=== PATIENT | female | born 1960 | race Two or more races ===

== ENCOUNTER → 2020-09-09 13:20 | Outpatient (BNVA) | payer SELFPAY | PROVIDERS: PCP Internal Medicine; Visit Provider Internal Medicine | DX: E66.9 Obesity, unspecified (principal); Z68.37 Body mass index [BMI] 37.0-37.9, adult; I82.503 Chronic embolism and thrombosis of unspecified deep veins of lower extremity, bilateral; Z51.81 Encounter for therapeutic drug level monitoring; Z79.01 Long term (current) use of anticoagulants | CPT/HCPCS: 85610; 99214 ==

== ENCOUNTER → 2020-09-19 14:27 | Outpatient (BNVA) | payer OTHER, SELFPAY | PROVIDERS: Visit Provider Internal Medicine | DX: I82.503 Chronic embolism and thrombosis of unspecified deep veins of lower extremity, bilateral (principal); Z51.81 Encounter for therapeutic drug level monitoring; Z79.01 Long term (current) use of anticoagulants | CPT/HCPCS: 85610; 99211 ==

== ENCOUNTER → 2020-09-23 08:53 | Outpatient (BNVA) | payer MEDICAID, SELFPAY | PROVIDERS: Visit Provider Psychiatry & Neurology Neurology | DX: G47.33 Obstructive sleep apnea (adult) (pediatric) (principal); F41.8 Other specified anxiety disorders; I10 Essential (primary) hypertension; E05.90 Thyrotoxicosis, unspecified without thyrotoxic crisis or storm; G62.9 Polyneuropathy, unspecified; E53.8 Deficiency of other specified B group vitamins; E55.9 Vitamin D deficiency, unspecified; E66.9 Obesity, unspecified | CPT/HCPCS: 99202 ==

== ENCOUNTER 2020-10-14 17:21 | Outpatient (REF) | payer OTHER, SELFPAY | END 2020-10-14 17:22 | disposition home or self-care (01) | LOC: HO.LAB 17:21 | PROVIDERS: PCP Internal Medicine; Visit Provider Internal Medicine | DX: Z20.828 Contact with and (suspected) exposure to other viral communicable diseases (principal) | CPT/HCPCS: C9803; U0003 ==

== ENCOUNTER → 2020-10-23 15:28 | Outpatient (BNVA) | payer OTHER, SELFPAY | PROVIDERS: PCP Internal Medicine; Visit Provider Internal Medicine | DX: I82.503 Chronic embolism and thrombosis of unspecified deep veins of lower extremity, bilateral (principal); Z51.81 Encounter for therapeutic drug level monitoring; Z79.01 Long term (current) use of anticoagulants | CPT/HCPCS: 85610; 99211 ==

== ENCOUNTER → 2020-10-29 16:10 | Outpatient (BNVA) | payer OTHER, SELFPAY | PROVIDERS: PCP Internal Medicine; Visit Provider Internal Medicine | DX: I82.503 Chronic embolism and thrombosis of unspecified deep veins of lower extremity, bilateral (principal); Z51.81 Encounter for therapeutic drug level monitoring; Z79.01 Long term (current) use of anticoagulants | CPT/HCPCS: Q3014 ==

== ENCOUNTER → 2020-10-31 15:27 | Outpatient (BNVA) | payer OTHER, SELFPAY | PROVIDERS: PCP Internal Medicine; Visit Provider Internal Medicine | DX: I82.503 Chronic embolism and thrombosis of unspecified deep veins of lower extremity, bilateral (principal); Z51.81 Encounter for therapeutic drug level monitoring; Z79.01 Long term (current) use of anticoagulants | CPT/HCPCS: Q3014 ==

== ENCOUNTER → 2020-11-04 08:11 | Outpatient (BNVA) | payer OTHER, SELFPAY | PROVIDERS: PCP Internal Medicine; Referring Provider Internal Medicine; Visit Provider Surgery | DX: Z76.89 Persons encountering health services in other specified circumstances (principal) ==

== ENCOUNTER → 2020-11-05 12:29 | Outpatient (BNVA) | payer OTHER, SELFPAY | PROVIDERS: PCP Internal Medicine; Visit Provider Internal Medicine | DX: I82.503 Chronic embolism and thrombosis of unspecified deep veins of lower extremity, bilateral (principal); Z51.81 Encounter for therapeutic drug level monitoring; Z79.01 Long term (current) use of anticoagulants | CPT/HCPCS: Q3014 ==

== ENCOUNTER → 2020-11-11 14:21 | Outpatient (BNVA) | payer OTHER, SELFPAY | PROVIDERS: PCP Internal Medicine; Visit Provider Internal Medicine | DX: Z76.89 Persons encountering health services in other specified circumstances (principal) ==

== ENCOUNTER → 2020-11-17 17:08 | Outpatient (BNVA) | payer OTHER, SELFPAY | PROVIDERS: PCP Internal Medicine; Visit Provider Internal Medicine | DX: I82.503 Chronic embolism and thrombosis of unspecified deep veins of lower extremity, bilateral (principal); Z51.81 Encounter for therapeutic drug level monitoring; Z79.01 Long term (current) use of anticoagulants | CPT/HCPCS: Q3014 ==

== ENCOUNTER → 2020-11-20 14:51 | Outpatient (BNVA) | payer OTHER, SELFPAY | PROVIDERS: PCP Internal Medicine; Visit Provider Internal Medicine | DX: I82.503 Chronic embolism and thrombosis of unspecified deep veins of lower extremity, bilateral (principal); Z51.81 Encounter for therapeutic drug level monitoring; Z79.01 Long term (current) use of anticoagulants | CPT/HCPCS: Q3014 ==

== ENCOUNTER → 2020-11-24 09:38 | Outpatient (BNVA) | payer OTHER, MEDICAID, SELFPAY | PROVIDERS: PCP Internal Medicine; Visit Provider Surgery | DX: Z76.89 Persons encountering health services in other specified circumstances (principal) ==

== ENCOUNTER → 2020-11-25 10:00 | Outpatient (BNVA) | payer OTHER, SELFPAY | PROVIDERS: Visit Provider Psychiatry & Neurology Neurology | DX: Z76.89 Persons encountering health services in other specified circumstances (principal) ==

== ENCOUNTER → 2020-11-26 08:11 | Outpatient (BNVA) | payer OTHER, SELFPAY | PROVIDERS: PCP Internal Medicine; Visit Provider Dietitian, Registered | DX: E66.9 Obesity, unspecified (principal); Z68.38 Body mass index [BMI] 38.0-38.9, adult | CPT/HCPCS: Q3014 ==

== ENCOUNTER → 2020-12-03 11:40 | Outpatient (BNVA) | payer OTHER, SELFPAY | PROVIDERS: PCP Internal Medicine; Visit Provider Internal Medicine | DX: I82.503 Chronic embolism and thrombosis of unspecified deep veins of lower extremity, bilateral (principal); Z51.81 Encounter for therapeutic drug level monitoring; Z79.01 Long term (current) use of anticoagulants | CPT/HCPCS: Q3014 ==

== ENCOUNTER → 2020-12-10 14:45 | Outpatient (BNVA) | payer OTHER, SELFPAY | PROVIDERS: PCP Internal Medicine; Visit Provider Internal Medicine | DX: I82.503 Chronic embolism and thrombosis of unspecified deep veins of lower extremity, bilateral (principal); Z51.81 Encounter for therapeutic drug level monitoring; Z79.01 Long term (current) use of anticoagulants | CPT/HCPCS: Q3014 ==

== ENCOUNTER → 2020-12-17 11:00 | Outpatient (BNVA) | payer OTHER, SELFPAY | PROVIDERS: PCP Internal Medicine; Visit Provider Internal Medicine | DX: I82.503 Chronic embolism and thrombosis of unspecified deep veins of lower extremity, bilateral (principal); Z51.81 Encounter for therapeutic drug level monitoring; Z79.01 Long term (current) use of anticoagulants | CPT/HCPCS: Q3014 ==

== ENCOUNTER → 2020-12-22 13:14 | Outpatient (BNVA) | payer OTHER, SELFPAY | PROVIDERS: PCP Internal Medicine; Visit Provider Internal Medicine | DX: I82.503 Chronic embolism and thrombosis of unspecified deep veins of lower extremity, bilateral (principal); Z51.81 Encounter for therapeutic drug level monitoring; Z79.01 Long term (current) use of anticoagulants | CPT/HCPCS: Q3014 ==

== ENCOUNTER → 2020-12-25 08:10 | Outpatient (BNVA) | payer OTHER, SELFPAY | PROVIDERS: PCP Internal Medicine; Visit Provider Dietitian, Registered ==

== ENCOUNTER 2020-12-26 13:38 | Outpatient (REF) | payer OTHER, SELFPAY ==
--- NOTE | ~2020-12-26 | MM_ITS ---
EXAMINATION: MM SCREENING DIGITAL BREAST TOMOSYNTHESIS, BILATERAL CLINICAL INFORMATION: Screening. Asymptomatic. The lifetime risk of breast cancer based on the Tyrer-Cuzick Model is 5%. COMPARISON: Mammography: 10/31/2018, 12/13/2016 TECHNIQUE: Digital breast tomosynthesis is performed in both the craniocaudal and mediolateral oblique views along with computer-aided detection (CAD). Synthesized 2D images are generated from the tomosynthesis. Additional left MLO view is provided. FINDINGS: There are scattered areas of fibroglandular density (ACR BI-RADS breast composition Category b). There are no significant masses, abnormal calcifications, or other abnormalities. The axilla and skin contours are unremarkable. No significant changes. MM/MM tomosynthesis screening BI IMPRESSION: No mammographic evidence of malignancy. ASSESSMENT: BI-RADS 1: Negative RECOMMENDATION: Routine annual mammography screening. This patient's information was entered into a reminder system with a target due date for their next mammogram.
== END 2020-12-26 13:39 | disposition home or self-care (01) ==
LOC: HO.MAMMO 13:38
PROVIDERS: PCP Internal Medicine; Visit Provider Internal Medicine
DX: Z12.31 Encounter for screening mammogram for malignant neoplasm of breast (principal)
CPT/HCPCS: 77063; 77067

== ENCOUNTER → 2020-12-30 10:14 | Outpatient (BNVA) | payer OTHER, SELFPAY | PROVIDERS: PCP Internal Medicine; Visit Provider Internal Medicine | DX: I82.503 Chronic embolism and thrombosis of unspecified deep veins of lower extremity, bilateral (principal); Z51.81 Encounter for therapeutic drug level monitoring; Z79.01 Long term (current) use of anticoagulants | CPT/HCPCS: 99211 ==

== ENCOUNTER → 2021-01-02 08:36 | Outpatient (BNVA) | payer OTHER, SELFPAY | PROVIDERS: PCP Internal Medicine; Visit Provider Surgery ==

== ENCOUNTER → 2021-01-06 11:44 | Outpatient (BNVA) | payer OTHER, SELFPAY | PROVIDERS: PCP Internal Medicine; Visit Provider Internal Medicine | DX: I82.503 Chronic embolism and thrombosis of unspecified deep veins of lower extremity, bilateral (principal); Z51.81 Encounter for therapeutic drug level monitoring; Z79.01 Long term (current) use of anticoagulants | CPT/HCPCS: Q3014 ==

== ENCOUNTER → 2021-01-12 14:07 | Outpatient (BNVA) | payer OTHER, SELFPAY | PROVIDERS: PCP Internal Medicine; Visit Provider Internal Medicine | DX: I82.503 Chronic embolism and thrombosis of unspecified deep veins of lower extremity, bilateral (principal); Z51.81 Encounter for therapeutic drug level monitoring; Z79.01 Long term (current) use of anticoagulants | CPT/HCPCS: 99211 ==

== ENCOUNTER → 2021-01-19 15:09 | Outpatient (BNVA) | payer OTHER, SELFPAY | PROVIDERS: PCP Internal Medicine; Visit Provider Internal Medicine | DX: I82.503 Chronic embolism and thrombosis of unspecified deep veins of lower extremity, bilateral (principal); Z51.81 Encounter for therapeutic drug level monitoring; Z79.01 Long term (current) use of anticoagulants | CPT/HCPCS: Q3014 ==

== ENCOUNTER → 2021-01-23 15:57 | Outpatient (BNVA) | payer OTHER, SELFPAY | PROVIDERS: PCP Internal Medicine; Visit Provider Internal Medicine | DX: I82.503 Chronic embolism and thrombosis of unspecified deep veins of lower extremity, bilateral (principal); Z51.81 Encounter for therapeutic drug level monitoring; Z79.01 Long term (current) use of anticoagulants | CPT/HCPCS: Q3014 ==

== ENCOUNTER 2021-01-23 16:54 | Emergency (ER) | payer OTHER, SELFPAY ==
--- NOTE | ~2021-01-23 | XR_ITS ---
EXAMINATION: XR CHEST CLINICAL INFORMATION: Left lower extremity Swelling COMPARISON: Chest x-ray 06/12/2020 TECHNIQUE: 2 views of the chest were obtained. 1740 hours FINDINGS: No significant abnormality is noted involving the heart, lungs, mediastinum, bony thorax or soft tissues. IVC filter in abdomen. XR/XR chest 2V IMPRESSION: Unremarkable examination.
--- NOTE | ~2021-01-23 | US_ITS ---
EXAMINATION: US VENOUS ULTRASOUND WITH DOPPLER LOWER EXTREMITY, LEFT CLINICAL INFORMATION: Edema. History of DVT. COMPARISON: Prior venous Doppler ultrasound exam left lower extremity 12/03/2016 TECHNIQUE: Ultrasound of the deep veins is performed from the hip to the calf with compression sonography and color and pulse Doppler assessment. Spectral analysis with color-flow imaging is performed. FINDINGS: There is normal venous compression and respiratory variation and augmented flow. The visualized common femoral vein, superficial femoral vein, profunda femoral vein, popliteal vein, and the trifurcation region shows no evidence of deep venous thrombosis. There is no significant popliteal fossa cyst. If the patient's symptoms persist, followup ultrasound in 5 days 7 days might be of value to exclude proximal propagation from a non-visualized calf vein. US/US venous duplex LE IMPRESSION: No DVT demonstrated in the left lower extremity.
[2021-01-23 17:04] VITALS: BP 155/78; PULSE 63; RESP 20; TEMP 36.4; O2SAT 100; BMI 38.6
--- NOTE | 2021-01-23 17:31 | ECG_ITS ---
Test Reason : DVT Blood Pressure : / mmHG Vent. Rate : 060 BPM Atrial Rate : 060 BPM P-R Int : 154 ms QRS Dur : 084 ms QT Int : 448 ms P-R-T Axes : 030 011 011 degrees QTc Int : 448 ms Normal sinus rhythm Normal ECG When compared with ECG of 12-JUN-2020 15:55, No significant change was found Referred By: Shea Bello Electronically Signed By:KITA RIVERS
--- NOTE | 2021-01-23 18:00 | PC.NURSE ---
pt return from radiology
--- NOTE | 2021-01-23 18:32 | ED.EXTPRO ---
HPI - Extremity Problem General Chief complaint: Extremity Problem Stated complaint: R/O DVT Time Seen by Provider: 01/23/21 17:29 Source: patient Mode of arrival: ambulatory Limitations: no limitations History of Present Illness HPI Narrative: 60-year-old female with past medical history of DVT with IVC filter on Coumadin, asthma, anxiety, hyperlipidemia, depression, chronic back pain with degenerative disc disease, obstructive sleep apnea, insomnia presents with left lower extremity swelling with concern of recurrent DVT. She does not report chest pain or pressure, palpitations, shortness of breath, shortness of breath on exertions, weakness, abdominal pain, abdominal distention, dysuria, hematuria, loss of balance or weakness. Related Data Home Medications Medication Instructions Recorded Confirmed albuterol sulfate 90 mcg/actuation 2 puff INHALATION Q6H PRN 09/09/20 01/23/21 aerosol inhaler fluticasone propionate 220 2 puff INHALATION BID 09/09/20 01/23/21 mcg/actuation HFA aerosol inhaler gabapentin 600 mg tablet 600 mg PO TID 09/09/20 01/23/21 mecobalamin (vitamin B12) 1,000 1,000 mcg PO DAILY 09/09/20 01/23/21 mcg chewable tablet zolpidem 10 mg tablet 10 mg PO BEDTIME PRN 09/09/20 01/23/21 escitalopram oxalate 10 mg tablet 10 mg PO DAILY 10/01/20 01/23/21 venlafaxine 150 mg 150 mg PO DAILY 10/01/20 01/23/21 capsule,extended release 24 hr cholecalciferol (vitamin D3) 1,250 1,250 mcg PO QWEEK 11/07/20 01/23/21 mcg (50,000 unit) capsule escitalopram oxalate 20 mg tablet 20 mg PO QAM 01/19/21 01/23/21 lorazepam 0.5 mg tablet 0.5 mg PO QAM 01/19/21 01/23/21 Previous Rx's Medication Instructions Recorded atorvastatin 40 mg tablet 40 mg PO DAILY #60 tab 09/09/20 ondansetron 4 mg disintegrating 4 mg PO Q8H PRN 10 Days #30 tab 10/31/20 tablet benzonatate 100 mg capsule 100 mg PO BID PRN 10 Days #30 cap 11/07/20 warfarin 5 mg tablet 10 mg PO DAILY #180 tab 12/02/20 albuterol sulfate 2.5 mg CONTINUOUS NEBULIZATION QID 12/03/20 PRN 30 Days #360 ml tramadol 50 mg tablet 50 mg PO BID PRN 30 Days #60 tab 01/08/21 Allergies Allergy/AdvReac Type Severity Reaction Status Date / Time No Known Allergies Allergy Verified 01/06/21 10:44 Review of Systems Review of Systems: Constitutional: No Fever, No Chills ENT/Mouth: No Ear Pain, No Hoarseness, No sore throat Eyes: No Eye Pain, No Swelling, No Redness, No Foreign Body Cardiovascular: No Chest Pain, No SOB Respiratory: No Cough, No Dyspnea Gastrointestinal: No Nausea, No Vomiting, No Diarrhea, No abdominal Pain Genitourinary: No Dysuria, No Hematuria Musculoskeletal: Positive left lower extremity swelling, No joint pain, No Myalgias, No Joint Swelling Skin: No Skin lacerations, No rash Neuro: No Weakness, No Numbness, No Paresthesias, No Loss of Consciousness, No Dizziness, No Headache Psych: No Anxiety/Panic, No Depression Heme/Lymph: no easy bruising, no Lymphadenopathy Endocrine: No Polyuria, No Polydipsia Yes all other systems are reviewed and are negative PMFSH Past Medical History Attestation statement: The following information was validated with the patient. Source: old records reviewed Medical History Anxiety Asthma Chronic low back pain Condyloma acuminata COVID-19 DDD (degenerative disc disease) Depression DVT (deep venous thrombosis) Fibromyalgia Hyperthyroidism Insomnia Lung granuloma Neuropathy Obesity (BMI 30-39.9) Obstructive sleep apnea Obstructive sleep apnea Phlegmasia cerulea dolens Phlegmasia cerulea dolens Vitamin B12 deficiency Vitamin D deficiency Surgical History Benign neoplasm of neck History of bilateral oophorectomy History of bilateral tubal ligation History of carpal tunnel release History of colonoscopy History of embolectomy S/P IVC filter Family History Family History Father Liver cirrhosis Cancer Mother Heart attack Coronary artery disease Asthma Diabetes mellitus Brother No problems noted. Sister No problems noted. Sister No problems noted. Sister No problems noted. Sister No problems noted. Sister No problems noted. Sister No problems noted. Sister No problems noted. Sister No problems noted. Sister No problems noted. Sister No problems noted. Sister No problems noted. Sister No problems noted. Sister No problems noted. Paternal Aunt Colon cancer Son Histiocytosis Son No problems noted. Son No problems noted. Social History Social History Alcohol intake: never Smoking Status: Never smoker Smoked in Last 30 Days: No Use of substances other than those prescribed or required for medical reasons: No Advance Directives: No Advance Directives Information Provided: Yes Physical Exam Vital Signs: Vital Signs: Last Vital Signs Temp 98.0 F 01/23/21 20:10 Pulse 66 01/23/21 20:10 Resp 19 01/23/21 20:10 BP 151/76 H 01/23/21 20:10 Pulse Ox 99 01/23/21 20:10 Body Mass Index 38.6 Appearance: Alert. Oriented X3. No acute distress. Eyes: Pupils equal, round and reactive to light. EOMI, sclera nonicteric ENT: Pharynx normal. Moist mucous membranes Neck: Normal inspection. Neck supple. CVS: Normal heart rate and rhythm. Pulses normal. Respiratory: No respiratory distress. Lung sounds clear to auscultation all lobes Abdomen: Soft and nontender. Skin: Skin warm and dry. Normal skin color. Normal skin turgor. Extremities: Left lower extremity edema and swelling, no erythema noted. Full range of motion Neuro: No motor deficit. No sensory deficit. Cranial nerves 2-12 intact Course Course Course Narrative: 60-year-old female with past medical history of DVT with IVC filter on Coumadin, anxiety, depression, asthma, chronic lower back pain with degenerative disc disease, fibromyalgia, insomnia, and obstructive sleep apnea presents with swelling to the left lower extremity. Plan of care is for duplex study to left lower extremity, CBC, Chem 7, PT INR. Will order BNP and chest x-ray to rule out CHF. Review of records indicates that she had normal stress test on July 04, 2020. Last visit with Dr. Garland was 01/02/2021 with a normal visit, meets with Dr. Garland on a regular basis for weight loss management. At 7:18 p.m. venous duplex is negative. Labs are pending. At 7:55 p.m. lab values are normal, INR is 1.8, she was advised to follow-up with [facility] or whomever prescribed her Coumadin for titration. Patient verbalized understanding of and agrees to plan of care to discharge home. MDM - Extremity (Nontraumatic) Differential Diagnosis Differential diagnosis: Likely cellulitis, lower extremity edema and deep vein thrombosis of lower extremity Medical Records Attestation: I reviewed the patient's medical records. Lab Data Attestation: I reviewed the patient's lab results. Result diagrams: 01/23/21 19:10 01/23/21 19:10 Labs: Lab Results 01/23/21 01/23/21 01/23/21 Range/Units 19:10 19:10 19:10 WBC 8.2 (4.8-10.8) X10*3/uL RBC 4.49 (4.20-5.50) X10*6/uL Hgb 12.4 (12.0-16.0) g/dl Hct 38.9 (37-47) % MCV 86.6 (80-98) fL MCH 27.6 (27.0-33.0) pg MCHC 31.9 (31.0-35.0) g/dl RDW 14.6 (11.0-16.0) % Plt Count 224 (160-400) X10*3/uL MPV 10.5 (9.4-12.3) fL Immature Gran % (Auto) 0.2 (0.0-0.4) % Neut % (Auto) 51.2 (45-73) % Lymph % (Auto) 39.9 (20-40) % Davison % (Auto) 7.3 (2-11) % Eos % (Auto) 0.9 (0-4) % Baso % (Auto) 0.5 (0-2) % Lymph # (Auto) 3.3 (1.2-4.9) X10*3/uL Davison # (Auto) 0.6 (0.1-1.2) X10*3/uL Eos # (Auto) 0.1 (0.0-0.4) X10*3/uL Baso # (Auto) 0.0 (0.0-0.2) X10*3/uL Abs Immat Gran (auto) 0.02 (0.00-0.03) X10*3/uL Absolute Neuts (auto) 4.2 (2.0-8.3) X10*3/uL Absolute Nucleated RBC 0.000 (0.0-0.012) X10*3/uL Nucleated RBC % (auto) 0.0 (0.0-0.2) /100WBC PT 21.8 H (10.8-13.0) SEC INR 1.8 H (0.9-1.1) APTT 39.9 H (24.1-38.0) SEC Sodium 139 (135-145) mmol/L Potassium 4.2 (3.3-5.1) mmol/L Chloride 105 (96-108) mmol/L Carbon Dioxide 24 (22-29) mmol/L Anion Gap 14 (12-20) BUN 19 H (9-16) mg/dL Creatinine 0.79 (0.5-1.4) mg/dL Estim Creat Clear Calc 82.7 Estimated GFR > 60 Random Glucose 88 (60-115) mg/dL Calcium 9.1 (8.4-10.2) mg/dL B-Natriuretic Peptide (<100) pg/mL 01/23/21 Range/Units 19:10 WBC (4.8-10.8) X10*3/uL RBC (4.20-5.50) X10*6/uL Hgb (12.0-16.0) g/dl Hct (37-47) % MCV (80-98) fL MCH (27.0-33.0) pg MCHC (31.0-35.0) g/dl RDW (11.0-16.0) % Plt Count (160-400) X10*3/uL MPV (9.4-12.3) fL Immature Gran % (Auto) (0.0-0.4) % Neut % (Auto) (45-73) % Lymph % (Auto) (20-40) % Davison % (Auto) (2-11) % Eos % (Auto) (0-4) % Baso % (Auto) (0-2) % Lymph # (Auto) (1.2-4.9) X10*3/uL Davison # (Auto) (0.1-1.2) X10*3/uL Eos # (Auto) (0.0-0.4) X10*3/uL Baso # (Auto) (0.0-0.2) X10*3/uL Abs Immat Gran (auto) (0.00-0.03) X10*3/uL Absolute Neuts (auto) (2.0-8.3) X10*3/uL Absolute Nucleated RBC (0.0-0.012) X10*3/uL Nucleated RBC % (auto) (0.0-0.2) /100WBC PT (10.8-13.0) SEC INR (0.9-1.1) APTT (24.1-38.0) SEC Sodium (135-145) mmol/L Potassium (3.3-5.1) mmol/L Chloride (96-108) mmol/L Carbon Dioxide (22-29) mmol/L Anion Gap (12-20) BUN (9-16) mg/dL Creatinine (0.5-1.4) mg/dL Estim Creat Clear Calc Estimated GFR Random Glucose (60-115) mg/dL Calcium (8.4-10.2) mg/dL B-Natriuretic Peptide 16 (<100) pg/mL Imaging Data Venous US: Attestation: I personally reviewed and interpreted this imaging study as follows: Radiologist's impression: EXAMINATION: US VENOUS ULTRASOUND WITH DOPPLER LOWER EXTREMITY, LEFT CLINICAL INFORMATION: Edema. History of DVT. COMPARISON: Prior venous Doppler ultrasound exam left lower extremity 12/03/2016 TECHNIQUE: Ultrasound of the deep veins is performed from the hip to the calf with compression sonography and color and pulse Doppler assessment. Spectral analysis with color-flow imaging is performed. FINDINGS: There is normal venous compression and respiratory variation and augmented flow. The visualized common femoral vein, superficial femoral vein, profunda femoral vein, popliteal vein, and the trifurcation region shows no evidence of deep venous thrombosis. There is no significant popliteal fossa cyst. If the patient's symptoms persist, followup ultrasound in 5 days 7 days might be of value to exclude proximal propagation from a non-visualized calf vein. US/US venous duplex LE LT IMPRESSION: No DVT demonstrated in the left lower extremity. Chest x-ray: Attestation: I personally reviewed and interpreted this imaging study as follows: Radiologist's impression: EXAMINATION: XR CHEST CLINICAL INFORMATION: Left lower extremity Swelling COMPARISON: Chest x-ray 06/12/2020 TECHNIQUE: 2 views of the chest were obtained. 1740 hours FINDINGS: No significant abnormality is noted involving the heart, lungs, mediastinum, bony thorax or soft tissues. IVC filter in abdomen. XR/XR chest 2V IMPRESSION: Unremarkable examination. ECG Data Attestation EKG: I personally reviewed and interpreted this ECG as follows: ECG interpretation date: 01/23/21 ECG interpretation time: 18:23 Prior ECG tracings: available for review Interpretation: Vent. rate 60 BPM UT interval 154 ms QRS duration 84 ms QT/QTc 448/448 ms P-R-T axes 30 11 11 Normal sinus rhythm Normal ECG When compared with ECG of 12-JUN-2020 15:55, No significant change was found Discharge Plan Discharge Clinical Impression: Lower extremity edema Patient Disposition: Home, Self-Care Instructions: Leg Edema (ED) Additional Instructions: You were evaluated for left lower extremity edema. Venous duplex ultrasound is negative for blood clot, your INR is 1.8. Please speak to him ever prescribed your Coumadin for proper titration. Thank you for choosing this emergency department for evaluation. Please follow-up with primary care physician as needed. Return to the emergency department for any new, concerning, or worsening symptoms. Prescriptions: No Action ondansetron 4 mg tablet,disintegrating 4 mg PO Q8H PRN (Reason: nausea and vomiting) 10 Days Qty: 30 RF: 1 warfarin 5 mg tablet 10 mg PO DAILY Qty: 180 RF: 0 albuterol sulfate 2.5 mg /3 mL (0.083 %) solution for nebulization 2.5 mg continuous nebulization QID PRN (Reason: shortness of breath or wheezing) 30 Days Qty: 360 RF: 12 tramadol 50 mg tablet 50 mg PO BID PRN (Reason: pain) 30 Days Qty: 60 RF: 0 escitalopram oxalate [Lexapro] 10 mg tablet 10 mg PO DAILY RF: 0 cholecalciferol (vitamin D3) 1,250 mcg (50,000 unit) capsule 1,250 mcg PO QWEEK RF: 0 benzonatate [Tessalon Perles] 100 mg capsule 100 mg PO BID PRN (Reason: cough) 10 Days Qty: 30 RF: 0 escitalopram oxalate 20 mg tablet 20 mg PO QAM RF: 0 lorazepam 0.5 mg tablet 0.5 mg PO QAM RF: 0 gabapentin 600 mg tablet 600 mg PO TID RF: 0 Flovent HFA 220 mcg/actuation HFA aerosol inhaler 2 puff inhalation BID RF: 0 albuterol sulfate [Ventolin HFA] 90 mcg/actuation HFA aerosol inhaler 2 puff inhalation Q6H PRNRF: 0 mecobalamin (vitamin B12) 1,000 mcg tablet,chewable 1,000 mcg PO DAILY RF: 0 zolpidem [Ambien] 10 mg tablet 10 mg PO BEDTIME PRNRF: 0 venlafaxine 150 mg capsule,extended release 24hr 150 mg PO DAILY RF: 0 atorvastatin 40 mg tablet 40 mg PO DAILY Qty: 60 RF: 0 Interventions: ED Discharge Assessment Last Done: 01/23/21 20:18 Discharge Date/Time: 01/23/21 20:19
--- NOTE | 2021-01-23 19:00 | PC.NURSE ---
iv inserted/labs drawn
[2021-01-23 19:16] LABS: MANUAL DIFF FLAG NO
[2021-01-23 19:18] LABS: Basophils Percent Auto 0.5 % (0-2); Eosinophils Absolute Auto 0.1 X10*3/uL (0.0-0.4); Eosinophils Percent Auto 0.9 % (0-4); Hematocrit 38.9 % (37-47); Hemoglobin 12.4 g/dl (12.0-16.0); Imm Gran Abs Auto 0.02 X10*3/uL (0.00-0.03); Imm Gran Pct Auto 0.2 % (0.0-0.4); Lymphocytes Absolute Auto 3.3 X10*3/uL (1.2-4.9); Lymphocytes Percent Auto 39.9 % (20-40); Mean Corpuscular HGB Conc 31.9 g/dl (31.0-35.0); Mean Corpuscular Hemoglobin 27.6 pg (27.0-33.0); Mean Corpuscular Volume 86.6 fL (80-98); Mean Platelet Volume 10.5 fL (9.4-12.3); Monocytes Absolute Auto 0.6 X10*3/uL (0.1-1.2); Monocytes Percent Auto 7.3 % (2-11); Neutrophils Absolute Auto 4.2 X10*3/uL (2.0-8.3); Neutrophils Percent Auto 51.2 % (45-73); Platelet Count 224 X10*3/uL (160-400); Red Blood Count 4.49 X10*6/uL (4.20-5.50); Red Cell Distribution Width 14.6 % (11.0-16.0); White Blood Count 8.2 X10*3/uL (4.8-10.8)
[2021-01-23 19:28] LABS: INTERNATIONAL NORM RATIO 1.8 (0.9-1.1); Prothrombin Time 21.8 SEC (10.8-13.0)
[2021-01-23 19:30] LABS: Partial Thromboplastin Time 39.9 SEC (24.1-38.0)
[2021-01-23 19:41] LABS: Anion Gap 14 (12-20); Blood Urea Nitrogen 19 mg/dL (9-16); Calcium 9.1 mg/dL (8.4-10.2); Carbon Dioxide 24 mmol/L (22-29); Chloride 105 mmol/L (96-108); Creatinine Clr Calc Pharmacy 82.7; Estimated Glomerular Filt Rate > 60; Glucose Random 88 mg/dL (60-115); Potassium 4.2 mmol/L (3.3-5.1); Sodium 139 mmol/L (135-145)
[2021-01-23 19:49] LABS: B Type Natriuretic Peptide 16 pg/mL (<100)
[2021-01-23 20:10] VITALS: BP 151/76; PULSE 66; RESP 19; TEMP 36.7; O2SAT 99
== END 2021-01-23 20:19 | disposition home or self-care (01) ==
PROVIDERS: Nurse Practitioner Family; Emergency Provider Internal Medicine; PCP Internal Medicine
DX: R60.0 Localized edema (principal); E78.5 Hyperlipidemia, unspecified; J45.909 Unspecified asthma, uncomplicated; Z86.718 Personal history of other venous thrombosis and embolism; Z79.01 Long term (current) use of anticoagulants; Z79.899 Other long term (current) drug therapy; Z86.16 Personal history of COVID-19
CPT/HCPCS: 36415; 71046; 80048; 83880; 85025; 85610; 85730; 93005; 93971; 99284

== ENCOUNTER → 2021-01-27 16:09 | Outpatient (BNVA) | payer OTHER, SELFPAY | PROVIDERS: PCP Internal Medicine; Visit Provider Internal Medicine | DX: I82.503 Chronic embolism and thrombosis of unspecified deep veins of lower extremity, bilateral (principal); Z51.81 Encounter for therapeutic drug level monitoring; Z79.01 Long term (current) use of anticoagulants | CPT/HCPCS: Q3014 ==

== ENCOUNTER → 2021-02-02 08:45 | Outpatient (BNVA) | payer OTHER, SELFPAY | PROVIDERS: PCP Internal Medicine; Visit Provider Dietitian, Registered ==

== ENCOUNTER → 2021-02-03 10:04 | Outpatient (BNVA) | payer OTHER, SELFPAY | PROVIDERS: PCP Internal Medicine; Visit Provider Psychiatry & Neurology Neurology | DX: G47.33 Obstructive sleep apnea (adult) (pediatric) (principal) ==

== ENCOUNTER → 2021-02-04 11:08 | Outpatient (BNVA) | payer OTHER, SELFPAY | PROVIDERS: PCP Internal Medicine; Visit Provider Internal Medicine | DX: I82.503 Chronic embolism and thrombosis of unspecified deep veins of lower extremity, bilateral (principal); Z51.81 Encounter for therapeutic drug level monitoring; Z79.01 Long term (current) use of anticoagulants | CPT/HCPCS: Q3014 ==

== ENCOUNTER → 2021-02-11 11:42 | Outpatient (BNVA) | payer OTHER, SELFPAY | PROVIDERS: PCP Internal Medicine; Visit Provider Internal Medicine | DX: I82.503 Chronic embolism and thrombosis of unspecified deep veins of lower extremity, bilateral (principal); Z51.81 Encounter for therapeutic drug level monitoring; Z79.01 Long term (current) use of anticoagulants | CPT/HCPCS: Q3014 ==

== ENCOUNTER → 2021-02-18 10:56 | Outpatient (BNVA) | payer OTHER, SELFPAY | PROVIDERS: PCP Internal Medicine; Visit Provider Internal Medicine | DX: I82.503 Chronic embolism and thrombosis of unspecified deep veins of lower extremity, bilateral (principal); Z51.81 Encounter for therapeutic drug level monitoring; Z79.01 Long term (current) use of anticoagulants | CPT/HCPCS: Q3014 ==

== ENCOUNTER → 2021-02-25 16:18 | Outpatient (BNVA) | payer OTHER, SELFPAY | PROVIDERS: PCP Internal Medicine; Visit Provider Internal Medicine | DX: I82.503 Chronic embolism and thrombosis of unspecified deep veins of lower extremity, bilateral (principal); Z51.81 Encounter for therapeutic drug level monitoring; Z79.01 Long term (current) use of anticoagulants | CPT/HCPCS: Q3014 ==

== ENCOUNTER → 2021-03-04 10:02 | Outpatient (BNVA) | payer OTHER, SELFPAY | PROVIDERS: PCP Internal Medicine; Visit Provider Internal Medicine | DX: I82.503 Chronic embolism and thrombosis of unspecified deep veins of lower extremity, bilateral (principal); Z79.01 Long term (current) use of anticoagulants; Z51.81 Encounter for therapeutic drug level monitoring | CPT/HCPCS: Q3014 ==

== ENCOUNTER 2021-03-10 14:30 | Outpatient (REF) | payer OTHER, SELFPAY ==
--- NOTE | ~2021-03-10 | XR_ITS ---
EXAMINATION: XR CHEST CLINICAL INFORMATION: Cough. COMPARISON: Most recent chest radiograph dated 01/23/2021 TECHNIQUE: 2 views of the chest were obtained. FINDINGS: Probable calcified granuloma within the left lower lobe, unchanged. No new airspace consolidation. No pleural effusion or pneumothorax. Stable cardiomediastinal silhouette. Partially visualized IVC filter. XR/XR chest 2V IMPRESSION: No acute cardiopulmonary findings.
== END 2021-03-10 14:31 | disposition home or self-care (01) ==
LOC: HO.XRAY 14:30
PROVIDERS: PCP Internal Medicine; Visit Provider Internal Medicine
DX: J45.41 Moderate persistent asthma with (acute) exacerbation (principal); J40 Bronchitis, not specified as acute or chronic; R05 Cough; U07.1 COVID-19; G47.33 Obstructive sleep apnea (adult) (pediatric); Z79.899 Other long term (current) drug therapy; Z79.51 Long term (current) use of inhaled steroids
CPT/HCPCS: 71046; 99202

== ENCOUNTER → 2021-03-11 11:46 | Outpatient (BNVA) | payer OTHER, SELFPAY | PROVIDERS: PCP Internal Medicine; Visit Provider Internal Medicine | DX: I82.503 Chronic embolism and thrombosis of unspecified deep veins of lower extremity, bilateral (principal); Z79.01 Long term (current) use of anticoagulants; Z51.81 Encounter for therapeutic drug level monitoring | CPT/HCPCS: Q3014 ==

== ENCOUNTER → 2021-03-18 10:37 | Outpatient (BNVA) | payer OTHER, SELFPAY | PROVIDERS: PCP Internal Medicine; Visit Provider Internal Medicine | DX: I82.503 Chronic embolism and thrombosis of unspecified deep veins of lower extremity, bilateral (principal); Z51.81 Encounter for therapeutic drug level monitoring; Z79.01 Long term (current) use of anticoagulants | CPT/HCPCS: 85610; 99211 ==

== ENCOUNTER → 2021-04-01 10:30 | Outpatient (BNVA) | payer OTHER, SELFPAY | PROVIDERS: PCP Internal Medicine; Visit Provider Internal Medicine | DX: I82.503 Chronic embolism and thrombosis of unspecified deep veins of lower extremity, bilateral (principal); Z51.81 Encounter for therapeutic drug level monitoring; Z79.01 Long term (current) use of anticoagulants | CPT/HCPCS: 85610; 99211 ==

== ENCOUNTER → 2021-04-06 10:49 | Outpatient (BNVA) | payer OTHER, SELFPAY | PROVIDERS: PCP Internal Medicine; Visit Provider Internal Medicine | DX: I82.503 Chronic embolism and thrombosis of unspecified deep veins of lower extremity, bilateral (principal); Z51.81 Encounter for therapeutic drug level monitoring; Z79.01 Long term (current) use of anticoagulants | CPT/HCPCS: 85610; 99211 ==

== ENCOUNTER → 2021-04-08 11:17 | Outpatient (BNVA) | payer OTHER, SELFPAY | PROVIDERS: PCP Internal Medicine; Visit Provider Internal Medicine | DX: J45.41 Moderate persistent asthma with (acute) exacerbation (principal); J40 Bronchitis, not specified as acute or chronic; G47.33 Obstructive sleep apnea (adult) (pediatric) | CPT/HCPCS: 99212 ==

== ENCOUNTER → 2021-04-21 10:03 | Outpatient (BNVA) | payer OTHER, SELFPAY | PROVIDERS: PCP Internal Medicine; Visit Provider Internal Medicine | DX: I82.503 Chronic embolism and thrombosis of unspecified deep veins of lower extremity, bilateral (principal); Z51.81 Encounter for therapeutic drug level monitoring; Z79.01 Long term (current) use of anticoagulants | CPT/HCPCS: 85610; 99211 ==

== ENCOUNTER 2021-04-24 10:31 | Outpatient (REF) | payer OTHER, SELFPAY ==
--- NOTE | 2021-04-24 15:57 | PFT_ITS ---
FLOWS: FEV1 101% of predicted at 2.63 L. FVC 88% of predicted at 2.91 L. FEV1 to FVC ratio of 0.90. No bronchodilator response. LUNG VOLUMES: Total lung capacity 85% of predicted at 4.44 L. Residual volume 72% of predicted at 1.51 L. Slow vital capacity 94% of predicted at 2.93 L. Expiratory reserve volume 49% of predicted at 0.43 L. Diffusion capacity is mildly decreased, diffusion capacity adjust to normal after correction for alveolar ventilation. IMPRESSION: No obstructive or restrictive ventilatory defect. No bronchodilator response. Decreased expiratory reserve volume suggests extrathoracic restriction likely secondary to abdominal obesity. Navdeep Young MD AP/MODL / [id number]
== END 2021-04-24 10:32 | disposition home or self-care (01) ==
LOC: HO.RESP 10:31
PROVIDERS: PCP Internal Medicine; Visit Provider Internal Medicine
DX: J45.41 Moderate persistent asthma with (acute) exacerbation (principal); J40 Bronchitis, not specified as acute or chronic; R05 Cough
CPT/HCPCS: 94060; 94727; 94729

== ENCOUNTER → 2021-04-28 10:26 | Outpatient (BNVA) | payer OTHER, SELFPAY | PROVIDERS: PCP Internal Medicine; Visit Provider Internal Medicine | DX: I82.503 Chronic embolism and thrombosis of unspecified deep veins of lower extremity, bilateral (principal); Z51.81 Encounter for therapeutic drug level monitoring; Z79.01 Long term (current) use of anticoagulants | CPT/HCPCS: 85610; 99211 ==

== ENCOUNTER 2021-05-11 10:04 | Outpatient (REF) | payer OTHER, SELFPAY ==
[2021-05-11 10:49] LABS: MANUAL DIFF FLAG NO
[2021-05-11 10:57] LABS: Basophils Absolute Auto 0.1 X10*3/uL (0.0-0.2); Basophils Percent Auto 1.2 % (0-2); Eosinophils Absolute Auto 0.1 X10*3/uL (0.0-0.4); Eosinophils Percent Auto 1.5 % (0-4); Hematocrit 34.7 % (37-47); Hemoglobin 11.3 g/dl (12.0-16.0); Imm Gran Abs Auto 0.01 X10*3/uL (0.00-0.03); Imm Gran Pct Auto 0.2 % (0.0-0.4); Lymphocytes Absolute Auto 2.4 X10*3/uL (1.2-4.9); Lymphocytes Percent Auto 39.4 % (20-40); Mean Corpuscular HGB Conc 32.6 g/dl (31.0-35.0); Mean Corpuscular Hemoglobin 27.8 pg (27.0-33.0); Mean Corpuscular Volume 85.3 fL (80-98); Monocytes Absolute Auto 0.5 X10*3/uL (0.1-1.2); Monocytes Percent Auto 7.9 % (2-11); Neutrophils Percent Auto 49.8 % (45-73); Platelet Count 249 X10*3/uL (160-400); Red Blood Count 4.07 X10*6/uL (4.20-5.50); Red Cell Distribution Width 14.9 % (11.0-16.0); White Blood Count 6.1 X10*3/uL (4.8-10.8)
[2021-05-11 11:09] LABS: INTERNATIONAL NORM RATIO 1.8 (0.9-1.1); Prothrombin Time 21.5 SEC (10.8-13.0)
[2021-05-11 11:24] LABS: B Type Natriuretic Peptide 42 pg/mL (<100)
[2021-05-11 11:31] LABS: Alanine Aminotransferase 10 U/L (0-31); Albumin Level 4.2 g/dL (3.5-5.0); Alkaline Phosphatase 58 U/L (39-117); Anion Gap 12 (12-20); Aspartate Amino Transferase 19 U/L (5-31); Bilirubin Total 0.5 mg/dL (0.0-1.0); Blood Urea Nitrogen 27 mg/dL (9-16); Calcium 9.2 mg/dL (8.4-10.2); Carbon Dioxide 22 mmol/L (22-29); Chloride 110 mmol/L (96-108); Cholesterol 186 mg/dL; Estimated Glomerular Filt Rate > 60; Glucose Fasting 92 mg/dL (60-99); HDL Cholesterol 55 mg/dL; LDL Cholesterol Calculated 114 mg/dl; Potassium 4.2 mmol/L (3.3-5.1); Sodium 140 mmol/L (135-145); Total Protein 7.1 g/dL (6.5-8.0); Triglycerides 85 mg/dL
[2021-05-11 11:41] LABS: Glucose Urine UA NEG (NEG); Leukocyte Esterase Urine NEG (NEG); Nitrite Urine NEG (NEG); Specific Gravity - Urine 1.025 (1.005-1.025); Urine Blood TRACE (NEG); Urine Ketones NEG (NEG); Urine Protein NEG (NEG-TRACE)
[2021-05-11 11:46] LABS: Appearance Urine CLEAR; Color Urine YELLOW
[2021-05-11 11:56] LABS: TSH reflex Free T4 1.91 uIU/mL (0.32-4.0); Vitamin D 25-OH Total 26.9 ng/mL (>30)
[2021-05-11 11:56] LABS: Mucus Urine TRACE /LPF; RBC Urine 0-2 /HPF (0); Squamous Epithelial Cell Urine 1+ /LPF; WBC Urine 0 /HPF (0-4)
[2021-05-11 11:58] LABS: Folate 15.7 ng/mL (> or = 4.0); Vitamin B12 246 pg/mL (200-900)
[2021-05-11 12:01] LABS: Erythrocyte Sedimentation Rate 16 MM/HR (0-20)
== END 2021-05-11 10:05 | disposition home or self-care (01) ==
LOC: HO.LAB 10:04
PROVIDERS: PCP Internal Medicine; Visit Provider Internal Medicine
DX: I82.503 Chronic embolism and thrombosis of unspecified deep veins of lower extremity, bilateral (principal); Z51.81 Encounter for therapeutic drug level monitoring; Z79.01 Long term (current) use of anticoagulants; R53.83 Other fatigue; R06.00 Dyspnea, unspecified; E53.8 Deficiency of other specified B group vitamins; G62.9 Polyneuropathy, unspecified; E55.9 Vitamin D deficiency, unspecified; E66.9 Obesity, unspecified; E78.00 Pure hypercholesterolemia, unspecified; M79.7 Fibromyalgia
CPT/HCPCS: 36415; 80053; 80061; 81001; 82306; 82607; 82746; 83880; 84443; 85025; 85610; 85652; 99211

== ENCOUNTER → 2021-05-28 11:05 | Outpatient (BNVA) | payer OTHER, SELFPAY | PROVIDERS: PCP Internal Medicine; Visit Provider Internal Medicine | DX: I82.503 Chronic embolism and thrombosis of unspecified deep veins of lower extremity, bilateral (principal); Z51.81 Encounter for therapeutic drug level monitoring; Z79.01 Long term (current) use of anticoagulants | CPT/HCPCS: 85610; 99211 ==

== ENCOUNTER → 2021-06-11 10:29 | Outpatient (BNVA) | payer OTHER, SELFPAY | PROVIDERS: PCP Internal Medicine; Visit Provider Internal Medicine | DX: I82.503 Chronic embolism and thrombosis of unspecified deep veins of lower extremity, bilateral (principal); Z51.81 Encounter for therapeutic drug level monitoring; Z79.01 Long term (current) use of anticoagulants | CPT/HCPCS: 85610; 99211 ==

== ENCOUNTER → 2021-06-25 09:59 | Outpatient (BNVA) | payer OTHER, SELFPAY | PROVIDERS: PCP Internal Medicine; Visit Provider Internal Medicine | DX: I82.503 Chronic embolism and thrombosis of unspecified deep veins of lower extremity, bilateral (principal); Z51.81 Encounter for therapeutic drug level monitoring; Z79.01 Long term (current) use of anticoagulants | CPT/HCPCS: 85610; 99211 ==

== ENCOUNTER → 2021-07-16 10:24 | Outpatient (BNVA) | payer OTHER, SELFPAY | PROVIDERS: PCP Internal Medicine; Visit Provider Internal Medicine | DX: I82.503 Chronic embolism and thrombosis of unspecified deep veins of lower extremity, bilateral (principal); Z51.81 Encounter for therapeutic drug level monitoring; Z79.01 Long term (current) use of anticoagulants | CPT/HCPCS: 85610; 99211 ==

== ENCOUNTER 2021-07-21 09:00 | Emergency (ER) | payer OTHER, SELFPAY ==
--- NOTE | ~2021-07-21 | XR_ITS ---
EXAMINATION: XR KNEE, LEFT CLINICAL INFORMATION: Fall, trauma, pain COMPARISON: Radiographs left knee 06/21/2018 TECHNIQUE: Four views of the left knee. FINDINGS: There is no fracture, dislocation, or suprapatellar effusion. Lateral view is slightly rotated. Hoffa's fat pad appears normal. There is no joint narrowing or erosive changes or chondrocalcinosis. Vascular calcifications present likely M?nckeberg medial calcific sclerosis.? XR/XR knee LT 3V IMPRESSION: No fracture, dislocation, or suprapatellar effusion.
[2021-07-21 09:13] VITALS: BP 142/75; PULSE 58; RESP 18; TEMP 36.5; O2SAT 99; BMI 38.6
--- NOTE | 2021-07-21 09:28 | ED.LOWEXIN ---
HPI - Extremity Injury (Lower) General Chief Complaint: Extremity Injury, Lower Stated Complaint: lt knee pain - fall Time Seen by Provider: 07/21/21 09:27 History of Present Illness HPI Narrative: Patient complains of left knee pain after a fall 2 days ago, she tripped and fell and twisted and banged her left knee, no other injury no headache, no neck pain no back pain Related Data Home Medications Medication Instructions Recorded Confirmed albuterol sulfate 90 mcg/actuation 2 puff INHALATION Q6H PRN 09/09/20 07/16/21 aerosol inhaler (Ventolin HFA) fluticasone propionate 220 2 puff INHALATION BID 09/09/20 07/16/21 mcg/actuation HFA aerosol inhaler (Flovent HFA) mecobalamin (vitamin B12) 1,000 1,000 mcg PO DAILY 09/09/20 07/16/21 mcg chewable tablet zolpidem 10 mg tablet (Ambien) 10 mg PO BEDTIME PRN 09/09/20 07/16/21 venlafaxine 150 mg 150 mg PO DAILY 10/01/20 07/16/21 capsule,extended release 24 hr cholecalciferol (vitamin D3) 1,250 1,250 mcg PO QWEEK 11/07/20 07/16/21 mcg (50,000 unit) capsule escitalopram oxalate 20 mg tablet 20 mg PO QAM 01/19/21 07/16/21 lorazepam 0.5 mg tablet 0.5 mg PO QAM 01/19/21 07/16/21 bupropion HCl 150 mg 24 hr tablet, 150 mg PO QAM 05/04/21 07/16/21 extended release latanoprost 0.005 % eye drops 1 drp OPHTHALMIC (EYE) BEDTIME 06/25/21 07/16/21 Previous Rx's Medication Instructions Recorded atorvastatin 40 mg tablet 40 mg PO DAILY #60 tab 09/09/20 albuterol sulfate 2.5 mg CONTINUOUS NEBULIZATION QID 12/03/20 PRN 30 Days #360 ml warfarin 5 mg tablet 10 mg PO DAILY #180 tab 04/28/21 gabapentin 600 mg tablet 600 mg PO TID #90 tab 06/03/21 Allergies Allergy/AdvReac Type Severity Reaction Status Date / Time No Known Allergies Allergy Verified 06/11/21 10:34 Review of Systems Review of Systems: Positive for left knee pain Negatives are no dizziness no weakness no fainting no feeling faint no headache no neck pain no numbness weakness or tingling no chest pain no back pain no skin rash no fever Yes all other systems are reviewed and are negative [facility] Past Medical History Source: nursing notes reviewed Medical History (Updated 07/22/21 @ 00:02 by Marissa Juarez) Anxiety Asthma Chronic low back pain Condyloma acuminata Cough COVID-19 DDD (degenerative disc disease) Depression DVT (deep venous thrombosis) Exertional dyspnea Fatigue Fibromyalgia Hyperthyroidism Insomnia Lumbar degenerative disc disease Lung granuloma Neuropathy Obesity (BMI 30-39.9) Obstructive sleep apnea Obstructive sleep apnea Phlegmasia cerulea dolens Phlegmasia cerulea dolens Pure hypercholesterolemia Vitamin B12 deficiency Vitamin D deficiency Surgical History Benign neoplasm of neck History of bilateral oophorectomy History of bilateral tubal ligation History of carpal tunnel release History of colonoscopy History of embolectomy S/P IVC filter Family History Family History Father Liver cirrhosis Cancer Mother Heart attack Coronary artery disease Asthma Diabetes mellitus Brother No problems noted. Sister No problems noted. Sister No problems noted. Sister No problems noted. Sister No problems noted. Sister No problems noted. Sister No problems noted. Sister No problems noted. Sister No problems noted. Sister No problems noted. Sister No problems noted. Sister No problems noted. Sister No problems noted. Sister No problems noted. Paternal Aunt Colon cancer Son Histiocytosis Son No problems noted. Son No problems noted. Social History Social History Housing: Apartment Alcohol intake: never Patient Tobacco Use Status: Never used Tobacco Advance Directives: Yes Advance Directives Information Provided: Yes Advance Directives on File: No Patient : No service: No Current occupational status: disabled Physical Exam Vital Signs: Vital Signs: Last Vital Signs Temp 97.7 F 07/21/21 09:13 Pulse 58 07/21/21 09:13 Resp 18 07/21/21 09:13 BP 142/75 H 07/21/21 09:13 Pulse Ox 99 07/21/21 09:13 Body Mass Index 38.6 General appearance no acute distress Head is normocephalic atraumatic Neck is supple and nontender Respiratory no distress The back full range of motion The left knee exam is there is mild swelling, there is anterior tenderness, no obvious effusion extends to 180 and flexes around 90, patient can ambulate with a limp, there is no ligamentous laxity, no evidence of tendon injury and patient can hold a full leg raise, neurovascular intact distal Course Course Course Narrative: Left knee x-ray was negative, patient had no effusion, there was no posterior tenderness, patient with anterior knee pain after a fall is diagnosed with knee sprain and advised to follow with orthopedist as needed, she ambulates easily with her cane Discharge Plan Discharge Clinical Impression: Left knee sprain Patient Disposition: Home, Self-Care Additional Instructions: Use Tylenol as needed X-ray did not show any fracture or bone injury But many injuries will not be seen on x-ray so if pain continues you will need to be evaluated by an orthopedist for soft tissue injuries, or any other injuries not seen on the x-ray Return any time any worse condition or any concerns Prescriptions: No Action albuterol sulfate 2.5 mg /3 mL (0.083 %) solution for nebulization 2.5 mg continuous nebulization QID PRN (Reason: shortness of breath or wheezing) 30 Days Qty: 360 RF: 12 gabapentin 600 mg tablet 600 mg PO TID Qty: 90 RF: 5 bupropion HCl 150 mg tablet extended release 24 hr 150 mg PO QAM RF: 0 cholecalciferol (vitamin D3) 1,250 mcg (50,000 unit) capsule 1,250 mcg PO QWEEK RF: 0 escitalopram oxalate 20 mg tablet 20 mg PO QAM RF: 0 lorazepam 0.5 mg tablet 0.5 mg PO QAM RF: 0 latanoprost 0.005 % drops 1 drp ophthalmic (eye) BEDTIME RF: 0 Flovent HFA 220 mcg/actuation HFA aerosol inhaler 2 puff inhalation BID RF: 0 albuterol sulfate [Ventolin HFA] 90 mcg/actuation HFA aerosol inhaler 2 puff inhalation Q6H PRNRF: 0 mecobalamin (vitamin B12) 1,000 mcg tablet,chewable 1,000 mcg PO DAILY RF: 0 zolpidem [Ambien] 10 mg tablet 10 mg PO BEDTIME PRNRF: 0 venlafaxine 150 mg capsule,extended release 24hr 150 mg PO DAILY RF: 0 atorvastatin 40 mg tablet 40 mg PO DAILY Qty: 60 RF: 0 warfarin 5 mg tablet 10 mg PO DAILY Qty: 180 RF: 2 Referrals: Jamie Maxwell MD [Physician] - 2 days (Left knee injury) Interventions: ED Discharge Assessment Last Done: 07/21/21 10:57 Discharge Date/Time: 07/21/21 11:01
== END 2021-07-21 11:01 | disposition home or self-care (01) ==
PROVIDERS: Emergency Provider Emergency Medicine; PCP Internal Medicine
DX: S83.92XA Sprain of unspecified site of left knee, initial encounter (principal); X50.1XXA Overexertion from prolonged static or awkward postures, initial encounter; Y93.9 Activity, unspecified; Y92.9 Unspecified place or not applicable; Y99.9 Unspecified external cause status; Z86.718 Personal history of other venous thrombosis and embolism; Z79.01 Long term (current) use of anticoagulants
CPT/HCPCS: 73562; 99283

== ENCOUNTER → 2021-08-06 10:12 | Outpatient (BNVA) | payer OTHER, SELFPAY | PROVIDERS: PCP Internal Medicine; Visit Provider Internal Medicine | DX: I82.503 Chronic embolism and thrombosis of unspecified deep veins of lower extremity, bilateral (principal); Z51.81 Encounter for therapeutic drug level monitoring; Z79.01 Long term (current) use of anticoagulants | CPT/HCPCS: 85610; 99211 ==

== ENCOUNTER 2021-08-16 11:44 | Emergency (ER) | payer OTHER, SELFPAY ==
[2021-08-16 11:51] VITALS: BP 112/68; PULSE 60; RESP 60; TEMP 36.9; O2SAT 99; BMI 40.1
--- NOTE | 2021-08-16 13:41 | ED_ITS ---
HPI - Wound/Laceration General Chief Complaint: Wound/Laceration Stated Complaint: lac rt thumb Time Seen by Provider: 08/16/21 12:58 Source: patient Mode of arrival: ambulatory Limitations: language barrier History of Present Illness HPI narrative: 60-year-old female here laceration to right thumb while washing glasses today. A glass broke and cut her. No numbness or tingling, bleeding is controlled. Patient is not up-to-date on her tests. Onset (ago): hour(s) (2) Extremity Location: right: hand Place: home Patient tetanus UTD: No Context: accidental Associated symptoms: pain Treatments prior to arrival: bandage Related Data Home Medications Medication Instructions Recorded Confirmed albuterol sulfate 90 mcg/actuation 2 puff INHALATION Q6H PRN 09/09/20 07/16/21 aerosol inhaler (Ventolin HFA) fluticasone propionate 220 2 puff INHALATION BID 09/09/20 07/16/21 mcg/actuation HFA aerosol inhaler (Flovent HFA) mecobalamin (vitamin B12) 1,000 1,000 mcg PO DAILY 09/09/20 07/16/21 mcg chewable tablet zolpidem 10 mg tablet (Ambien) 10 mg PO BEDTIME PRN 09/09/20 07/16/21 venlafaxine 150 mg 150 mg PO DAILY 10/01/20 07/16/21 capsule,extended release 24 hr cholecalciferol (vitamin D3) 1,250 1,250 mcg PO QWEEK 11/07/20 07/16/21 mcg (50,000 unit) capsule escitalopram oxalate 20 mg tablet 20 mg PO QAM 01/19/21 07/16/21 lorazepam 0.5 mg tablet 0.5 mg PO QAM 01/19/21 07/16/21 bupropion HCl 150 mg 24 hr tablet, 150 mg PO QAM 05/04/21 07/16/21 extended release latanoprost 0.005 % eye drops 1 drp OPHTHALMIC (EYE) BEDTIME 06/25/21 07/16/21 Previous Rx's Medication Instructions Recorded atorvastatin 40 mg tablet 40 mg PO DAILY #60 tab 09/09/20 albuterol sulfate 2.5 mg CONTINUOUS NEBULIZATION QID 12/03/20 PRN 30 Days #360 ml warfarin 5 mg tablet 10 mg PO DAILY #180 tab 04/28/21 gabapentin 600 mg tablet 600 mg PO TID #90 tab 06/03/21 Allergies Allergy/AdvReac Type Severity Reaction Status Date / Time No Known Allergies Allergy Verified 08/16/21 11:51 Review of Systems Constitutional: Constitutional: Denies body ache(s), Denies chills, Denies fatigue, Denies fever(s), Denies headache(s), Denies malaise and Denies weakness Eyes: Eyes: Denies diplopia ENT: Denies vertigo, Denies dizziness, Denies headache(s) and Denies throat swelling Cardiovascular: Cardiovascular: Denies chest pain, Denies syncope, Denies leg edema, Denies lightheadedness, Denies Loss of Consciousness, Denies palpitations and Denies dyspnea Respiratory: Respiratory: Denies chest congestion, Denies cough and Denies dyspnea Musculoskeletal: Musculoskeletal: Reports no additional musculoskeletal complaints Integumentary/Breasts: Comments: Laceration to right thumb Neurologic: Denies confusion, Denies vertigo, Denies dizziness, Denies syncope, Denies headache(s) and Denies weakness Psychiatric: Psychiatric: Denies anxiety, Denies confusion and Denies depression Endocrine: Endocrine: Denies fatigue and Denies palpitations Allergic/Immunologic: Allergic/Immunologic: Denies throat swelling [facility] Past Medical History Medical History Anxiety Asthma Chronic low back pain Condyloma acuminata Cough COVID-19 DDD (degenerative disc disease) Depression DVT (deep venous thrombosis) Exertional dyspnea Fatigue Fibromyalgia Hyperthyroidism Insomnia Lumbar degenerative disc disease Lung granuloma Neuropathy Obesity (BMI 30-39.9) Obstructive sleep apnea Obstructive sleep apnea Phlegmasia cerulea dolens Phlegmasia cerulea dolens Pure hypercholesterolemia Vitamin B12 deficiency Vitamin D deficiency Surgical History Benign neoplasm of neck History of bilateral oophorectomy History of bilateral tubal ligation History of carpal tunnel release History of colonoscopy History of embolectomy S/P IVC filter Family History Family History Father Liver cirrhosis Cancer Mother Heart attack Coronary artery disease Asthma Diabetes mellitus Brother No problems noted. Sister No problems noted. Sister No problems noted. Sister No problems noted. Sister No problems noted. Sister No problems noted. Sister No problems noted. Sister No problems noted. Sister No problems noted. Sister No problems noted. Sister No problems noted. Sister No problems noted. Sister No problems noted. Sister No problems noted. Paternal Aunt Colon cancer Son Histiocytosis Son No problems noted. Son No problems noted. Social History Social History Housing: Apartment Alcohol intake: never Patient Tobacco Use Status: Never used Tobacco Advance Directives: No Advance Directives Information Provided: Yes Patient : No service: No Current occupational status: disabled Physical Exam Vital Signs: Vital Signs: Last Vital Signs Temp 98.4 F 08/16/21 11:51 Pulse 60 08/16/21 11:51 Resp 60 H 08/16/21 11:51 BP 112/68 08/16/21 11:51 Pulse Ox 99 08/16/21 11:51 Body Mass Index 40.1 Const: General: No confusion Nutritional Appearance: well nourished Orientation/consciousness: No confusion Limitations: no limitations Eyes: Conjunctivae: conjunctivae normal Pupils: Equal, round and reactive pupils present EOM: EOMs intact bilaterally Neck: Neck: Yes full ROM, Yes no lymphadenopathy and Yes supple Resp: Effort & Inspection: normal respiratory effort and able to speak in complete sentences Auscultation: clear to auscultation bilaterally, no crackles, no rales, no rhonchi and no wheezes Cardio: Rate: regular rate Rhythm: regular rhythm Heart sounds: S1 normal heart sound present and S2 normal heart sound present Neuro: General: No confusion Cranial nerves: Yes Equal, round and reactive pupils present Extrem: General: Yes normal to inspection and Yes full ROM Psych: Appearance: grossly normal Affect: normal affect Attitude: cooperative Thought process: Normal thought process present Procedures Laceration Laceration 1: Site: hand Side (If applicable): right Size (cm): 3 Description: linear Depth: simple, single layer Local Anesthetic: lidocaine 1% Amount of anesthesia used (mL): 2 Pre-repair: wound explored, irrigated extensively and deep structures intact Skin layer closed with: vicryl Size (cm): 4-0 Number of sutures: 5 Discharge Plan Discharge Clinical Impression: Laceration Patient Disposition: Home, Self-Care Instructions: Laceration (ED) Additional Instructions: Please get the stitches removed in 1 week. That would be August 23. You have FIVE stitches. You can come here to the emergency room, you can see her primary care or go to an urgent care to get them removed. Please leave the bandage if placed on until tomorrow. At that time you can take it off, washed with soap and water, apply antibiotic ointment thinly, apply nonstick dressing, and wrap it back up. Please do this for the next 3-4 days. After that you can just wash with soap and water and put a Band-Aid. Use thumb splint for comfort, it will help so that the stitches do not get pulled out. If you have redness, swelling, warmth, or pus around the site, these are signs of infection, please return to be seen. Quite los puntos en 1 semana. Eso ser?a el 3 de . Tienes REX puntos. Puede venir aqu? a la sherri de emergencias, puede hazel issa atenci?n primaria o ir a erika atenci?n de urgencia para que se los retiren. Deje el vendaje si se lo coloc? hasta ma?lucina. En susanna momento se puede quitar, kelly con agua y jab?n, aplicar erika pomada antibi?dinora finamente, aplicar un ap?sito antiadherente y volver a colocar r?pidamente. Rinku esto sil los pr?ximos 3-4 d?as. Despu?s de eso, puede lavarse con agua y jab?n y ponerse erika tirita. Use erika f?aldo para el pulgar para mayor comodidad, ayudar? a que los puntos no se salgan. Si tiene enrojecimiento, hinchaz?n, calor o pus alrededor del sitio, estos son signos de infecci?n, regrese para que lo examinen. Prescriptions: No Action albuterol sulfate 2.5 mg /3 mL (0.083 %) solution for nebulization 2.5 mg continuous nebulization QID PRN (Reason: shortness of breath or wheezing) 30 Days Qty: 360 RF: 12 gabapentin 600 mg tablet 600 mg PO TID Qty: 90 RF: 5 bupropion HCl 150 mg tablet extended release 24 hr 150 mg PO QAM RF: 0 cholecalciferol (vitamin D3) 1,250 mcg (50,000 unit) capsule 1,250 mcg PO QWEEK RF: 0 escitalopram oxalate 20 mg tablet 20 mg PO QAM RF: 0 lorazepam 0.5 mg tablet 0.5 mg PO QAM RF: 0 latanoprost 0.005 % drops 1 drp ophthalmic (eye) BEDTIME RF: 0 Flovent HFA 220 mcg/actuation HFA aerosol inhaler 2 puff inhalation BID RF: 0 albuterol sulfate [Ventolin HFA] 90 mcg/actuation HFA aerosol inhaler 2 puff inhalation Q6H PRNRF: 0 mecobalamin (vitamin B12) 1,000 mcg tablet,chewable 1,000 mcg PO DAILY RF: 0 zolpidem [Ambien] 10 mg tablet 10 mg PO BEDTIME PRNRF: 0 venlafaxine 150 mg capsule,extended release 24hr 150 mg PO DAILY RF: 0 atorvastatin 40 mg tablet 40 mg PO DAILY Qty: 60 RF: 0 warfarin 5 mg tablet 10 mg PO DAILY Qty: 180 RF: 2 Print Language: Bengali
[2021-08-16] MEDS: Diphth,Pertus(ACell),Tet Adult 0.5 ML SYRINGE IM (14:16)
[2021-08-16] MEDS: Lidocaine HCl 1 % 20 ML VIAL 10 ML INFILTRATI (14:17)
== END 2021-08-16 14:37 | disposition home or self-care (01) ==
PROVIDERS: Emergency Provider Emergency Medicine Emergency Medical Services; PCP Internal Medicine
DX: S61.011A Laceration without foreign body of right thumb without damage to nail, initial encounter (principal); M79.644 Pain in right finger(s); W25.XXXA Contact with sharp glass, initial encounter; Y93.9 Activity, unspecified; Y92.9 Unspecified place or not applicable; Y99.9 Unspecified external cause status; Z79.899 Other long term (current) drug therapy
CPT/HCPCS: 12002; 90471; 90715; 99284

== ENCOUNTER → 2021-08-20 09:35 | Outpatient (BNVA) | payer OTHER, SELFPAY | PROVIDERS: PCP Internal Medicine; Visit Provider Internal Medicine | DX: I82.503 Chronic embolism and thrombosis of unspecified deep veins of lower extremity, bilateral (principal); Z51.81 Encounter for therapeutic drug level monitoring; Z79.01 Long term (current) use of anticoagulants | CPT/HCPCS: 85610; 99211 ==

== ENCOUNTER 2021-08-27 09:37 | Outpatient (RCR) | payer OTHER, SELFPAY ==
--- NOTE | 2021-08-27 11:34 | MHC.PT.EP ---
[facility] [place] Office [place] Office [place] Office [address] Yajaira Espinoza [address] [phone] F: [phone] F: [phone] F: [phone] F: [phone] Physical Therapy Plan of Care Date of Evaluation: Date of Surgery: n/a Diagnosis: pain in L leg, hx of falling Assessment: Patient is a 60 year old female presenting to PT with complaints of pain in L knee and leg. Pt reports onset of pain began most recently about a month ago due to a fall however she has had residual pain and weakness in that leg since a blood clot surgery 17 years ago. She presents today with impairments in hip strength, knee strength, knee ROM, balance, and diffuse ttp. Pt's current occupation is none, with baseline physical activities including ADLs and ambulation. 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 Clinical presentation today is most consistent with signs and sx associated with L knee strain as a result from a fall and pt will benefit from skilled PT to address the following problems and impairments noted upon evaluation: hip strength, knee strength, knee ROM, balance, and diffuse ttp. These problems limit the patient with the following functional activities: ambulation, ADLs, and squatting. The prescribed treatment plan of care is medically necessary. Co-morbidities of hx DVT and fibromyalgia were identified and taken into considerations of plan of care. Pt was educated on HEP, role of PT, prognosis, POC. Frequency and Duration: The patient will be seen 2x week x 4 weeks Short Term Goals: Pt will demonstrate improved L knee AROM by 30 degrees for improved ability to transfer in 2 weeks. Pt will demonstrate improved knee strength by 1/3 MMT for improved ability to transfer in 2 weeks. Pt will demonstrate improved hip strength by 1/3 MMT for improved lumbopelvic stability with gait in 2 weeks. Pt will demonstrate ability to maintain tandem stance x 30 sec B in 2 weeks for decrease risk of future falls. Prepper Goals: Pt will demonstrate ability to ambulate community distances with min to no pain or feelings of limitations in 4 weeks. Pt will demonstrate ability to squat to a chair and stand without use of UE in 4 weeks for improved efficiency with transfers. Treatment Plan: Modalities to reduce pain, spasms and effusion. Manual therapy to restore motion and function. Therapeutic exercise to improve strength and flexibility. Neuromuscular re-education for posture and balance. Therapeutic activities to return to functional activities of daily living. Electronically signed by: Aliza Dale, PT, DPT, ATC Please sign and return to therapist. Thank you for your referral.
--- NOTE | 2021-09-09 15:22 | MHC.PT.DC ---
[facility] [place] Office [place] Office [place] Office [address] Espinoza [address] [phone] F: [phone] F: [phone] F: [phone] F: [phone] Physical Therapy Discharge Report Diagnosis: pain in L leg, hx of falling Date of Surgery: n/a Date of Evaluation: 08/27/21 Date of Discharge: 09/09/21 Treatments to Date: 1 Cancellations to Date: 0 No Shows to Date: 2 Discharge Status: Visit Non-compliance Discharge Summary: Pt has failed to comply with [facility] attendance policy and no showed all appointments since eval. Current pt status unknown. Electronically signed by: Aliza Dale, PT, DPT, ATC Please sign and return to therapist. Thank you for your referral.
== END 2021-09-09 15:22 | disposition home or self-care (01) ==
LOC: HO.PT 09:37
PROVIDERS: PCP Internal Medicine; Visit Provider Internal Medicine
DX: M79.605 Pain in left leg (principal); Z91.81 History of falling
CPT/HCPCS: 97110; 97161

== ENCOUNTER → 2021-09-11 11:28 | Outpatient (BNVA) | payer OTHER, SELFPAY | PROVIDERS: PCP Internal Medicine; Visit Provider Internal Medicine | DX: I82.503 Chronic embolism and thrombosis of unspecified deep veins of lower extremity, bilateral (principal); Z51.81 Encounter for therapeutic drug level monitoring; Z79.01 Long term (current) use of anticoagulants | CPT/HCPCS: 85610; 99211 ==

== ENCOUNTER → 2021-09-14 14:19 | Outpatient (BNVA) | payer OTHER, SELFPAY | PROVIDERS: PCP Internal Medicine; Visit Provider Internal Medicine | DX: I82.503 Chronic embolism and thrombosis of unspecified deep veins of lower extremity, bilateral (principal); Z51.81 Encounter for therapeutic drug level monitoring; Z79.01 Long term (current) use of anticoagulants | CPT/HCPCS: 85610; 99211 ==

== ENCOUNTER → 2021-09-16 08:52 | Outpatient (BNVA) | payer OTHER, SELFPAY | PROVIDERS: PCP Internal Medicine; Visit Provider Internal Medicine | DX: I82.503 Chronic embolism and thrombosis of unspecified deep veins of lower extremity, bilateral (principal); Z51.81 Encounter for therapeutic drug level monitoring; Z79.01 Long term (current) use of anticoagulants | CPT/HCPCS: 85610; 99211 ==

== ENCOUNTER → 2021-09-18 08:48 | Outpatient (BNVA) | payer OTHER, SELFPAY | PROVIDERS: PCP Internal Medicine; Visit Provider Internal Medicine | DX: I82.503 Chronic embolism and thrombosis of unspecified deep veins of lower extremity, bilateral (principal); Z51.81 Encounter for therapeutic drug level monitoring; Z79.01 Long term (current) use of anticoagulants | CPT/HCPCS: 85610; 99211 ==

== ENCOUNTER → 2021-10-01 09:33 | Outpatient (BNVA) | payer OTHER, SELFPAY | PROVIDERS: PCP Internal Medicine; Visit Provider Internal Medicine | DX: I82.503 Chronic embolism and thrombosis of unspecified deep veins of lower extremity, bilateral (principal); Z79.01 Long term (current) use of anticoagulants; Z51.81 Encounter for therapeutic drug level monitoring | CPT/HCPCS: 85610; 99211 ==

== ENCOUNTER → 2021-10-14 09:20 | Outpatient (BNVA) | payer OTHER, SELFPAY | PROVIDERS: PCP Internal Medicine; Visit Provider Internal Medicine | DX: I82.503 Chronic embolism and thrombosis of unspecified deep veins of lower extremity, bilateral (principal); Z51.81 Encounter for therapeutic drug level monitoring; Z79.01 Long term (current) use of anticoagulants | CPT/HCPCS: 85610; 99211 ==

== ENCOUNTER → 2021-11-05 09:28 | Outpatient (BNVA) | payer OTHER, SELFPAY | PROVIDERS: PCP Internal Medicine; Visit Provider Internal Medicine | DX: I82.503 Chronic embolism and thrombosis of unspecified deep veins of lower extremity, bilateral (principal); Z51.81 Encounter for therapeutic drug level monitoring; Z79.01 Long term (current) use of anticoagulants | CPT/HCPCS: 85610; 99211 ==

== ENCOUNTER 2021-11-17 13:24 | Outpatient (REF) | payer OTHER, SELFPAY ==
--- NOTE | ~2021-11-17 | XR_ITS ---
EXAMINATION: XR hip RT min 2V, XR lumbar spine 2-3V, XR sacroiliac joint 1-2V CLINICAL INFORMATION: Reason for Exam M54.41 - Lumbago with sciatica, right side COMPARISON: Left hip radiographs 08/17/2013 TECHNIQUE: 3 views of the lumbar spine, 3 views of the sacroiliac joints and 2 views of the right hip XR/XR hip RT min 2V FINDINGS/IMPRESSION: 5 nonrib-bearing lumbar-type vertebral bodies. Vertebral body heights are maintained. Alignment is maintained. Mild degenerative disc disease at L1-L2 and T11-T12 with degenerative endplate spurring and mild loss of disc space height. Sacroiliac joint spaces are maintained without significant degenerative change. Right hip joint space is maintained without significant degenerative change. No acute fracture or dislocation. IVC filter tip terminates at the level of L2. Multiple calcified phleboliths in the pelvis. Few nonspecific calcifications in the soft tissues lateral to the hip, possibly reflective of areas of fat necrosis given some demonstrate central lucency
--- NOTE | ~2021-11-17 | XR_ITS ---
EXAMINATION: XR hip RT min 2V, XR lumbar spine 2-3V, XR sacroiliac joint 1-2V CLINICAL INFORMATION: Reason for Exam M54.41 - Lumbago with sciatica, right side COMPARISON: Left hip radiographs 08/17/2013 TECHNIQUE: 3 views of the lumbar spine, 3 views of the sacroiliac joints and 2 views of the right hip XR/XR sacroiliac joint 1-2V FINDINGS/IMPRESSION: 5 nonrib-bearing lumbar-type vertebral bodies. Vertebral body heights are maintained. Alignment is maintained. Mild degenerative disc disease at L1-L2 and T11-T12 with degenerative endplate spurring and mild loss of disc space height. Sacroiliac joint spaces are maintained without significant degenerative change. Right hip joint space is maintained without significant degenerative change. No acute fracture or dislocation. IVC filter tip terminates at the level of L2. Multiple calcified phleboliths in the pelvis. Few nonspecific calcifications in the soft tissues lateral to the hip, possibly reflective of areas of fat necrosis given some demonstrate central lucency
--- NOTE | ~2021-11-17 | XR_ITS ---
EXAMINATION: XR hip RT min 2V, XR lumbar spine 2-3V, XR sacroiliac joint 1-2V CLINICAL INFORMATION: Reason for Exam M54.41 - Lumbago with sciatica, right side COMPARISON: Left hip radiographs 08/17/2013 TECHNIQUE: 3 views of the lumbar spine, 3 views of the sacroiliac joints and 2 views of the right hip XR/XR lumbar spine 2-3V FINDINGS/IMPRESSION: 5 nonrib-bearing lumbar-type vertebral bodies. Vertebral body heights are maintained. Alignment is maintained. Mild degenerative disc disease at L1-L2 and T11-T12 with degenerative endplate spurring and mild loss of disc space height. Sacroiliac joint spaces are maintained without significant degenerative change. Right hip joint space is maintained without significant degenerative change. No acute fracture or dislocation. IVC filter tip terminates at the level of L2. Multiple calcified phleboliths in the pelvis. Few nonspecific calcifications in the soft tissues lateral to the hip, possibly reflective of areas of fat necrosis given some demonstrate central lucency
== END 2021-11-17 13:25 | disposition home or self-care (01) ==
LOC: HO.XRAY 13:24
PROVIDERS: PCP Internal Medicine; Visit Provider Internal Medicine
DX: M54.41 Lumbago with sciatica, right side (principal)
CPT/HCPCS: 72100; 72200; 73502

== ENCOUNTER → 2021-11-19 09:47 | Outpatient (BNVA) | payer OTHER, SELFPAY | PROVIDERS: PCP Internal Medicine; Visit Provider Internal Medicine | DX: I82.503 Chronic embolism and thrombosis of unspecified deep veins of lower extremity, bilateral (principal); Z51.81 Encounter for therapeutic drug level monitoring; Z79.01 Long term (current) use of anticoagulants | CPT/HCPCS: 85610; 99211 ==

== ENCOUNTER → 2021-12-10 10:38 | Outpatient (BNVA) | payer OTHER, SELFPAY | PROVIDERS: PCP Internal Medicine; Visit Provider Internal Medicine | DX: I82.503 Chronic embolism and thrombosis of unspecified deep veins of lower extremity, bilateral (principal); Z51.81 Encounter for therapeutic drug level monitoring; Z79.01 Long term (current) use of anticoagulants | CPT/HCPCS: 85610; 99211 ==

== ENCOUNTER 2021-12-24 09:38 | Outpatient (REF) | payer OTHER, SELFPAY ==
[2021-12-24 09:57] LABS: MANUAL DIFF FLAG NO
[2021-12-24 10:03] LABS: Basophils Percent Auto 0.6 % (0-2); Eosinophils Absolute Auto 0.1 X10*3/uL (0.0-0.4); Eosinophils Percent Auto 1.2 % (0-4); Hematocrit 36.3 % (37.0-47.0); Hemoglobin 11.7 g/dl (12.0-16.0); Imm Gran Abs Auto 0.01 X10*3/uL (0.00-0.03); Imm Gran Pct Auto 0.2 % (0.0-0.4); Lymphocytes Absolute Auto 2.4 X10*3/uL (1.2-4.9); Lymphocytes Percent Auto 36.8 % (20-40); Mean Corpuscular HGB Conc 32.2 g/dl (31.0-35.0); Mean Corpuscular Hemoglobin 27.4 pg (27.0-33.0); Mean Platelet Volume 10.3 fL (9.4-12.3); Monocytes Absolute Auto 0.5 X10*3/uL (0.1-1.2); Monocytes Percent Auto 8.2 % (2-11); Neutrophils Absolute Auto 3.4 x10*3/uL (2.0-8.3); Platelet Count 271 X10*3/uL (160-400); Red Blood Count 4.27 X10*6/uL (4.20-5.50); Red Cell Distribution Width 14.3 % (11.0-16.0); White Blood Count 6.5 X10*3/uL (4.8-10.8)
[2021-12-24 10:33] LABS: Alanine Aminotransferase 13 U/L (0-31); Albumin Level 4.1 g/dL (3.5-5.0); Alkaline Phosphatase 66 U/L (39-117); Anion Gap 12 (12-20); Aspartate Amino Transferase 23 U/L (5-31); Bilirubin Total 0.6 mg/dL (0.0-1.0); Blood Urea Nitrogen 16 mg/dL (9-16); Calcium 9.3 mg/dL (8.4-10.2); Carbon Dioxide 24 mmol/L (22-29); Chloride 109 mmol/L (96-108); Cholesterol 209 mg/dL; Estimated Glomerular Filt Rate > 60; Glucose Fasting 104 mg/dL (60-99); HDL Cholesterol 52 mg/dL; LDL Cholesterol Calculated 135 mg/dl; Potassium 4.1 mmol/L (3.3-5.1); Sodium 141 mmol/L (135-145); Total Protein 7.4 g/dL (6.5-8.0); Triglycerides 111 mg/dL
[2021-12-24 10:34] LABS: Appearance Urine HAZY; Color Urine YELLOW; Glucose Urine UA NEG (NEG); Leukocyte Esterase Urine NEG (NEG); Nitrite Urine NEG (NEG); PH 5.5 (5.0-8.0); Specific Gravity - Urine >= 1.030 (1.005-1.025); UACC Culture Trigger NO; Urine Blood 1+ (NEG); Urine Ketones NEG (NEG); Urine Protein NEG (NEG-TRACE)
[2021-12-24 10:44] LABS: Erythrocyte Sedimentation Rate 18 MM/HR (0-20)
[2021-12-24 10:56] LABS: TSH reflex Free T4 2.51 uIU/mL (0.32-4.0); Vitamin D 25-OH Total 27.9 ng/mL (>30)
[2021-12-24 11:15] LABS: Folate 17.1 ng/mL (> or = 4.0); Vitamin B12 336 pg/mL (200-900)
[2021-12-24 11:43] LABS: Mucus Urine 1+ /LPF; Other Crystals Urine 1+ /LPF; RBC Urine 0 /HPF (0); Squamous Epithelial Cell Urine 1+ /LPF; WBC Urine 0-2 /HPF (0-4)
== END 2021-12-24 09:39 | disposition home or self-care (01) ==
LOC: HO.LAB 09:38
PROVIDERS: PCP Internal Medicine; Visit Provider Internal Medicine
DX: Z00.00 Encounter for general adult medical examination without abnormal findings (principal); I82.503 Chronic embolism and thrombosis of unspecified deep veins of lower extremity, bilateral; Z51.81 Encounter for therapeutic drug level monitoring; Z79.01 Long term (current) use of anticoagulants; M79.7 Fibromyalgia; E78.00 Pure hypercholesterolemia, unspecified; E55.9 Vitamin D deficiency, unspecified; E53.8 Deficiency of other specified B group vitamins
CPT/HCPCS: 36415; 80053; 80061; 81001; 82306; 82607; 82746; 84443; 85025; 85610; 85652; 99211

== ENCOUNTER → 2022-01-15 09:03 | Outpatient (BNVA) | payer OTHER, SELFPAY | PROVIDERS: PCP Internal Medicine; Visit Provider Internal Medicine | DX: I82.503 Chronic embolism and thrombosis of unspecified deep veins of lower extremity, bilateral (principal); Z51.81 Encounter for therapeutic drug level monitoring; Z79.01 Long term (current) use of anticoagulants | CPT/HCPCS: 85610; 99211 ==

== ENCOUNTER → 2022-01-18 14:36 | Outpatient (BNVA) | payer OTHER, SELFPAY | PROVIDERS: PCP Internal Medicine; Visit Provider Internal Medicine | DX: I82.503 Chronic embolism and thrombosis of unspecified deep veins of lower extremity, bilateral (principal); Z51.81 Encounter for therapeutic drug level monitoring; Z79.01 Long term (current) use of anticoagulants | CPT/HCPCS: 85610; 99211 ==

== ENCOUNTER → 2022-01-21 09:21 | Outpatient (BNVA) | payer OTHER, SELFPAY | PROVIDERS: PCP Internal Medicine; Visit Provider Internal Medicine | DX: I82.503 Chronic embolism and thrombosis of unspecified deep veins of lower extremity, bilateral (principal); Z51.81 Encounter for therapeutic drug level monitoring; Z79.01 Long term (current) use of anticoagulants | CPT/HCPCS: 85610; 99211 ==

== ENCOUNTER → 2022-02-04 09:56 | Outpatient (BNVA) | payer OTHER, SELFPAY | PROVIDERS: PCP Internal Medicine; Visit Provider Internal Medicine | DX: I82.503 Chronic embolism and thrombosis of unspecified deep veins of lower extremity, bilateral (principal); Z51.81 Encounter for therapeutic drug level monitoring; Z79.01 Long term (current) use of anticoagulants | CPT/HCPCS: 85610; 99211 ==

== ENCOUNTER → 2022-02-18 09:29 | Outpatient (BNVA) | payer OTHER, SELFPAY | PROVIDERS: PCP Internal Medicine; Visit Provider Internal Medicine | DX: I82.503 Chronic embolism and thrombosis of unspecified deep veins of lower extremity, bilateral (principal); Z51.81 Encounter for therapeutic drug level monitoring; Z79.01 Long term (current) use of anticoagulants | CPT/HCPCS: 85610; 99211 ==

== ENCOUNTER → 2022-03-03 09:39 | Outpatient (BNVA) | payer OTHER, SELFPAY | PROVIDERS: PCP Internal Medicine; Visit Provider Internal Medicine | DX: I82.503 Chronic embolism and thrombosis of unspecified deep veins of lower extremity, bilateral (principal); Z79.01 Long term (current) use of anticoagulants; Z51.81 Encounter for therapeutic drug level monitoring | CPT/HCPCS: 85610; 99211 ==

== ENCOUNTER → 2022-03-17 | Outpatient (BNVA) | payer OTHER, SELFPAY | PROVIDERS: PCP Internal Medicine; Visit Provider Internal Medicine | DX: I82.503 Chronic embolism and thrombosis of unspecified deep veins of lower extremity, bilateral (principal); Z79.01 Long term (current) use of anticoagulants; Z51.81 Encounter for therapeutic drug level monitoring | CPT/HCPCS: 85610; 99211 ==

== ENCOUNTER → 2022-04-07 09:29 | Outpatient (BNVA) | payer OTHER, SELFPAY | PROVIDERS: PCP Internal Medicine; Visit Provider Internal Medicine | DX: I82.403 Acute embolism and thrombosis of unspecified deep veins of lower extremity, bilateral (principal); Z79.01 Long term (current) use of anticoagulants; Z51.81 Encounter for therapeutic drug level monitoring | CPT/HCPCS: 85610; 99211 ==

== ENCOUNTER 2022-04-26 11:17 | Outpatient (REF) | payer OTHER, SELFPAY ==
--- NOTE | ~2022-04-26 | XR_ITS ---
EXAMINATION: XR KNEE, RIGHT CLINICAL INFORMATION: Pain. COMPARISON: None TECHNIQUE: Four views of the right knee. FINDINGS: There is mild loss of tricompartment joint space with periarticular spurring. No abnormal joint effusion seen. There are no loose bodies. No bony erosive changes. The soft tissues are normal. XR/XR knee RT 3V IMPRESSION: Mild degenerative changes in the tricompartment. No visible acute fracture, loose bodies or joint effusion.
== END 2022-04-26 11:18 | disposition home or self-care (01) ==
LOC: HO.XRAY 11:17
PROVIDERS: PCP Internal Medicine; Visit Provider Internal Medicine
DX: M25.561 Pain in right knee (principal); M25.461 Effusion, right knee
CPT/HCPCS: 73562

== ENCOUNTER 2022-04-27 13:32 | Outpatient (REF) | payer OTHER, SELFPAY ==
--- NOTE | ~2022-04-27 | US_ITS ---
EXAMINATION: US VENOUS ULTRASOUND WITH DOPPLER LOWER EXTREMITY, RIGHT CLINICAL INFORMATION: History of DVT. Right leg pain. COMPARISON: None TECHNIQUE: Ultrasound of the deep veins is performed from the hip to the calf with compression sonography and color and pulse Doppler assessment. Spectral analysis with color-flow imaging is performed. FINDINGS: There is normal venous compression and respiratory variation and augmented flow. The visualized common femoral vein, superficial femoral vein, profunda femoral vein, popliteal vein, and the trifurcation region shows no evidence of deep venous thrombosis. There is no significant popliteal fossa cyst. If the patient's symptoms persist, followup ultrasound in 5 days 7 days might be of value to exclude proximal propagation from a non-visualized calf vein. US/US venous duplex LE RT IMPRESSION: No DVT demonstrated in the right lower extremity.
== END 2022-04-27 13:33 | disposition home or self-care (01) ==
LOC: HO.US 13:32
PROVIDERS: PCP Internal Medicine; Visit Provider Internal Medicine
DX: I82.503 Chronic embolism and thrombosis of unspecified deep veins of lower extremity, bilateral (principal); M79.661 Pain in right lower leg; M79.89 Other specified soft tissue disorders; Z51.81 Encounter for therapeutic drug level monitoring; Z79.01 Long term (current) use of anticoagulants
CPT/HCPCS: 85610; 93971; 99211

== ENCOUNTER → 2022-05-05 09:32 | Outpatient (BNVA) | payer OTHER, SELFPAY | PROVIDERS: PCP Internal Medicine; Visit Provider Internal Medicine | DX: J45.41 Moderate persistent asthma with (acute) exacerbation (principal); E66.01 Morbid (severe) obesity due to excess calories; Z68.41 Body mass index [BMI] 40.0-44.9, adult; G47.33 Obstructive sleep apnea (adult) (pediatric); Z79.899 Other long term (current) drug therapy; I82.503 Chronic embolism and thrombosis of unspecified deep veins of lower extremity, bilateral; Z51.81 Encounter for therapeutic drug level monitoring; Z79.01 Long term (current) use of anticoagulants | CPT/HCPCS: 85610; 99211; 99212 ==

== ENCOUNTER → 2022-05-19 10:44 | Outpatient (BNVA) | payer OTHER, SELFPAY | PROVIDERS: PCP Internal Medicine; Visit Provider Internal Medicine | DX: I82.503 Chronic embolism and thrombosis of unspecified deep veins of lower extremity, bilateral (principal); Z79.01 Long term (current) use of anticoagulants; Z51.81 Encounter for therapeutic drug level monitoring | CPT/HCPCS: 85610 ==

== ENCOUNTER → 2022-06-09 09:31 | Outpatient (BNVA) | payer OTHER, SELFPAY | PROVIDERS: PCP Internal Medicine; Visit Provider Internal Medicine | DX: J45.41 Moderate persistent asthma with (acute) exacerbation (principal); E66.01 Morbid (severe) obesity due to excess calories; G47.33 Obstructive sleep apnea (adult) (pediatric); I82.503 Chronic embolism and thrombosis of unspecified deep veins of lower extremity, bilateral; Z51.81 Encounter for therapeutic drug level monitoring; Z79.01 Long term (current) use of anticoagulants; Z68.41 Body mass index [BMI] 40.0-44.9, adult | CPT/HCPCS: 85610; 99211; 99212 ==

== ENCOUNTER → 2022-06-23 10:38 | Outpatient (BNVA) | payer OTHER, SELFPAY | PROVIDERS: PCP Internal Medicine; Visit Provider Internal Medicine | DX: I82.503 Chronic embolism and thrombosis of unspecified deep veins of lower extremity, bilateral (principal); Z79.01 Long term (current) use of anticoagulants; Z51.81 Encounter for therapeutic drug level monitoring | CPT/HCPCS: 85610; 99211 ==

== ENCOUNTER → 2022-07-02 10:32 | Outpatient (BNVA) | payer OTHER, SELFPAY | PROVIDERS: PCP Internal Medicine; Visit Provider Internal Medicine | DX: I82.403 Acute embolism and thrombosis of unspecified deep veins of lower extremity, bilateral (principal); Z79.01 Long term (current) use of anticoagulants; Z51.81 Encounter for therapeutic drug level monitoring | CPT/HCPCS: 85610; 99211 ==

== ENCOUNTER 2022-07-16 10:56 | Outpatient (REF) | payer OTHER, SELFPAY ==
[2022-07-16 12:00] LABS: Prothrombin Time 65.2 SEC (10.0-13.1)
[2022-07-16 12:01] LABS: INTERNATIONAL NORM RATIO 5.3 (0.9-1.1)
== END 2022-07-16 10:57 | disposition home or self-care (01) ==
LOC: HO.LAB 10:56
PROVIDERS: Visit Provider Internal Medicine
DX: I82.503 Chronic embolism and thrombosis of unspecified deep veins of lower extremity, bilateral (principal); Z51.81 Encounter for therapeutic drug level monitoring; Z79.01 Long term (current) use of anticoagulants
CPT/HCPCS: 36415; 85610; 99212

== ENCOUNTER → 2022-07-20 10:15 | Outpatient (BNVA) | payer OTHER, SELFPAY | PROVIDERS: PCP Internal Medicine; Visit Provider Internal Medicine | DX: I82.503 Chronic embolism and thrombosis of unspecified deep veins of lower extremity, bilateral (principal); Z51.81 Encounter for therapeutic drug level monitoring; Z79.01 Long term (current) use of anticoagulants | CPT/HCPCS: 85610; 99211 ==

== ENCOUNTER 2022-08-03 09:47 | Outpatient (REF) | payer OTHER, SELFPAY ==
[2022-08-03 10:01] LABS: MANUAL DIFF FLAG NO
[2022-08-03 10:33] LABS: Appearance Urine Clear; Color Urine Yellow; Glucose Urine UA Negative (Negative); Leukocyte Esterase Urine Negative (Negative); Nitrite Urine Negative (Negative); PH 5.5 (5.0-9.0); Specific Gravity - Urine >= 1.030 (1.005-1.025); Urine Blood Small (1+) (Negative); Urine Ketones Negative (Negative); Urine Protein Trace mg/dL (Neg-Trace)
[2022-08-03 10:35] LABS: UMIC TRIGGER UACC YES
[2022-08-03 10:45] LABS: Basophils Percent Auto 0.6 % (0-2); Eosinophils Absolute Auto 0.1 X10*3/uL (0.0-0.4); Hematocrit 37.8 % (37.0-47.0); Hemoglobin 12.2 g/dl (12.0-16.0); Imm Gran Abs Auto 0.02 X10*3/uL (0.00-0.03); Imm Gran Pct Auto 0.3 % (0.0-0.4); Lymphocytes Absolute Auto 2.4 X10*3/uL (1.2-4.9); Lymphocytes Percent Auto 33.7 % (20-40); Mean Corpuscular HGB Conc 32.3 g/dl (31.0-35.0); Mean Corpuscular Hemoglobin 27.2 pg (27.0-33.0); Mean Corpuscular Volume 84.4 fL (80.0-98.0); Monocytes Absolute Auto 0.6 X10*3/uL (0.1-1.2); Monocytes Percent Auto 8.8 % (2-11); Neutrophils Absolute Auto 3.9 x10*3/uL (2.0-8.3); Neutrophils Percent Auto 55.6 % (45-73); Platelet Count 281 X10*3/uL (160-400); Red Blood Count 4.48 X10*6/uL (4.20-5.50); Red Cell Distribution Width 14.6 % (11.0-16.0); White Blood Count 7.1 X10*3/uL (4.8-10.8)
[2022-08-03 10:52] LABS: Bacteria Urine Trace (None Seen); WBC Urine 0-5 /HPF (0-5)
[2022-08-03 10:53] LABS: Hyaline Casts Urine 0-2 /LPF (0-2)
[2022-08-03 11:21] LABS: Alanine Aminotransferase 15 U/L (0-31); Albumin Level 4.2 g/dL (3.5-5.0); Alkaline Phosphatase 66 U/L (39-117); Anion Gap 17 (12-20); Aspartate Amino Transferase 23 U/L (5-31); Bilirubin Total 0.7 mg/dL (0.0-1.0); Blood Urea Nitrogen 23 mg/dL (9-16); Calcium 9.2 mg/dL (8.4-10.2); Carbon Dioxide 20 mmol/L (22-29); Chloride 107 mmol/L (96-108); Cholesterol 212 mg/dL; Estimated Glomerular Filt Rate 52; Glucose Fasting 107 mg/dL (60-99); HDL Cholesterol 50 mg/dL; LDL Cholesterol Calculated 138 mg/dl; Potassium 4.7 mmol/L (3.3-5.1); Sodium 139 mmol/L (135-145); Total Protein 7.8 g/dL (6.5-8.0); Triglycerides 122 mg/dL
[2022-08-03 11:30] LABS: TSH reflex Free T4 3.18 uIU/mL (0.32-4.0); Vitamin D 25-OH Total 25.9 ng/mL (>30)
[2022-08-03 11:51] LABS: Vitamin B12 257 pg/mL (200-900)
== END 2022-08-03 09:48 | disposition home or self-care (01) ==
LOC: HO.LAB 09:47
PROVIDERS: PCP Internal Medicine; Visit Provider Internal Medicine
DX: I82.503 Chronic embolism and thrombosis of unspecified deep veins of lower extremity, bilateral (principal); E78.00 Pure hypercholesterolemia, unspecified; I10 Essential (primary) hypertension; E53.8 Deficiency of other specified B group vitamins; E55.9 Vitamin D deficiency, unspecified; Z51.81 Encounter for therapeutic drug level monitoring; Z79.01 Long term (current) use of anticoagulants
CPT/HCPCS: 36415; 80053; 80061; 81001; 82306; 82607; 82746; 84443; 85025; 85610; 99211

== ENCOUNTER → 2022-08-24 10:30 | Outpatient (BNVA) | payer OTHER, SELFPAY | PROVIDERS: PCP Internal Medicine; Visit Provider Internal Medicine | DX: J45.41 Moderate persistent asthma with (acute) exacerbation (principal); G47.33 Obstructive sleep apnea (adult) (pediatric); E66.9 Obesity, unspecified; Z68.41 Body mass index [BMI] 40.0-44.9, adult; I82.503 Chronic embolism and thrombosis of unspecified deep veins of lower extremity, bilateral; Z79.01 Long term (current) use of anticoagulants; Z51.81 Encounter for therapeutic drug level monitoring | CPT/HCPCS: 85610; 99211; 99212 ==

== ENCOUNTER → 2022-09-08 10:41 | Outpatient (BNVA) | payer OTHER, SELFPAY | PROVIDERS: PCP Internal Medicine; Visit Provider Internal Medicine | DX: I82.503 Chronic embolism and thrombosis of unspecified deep veins of lower extremity, bilateral (principal); Z79.01 Long term (current) use of anticoagulants; Z51.81 Encounter for therapeutic drug level monitoring | CPT/HCPCS: 85610; 99211 ==

== ENCOUNTER → 2022-09-14 10:38 | Outpatient (BNVA) | payer OTHER, SELFPAY | PROVIDERS: PCP Internal Medicine; Visit Provider Internal Medicine | DX: I82.503 Chronic embolism and thrombosis of unspecified deep veins of lower extremity, bilateral (principal); Z79.01 Long term (current) use of anticoagulants; Z51.81 Encounter for therapeutic drug level monitoring | CPT/HCPCS: 85610; 99211 ==

== ENCOUNTER → 2022-09-22 09:57 | Outpatient (BNVA) | payer OTHER, SELFPAY | PROVIDERS: PCP Internal Medicine; Visit Provider Internal Medicine | DX: I82.503 Chronic embolism and thrombosis of unspecified deep veins of lower extremity, bilateral (principal); Z79.01 Long term (current) use of anticoagulants; Z51.81 Encounter for therapeutic drug level monitoring | CPT/HCPCS: 85610; 99211 ==

== ENCOUNTER → 2022-10-11 09:39 | Outpatient (BNVA) | payer OTHER, SELFPAY | PROVIDERS: PCP Internal Medicine; Visit Provider Internal Medicine | DX: I82.503 Chronic embolism and thrombosis of unspecified deep veins of lower extremity, bilateral (principal); Z79.01 Long term (current) use of anticoagulants; Z51.81 Encounter for therapeutic drug level monitoring | CPT/HCPCS: 85610; 99211 ==

== ENCOUNTER → 2022-10-25 10:31 | Outpatient (BNVA) | payer OTHER, SELFPAY | PROVIDERS: PCP Internal Medicine; Visit Provider Internal Medicine | DX: I82.503 Chronic embolism and thrombosis of unspecified deep veins of lower extremity, bilateral (principal); Z79.01 Long term (current) use of anticoagulants; Z51.81 Encounter for therapeutic drug level monitoring | CPT/HCPCS: 85610; 99211 ==

== ENCOUNTER → 2022-10-27 09:36 | Outpatient (BNVA) | payer OTHER, SELFPAY | PROVIDERS: PCP Internal Medicine; Visit Provider Internal Medicine | DX: I82.503 Chronic embolism and thrombosis of unspecified deep veins of lower extremity, bilateral (principal); Z79.01 Long term (current) use of anticoagulants; Z51.81 Encounter for therapeutic drug level monitoring | CPT/HCPCS: 85610; 99211 ==

== ENCOUNTER → 2022-11-03 09:33 | Outpatient (BNVA) | payer OTHER, SELFPAY | PROVIDERS: PCP Internal Medicine; Visit Provider Internal Medicine | DX: I82.503 Chronic embolism and thrombosis of unspecified deep veins of lower extremity, bilateral (principal); Z79.01 Long term (current) use of anticoagulants; Z51.81 Encounter for therapeutic drug level monitoring | CPT/HCPCS: 85610; 99211 ==

== ENCOUNTER → 2022-11-10 09:36 | Outpatient (BNV) | payer OTHER, SELFPAY | PROVIDERS: PCP Internal Medicine; Referring Provider Internal Medicine; Visit Provider Internal Medicine | DX: Z86.718 Personal history of other venous thrombosis and embolism (principal); Z79.01 Long term (current) use of anticoagulants | CPT/HCPCS: 99204; 99213; 99214 ==

== ENCOUNTER → 2022-11-17 10:15 | Outpatient (BNVA) | payer OTHER, SELFPAY | PROVIDERS: PCP Internal Medicine; Visit Provider Internal Medicine | DX: I82.503 Chronic embolism and thrombosis of unspecified deep veins of lower extremity, bilateral (principal); Z79.01 Long term (current) use of anticoagulants; Z51.81 Encounter for therapeutic drug level monitoring | CPT/HCPCS: 85610; 99212 ==

== ENCOUNTER 2022-12-23 08:47 | Outpatient (REF) | payer OTHER, SELFPAY ==
[2022-12-23 09:01] LABS: MANUAL DIFF FLAG NO
[2022-12-23 09:28] LABS: Appearance Urine Cloudy; Color Urine Yellow; Glucose Urine UA Negative (Negative); Leukocyte Esterase Urine Negative (Negative); Nitrite Urine Negative (Negative); Specific Gravity - Urine 1.025 (1.005-1.025); Urine Blood Negative (Negative); Urine Ketones Negative (Negative); Urine Protein Negative (Neg-Trace)
[2022-12-23 09:41] LABS: Basophils Absolute Auto 0.1 X10*3/uL (0.0-0.2); Basophils Percent Auto 0.8 % (0-2); Eosinophils Absolute Auto 0.1 X10*3/uL (0.0-0.4); Eosinophils Percent Auto 0.9 % (0-4); Hematocrit 36.3 % (37.0-47.0); Hemoglobin 11.5 g/dl (12.0-16.0); Imm Gran Abs Auto 0.01 X10*3/uL (0.00-0.03); Imm Gran Pct Auto 0.2 % (0.0-0.4); Lymphocytes Absolute Auto 2.5 X10*3/uL (1.2-4.9); Mean Corpuscular HGB Conc 31.7 g/dl (31.0-35.0); Mean Corpuscular Hemoglobin 26.9 pg (27.0-33.0); Mean Platelet Volume 10.8 fL (9.4-12.3); Monocytes Absolute Auto 0.6 X10*3/uL (0.1-1.2); Monocytes Percent Auto 8.9 % (2-11); Neutrophils Absolute Auto 3.3 x10*3/uL (2.0-8.3); Neutrophils Percent Auto 50.2 % (45-73); Platelet Count 285 X10*3/uL (160-400); Red Blood Count 4.27 X10*6/uL (4.20-5.50); Red Cell Distribution Width 14.8 % (11.0-16.0); White Blood Count 6.5 X10*3/uL (4.8-10.8)
[2022-12-23 09:58] LABS: Alanine Aminotransferase 16 U/L (0-31); Albumin Level 4.1 g/dL (3.5-5.0); Alkaline Phosphatase 74 U/L (39-117); Anion Gap 9 (12-20); Aspartate Amino Transferase 19 U/L (5-31); Bilirubin Total 0.6 mg/dL (0.0-1.0); Blood Urea Nitrogen 13 mg/dL (9-16); Calcium 9.2 mg/dL (8.4-10.2); Carbon Dioxide 25 mmol/L (22-29); Chloride 109 mmol/L (96-108); Cholesterol 191 mg/dL; Estimated Glomerular Filt Rate > 60; Glucose Fasting 96 mg/dL (60-99); HDL Cholesterol 46 mg/dL; LDL Cholesterol Calculated 122 mg/dl; Potassium 4.1 mmol/L (3.3-5.1); Sodium 139 mmol/L (135-145); Triglycerides 116 mg/dL
[2022-12-23 10:16] LABS: TSH reflex Free T4 4.26 uIU/mL (0.32-4.0); Vitamin D 25-OH Total 18.4 ng/mL (>30)
[2022-12-23 11:11] LABS: Free T4 (Free Thyroxine) 0.88 ng/dL (0.71-1.85)
== END 2022-12-23 08:48 | disposition home or self-care (01) ==
LOC: HO.LAB 08:47
PROVIDERS: PCP Internal Medicine; Visit Provider Internal Medicine
DX: E78.00 Pure hypercholesterolemia, unspecified (principal); R30.0 Dysuria; E55.9 Vitamin D deficiency, unspecified; I10 Essential (primary) hypertension
CPT/HCPCS: 36415; 80053; 80061; 81003; 82306; 84439; 84443; 85025

== ENCOUNTER 2023-01-13 15:12 | Outpatient (REF) | payer OTHER, SELFPAY ==
--- NOTE | ~2023-01-13 | MM_ITS ---
EXAMINATION: MM SCREENING DIGITAL BREAST TOMOSYNTHESIS, BILATERAL CLINICAL INFORMATION: Screening. Asymptomatic. The lifetime risk of breast cancer based on the Tyrer-Cuzick Model is 4%. COMPARISON: Mammography: 12/26/2020, 10/31/2018, 12/13/2016 TECHNIQUE: Digital breast tomosynthesis is performed in both the craniocaudal and mediolateral oblique views along with computer-aided detection (CAD). Synthesized 2D images are generated from the tomosynthesis. FINDINGS: There are scattered areas of fibroglandular density (ACR BI-RADS breast composition Category b). There are no significant masses, abnormal calcifications, or other abnormalities. Parenchymal pattern is similar to prior studies. There is no developing density or architectural abnormality. The axilla and skin contours are unremarkable. No significant changes. MM/MM tomosynthesis screening BI IMPRESSION: No mammographic evidence of malignancy. ASSESSMENT: BI-RADS 1: Negative RECOMMENDATION: Routine annual mammography screening. This patient's information was entered into a reminder system with a target due date for their next mammogram.
== END 2023-01-13 15:13 | disposition home or self-care (01) ==
LOC: HO.MAMMO 15:12
PROVIDERS: Visit Provider Internal Medicine
DX: Z12.31 Encounter for screening mammogram for malignant neoplasm of breast (principal)
CPT/HCPCS: 77063; 77067

== ENCOUNTER → 2023-01-20 12:42 | Outpatient (BNVA) | payer OTHER, SELFPAY | PROVIDERS: PCP Internal Medicine; Visit Provider Nurse Practitioner Family | DX: G47.33 Obstructive sleep apnea (adult) (pediatric) (principal); R06.83 Snoring; R40.0 Somnolence; R53.83 Other fatigue; E66.01 Morbid (severe) obesity due to excess calories; E53.8 Deficiency of other specified B group vitamins; E55.9 Vitamin D deficiency, unspecified; Z68.41 Body mass index [BMI] 40.0-44.9, adult; Z99.89 Dependence on other enabling machines and devices; Z91.14 Patient's other noncompliance with medication regimen | CPT/HCPCS: 99212 ==

== ENCOUNTER 2023-05-05 08:52 | Outpatient (REF) | payer OTHER, SELFPAY ==
[2023-05-05 09:04] LABS: MANUAL DIFF FLAG NO
[2023-05-05 09:30] LABS: Basophils Percent Auto 0.6 % (0-2); Eosinophils Absolute Auto 0.1 X10*3/uL (0.0-0.4); Eosinophils Percent Auto 0.8 % (0-4); Hemoglobin 12.1 g/dl (12.0-16.0); Imm Gran Abs Auto 0.01 X10*3/uL (0.00-0.03); Imm Gran Pct Auto 0.2 % (0.0-0.4); Lymphocytes Absolute Auto 2.6 X10*3/uL (1.2-4.9); Lymphocytes Percent Auto 40.2 % (20-40); Mean Corpuscular HGB Conc 32.7 g/dl (31.0-35.0); Mean Corpuscular Hemoglobin 27.2 pg (27.0-33.0); Mean Corpuscular Volume 83.1 fL (80.0-98.0); Mean Platelet Volume 10.8 fL (9.4-12.3); Monocytes Absolute Auto 0.6 X10*3/uL (0.1-1.2); Monocytes Percent Auto 9.2 % (2-11); Neutrophils Absolute Auto 3.2 x10*3/uL (2.0-8.3); Platelet Count 255 X10*3/uL (160-400); Red Blood Count 4.45 X10*6/uL (4.20-5.50); Red Cell Distribution Width 14.7 % (11.0-16.0); White Blood Count 6.4 X10*3/uL (4.8-10.8)
[2023-05-05 10:53] LABS: Appearance Urine Cloudy; Color Urine Yellow; Glucose Urine UA Negative (Negative); Leukocyte Esterase Urine Moderate (2+) (Negative); Nitrite Urine Negative (Negative); PH 5.5 (5.0-9.0); Specific Gravity - Urine >= 1.030 (1.005-1.025); UMIC TRIGGER UACC YES; Urine Blood Trace (Negative); Urine Ketones Trace mg/dL (Negative); Urine Protein Trace mg/dL (Neg-Trace)
[2023-05-05 10:56] LABS: Bacteria Urine 2+ (None Seen); Squamous Epithelial Cell Urine >20 /HPF (0-2); UACC Culture Trigger YES; WBC Urine >50 /HPF (0-5)
[2023-05-05 11:09] LABS: Alanine Aminotransferase 11 U/L (0-31); Albumin Level 4.1 g/dL (3.5-5.0); Alkaline Phosphatase 71 U/L (39-117); Anion Gap 15 (12-20); Aspartate Amino Transferase 19 U/L (5-31); Bilirubin Total 0.8 mg/dL (0.0-1.0); Blood Urea Nitrogen 21 mg/dL (9-16); Calcium 9.2 mg/dL (8.4-10.2); Carbon Dioxide 21 mmol/L (22-29); Chloride 109 mmol/L (96-108); Cholesterol 179 mg/dL; Estimated Glomerular Filt Rate > 60; Glucose Fasting 104 mg/dL (60-99); HDL Cholesterol 48 mg/dL; LDL Cholesterol Calculated 113 mg/dl; Potassium 3.9 mmol/L (3.3-5.1); Sodium 141 mmol/L (135-145); TSH reflex Free T4 3.62 uIU/mL (0.32-4.0); Total Protein 7.5 g/dL (6.5-8.0); Triglycerides 93 mg/dL; Vitamin D 25-OH Total 22.4 ng/mL (>30)
== END 2023-05-05 08:53 | disposition home or self-care (01) ==
LOC: HO.LAB 08:52
PROVIDERS: PCP Internal Medicine; Visit Provider Internal Medicine
DX: E78.00 Pure hypercholesterolemia, unspecified (principal); E55.9 Vitamin D deficiency, unspecified; I10 Essential (primary) hypertension
CPT/HCPCS: 36415; 80053; 80061; 81001; 82306; 84443; 85025; 87086

== ENCOUNTER 2023-06-08 08:45 | Outpatient (AMB) | payer OTHER, SELFPAY ==
[2023-06-08 08:50] VITALS: BMI 39.1
--- NOTE | 2023-06-08 08:50 | MHC.OFFVIS ---
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 Fregoso a few years ago. States that her right wrist symptoms have gradually recurred over the years and is now getting worse and she can hardly use her right hand to do anything nowadays. Denies any recent injury or trauma to her wrist / hand Has also been experiencing some stiffness and pain on her left ring finger for about 1 year. Reports that she has a hard time getting the finger fully extended at times and she has to physically help her finger along with her other hand to get it to straighten out. No recent EMG. 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 She states she has worsening right wrist pain which radiates down to her palm. Her pain is aggravated with mixing the rice and in the mornings. The pain makes her unable to use her right hand. She denies sustaining any recent injury or trauma on her wrist. She does not wear a wrist brace for her pain. She has not had any recent EMG done. She has a history of right CTR and median nerve release done by Dr. Fregoso a few years ago. [facility] Medical History Anxiety Asthma Chronic low back pain Condyloma acuminata Cough COVID-19 DDD (degenerative disc disease) Depression DVT (deep venous thrombosis) Exertional dyspnea Fatigue Fibromyalgia Hyperthyroidism Insomnia Lumbar degenerative disc disease Lung granuloma Morbid obesity with BMI of 40.0-44.9, adult Neuropathy Obesity (BMI 30-39.9) Obstructive sleep apnea Obstructive sleep apnea Phlegmasia cerulea dolens Phlegmasia cerulea dolens Pure hypercholesterolemia Vitamin B12 deficiency Vitamin D deficiency Surgical History Benign neoplasm of neck History of bilateral oophorectomy History of bilateral tubal ligation History of carpal tunnel release History of colonoscopy History of embolectomy S/P IVC filter Family History Father Liver cirrhosis Cancer Mother Heart attack Coronary artery disease Asthma Diabetes mellitus Brother No problems noted. Sister No problems noted. Sister No problems noted. Sister No problems noted. Sister No problems noted. Sister No problems noted. Sister No problems noted. Sister No problems noted. Sister No problems noted. Sister No problems noted. Sister No problems noted. Sister No problems noted. Sister No problems noted. Sister No problems noted. Paternal Aunt Colon cancer Son Histiocytosis Son No problems noted. Son No problems noted. Social History (Updated 06/08/23 @ 09:02 by AMBREEN Lu) Household Members: Family Housing: Apartment Alcohol intake: never Patient Tobacco Use Status: Never used Tobacco e-Cigarette/Vaping Use: Never Used Second Hand Smoke Exposure: No service: No Current occupational status: disabled Current occupation: right hand Cognitive needs: Yes (cane) Hearing needs: No Vision needs: Yes Review of Systems Const All systems reviewed & are unremarkable except as noted in HPI and below Physical Exam Vital Signs: BMI result Body Mass Index 39.1 Const General: cooperative, healthy appearing, comfortable, no acute distress, well developed and alert Orientation/consciousness: patient oriented x3 HEENT Head: Yes normal to inspection, Yes normocephalic and Yes atraumatic Eyes General: appearance normal, both eyes and all related structures Resp Effort & Inspection: normal respiratory effort and able to speak in complete sentences Cardio Rate: regular rate Peripheral pulses: Peripheral pulses 2+ throughout GI Palpation (GI): Soft to palpation Skin Lesions: no lesions Rashes: no rashes Neuro General: patient oriented x3 Extrem Other: Right wrist: Normal to inspection. Tenderness over the carpal canal. Numbness and tingling over the median nerve distribution of the right hand. Able to make a full fist and fully extend all fingers. Positive Tinel's. Assessment & Plan Assessment & Plan (1) Carpal tunnel syndrome of right wrist: Code(s): G56.01 - Carpal tunnel syndrome, right upper limb Plan An EMG study has been ordered of the RUE in the office today. She was also given an off the shelf comfort wrist splint to wear at night and activities like lifting. Once the study is complete, she will see us back for further recommendations. Orders: Orders NE electromyogram (EMG) Today R20.0 - Anesthesia of skin, R20.2 - Paresthesia of skin NE nerve conduction velocity Today R20.0 - Anesthesia of skin, R20.2 - Paresthesia of skin Patient Instructions: Scribed for Renea Jalloh PA-C, by Jesus Garcia medical claims specialist, on 06/08/2023 at 9:00 AM EST. I, Renea Jalloh PA-C, have personally reviewed and agree with the information entered by the scribe. Coding Level of Care Code New Pt Level 3 (38038) Diagnoses Carpal tunnel syndrome of right wrist G56.01
== END 2023-06-08 09:26 | disposition home or self-care (01) ==
PROVIDERS: PCP Internal Medicine; Visit Provider Physician Assistant
DX: G56.01 Carpal tunnel syndrome, right upper limb (principal)
CPT/HCPCS: 99203

== ENCOUNTER → 2023-06-08 08:45 | Outpatient (BNVA) | payer OTHER, SELFPAY | PROVIDERS: PCP Internal Medicine; Visit Provider Physician Assistant | DX: G56.01 Carpal tunnel syndrome, right upper limb (principal) | CPT/HCPCS: 99202 ==

== ENCOUNTER 2023-06-15 09:11 | Outpatient (REF) | payer OTHER, SELFPAY ==
[2023-06-21 21:14] LABS: HPV mRNA E6/E7 rflx Not Detected (Not Detected)
== END 2023-06-15 09:12 | disposition home or self-care (01) ==
LOC: HO.LNP 09:11
PROVIDERS: PCP Internal Medicine; Visit Provider Advanced Practice Midwife
DX: Z01.419 Encounter for gynecological examination (general) (routine) without abnormal findings (principal); A63.0 Anogenital (venereal) warts
CPT/HCPCS: 87624; 88142

== ENCOUNTER 2023-06-15 09:11 | Outpatient (AMB) | payer OTHER, SELFPAY ==
--- NOTE | 2023-06-15 09:13 | A.OFFVIS_ITS ---
Intake Vital Signs 06/15/23 09:16 Height 5 ft 5 in Weight 234 lb BMI 38.9 BP 120/82 Intake Visit Reasons: Annual/lao 30 mins Intake Note: The patient agreed to use of a medical assistant supervisor during this encounter. Scribed for SID Erwin by Luci Foy medical assistant supervisor, on 06/15/2023 at 9:45 am EST. Applique Sewer Required: Yes Applique Sewer Language: Police Justice Name: Bhumi GRANT Information Interpreted: non-clinical & clinical Closet Builder: Closet Builder Present (Bhumi) Allergies No Known Allergies Allergy (Verified 06/15/23 09:14) HPI HPI Comments History of Present Illness Details She is a new patient, postmenopausal woman presenting for annual exam. Patient admits she tries to eat a healthy diet including Vitamin D. She tries to stay active. Currently not sexually active. Denies vaginal itching and irritation. Complains of skin tags treated in the past. EcW review: Dr. Elizondo Rx the Condyloma acuminata 05/03/2019, by [facility] due to the large size, and his note remarks that she had prior treatment with a [employer]. STD screening offered; she declines. Denies family hx of breast and ovarian cancer. Last pap smear 09/15/16. Last mammogram 01/13/23. UTD on colonoscopy. [facility] Medical History Anxiety Asthma Chronic low back pain Condyloma acuminata Cough COVID-19 DDD (degenerative disc disease) Depression DVT (deep venous thrombosis) Exertional dyspnea Fatigue Fibromyalgia Hyperthyroidism Insomnia Lumbar degenerative disc disease Lung granuloma Morbid obesity with BMI of 40.0-44.9, adult Neuropathy Obesity (BMI 30-39.9) Obstructive sleep apnea Obstructive sleep apnea Phlegmasia cerulea dolens Phlegmasia cerulea dolens Pure hypercholesterolemia Vitamin B12 deficiency Vitamin D deficiency Surgical History Benign neoplasm of neck History of bilateral oophorectomy History of bilateral tubal ligation History of carpal tunnel release History of colonoscopy History of embolectomy S/P IVC filter Family History Father Liver cirrhosis Cancer Mother Heart attack Coronary artery disease Asthma Diabetes mellitus Brother No problems noted. Sister No problems noted. Sister No problems noted. Sister No problems noted. Sister No problems noted. Sister No problems noted. Sister No problems noted. Sister No problems noted. Sister No problems noted. Sister No problems noted. Sister No problems noted. Sister No problems noted. Sister No problems noted. Sister No problems noted. Paternal Aunt Colon cancer Son Histiocytosis Son No problems noted. Son No problems noted. Social History Household Members: Family Housing: Apartment Alcohol intake: never Patient Tobacco Use Status: Never used Tobacco e-Cigarette/Vaping Use: Never Used Second Hand Smoke Exposure: No service: No Current occupational status: disabled Current occupation: right hand Cognitive needs: Yes (cane) Hearing needs: No Vision needs: Yes Female Reproductive History Menstrual control method: permanent sterilization Permanent Sterilization: BTL Total pregnancies: 3 Full term: 3 Number of Living Children: 3 Date of last pap smear: 09/15/16 (neg pap and hpv) Date of Mammogram: 01/13/23 Physical Exam Vital Signs: Last Vital Signs BP 120/82 06/15/23 09:16 BMI result Body Mass Index 38.9 Const General: cooperative, healthy appearing, no acute distress, well developed and alert Orientation/consciousness: patient oriented x3 HEENT Head: Yes normal to inspection Eyes General: appearance normal, both eyes and all related structures Neck Neck: Yes normal visual inspection Thyroid: Thyroid normal Chest Chest palpation & inspection: normal inspection of the chest Breast/axilla inspection: normal inspection of the breasts (no puckering, dimpling, peau de orange, retraction, discharge, masses) Breast/axilla palpation: normal palpation of the breasts Resp Effort & Inspection: normal respiratory effort GI Inspection: Yes normal to inspection Palpation (GI): Soft to palpation (to palpation) Rectal Exam - Female: deferred Other: two lesions of condyloma on the mons; one at 1:00 at 11:00 ranging 2-2 1/2 cm General: Yes bladder normal to inspection External Female Exam: normal appearance of the urethra Speculum Exam - Vagina: normal appearance of the vagina, normal palpation and vagina atrophic Speculum Exam - Cervix: normal appearance of the cervix and normal palpation Bimanual exam- vagina & uterus: normal palpation and normal palpation Bimanual Exam- Adnexa, other: normal adnexae and no masses Skin General skin exam: no rashes or lesions noted Neuro General: patient oriented x3 Cognition (Neuro): normal cognition Extrem General: Yes normal to inspection Psych Attitude: cooperative Thought process: Normal thought process present Assessment & Plan Assessment & Plan (1) Encounter for well woman exam: Code(s): Z01.419 - Encounter for gynecological examination (general) (routine) without abnormal findings Plan: Discussed: Current recommendations for pap smears per ASCCP guidelines. Breast awareness and periodic self breast exams. Encouraged yearly mammograms. Maintaining a healthy lifestyle including a well balanced diet including Calcium and Vitamin D and routine exercise. Contact office with any PMB. Offered option for further evaluation of vulvar lesions with MD, she opts to leave the lesions alone, due to pain of the procedure in the past. All of her questions and concerns were addressed to the best of my ability RTO in 1 year for AG. (2) Condyloma acuminata: Comment: Last treated 04/2019. Declines Rx 2022 Code(s): A63.0 - Anogenital (venereal) warts Orders: Orders Pap Smear Today Z01.419 - Encounter for gynecological examination (general) (routine) without abnormal findings Coding Level of Care Code New Pt Prev Care 40-64y(30502) Diagnoses Encounter for well woman exam Z01.419 Condyloma acuminata A63.0
[2023-06-15 09:16] VITALS: BP 120/82; BMI 38.9
== END 2023-06-15 09:59 | disposition home or self-care (01) ==
LOC: HO.HWS 09:11
PROVIDERS: PCP Internal Medicine; Visit Provider Advanced Practice Midwife
DX: Z01.419 Encounter for gynecological examination (general) (routine) without abnormal findings (principal); A63.0 Anogenital (venereal) warts
CPT/HCPCS: 99386

== ENCOUNTER 2023-07-21 09:29 | Emergency (ER) | payer OTHER, SELFPAY ==
--- NOTE | ~2023-07-21 | CT_ITS ---
EXAMINATION: CT ANGIOGRAM OF THE CHEST WITHOUT AND WITH CONTRAST CLINICAL INFORMATION: Chest pain COMPARISON: None. TECHNIQUE: Multidetector volumetric CT imaging of the chest was performed before and after the administration of 85 mL of Omnipaque 350 intravenous contrast without immediate adverse reactions. 3D POSTPROCESSING: Multiple 3-D angiographic images were processed from the initial data set by the principal technologist at the modality workstation under concurrent physician supervision. DOSE LOWERING TECHNIQUES: This CT examination was performed using dose optimization techniques as appropriate, variously including the following: - Automated exposure control - Adjustment of mA and/or kV according to patient size (this includes techniques or standardized protocols for targeted exams where dose is matched to indication/reason for exam; i.e. extremities or head) - Use of iterative reconstruction technique DLP: 375 mGy-cm. FINDINGS: VASCULAR: THORACIC AORTA: Normal caliber and widely patent. No evidence of aneurysm or dissection. No significant atherosclerotic plaque seen. Branch vessels off the aortic arch are widely patent. ABDOMINAL AORTA: Visualized proximal abdominal aorta is normal in caliber. OTHER: Although not tailored Specifically to Evaluate the Pulmonary Arteries, There Is Good Contrast Opacification within the Pulmonary Arteries without Evidence of Acute Pulmonary Embolus. NONVASCULAR: LUNGS: The lungs are clear with no evidence of inflammation or nodules. MEDIASTINUM: The mediastinum is normal. Heart is normal in size. Pericardium is normal. CORONARY ARTERY CALCIFICATION: None visualized on this study. PLEURA: There is no pleural effusion. No pleural mass or thickening. ABDOMINAL VISCERA: Unremarkable OSSEOUS STRUCTURES: Unremarkable. CT/CT angio chest aorta IMPRESSION: Normal CTA of the chest. No evidence of aneurysm or dissection. No acute pulmonary embolus.
--- NOTE | ~2023-07-21 | XR_ITS ---
EXAMINATION: XR CHEST CLINICAL INFORMATION: Chest pain. COMPARISON: 03/10/2021 TECHNIQUE: Frontal view of the chest was obtained. FINDINGS: The lungs are hypoexpanded. No confluent opacity to suggest developing pneumonia. No pleural effusion. Cardiac silhouette is within normal limits for patient's age. XR/XR chest 1V IMPRESSION: No acute abnormality.
--- NOTE | 2023-07-21 09:43 | ED_ITS ---
[facility] - General Adult General Chief complaint: Chest Pain Stated complaint: pain lower back Time Seen by Provider: 07/21/23 09:39 Source: patient Limitations: no limitations History of Present Illness HPI narrative: 62-year-old female with extensive past medical history presents with intermittent sharp chest pain that at times radiates to her back. Patient denies any radiation to her left time. Patient states the symptoms have been ongoing for the past 3 days. At times she has exertional dyspnea with symptoms. Patient denies nausea vomiting fever chills at this time. Negative tobacco history. Patient has a history of de a DVT on the left is currently on Eliquis 10 DVT occurred many years prior at [facility] after trauma. Patient also has history of chronic lower back pain, fibromyalgia, morbid obesity, obstructive sleep apnea, asthma exertional dyspnea. Patient describes pain lasting 8 minutes at a time. No recent trauma or falls. Patient also has a history of hypercholesterolemia. Related Data Home Medications Medication Instructions Recorded Confirmed zolpidem 10 mg tablet (Ambien) 10 mg PO BEDTIME PRN Sleep 09/09/20 06/10/23 bimatoprost 0.01 % eye drops 0 drp ophthalmic (eye) DAILY 09/18/21 06/10/23 (Lumigan) duloxetine 60 mg capsule,delayed 60 mg PO DAILY 11/17/21 06/10/23 release acetaminophen 325 mg tablet 325 mg PO DAILY PRN Pain (Scale 01/21/22 06/10/23 Score 4-6) lithium carbonate 450 mg 450 mg PO BEDTIME 01/21/22 06/10/23 tablet,extended release omeprazole 20 mg capsule,delayed 20 mg PO DAILY 09/14/22 06/10/23 release lurasidone 40 mg tablet (Latuda) 40 mg PO BEDTIME 10/11/22 06/10/23 venlafaxine 150 mg 150 mg PO QPM 10/11/22 06/10/23 capsule,extended release 24 hr chlorhexidine gluconate 0.12 % 0.12 ea PO BID 12/15/22 06/10/23 mouthwash dorzolamide 22.3 mg-timolol 6.8 1 drp ophthalmic (eye) DAILY 01/20/23 06/10/23 mg/mL eye drops Previous Rx's Medication Instructions Recorded albuterol sulfate 2.5 mg/3 mL 2.5 mg (3 mL) continuous 09/06/22 (0.083 %) solution for nebulization nebulization QID PRN shortness of breath or wheezing 30 days #360 mL albuterol sulfate 90 mcg/actuation 2 puff inhalation Q6H PRN 09/06/22 aerosol inhaler (Ventolin HFA) shortness of breath or wheezing 30 days #8.5 grams ergocalciferol (vitamin D2) 1,250 1,250 mcg PO QWEEK 90 days #13 caps 09/06/22 mcg (50,000 unit) capsule COMPRESSION STOCKINGS (pantyhose) #2 ea 09/21/22 Flovent HFA 220 mcg/actuation 2 puff inhalation BID 30 days #12 09/25/22 aerosol inhaler (fluticasone grams propionate) phenol 1.4 % mucosal aerosol spray 4 spray mucous membrane Q5H PRN 10/06/22 (Chloraseptic Throat [place]) sore throat #20 mL gabapentin 600 mg tablet 600 mg PO TID #90 tabs 12/15/22 atorvastatin 80 mg tablet 80 mg PO DAILY 90 days #90 tabs 03/22/23 cyanocobalamin (vitamin B-12) 1,000 mcg PO DAILY 90 days #90 tabs 04/29/23 1,000 mcg tablet tramadol 50 mg tablet 50 mg PO BID PRN pain 30 days #60 06/14/23 tabs apixaban 5 mg tablet (Eliquis) 5 mg PO BID #60 tabs 07/21/23 methocarbamol 750 mg tablet 750 mg PO Q8H PRN muscle pain #14 07/21/23 tabs Allergies Allergy/AdvReac Type Severity Reaction Status Date / Time No Known Allergies Allergy Verified 06/15/23 09:14 Review of Systems Review of Systems: General: No fever, no chills Ophthalmology: No vision changes, no discharge ENT: No sore throat, no ear pain Cardiovascular: Positive sharp chest pain radiating to the back Respiratory: Exertional dyspnea at times no cough Muscle skeletal: Mid upper back pain GI: No abdominal pain, no nausea vomiting, no diarrhea : No dysuria, no urgency, no frequency Psychiatric: No depression, no suicidal ideation, no homicidal ideation Skin: No rash Immunology: No immunocompromised Hematology: No bleeding, no bruising PMFSH Past Medical History Attestation statement: The following information was validated with the patient. Medical History Anxiety Asthma Chronic low back pain Condyloma acuminata Cough COVID-19 DDD (degenerative disc disease) Depression DVT (deep venous thrombosis) Exertional dyspnea Fatigue Fibromyalgia Hyperthyroidism Insomnia Lumbar degenerative disc disease Lung granuloma Morbid obesity with BMI of 40.0-44.9, adult Neuropathy Obesity (BMI 30-39.9) Obstructive sleep apnea Obstructive sleep apnea Phlegmasia cerulea dolens Phlegmasia cerulea dolens Pure hypercholesterolemia Vitamin B12 deficiency Vitamin D deficiency Surgical History Benign neoplasm of neck History of bilateral oophorectomy History of bilateral tubal ligation History of carpal tunnel release History of colonoscopy History of embolectomy S/P IVC filter Family History Family History Father Liver cirrhosis Cancer Mother Heart attack Coronary artery disease Asthma Diabetes mellitus Brother No problems noted. Sister No problems noted. Sister No problems noted. Sister No problems noted. Sister No problems noted. Sister No problems noted. Sister No problems noted. Sister No problems noted. Sister No problems noted. Sister No problems noted. Sister No problems noted. Sister No problems noted. Sister No problems noted. Sister No problems noted. Paternal Aunt Colon cancer Son Histiocytosis Son No problems noted. Son No problems noted. Social History Social History Household Members: Family Housing: Apartment Alcohol intake: former Patient Tobacco Use Status: Never used Tobacco Smoked in Last 30 Days: No e-Cigarette/Vaping Use: Never Used Second Hand Smoke Exposure: No Use of substances other than those prescribed or required for medical reasons: No Advance Directives: No service: No Current occupational status: disabled Current occupation: right hand Cognitive needs: Yes (cane) Hearing needs: No Vision needs: Yes Physical Exam ED Vital Signs: Vital Signs - 24 hr 07/21/23 11:31 07/21/23 13:34 Temperature 97.5 F Pulse Rate 59 63 Respiratory Rate 20 18 Blood Pressure 135/60 155/79 H Pulse Oximetry 97 Oxygen Delivery Method Room Air BMI result Body Mass Index 38.7 General appearance: Awake, alert, cooperative, in no acute distress Skin: Warm, dry, no rash Eyes: PERRL, EOMI, no icterus ENT: Oropharynx normal, uvula midline Neck: Soft supple full range of motion Pulmonary: Breath sounds clear to auscultation bilaterally, no accessory muscle use Cardiovascular: Regular rate and rhythm, no murmurs and rubs minimal chest wall tenderness on palpation left sternal border Abdomen: Soft nontender, no rebound or guarding, positive bowel sounds Extremities: Slight left calf tenderness she states she has chronic swelling there and pain. No new trauma or injuries to that area Neuro: Alert oriented x3, no focal deficit, strand and binder controller is equal bilaterally Psych: Normal affect Course Course Course Narrative: Differential diagnosis: ACS Unstable angina Pulmonary embolism Thoracic dissection Chest wall pain Pneumonia 62-year-old female with morbid obesity extensive medical history of hyperch olesterolemia, DVT left leg obstructive sleep apnea, asthma, hypothyroidism fibromyalgia. Presents with chest pain as sharp in nature radiating to her back. Patient states at times exertional shortness of breath. Patient is without nausea vomiting fever chills no recent falls or trauma. Patient is currently on Eliquis for a left leg DVT in the past. That was diagnosed many years prior [facility]. Plan at this time is 12 lead ECG, CBC, CMP, INR, chest x-ray, place patient on monitor. High sensitive troponin pending 10:17 CT angio rule out dissection with IV contrast and hopefully evaluate for pulmonary embolism will be ordered. Case discussed with Dr. Flores who agrees with current treatment and plan. 500 mL normal saline IV bolus 11:44 chest x-ray is negative CT a is pending at this time plan for repeat troponin at 12:15 13:44 case discussed at length with patient and negative CT scan for pulmonary embolism or thoracic dissection. Patient had 2 troponins that were -2 hours apart case discussed with Dr. Flores who agrees with current treatment plan her symptoms seem more related to muscle skeletal will plan to discharge home at this time with close follow-up with PCP and strict precautions to return if symptoms worsen. Medications Administered Discontinued Medications Generic Name Dose Route Start Last Admin Trade Name Freq PRN Reason Stop Dose Admin Acetaminophen 650 mg 07/21/23 11:21 07/21/23 11:27 Acetaminophen 325 Mg Tablet PO 07/21/23 11:22 650 mg ONCE ONE Administration Sodium Chloride 500 mls @ 500 mls/hr 07/21/23 10:30 07/21/23 11:51 Ns IV 07/21/23 11:29 Infused .Q1H EVELYN Infusion Iohexol 100 ml 07/21/23 11:15 07/21/23 11:15 Iohexol 350 Mg/Ml 100 Ml Infus..Btl IV 07/21/23 11:16 85 ml ONCE ONE Administration Tramadol HCl 50 mg 07/21/23 12:37 07/21/23 12:40 Tramadol Hcl 50 Mg Tablet PO 07/21/23 12:38 50 mg ONCE ONE Administration Medical Decision Making Lab Data 07/21/23 10:14 07/21/23 10:14 Labs: Lab Results 07/21/23 07/21/23 07/21/23 Range/Units 10:14 10:14 10:14 WBC 8.2 (4.8-10.8) X10*3/uL RBC 4.40 (4.20-5.50) X10*6/uL Hgb 12.0 (12.0-16.0) g/dl Hct 37.0 (37.0-47.0) % MCV 84.1 (80.0-98.0) fL MCH 27.3 (27.0-33.0) pg MCHC 32.4 (31.0-35.0) g/dl RDW 14.6 (11.0-16.0) % Plt Count 269 (160-400) X10*3/uL MPV 10.0 (9.4-12.3) fL Immature Gran % (Auto) 0.4 (0.0-0.4) % Neut % (Auto) 51.8 (45-73) % Lymph % (Auto) 38.2 (20-40) % [place] % (Auto) 8.2 (2-11) % Eos % (Auto) 1.0 (0-4) % Baso % (Auto) 0.4 (0-2) % Lymph # (Auto) 3.1 (1.2-4.9) X10*3/uL [place] # (Auto) 0.7 (0.1-1.2) X10*3/uL Eos # (Auto) 0.1 (0.0-0.4) X10*3/uL Baso # (Auto) 0.0 (0.0-0.2) X10*3/uL Abs Immat Gran (auto) 0.03 (0.00-0.03) X10*3/uL Absolute Neuts (auto) 4.3 (2.0-8.3) x10*3/uL Absolute Nucleated RBC 0.000 (0.0-0.012) X10*3/uL Nucleated RBC % (auto) 0.0 (0.0-0.2) /100WBC PT 14.5 H (11.1-13.3) SEC INR 1.2 H D (0.9-1.1) Sodium 138 (135-145) mmol/L Potassium 4.2 (3.3-5.1) mmol/L Chloride 109 H (96-108) mmol/L Carbon Dioxide 22 (22-29) mmol/L Anion Gap 11 L (12-20) BUN 15 (9-16) mg/dL Creatinine 0.87 (0.5-1.4) mg/dL Estim Creat Clear Calc 73.2 Estimated GFR > 60 Random Glucose 100 (60-115) mg/dL Calcium 9.4 (8.4-10.2) mg/dL Total Bilirubin 0.5 (0.0-1.0) mg/dL AST 20 (5-31) U/L ALT 17 (0-31) U/L Alkaline Phosphatase 82 (39-117) U/L Troponin I High Sens (<3.5-17.0) ng/L Total Protein 7.4 (6.5-8.0) g/dL Albumin 3.9 (3.5-5.0) g/dL 07/21/23 07/21/23 Range/Units 10:14 12:19 WBC (4.8-10.8) X10*3/uL RBC (4.20-5.50) X10*6/uL Hgb (12.0-16.0) g/dl Hct (37.0-47.0) % MCV (80.0-98.0) fL MCH (27.0-33.0) pg MCHC (31.0-35.0) g/dl RDW (11.0-16.0) % Plt Count (160-400) X10*3/uL MPV (9.4-12.3) fL Immature Gran % (Auto) (0.0-0.4) % Neut % (Auto) (45-73) % Lymph % (Auto) (20-40) % [place] % (Auto) (2-11) % Eos % (Auto) (0-4) % Baso % (Auto) (0-2) % Lymph # (Auto) (1.2-4.9) X10*3/uL [place] # (Auto) (0.1-1.2) X10*3/uL Eos # (Auto) (0.0-0.4) X10*3/uL Baso # (Auto) (0.0-0.2) X10*3/uL Abs Immat Gran (auto) (0.00-0.03) X10*3/uL Absolute Neuts (auto) (2.0-8.3) x10*3/uL Absolute Nucleated RBC (0.0-0.012) X10*3/uL Nucleated RBC % (auto) (0.0-0.2) /100WBC PT (11.1-13.3) SEC INR (0.9-1.1) Sodium (135-145) mmol/L Potassium (3.3-5.1) mmol/L Chloride (96-108) mmol/L Carbon Dioxide (22-29) mmol/L Anion Gap (12-20) BUN (9-16) mg/dL Creatinine (0.5-1.4) mg/dL Estim Creat Clear Calc Estimated GFR Random Glucose (60-115) mg/dL Calcium (8.4-10.2) mg/dL Total Bilirubin (0.0-1.0) mg/dL AST (5-31) U/L ALT (0-31) U/L Alkaline Phosphatase (39-117) U/L Troponin I High Sens < 2.7 < 2.7 (<3.5-17.0) ng/L Total Protein (6.5-8.0) g/dL Albumin (3.5-5.0) g/dL Independent Interpretation I performed an independent interpretation of an: EKG Interpretation: EKG sinus rhythm at a rate of [address] elevation no previous to compare at this time. Radiology Impression Discussion of test interpretation with radiology: I have reviewed the radiologist's reading. Radiologist Impression: [address] [id number] Scan ReportSigned Patient: Josette Goodman#: [id number]: [id number]:[id number]/Sex: 62 / FADM Date: 07/21/23Loc: EDAttending Dr: Ordering Physician: Umberto Nicholson Date of Service: 07/21/23 Procedure(s): CT angio chest aorta Accession Number(s): [id number] cc: Umberto Nicholson ~ EXAMINATION: CT ANGIOGRAM OF THE CHEST WITHOUT AND WITH CONTRAST CLINICAL INFORMATION: Chest pain COMPARISON: None. TECHNIQUE: Multidetector volumetric CT imaging of the chest was performed before and after the administration of 85 mL of Omnipaque 350 intravenous contrast without immediate adverse reactions. 3D POSTPROCESSING: Multiple 3-D angiographic images were processed from the initial data set by the process safety engineering technologist at the modality workstation under concurrent physician supervision. DOSE LOWERING TECHNIQUES: This CT examination was performed using dose optimization techniques as appropriate, variously including the following: - Automated exposure control - Adjustment of mA and/or kV according to patient size (this includes techniques or standardized protocols for targeted exams where dose is matched to indication/reason for exam; i.e. extremities or head) - Use of iterative reconstruction technique DLP: 375 mGy-cm. FINDINGS: VASCULAR: THORACIC AORTA: Normal caliber and widely patent. No evidence of aneurysm or dissection. No significant atherosclerotic plaque seen. Branch vessels off the aortic arch are widely patent. ABDOMINAL AORTA: Visualized proximal abdominal aorta is normal in caliber. OTHER: Although not tailored Specifically to Evaluate the Pulmonary Arteries, There Is Good Contrast Opacification within the Pulmonary Arteries without Evidence of Acute Pulmonary Embolus. NONVASCULAR: LUNGS: The lungs are clear with no evidence of inflammation or nodules. MEDIASTINUM: The mediastinum is normal. Heart is normal in size. Pericardium is normal. CORONARY ARTERY CALCIFICATION: None visualized on this study. PLEURA: There is no pleural effusion. No pleural mass or thickening. ABDOMINAL VISCERA: Unremarkable OSSEOUS STRUCTURES: Unremarkable. CT/CT angio chest aorta IMPRESSION: Normal CTA of the chest. No evidence of aneurysm or dissection. No acute pulmonary embolus. Dictated By:Negro Scott MDSigned By:<Electronically signed by Negro Scott MD in OV>07/21/23 1332 DD/ 1116TD/TT: Inspector Multifocal Lens: [address] [id number] ReportSigned Patient: Josette Goodman#: [id number]: 8Acct:[id number]/Sex: 62 / FADM Date: 07/21/23Loc: EDAttending Dr: Ordering Physician: Umberto Nicholson Date of Service: 07/21/23 Procedure(s): XR chest 1V Accession Number(s): [id number] cc: Umberto Nicholson ~ EXAMINATION: XR CHEST CLINICAL INFORMATION: Chest pain. COMPARISON: 03/10/2021 TECHNIQUE: Frontal view of the chest was obtained. FINDINGS: The lungs are hypoexpanded. No confluent opacity to suggest developing pneumonia. No pleural effusion. Cardiac silhouette is within normal limits for patient's age. XR/XR chest 1V IMPRESSION: No acute abnormality. Dictated By:Jeronimo Green MDSigned By:<Electronically signed by Jeronimo Green MD in OV>07/21/23 1103 DD/ 1055TD/TT: Inspector Multifocal Lens: Discharge Plan Discharge Clinical Impression: Acute chest wall pain Patient Disposition: Home, Self-Care Instructions: Chest Pain (ED) Additional Instructions: You had multiple tests done today the chest CT scan showed no sign of a pulmonary embolism or clot your lungs or dissection of UA order. Return if symptoms worsen Lab work looks at your heart was within normal limits Close follow-up with her PCP is recommended Her chest x-ray was also negative Your symptoms seem to muscle skeletal related Prescriptions: New methocarbamol 750 mg tablet 750 mg PO Q8H PRN (Reason: muscle pain) Qty: 14 0RF No Action (DME) COMPRESSION STOCKINGS (pantyhose) MID-compression See Rx Instructions .Route .MEDSUPPLY Qty: 2 1RF Rx Instructions: As directed Flovent HFA 220 mcg/actuation HFA aerosol inhaler 2 puff inhalation BID 30 Days Qty: 12 5RF Chloraseptic Throat [place] 1.4 % aerosol,spray 4 spray mucous membrane Q5H PRN (Reason: sore throat) Qty: 20 0RF gabapentin 600 mg tablet 600 mg PO TID Qty: 90 5RF atorvastatin 80 mg tablet 80 mg PO DAILY 90 Days Qty: 90 1RF cyanocobalamin (vitamin B-12) 1,000 mcg tablet 1,000 mcg PO DAILY 90 Days Qty: 90 1RF tramadol 50 mg tablet 50 mg PO BID PRN (Reason: pain) 30 Days Qty: 60 0RF Rx Instructions: Take 1 tablet orally 2 times a day ONLY as needed chlorhexidine gluconate 0.12 % mouthwash 0.12 ea PO BID Eliquis 5 mg Tablet 5 mg PO BID Qty: 60 3RF duloxetine 60 mg capsule,delayed release(DR/EC) 60 mg PO DAILY albuterol sulfate 2.5 mg /3 mL (0.083 %) solution for nebulization 2.5 mg continuous nebulization QID PRN (Reason: shortness of breath or wheezing) 30 Days Qty: 360 12RF albuterol sulfate [Ventolin HFA] 90 mcg/actuation HFA aerosol inhaler 2 puff inhalation Q6H PRN (Reason: shortness of breath or wheezing) 30 Days Qty: 8.5 12RF Rx Instructions: 2 puffs Inhalation every 6 hrs as needed ergocalciferol (vitamin D2) 1,250 mcg (50,000 unit) capsule 1,250 mcg PO QWEEK 90 Days Qty: 13 3RF zolpidem [Ambien] 10 mg tablet 10 mg PO BEDTIME PRN (Reason: Sleep) venlafaxine 150 mg capsule,extended release 24hr 150 mg PO QPM Latuda 40 mg tablet 40 mg PO BEDTIME Lumigan 0.01 % drops 0 drp ophthalmic (eye) DAILY acetaminophen 325 mg tablet 325 mg PO DAILY PRN (Reason: Pain (Scale Score 4-6)) lithium carbonate 450 mg tablet extended release 450 mg PO BEDTIME omeprazole 20 mg capsule,delayed release(DR/EC) 20 mg PO DAILY dorzolamide-timolol 22.3-6.8 mg/mL drops 1 drp ophthalmic (eye) DAILY Interventions: ED Discharge Assessment Last Done: 07/21/23 13:52 Discharge Date/Time: 07/21/23 13:56
[2023-07-21 09:47] VITALS: BMI 38.7
--- NOTE | 2023-07-21 09:55 | PC.NURSE ---
Patient reports sharp left sided chest pain that come and goes. Reports that pain goes into her back also. Reports hx of blood clot in leg that required surgery and mesh placement in [place]. Provider aware, ekg obtained.
--- NOTE | 2023-07-21 09:56 | ECG_ITS ---
Test Reason : cp Blood Pressure : / mmHG Vent. Rate : 061 BPM Atrial Rate : 061 BPM P-R Int : 152 ms QRS Dur : 094 ms QT Int : 428 ms P-R-T Axes : 000 -22 -30 degrees QTc Int : 430 ms Normal sinus rhythm Low voltage QRS Borderline ECG When compared with ECG of 23-JAN-2021 18:23, T wave inversion more evident in Inferior leads Referred By: Umberto Nicholson Electronically Signed By:MIKE HUANG
[2023-07-21 10:18] LABS: MANUAL DIFF FLAG NO
[2023-07-21 10:20] LABS: Basophils Percent Auto 0.4 % (0-2); Eosinophils Absolute Auto 0.1 X10*3/uL (0.0-0.4); Imm Gran Abs Auto 0.03 X10*3/uL (0.00-0.03); Imm Gran Pct Auto 0.4 % (0.0-0.4); Lymphocytes Absolute Auto 3.1 X10*3/uL (1.2-4.9); Lymphocytes Percent Auto 38.2 % (20-40); Mean Corpuscular HGB Conc 32.4 g/dl (31.0-35.0); Mean Corpuscular Hemoglobin 27.3 pg (27.0-33.0); Mean Corpuscular Volume 84.1 fL (80.0-98.0); Monocytes Absolute Auto 0.7 X10*3/uL (0.1-1.2); Monocytes Percent Auto 8.2 % (2-11); Neutrophils Absolute Auto 4.3 x10*3/uL (2.0-8.3); Neutrophils Percent Auto 51.8 % (45-73); Platelet Count 269 X10*3/uL (160-400); Red Cell Distribution Width 14.6 % (11.0-16.0); White Blood Count 8.2 X10*3/uL (4.8-10.8)
[2023-07-21 10:36] LABS: Alanine Aminotransferase 17 U/L (0-31); Albumin Level 3.9 g/dL (3.5-5.0); Alkaline Phosphatase 82 U/L (39-117); Anion Gap 11 (12-20); Aspartate Amino Transferase 20 U/L (5-31); Bilirubin Total 0.5 mg/dL (0.0-1.0); Blood Urea Nitrogen 15 mg/dL (9-16); Calcium 9.4 mg/dL (8.4-10.2); Carbon Dioxide 22 mmol/L (22-29); Chloride 109 mmol/L (96-108); Creatinine Clr Calc Pharmacy 73.2; Estimated Glomerular Filt Rate > 60; Glucose Random 100 mg/dL (60-115); Potassium 4.2 mmol/L (3.3-5.1); Sodium 138 mmol/L (135-145); Total Protein 7.4 g/dL (6.5-8.0)
[2023-07-21 10:45] LABS: Troponin-I High Sensitivity < 2.7 ng/L (<3.5-17.0)
[2023-07-21 10:46] LABS: INTERNATIONAL NORM RATIO 1.2 (0.9-1.1); Prothrombin Time 14.5 SEC (11.1-13.3)
[2023-07-21] MEDS: 0.9 % Sodium Chloride 500 ML IV (10:56)
[2023-07-21] MEDS: iohexoL 350 MG/ML 100 ML INFUS..BTL IV (11:15)
[2023-07-21] MEDS: Acetaminophen 325 MG TABLET 650 MG PO (11:27)
[2023-07-21 11:31] VITALS: BP 135/60; PULSE 59; RESP 20
--- NOTE | 2023-07-21 11:33 | PC.NURSE ---
pt medicated per JAN for 06/30 chest pain- NSR on monitor 500ml NS infusing per order- pt awaiting imaging results
--- NOTE | 2023-07-21 12:37 | PC.NURSE ---
pt reports no improvement after APAP- provider aware
[2023-07-21] MEDS: traMADoL HCL 50 MG TABLET PO (12:40)
[2023-07-21 12:45] LABS: Troponin-I High Sensitivity < 2.7 ng/L (<3.5-17.0)
--- NOTE | 2023-07-21 12:45 | PC.NURSE ---
pt medicated per JAN for 05/30 chest pain- awaiting CTA results call cohen within reach
[2023-07-21 13:34] VITALS: BP 155/79; PULSE 63; RESP 18; TEMP 36.4; O2SAT 97
== END 2023-07-21 13:56 | disposition home or self-care (01) ==
PROVIDERS: Physician Assistant; Emergency Provider Emergency Medicine; PCP Internal Medicine
DX: R07.89 Other chest pain (principal); E78.00 Pure hypercholesterolemia, unspecified; E66.9 Obesity, unspecified; Z68.38 Body mass index [BMI] 38.0-38.9, adult; Z86.718 Personal history of other venous thrombosis and embolism; Z79.01 Long term (current) use of anticoagulants; Z79.899 Other long term (current) drug therapy
CPT/HCPCS: 36415; 71045; 71275; 80053; 84484; 85025; 85610; 93005; 96360; 99284; 99285; Q9967

== ENCOUNTER 2023-08-09 09:15 | Inpatient (IN) | payer OTHER, SELFPAY ==
[2023-08-09] VITALS (7 sets, daily range): BP systolic 113–149; BP diastolic 66–82; PULSE 60–96; RESP 16–20; TEMP 36–37; O2SAT 97–100; BMI 40.5
--- NOTE | ~2023-08-09 | US_ITS ---
EXAMINATION: US ABDOMEN LIMITED CLINICAL INFORMATION: Right upper quadrant and right flank pain. COMPARISON: None available. TECHNIQUE: Real-time imaging of the right upper quadrant abdominal viscera. FINDINGS: GALLBLADDER: Gallbladder is distended measuring 15.2 cm. Gallstones are seen including shadowing, nonmobile stone identified within the gallbladder neck. Gallbladder thickening to 5 mm. Tenderness elicited during study. COMMON BILE DUCT: Normal in caliber measuring 0.5 cm in diameter. RIGHT KIDNEY: Normal. No hydronephrosis. No renal calculi or focal parenchymal lesions. The kidney measures 10.4 cm in maximum dimension. FREE FLUID: None. US/US abdomen limited IMPRESSION: Impacted gallbladder neck stone with gallbladder distention, wall thickening and right upper quadrant tenderness suspicious for acute cholecystitis.
--- NOTE | ~2023-08-09 | CT_ITS ---
EXAMINATION: CT ABDOMEN AND PELVIS WITH CONTRAST CLINICAL INFORMATION: Right upper quadrant pain COMPARISON: CT of 12/03/2016 and right upper quadrant ultrasound of 08/09/2023 TECHNIQUE: Multidetector volumetric images were obtained from the superior aspect of the liver through the pubic symphysis following administration 85 mL of Omnipaque 350 intravenous contrast. Sagittal and coronal reformatted images were obtained on the technologist's workstation. Oral contrast: No This CT examination was performed using dose optimization techniques as appropriate, variously including the following: *Automated exposure control *Adjustment of mA and/or kV according to patient size (this includes techniques or standardized protocols for targeted exams where dose is matched to indication/reason for exam; i.e. extremities or head) *Use of iterative reconstruction technique DLP: 956 mGy-cm FINDINGS: LUNG BASES: Calcified granuloma is evident at the left lung base. There are coronary artery calcifications. LIVER, GALLBLADDER, AND BILIARY TREE: The liver is normal in size, shape, and attenuation. No focal hepatic lesion or biliary ductal dilatation is present. The gallbladder wall is thickened and pericholecystic edema is evident, with the gallbladder wall measuring up to 5 mm. The calculi visualized on ultrasound are not visualized. PANCREAS: Unremarkable. SPLEEN: Unremarkable. ADRENAL GLANDS: Unremarkable. KIDNEYS AND URETERS: The kidneys are normal in size, shape, and attenuation. No hydronephrosis, hydroureter, or calculi seen. No perinephric stranding. BLADDER: Unremarkable. GASTROINTESTINAL TRACT: The small and large bowel are unremarkable. The appendix is unremarkable. ABDOMINAL WALL: No significant hernia is appreciated. LYMPH NODES: Normal. VASCULAR: There is an IVC filter. No thrombus is detected. PELVIC VISCERA: There are no adnexal masses. There is a small amount of free fluid in the cul-de-sac, greater than expected for age consistent with an intraperitoneal inflammatory process. OSSEOUS STRUCTURES: Unremarkable. CT/CT abdomen pelvis w IV con IMPRESSION: 1. Distended gallbladder with associated wall thickening and edema. In conjunction with the sonographically detected calculi, the findings are compatible with acute cholecystitis. 2. Fluid in the cul-de-sac, presumably the sequela of the upper abdominal inflammatory process. 3. Left lung base calcified granuloma. 4. The above urgent findings were reported at the time of interpretation on 08/09/2023 at 2:[address] Penaloza. Fleischner guidelines were followed.
--- NOTE | 2023-08-09 09:51 | ECG_ITS ---
Test Reason : epigastric Blood Pressure : / mmHG Vent. Rate : 083 BPM Atrial Rate : 083 BPM P-R Int : 160 ms QRS Dur : 084 ms QT Int : 390 ms P-R-T Axes : 055 017 006 degrees QTc Int : 458 ms Normal sinus rhythm Normal ECG When compared with ECG of 21-JUL-2023 10:01, No significant change was found Referred By: Sheri Penaloza Electronically Signed By:MIKE HUANG
--- NOTE | 2023-08-09 10:13 | ED_ITS ---
HPI - Abdominal Pain General Chief Complaint: Abdominal Pain Stated Complaint: R Upper Quadrant Pain To Back Time Seen by Provider: 08/09/23 09:33 Source: patient, family and automotive parts interpreter Mode of arrival: ambulatory Limitations: no limitations History of Present Illness HPI narrative: 62-year-old female Armenian-speaking came in for evaluation of right upper quadrant abdominal pain started for 3 days. Pain has been constant but waxes and wanes, get worse with food, pain is associated with nausea but no vomiting, no fever or chills. Last bowel movement was loose stool and was yesterday, passing flatus, surgical history significant for . Related Data Home Medications Medication Instructions Recorded Confirmed zolpidem 10 mg tablet (Ambien) 10 mg PO BEDTIME PRN Sleep 09/09/20 06/10/23 bimatoprost 0.01 % eye drops 0 drp ophthalmic (eye) DAILY 09/18/21 06/10/23 ([place]) duloxetine 60 mg capsule,delayed 60 mg PO DAILY 11/17/21 06/10/23 release acetaminophen 325 mg tablet 325 mg PO DAILY PRN Pain (Scale 01/21/22 06/10/23 Score 4-6) lithium carbonate 450 mg 450 mg PO BEDTIME 01/21/22 06/10/23 tablet,extended release omeprazole 20 mg capsule,delayed 20 mg PO DAILY 09/14/22 06/10/23 release lurasidone 40 mg tablet (Latuda) 40 mg PO BEDTIME 10/11/22 06/10/23 venlafaxine 150 mg 150 mg PO QPM 10/11/22 06/10/23 capsule,extended release 24 hr chlorhexidine gluconate 0.12 % 0.12 ea PO BID 12/15/22 06/10/23 mouthwash dorzolamide 22.3 mg-timolol 6.8 1 drp ophthalmic (eye) DAILY 01/20/23 06/10/23 mg/mL eye drops Previous Rx's Medication Instructions Recorded albuterol sulfate 2.5 mg/3 mL 2.5 mg (3 mL) continuous 09/06/22 (0.083 %) solution for nebulization nebulization QID PRN shortness of breath or wheezing 30 days #360 mL albuterol sulfate 90 mcg/actuation 2 puff inhalation Q6H PRN 09/06/22 aerosol inhaler (Ventolin HFA) shortness of breath or wheezing 30 days #8.5 grams ergocalciferol (vitamin D2) 1,250 1,250 mcg PO QWEEK 90 days #13 caps 09/06/22 mcg (50,000 unit) capsule COMPRESSION STOCKINGS (pantyhose) #2 ea 09/21/22 Flovent HFA 220 mcg/actuation 2 puff inhalation BID 30 days #12 09/25/22 aerosol inhaler (fluticasone grams propionate) phenol 1.4 % mucosal aerosol spray 4 spray mucous membrane Q5H PRN 10/06/22 (Chloraseptic Throat [place]) sore throat #20 mL gabapentin 600 mg tablet 600 mg PO TID #90 tabs 12/15/22 atorvastatin 80 mg tablet 80 mg PO DAILY 90 days #90 tabs 03/22/23 cyanocobalamin (vitamin B-12) 1,000 mcg PO DAILY 90 days #90 tabs 04/29/23 1,000 mcg tablet apixaban 5 mg tablet (Eliquis) 5 mg PO BID #60 tabs 07/21/23 methocarbamol 750 mg tablet 750 mg PO Q8H PRN muscle pain #14 07/21/23 tabs tramadol 50 mg tablet 50 mg PO BID PRN pain 30 days #60 07/29/23 tabs Allergies Allergy/AdvReac Type Severity Reaction Status Date / Time No Known Allergies Allergy Verified 06/15/23 09:14 Review of Systems Review of Systems All other systems are reviewed and are negative Constitutional: Reports as per HPI and Reports no additional constitutional complaints Eyes: Reports as per HPI and Reports no additional eye complaints Reports system reviewed and no additional complaints, except as documented Cardiovascular: Reports as per HPI and Reports no additional cardiovascular complaints Respiratory: Reports as per HPI and Reports no additional respiratory complaints Gastrointestinal: Reports as per HPI and Reports no additional gastrointestinal complaints Genitourinary: Reports no additional female genitourinary complaints Musculoskeletal: Reports no additional musculoskeletal complaints Skin/Breast: Reports system reviewed and no additional complaints, except as docu Psychiatric: Reports no additional psychiatric complaints Endocrine: Reports no additional endocrine complaints Hematologic/Lymphatic: Reports no additional hematologic/lymphatic complaints Allergic/Immunologic: Reports no additional allergic/immunologic complaints Reports system reviewed and no additional complaints, except as documented and Reports Abnormal speech present [facility] Past Medical History Medical History Anxiety Asthma Chronic low back pain Condyloma acuminata Cough COVID-19 DDD (degenerative disc disease) Depression DVT (deep venous thrombosis) Exertional dyspnea Fatigue Fibromyalgia Hyperthyroidism Insomnia Lumbar degenerative disc disease Lung granuloma Morbid obesity with BMI of 40.0-44.9, adult Neuropathy Obesity (BMI 30-39.9) Obstructive sleep apnea Obstructive sleep apnea Phlegmasia cerulea dolens Phlegmasia cerulea dolens Pure hypercholesterolemia Vitamin B12 deficiency Vitamin D deficiency Surgical History History of embolectomy Benign neoplasm of neck History of colonoscopy History of bilateral tubal ligation History of carpal tunnel release History of bilateral oophorectomy S/P IVC filter Family History Family History Father Liver cirrhosis Cancer Mother Heart attack Coronary artery disease Asthma Diabetes mellitus Brother No problems noted. Sister No problems noted. Sister No problems noted. Sister No problems noted. Sister No problems noted. Sister No problems noted. Sister No problems noted. Sister No problems noted. Sister No problems noted. Sister No problems noted. Sister No problems noted. Sister No problems noted. Sister No problems noted. Sister No problems noted. Paternal Aunt Colon cancer Son Histiocytosis Son No problems noted. Son No problems noted. Social History Social History Household Members: Family Housing: Apartment Alcohol intake: former Patient Tobacco Use Status: Never used Tobacco Smoked in Last 30 Days: No e-Cigarette/Vaping Use: Never Used Second Hand Smoke Exposure: No Use of substances other than those prescribed or required for medical reasons: No Advance Directives: No Advance Directives Information Provided: Yes service: No Current occupational status: disabled Current occupation: right hand Cognitive needs: Yes (cane) Hearing needs: No Vision needs: Yes Physical Exam ED Vital Signs: Vital Signs - 24 hr 08/09/23 09:25 08/09/23 09:50 08/09/23 10:54 Temperature 97.6 F Pulse Rate 95 96 Respiratory Rate 18 16 Blood Pressure 113/70 116/82 124/77 Pulse Oximetry 98 97 Oxygen Delivery Method Room Air Room Air BMI result Body Mass Index 40.5 Vital signs have been reviewed and appear to be correct. Blood pressure elevated. Heart rate normal. Respiratory rate normal. Temperature normal. Oxygen saturation normal. Appearance: Alert. Oriented X3. No acute distress. Head: Normal external exam. Normocephalic. Atraumatic. No Soto signs noted. No raccoon eyes noted Eyes: PERRLA. EOMI. Conjunctiva and sclera normal. Eyelids normal. ENT: TM's Normal. Pharynx normal. Uvula midline. Moist mucous membranes. No trismus noted. No drooling noted. No muffled voice noted. Neck: Normal inspection. Neck supple. FROM. No adenopathy. Thyroid Normal. No meningeal signs. No neck mass noted. CVS: Normal heart rate and rhythm. Heart sound normal. No murmurs noted. Pulses normal throughout. Respiratory: No respiratory distress. Painless inspiration. Breath sounds normal. No wheezes/rales/rhonchi noted. Chest nontender. No accessory muscle usage noted or decreased air movement noted. Abdomen: Soft, obese, right upper quadrant tenderness, no rebound tenderness, no guarding. Bowel sounds normal in all 4 quadrants. No distention noted. No organomegaly noted. No visible injury noted. Back: No CVA tenderness. Full range of motion noted. Skin: Skin warm and dry. Normal skin color. Normal skin turgor. No rashes/lesions/lacerations noted. Extremities: No lower extremity edema. Extremities exhibit normal range of motion. Extremities nontender. Neuro: Oriented X 3. Cranial nerve exam: II-XII are grossly intact No motor deficit. No sensory deficit. Reflexes normal. Course Course Course Narrative: Biliary colic with acute cholecystitis and intractable vomiting. No severe sepsis or septic shock. Keep the patient NPO, Zosyn, surgical consultation Dr. Jacobson. Medical Decision Making Differential Diagnosis Differential Diagnoses: The differential diagnosis associated with the presentation includes (Cholelithiasis, cholecystitis, biliary colic, pancreatitis, gastritis, pyelonephritis, kidney stone, electrolyte abnormality, severe anemia.) Admission/Observation Consideration of admission/observation: Escalation of care including admission/observation considered Consult Healthcare Provider Management of the patient was discussed with: [place] Strip Inspector (Dr. Jacobson) Lab Data MDM Lab Attestation statement: I reviewed the patient's lab results. 08/09/23 10:11 08/09/23 10:11 Labs: Lab Results 08/09/23 Range/Units 10:11 WBC 9.2 (4.8-10.8) X10*3/uL RBC 4.77 (4.20-5.50) X10*6/uL Hgb 13.1 (12.0-16.0) g/dl Hct 39.7 (37.0-47.0) % MCV 83.2 (80.0-98.0) fL MCH 27.5 (27.0-33.0) pg MCHC 33.0 (31.0-35.0) g/dl RDW 14.4 (11.0-16.0) % Plt Count 278 (160-400) X10*3/uL MPV 10.4 (9.4-12.3) fL Immature Gran % (Auto) 0.3 (0.0-0.4) % Neut % (Auto) 65.3 (45-73) % Lymph % (Auto) 24.1 (20-40) % Kidder % (Auto) 8.7 (2-11) % Eos % (Auto) 1.1 (0-4) % Baso % (Auto) 0.5 (0-2) % Lymph # (Auto) 2.2 (1.2-4.9) X10*3/uL [place] # (Auto) 0.8 (0.1-1.2) X10*3/uL Eos # (Auto) 0.1 (0.0-0.4) X10*3/uL Baso # (Auto) 0.1 (0.0-0.2) X10*3/uL Abs Immat Gran (auto) 0.03 (0.00-0.03) X10*3/uL Absolute Neuts (auto) 6.0 (2.0-8.3) x10*3/uL Absolute Nucleated RBC 0.000 (0.0-0.012) X10*3/uL Nucleated RBC % (auto) 0.0 (0.0-0.2) /100WBC Sodium 137 (135-145) mmol/L Potassium 3.7 (3.3-5.1) mmol/L Chloride 105 (96-108) mmol/L Carbon Dioxide 22 (22-29) mmol/L Anion Gap 14 (12-20) BUN 19 H (9-16) mg/dL Creatinine 1.15 (0.5-1.4) mg/dL Estim Creat Clear Calc 56.9 Estimated GFR 48 Random Glucose 114 (60-115) mg/dL Calcium 9.8 (8.4-10.2) mg/dL Total Bilirubin 0.8 (0.0-1.0) mg/dL Direct Bilirubin 0.3 (0.0-0.5) mg/dL AST 23 (5-31) U/L ALT 19 (0-31) U/L Alkaline Phosphatase 91 (39-117) U/L Troponin I High Sens < 2.7 (<3.5-17.0) ng/L Total Protein 8.4 H (6.5-8.0) g/dL Albumin 4.3 (3.5-5.0) g/dL Lipase 15 (8-78) U/L Independent Interpretation I performed an independent interpretation of an: Ultrasound (Impacted gallbladder neck stone with gallbladder distention, wall thickening and right upper quadrant tenderness suspicious for acute cholecystitis.) Radiology Impression Discussion of test interpretation with radiology: I have reviewed the radiologist's reading. Medications Administered Discontinued Medications Generic Name Dose Route Start Last Admin Trade Name Freq PRN Reason Stop Dose Admin Sodium Chloride 1,000 mls @ 999 mls/hr 08/09/23 09:51 08/09/23 11:34 Ns IV 08/09/23 10:51 Infused .Q1H1M ONE Infusion Morphine Sulfate 1 mg 08/09/23 09:51 08/09/23 10:41 Morphine Sulfate 2 Mg/Ml Cartridge IVPUSH 08/09/23 09:52 1 mg ONCE ONE Administration Protocol Morphine Sulfate 1 mg 08/09/23 09:53 08/09/23 10:41 Morphine Sulfate 2 Mg/Ml Cartridge IVPUSH 08/09/23 09:54 1 mg ONCE ONE Administration Protocol Nitroglycerin 1 inch 08/09/23 09:55 08/09/23 10:41 Nitroglycerin 2 % Oint 1 Gm Packet TRANSDERMA 08/09/23 09:56 1 inch ONCE ONE Administration Discharge Plan Discharge Clinical Impression: Acute cholecystitis, Biliary colic Patient Disposition: Admitted As Inpatient
[2023-08-09 10:15] LABS: MANUAL DIFF FLAG NO
--- NOTE | 2023-08-09 10:15 | PC.NURSE ---
iv established labs drawn ivf infusing. tech obtaining ekg at this time.
[2023-08-09 10:17] LABS: Basophils Absolute Auto 0.1 X10*3/uL (0.0-0.2); Basophils Percent Auto 0.5 % (0-2); Eosinophils Absolute Auto 0.1 X10*3/uL (0.0-0.4); Eosinophils Percent Auto 1.1 % (0-4); Hematocrit 39.7 % (37.0-47.0); Hemoglobin 13.1 g/dl (12.0-16.0); Imm Gran Abs Auto 0.03 X10*3/uL (0.00-0.03); Imm Gran Pct Auto 0.3 % (0.0-0.4); Lymphocytes Absolute Auto 2.2 X10*3/uL (1.2-4.9); Lymphocytes Percent Auto 24.1 % (20-40); Mean Corpuscular Hemoglobin 27.5 pg (27.0-33.0); Mean Corpuscular Volume 83.2 fL (80.0-98.0); Mean Platelet Volume 10.4 fL (9.4-12.3); Monocytes Absolute Auto 0.8 X10*3/uL (0.1-1.2); Monocytes Percent Auto 8.7 % (2-11); Neutrophils Percent Auto 65.3 % (45-73); Platelet Count 278 X10*3/uL (160-400); Red Blood Count 4.77 X10*6/uL (4.20-5.50); Red Cell Distribution Width 14.4 % (11.0-16.0); White Blood Count 9.2 X10*3/uL (4.8-10.8)
[2023-08-09 10:36] LABS: Alanine Aminotransferase 19 U/L (0-31); Albumin Level 4.3 g/dL (3.5-5.0); Alkaline Phosphatase 91 U/L (39-117); Anion Gap 14 (12-20); Aspartate Amino Transferase 23 U/L (5-31); Bilirubin Direct 0.3 mg/dL (0.0-0.5); Bilirubin Total 0.8 mg/dL (0.0-1.0); Blood Urea Nitrogen 19 mg/dL (9-16); Calcium 9.8 mg/dL (8.4-10.2); Carbon Dioxide 22 mmol/L (22-29); Chloride 105 mmol/L (96-108); Creatinine Clr Calc Pharmacy 56.9; Estimated Glomerular Filt Rate 48; Glucose Random 114 mg/dL (60-115); Lipase 15 U/L (8-78); Potassium 3.7 mmol/L (3.3-5.1); Sodium 137 mmol/L (135-145); Total Protein 8.4 g/dL (6.5-8.0)
[2023-08-09] MEDS: Nitroglycerin 2 % Oint 1 GM Packet 1 INCH TRANSDERMA (10:41)
[2023-08-09] MEDS: Morphine Sulfate 2 MG/ML CARTRIDGE 1 MG IVPUSH ×2 (10:41)
[2023-08-09] MEDS: 0.9 % Sodium Chloride 1,000 ML 999 ML IV (10:42)
[2023-08-09 10:46] LABS: Troponin-I High Sensitivity < 2.7 ng/L (<3.5-17.0)
--- NOTE | 2023-08-09 10:50 | PC.NURSE ---
Addendum entered by Mathew Leigh 08/09/23 10:54: nsr on monitor 72 bpm. Original Note: pt medicated per jan. q5 min bp. pt denies cp/sob. u/s at bedside for imaging.
[2023-08-09] MEDS: Piperacillin Sodium/Tazobactam 3.375 GM in 0.9 % Sodium Chloride 50 ML IV (11:42)
[2023-08-09 12:13] LABS: Appearance Urine Clear; Color Urine Yellow; Glucose Urine UA Negative (Negative); Leukocyte Esterase Urine Negative (Negative); Nitrite Urine Negative (Negative); PH 5.5 (5.0-9.0); Specific Gravity - Urine <= 1.005 (1.005-1.025); Urine Blood Negative (Negative); Urine Ketones Negative (Negative); Urine Protein Negative (Neg-Trace)
--- NOTE | 2023-08-09 12:32 | PM.HPGS ---
History of Present Illness History of Present Illness Date of Service: 08/09/23 Chief complaint: R Upper Quadrant Pain To Back Narrative: Nato Goodman is a 62 year old female who is seen with the help of interpretive services since she is [place]ic-speaking only. She reports a history of asthma, obstructive sleep apnea who is noncompliant with her CPAP, obesity, fibromyalgia, history of a left lower extremity DVT who is maintained on Eliquis. Patient relates that 18 years ago, she sustained a left lower leg fracture and required operative intervention. She subsequently developed a DVT and was anticoagulated and required IVC filter placement. The patient's significant other is at the bedside and she gave permission to speak in front of him. She notes that she started to developed RUQ abdominal pain on Tuesday night and I continued to progress in her right upper quadrant and resulted in her presenting to the emergency room. She notes that she forgot to take her Eliquis last night and did not take it this morning. She endorses continued right upper quadrant pain with no difficulty breathing or shortness of breath. Past surgical history includes a tubal ligation and left lower extremity orthopedic procedure complicated by subsequent DVT, IVC filter placement 18 years ago She notes a family history of type 2 diabetes in her immediate family including both parents and siblings Review of Systems Review of Systems: Yes all other systems are reviewed and are negative Constitutional: Constitutional: Reports as per [facility] Past Medical History Medical History Morbid obesity with BMI of 40.0-44.9, adult Pure hypercholesterolemia Exertional dyspnea Fatigue Cough Lumbar degenerative disc disease Phlegmasia cerulea dolens Obstructive sleep apnea COVID-19 Hyperthyroidism Anxiety Insomnia Obstructive sleep apnea Condyloma acuminata Vitamin B12 deficiency 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 Sister No problems noted. Sister No problems noted. Sister No problems noted. Sister No problems noted. Sister No problems noted. Sister No problems noted. Sister No problems noted. Sister No problems noted. Sister No problems noted. Sister No problems noted. Sister No problems noted. Sister No problems noted. Sister No problems noted. Paternal Aunt Colon cancer Son Histiocytosis Son No problems noted. Son No problems noted. Surgical History Surgical History History of embolectomy Benign neoplasm of neck History of colonoscopy History of bilateral tubal ligation History of carpal tunnel release History of bilateral oophorectomy S/P IVC filter Social History Social History Household Members: Family Housing: Apartment Alcohol intake: former Patient Tobacco Use Status: Never used Tobacco Smoked in Last 30 Days: No e-Cigarette/Vaping Use: Never Used Second Hand Smoke Exposure: No Use of substances other than those prescribed or required for medical reasons: No Advance Directives: No Advance Directives Information Provided: Yes service: No Current occupational status: disabled Current occupation: right hand Cognitive needs: Yes (cane) Hearing needs: No Vision needs: Yes Meds Allergies Allergy/AdvReac Type Severity Reaction Status Date / Time No Known Allergies Allergy Verified 06/15/23 09:14 Home Medications Medication Instructions Recorded Confirmed Last Taken Type zolpidem 10 mg tablet (Ambien) 10 mg PO BEDTIME PRN Sleep 09/09/20 06/10/23 Unknown History bimatoprost 0.01 % eye drops 0 drp ophthalmic (eye) DAILY 09/18/21 06/10/23 Unknown History (oRbby) duloxetine 60 mg capsule,delayed 60 mg PO DAILY 11/17/21 06/10/23 Unknown History release acetaminophen 325 mg tablet 325 mg PO DAILY PRN Pain (Scale 01/21/22 06/10/23 Unknown History Score 4-6) lithium carbonate 450 mg 450 mg PO BEDTIME 01/21/22 06/10/23 Unknown History tablet,extended release omeprazole 20 mg capsule,delayed 20 mg PO DAILY 09/14/22 06/10/23 Unknown History release lurasidone 40 mg tablet (Latuda) 40 mg PO BEDTIME 10/11/22 06/10/23 Unknown History venlafaxine 150 mg 150 mg PO QPM 10/11/22 06/10/23 Unknown History capsule,extended release 24 hr chlorhexidine gluconate 0.12 % 0.12 ea PO BID 12/15/22 06/10/23 Unknown History mouthwash dorzolamide 22.3 mg-timolol 6.8 1 drp ophthalmic (eye) DAILY 01/20/23 06/10/23 Unknown History mg/mL eye drops Physical Exam Vital Signs: Vital Signs: Last Vital Signs Temp 97.6 F 08/09/23 09:25 Pulse 96 08/09/23 09:50 Resp 16 08/09/23 09:50 BP 124/77 08/09/23 10:54 Pulse Ox 97 08/09/23 09:50 O2 Del Method Room Air 08/09/23 09:50 BMI result Body Mass Index 40.5 The patient is non-toxic & in good spirits NC/AT, PERRLA, EOMI Mood, affect & judgment all appear appropriate Sclera anicteric conjunctiva pink and moist Oropharynx is clear with no aphthous ulcers, Mallampati class 4, mucous membranes moist Neck is supple with no masses, adenopathy or bruits Thyroid is nontender and free of dominant masses Heart is regular, normal S1-S2 no rubs or murmurs Lungs are clear and equal anteriorly with no audible wheezing, rubs or dullness to percussion No CVA tenderness present Abdomen is obese no demonstrable hernias. RUQ tenderness is present, without R/R/G. Rectal exam is deferred Skin has good turgor and is free of rashes Extremities free of cyanosis clubbing edema Results Results Labs: Short CBC 08/09/23 Range/Units 10:11 WBC 9.2 (4.8-10.8) X10*3/uL Hgb 13.1 (12.0-16.0) g/dl Hct 39.7 (37.0-47.0) % Plt Count 278 (160-400) X10*3/uL BMP 08/09/23 10:11 Sodium 137 Potassium 3.7 Chloride 105 Carbon Dioxide 22 BUN 19 H Creatinine 1.15 Calcium 9.8 Liver Function 08/09/23 Range/Units 10:11 Total Bilirubin 0.8 (0.0-1.0) mg/dL Direct Bilirubin 0.3 (0.0-0.5) mg/dL AST 23 (5-31) U/L ALT 19 (0-31) U/L Alkaline Phosphatase 91 (39-117) U/L Albumin 4.3 (3.5-5.0) g/dL Urine 08/09/23 Range/Units 11:48 Urine Color Yellow Urine Appearance Clear Urine pH 5.5 (5.0-9.0) Ur Specific [place] <= 1.005 (1.005-1.025) Urine Protein Negative (Neg-Trace) mg/dL Urine Glucose (UA) Negative (Negative) mg/dL Abdomen CT scan report/results: pending CT scan - pelvis: pending Abdominal ultrasound report/results: report reviewed and image reviewed Additional studies: CBD 0.5cm on U/S. GB wall thickening & cholelithiasis Assessment and Plan (1) Acute cholecystitis: Status: Acute (2) Biliary colic: Status: Acute (3) Morbid obesity with BMI of 40.0-44.9, adult: Status: Acute (4) Pure hypercholesterolemia: Status: Acute (5) Depression: Qualifiers: Depression Type: major depressive disorder Major depression recurrence: recurrent Active/Remission status: currently active Major depression episode severity: unspecified Qualified Code(s): F33.9 - Major depressive disorder, recurrent, unspecified Status: Acute (6) Obstructive sleep apnea: Status: Acute (7) Current use of anticoagulant therapy: Status: Chronic (8) Phlegmasia cerulea dolens: Qualifiers: Laterality: unspecified laterality Qualified Code(s): I80.209 - Phlebitis and thrombophlebitis of unspecified deep vessels of unspecified lower extremity Status: Acute Plan Via 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 I suspect she either has biliary colic or early acute calculous cholecystitis and explained the safest course of action would be to admit her to the hospital, place her on bowel rest and IV fluid and obtain a CT to assess the degree of inflammation. Since she is on Eliquis, typically 48 hours without anticoagulation is recommended for urgent/elective procedures. If this is biliary colic, it may be possible for her to be discharged assuming her pain resolves, but the risk of recurrence was discussed as well as the fact that we would have an ongoing discussion regarding operative intervention. I briefly reviewed the inherent risks of laparoscopic, possible open cholecystectomy including bleeding, infection need for open surgery. The patient stated that she would like to hold on making any decisions until at least tomorrow. Will ask Medicine to follow along given her comorbidities. Hold Eliquis for now, check CT, check hemoglobin A1c given her obesity in family history. See orders re: antiemteics & pain meds. Hold anticoags; SCDs ordered Time Spent With Patient Time: Total time managing care of this patient today ____ minutes. Quality Stroke Does the patient have a stroke diagnosis?: No VTE Prior VTE?: Yes VTE Risk Level:: Surgical - high VTE Device Contraindication: N/A - Device Ordered VTE Drug Contraindication: N/A - Med Ordered Procedures Date of Service Date of Service: 08/09/23
[2023-08-09] MEDS: iohexoL 350 MG/ML 100 ML INFUS..BTL IV (13:30)
--- NOTE | 2023-08-09 13:45 | P.CONHOSP_ITS ---
History of Present Illness Data of Consult Service Date: 08/09/23 Requesting physician: Sy Jacobson Primary Care Provider: MD ANGY Sotomayor Reason for consult: medical management 62-year-old female with history of mild intermittent asthma, obstructive sleep apnea noncompliant with CPAP, morbid obesity with BMI greater than 40, fibromyalgia, mood disorder, and history of DVT on Eliquis admitted to General surgery for management of acute cholecystitis with biliary colic with consult placed to hospitalist service for medical management. The patient reports last dose of Eliquis was taken last night at 18:00. 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 She is currently reporting tingling in the toes/peripheral neuropathy bilaterally which is chronic, no known history of diabetes but does have history of fibromyalgia. She is reporting right upper quadrant pain as well as nausea. She is afebrile, vital stable. No leukocytosis. She denies any alcohol use, illicit drug use, or cigarette use. Review of Systems 2 Review of Systems: General: No fevers, malaise, unintentional weight loss Cardiovascular: No chest pain, palpitations, or leg edema Respiratory: No shortness of breath, wheezing, cough GI: +abdominal pain, nausea. No vomiting, diarrhea, constipation, melena, hematochezia : No dysuria, hematuria, increased urinary frequency, decreased urinary output MSK: No myalgia, back pain Neuro: No headaches, weakness, paresthesias. +BLE neuropathy Skin: No rashes or lesions [facility] Medical History Morbid obesity with BMI of 40.0-44.9, adult Pure hypercholesterolemia Exertional dyspnea Fatigue Cough Lumbar degenerative disc disease Phlegmasia cerulea dolens Obstructive sleep apnea COVID-19 Hyperthyroidism Anxiety Insomnia Obstructive sleep apnea Condyloma acuminata Vitamin B12 deficiency Lung granuloma Phlegmasia cerulea dolens Chronic low back pain Vitamin D deficiency Obesity (BMI 30-39.9) Fibromyalgia Depression Neuropathy DVT (deep venous thrombosis) Asthma DDD (degenerative disc disease) Family History Father Liver cirrhosis Cancer Mother Heart attack Coronary artery disease Asthma Diabetes mellitus Brother No problems noted. Sister No problems noted. Sister No problems noted. Sister No problems noted. Sister No problems noted. Sister No problems noted. Sister No problems noted. Sister No problems noted. Sister No problems noted. Sister No problems noted. Sister No problems noted. Sister No problems noted. Sister No problems noted. Sister No problems noted. Paternal Aunt Colon cancer Son Histiocytosis Son No problems noted. Son No problems noted. Surgical History History of embolectomy Benign neoplasm of neck History of colonoscopy History of bilateral tubal ligation History of carpal tunnel release History of bilateral oophorectomy S/P IVC filter Social History Household Members: Family Housing: Apartment Alcohol intake: former Patient Tobacco Use Status: Never used Tobacco Smoked in Last 30 Days: No e-Cigarette/Vaping Use: Never Used Second Hand Smoke Exposure: No Use of substances other than those prescribed or required for medical reasons: No Advance Directives: No Advance Directives Information Provided: Yes service: No Current occupational status: disabled Current occupation: right hand Cognitive needs: Yes (cane) Hearing needs: No Vision needs: Yes Meds Allergies Allergy/AdvReac Type Severity Reaction Status Date / Time No Known Allergies Allergy Verified 06/15/23 09:14 Active Medications: Current Medications Acetaminophen (Acetaminophen 325 Mg Tablet) 975 mg PO Q6H PRN PRN Reason: Pain, Mild (Pain Scale 1-3) Hydromorphone HCl (Hydromorphone Hcl 0.5 Mg/0.5 Ml Syringe) 0.25 mg IVPUSH Q2H PRN; Protocol PRN Reason: Pain, Moderate(Pain Scale 4-6) Lactated Ringer's (Lr) 1,000 mls @ 100 mls/hr IVCONT .Q10H EVELYN Ondansetron HCl (Ondansetron Hcl 4 Mg/2 Ml Vial) 4 mg IVPUSH Q6H PRN PRN Reason: Nausea and Vomiting Home Medications Medication Instructions Recorded Confirmed Last Taken Type zolpidem 10 mg tablet (Ambien) 10 mg PO BEDTIME PRN Sleep 09/09/20 06/10/23 Unknown History bimatoprost 0.01 % eye drops 0 drp ophthalmic (eye) DAILY 09/18/21 06/10/23 Unknown History ([place]) duloxetine 60 mg capsule,delayed 60 mg PO DAILY 11/17/21 06/10/23 Unknown History release acetaminophen 325 mg tablet 325 mg PO DAILY PRN Pain (Scale 01/21/22 06/10/23 Unknown History Score 4-6) lithium carbonate 450 mg 450 mg PO BEDTIME 01/21/22 06/10/23 Unknown History tablet,extended release omeprazole 20 mg capsule,delayed 20 mg PO DAILY 09/14/22 06/10/23 Unknown History release lurasidone 40 mg tablet (Latuda) 40 mg PO BEDTIME 10/11/22 06/10/23 Unknown History venlafaxine 150 mg 150 mg PO QPM 10/11/22 06/10/23 Unknown History capsule,extended release 24 hr chlorhexidine gluconate 0.12 % 0.12 ea PO BID 12/15/22 06/10/23 Unknown History mouthwash dorzolamide 22.3 mg-timolol 6.8 1 drp ophthalmic (eye) DAILY 01/20/23 06/10/23 Unknown History mg/mL eye drops Physical Exam 2 Vital Signs and Narrative: Vital Signs: Last Vital Signs Temp 97.6 F 08/09/23 09:25 Pulse 96 08/09/23 09:50 Resp 16 08/09/23 09:50 BP 124/77 08/09/23 10:54 Pulse Ox 97 08/09/23 09:50 O2 Del Method Room Air 08/09/23 09:50 BMI result Body Mass Index 40.5 Constitutional - Awake and Alert, No apparent distress Eyes - PERRLA, EOMI Cardiovascular - S1S2, RRR, No edema Respiratory - Normal lung expansion, Normal respiratory effort, No respiratory distress, CTA bilaterally Extremities - no calf tenderness bilaterally, no swelling Skin - Warm/Dry Neurological - Alert & oriented x3 Psychological - Appropriate affect Results Labs 08/09/23 10:11 08/09/23 10:11 Labs: Laboratory Results - last 24 hr 08/09/23 08/09/23 10:11 11:48 MCV 83.2 MCH 27.5 MCHC 33.0 RDW 14.4 Plt Count 278 MPV 10.4 Immature Gran % (Auto) 0.3 Neut % (Auto) 65.3 Lymph % (Auto) 24.1 [place] % (Auto) 8.7 Eos % (Auto) 1.1 Baso % (Auto) 0.5 Lymph # (Auto) 2.2 [place] # (Auto) 0.8 Eos # (Auto) 0.1 Baso # (Auto) 0.1 Abs Immat Gran (auto) 0.03 Absolute Neuts (auto) 6.0 Absolute Nucleated RBC 0.000 Nucleated RBC % (auto) 0.0 Anion Gap 14 Estim Creat Clear Calc 56.9 Estimated GFR 48 Random Glucose 114 Calcium 9.8 Total Bilirubin 0.8 Direct Bilirubin 0.3 AST 23 ALT 19 Alkaline Phosphatase 91 Total Protein 8.4 H Albumin 4.3 Lipase 15 Urine Color Yellow Urine Appearance Clear Urine pH 5.5 Ur Specific [employer] <= 1.005 Urine Protein Negative Urine Glucose (UA) Negative Urine Ketones Negative Urine Blood Negative Urine Nitrite Negative Ur Leukocyte Esterase Negative Imaging Radiologist's Impressions: Impressions Abdomen Ultrasound 08/09/23 10:52 IMPRESSION: Impacted gallbladder neck stone with gallbladder distention, wall thickening and right upper quadrant tenderness suspicious for acute cholecystitis. Assessment and Plan (1) Biliary colic: Status: Acute (2) Acute cholecystitis: Status: Acute Plan 62-year-old female with history of mild intermittent asthma, obstructive sleep apnea noncompliant with CPAP, morbid obesity with BMI greater than 40, fibromyalgia, mood disorder, and history of DVT on Eliquis admitted to General surgery for management of acute cholecystitis with biliary colic with consult placed to hospitalist service for medical management. #Acute cholecystitis -plan for general surgery -hold Eliquis # chronic DVT left lower extremity -s/p IVC filter -hold Eliquis. Hold on anticoagulation at this time per General surgery as patient may undergo surgical procedure. Re-evaluate resuming anticoagulation tomorrow morning # obstructive sleep apnea -noncompliant with CPAP -education on the importance of CPAP use provided -weight loss encouraged # mood disorder/fibromyalgia -continue home meds # HLD -continue statin # mild intermittent asthma -no acute exacerbation -continue maintenance inhalers, albuterol p.r.n. Thank you for this consult, will continue following. Time Spent With Patient Time: Total time managing care of this patient today ____ minutes.
[2023-08-09] MEDS: Lactated Ringers 1,000 ML 100 ML IVCONT ×2 (14:18→23:29)
[2023-08-09] MEDS: ondansetron HCL 4 MG/2 ML VIAL IVPUSH ×2 (14:18→20:50)
--- NOTE | 2023-08-09 15:47 | PHA.MEDREC ---
Pharmacy Consult ? Medication Reconciliation Pharmacy has completed the medication reconciliation. Patient confirmed medications. Kristyn Pearl, JungD
[2023-08-09 16:07] LABS: Estimated Average Glucose 103 mg/dL; Hemoglobin A1c % 5.2 % (<6.0)
--- NOTE | 2023-08-09 16:07 | PC.NURSE ---
Attempted call report at 1530 nurse unavailable, report given to RN at 1607, transport messaged.
[2023-08-09] MEDS: Zolpidem Tartrate 5 MG TABLET PO (20:27)
[2023-08-09] MEDS: Gabapentin 600 MG TABLET PO (20:27)
[2023-08-09] MEDS: HYDROmorphone HCl 0.5 MG/0.5 ML SYRINGE 0.25 MG IVPUSH (20:28)
[2023-08-09] MEDS: Latanoprost 0.005 % Ophth Sol 2.5 ML DROPS 1 DROP EYE-BOTH (20:29)
[2023-08-09] MEDS: Albuterol Sulfate 90 MCG 8 GM INHALER 2 PUFF INHALE (20:32)
[2023-08-10] VITALS (18 sets, daily range): BP systolic 110–170; BP diastolic 59–91; PULSE 60–87; RESP 16–20; TEMP 36–37; O2SAT 95–100
[2023-08-10 06:30] LABS: Basophils Percent Auto 0.5 % (0-2); Eosinophils Absolute Auto 0.1 X10*3/uL (0.0-0.4); Eosinophils Percent Auto 1.1 % (0-4); Hematocrit 34.6 % (37.0-47.0); Hemoglobin 11.1 g/dl (12.0-16.0); Imm Gran Abs Auto 0.02 X10*3/uL (0.00-0.03); Imm Gran Pct Auto 0.2 % (0.0-0.4); Lymphocytes Absolute Auto 2.4 X10*3/uL (1.2-4.9); Lymphocytes Percent Auto 29.6 % (20-40); MANUAL DIFF FLAG NO; Mean Corpuscular HGB Conc 32.1 g/dl (31.0-35.0); Mean Corpuscular Hemoglobin 27.2 pg (27.0-33.0); Mean Corpuscular Volume 84.8 fL (80.0-98.0); Mean Platelet Volume 11.3 fL (9.4-12.3); Monocytes Absolute Auto 0.8 X10*3/uL (0.1-1.2); Monocytes Percent Auto 9.5 % (2-11); Neutrophils Absolute Auto 4.8 x10*3/uL (2.0-8.3); Neutrophils Percent Auto 59.1 % (45-73); Platelet Count 239 X10*3/uL (160-400); Red Blood Count 4.08 X10*6/uL (4.20-5.50); Red Cell Distribution Width 14.4 % (11.0-16.0); White Blood Count 8.1 X10*3/uL (4.8-10.8)
--- NOTE | 2023-08-10 06:37 | MHC.SHP ---
Pre-Procedural Eval Section A Date of Service: 08/10/23 The patient is an INPATIENT: Yes The History & Physical has been completed within 30 days and I have reviewed it.: Yes Section B Chief Complaint: Biliary colic Allergies: Allergies Allergy/AdvReac Type Severity Reaction Status Date / Time No Known Allergies Allergy Verified 06/15/23 09:14 Plan I have reviewed the history and physical and performed a pertinent physical examination on my patient. No changes have occurred unless specified. Time Spent With Patient Time: Total time managing care of this patient today ____ minutes.
--- NOTE | 2023-08-10 06:38 | W.PM.OPN ---
Operative Note Operative Note Date of Service: 08/10/23 Narrative: Preop diagnosis: [Acute calculus cholecystitis, h/o LLE DVT on Eliquis] Postop diagnosis: [Same, left upper quadrant adhesions, hepatomegaly and fatty liver] Procedure: [Laparoscopic cholecystectomy with lysis of adhesions] Surgeon: Sy Jacobson MD Assist: [Marylin Farris PA-C] Anesthesia: [GET, bupivicaine, 0.5%] Estimated blood loss: [100cc] Specimen: [1) GB fluid; 2) GB & contents] Drain: SARABJIT in Morison's pouch Intraoperative findings: [ NAFLD, enlarged liver & intrahepatic GB & RUQ adhesions; Cystic duct 4mm, cystic artery 3mm] Indications: [The patient is a 62-year-old woman Romansh-speaking woman seen with the help of interpretive services with a history of an extensive left lower extremity DVT 18 years ago that occurred after an orthopedic injury and operations. The patient presented 18 years ago with extensive DVT requiring transfer and operative embolectomy for phlegmasia cerulea dolens and has been maintained on anticoagulation since that time. The patient has been maintained on anticoagulant, rigidly warfarin which was switched to Eliquis due to therapeutic difficulties with warfarin. She has had recurring episodes of lower chest pain and the most recent episode started several days ago in the right upper quadrant. While the patient's labs including liver function tests remain normal, ultrasound and CT are consistent with early calculous cholecystitis. During admission, the patient had progression of her pain and operative intervention was necessary today due to concerns of ongoing inflammation increasing her risk for open surgery. Via pewter finisher, options were reviewed with the patient and I recommended proceeding with laparoscopic cholecystectomy, possible open cholecystectomy and possible intraoperative cholangiogram. I also reviewed the inherent risks to surgery which include, but are not limited to: Bleeding that could require another operation or blood transfusion, her increased risk due to Eliquis which was stopped Tuesday night (last dose 08/08, Tuesday morning) the need for open surgery, the unlikely but possible issue of bile leak or choledocholithiasis that could require an ERCP, the unlikely but possible risk of common bile duct injury which would require transfer to a larger institution for another operation. Patient seemed to understand her options, declined a 2nd opinion and wants to proceed.] Procedure: [The patient was identified in preoperative holding and again in the operating room 3 and placed supine on the table. An appropriate time-out was performed and preemptive local used at all trocar insertion sites. The patient's body habitus precluded entry supraumbilical midline due to a very deep skin fold we immediately above the umbilicus so the Veress needle through a LUQ stab incision. An appropriate drop test was performed. The needle was connected to high flow and opening pressures were 7 mmHg. A pneumoperitoneum of 15 mmHg was then obtained using carbon dioxide. Preemptive local infiltrated into the skin and subcutaneous tissues the supraumbilical midline and a transverse incision made. Dissection with a hemostat was carried through the subcutaneous tissues to the anterior fascia and the abdomen accessed with the 30 degree 5mm scope with Optiview trocar technique. The Veress needle insertion site was carefully examined for injury from the needle and none was found,so the needle was then removed. Next a a 5 mm epigastric and two 5 mm right subcostal ports were placed with preemptive analgesia under direct laparoscopic vision without incident and the supraumbilical trocar upsized to a 12 mm trocar under direct laparoscopic vision. The gallbladder was clearly identified and tense requiring needle decompression to facilitate the procedure. The hydrops fluid was sent for Gram stain and culture. Next, the gallbladder was grasped by its fundus. It was retracted cranially and anteriorly and dissection began in the lateral cystic triangle. Adhesions to the right upper quadrant from the omentum in liver were present which required a lysis of adhesions for 30 minutes. The patient's enlarged fatty liver, intrahepatic gallbladder and body habitus made the dissection challenging. The cystic duct was identified at its junction on the gallbladder and dissection carried medially, then circumferentially using the [place] dissector and hook. The cystic artery was then carefully identified and circumferentially dissected. Once dissection of both structures was complete and the critical view of safety demonstrated, the duct and artery were double clipped proximally and once distally and sharply divided. Electrocautery was used to remove the gallbladder from its fossa on the liver. Liver bed was inspected for hemostasis and the clips were noted to be on the respective structures. The gallbladder was placed in an Endo-Catch bag and delivered through the umbilicus under direct laparoscopic vision. The gallbladder was clearly identified and grasped by its fundus. It was retracted cranially and anteriorly and dissection began in the lateral cystic triangle. The cystic duct was identified at its junction on the gallbladder and dissection carried medially, then circumferentially using the [place] dissector and hook. The cystic artery was then carefully identified and circumferentially dissected. Once dissection of both structures was complete and the critical view of safety demonstrated, the duct and artery were double clipped proximally and once distally and sharply divided. Electrocautery and LigaSure or was used to remove the gallbladder from its fossa on the liver; there was a diffuse ooze from the liver and significant smoke that made progress slow. Liver bed was inspected for hemostasis and the clips were noted to be on the respective structures. The gallbladder was placed in an Endo-Catch bag and delivered through the umbilicus under direct laparoscopic vision. The abdomen was again inspected with the laparoscoped and a abdomen deflated to assess for hemostasis. While the field was hemostatic, given the significant inflammation and ongoing need for anticoagulation, a round SARABJIT drain was placed in Morison's pouch. The patient was returned to neutral position, the abdomen deflated and the fascia of the supraumbilical incision closed with interrupted Vicryl sutures and a Tyler-Aicha suture Passer.. Skin was closed with 4-0 Monocryl subcuticular sutures. Mastisol and Steri-Strips were applied followed by Band-Aids. The patient tolerated the procedure well and was extubated recovered in stable condition. All sponge instrument counts were correct.
[2023-08-10 06:50] LABS: Alanine Aminotransferase 17 U/L (0-31); Albumin Level 3.7 g/dL (3.5-5.0); Alkaline Phosphatase 79 U/L (39-117); Anion Gap 15 (12-20); Aspartate Amino Transferase 25 U/L (5-31); Bilirubin Total 0.8 mg/dL (0.0-1.0); Blood Urea Nitrogen 16 mg/dL (9-16); Calcium 9.2 mg/dL (8.4-10.2); Carbon Dioxide 20 mmol/L (22-29); Chloride 109 mmol/L (96-108); Creatinine Clr Calc Pharmacy 80.8; Estimated Glomerular Filt Rate > 60; Glucose Random 80 mg/dL (60-115); Potassium 3.8 mmol/L (3.3-5.1); Sodium 140 mmol/L (135-145)
--- NOTE | 2023-08-10 07:38 | P.PNGS_ITS ---
Subjective Subjective Date of Service: 08/10/23 Patient reports: still having pain, nausea and vomiting Interval history: The patient is seen with the help of interpretive services. She reports nausea and some vomiting from IV Dilaudid. She is taking Zofran but endorses ongoing pain. She denies any other new symptoms. We discussed her emergency room evaluation on July 21 for chest pain, which she states was a different presentation. Physical Exam 2 Vital Signs: Vital Signs: Last Vital Signs Temp 97.3 F 08/10/23 00:15 Pulse 65 08/10/23 00:15 Resp 16 08/10/23 00:15 BP 128/63 08/10/23 00:15 Pulse Ox 98 08/10/23 00:15 O2 Del Method Room Air 08/10/23 00:15 BMI result Body Mass Index 40.5 On exam she is comfortable but nontoxic She is anicteric She is in no acute respiratory distress Abdomen has the same amount of pain is when evaluated last night, no diffuse peritoneal sign is noted Objective Data Active Medications Acetaminophen (Acetaminophen 325 Mg Tablet) 975 mg PO Q6H PRN PRN Reason: Pain, Mild (Pain Scale 1-3) Albuterol Sulfate (Albuterol Sulfate (0.083%) 2.5 Mg/3 Ml Vial.Neb) 2.5 mg INHALE QID PRN PRN Reason: shortness of breath or wheezing Albuterol Sulfate (Albuterol Sulfate 90 Mcg 8 Gm Inhaler) 2 puff INHALE Q6H PRN PRN Reason: shortness of breath or wheezing Last Admin: 08/09/23 20:32 Dose: 2 puff Documented By: GUSTABO Atorvastatin Calcium (Atorvastatin Calcium 80 Mg Tablet) 80 mg PO DAILY [facility] Cyanocobalamin (Cyanocobalamin (Vitamin B-12) 1,000 Mcg Tablet) 1,000 mcg PO DAILY [facility] Dorzolamide/Timolol (Dorzolamide/Timolo 2.23%/0.68% 10 Ml Drbtl) 1 drop EYE- BOTH DAILY [facility] Ergocalciferol (Ergocalciferol (Vitamin D2) 1,250 Mcg Capsule) 1,250 mcg PO Mo@0900 [facility] Fluticasone Propionate (Fluticasone Propionate 250 Mcg Blst.W.Dev) 2 puff INHALE RBID [facility] Last Admin: 08/09/23 20:01 Dose: Not Given Documented By: MISSAEL Non-Admin Reason: Patient Refused Gabapentin (Gabapentin 600 Mg Tablet) 600 mg PO TID [facility] Last Admin: 08/09/23 20:27 Dose: 600 mg Documented By: GUSTABO Hydromorphone HCl (Hydromorphone Hcl 0.5 Mg/0.5 Ml Syringe) 0.25 mg IVPUSH Q2H PRN; Protocol PRN Reason: Pain, Moderate(Pain Scale 4-6) Last Admin: 08/09/23 20:28 Dose: 0.25 mg Documented By: GUSTABO Lactated Ringer's (Lr) 1,000 mls @ 100 mls/hr IVCONT .Q10H [facility] Last Admin: 08/09/23 23:29 Dose: 100 mls/hr Documented By: GUSTABO Cefazolin Sodium/Dextrose (Ancef) 2 gm in 50 mls @ 100 mls/hr IV ONCE ONE Stop: 08/10/23 11:29 Latanoprost (Latanoprost 0.005 % Ophth Tram 2.5 Ml Drops) 1 drop EYE-BOTH BEDTIME [facility] Last Admin: 08/09/23 20:29 Dose: 1 drop Documented By: GUSTABO Callery Carbonate ([place]ery Carbonate Er 450 Mg Tablet.Er) 450 mg PO BID [facility] Last Admin: 08/09/23 20:35 Dose: Not Given Documented By: GUSTABO Non-Admin Reason: Patient Refused Lorazepam (Lorazepam 0.5 Mg Tablet) 0.5 mg PO DAILY PRN PRN Reason: Anxiety Lurasidone HCl (Lurasidone Hcl 40 Mg Tablet) 40 mg PO BEDTIME [facility] Last Admin: 08/09/23 20:33 Dose: Not Given Documented By: GUSTABO Non-Admin Reason: Patient Refused Omeprazole (Omeprazole 20 Mg Capsule.Dr) 20 mg PO DAILY PRN PRN Reason: Acid Reflux Ondansetron HCl (Ondansetron Hcl 4 Mg/2 Ml Vial) 4 mg IVPUSH Q6H PRN PRN Reason: Nausea and Vomiting Last Admin: 08/09/23 20:50 Dose: 4 mg Documented By: GUSTABO Venlafaxine HCl (Venlafaxine Hcl Er 150 Mg Cap.Er.24h) 150 mg PO DAILY@1800 [facility] Last Admin: 08/09/23 17:15 Dose: Not Given Documented By: AASHISH Non-Admin Reason: Patient Refused Zolpidem Tartrate (Zolpidem Tartrate 5 Mg Tablet) 5 mg PO BEDTIME [facility] Last Admin: 08/09/23 20:27 Dose: 5 mg Documented By: GUSTABO Labs 08/10/23 05:40 08/10/23 05:40 Labs: Laboratory Results - last 24 hr 08/09/23 08/09/23 08/10/23 10:11 11:48 05:40 MCV 83.2 84.8 MCH 27.5 27.2 MCHC 33.0 32.1 RDW 14.4 14.4 Plt Count 278 239 MPV 10.4 11.3 Immature Gran % (Auto) 0.3 0.2 Neut % (Auto) 65.3 59.1 Lymph % (Auto) 24.1 29.6 [place] % (Auto) 8.7 9.5 Eos % (Auto) 1.1 1.1 Baso % (Auto) 0.5 0.5 Lymph # (Auto) 2.2 2.4 [place] # (Auto) 0.8 0.8 Eos # (Auto) 0.1 0.1 Baso # (Auto) 0.1 0.0 Abs Immat Gran (auto) 0.03 0.02 Absolute Neuts (auto) 6.0 4.8 Absolute Nucleated RBC 0.000 0.000 Nucleated RBC % (auto) 0.0 0.0 Anion Gap 14 15 Estim Creat Clear Calc 56.9 80.8 Estimated GFR 48 > 60 Random Glucose 114 80 Estimat Average Glucose 103 Hemoglobin A1c % 5.2 Calcium 9.8 9.2 D Total Bilirubin 0.8 0.8 Direct Bilirubin 0.3 AST 23 25 ALT 19 17 Alkaline Phosphatase 91 79 Total Protein 8.4 H 7.0 Albumin 4.3 3.7 Lipase 15 Urine Color Yellow Urine Appearance Clear Urine pH 5.5 Ur Specific [place] <= 1.005 Urine Protein Negative Urine Glucose (UA) Negative Urine Ketones Negative Urine Blood Negative Urine Nitrite Negative Ur Leukocyte Esterase Negative Blood Type O Positive Antibody Screen NEGATIVE Imaging CT scan - abdomen: My impression: Both the patient's abdominal ultrasound and CT showed thickening of the gallbladder wall consistent with early calculous cholecystitis. While the patient's wbc & LFTs remain normal, her ongoing pain and diagnostic imaging is likely consistent with early acute cholecystitis and delaying surgery may distorted anatomy increasing the risk for open cholecystectomy. Radiologist's impression: Impressions Abdomen Ultrasound 08/09/23 10:52 IMPRESSION: Impacted gallbladder neck stone with gallbladder distention, wall thickening and right upper quadrant tenderness suspicious for acute cholecystitis. Abdomen/Pelvis CT 08/09/23 13:30 IMPRESSION: 1. Distended gallbladder with associated wall thickening and edema. In conjunction with the sonographically detected calculi, the findings are compatible with acute cholecystitis. 2. Fluid in the cul-de-sac, presumably the sequela of the upper abdominal inflammatory process. 3. Left lung base calcified granuloma. 4. The above urgent findings were reported at the time of interpretation on 08/09/2023 at 2:[address] Penaloza. Fleischner guidelines were followed. Procedures Date of Service Date of Service: 08/10/23 Progress Note: A&P Assessment and plan (1) Acute cholecystitis: Status: Acute (2) Current use of anticoagulant therapy: Status: Acute (3) Obstructive sleep apnea: Status: Acute (4) Pure hypercholesterolemia: Status: Acute (5) Morbid obesity with BMI of 40.0-44.9, adult: Status: Acute Plan Via community relations representative, I reviewed the plan for a laparoscopic, possible open cholecystectomy and reviewed the risks of possible need for open surgery, possible need for a temporary drain. Patient noted that she had no questions after reviewing and signing the operative consent yesterday in which I reviewed the risks of possible need for blood transfusion if her Eliquis and fatty liver contributes to bleeding, choledocholithiasis at bile duct injury and bile leak were also reviewed. The patient stated her questions seemed to be satisfactorily answered and would like to proceed with laparoscopic cholecystectomy today. Continue NPO except for meds. Preoperative Ancef is ordered, 2 g to be given telecommunication lines repairer to surgery, have patient void her bladder telecommunication lines repairer to surgery. Minimized narcotics given nausea/vomiting and you Zofran is ordered regarding nausea. Time Spent With Patient Time: Total time managing care of this patient today ____ minutes. Quality Stroke Does the patient have a stroke diagnosis?: No VTE Prior VTE?: Yes VTE Risk Level:: Surgical - high VTE Device Contraindication: N/A - Device Ordered VTE Drug Contraindication: N/A - Med Ordered
[2023-08-10] MEDS: Fluticasone Propionate 250 MCG BLST.W.DEV 2 PUFF INHALE ×2 (07:44→19:42)
--- NOTE | 2023-08-10 08:54 | P.PNIM_ITS ---
Subjective Subjective Date of Service: 08/10/23 Interval History: abd pain Physical Exam 2 Vital Signs: Vital Signs: Last Vital Signs Temp 98.4 F 08/10/23 07:36 Pulse 60 08/10/23 07:36 Resp 18 08/10/23 07:46 BP 121/59 L 08/10/23 07:36 Pulse Ox 98 08/10/23 07:36 O2 Del Method Room Air 08/10/23 07:36 BMI result Body Mass Index 40.5 On exam she is comfortable but nontoxic She is anicteric She is in no acute respiratory distress Abdomen has the same amount of pain is when evaluated last night, no diffuse peritoneal sign is noted Objective Data Active Medications Acetaminophen (Acetaminophen 325 Mg Tablet) 975 mg PO Q6H PRN PRN Reason: Pain, Mild (Pain Scale 1-3) Albuterol Sulfate (Albuterol Sulfate (0.083%) 2.5 Mg/3 Ml Vial.Neb) 2.5 mg INHALE QID PRN PRN Reason: shortness of breath or wheezing Albuterol Sulfate (Albuterol Sulfate 90 Mcg 8 Gm Inhaler) 2 puff INHALE Q6H PRN PRN Reason: shortness of breath or wheezing Last Admin: 08/09/23 20:32 Dose: 2 puff Documented By: GUSTABO Atorvastatin Calcium (Atorvastatin Calcium 80 Mg Tablet) 80 mg PO DAILY [facility] Cyanocobalamin (Cyanocobalamin (Vitamin B-12) 1,000 Mcg Tablet) 1,000 mcg PO DAILY [facility] Dorzolamide/Timolol (Dorzolamide/Timolo 2.23%/0.68% 10 Ml Drbtl) 1 drop EYE- BOTH DAILY [facility] Ergocalciferol (Ergocalciferol (Vitamin D2) 1,250 Mcg Capsule) 1,250 mcg PO Mo@0900 [facility] Fluticasone Propionate (Fluticasone Propionate 250 Mcg Blst.W.Dev) 2 puff INHALE RBID [facility] Last Admin: 08/10/23 07:44 Dose: 2 puff Documented By: [place]ON Gabapentin (Gabapentin 600 Mg Tablet) 600 mg PO TID [facility] Last Admin: 08/09/23 20:27 Dose: 600 mg Documented By: GUSTABO Hydromorphone HCl (Hydromorphone Hcl 0.5 Mg/0.5 Ml Syringe) 0.25 mg IVPUSH Q2H PRN; Protocol PRN Reason: Pain, Moderate(Pain Scale 4-6) Last Admin: 08/09/23 20:28 Dose: 0.25 mg Documented By: GUSTABO Lactated Ringer's (Lr) 1,000 mls @ 100 mls/hr IVCONT .Q10H [facility] Last Admin: 08/09/23 23:29 Dose: 100 mls/hr Documented By: GUSTABO Cefazolin Sodium/Dextrose (Ancef) 2 gm in 50 mls @ 100 mls/hr IV ONCE ONE Stop: 08/10/23 11:29 Latanoprost (Latanoprost 0.005 % Ophth Tram 2.5 Ml Drops) 1 drop EYE-BOTH BEDTIME [facility] Last Admin: 08/09/23 20:29 Dose: 1 drop Documented By: GUSTABO [place] Carbonate ([place] Carbonate Er 450 Mg Tablet.Er) 450 mg PO BID [facility] Last Admin: 08/09/23 20:35 Dose: Not Given Documented By: GUSTABO Non-Admin Reason: Patient Refused Lorazepam (Lorazepam 0.5 Mg Tablet) 0.5 mg PO DAILY PRN PRN Reason: Anxiety Lurasidone HCl (Lurasidone Hcl 40 Mg Tablet) 40 mg PO BEDTIME [facility] Last Admin: 08/09/23 20:33 Dose: Not Given Documented By: GUSTABO Non-Admin Reason: Patient Refused Omeprazole (Omeprazole 20 Mg Capsule.Dr) 20 mg PO DAILY PRN PRN Reason: Acid Reflux Ondansetron HCl (Ondansetron Hcl 4 Mg/2 Ml Vial) 4 mg IVPUSH Q6H PRN PRN Reason: Nausea and Vomiting Last Admin: 08/09/23 20:50 Dose: 4 mg Documented By: GUSTABO Venlafaxine HCl (Venlafaxine Hcl Er 150 Mg Cap.Er.24h) 150 mg PO DAILY@1800 [facility] Last Admin: 08/09/23 17:15 Dose: Not Given Documented By: AASHISH Non-Admin Reason: Patient Refused Zolpidem Tartrate (Zolpidem Tartrate 5 Mg Tablet) 5 mg PO BEDTIME [facility] Last Admin: 08/09/23 20:27 Dose: 5 mg Documented By: HO.OZORALB Labs 08/10/23 05:40 08/10/23 05:40 Labs: Laboratory Results - last 24 hr 08/09/23 08/09/23 08/10/23 10:11 11:48 05:40 MCV 83.2 84.8 MCH 27.5 27.2 MCHC 33.0 32.1 RDW 14.4 14.4 Plt Count 278 239 MPV 10.4 11.3 Immature Gran % (Auto) 0.3 0.2 Neut % (Auto) 65.3 59.1 Lymph % (Auto) 24.1 29.6 [place] % (Auto) 8.7 9.5 Eos % (Auto) 1.1 1.1 Baso % (Auto) 0.5 0.5 Lymph # (Auto) 2.2 2.4 [place] # (Auto) 0.8 0.8 Eos # (Auto) 0.1 0.1 Baso # (Auto) 0.1 0.0 Abs Immat Gran (auto) 0.03 0.02 Absolute Neuts (auto) 6.0 4.8 Absolute Nucleated RBC 0.000 0.000 Nucleated RBC % (auto) 0.0 0.0 Anion Gap 14 15 Estim Creat Clear Calc 56.9 80.8 Estimated GFR 48 > 60 Random Glucose 114 80 Estimat Average Glucose 103 Hemoglobin A1c % 5.2 Calcium 9.8 9.2 D Total Bilirubin 0.8 0.8 Direct Bilirubin 0.3 AST 23 25 ALT 19 17 Alkaline Phosphatase 91 79 Total Protein 8.4 H 7.0 Albumin 4.3 3.7 Lipase 15 Urine Color Yellow Urine Appearance Clear Urine pH 5.5 Ur Specific [place] <= 1.005 Urine Protein Negative Urine Glucose (UA) Negative Urine Ketones Negative Urine Blood Negative Urine Nitrite Negative Ur Leukocyte Esterase Negative Blood Type O Positive Antibody Screen NEGATIVE Assessment and Plan (1) Biliary colic: Status: Acute Plan 62F PMH mild intermitted asthma, josette, morbid obesity, mood disorder, history of DVT, admitted for acute cholecystitis acute cholecystitis management per surgery chronic dvt LLE s/p ivc filter restart eliquis when okay from surgical perspective josette cpap morbid obesity weight loss hld statin mood disorder lithium, effexor mild intermittent asthma albuterol prn please recall if needed Time Spent With Patient Time: Total time managing care of this patient today ____ minutes. Quality Stroke Does the patient have a stroke diagnosis?: No VTE Prior VTE?: Yes VTE Risk Level:: Surgical - high VTE Device Contraindication: N/A - Device Ordered VTE Drug Contraindication: N/A - Med Ordered
[2023-08-10] MEDS: ondansetron HCL 4 MG/2 ML VIAL IVPUSH (09:43)
[2023-08-10] MEDS: Dorzolamide/Timolo 2.23%/0.68% 10 ML DRBTL 1 DROP EYE-BOTH (09:45)
[2023-08-10 10:22] LABS: Lithium < 0.10 mmol/L (0.60-1.20)
--- NOTE | 2023-08-10 10:42 | HO.ANESPROP2 ---
[facility] Active Problems Active Problems: All Active Problems (Updated 08/09/23 @ 11:41 by Sheri Penaloza MD) Biliary colic (Acute) Acute cholecystitis (Acute) Condyloma acuminata (Acute) Trigger finger, left ring finger (Acute) Carpal tunnel syndrome of right wrist (Acute) Cervical cancer screening (Acute) Breast cancer screening by mammogram (Acute) Hoarseness (Acute) Pain in both feet (Acute) Voice hoarseness (Acute) Throat pain (Acute) Stasis edema of both lower extremities (Acute) Pain and swelling of right knee (Acute) Elevated blood pressure reading (Acute) Annual physical exam (Acute) Morbid obesity with BMI of 40.0-44.9, adult (Acute) Impacted cerumen of both ears (Acute) Right-sided low back pain with sciatica (Acute) Paresthesia of right thumb (Acute) Visit for suture removal (Acute) Laceration of right thumb (Acute) Left leg pain (Acute) Vitamin D deficiency (Acute) Vitamin B12 deficiency (Acute) Pure hypercholesterolemia (Acute) Depression (Acute) Anxiety (Acute) Neuropathy (Acute) Fibromyalgia (Acute) Exertional dyspnea (Acute) Fatigue (Acute) Cough (Acute) Asthma (Acute) Lumbar degenerative disc disease (Acute) BMI 38.0-38.9,adult (Acute) Phlegmasia cerulea dolens (Acute) Obstructive sleep apnea (Acute) COVID-19 (Acute) Bronchitis (Acute) Obesity (BMI 30-39.9) (Acute) Current use of anticoagulant therapy (Acute) Current use of anticoagulant therapy (Chronic) Past Medical History Medical History Morbid obesity with BMI of 40.0-44.9, adult Pure hypercholesterolemia Exertional dyspnea Fatigue Cough Lumbar degenerative disc disease Phlegmasia cerulea dolens Obstructive sleep apnea COVID-19 Hyperthyroidism Anxiety Insomnia Obstructive sleep apnea Condyloma acuminata Vitamin B12 deficiency 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 Sister No problems noted. Sister No problems noted. Sister No problems noted. Sister No problems noted. Sister No problems noted. Sister No problems noted. Sister No problems noted. Sister No problems noted. Sister No problems noted. Sister No problems noted. Sister No problems noted. Sister No problems noted. Sister No problems noted. Paternal Aunt Colon cancer Son Histiocytosis Son No problems noted. Son No problems noted. 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) Alcohol intake: former Patient Tobacco Use Status: Never used Tobacco e-Cigarette/Vaping Use: Never Used Second Hand Smoke Exposure: No service: No Current occupational status: disabled Current occupation: right hand Cognitive needs: Yes (cane) Hearing needs: No Vision needs: Yes Meds Allergies Allergy/AdvReac Type Severity Reaction Status Date / Time No Known Allergies Allergy Verified 06/15/23 09:14 Active Medications: Current Medications Acetaminophen (Acetaminophen 325 Mg Tablet) 975 mg PO Q6H PRN PRN Reason: Pain, Mild (Pain Scale 1-3) Albuterol Sulfate (Albuterol Sulfate (0.083%) 2.5 Mg/3 Ml Vial.Neb) 2.5 mg INHALE QID PRN PRN Reason: shortness of breath or wheezing Albuterol Sulfate (Albuterol Sulfate 90 Mcg 8 Gm Inhaler) 2 puff INHALE Q6H PRN PRN Reason: shortness of breath or wheezing Last Admin: 08/09/23 20:32 Dose: 2 puff Atorvastatin Calcium (Atorvastatin Calcium 80 Mg Tablet) 80 mg PO DAILY [facility] Last Admin: 08/10/23 09:49 Dose: Not Given Cyanocobalamin (Cyanocobalamin (Vitamin B-12) 1,000 Mcg Tablet) 1,000 mcg PO DAILY [facility] Last Admin: 08/10/23 09:49 Dose: Not Given Dorzolamide/Timolol (Dorzolamide/Timolo 2.23%/0.68% 10 Ml Drbtl) 1 drop EYE-BOTH DAILY [facility] Last Admin: 08/10/23 09:45 Dose: 1 drop Ergocalciferol (Ergocalciferol (Vitamin D2) 1,250 Mcg Capsule) 1,250 mcg PO Mo@0900 [facility] Fluticasone Propionate (Fluticasone Propionate 250 Mcg Blst.W.Dev) 2 puff INHALE RBID [facility] Last Admin: 08/10/23 07:44 Dose: 2 puff Gabapentin (Gabapentin 600 Mg Tablet) 600 mg PO TID [facility] Last Admin: 08/10/23 09:49 Dose: Not Given Hydromorphone HCl (Hydromorphone Hcl 0.5 Mg/0.5 Ml Syringe) 0.25 mg IVPUSH Q2H PRN; Protocol PRN Reason: Pain, Moderate(Pain Scale 4-6) Last Admin: 08/09/23 20:28 Dose: 0.25 mg Lactated Ringer's (Lr) 1,000 mls @ 100 mls/hr IVCONT .Q10H [facility] Last Infusion: 08/10/23 09:50 Dose: Infused Cefazolin Sodium/Dextrose (Ancef) 2 gm in 50 mls @ 100 mls/hr IV ONCE ONE Stop: 08/10/23 11:29 Last Admin: 08/10/23 10:37 Dose: Not Given Latanoprost (Latanoprost 0.005 % Ophth Tram 2.5 Ml Drops) 1 drop EYE-BOTH BEDTIME [facility] Last Admin: 08/09/23 20:29 Dose: 1 drop [place] Carbonate ([place] Carbonate Er 450 Mg Tablet.Er) 450 mg PO BID [facility] Last Admin: 08/10/23 09:50 Dose: Not Given Lorazepam (Lorazepam 0.5 Mg Tablet) 0.5 mg PO DAILY PRN PRN Reason: Anxiety Lurasidone HCl (Lurasidone Hcl 40 Mg Tablet) 40 mg PO BEDTIME [facility] Last Admin: 08/09/23 20:33 Dose: Not Given Omeprazole (Omeprazole 20 Mg Capsule.Dr) 20 mg PO DAILY PRN PRN Reason: Acid Reflux Ondansetron HCl (Ondansetron Hcl 4 Mg/2 Ml Vial) 4 mg IVPUSH Q6H PRN PRN Reason: Nausea and Vomiting Last Admin: 08/10/23 09:43 Dose: 4 mg Venlafaxine HCl (Venlafaxine Hcl Er 150 Mg Cap.Er.24h) 150 mg PO DAILY@1800 [facility] Last Admin: 08/09/23 17:15 Dose: Not Given Zolpidem Tartrate (Zolpidem Tartrate 5 Mg Tablet) 5 mg PO BEDTIME [facility] Last Admin: 08/09/23 20:27 Dose: 5 mg Home Medications Medication Instructions Recorded Confirmed Last Taken Type zolpidem 10 mg tablet (Ambien) 10 mg PO BEDTIME Sleep 09/09/20 08/09/23 08/08/23 History acetaminophen 325 mg tablet 325 mg PO DAILY PRN Pain (Scale 01/21/22 08/09/23 08/08/23 History Score 4-6) lithium carbonate 450 mg 450 mg PO BID 01/21/22 08/09/23 08/08/23 History tablet,extended release omeprazole 20 mg capsule,delayed 20 mg PO DAILY PRN Acid Reflux 09/14/22 08/09/23 08/08/23 History release lurasidone 40 mg tablet (Latuda) 40 mg PO BEDTIME 10/11/22 08/09/23 08/08/23 History venlafaxine 150 mg 150 mg PO QPM 10/11/22 08/09/23 08/08/23 History capsule,extended release 24 hr dorzolamide 22.3 mg-timolol 6.8 1 drp ophthalmic (eye) DAILY 01/20/23 08/09/23 08/08/23 History mg/mL eye drops albuterol sulfate 2.5 mg/3 mL 2.5 mg inhalation QID PRN 08/09/23 08/09/23 08/08/23 History (0.083 %) solution for nebulization shortness of breath or wheezing ergocalciferol (vitamin D2) 1,250 1,250 mcg PO TU 08/09/23 08/09/23 08/08/23 History mcg (50,000 unit) capsule latanoprost 0.005 % eye drops 1 drp ophthalmic (eye) BEDTIME 08/09/23 08/09/23 08/08/23 History lorazepam 0.5 mg tablet 0.5 mg PO QAM PRN Anxiety 08/09/23 08/09/23 08/08/23 History Exam Exam Date and Time: August 10, 2023 1042 Height,Weight and Vital Signs: Height 5 ft 3 in Weight 103.8 kg Last Vital Signs Temp 98.4 F 08/10/23 07:36 Pulse 60 08/10/23 07:36 Resp 18 08/10/23 07:46 BP 121/59 L 08/10/23 07:36 Pulse Ox 98 08/10/23 07:36 O2 Del Method Room Air 08/10/23 07:36 Pertinent Lab Results Pertinent Lab Results: Laboratory Tests 08/09/23 08/09/23 08/10/23 10:11 11:48 05:40 WBC 9.2 8.1 RBC 4.77 4.08 L Hgb 13.1 11.1 L Hct 39.7 34.6 L MCV 83.2 84.8 MCH 27.5 27.2 MCHC 33.0 32.1 RDW 14.4 14.4 Plt Count 278 239 MPV 10.4 11.3 Immature Gran % (Auto) 0.3 0.2 Neut % (Auto) 65.3 59.1 Lymph % (Auto) 24.1 29.6 [place] % (Auto) 8.7 9.5 Eos % (Auto) 1.1 1.1 Baso % (Auto) 0.5 0.5 Lymph # (Auto) 2.2 2.4 [place] # (Auto) 0.8 0.8 Eos # (Auto) 0.1 0.1 Baso # (Auto) 0.1 0.0 Abs Immat Gran (auto) 0.03 0.02 Absolute Neuts (auto) 6.0 4.8 Absolute Nucleated RBC 0.000 0.000 Nucleated RBC % (auto) 0.0 0.0 Sodium 137 140 Potassium 3.7 3.8 Chloride 105 109 H Carbon Dioxide 22 20 L Anion Gap 14 15 BUN 19 H 16 Creatinine 1.15 0.81 Estim Creat Clear Calc 56.9 80.8 Estimated GFR 48 > 60 Random Glucose 114 80 Estimat Average Glucose 103 Hemoglobin A1c % 5.2 Calcium 9.8 9.2 D Total Bilirubin 0.8 0.8 Direct Bilirubin 0.3 AST 23 25 ALT 19 17 Alkaline Phosphatase 91 79 Troponin I High Sens < 2.7 Total Protein 8.4 H 7.0 Albumin 4.3 3.7 Lipase 15 Urine Color Yellow Urine Appearance Clear Urine pH 5.5 Ur Specific [place] <= 1.005 Urine Protein Negative Urine Glucose (UA) Negative Urine Ketones Negative Urine Blood Negative Urine Nitrite Negative Ur Leukocyte Esterase Negative [place] Blood Type O Positive Antibody Screen NEGATIVE 08/10/23 08:57 WBC RBC Hgb Hct MCV MCH MCHC RDW Plt Count MPV Immature Gran % (Auto) Neut % (Auto) Lymph % (Auto) [place] % (Auto) Eos % (Auto) Baso % (Auto) Lymph # (Auto) [place] # (Auto) Eos # (Auto) Baso # (Auto) Abs Immat Gran (auto) Absolute Neuts (auto) Absolute Nucleated RBC Nucleated RBC % (auto) Sodium Potassium Chloride Carbon Dioxide Anion Gap BUN Creatinine Estim Creat Clear Calc Estimated GFR Random Glucose Estimat Average Glucose Hemoglobin A1c % Calcium Total Bilirubin Direct Bilirubin AST ALT Alkaline Phosphatase Troponin I High Sens Total Protein Albumin Lipase Urine Color Urine Appearance Urine pH Ur Specific [place] Urine Protein Urine Glucose (UA) Urine Ketones Urine Blood Urine Nitrite Ur Leukocyte Esterase [place] < 0.10 L Blood Type Antibody Screen Airway Mallampati Class: III TM Dist: >3cm Neck ROM: Full Assessment and Plan Assessment Anesthesia Assessment: Anesthesia Plan Discussed and Chart Reviewed Final Anesthetic Review Family History of Problems with Anesthesia: No History of Problems with Anesthesia: No NPO: Yes ASA Class: III and Emergency Final Preanesthetic Review: No Changes in Pt Med Stat, Meds/Allgs Chart Reviewed, Consent Obtained/Reviewed and Anes Risks/Benef Reviewed Patient Risk: Intermediate Procedure Risk: Intermediate Anesthetic Plan Anesthetic Plan: GA Disposition: Standard PACU
--- NOTE | 2023-08-10 11:37 | MHC.CM.PN ---
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
--- NOTE | 2023-08-10 14:13 | PC.NURSE ---
unsure of when iv was placed. Functioning in pacu computer required date. today charted.
[2023-08-10] MEDS: fentaNYL citrate/PF 100 MCG/2 ML VIAL 50 MCG IVPUSH ×4 (14:20→14:45)
[2023-08-10] MEDS: Acetaminophen 325 MG TABLET 975 MG PO (15:24)
[2023-08-10] MEDS: Gabapentin 600 MG TABLET PO (15:24)
[2023-08-10] MEDS: oxyCODONE HCl Immed Release 5 MG TABLET PO ×2 (15:24→16:14)
[2023-08-10] MEDS: Lactated Ringers 1,000 ML 100 ML IVCONT (15:24)
--- NOTE | 2023-08-10 16:15 | PM.PNGS ---
Subjective Subjective Date of Service: 08/10/23 Patient reports: still having pain Interval history: The patient is seen with the help of interpretive services and reports expected right upper quadrant and abdominal pain. She denies any difficulty breathing but notes inadequate pain medicine coverage at this point. Explained that her operation was done laparoscopically and I had to leave a temporary drain is expected. Her gallbladder was very inflamed and there was a fair amount of scar tissue. She requested I contact her partner, Andre, by telephone at [phone] to give him an update. Physical Exam Vital Signs: Vital Signs: Last Vital Signs Temp 96.8 F 08/10/23 15:34 Pulse 74 08/10/23 15:34 Resp 20 08/10/23 15:34 BP 137/75 08/10/23 15:34 Pulse Ox 100 08/10/23 15:34 O2 Del Method Room Air 08/10/23 15:34 O2 Flow Rate 2 08/10/23 14:55 BMI result Body Mass Index 40.5 On exam, she is nontoxic but has expected postoperative discomfort She is having no respiratory difficulty SARABJIT has serosanguineous, predominantly bloody drainage but no bile Objective Data Active Medications Acetaminophen (Acetaminophen 325 Mg Tablet) 975 mg PO Q6H PRN PRN Reason: Pain, Mild (Pain Scale 1-3) Last Admin: 08/10/23 15:24 Dose: 975 mg Documented By: DALE Albuterol Sulfate (Albuterol Sulfate (0.083%) 2.5 Mg/3 Ml Vial.Neb) 2.5 mg INHALE QID PRN PRN Reason: shortness of breath or wheezing Albuterol Sulfate (Albuterol Sulfate 90 Mcg 8 Gm Inhaler) 2 puff INHALE Q6H PRN PRN Reason: shortness of breath or wheezing Last Admin: 08/09/23 20:32 Dose: 2 puff Documented By: MILANAORALB Atorvastatin Calcium (Atorvastatin Calcium 80 Mg Tablet) 80 mg PO DAILY [facility] Last Admin: 08/10/23 09:49 Dose: Not Given Documented By: DALE Non-Admin Reason: Patient Refused Cyanocobalamin (Cyanocobalamin (Vitamin B-12) 1,000 Mcg Tablet) 1,000 mcg PO DAILY [facility] Last Admin: 08/10/23 09:49 Dose: Not Given Documented By: DALE Non-Admin Reason: Patient Refused Docusate Sodium (Docusate Sodium 100 Mg Capsule) 200 mg PO BID [facility] Dorzolamide/Timolol (Dorzolamide/Timolo 2.23%/0.68% 10 Ml Drbtl) 1 drop EYE-BOTH DAILY [facility] Last Admin: 08/10/23 09:45 Dose: 1 drop Documented By: DALE Ergocalciferol (Ergocalciferol (Vitamin D2) 1,250 Mcg Capsule) 1,250 mcg PO Mo@0900 [facility] Fluticasone Propionate (Fluticasone Propionate 250 Mcg Blst.W.Dev) 2 puff INHALE RBID [facility] Last Admin: 08/10/23 07:44 Dose: 2 puff Documented By: [place] Gabapentin (Gabapentin 600 Mg Tablet) 600 mg PO TID [facility] Last Admin: 08/10/23 15:24 Dose: 600 mg Documented By: DALE Hydromorphone HCl (Hydromorphone Hcl 0.5 Mg/0.5 Ml Syringe) 0.25 mg IVPUSH Q2H PRN; Protocol PRN Reason: Pain, Moderate(Pain Scale 4-6) Last Admin: 08/09/23 20:28 Dose: 0.25 mg Documented By: GUSTABO Lactated Ringer's (Lr) 1,000 mls @ 100 mls/hr IVCONT .Q10H [facility] Last Admin: 08/10/23 15:24 Dose: 100 mls/hr Documented By: DALE Lactated Ringer's (Lr) 1,000 mls @ 100 mls/hr IVCONT .Q10H [facility] Last Admin: 08/10/23 15:30 Dose: Not Given Documented By: DALE Non-Admin Reason: IV Running Piperacillin Sod/Tazobactam (Sod 3.375 gm/ Sodium Chloride) 50 mls @ 100 mls/hr IV Q6H [facility] Latanoprost (Latanoprost 0.005 % Ophth Tram 2.5 Ml Drops) 1 drop EYE-BOTH BEDTIME [facility] Last Admin: 08/09/23 20:29 Dose: 1 drop Documented By: GUSTABO [place] Carbonate ([place] Carbonate Er 450 Mg Tablet.Er) 450 mg PO BID [facility] Last Admin: 08/10/23 09:50 Dose: Not Given Documented By: DALE Non-Admin Reason: Patient Refused Lorazepam (Lorazepam 0.5 Mg Tablet) 0.5 mg PO DAILY PRN PRN Reason: Anxiety Lurasidone HCl (Lurasidone Hcl 40 Mg Tablet) 40 mg PO BEDTIME [facility] Last Admin: 08/09/23 20:33 Dose: Not Given Documented By: GUSTABO Non-Admin Reason: Patient Refused Omeprazole (Omeprazole 20 Mg Capsule.Dr) 20 mg PO DAILY PRN PRN Reason: Acid Reflux Ondansetron HCl (Ondansetron Hcl 4 Mg/2 Ml Vial) 4 mg IVPUSH Q6H PRN PRN Reason: Nausea and Vomiting Last Admin: 08/10/23 09:43 Dose: 4 mg Documented By: DALE Ondansetron HCl (Ondansetron Hcl 4 Mg/2 Ml Vial) 4 mg IVPUSH ONCE PRN PRN Reason: Nausea and Vomiting Oxycodone HCl (Oxycodone Hcl Immed Release 5 Mg Tablet) 5 mg PO Q4H PRN PRN Reason: Pain, Moderate(Pain Scale 4-6) Last Admin: 08/10/23 15:24 Dose: 5 mg Documented By: DALE Oxycodone HCl (Oxycodone Hcl Immed Release 5 Mg Tablet) 10 mg PO Q4H PRN PRN Reason: Pain, Severe (Pain Scale 7-10) Venlafaxine HCl (Venlafaxine Hcl Er 150 Mg Cap.Er.24h) 150 mg PO DAILY@1800 [facility] Last Admin: 08/09/23 17:15 Dose: Not Given Documented By: AASHISH Non-Admin Reason: Patient Refused Zolpidem Tartrate (Zolpidem Tartrate 5 Mg Tablet) 5 mg PO BEDTIME [facility] Last Admin: 08/09/23 20:27 Dose: 5 mg Documented By: GUSTABO Labs 08/10/23 05:40 08/10/23 05:40 Labs: Laboratory Results - last 24 hr 08/10/23 08/10/23 05:40 08:57 MCV 84.8 MCH 27.2 MCHC 32.1 RDW 14.4 Plt Count 239 MPV 11.3 Immature Gran % (Auto) 0.2 Neut % (Auto) 59.1 Lymph % (Auto) 29.6 [place] % (Auto) 9.5 Eos % (Auto) 1.1 Baso % (Auto) 0.5 Lymph # (Auto) 2.4 [place] # (Auto) 0.8 Eos # (Auto) 0.1 Baso # (Auto) 0.0 Abs Immat Gran (auto) 0.02 Absolute Neuts (auto) 4.8 Absolute Nucleated RBC 0.000 Nucleated RBC % (auto) 0.0 Anion Gap 15 Estim Creat Clear Calc 80.8 Estimated GFR > 60 Random Glucose 80 Calcium 9.2 D Total Bilirubin 0.8 AST 25 ALT 17 Alkaline Phosphatase 79 Total Protein 7.0 Albumin 3.7 [place] < 0.10 L Blood Type O Positive Antibody Screen NEGATIVE Procedures Date of Service Date of Service: 08/10/23 Progress Note: A&P Assessment and plan (1) Acute cholecystitis: Status: Acute (2) Morbid obesity with BMI of 40.0-44.9, adult: Status: Acute (3) Asthma: Status: Acute (4) Obstructive sleep apnea: Status: Acute (5) Phlegmasia cerulea dolens: Status: Acute (6) Current use of anticoagulant therapy: Status: Acute Plan See orders re: additional oxycodone, another 5mg now. Pt had N/V from Dilaudid, please premedicate with Zofran if Dilaudid is needed At pt's request, her partner Andre was called at [phone] with the help of Soila. In the operation being completed laparoscopically, temporary drain, need to control her pain and labs was reviewed. His questions seemed to be satisfactorily answered. Will assess Hb & pt in am, hold on anticoagulation d/t significant liver bed oozing in the setting of an enlarged, fatty liver & intrahepatic GB. Time Spent With Patient Time: Total time managing care of this patient today ____ minutes. Quality Stroke Does the patient have a stroke diagnosis?: No VTE Prior VTE?: Yes VTE Risk Level:: Surgical - high VTE Device Contraindication: N/A - Device Ordered VTE Drug Contraindication: N/A - Med Ordered
[2023-08-10] MEDS: Venlafaxine HCl ER 150 MG CAP.ER.24H PO (17:23)
[2023-08-10] MEDS: oxyCODONE HCl Immed Release 5 MG TABLET 10 MG PO (19:41)
[2023-08-10] MEDS: Zolpidem Tartrate 5 MG TABLET PO (20:37)
[2023-08-10] MEDS: Latanoprost 0.005 % Ophth Sol 2.5 ML DROPS 1 DROP EYE-BOTH (20:37)
[2023-08-10] MEDS: Docusate Sodium 100 MG CAPSULE 200 MG PO (20:37)
[2023-08-10] MEDS: Omeprazole 20 MG CAPSULE.DR PO (21:28)
[2023-08-11] VITALS (10 sets, daily range): BP systolic 122–154; BP diastolic 65–81; PULSE 63–70; RESP 16–20; TEMP 36–36.3; O2SAT 93–96
[2023-08-11] MEDS: Lactated Ringers 1,000 ML 100 ML IVCONT ×4 (01:31→22:38)
[2023-08-11] MEDS: Fluticasone Propionate 250 MCG BLST.W.DEV 2 PUFF INHALE ×2 (07:32→19:37)
--- NOTE | 2023-08-11 07:58 | PM.PNGS ---
Subjective Subjective Date of Service: 08/11/23 Patient reports: feels better Interval history: The patient is seen with the help of interpretive services. She reports she has less pain than yesterday and is tolerating liquids. She denies any lower extremity pain or swelling, difficulty breathing or shortness of breath. Overall, she is improved from last evaluation. Physical Exam Vital Signs: Vital Signs: Last Vital Signs Temp 96.8 F 08/11/23 03:11 Pulse 64 08/11/23 03:11 Resp 16 08/11/23 07:33 BP 139/67 08/11/23 03:11 Pulse Ox 95 08/11/23 03:11 O2 Del Method CPAP 08/11/23 03:11 O2 Flow Rate 2 08/10/23 14:55 BMI result Body Mass Index 40.5 On exam, she is anicteric and nontoxic She is in no acute respiratory distress Abdomen has expected incisional tenderness in the SARABJIT output remains serosanguineous with no clot 80cc total output is documented Objective Data Active Medications Acetaminophen (Acetaminophen 325 Mg Tablet) 975 mg PO Q6H PRN PRN Reason: Pain, Mild (Pain Scale 1-3) Last Admin: 08/10/23 15:24 Dose: 975 mg Documented By: DALE Albuterol Sulfate (Albuterol Sulfate (0.083%) 2.5 Mg/3 Ml Vial.Neb) 2.5 mg INHALE QID PRN PRN Reason: shortness of breath or wheezing Albuterol Sulfate (Albuterol Sulfate 90 Mcg 8 Gm Inhaler) 2 puff INHALE Q6H PRN PRN Reason: shortness of breath or wheezing Last Admin: 08/09/23 20:32 Dose: 2 puff Documented By: GUSTABO Atorvastatin Calcium (Atorvastatin Calcium 80 Mg Tablet) 80 mg PO DAILY [facility] Last Admin: 08/10/23 09:49 Dose: Not Given Documented By: DALE Non-Admin Reason: Patient Refused Cyanocobalamin (Cyanocobalamin (Vitamin B-12) 1,000 Mcg Tablet) 1,000 mcg PO DAILY [facility] Last Admin: 08/10/23 09:49 Dose: Not Given Documented By: DALE Non-Admin Reason: Patient Refused Docusate Sodium (Docusate Sodium 100 Mg Capsule) 200 mg PO BID [facility] Last Admin: 08/10/23 20:37 Dose: 200 mg Documented By: DEBORA Dorzolamide/Timolol (Dorzolamide/Timolo 2.23%/0.68% 10 Ml Drbtl) 1 drop EYE-BOTH DAILY [facility] Last Admin: 08/10/23 09:45 Dose: 1 drop Documented By: DALE Ergocalciferol (Ergocalciferol (Vitamin D2) 1,250 Mcg Capsule) 1,250 mcg PO Mo@0900 [facility] Fluticasone Propionate (Fluticasone Propionate 250 Mcg Blst.W.Dev) 2 puff INHALE RBID [facility] Last Admin: 08/11/23 07:32 Dose: 2 puff Documented By: STAN Gabapentin (Gabapentin 600 Mg Tablet) 600 mg PO TID [facility] Last Admin: 08/10/23 20:42 Dose: Not Given Documented By: DEBORA Non-Admin Reason: Patient Refused Hydromorphone HCl (Hydromorphone Hcl 0.5 Mg/0.5 Ml Syringe) 0.25 mg IVPUSH Q2H PRN; Protocol PRN Reason: Pain, Moderate(Pain Scale 4-6) Last Admin: 08/09/23 20:28 Dose: 0.25 mg Documented By: MILANAORALB Lactated Ringer's (Lr) 1,000 mls @ 100 mls/hr IVCONT .Q10H [facility] Last Admin: 08/11/23 01:31 Dose: 100 mls/hr Documented By: DEBORA Lactated Ringer's (Lr) 1,000 mls @ 100 mls/hr IVCONT .Q10H [facility] Last Admin: 08/11/23 01:32 Dose: Not Given Documented By: DEBORA Non-Admin Reason: IV Running Piperacillin Sod/Tazobactam (Sod 3.375 gm/ Sodium Chloride) 50 mls @ 100 mls/hr IV Q6H [facility] Latanoprost (Latanoprost 0.005 % Ophth Tram 2.5 Ml Drops) 1 drop EYE-BOTH BEDTIME [facility] Last Admin: 08/10/23 20:37 Dose: 1 drop Documented By: DEBORA [place] Carbonate ([place] Carbonate Er 450 Mg Tablet.Er) 450 mg PO BID [facility] Last Admin: 08/10/23 20:42 Dose: Not Given Documented By: DEBORA Non-Admin Reason: Patient Refused Lorazepam (Lorazepam 0.5 Mg Tablet) 0.5 mg PO DAILY PRN PRN Reason: Anxiety Lurasidone HCl (Lurasidone Hcl 40 Mg Tablet) 40 mg PO BEDTIME [facility] Last Admin: 08/10/23 20:42 Dose: Not Given Documented By: DEBORA Non-Admin Reason: Patient Refused Omeprazole (Omeprazole 20 Mg Capsule.Dr) 20 mg PO DAILY PRN PRN Reason: Acid Reflux Last Admin: 08/10/23 21:28 Dose: 20 mg Documented By: DEBORA Ondansetron HCl (Ondansetron Hcl 4 Mg/2 Ml Vial) 4 mg IVPUSH Q6H PRN PRN Reason: Nausea and Vomiting Last Admin: 08/10/23 09:43 Dose: 4 mg Documented By: DALE Ondansetron HCl (Ondansetron Hcl 4 Mg/2 Ml Vial) 4 mg IVPUSH ONCE PRN PRN Reason: Nausea and Vomiting Oxycodone HCl (Oxycodone Hcl Immed Release 5 Mg Tablet) 5 mg PO Q4H PRN PRN Reason: Pain, Moderate(Pain Scale 4-6) Last Admin: 08/10/23 15:24 Dose: 5 mg Documented By: REXFAHardeep Oxycodone HCl (Oxycodone Hcl Immed Release 5 Mg Tablet) 10 mg PO Q4H PRN PRN Reason: Pain, Severe (Pain Scale 7-10) Last Admin: 08/10/23 19:41 Dose: 10 mg Documented By: DEBORA Venlafaxine HCl (Venlafaxine Hcl Er 150 Mg Cap.Er.24h) 150 mg PO DAILY@1800 [facility] Last Admin: 08/10/23 17:23 Dose: 150 mg Documented By: DALE Zolpidem Tartrate (Zolpidem Tartrate 5 Mg Tablet) 5 mg PO BEDTIME [facility] Last Admin: 08/10/23 20:37 Dose: 5 mg Documented By: DEBORA Labs 08/10/23 05:40 08/10/23 05:40 Labs: Laboratory Results - last 24 hr 08/10/23 08:57 [place] < 0.10 L Microbiology Microbiology Results: Intraoperative gallbladder aspirate sent for Gram stain and culture is lost with no result. Procedures Date of Service Date of Service: 08/11/23 Progress Note: A&P Assessment and plan (1) Acute cholecystitis: Status: Acute (2) Morbid obesity with BMI of 40.0-44.9, adult: Status: Acute (3) Depression: Status: Acute (4) Anxiety: Status: Acute (5) Obstructive sleep apnea: Status: Acute (6) Current use of anticoagulant therapy: Status: Acute (7) Phlegmasia cerulea dolens: Status: Acute (8) Pure hypercholesterolemia: Status: Acute Plan Advanced diet to low-fat, see orders Be interpretive services, the patient requested that I contact her partner, Andre, and I will do so to a brief him on today's plan Will start Eliquis tonight and monitor the patient and recheck labs in the morning. If she remains stable, I will remove her drain and discharge tomorrow. Andre called at [phone] with the help of Soila; message left with bariatric office phone number [phone]. Will review the plan as equested b pt. Will continue antibiotics. With her age & comorbidities, the incidence of bactobilia is 50%; the lost intraoperative Gram stain and culture will mandate treating her with oral antibiotics. Time Spent With Patient Time: Total time managing care of this patient today ____ minutes. Quality Stroke Does the patient have a stroke diagnosis?: No VTE Prior VTE?: Yes VTE Risk Level:: Surgical - high VTE Device Contraindication: N/A - Device Ordered VTE Drug Contraindication: N/A - Med Ordered
[2023-08-11] MEDS: Dorzolamide/Timolo 2.23%/0.68% 10 ML DRBTL 1 DROP EYE-BOTH (08:54)
[2023-08-11] MEDS: Atorvastatin Calcium 80 MG TABLET PO (08:57)
[2023-08-11] MEDS: Docusate Sodium 100 MG CAPSULE 200 MG PO (08:57)
[2023-08-11] MEDS: Cyanocobalamin (Vitamin B-12) 1,000 MCG TABLET 1000 MCG PO (08:57)
--- NOTE | 2023-08-11 09:53 | PC.NURSE ---
SARABJIT drain 10cc of bloody drainage, no odor.
[2023-08-11] MEDS: oxyCODONE HCl Immed Release 5 MG TABLET PO (10:59)
[2023-08-11] MEDS: oxyCODONE HCl Immed Release 5 MG TABLET 10 MG PO (14:25)
--- NOTE | 2023-08-11 14:45 | HO.POSTANES ---
Post Anesthesia Evaluation Post Anesthesia Evaluation Date of Service: 08/11/23 Vital Signs: Vital Signs Temp Pulse Resp BP Pulse Ox O2 Del Method 08/11/23 13:00 96.8 F 63 18 122/81 96 Room Air 08/11/23 07:57 96.8 F 69 18 149/65 H 94 Room Air 08/11/23 07:33 16 08/11/23 03:44 18 08/11/23 03:11 96.8 F 64 18 139/67 95 CPAP Anesthesia: General Endotracheal-GETA Mental Status: Awake Pain Control: Satisfactory Nausea/Vomiting: None Hydration: Adequate Anesthesia-Related Issues: No Anes. Related Issues
--- NOTE | 2023-08-11 17:39 | PC.NURSE ---
Pt refusing psych meds, education provided and continues to refuse PO psych meds.
[2023-08-11] MEDS: Piperacillin Sodium/Tazobactam 3.375 GM in 0.9 % Sodium Chloride 50 ML IV (17:43)
[2023-08-11] MEDS: Apixaban 5 MG TABLET PO (17:43)
[2023-08-11] MEDS: Gabapentin 600 MG TABLET PO (20:14)
[2023-08-11] MEDS: Zolpidem Tartrate 5 MG TABLET PO (20:14)
[2023-08-11] MEDS: Latanoprost 0.005 % Ophth Sol 2.5 ML DROPS 1 DROP EYE-BOTH (20:14)
--- NOTE | 2023-08-11 20:18 | PC.NURSE ---
Pt refused [place] and Latuda PO medications. Dr. Piña aware
[2023-08-12] MEDS: Piperacillin Sodium/Tazobactam 3.375 GM in 0.9 % Sodium Chloride 50 ML IV ×2 (00:16→05:50)
[2023-08-12 01:00] VITALS: BP 172/82; PULSE 65; RESP 18; TEMP 36.3; O2SAT 97
[2023-08-12] MEDS: ondansetron HCL 4 MG/2 ML VIAL IVPUSH (03:47)
[2023-08-12] MEDS: HYDROmorphone HCl 0.5 MG/0.5 ML SYRINGE 0.25 MG IVPUSH (03:47)
[2023-08-12 04:11] VITALS: RESP 18
[2023-08-12 05:00] VITALS: BP 125/61; PULSE 73; RESP 16; TEMP 36.2; O2SAT 92
[2023-08-12 05:25] LABS: MANUAL DIFF FLAG NO
[2023-08-12 05:29] LABS: Basophils Percent Auto 0.4 % (0-2); Eosinophils Absolute Auto 0.1 X10*3/uL (0.0-0.4); Eosinophils Percent Auto 0.7 % (0-4); Hematocrit 32.6 % (37.0-47.0); Hemoglobin 10.4 g/dl (12.0-16.0); Imm Gran Abs Auto 0.03 X10*3/uL (0.00-0.03); Imm Gran Pct Auto 0.4 % (0.0-0.4); Lymphocytes Absolute Auto 2.1 X10*3/uL (1.2-4.9); Lymphocytes Percent Auto 25.2 % (20-40); Mean Corpuscular HGB Conc 31.9 g/dl (31.0-35.0); Mean Corpuscular Hemoglobin 27.2 pg (27.0-33.0); Mean Corpuscular Volume 85.1 fL (80.0-98.0); Mean Platelet Volume 10.7 fL (9.4-12.3); Monocytes Absolute Auto 0.8 X10*3/uL (0.1-1.2); Monocytes Percent Auto 9.1 % (2-11); Neutrophils Absolute Auto 5.4 x10*3/uL (2.0-8.3); Neutrophils Percent Auto 64.2 % (45-73); Platelet Count 251 X10*3/uL (160-400); Red Blood Count 3.83 X10*6/uL (4.20-5.50); Red Cell Distribution Width 14.2 % (11.0-16.0); White Blood Count 8.4 X10*3/uL (4.8-10.8)
[2023-08-12 05:46] LABS: Alanine Aminotransferase 33 U/L (0-31); Albumin Level 3.6 g/dL (3.5-5.0); Alkaline Phosphatase 90 U/L (39-117); Anion Gap 11 (12-20); Aspartate Amino Transferase 46 U/L (5-31); Bilirubin Total 0.7 mg/dL (0.0-1.0); Blood Urea Nitrogen 12 mg/dL (9-16); Carbon Dioxide 24 mmol/L (22-29); Chloride 108 mmol/L (96-108); Creatinine Clr Calc Pharmacy 73.5; Estimated Glomerular Filt Rate > 60; Glucose Random 105 mg/dL (60-115); Potassium 3.5 mmol/L (3.3-5.1); Sodium 139 mmol/L (135-145); Total Protein 6.6 g/dL (6.5-8.0)
--- NOTE | 2023-08-12 06:56 | P.PNGS_ITS ---
Subjective Subjective Date of Service: 08/12/23 Patient reports: feels better, tolerating a regular diet and flatus Interval history: Interpretive services. She reports she is doing well and denies any nausea or vomiting. She has no new complaints. She received Eliquis last night, labs show that her hemoglobin is stable and she has no tachycardia, so she is advised that the right upper quadrant drain will be removed. She received notice that her oxycodone prescription has been completed as well as her antibiotics and is looking forward to discharge later today. The unlikely but possible issue of bleeding after the drain is removed that would demonstrate by causing right- sided and pelvic abdominal pain was discussed and apparently understood. Physical Exam 2 Vital Signs: Vital Signs: Last Vital Signs Temp 97.2 F 08/12/23 05:00 Pulse 73 08/12/23 05:00 Resp 16 08/12/23 05:00 BP 125/61 08/12/23 05:00 Pulse Ox 92 08/12/23 05:00 O2 Del Method Room Air 08/12/23 05:00 O2 Flow Rate 2 08/10/23 14:55 BMI result Body Mass Index 40.5 On exam, the patient is anicteric and nontoxic She is in no acute respiratory distress The right upper quadrant SARABJIT is predominantly serosanguineous; there was no gross blood in no bilious drainage. Objective Data Active Medications Acetaminophen (Acetaminophen 325 Mg Tablet) 975 mg PO Q6H PRN PRN Reason: Pain, Mild (Pain Scale 1-3) Last Admin: 08/10/23 15:24 Dose: 975 mg Documented By: DALE Albuterol Sulfate (Albuterol Sulfate (0.083%) 2.5 Mg/3 Ml Vial.Neb) 2.5 mg INHALE QID PRN PRN Reason: shortness of breath or wheezing Albuterol Sulfate (Albuterol Sulfate 90 Mcg 8 Gm Inhaler) 2 puff INHALE Q6H PRN PRN Reason: shortness of breath or wheezing Last Admin: 08/09/23 20:32 Dose: 2 puff Documented By: MILANAORALB Apixaban (Apixaban 5 Mg Tablet) 5 mg PO BID@0700,1900 [facility] Atorvastatin Calcium (Atorvastatin Calcium 80 Mg Tablet) 80 mg PO DAILY [facility] Last Admin: 08/11/23 08:57 Dose: 80 mg Documented By: PINA Calcium Carbonate (Calcium Carbonate 750 Mg Tab.Chew) 750 mg PO Q4H PRN PRN Reason: GI Upset Cyanocobalamin (Cyanocobalamin (Vitamin B-12) 1,000 Mcg Tablet) 1,000 mcg PO DAILY [facility] Last Admin: 08/11/23 08:57 Dose: 1,000 mcg Documented By: PINA Dorzolamide/Timolol (Dorzolamide/Timolo 2.23%/0.68% 10 Ml Drbtl) 1 drop EYE- BOTH DAILY [facility] Last Admin: 08/11/23 08:54 Dose: 1 drop Documented By: PINA Ergocalciferol (Ergocalciferol (Vitamin D2) 1,250 Mcg Capsule) 1,250 mcg PO Mo@0900 [facility] Fluticasone Propionate (Fluticasone Propionate 250 Mcg Blst.W.Dev) 2 puff INHALE RBID [facility] Last Admin: 08/11/23 19:37 Dose: 2 puff Documented By: ANU Gabapentin (Gabapentin 600 Mg Tablet) 600 mg PO TID [facility] Last Admin: 08/11/23 20:14 Dose: 600 mg Documented By: DEBORA Hydromorphone HCl (Hydromorphone Hcl 0.5 Mg/0.5 Ml Syringe) 0.25 mg IVPUSH Q2H PRN; Protocol PRN Reason: Pain, Moderate(Pain Scale 4-6) Last Admin: 08/12/23 03:47 Dose: 0.25 mg Documented By: DEBORA Lactated Ringer's (Lr) 1,000 mls @ 100 mls/hr IVCONT .Q10H [facility] Last Admin: 08/11/23 22:38 Dose: 100 mls/hr Documented By: DEBORA Piperacillin Sod/Tazobactam (Sod 3.375 gm/ Sodium Chloride) 50 mls @ 100 mls/hr IV Q6H [facility] Last Infusion: 08/12/23 06:26 Dose: Infused Documented By: DEBORA Latanoprost (Latanoprost 0.005 % Ophth Tram 2.5 Ml Drops) 1 drop EYE-BOTH BEDTIME [facility] Last Admin: 08/11/23 20:14 Dose: 1 drop Documented By: DEBORA [place] Carbonate ([place] Carbonate Er 450 Mg Tablet.Er) 450 mg PO BID [facility] Last Admin: 08/11/23 20:18 Dose: Not Given Documented By: DEBORA Non-Admin Reason: Patient Refused Lorazepam (Lorazepam 0.5 Mg Tablet) 0.5 mg PO DAILY PRN PRN Reason: Anxiety Lurasidone HCl (Lurasidone Hcl 40 Mg Tablet) 40 mg PO BEDTIME [facility] Last Admin: 08/11/23 20:18 Dose: Not Given Documented By: DEBORA Non-Admin Reason: Patient Refused Omeprazole (Omeprazole 20 Mg Capsule.Dr) 20 mg PO DAILY PRN PRN Reason: Acid Reflux Last Admin: 08/10/23 21:28 Dose: 20 mg Documented By: DEBORA Ondansetron HCl (Ondansetron Hcl 4 Mg/2 Ml Vial) 4 mg IVPUSH Q6H PRN PRN Reason: Nausea and Vomiting Last Admin: 08/12/23 03:47 Dose: 4 mg Documented By: DEBORA Ondansetron HCl (Ondansetron Hcl 4 Mg/2 Ml Vial) 4 mg IVPUSH ONCE PRN PRN Reason: Nausea and Vomiting Oxycodone HCl (Oxycodone Hcl Immed Release 5 Mg Tablet) 5 mg PO Q4H PRN PRN Reason: Pain, Moderate(Pain Scale 4-6) Last Admin: 08/11/23 10:59 Dose: 5 mg Documented By: PINA Oxycodone HCl (Oxycodone Hcl Immed Release 5 Mg Tablet) 10 mg PO Q4H PRN PRN Reason: Pain, Severe (Pain Scale 7-10) Last Admin: 08/11/23 14:25 Dose: 10 mg Documented By: PINA Venlafaxine HCl (Venlafaxine Hcl Er 150 Mg Cap.Er.24h) 150 mg PO DAILY@1800 [facility] Last Admin: 08/11/23 17:43 Dose: Not Given Documented By: PINA Non-Admin Reason: Patient Refused Zolpidem Tartrate (Zolpidem Tartrate 5 Mg Tablet) 5 mg PO BEDTIME [facility] Last Admin: 08/11/23 20:14 Dose: 5 mg Documented By: DEBORA Labs 08/12/23 05:08 08/12/23 05:08 Labs: Laboratory Results - last 24 hr 08/12/23 05:08 MCV 85.1 MCH 27.2 MCHC 31.9 RDW 14.2 Plt Count 251 MPV 10.7 Immature Gran % (Auto) 0.4 Neut % (Auto) 64.2 Lymph % (Auto) 25.2 [place] % (Auto) 9.1 Eos % (Auto) 0.7 Baso % (Auto) 0.4 Lymph # (Auto) 2.1 [place] # (Auto) 0.8 Eos # (Auto) 0.1 Baso # (Auto) 0.0 Abs Immat Gran (auto) 0.03 Absolute Neuts (auto) 5.4 Absolute Nucleated RBC 0.000 Nucleated RBC % (auto) 0.0 Anion Gap 11 L Estim Creat Clear Calc 73.5 Estimated GFR > 60 Random Glucose 105 Calcium 9.0 Total Bilirubin 0.7 AST 46 H ALT 33 H Alkaline Phosphatase 90 Total Protein 6.6 Albumin 3.6 Hb appears stable & decrease is likely dilutional. Procedures Date of Service Date of Service: 08/12/23 Progress Note: A&P Assessment and plan (1) Acute cholecystitis: Status: Acute (2) S/P laparoscopic cholecystectomy: Status: Acute (3) Current use of anticoagulant therapy: Status: Acute (4) Morbid obesity with BMI of 40.0-44.9, adult: Status: Acute (5) Anxiety: Status: Acute Plan Explained the plan to remove the drain this morning, have her receive the morning dose of Eliquis and continue to monitor her until roughly noon. She will notify the nurses if she has dizziness, worsening abdominal pain, especially that radiates down towards her pelvis. This plan was reviewed with the staff nurse who seemed understand. Patient is to be seen by dietary regarding a low-fat diet. If the patient remains stable, please text me later this morning regarding discharge; if the patient is having tachycardia, worsening pain or clinical change, please notify me immediately, however expect the patient will be able to go home a by noon and will resume her b.i.d. Eliquis. Time Spent With Patient Time: Total time managing care of this patient today ____ minutes. Quality Stroke Does the patient have a stroke diagnosis?: No VTE Prior VTE?: Yes VTE Risk Level:: Surgical - high VTE Device Contraindication: N/A - Device Ordered VTE Drug Contraindication: N/A - Med Ordered
[2023-08-12 08:06] VITALS: BP 153/74; PULSE 63; RESP 18; TEMP 36.7; O2SAT 98
[2023-08-12] MEDS: Apixaban 5 MG TABLET PO (08:29)
[2023-08-12] MEDS: Atorvastatin Calcium 80 MG TABLET PO (08:30)
[2023-08-12] MEDS: Cyanocobalamin (Vitamin B-12) 1,000 MCG TABLET 1000 MCG PO (08:31)
[2023-08-12] MEDS: Lactated Ringers 1,000 ML 100 ML IVCONT (08:33)
[2023-08-12] MEDS: Dorzolamide/Timolo 2.23%/0.68% 10 ML DRBTL 1 DROP EYE-BOTH (08:40)
--- NOTE | 2023-08-12 11:12 | PM.DS ---
DS: Providers Provider Date of Service: 08/12/23 Date of admission: 08/09/23 12:47 Primary care physician: Glynn Greco MD Consults: 08/09/23 12:48 Consult to Hospitalist Routine Comment: Consulting Provider: Hospitalist Reason For Exam: asthma, ROBERTO CARLOS, h/o DVT (on Eliquis) DS: Diagnosis Discharge Diagnosis (1) Acute cholecystitis: Status: Acute (2) S/P laparoscopic cholecystectomy: Status: Acute (3) Current use of anticoagulant therapy: Status: Acute (4) Morbid obesity with BMI of 40.0-44.9, adult: Status: Acute (5) Anxiety: Status: Acute DS: Summary Hospital Course Hospital Course: See admitting H and P for full details. Briefly, this 62-year-old woman with a history of extensive left lower extremity DVT following an orthopedic injury 18 years ago is maintained on Eliquis twice a day. She presented with several days of epigastric and right upper quadrant pain and had acute calculous cholecystitis. After attempting to follow the patient's request to avoid surgery, she had ongoing pain and required laparoscopic cholecystectomy. She was continued in the hospital from 08/16/2023 until the day of discharge on 08/19/2023 due to being anticoagulated, having surgery and the need to restart her Eliquis and assure that she was not having ongoing bleeding. At the time of discharge, she was tolerating her diet, had minimal pain, received extensive instructions regarding antibiotics, pain med and follow-up. Overall condition time of discharge is improved Time Spent with Patient Time attestation: Total time managing care of this patient today ____ minutes. Discharge coordination time: Greater than 30 minutes Quality: Safe Use of Opioids Does Pt have an Active Cancer Diagnosis on the Problem List?: No Quality: Stroke Does the patient have a stroke diagnosis?: No Physical Exam Vital Signs: Vital Signs: Last Vital Signs Temp 98.0 F 08/12/23 08:06 Pulse 63 08/12/23 08:06 Resp 18 08/12/23 08:06 BP 153/74 H 08/12/23 08:06 Pulse Ox 98 08/12/23 08:06 O2 Del Method Room Air 08/12/23 08:06 O2 Flow Rate 2 08/10/23 14:55 BMI result Body Mass Index 40.5 DS: Data Data Completed and Pending Completed studies during hospitalization [Text1]: Pending at discharge 08/10/23 13:39 Surgical [PTH] Routine Labs on day of discharge: Laboratory Results - last 24 hr 08/12/23 05:08 WBC 8.4 RBC 3.83 L Hgb 10.4 L Hct 32.6 L MCV 85.1 MCH 27.2 MCHC 31.9 RDW 14.2 Plt Count 251 MPV 10.7 Immature Gran % (Auto) 0.4 Neut % (Auto) 64.2 Lymph % (Auto) 25.2 [place] % (Auto) 9.1 Eos % (Auto) 0.7 Baso % (Auto) 0.4 Lymph # (Auto) 2.1 [place] # (Auto) 0.8 Eos # (Auto) 0.1 Baso # (Auto) 0.0 Abs Immat Gran (auto) 0.03 Absolute Neuts (auto) 5.4 Absolute Nucleated RBC 0.000 Nucleated RBC % (auto) 0.0 Sodium 139 Potassium 3.5 Chloride 108 Carbon Dioxide 24 Anion Gap 11 L BUN 12 Creatinine 0.89 Estim Creat Clear Calc 73.5 Estimated GFR > 60 Random Glucose 105 Calcium 9.0 Total Bilirubin 0.7 AST 46 H ALT 33 H Alkaline Phosphatase 90 Total Protein 6.6 Albumin 3.6 Discharge Plan Discharge Anticipated Discharge Date/Time: 08/12/23 11:15 Patient Disposition: Home, Self-Care Discharge Diagnosis: Acute cholecystitis, s/p lap flaco Referrals: Glynn Greco MD [Primary Care Provider] - 1 Week Sy Jacobson MD [Physician] - 1 Week Discharge Medications: New amoxicillin-pot clavulanate 875-125 mg Tablet 875 mg PO Q12H 7 Days Qty: 13 0RF oxycodone 5 mg tablet 5 mg PO Q4H PRN (Reason: pain) Qty: 20 0RF Rx Instructions: Partial Fill upon patient request. Continued (DME) COMPRESSION STOCKINGS (pantyhose) MID-compression See Rx Instructions .Route .MEDSUPPLY Qty: 2 1RF Rx Instructions: As directed Flovent HFA 220 mcg/actuation HFA aerosol inhaler 2 puff inhalation BID 30 Days Qty: 12 5RF gabapentin 600 mg tablet 600 mg PO TID Qty: 90 5RF atorvastatin 80 mg tablet 80 mg PO DAILY 90 Days Qty: 90 1RF cyanocobalamin (vitamin B-12) 1,000 mcg tablet 1,000 mcg PO DAILY 90 Days Qty: 90 1RF tramadol 50 mg tablet 50 mg PO BID PRN (Reason: pain) 30 Days Qty: 60 0RF Rx Instructions: Take 1 tablet orally 2 times a day ONLY as needed Eliquis 5 mg Tablet 5 mg PO BID Qty: 60 3RF latanoprost 0.005 % drops 1 drp ophthalmic (eye) BEDTIME lorazepam 0.5 mg tablet 0.5 mg PO QAM PRN (Reason: Anxiety) albuterol sulfate 2.5 mg /3 mL (0.083 %) solution for nebulization 2.5 mg inhalation QID PRN (Reason: shortness of breath or wheezing) ergocalciferol (vitamin D2) 1,250 mcg (50,000 unit) capsule 1,250 mcg PO TU albuterol sulfate [Ventolin HFA] 90 mcg/actuation HFA aerosol inhaler 2 puff inhalation Q6H PRN (Reason: shortness of breath or wheezing) 30 Days Qty: 8.5 12RF Rx Instructions: 2 puffs Inhalation every 6 hrs as needed zolpidem [Ambien] 10 mg tablet 10 mg PO BEDTIME venlafaxine 150 mg capsule,extended release 24hr 150 mg PO QPM Latuda 40 mg tablet 40 mg PO BEDTIME acetaminophen 325 mg tablet 325 mg PO DAILY PRN (Reason: Pain (Scale Score 4-6)) lithium carbonate 450 mg tablet extended release 450 mg PO BID omeprazole 20 mg capsule,delayed release(DR/EC) 20 mg PO DAILY PRN (Reason: Acid Reflux) dorzolamide-timolol 22.3-6.8 mg/mL drops 1 drp ophthalmic (eye) DAILY Discharge Orders: Discharge Order (Routine); Ordered 08/12/23 Ordered By: Sy Jacobson Diet: Low Fat Diet Activity on Discharge: No heavy lifting Stand Alone Forms: Patient Portal Discharge page Activity Restrictions/Additional Instructions: You had a laparoscopic cholecystectomy performed by Dr. Jacobson. It is normal to experience some neck or shoulder pain from the gas used to inflate your abdomen. It is also normal to have pain or discomfort in your abdomen/belly as well as at the trocar sites (small incisions). This discomfort will resolve over the next 1-3 days, however, if it gets progressively worse, if you should develop worsening pain, nausea, vomiting and cannot keep liquids down, chest pain, difficulty breathing or shortness of breath, fevers over 100F please report to the nearest emergency department. Unless otherwise directed by Dr. Jacobson, you should resume taking your regular medications including Eliquis. You have obstructive sleep apnea and should use your CPAP to minimize breathing complications. If you take the narcotic, you must do CPAP since narcotics make your sleep apnea worse. If you will not use CPAP, you must not take narcotics. You have been prescribed amoxicillin/clavulanic acid, 875mg to be taken twice a day for 1 week. It is important to complete these antibiotics as written. If you have watery diarrhea, please contact Dr. Jacobson at [phone]. Because of your Eliquis, you must not take aspirin, Excedrin, Advil, Aleve, Motrin, Naproxen, Naprosyn or ibuprofen siince they can cause bleeding. Tylenol/acetaminophen is ok. You must not lift more than 20 lb for the next 4 weeks. Strenuous activities can tear out your sutures and cause an incisional hernia that would require another operation. Activities to be avoided include: sports, running, bicycling, yoga, lifting more than 20 lb, digging, gardening, splitting/carrying wood, swimming, hiking uphill, and other activities. If you have questions regarding this specific activity, please check with Dr. Jacobson. If your incisions become red, swollen, tender or draining pus, please contact Dr. Jacobson or go to the nearest emergency department. You can shower when you get home, but do not soak in a tub/no baths. If the right upper abdomen incision where the drain was placed oozes fluid, use a Bandaid & change daily or ass needed. Remove your bandages before showering. Do not soak in a tub or swimming pool until your incisions have completely sealed, usually 2 or more weeks. These tapes will fall off on their own in 1-2 weeks. You do not need to apply another bandage unless your clothing irritates your incisions. If you need to place another Band-Aid on your incisions, be sure to wait until the Steri strip is dry. You have been prescribed narcotic pain medicine that will cause constipation. Please purchase [id number] stool softener known as Colace/docusate, 100 mg. Take 2 tablets with breakfast and the morning and 2 tablets in the evening after dinner until your bowels are moving and urine or longer taking narcotics. Please note that if you are not taking narcotics, the general anesthesia for the procedure can still cause constipation. If you experience diarrhea, stop taking the stool softener medicine. You can take [id number] Tylenol/acetaminophen for pain unless you have an allergy or medical reason you are not not allowed to take these medications. You should also use ice packs to the operative site to help minimize pain and swelling for the first 3 days, or as needed afterwards. Remember that the gallbladder helps to to digest fatty foods. If you eat fried foods; rich, creamy sauces; cheese; gravies or other such heavy, greasy foods, you will likely develop gas and bloating and diarrhea. To minimize this risk, eat a high protein, high-fiber, low-fat diet for the next few weeks. Care Plan Goals: Completing antibiotics, allow postoperative healing, resume Eliquis Health Concerns: Your history of deep vein thrombosis puts you at greater risk for recurrent DVT, monitor your legs, be active walking and continue your Eliquis. Plan of Treatment: Completing antibiotics, allow postoperative healing, resume Eliquis Assessment: Acute calculous cholecystitis, status post lap flaco; history of DVT on Eliquis, obesity, obstructive sleep apnea(use your CPAP), follow-up with your primary care provider
--- NOTE | 2023-08-12 11:18 | MHC.CLN ---
CONSULT: SEE TEACHING RECORD CONSULT FOR LOW FAT DIET PER MD
--- NOTE | 2023-08-12 11:27 | MHC.CM.PN ---
DP: PT HAS BEEN MEDICALLY CLEARED FOR DC HOME, NO SERVICES. PT HAS OWN RIDE HOME.
== END 2023-08-12 13:09 | disposition home or self-care (01) | DRG 263 ==
LOC: HO.ED 11:41 → HO.EDOVER 13:03 → HO.S3 14:48
PROVIDERS: Student in an Organized Health Care Education/Training Program; Admitting Provider Surgery; Emergency Provider Emergency Medicine; PCP Internal Medicine; Visit Provider Surgery
PROC: 0FT44ZZ Resection of Gallbladder, Percutaneous Endoscopic Approach (ICD-10-PCS; CPT 47562; principal; 2023-08-10 11:30)
DX: K80.00 Calculus of gallbladder with acute cholecystitis without obstruction (principal); F33.9 Major depressive disorder, recurrent, unspecified; K76.0 Fatty (change of) liver, not elsewhere classified; E66.01 Morbid (severe) obesity due to excess calories; F41.9 Anxiety disorder, unspecified; G47.33 Obstructive sleep apnea (adult) (pediatric); K82.8 Other specified diseases of gallbladder; E78.00 Pure hypercholesterolemia, unspecified; J45.20 Mild intermittent asthma, uncomplicated; Z86.718 Personal history of other venous thrombosis and embolism; Z68.41 Body mass index [BMI] 40.0-44.9, adult; Z79.899 Other long term (current) drug therapy
CPT/HCPCS: 36415; 74177; 76705; 80048; 80053; 80076; 80178; 81003; 83036; 83690; 84484; 85025; 86850; 86900; 86901; 88300; 88304; 93005; 94660; 99285; C1713; J0690; J1100; J1170; J2250; J2270; J2405; J2543; J3010; Q9965; Q9967

== ENCOUNTER → 2023-08-09 09:45 | Outpatient (BNV) | payer OTHER, SELFPAY | PROVIDERS: Emergency Provider Emergency Medicine; PCP Internal Medicine; Visit Provider Surgery | DX: K81.0 Acute cholecystitis (principal); Z90.49 Acquired absence of other specified parts of digestive tract; Z79.01 Long term (current) use of anticoagulants; E66.01 Morbid (severe) obesity due to excess calories; Z68.41 Body mass index [BMI] 40.0-44.9, adult; F41.9 Anxiety disorder, unspecified | CPT/HCPCS: 47562; 99024; 99222 ==

== ENCOUNTER → 2023-08-09 12:47 | Outpatient (BNV) | payer OTHER, SELFPAY | PROVIDERS: Admitting Provider Surgery; Emergency Provider Emergency Medicine; PCP Internal Medicine; Visit Provider Physician Assistant | DX: K80.50 Calculus of bile duct without cholangitis or cholecystitis without obstruction (principal) | CPT/HCPCS: 99222; 99232 ==

== ENCOUNTER 2023-08-19 08:56 | Outpatient (AMB) | payer OTHER, SELFPAY ==
--- NOTE | 2023-08-19 08:59 | A.OFFVIS_ITS ---
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 She is seen with the help of interpretive services and reports she is doing very well. She denies any diarrhea and is tolerating her diet. She has no significant pain and is pleased with the results. Patient is also interested in restarting the bariatric surgery program. The unfortunate timing of completion of her workup coincided with COVID and a personal COVID infection, and her surgeons departure to a different hospital. She questioned about reentering our program. [facility] Medical History Morbid obesity with BMI of 40.0-44.9, adult Pure hypercholesterolemia Exertional dyspnea Fatigue Cough Lumbar degenerative disc disease Phlegmasia cerulea dolens Obstructive sleep apnea COVID-19 Hyperthyroidism Anxiety Insomnia Obstructive sleep apnea Condyloma acuminata Vitamin B12 deficiency Lung granuloma Phlegmasia cerulea dolens Chronic low back pain Vitamin D deficiency Obesity (BMI 30-39.9) Fibromyalgia Depression Neuropathy DVT (deep venous thrombosis) Asthma DDD (degenerative disc disease) Surgical History S/P laparoscopic appendectomy History of embolectomy Benign neoplasm of neck History of colonoscopy History of bilateral tubal ligation History of carpal tunnel release History of bilateral oophorectomy S/P IVC filter Family History Father Liver cirrhosis Cancer Mother Heart attack Coronary artery disease Asthma Diabetes mellitus Brother No problems noted. Sister No problems noted. Sister No problems noted. Sister No problems noted. Sister No problems noted. Sister No problems noted. Sister No problems noted. Sister No problems noted. Sister No problems noted. Sister No problems noted. Sister No problems noted. Sister No problems noted. Sister No problems noted. Sister No problems noted. Paternal Aunt Colon cancer Son Histiocytosis Son No problems noted. Son No problems noted. 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 No hernias are appreciated. Her umbilical dressing was room, there was some malodorous debris and the patient's skin fold but no evidence of infection. Results Reviewed Results Reviewed: Pathology demonstrated acute, hemorrhagic and gangrenous calculous cholecystitis with no evidence of malignancy, which was discussed with the patient. Assessment & Plan Assessment & Plan (1) S/P laparoscopic cholecystectomy: Code(s): Z90.49 - Acquired absence of other specified parts of digestive tract (2) Morbid obesity with BMI of 40.0-44.9, adult: Code(s): E66.01 - Morbid (severe) obesity due to excess calories; Z68.41 - Body mass index [BMI] 40.0-44.9, adult (3) Current use of anticoagulant therapy: Code(s): Z79.01 - joint terminal attack controller (current) use of anticoagulants (4) H/O deep venous thrombosis: Code(s): Z86.718 - Personal history of other venous thrombosis and embolism Plan Instructions regarding diet and activity reviewed and apparently understood. The importance of allowing another month before left more than 20 lb to minimize risk of incisional hernia was discussed. Patient's questions seemed to be satisfactorily answered. Handouts on a low-fat diet were provided to the patient and the patient will be seen for a 1 hour follow-up to re-enter the surgical weight loss program. She was also given [place] language handouts regarding protein supplements and encouraged to purchase celebrate rebuild in our gift shop since she will be transitioning to this. At her follow-up visit, we will going to greater detail regarding surgical options. The importance of a high-protein/high-fiber diet and avoiding carbohydrates and fats was discussed. Patient is interested in sleeve gastrectomy. Coding Level of Care Code Global (78990) Diagnoses S/P laparoscopic cholecystectomy Z90.49 Morbid obesity with BMI of 40.0-44.9, adult E66.01; Z68.41 Current use of anticoagulant therapy Z79.01 H/O deep venous thrombosis Z86.718
[2023-08-19 09:12] VITALS: BP 146/73; PULSE 76; TEMP 36.3; O2SAT 99; BMI 40.2
== END 2023-08-19 09:37 | disposition home or self-care (01) ==
PROVIDERS: PCP Internal Medicine; Visit Provider Surgery
DX: Z90.49 Acquired absence of other specified parts of digestive tract (principal); E66.01 Morbid (severe) obesity due to excess calories; Z68.41 Body mass index [BMI] 40.0-44.9, adult; Z79.01 Long term (current) use of anticoagulants; Z86.718 Personal history of other venous thrombosis and embolism
CPT/HCPCS: 99024

== ENCOUNTER → 2023-08-19 08:56 | Outpatient (BNVA) | payer OTHER, SELFPAY | PROVIDERS: PCP Internal Medicine; Visit Provider Surgery ==

== ENCOUNTER 2023-08-26 10:38 | Outpatient (AMB) | payer OTHER, SELFPAY ==
--- NOTE | 2023-08-26 10:50 | MHC.PC.OV ---
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: No Accompanied by: Self / Same As Patient Allergies No Known Allergies Allergy (Verified 08/26/23 11:31) Medication List - Last Reconciled 08/26/23 by Glynn Greco MD acetaminophen 325 mg PO DAILY PRN albuterol sulfate 2.5 mg inhalation QID PRN albuterol sulfate 90 mcg/actuation (Ventolin HFA) 2 puffs inhalation Q6H PRN 30 days apixaban (Eliquis) 5 mg PO BID atorvastatin 80 mg PO DAILY 90 days [COMPRESSION STOCKINGS (pantyhose) As directed] cyanocobalamin (vitamin B-12) 1,000 mcg PO DAILY 90 days dorzolamide-timolol 22.3-6.8 mg/mL 1 drp ophthalmic (eye) DAILY ergocalciferol (vitamin D2) 1,250 mcg PO TU Flovent HFA 220 mcg/actuation (fluticasone propionate) 2 puffs inhalation BID 30 days NS gabapentin 600 mg PO TID latanoprost 0.005% 1 drp ophthalmic (eye) BEDTIME lithium carbonate ER 450 mg PO BID lorazepam 0.5 mg PO QAM PRN lurasidone (Latuda) 40 mg PO BEDTIME omeprazole 20 mg PO DAILY PRN tramadol 50 mg PO BID PRN 30 days venlafaxine ER 150 mg PO QPM zolpidem (Ambien) 10 mg PO BEDTIME Tobacco use date assessed: 08/26/23 Fall risk assessment: No Falls in past year Last assessed Fall Risk: 08/26/23 Dental Screening Dental Screen Date: 08/26/23 Did you have a dental visit in the last 12 months?: Yes Did you have a dental problem in the last 6 months where you did not have access to dental care?: No Was dental information given to patient?: Patient has dentist HPI f/u gallbladder removal HPI Details Patient comes in today for her F follow up visit She underwent laparoscopic cholecystectomy with Dr. Jacobson at [facility] a couple of weeks ago on 08/10/[address] Jacobson for surgery follow up last week and advised that things are proceeding as expected She is going back to the weight loss program again in a few weeks States that she is currently still not back to eating normally as her stomach still feels sore, especially around her umbilical area Has noticed still some drainage from the umbilical area and is questioning if this is normal as it has been 2 weeks now since her surgery States that she has been cleaning her umbilical area and abdominal incisions with plain soap and water and is not applying anything else on them - notes that all of her other incisions have healed up except for the one over her umbilical area She has also been back on her Eliquis for almost 2 weeks now without any problems She denies any headaches or dizziness; denies any fever Denies any chest pains, no SOB No nausea/vomiting and no change in bowel habits but has noticed that her stools are mostly soft nowadays States that she also needs Rx refills for adult pull ups and bed liners for her OAB and urinary incontinence [facility] Medical History Morbid obesity with BMI of 40.0-44.9, adult Pure hypercholesterolemia Exertional dyspnea Fatigue Cough Lumbar degenerative disc disease Phlegmasia cerulea dolens Obstructive sleep apnea COVID-19 Hyperthyroidism Anxiety Insomnia Obstructive sleep apnea Condyloma acuminata Vitamin B12 deficiency Lung granuloma Phlegmasia cerulea dolens Chronic low back pain Vitamin D deficiency Obesity (BMI 30-39.9) Fibromyalgia Depression Neuropathy DVT (deep venous thrombosis) Asthma DDD (degenerative disc disease) Surgical History S/P laparoscopic appendectomy History of embolectomy Benign neoplasm of neck History of colonoscopy History of bilateral tubal ligation History of carpal tunnel release History of bilateral oophorectomy S/P IVC filter Family History Father Liver cirrhosis Cancer Mother Heart attack Coronary artery disease Asthma Diabetes mellitus Brother No problems noted. Sister No problems noted. Sister No problems noted. Sister No problems noted. Sister No problems noted. Sister No problems noted. Sister No problems noted. Sister No problems noted. Sister No problems noted. Sister No problems noted. Sister No problems noted. Sister No problems noted. Sister No problems noted. Sister No problems noted. Paternal Aunt Colon cancer Son Histiocytosis Son No problems noted. Son No problems noted. 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 1. Little interest or pleasure in doing things: nearly every day 2. Feeling down, depressed, or hopeless: nearly every day 3. Trouble falling or staying asleep, or sleeping too much: several days 4. Feeling tired or having little energy: nearly every day 5. Poor appetite or overeating: not at all 6. Feeling bad about yourself - or that you are a failure or have let yourself or your family down: not at all 7. Trouble concentrating on things, such as reading the newspaper or watching television: nearly every day 8. Moving or speaking so slowly that other people could have noticed. Or the opposite - being so fidgety or restless that you have been moving around a lot more than usual: not at all 9. Thoughts that you would be better off or of hurting yourself in some way: not at all Total score: 13 Depression Screening Interpretation: Positive Depression Screening Follow-up: Existing condition and In treatment Depression Screening Done: Yes 17903 - PHQ-9 Billing: Yes Source: Developed by Drs. Jamel Hong, Carmen Villanueva, Gilbert Jara and colleagues, with an educational son from [employer]. Thrive Questionnaire Date Thrive assessed: 08/26/23 I am a: Patient What is your living situation today?: I have a steady place to live Within the past 12 months, did the food you bought not last and you didn't have the money to get more?: Never true Within the past 12 months, did you worry whether your food would run out before you got money to buy more?: Never true Do you have trouble paying for medicines?: No Do you have trouble getting transportation to medical appointments?: No Do you have trouble paying your heating and electricity bill?: No Do you have trouble taking care of your child, family member or friend?: No Do you have trouble with day-to-day activities such as bathing, preparing meals, shopping, managing finances, etc.?: No Are you currently unemployed and looking for a job?: No Are you interested in more education?: No Please select the resources that you would like help with: None Currently or been in a relationship where the following occur: no concerns reported AUDIT C Alcohol Use Questionnaire (AUDIT-C) 1. How often do you have a drink containing alcohol?: Never 2. How many drinks containing alcohol do you have on a typical day when you are drinking?: 1 or 2 3. How often do you have six or more drinks on one occasion?: Never Total Score: 0 Score Reviewed/Action Taken: Yes FIDELIA-7 AMB Questionnaire FIDELIA-7 Date FIDELIA - 7 assessed: 08/26/23 Feeling nervous, anxious, or on edge: 0 = Not at all Not being able to stop or control worryin = Not at all Worrying too much about different things: 0 = Not at all Trouble relaxin = Not at all Being so restless that it is hard to sit still: 0 = Not at all Becoming easily annoyed or irritable: 0 = Not at all Feeling afraid as if something awful might happen: 0 = Not at all Total FIDELIA-7 score (0-4 normal; 5-9 mild; 10-14 moderate; 15-21 severe): 0 Source: Developed by Drs. Jamel Hong, Carmen Villanueva, Gilbert Jara and colleagues, with an educational son from [employer]. Review of Systems Const Denies chills, Reports fatigue (chronic), Denies fever(s) and Denies headache(s) ENT Denies dysphagia, Denies dizziness, Denies otalgia, Denies headache(s), Reports neck pain, Denies odynophagia and Denies sore throat Card Denies chest pain, Denies palpitations and Reports dyspnea on exertion (mild; chronic) Resp Denies cough, Reports dyspnea on exertion (mild; chronic) and Denies wheezing GI Reports abdominal pain (mostly (+) soreness around the periumbilical area), Denies constipation, Denies dysphagia, Denies heartburn, Reports loose stools (lately - s/p cholecytectomy), Denies nausea, Denies odynophagia and Denies vomiting Denies difficulty voiding, Denies nocturia, Denies dysuria and Reports urinary incontinence Musc Reports back pain, Reports arthralgias (involving multiple joints - chronic), Reports neck pain and Reports stiffness Skin/Breast Details: (+) minimal drainage from the umbilical incision she had a couple of weeks ago Neuro Denies dizziness, Denies headache(s) and Reports paresthesias (over the lateral aspect of the right thigh - on and off) Psych Denies anxiety Endo Reports fatigue (chronic) and Denies palpitations Aller/Immun Denies wheezing Physical exam (Primary Care) Vital Signs: Last Vital Signs Pulse 72 08/26/23 10:51 BP 128/82 08/26/23 10:51 Pulse Ox 98 08/26/23 10:51 Oxygen Delivery Method Room Air 08/26/23 10:51 BMI result Body Mass Index 40.2 Tobacco/Smoking Status: Tobacco use Status Tobacco use date assessed 08/26/23 08/26/23 10:59 Patient Tobacco Use Status Never used Tobacco 08/26/23 10:59 e-Cigarette/Vaping Use Never Used 08/26/23 10:59 PHQ-9: PHQ-9 Score PHQ-9: Total score 13 08/26/23 10:59 Depression Screening Interpretation: Positive Depression Screening Follow-up: Existing condition and In treatment Thrive Assessment: Date of Thrive Assessment Date Thrive assessed 08/26/23 08/26/23 10:59 Currently or been in a relationship where the following occur: no concerns reported Const General: no acute distress and alert HENMT Ears: TM's normal bilaterally and EAC's normal Throat: Yes posterior oropharynx normal and Yes tonsils normal (no TP congestion) Neck Neck: Yes no lymphadenopathy Resp Auscultation: clear to auscultation bilaterally, no rales and no wheezes Cardio Rate: regular rate Rhythm: regular rhythm Heart sounds: no murmurs GI Other: (+) healed incisions over the abdominal wall; (+) minimal clear drainage from the umbilicus Palpation (GI): Soft to palpation, Tenderness to palpation present (GI) (mild) periumbilically, no guarding and not rigid Auscultation: normal bowel sounds Back/Spine/Pelvis Cervical Spine: cervical muscular tenderness (bilateral) Thoracic/Lumbar Spine: paraspinal muscle tenderness bilaterally and lumbar spinal tenderness (mild) Extrem Other: (+) few tender small nodules on the dorsum of both feet General: No clubbing, No cyanosis and Yes edema (1+ bipedal edema) Right upper extremity: wrist Details: tenderness Location: of the volar wrist; Phalen's positive Left upper extremity: hand Details: abnormal ROM of finger Details: unable to extend Location: of the 4th digit Right lower extremity: knee Details: tenderness and swelling (mild) Assessment and Plan Assessment & Plan (1) S/P laparoscopic cholecystectomy: Comment: 08/10/[address] Jacobson at [facility] Code(s): Z90.49 - Acquired absence of other specified parts of digestive tract Plan: Patient is currently still complaining of soreness/tenderness around the periumbilical and over the umbilical area, which appears to have some minimal drainage Will start her empirically on Cephalexin 500 mg Q 8 hours x 7 days and patient is instructed to continue with daily wound care Have advised to check back with surgery ALFRED if her periumbilical pain and discomfort and umbilical drainage gets worse (and do not improve despite empiric Abx Tx) over the next week or two (2) Pure hypercholesterolemia: Code(s): E78.00 - Pure hypercholesterolemia, unspecified Plan: She has not had any follow up labs done recently Reinforced low cholesterol diet Continue Atorvastatin 80 mg QD Will recheck her labs and fasting lipids in 4 months for follow-up (3) Elevated blood pressure reading: Code(s): R03.0 - Elevated blood-pressure reading, without diagnosis of hypertension Plan: Her BP today is still well-controlled Reinforced low sodium diet Patient reminded to continue monitoring her BP regularly (4) Asthma: Comment: As per spirometry. There is no significant obstructive disorder, So it seems that she has only mild intermittent bronchial asthma. Explained to her through the automotive parts interpreter and she understands well. TX : No need to use Flovent. Use ProAir 2 puffs Q 4-6 hours p.r.n., but avoid to use every day. Code(s): J45.909 - Unspecified asthma, uncomplicated Qualifiers: Asthma severity: moderate Asthma persistence: persistent Asthma complication type: with acute exacerbation Qualified Code(s): J45.41 - Moderate persistent asthma with (acute) exacerbation Plan: Stable - continue Flovent HFA Aerosol 220 MCG/ACT 2 Inhalations Twice a day and Ventolin HFA 108 (90 Base) MCG/ACT, 2 puffs every 6 hrs as needed Follow up with pulmonary as scheduled (5) Obstructive sleep apnea: Code(s): G47.33 - Obstructive sleep apnea (adult) (pediatric) Plan: Has not been able to use her CPAP device for a while now due to poor mask fit Follow up with Sleep Medicine as scheduled (6) 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 - goes to the Coumadin clinic for PT/INR monitoring Code(s): I80.209 - Phlebitis and thrombophlebitis of unspecified deep vessels of unspecified lower extremity Qualifiers: Laterality: unspecified laterality Qualified Code(s): I80.209 - Phlebitis and thrombophlebitis of unspecified deep vessels of unspecified lower extremity Plan: Was on Warfarin Sodium Tablet, 5 MG, 2 tablets QD in the past but was switched over to Eliquis 5 mg BID by hematology a few months ago and she has been much happier since as she no longer has to continue adjusting and checking her dose - continue Eliquis 5 mg BID Follow up with hematology as scheduled (7) Stasis edema of both lower extremities: Code(s): I87.303 - Chronic venous hypertension (idiopathic) without complications of bilateral lower extremity Plan: She is encouraged to continue to keep her legs elevated as often as she can throughout the day to help minimize her edema Was provided with Rx for compression stockings (pantyhose style) previously and is encouraged to continue using these as often as she can to also help control her symptoms of edema (8) Fibromyalgia: Code(s): M79.7 - Fibromyalgia Plan: Continue Tizanidine HCl Tablet, 4 MG, 1 tablet, Orally, Three times a day as needed for muscle pains and Tylenol Tablet, 325 MG, 2 tablets Orally every 12 hrs as needed as well as Gabapentin 600 mg TID for pain control/management - Rx refilled She is again encouraged to try to stay active and exercise regularly to help manage her fibromyalgia symptoms. (9) Neuropathy: Code(s): G62.9 - Polyneuropathy, unspecified Plan: Continue Gabapentin 600 MG 1 tablet 3 times a day Will consider repeating NCV if symptoms persist/worsen (10) Carpal tunnel syndrome of right wrist: Code(s): G56.01 - Carpal tunnel syndrome, right upper limb Plan: (+) Hx of median nerve release a few years ago but symptoms appear to have recurred since and has gotten worse lately Offered to send her for repeat MCV & EMG but patient declined - states that she still remembers how painful the procedure was a few years ago and prefers not to get it done again if she can avoid it She was referred back to Dr. Fregoso for further management and consideration for repeat CTS surgery (11) Vitamin B12 deficiency: Code(s): E53.8 - Deficiency of other specified B group vitamins Plan: Continue Vitamin B12 1000 mcg QD (12) Vitamin D deficiency: Code(s): E55.9 - Vitamin D deficiency, unspecified Plan: Continue Vitamin D2 57485 units once a week (13) Insomnia: Code(s): G47.00 - Insomnia, unspecified Qualifiers: Insomnia type: unspecified Qualified Code(s): G47.00 - Insomnia, unspecified Plan: Sleep hygiene reinforced Continue Zolpidem 10 mg Q HS PRN (14) Anxiety: Code(s): F41.9 - Anxiety disorder, unspecified Plan: Continue Lorazepam 0.5 mg QD PRN (15) Depression: Comment: Recurrent MDD Code(s): F32.9 - Major depressive disorder, single episode, unspecified Qualifiers: Depression Type: major depressive disorder Major depression recurrence: recurrent Active/Remission status: currently active Major depression episode severity: unspecified Qualified Code(s): F33.9 - Major depressive disorder, recurrent, unspecified Plan: Continue Venlafaxine ER 150 mg QD, Latuda 40 mg Q HS and [place] ER 450 mg BID Follow up with psychiatry as scheduled (16) Obesity (BMI 30-39.9): Comment: She is actually morbidly obese with BMI of 41. Again stressed about losing weight, she is not able to do any active exercise. Trying to decrease her calories intake as much as she can, Code(s): E66.9 - Obesity, unspecified Plan: Reinforced diet/exercise as tolerated/lose weight Plan Follow up in 4 months Orders: Orders Comprehensive [place]. Panel Fast 4 Months E78.00 - Pure hypercholesterolemia, unspecified Lipid Panel 4 Months E78.00 - Pure hypercholesterolemia, unspecified TSH reflex Free T4 4 Months E78.00 - Pure hypercholesterolemia, unspecified Vitamin B12 and Folate 4 Months E53.8 - Deficiency of other specified B group vitamins Vitamin D 25-OH Total 4 Months E55.9 - Vitamin D deficiency, unspecified Complete Blood Count Auto Diff 4 Months I10 - Essential (primary) hypertension UA CC w/rflx Micro + Cult 4 Months R30.0 - Dysuria Medications: New cephalexin 500 mg PO Q8H 7 days 21 caps 0RF Coding Level of Care Code Est Pt Level 4 (05556) Diagnoses S/P laparoscopic cholecystectomy Z90.49 Pure hypercholesterolemia E78.00 Elevated blood pressure reading R03.0 Moderate persistent asthma with acute exacerbation J45.41 Asthma severity: moderate Asthma persistence: persistent Asthma complication type: with acute exacerbation Obstructive sleep apnea G47.33 Phlegmasia cerulea dolens, unspecified laterality I80.209 Laterality: unspecified laterality Stasis edema of both lower extremities I87.303 Fibromyalgia M79.7 Neuropathy G62.9 Carpal tunnel syndrome of right wrist G56.01 Vitamin B12 deficiency E53.8 Vitamin D deficiency E55.9 Insomnia, unspecified type G47.00 Insomnia type: unspecified Anxiety F41.9 Episode of recurrent major depressive disorder, unspecified depression episode severity F33.9 Depression Type: major depressive disorder Major depression recurrence: recurrent Active/Remission status: currently active Major depression episode severity: unspecified Obesity (BMI 30-39.9) E66.9
[2023-08-26 10:51] VITALS: BP 128/82; PULSE 72; O2SAT 98; BMI 40.2
== END 2023-08-26 11:41 | disposition home or self-care (01) ==
PROVIDERS: PCP Internal Medicine; Visit Provider Internal Medicine
DX: E78.00 Pure hypercholesterolemia, unspecified (principal); F33.9 Major depressive disorder, recurrent, unspecified; E66.01 Morbid (severe) obesity due to excess calories; Z68.41 Body mass index [BMI] 40.0-44.9, adult; Z90.49 Acquired absence of other specified parts of digestive tract; I80.209 Phlebitis and thrombophlebitis of unspecified deep vessels of unspecified lower extremity; R03.0 Elevated blood-pressure reading, without diagnosis of hypertension; J45.41 Moderate persistent asthma with (acute) exacerbation; G47.33 Obstructive sleep apnea (adult) (pediatric); I87.303 Chronic venous hypertension (idiopathic) without complications of bilateral lower extremity; M79.7 Fibromyalgia; G62.9 Polyneuropathy, unspecified
CPT/HCPCS: 99214

== ENCOUNTER 2023-09-05 10:44 | Outpatient (REF) | payer OTHER, SELFPAY ==
[2023-09-05 15:24] LABS: CT PCR NOT DETECTED (Not Detect.); NG PCR NOT DETECTED (Not Detect.)
[2023-09-06 12:40] LABS: BV Int Neg Control Negative (Negative); BV Int Pos Control Positive (Positive)
== END 2023-09-05 10:45 | disposition home or self-care (01) ==
LOC: HO.LNP 10:44
PROVIDERS: PCP Internal Medicine; Visit Provider Obstetrics & Gynecology
DX: N76.0 Acute vaginitis (principal); N90.9 Noninflammatory disorder of vulva and perineum, unspecified
CPT/HCPCS: 0353U; 87480; 87510; 87660

== ENCOUNTER 2023-09-05 10:44 | Outpatient (AMB) | payer OTHER, SELFPAY ==
--- NOTE | 2023-09-05 11:05 | A.OFFVIS_ITS ---
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 [facility] Medical History Morbid obesity with BMI of 40.0-44.9, adult Pure hypercholesterolemia Exertional dyspnea Fatigue Cough Lumbar degenerative disc disease Phlegmasia cerulea dolens Obstructive sleep apnea COVID-19 Hyperthyroidism Anxiety Insomnia Obstructive sleep apnea Condyloma acuminata Vitamin B12 deficiency Lung granuloma Phlegmasia cerulea dolens Chronic low back pain Vitamin D deficiency Obesity (BMI 30-39.9) Fibromyalgia Depression Neuropathy DVT (deep venous thrombosis) Asthma DDD (degenerative disc disease) Surgical History S/P laparoscopic appendectomy History of embolectomy Benign neoplasm of neck History of colonoscopy History of bilateral tubal ligation History of carpal tunnel release History of bilateral oophorectomy S/P IVC filter Family History Father Liver cirrhosis Cancer Mother Heart attack Coronary artery disease Asthma Diabetes mellitus Brother No problems noted. Sister No problems noted. Sister No problems noted. Sister No problems noted. Sister No problems noted. Sister No problems noted. Sister No problems noted. Sister No problems noted. Sister No problems noted. Sister No problems noted. Sister No problems noted. Sister No problems noted. Sister No problems noted. Sister No problems noted. Paternal Aunt Colon cancer Son Histiocytosis Son No problems noted. Son No problems noted. 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) Alcohol intake: former Patient Tobacco Use Status: Never used Tobacco e-Cigarette/Vaping Use: Never Used Second Hand Smoke Exposure: No Patient : No service: No Current occupational status: disabled Current occupation: right hand Cognitive needs: Yes (cane) Hearing needs: No Vision needs: Yes Female Reproductive History Menstrual control method: permanent sterilization Review of Systems Const All systems reviewed & are unremarkable except as noted in HPI and below Physical Exam Vital Signs: Last Vital Signs BP 122/84 09/05/23 11:09 BMI result Body Mass Index 40.0 General: Yes no CVA tenderness External Female Exam: normal external appearance, normal appearance of the urethra and other (Two raised lesions on months pubis 2 cm each) Speculum Exam - Vagina: normal appearance of the vagina, normal palpation, no lesions and no masses Speculum Exam - Cervix: normal appearance of the cervix, normal palpation, no lesions, no masses and nontender Bimanual exam- vagina & uterus: normal bimanual exam, normal palpation, uterine size normal, normal palpation, uterine shape normal, No Cervical tenderness present and non-tender Bimanual Exam- Adnexa, other: normal adnexae Back/Spine/Pelvis Back: no CVA tenderness Assessment & Plan Assessment & Plan (1) Vulvovaginitis: Code(s): N76.0 - Acute vaginitis Plan: GC/CT, Bacterial Vaginosis panel taken, Terazol 0.8% q.h.s. for 3 days was sent to the patient's pharmacy. The patient was instructed to call if symptoms don't improve in 48 hours. (2) Lesion of female perineum: Comment: 2 lesions on mons pubis Code(s): N90.9 - Noninflammatory disorder of vulva and perineum, unspecified Plan: Discussed with the patient the finding on mons pubis, recommended biopsy. Instructions given the patient to schedule a 2 week biopsy appointment Medications: New terconazole 0.8% 1 appful vaginal BEDTIME 20 grams 0RF 3 days Coding Level of Care Code New Pt Level 3 (21237) Diagnoses Vulvovaginitis N76.0 Lesion of female perineum N90.9
[2023-09-05 11:09] VITALS: BP 122/84; BMI 40.0
== END 2023-09-05 11:57 | disposition home or self-care (01) ==
LOC: HO.HWS 10:44
PROVIDERS: PCP Internal Medicine; Visit Provider Obstetrics & Gynecology
DX: N76.0 Acute vaginitis (principal)
CPT/HCPCS: 99203

== ENCOUNTER 2023-10-19 08:37 | Outpatient (REF) | payer MEDICARE, MEDICAID, SELFPAY | END 2023-10-19 08:38 | disposition home or self-care (01) | LOC: HO.LNP 08:37 | PROVIDERS: PCP Internal Medicine; Visit Provider Obstetrics & Gynecology | DX: N90.9 Noninflammatory disorder of vulva and perineum, unspecified (principal) | CPT/HCPCS: 11104; 56605; 56606; 88305; 88312 ==

== ENCOUNTER 2023-10-19 08:37 | Outpatient (AMB) | payer MEDICARE, MEDICAID, SELFPAY ==
[2023-10-19 08:57] VITALS: BP 130/82; BMI 40.0
--- NOTE | 2023-10-19 08:57 | A.OFFVIS_ITS ---
Intake Vital Signs 10/19/23 08:57 Height 5 ft 3 in Weight 226 lb BMI 40.0 BP 130/82 Intake Visit Reasons: Vulva BX Assembly Hand Required: Yes Assembly Hand Language: Mechanic Foreman Name: Bhumi Delvalle Information Interpreted: non-clinical & clinical Power Shovel Operator: Power Shovel Operator Present (Bhumi) Allergies No Known Allergies Allergy (Verified 10/19/23 09:01) Is last menstrual period known: No Post menopausal: Yes Patient : No PFSH Medical History Morbid obesity with BMI of 40.0-44.9, adult Pure hypercholesterolemia Exertional dyspnea Fatigue Cough Lumbar degenerative disc disease Phlegmasia cerulea dolens Obstructive sleep apnea COVID-19 Hyperthyroidism Anxiety Insomnia Obstructive sleep apnea Condyloma acuminata Vitamin B12 deficiency Lung granuloma Phlegmasia cerulea dolens Chronic low back pain Vitamin D deficiency Obesity (BMI 30-39.9) Fibromyalgia Depression Neuropathy DVT (deep venous thrombosis) Asthma DDD (degenerative disc disease) Surgical History S/P laparoscopic appendectomy History of embolectomy Benign neoplasm of neck History of colonoscopy History of bilateral tubal ligation History of carpal tunnel release History of bilateral oophorectomy S/P IVC filter Family History Father Liver cirrhosis Cancer Mother Heart attack Coronary artery disease Asthma Diabetes mellitus Brother No problems noted. Sister No problems noted. Sister No problems noted. Sister No problems noted. Sister No problems noted. Sister No problems noted. Sister No problems noted. Sister No problems noted. Sister No problems noted. Sister No problems noted. Sister No problems noted. Sister No problems noted. Sister No problems noted. Sister No problems noted. Paternal Aunt Colon cancer Son Histiocytosis Son No problems noted. Son No problems noted. 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) Alcohol intake: former Patient Tobacco Use Status: Never used Tobacco e-Cigarette/Vaping Use: Never Used Second Hand Smoke Exposure: No service: No Current occupational status: disabled Current occupation: right hand Cognitive needs: Yes (cane) Hearing needs: No Vision needs: Yes Female Reproductive History Menstrual control method: permanent sterilization Physical Exam Vital Signs: Last Vital Signs BP 130/82 10/19/23 08:57 BMI result Body Mass Index 40.0 Office Procedures PERIOPERATIVE NURSE Biopsy Before the procedure was started d/w patient the procedure, alternatives ( do nothing, medical rx), & all the risks associated with the procedure ( bleeding , infection, vulvar scarring, painful intercourse, injury to vessels, possible need for transfusion with all its risks) then patient signed the consent. Preop dx: Right and left months pubis lesions, right and left abdominal wall lesions Op: Left vulvar lesion excision Post op: Same Anesthesia: Lidocaine 1% 5 cc used Procedure: Using betadine the area was scrubbed and draped in the usual manner. 5 cc of lidocaine was used for anesthesia at the Right and left months pubis lesions, right and left abdominal wall lesions area ; using punch biopsy forceps and pickup the Right and left months pubis lesions, right and left abdominal wall lesions were biopsied. Pressure was used for hemostasis. The patient tolerated the procedure well. Discharge Instructions: The patient was instructed to schedule an appointment in 2 weeks for follow-up and to call if temp>100.4, area of the biopsy redness or pain, nausea/vomiting. This note was generated with a voice recognition program. Some errors may have been overlooked during the review of this note. Sometimes these errors may affect the content or meaning of a given sentence. 42489-Pthsll of Vulva/Perineum 48533-Fcctlt of Vulva/Perineum, additional site (3) Procedure code (CPT) selection complete Assessment & Plan Assessment & Plan (1) Lesion of female perineum: Comment: 2 lesions on mons pubis: Right and left 2 Abdominal wall lesions : right and left Code(s): N90.9 - Noninflammatory disorder of vulva and perineum, unspecified Orders: Orders AMB PERIOPERATIVE NURSE Biopsy Today N90.9 - Noninflammatory disorder of vulva and perineum, unspecified Coding Level of Care Code Procedure Only Diagnoses Lesion of female perineum N90.9 CPT Codes PERIOPERATIVE NURSE Biopsy - CPT: 51319-Gcfzdl of Vulva/Perineum ([id number]) PERIOPERATIVE NURSE Biopsy - CPT: 97793-Vuunum of Vulva/Perineum, additional site ([id number])
== END 2023-10-19 09:31 | disposition home or self-care (01) ==
LOC: HO.HWS 08:37
PROVIDERS: PCP Internal Medicine; Visit Provider Obstetrics & Gynecology
DX: N90.9 Noninflammatory disorder of vulva and perineum, unspecified (principal); L82.1 Other seborrheic keratosis
CPT/HCPCS: 11104; 11105; 56605; 56606

== ENCOUNTER 2023-12-05 08:35 | Outpatient (AMB) | payer OTHER, SELFPAY ==
--- NOTE | 2023-12-05 08:40 | A.OFFVIS_ITS ---
Intake Vital Signs 12/05/23 08:44 Height 5 ft 3 in BP 122/80 Intake Visit Reasons: Biopsy BX results Special Weapons And Tactics Officer Required: Yes Special Weapons And Tactics Officer Language: Cutter Operator Tile Name: Dereck [id number] Information Interpreted: non-clinical & clinical Allergies No Known Allergies Allergy (Verified 12/05/23 08:45) HPI HPI Comments History of Present Illness Details Presenting for follow-up after vulvar biopsies, doing well with no complaints. The pathology showed the following: A. Vulva, right mons pubic lesion, biopsy: Benign skin with mild acanthosis; negative for dysplasia. B. Vulva, left mons pubic lesion, biopsy: Seborrheic keratosis. C. Skin, right abdominal wall lesion, biopsy: Benign keratosis. D. Skin, left abdominal wall lesion, biopsy: Seborrheic keratosis PFS Medical History Morbid obesity with BMI of 40.0-44.9, adult Pure hypercholesterolemia Exertional dyspnea Fatigue Cough Lumbar degenerative disc disease Phlegmasia cerulea dolens Obstructive sleep apnea COVID-19 Hyperthyroidism Anxiety Insomnia Obstructive sleep apnea Condyloma acuminata Vitamin B12 deficiency Lung granuloma Phlegmasia cerulea dolens Chronic low back pain Vitamin D deficiency Obesity (BMI 30-39.9) Fibromyalgia Depression Neuropathy DVT (deep venous thrombosis) Asthma DDD (degenerative disc disease) Surgical History S/P laparoscopic appendectomy History of embolectomy Benign neoplasm of neck History of colonoscopy History of bilateral tubal ligation History of carpal tunnel release History of bilateral oophorectomy S/P IVC filter Family History Father Liver cirrhosis Cancer Mother Heart attack Coronary artery disease Asthma Diabetes mellitus Brother No problems noted. Sister No problems noted. Sister No problems noted. Sister No problems noted. Sister No problems noted. Sister No problems noted. Sister No problems noted. Sister No problems noted. Sister No problems noted. Sister No problems noted. Sister No problems noted. Sister No problems noted. Sister No problems noted. Sister No problems noted. Paternal Aunt Colon cancer Son Histiocytosis Son No problems noted. Son No problems noted. 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) Alcohol intake: former Patient Tobacco Use Status: Never used Tobacco e-Cigarette/Vaping Use: Never Used Second Hand Smoke Exposure: No service: No Current occupational status: disabled Current occupation: right hand Cognitive needs: Yes (cane) Hearing needs: No Vision needs: Yes Review of Systems Const All systems reviewed & are unremarkable except as noted in HPI and below Reports as per HPI and Reports no additional complaints GI Reports no additional complaints Reports no additional complaints Physical Exam Vital Signs: Last Vital Signs BP 122/80 12/05/23 08:44 Assessment & Plan Assessment & Plan (1) Lesion of female perineum: Comment: 2 lesions on mons pubis: Right and left 2 Abdominal wall lesions : right and left Code(s): N90.9 - Noninflammatory disorder of vulva and perineum, unspecified Plan: Discussed with the patient the results of the pathology of the perineal lesions, will refer to dermatology for further management, all questions answered, the patient verbalized understanding. Instructed the patient to call our office back in case a referral appointment is not scheduled, missed or canceled so that we will assist on rescheduling another appointment, the patient verbalized understanding agreed with the plan. Orders: Referrals Dermatology Referral N90.9 - Noninflammatory disorder of vulva and perineum, unspecified Coding Level of Care Code Est Pt Level 3 (28206) Diagnoses Lesion of female perineum N90.9
[2023-12-05 08:44] VITALS: BP 122/80
== END 2023-12-05 08:56 | disposition home or self-care (01) ==
PROVIDERS: PCP Internal Medicine; Visit Provider Obstetrics & Gynecology
DX: N90.9 Noninflammatory disorder of vulva and perineum, unspecified (principal)
CPT/HCPCS: 99213

== ENCOUNTER → 2023-12-05 08:35 | Outpatient (BNVA) | payer OTHER, SELFPAY | PROVIDERS: PCP Internal Medicine; Visit Provider Obstetrics & Gynecology | DX: L90.9 Atrophic disorder of skin, unspecified (principal) | CPT/HCPCS: 99212 ==

== ENCOUNTER 2023-12-23 07:07 | Outpatient (REF) | payer OTHER, SELFPAY ==
[2023-12-23 07:30] LABS: MANUAL DIFF FLAG NO
[2023-12-23 08:25] LABS: Basophils Percent Auto 0.7 % (0-2); Eosinophils Absolute Auto 0.1 X10*3/uL (0.0-0.4); Hematocrit 37.8 % (37.0-47.0); Hemoglobin 12.4 g/dl (12.0-16.0); Imm Gran Abs Auto 0.01 X10*3/uL (0.00-0.03); Imm Gran Pct Auto 0.2 % (0.0-0.4); Lymphocytes Absolute Auto 2.5 X10*3/uL (1.2-4.9); Lymphocytes Percent Auto 41.6 % (20-40); Mean Corpuscular HGB Conc 32.8 g/dl (31.0-35.0); Mean Corpuscular Volume 82.4 fL (80.0-98.0); Mean Platelet Volume 10.6 fL (9.4-12.3); Monocytes Absolute Auto 0.5 X10*3/uL (0.1-1.2); Monocytes Percent Auto 7.5 % (2-11); Platelet Count 279 X10*3/uL (160-400); Red Blood Count 4.59 X10*6/uL (4.20-5.50); Red Cell Distribution Width 14.5 % (11.0-16.0); White Blood Count 6.1 X10*3/uL (4.8-10.8)
[2023-12-23 08:26] LABS: Appearance Urine Hazy; Color Urine Yellow; Glucose Urine UA Negative (Negative); Leukocyte Esterase Urine Small (1+) (Negative); Nitrite Urine Negative (Negative); Specific Gravity - Urine 1.025 (1.005-1.025); UMIC TRIGGER UACC YES; Urine Blood Trace (Negative); Urine Ketones Negative (Negative); Urine Protein Negative (Neg-Trace)
[2023-12-23 08:47] LABS: Bacteria Urine 1+ (None Seen); Hyaline Casts Urine 0-2 /LPF (0-2); RBC Urine 0-2 /HPF (0-2); UACC Culture Trigger YES
[2023-12-23 09:05] LABS: Erythrocyte Sedimentation Rate 16 MM/HR (0-20)
[2023-12-23 09:08] LABS: Alanine Aminotransferase 12 U/L (0-31); Albumin Level 4.1 g/dL (3.5-5.0); Alkaline Phosphatase 90 U/L (39-117); Anion Gap 13 (12-20); Aspartate Amino Transferase 20 U/L (5-31); Bilirubin Total 0.7 mg/dL (0.0-1.0); Blood Urea Nitrogen 12 mg/dL (9-16); Calcium 9.3 mg/dL (8.4-10.2); Carbon Dioxide 24 mmol/L (22-29); Chloride 106 mmol/L (96-108); Cholesterol 183 mg/dL (<200); Estimated Glomerular Filt Rate > 60; Glucose Fasting 98 mg/dL (60-99); HDL Cholesterol 49 mg/dL (>40); LDL Cholesterol Calculated 106 mg/dL (<100); Potassium 3.8 mmol/L (3.3-5.1); Sodium 139 mmol/L (135-145); Total Protein 7.6 g/dL (6.5-8.0); Triglycerides 144 mg/dL (<150)
[2023-12-23 09:28] LABS: Folate 10.1 ng/mL (> or = 4.0)
[2023-12-23 09:33] LABS: Vitamin B12 238 pg/mL (200-900)
[2023-12-23 09:36] LABS: TSH reflex Free T4 6.23 uIU/mL (0.32-4.0); Vitamin D 25-OH Total 19.4 ng/mL (>30)
[2023-12-23 10:18] LABS: Free T4 (Free Thyroxine) 0.84 ng/dL (0.71-1.85)
== END 2023-12-23 07:08 | disposition home or self-care (01) ==
LOC: HO.LAB 07:07
PROVIDERS: PCP Internal Medicine; Visit Provider Internal Medicine
DX: I10 Essential (primary) hypertension (principal); E78.00 Pure hypercholesterolemia, unspecified; E55.9 Vitamin D deficiency, unspecified; E53.8 Deficiency of other specified B group vitamins; M79.7 Fibromyalgia
CPT/HCPCS: 36415; 80053; 80061; 81001; 82306; 82607; 82746; 84439; 84443; 85025; 85652; 87086

== ENCOUNTER 2023-12-27 10:33 | Outpatient (AMB) | payer OTHER, SELFPAY ==
[2023-12-27 10:35] VITALS: BP 126/80; PULSE 78; O2SAT 98; BMI 39.9
--- NOTE | 2023-12-27 10:35 | A.OFFPC_ITS ---
Vital Signs 12/27/23 10:35 Height 5 ft 3 in Weight 225 lb 8 oz BMI 39.9 BP 126/80 Blood Pressure Location Lt brachial Position Sitting Pulse 78 Pulse Source Pulse Oximeter Pulse Oximetry (%) 98 Oxygen Delivery Method Room Air Intake Visit Reasons: hyperlipidemia, phlegmasia cerulea dolens, ROBERTO CARLOS Assistant Center Director Required: No Accompanied by: Self / Same As Patient Allergies No Known Allergies Allergy (Verified 12/27/23 11:13) Medication List - Last Reconciled 12/27/23 by Glynn Greco MD acetaminophen 325 mg PO DAILY PRN albuterol sulfate 2.5 mg inhalation QID PRN albuterol sulfate 90 mcg/actuation (Ventolin HFA) 2 puffs inhalation Q6H PRN 30 days apixaban (Eliquis) 5 mg PO BID atorvastatin 80 mg PO DAILY 90 days [COMPRESSION STOCKINGS (pantyhose) As directed] cyanocobalamin (vitamin B-12) 1,000 mcg PO DAILY 90 days dorzolamide-timolol 22.3-6.8 mg/mL 1 drp ophthalmic (eye) DAILY ergocalciferol (vitamin D2) 1,250 mcg PO TU Flovent HFA 220 mcg/actuation (fluticasone propionate) 2 puffs inhalation BID 30 days NS gabapentin 600 mg PO TID latanoprost 0.005% 1 drp ophthalmic (eye) BEDTIME lithium carbonate ER 450 mg PO BID lorazepam 0.5 mg PO QAM PRN lurasidone (Latuda) 40 mg PO BEDTIME omeprazole 20 mg PO DAILY PRN terconazole 0.8% 1 appful vaginal BEDTIME 3 days tramadol 50 mg PO BID PRN 30 days venlafaxine ER 150 mg PO QPM zolpidem (Ambien) 10 mg PO BEDTIME Tobacco use date assessed: 12/27/23 Fall risk assessment: No Falls in past year Last assessed Fall Risk: 12/27/23 Dental Screening Dental Screen Date: 12/27/23 Did you have a dental visit in the last 12 months?: Yes Did you have a dental problem in the last 6 months where you did not have access to dental care?: No Was dental information given to patient?: Patient has dentist HPI hyperlipidemia, phlegmasia cerulea dolens, ROBERTO CARLOS HPI Details Patient comes in today for her follow up visit States that she has not been feeling well for at least the past couple of weeks now Relates that she feels dizzy often lately; denies any increased headaches Denies any fever or sore throat States that her asthma has been acting up often lately and she sometimes feel like she had a hard time breathing due to her asthma She was following up with Dr. Grey (pulmonary) at [facility] for her asthma but she has not been seen since late 2021 She denies any chest pains Relates (+) on and off nausea but denies any vomiting; states that she has been experiencing recurrent upper abdominal (including the epigastric area) pain for a few weeks now Notes that her symptoms seem to be triggered when she eats Has also noticed some mucus in her stools at times recently and her stool sometime is soft or loose She did have a laparoscopic cholecystectomy done at [facility] last July 2023 and is not sure how much of her symptoms are related to her not having a functioning gall bladder anymore Denies seeing any blood in her stool She also reports experiencing increasing pressure-like sensation and discomfort often over her suprapubic area lately but denies any urinary frequency or pain on urination Would like to know how she did on her labs done a few days ago [facility] Medical History Morbid obesity with BMI of 40.0-44.9, adult Pure hypercholesterolemia Exertional dyspnea Fatigue Cough Lumbar degenerative disc disease Phlegmasia cerulea dolens Obstructive sleep apnea COVID-19 Hyperthyroidism Anxiety Insomnia Obstructive sleep apnea Condyloma acuminata Vitamin B12 deficiency Lung granuloma Phlegmasia cerulea dolens Chronic low back pain Vitamin D deficiency Obesity (BMI 30-39.9) Fibromyalgia Depression Neuropathy DVT (deep venous thrombosis) Asthma DDD (degenerative disc disease) Surgical History S/P laparoscopic appendectomy History of embolectomy Benign neoplasm of neck History of colonoscopy History of bilateral tubal ligation History of carpal tunnel release History of bilateral oophorectomy S/P IVC filter Family History Father Liver cirrhosis Cancer Mother Heart attack Coronary artery disease Asthma Diabetes mellitus Brother No problems noted. Sister No problems noted. Sister No problems noted. Sister No problems noted. Sister No problems noted. Sister No problems noted. Sister No problems noted. Sister No problems noted. Sister No problems noted. Sister No problems noted. Sister No problems noted. Sister No problems noted. Sister No problems noted. Sister No problems noted. Paternal Aunt Colon cancer Son Histiocytosis Son No problems noted. Son No problems noted. Social History Household Members: Children Housing: Apartment Do you presently have visiting nurse or other home services: Yes ([employer]) Alcohol intake: former Patient Tobacco Use Status: Never used Tobacco e-Cigarette/Vaping Use: Never Used Second Hand Smoke Exposure: No service: No Current occupational status: disabled Current occupation: right hand Cognitive needs: Yes (cane) Hearing needs: No Vision needs: Yes Questionnaire PHQ-9 Over the last 2 weeks, how often have you been bothered by any of the following problems? 1. Little interest or pleasure in doing things: nearly every day 2. Feeling down, depressed, or hopeless: nearly every day 3. Trouble falling or staying asleep, or sleeping too much: several days 4. Feeling tired or having little energy: nearly every day 5. Poor appetite or overeating: not at all 6. Feeling bad about yourself - or that you are a failure or have let yourself or your family down: not at all 7. Trouble concentrating on things, such as reading the newspaper or watching television: nearly every day 8. Moving or speaking so slowly that other people could have noticed. Or the opposite - being so fidgety or restless that you have been moving around a lot more than usual: not at all 9. Thoughts that you would be better off or of hurting yourself in some way: not at all Total score: 13 Depression Screening Interpretation: Positive Depression Screening Follow-up: Existing condition and In treatment Depression Screening Done: Yes 24960 - PHQ-9 Billing: Yes Source: Developed by Drs. Jamel Hong, Carmen Villanueva, Gilbert Jara and colleagues, with an educational son from [employer]. Thrive Questionnaire Date Thrive assessed: 12/27/23 I am a: Patient What is your living situation today?: I have a steady place to live Within the past 12 months, did the food you bought not last and you didn't have the money to get more?: Never true Within the past 12 months, did you worry whether your food would run out before you got money to buy more?: Never true Do you have trouble paying for medicines?: No Do you have trouble getting transportation to medical appointments?: No Do you have trouble paying your heating and electricity bill?: No Do you have trouble taking care of your child, family member or friend?: No Do you have trouble with day-to-day activities such as bathing, preparing meals, shopping, managing finances, etc.?: No Are you currently unemployed and looking for a job?: No Are you interested in more education?: No Please select the resources that you would like help with: None Currently or been in a relationship where the following occur: no concerns reported THRIVE Score: 0 AUDIT C Alcohol Use Questionnaire (AUDIT-C) 1. How often do you have a drink containing alcohol?: Never 2. How many drinks containing alcohol do you have on a typical day when you are drinking?: 1 or 2 3. How often do you have six or more drinks on one occasion?: Never Total Score: 0 Score Reviewed/Action Taken: Yes FIDELIA-7 AMB Questionnaire FIDELIA-7 Date FIDELIA - 7 assessed: 12/27/23 Feeling nervous, anxious, or on edge: 0 = Not at all Not being able to stop or control worryin = Not at all Worrying too much about different things: 0 = Not at all Trouble relaxin = Not at all Being so restless that it is hard to sit still: 0 = Not at all Becoming easily annoyed or irritable: 0 = Not at all Feeling afraid as if something awful might happen: 0 = Not at all Total FIDELIA-7 score (0-4 normal; 5-9 mild; 10-14 moderate; 15-21 severe): 0 Source: Developed by Drs. Jamel Hong, Carmen Villanueva, Gilbert Jara and colleagues, with an educational son from [employer]. Review of Systems Const Denies chills, Reports fatigue (chronic), Denies fever(s) and Denies headache(s) ENT Denies dysphagia, Reports dizziness (on and off recently), Denies otalgia, Denies headache(s), Reports neck pain, Denies odynophagia, Denies sinus pain and Denies sore throat Card Denies chest pain, Denies palpitations and Reports dyspnea on exertion (mild; chronic) Resp Denies chest congestion, Reports cough (occasional, non-productive), Reports dyspnea on exertion (mild; chronic) and Reports wheezing (at times, when her asthma flares up) GI Reports abdominal pain (over the upper abdomen, including the epigastric area), Reports bloating, Denies hematochezia, Denies constipation, Denies dysphagia, Denies heartburn, Reports loose stools (lately - s/p cholecytectomy; stool sometimes with mucus), Reports nausea (on and off), Denies odynophagia and Denies vomiting Denies difficulty voiding, Denies nocturia, Denies dysuria (but sometimes c/o bladder pressure ), Reports urinary incontinence and Denies vaginal discharge Musc Reports back pain, Reports arthralgias (involving multiple joints - chronic), Reports neck pain and Reports stiffness Skin/Breast Denies rash Neuro Reports dizziness (on and off recently), Denies headache(s) and Reports paresthesias (over the lateral aspect of the right thigh - on and off) Psych Denies anxiety Endo Reports fatigue (chronic) and Denies palpitations Aller/Immun Reports wheezing (at times, when her asthma flares up) Physical exam (Primary Care) Vital Signs: Last Vital Signs Pulse 78 12/27/23 10:35 BP 126/80 12/27/23 10:35 Pulse Ox 98 12/27/23 10:35 Oxygen Delivery Method Room Air 12/27/23 10:35 BMI result Body Mass Index 39.9 Tobacco/Smoking Status: Tobacco use Status Tobacco use date assessed 12/27/23 12/27/23 10:37 Patient Tobacco Use Status Never used Tobacco 12/27/23 10:37 e-Cigarette/Vaping Use Never Used 12/27/23 10:37 PHQ-9: PHQ-9 Score PHQ-9: Total score 13 12/27/23 10:55 Depression Screening Interpretation: Positive Depression Screening Follow-up: Existing condition and In treatment Thrive Assessment: Date of Thrive Assessment Date Thrive assessed 12/27/23 12/27/23 10:37 Currently or been in a relationship where the following occur: no concerns reported Const General: no acute distress and alert HENMT Ears: TM's normal bilaterally and EAC's normal Throat: Yes posterior oropharynx normal and Yes tonsils normal (no TP congestion ) Neck Neck: Yes no lymphadenopathy Thyroid: Thyroid normal Resp Auscultation: no rales, rhonchi (scattered) throughout, no wheezes and diminished lung sounds (slightly) bilateral Cardio Rate: regular rate Rhythm: regular rhythm Heart sounds: no murmurs GI Palpation (GI): Soft to palpation, Tenderness to palpation present (GI) in the epigastrum, in the LUQ and in the RUQ, no guarding, not rigid and no masses Auscultation: normal bowel sounds General: Yes no CVA tenderness Back/Spine/Pelvis Back: no CVA tenderness Cervical Spine: cervical muscular tenderness (bilateral) Thoracic/Lumbar Spine: paraspinal muscle tenderness bilaterally and lumbar spinal tenderness (mild) Skin Rashes: no rashes Extrem General: No clubbing, No cyanosis and Yes edema (1+ bipedal edema) Right upper extremity: wrist Details: tenderness Location: of the volar wrist; Phalen's positive Results AMB Urinalysis, Automated UA Leukoctes 0 Porfirio/uL Last Edit by Yan Johnson on 12/27/23 10:58 UA Nitrite Negative Last Edit by Yan Johnson on 12/27/23 10:58 UA Urobilinogen 0 mg/dL Last Edit by Yan Johnson on 12/27/23 10:58 UA Protein 1 mg/dL Last Edit by Yan Johnson on 12/27/23 10:58 UA pH 6.0 Last Edit by Yan Johnson on 12/27/23 10:58 UA Blood 1 Hector/uL Last Edit by Yan Johnson on 12/27/23 10:58 UA Specific [place] 1.030 Last Edit by Yan Johnson on 12/27/23 10:58 UA Ketone Negative Last Edit by Yan Johnson on 12/27/23 10:58 UA Bilirubin 0 mg/dL Last Edit by Yan Johnson on 12/27/23 10:58 UA Glucose 0 mg/dL Last Edit by Yan Johnson on 02/06/24 10:58 Results Reviewed Results Reviewed: Laboratory Last Values Urine pH (Auto) 6.0 12/27/23 10:55 Specific [place] (Auto) 1.030 12/27/23 10:55 Urine Protein (Auto) 1 mg/dL 12/27/23 10:55 Glucose (UA)(Auto) 0 mg/dL 12/27/23 10:55 Urine Ketones (Auto) Negative 12/27/23 10:55 Urine Blood (Auto) 1 Hector/uL 12/27/23 10:55 Urine Nitrite (Auto) Negative 12/27/23 10:55 Urine Bilirubin (Auto) 0 mg/dL 12/27/23 10:55 Urine Urobilinogen (Auto) 0 mg/dL 12/27/23 10:55 Leukocyte Esterase (Auto) 0 Porfirio/uL 12/27/23 10:55 Laboratory Tests 12/23/23 12/23/23 12/23/23 07:17 07:25 07:25 WBC 6.1 Hgb 12.4 Hct 37.8 Plt Count 279 ESR 16 Sodium 139 Potassium 3.8 Creatinine 0.92 Estimated GFR > 60 Fasting Glucose 98 Calcium 9.3 AST 20 ALT 12 Triglycerides 144 Cholesterol 183 LDL Cholesterol, Calc 106 H HDL Cholesterol 49 Vitamin B12 238 25-OH Vitamin D Total 19.4 L TSH 6.23 H Free T4 0.84 Ur Specific [place] 1.025 Urine Protein Negative Urine Glucose (UA) Negative Urine Blood Trace Assessment and Plan Assessment & Plan (1) Pure hypercholesterolemia: Code(s): E78.00 - Pure hypercholesterolemia, unspecified Plan: Results of her labs done a few days ago reviewed and discussed with patient Reinforced low cholesterol diet Continue Atorvastatin 80 mg QD Will recheck her labs and fasting lipids in 4 months for follow-up (2) Elevated blood pressure reading: Code(s): R03.0 - Elevated blood-pressure reading, without diagnosis of hypertension Plan: Her BP today remains well-controlled Reinforced low sodium diet Patient is reminded to continue monitoring her BP regularly (3) Asthma: Comment: As per spirometry. There is no significant obstructive disorder, So it seems that she has only mild intermittent bronchial asthma. Explained to her through the disability hearing officer and she understands well. [place] : No need to use Flovent. Use ProAir 2 puffs Q 4-6 hours p.r.n., but avoid to use every day. Code(s): J45.909 - Unspecified asthma, uncomplicated Qualifiers: Asthma severity: moderate Asthma persistence: persistent Asthma complication type: with acute exacerbation Qualified Code(s): J45.41 - Moderate persistent asthma with (acute) exacerbation Plan: Continue Flovent HFA Aerosol 220 MCG/ACT 2 Inhalations BID and Ventolin HFA 108 (90 Base) MCG/ACT, 2 puffs every 6 hrs as needed She has been follow up with pulmonary (Dr. Grey) regularly for her asthma but has not been seen since late 2021 Have advised her that with her recent frequent asthma flare ups, she could try to contact Dr. Grey's office and set up an appointment to see him ALFRED for follow up (4) Abdominal pain: Code(s): R10.9 - Unspecified abdominal pain Qualifiers: Abdominal location: upper abdomen, unspecified Qualified Code(s): R10.10 - Upper abdominal pain, unspecified Plan: Patient is advised that her labs done a few days ago came out with normal WBC count and differential on her CBC so this is at least reassuring that she most likely does not have anything acute of significance going on recently Will send her for abdominal x-rays ALFRED for further evaluation Advised that depending on how her x-rays come out, we will order some additional imaging studies if indicated (5) Obstructive sleep apnea: Code(s): G47.33 - Obstructive sleep apnea (adult) (pediatric) Plan: Has not been able to use her CPAP device for a while now due to poor mask fit Follow up with Sleep Medicine as scheduled (6) 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 - goes to the Coumadin clinic for PT/INR monitoring Code(s): I80.209 - Phlebitis and thrombophlebitis of unspecified deep vessels of unspecified lower extremity Qualifiers: Laterality: unspecified laterality Qualified Code(s): I80.209 - Phlebitis and thrombophlebitis of unspecified deep vessels of unspecified lower extremity Plan: Continue Eliquis 5 mg BID Was on Warfarin Sodium Tablet, 5 MG, 2 tablets QD in the past but was switched over to Eliquis 5 mg BID by hematology last year Follow up with hematology as scheduled (7) Stasis edema of both lower extremities: Code(s): I87.303 - Chronic venous hypertension (idiopathic) without complications of bilateral lower extremity Plan: She is encouraged to continue to keep her legs elevated as often as she can throughout the day to help minimize her edema Was provided with Rx for compression stockings (pantyhose style) previously and is encouraged to continue using these as often as she can to also help control her symptoms of edema (8) Fibromyalgia: Code(s): M79.7 - Fibromyalgia Plan: Continue Tizanidine HCl Tablet, 4 MG, 1 tablet, Orally, Three times a day as needed for muscle pains and Tylenol Tablet, 325 MG, 2 tablets Orally every 12 hrs as needed as well as Gabapentin 600 mg TID for pain control/management - Rx refilled She is again encouraged to try to stay active and exercise regularly to help manage her fibromyalgia symptoms. (9) Neuropathy: Code(s): G62.9 - Polyneuropathy, unspecified Plan: Continue Gabapentin 600 MG 1 tablet 3 times a day Will consider repeating NCV if symptoms persist/worsen (10) Carpal tunnel syndrome of right wrist: Code(s): G56.01 - Carpal tunnel syndrome, right upper limb Plan: (+) Hx of median nerve release a few years ago but symptoms appear to have recurred since and has gotten worse lately Offered to send her for repeat MCV & EMG but patient declined - states that she still remembers how painful the procedure was a few years ago and prefers not to get it done again if she can avoid it She was referred back to Dr. Fregoso for further management and consideration for repeat CTS surgery (11) Vitamin B12 deficiency: Code(s): E53.8 - Deficiency of other specified B group vitamins Plan: Continue Vitamin B12 1000 mcg QD (12) Vitamin D deficiency: Code(s): E55.9 - Vitamin D deficiency, unspecified Plan: She is advised that her Vitamin D level dropped from previous and is still low on her recent labs Continue Vitamin D2 01930 units once a week - Rx refilled (13) Sensation of pressure in bladder area: Code(s): R39.89 - Other symptoms and signs involving the genitourinary system Plan: Patient is reassured that her urinalysis done a few days ago and repeat in-house urinalysis done today both came back okay with no findings to suggest a UTI States that she will try to contact her buyer grain to schedule an appointment for evaluation ALFRED Due to her symptoms, will start her empirically on Macrobid 100 mg BID x 7 days in the meantime (14) Insomnia: Code(s): G47.00 - Insomnia, unspecified Qualifiers: Insomnia type: unspecified Qualified Code(s): G47.00 - Insomnia, unspecified Plan: Sleep hygiene reinforced Continue Zolpidem 10 mg Q HS PRN (15) Anxiety: Code(s): F41.9 - Anxiety disorder, unspecified Plan: Continue Lorazepam 0.5 mg QD PRN (16) Depression: Comment: Recurrent MDD Code(s): F32.9 - Major depressive disorder, single episode, unspecified Qualifiers: Depression Type: major depressive disorder Major depression recurrence: recurrent Active/Remission status: currently active Major depression episode severity: unspecified Qualified Code(s): F33.9 - Major depressive disorder, recurrent, unspecified Plan: Continue Venlafaxine ER 150 mg QD, Latuda 40 mg Q HS and [place] ER 450 mg BID Follow up with psychiatry as scheduled (17) Obesity (BMI 30-39.9): Comment: She is actually morbidly obese with BMI of 41. Again stressed about losing weight, she is not able to do any active exercise. Trying to decrease her calories intake as much as she can, Code(s): E66.9 - Obesity, unspecified Plan: Reinforced diet/exercise as tolerated/lose weight Plan Follow up in 4 months Orders: Orders AMB Urinalysis Automated Today Z13.9 - Encounter for screening, unspecified Complete Blood Count Auto Diff 4 Months D64.9 - Anemia, unspecified Comprehensive [place]. Panel Fast 4 Months E78.00 - Pure hypercholesterolemia, unspecified Lipid Panel 4 Months E78.00 - Pure hypercholesterolemia, unspecified UA CC w/rflx Micro + Cult 4 Months R30.0 - Dysuria XR abdomen w decubitus Today R10.9 - Unspecified abdominal pain Vitamin B12 and Folate 4 Months E53.8 - Deficiency of other specified B group vitamins Vitamin D 25-OH Total 4 Months E55.9 - Vitamin D deficiency, unspecified Medications: New nitrofurantoin monohyd/m-cryst 100 mg (Macrobid) must administer with a meal/food 100 mg PO BID 7 days 14 caps 0RF Changed From ergocalciferol (vitamin D2) 1,250 mcg PO TU 13 caps 3RF To ergocalciferol (vitamin D2) 1,250 mcg PO QWEEK 3 months 13 caps 3RF Coding Level of Care Code Est Pt Level 4 (10101) Diagnoses Pure hypercholesterolemia E78.00 Elevated blood pressure reading R03.0 Moderate persistent asthma with acute exacerbation J45.41 Asthma severity: moderate Asthma persistence: persistent Asthma complication type: with acute exacerbation Pain of upper abdomen R10.10 Abdominal location: upper abdomen, unspecified Obstructive sleep apnea G47.33 Phlegmasia cerulea dolens, unspecified laterality I80.209 Laterality: unspecified laterality Stasis edema of both lower extremities I87.303 Fibromyalgia M79.7 Neuropathy G62.9 Carpal tunnel syndrome of right wrist G56.01 Vitamin B12 deficiency E53.8 Vitamin D deficiency E55.9 Sensation of pressure in bladder area R39.89 Insomnia, unspecified type G47.00 Insomnia type: unspecified Anxiety F41.9 Episode of recurrent major depressive disorder, unspecified depression episode severity F33.9 Depression Type: major depressive disorder Major depression recurrence: recurrent Active/Remission status: currently active Major depression episode severity: unspecified Obesity (BMI 30-39.9) E66.9
== END 2023-12-27 11:36 | disposition home or self-care (01) ==
PROVIDERS: PCP Internal Medicine; Visit Provider Internal Medicine
DX: R30.0 Dysuria (principal)
CPT/HCPCS: 81003; 99214

== ENCOUNTER 2023-12-27 11:43 | Outpatient (REF) | payer OTHER, SELFPAY ==
--- NOTE | ~2023-12-27 | XR_ITS ---
EXAMINATION: XR ABDOMEN WITH DECUBITUS VIEWS CLINICAL INDICATION: Abdominal pain. COMPARISON: Most recent CT abdomen/pelvis dated 08/09/2023. TECHNIQUE: AP upright and supine views of the abdomen. FINDINGS: Nonobstructive bowel gas pattern. Minimal air and stool throughout the bowel. No intra-abdominal free air beneath the hemidiaphragm. Right upper quadrant surgical clips. IVC filter at the level of L2-L3 to the right of midline. Multiple phleboliths within the pelvis. No acute osseous abnormality. XR/XR abdomen w decubitus IMPRESSION: Nonobstructive bowel gas pattern. Minimal air and stool throughout the bowel. No intra-abdominal free air.
== END 2023-12-27 11:44 | disposition home or self-care (01) ==
LOC: HO.XRAY 11:43
PROVIDERS: PCP Internal Medicine; Visit Provider Internal Medicine
DX: R10.9 Unspecified abdominal pain (principal)
CPT/HCPCS: 74021

== ENCOUNTER 2024-03-09 10:12 | Outpatient (REF) | payer OTHER, SELFPAY | END 2024-03-09 10:13 | disposition home or self-care (01) | LOC: HO.MAMMO 10:12 | PROVIDERS: PCP Internal Medicine; Visit Provider Internal Medicine | DX: Z12.31 Encounter for screening mammogram for malignant neoplasm of breast (principal) | CPT/HCPCS: 77063; 77067 ==

== ENCOUNTER → 2024-03-09 10:45 | Outpatient (BNV) | payer OTHER, SELFPAY | PROVIDERS: PCP Internal Medicine; Visit Provider Radiology Diagnostic Radiology | DX: Z12.31 Encounter for screening mammogram for malignant neoplasm of breast (principal) | CPT/HCPCS: 77063; 77067 ==

== ENCOUNTER 2024-04-20 08:43 | Outpatient (REF) | payer OTHER, SELFPAY ==
[2024-04-20 08:53] LABS: MANUAL DIFF FLAG NO
[2024-04-20 09:24] LABS: Basophils Absolute Auto 0.1 X10*3/uL (0.0-0.2); Basophils Percent Auto 0.7 % (0-2); Eosinophils Absolute Auto 0.1 X10*3/uL (0.0-0.4); Eosinophils Percent Auto 0.9 % (0-4); Hematocrit 35.1 % (37.0-47.0); Hemoglobin 11.7 g/dl (12.0-16.0); Imm Gran Abs Auto 0.02 X10*3/uL (0.00-0.03); Imm Gran Pct Auto 0.3 % (0.0-0.4); Lymphocytes Absolute Auto 2.3 X10*3/uL (1.2-4.9); Lymphocytes Percent Auto 33.4 % (20-40); Mean Corpuscular HGB Conc 33.3 g/dl (31.0-35.0); Mean Corpuscular Hemoglobin 27.6 pg (27.0-33.0); Mean Corpuscular Volume 82.8 fL (80.0-98.0); Mean Platelet Volume 10.4 fL (9.4-12.3); Monocytes Absolute Auto 0.6 X10*3/uL (0.1-1.2); Neutrophils Absolute Auto 3.8 x10*3/uL (2.0-8.3); Neutrophils Percent Auto 55.7 % (45-73); Platelet Count 269 X10*3/uL (160-400); Red Blood Count 4.24 X10*6/uL (4.20-5.50); Red Cell Distribution Width 14.3 % (11.0-16.0); White Blood Count 6.8 X10*3/uL (4.8-10.8)
[2024-04-20 09:37] LABS: Appearance Urine Cloudy; Color Urine Yellow; Glucose Urine UA Negative (Negative); Leukocyte Esterase Urine Small (1+) (Negative); Nitrite Urine Negative (Negative); Specific Gravity - Urine 1.025 (1.005-1.025); UMIC TRIGGER UACC YES; Urine Blood Negative (Negative); Urine Ketones Trace mg/dL (Negative); Urine Protein Trace mg/dL (Neg-Trace)
[2024-04-20 09:42] LABS: Bacteria Urine 1+ (None Seen); Hyaline Casts Urine 0-2 /LPF (0-2); RBC Urine 0-2 /HPF (0-2); UACC Culture Trigger YES
[2024-04-20 10:02] LABS: Alanine Aminotransferase 13 U/L (0-31); Albumin Level 3.9 g/dL (3.5-5.0); Alkaline Phosphatase 92 U/L (39-117); Anion Gap 14 (12-20); Aspartate Amino Transferase 17 U/L (5-31); Bilirubin Total 0.4 mg/dL (0.0-1.0); Blood Urea Nitrogen 22 mg/dL (9-16); Calcium 9.2 mg/dL (8.4-10.2); Carbon Dioxide 18 mmol/L (22-29); Chloride 112 mmol/L (96-108); Cholesterol 183 mg/dL (<200); Estimated Glomerular Filt Rate > 60; Glucose Fasting 104 mg/dL (60-99); HDL Cholesterol 50 mg/dL (>40); LDL Cholesterol Calculated 117 mg/dL (<100); Potassium 4.1 mmol/L (3.3-5.1); Sodium 140 mmol/L (135-145); Total Protein 7.2 g/dL (6.5-8.0); Triglycerides 84 mg/dL (<150)
[2024-04-20 10:20] LABS: Vitamin D 25-OH Total 19.8 ng/mL (>30)
[2024-04-20 10:45] LABS: Vitamin B12 213 pg/mL (200-900)
== END 2024-04-20 08:44 | disposition home or self-care (01) ==
LOC: HO.LAB 08:43
PROVIDERS: PCP Internal Medicine; Visit Provider Internal Medicine
DX: R30.0 Dysuria (principal); E53.8 Deficiency of other specified B group vitamins; D64.9 Anemia, unspecified; E78.00 Pure hypercholesterolemia, unspecified
CPT/HCPCS: 36415; 80053; 80061; 81001; 82306; 82607; 82746; 85025; 87086

== ENCOUNTER 2024-04-26 09:38 | Outpatient (AMB) | payer OTHER, SELFPAY ==
[2024-04-26 09:40] VITALS: BP 132/68; PULSE 65; O2SAT 97; BMI 38.8
--- NOTE | 2024-04-26 09:40 | A.OFFPC_ITS ---
Vital Signs 04/26/24 09:40 Height 5 ft 5 in Weight 233 lb 0.4 oz BMI 38.8 BP 132/68 Blood Pressure Location Lt brachial Position Sitting Pulse 65 Pulse Source Pulse Oximeter Pulse Oximetry (%) 97 Oxygen Delivery Method Room Air Intake Visit Reasons: 4mth f/u [employer] Required: No Allergies No Known Allergies Allergy (Verified 04/26/24 10:28) Medication List - Last Reconciled 04/26/24 by Glynn Greco MD acetaminophen 325 mg PO DAILY PRN albuterol sulfate 2.5 mg inhalation QID PRN albuterol sulfate 90 mcg/actuation (Ventolin HFA) 2 puffs inhalation Q6H PRN 30 days apixaban (Eliquis) 5 mg PO BID atorvastatin 80 mg PO DAILY 90 days [COMPRESSION STOCKINGS (pantyhose) As directed] cyanocobalamin (vitamin B-12) 1,000 mcg PO DAILY 90 days dorzolamide-timolol 22.3-6.8 mg/mL 1 drp ophthalmic (eye) DAILY ergocalciferol (vitamin D2) 1,250 mcg PO QWEEK 3 months Flovent HFA 220 mcg/actuation (fluticasone propionate) 2 puffs inhalation BID 30 days NS gabapentin 600 mg PO TID latanoprost 0.005% 1 drp ophthalmic (eye) BEDTIME lithium carbonate ER 450 mg PO BID lorazepam 0.5 mg PO QAM PRN lurasidone (Latuda) 40 mg PO BEDTIME nitrofurantoin monohyd/m-cryst 100 mg (Macrobid) 100 mg PO BID 7 days omeprazole 20 mg PO DAILY PRN terconazole 0.8% 1 appful vaginal BEDTIME 3 days tramadol 50 mg PO BID PRN 30 days venlafaxine ER 150 mg PO QPM zolpidem (Ambien) 10 mg PO BEDTIME Tobacco use date assessed: 04/26/24 Fall risk assessment: No Falls in past year Last assessed Fall Risk: 04/26/24 Dental Screening Dental Screen Date: 12/27/23 [facility] HPI Details Patient comes in today for her follow up visit States that she has been experiencing pain in both of her feet (primarily over the top of her feet) for while now and feels that her pain have gotten worse lately and would like to get a referral to see a specialist for her increasing feet pain She denies any recent injury or trauma to her feet Adds that she cancelled her bilateral upper extremity EMG & NCV recently and has not yet rescheduled them - states that she got scared about going for the test She denies any headaches or dizziness Denies any chest pains, no increased SOB No nausea/vomiting, no abdominal pain No change in bowel habits noted Had her follow up labs done last week - to discuss her results [facility] Medical History Morbid obesity with BMI of 40.0-44.9, adult Pure hypercholesterolemia Exertional dyspnea Fatigue Cough Lumbar degenerative disc disease Phlegmasia cerulea dolens Obstructive sleep apnea COVID-19 Hyperthyroidism Anxiety Insomnia Obstructive sleep apnea Condyloma acuminata Vitamin B12 deficiency Lung granuloma Phlegmasia cerulea dolens Chronic low back pain Vitamin D deficiency Obesity (BMI 30-39.9) Fibromyalgia Depression Neuropathy DVT (deep venous thrombosis) Asthma DDD (degenerative disc disease) Surgical History S/P laparoscopic appendectomy History of embolectomy Benign neoplasm of neck History of colonoscopy History of bilateral tubal ligation History of carpal tunnel release History of bilateral oophorectomy S/P IVC filter Family History Father Liver cirrhosis Cancer Mother Heart attack Coronary artery disease Asthma Diabetes mellitus Brother No problems noted. Sister No problems noted. Sister No problems noted. Sister No problems noted. Sister No problems noted. Sister No problems noted. Sister No problems noted. Sister No problems noted. Sister No problems noted. Sister No problems noted. Sister No problems noted. Sister No problems noted. Sister No problems noted. Sister No problems noted. Paternal Aunt Colon cancer Son Histiocytosis Son No problems noted. Son No problems noted. Social History Household Members: Children Housing: Apartment Do you presently have visiting nurse or other home services: Yes ([employer]) Alcohol intake: former Patient Tobacco Use Status: Never used Tobacco e-Cigarette/Vaping Use: Never Used Second Hand Smoke Exposure: No service: No Current occupational status: disabled Current occupation: right hand Cognitive needs: Yes (cane) Hearing needs: No Vision needs: Yes Questionnaire Thrive Questionnaire Date Thrive assessed: 12/27/23 I am a: Patient What is your living situation today?: I have a steady place to live Within the past 12 months, did the food you bought not last and you didn't have the money to get more?: Never true Within the past 12 months, did you worry whether your food would run out before you got money to buy more?: Never true Do you have trouble paying for medicines?: No Do you have trouble getting transportation to medical appointments?: No Do you have trouble paying your heating and electricity bill?: No Do you have trouble taking care of your child, family member or friend?: No Do you have trouble with day-to-day activities such as bathing, preparing meals, shopping, managing finances, etc.?: No Are you currently unemployed and looking for a job?: No Are you interested in more education?: No Please select the resources that you would like help with: None Currently or been in a relationship where the following occur: no concerns r eported THRIVE Score: 0 AUDIT C Alcohol Use Questionnaire (AUDIT-C) 1. How often do you have a drink containing alcohol?: Never 2. How many drinks containing alcohol do you have on a typical day when you are drinking?: 1 or 2 3. How often do you have six or more drinks on one occasion?: Never Total Score: 0 Score Reviewed/Action Taken: Yes FIDELIA-7 AMB Questionnaire FIDELIA-7 Date FIDELIA - 7 assessed: 12/27/23 Source: Developed by Drs. Jamel Hong, Carmen Villanueva, Gilbert Jara and colleagues, with an educational son from [employer]. Review of Systems Const Denies chills, Reports fatigue (chronic), Denies fever(s) and Denies headache(s) ENT Denies dysphagia, Denies dizziness, Denies otalgia, Denies headache(s), Reports neck pain, Denies odynophagia, Denies sinus pain and Denies sore throat Card Denies chest pain, Denies palpitations and Reports dyspnea on exertion (mild; chronic) Resp Denies chest congestion, Reports cough (occasional, non-productive), Reports dy spnea on exertion (mild; chronic) and Denies wheezing GI Denies abdominal pain, Denies constipation, Denies dysphagia, Denies heartburn, Reports loose stools (lately - s/p cholecytectomy; stool sometimes (+)mucus), Denies nausea, Denies odynophagia and Denies vomiting Denies difficulty voiding, Denies nocturia, Denies dysuria (but sometimes c/o bladder pressure ), Reports urinary incontinence, Denies urinary urgency and Denies vaginal discharge Musc Details: increasing pain over the top of both feet lately Reports back pain, Reports arthralgias (involving multiple joints - chronic), Reports neck pain and Reports stiffness Skin/Breast Denies rash Neuro Denies dizziness, Denies headache(s) and Reports paresthesias (over the lateral aspect of the right thigh - on and off) Psych Denies anxiety Endo Reports fatigue (chronic) and Denies palpitations Aller/Immun Denies wheezing Physical exam (Primary Care) Vital Signs: Last Vital Signs Pulse 65 04/26/24 09:40 BP 132/68 04/26/24 09:40 Pulse Ox 97 04/26/24 09:40 Oxygen Delivery Method Room Air 04/26/24 09:40 BMI result Body Mass Index 38.8 Tobacco/Smoking Status: Tobacco use Status Tobacco use date assessed 04/26/24 04/26/24 09:46 Patient Tobacco Use Status Never used Tobacco 04/26/24 09:46 e-Cigarette/Vaping Use Never Used 04/26/24 09:46 Thrive Assessment: Date of Thrive Assessment Date Thrive assessed 12/27/23 04/26/24 09:46 Currently or been in a relationship where the following occur: no concerns reported Const General: no acute distress and alert HENMT Ears: TM's normal bilaterally and EAC's normal Throat: Yes posterior oropharynx normal and Yes tonsils normal (no TP congestion) Neck Neck: Yes no lymphadenopathy Thyroid: Thyroid normal Resp Auscultation: no rales, rhonchi (occasional) throughout, no wheezes and diminis hed lung sounds (slightly) bilateral Cardio Rate: regular rate Rhythm: regular rhythm Heart sounds: no murmurs GI Palpation (GI): Soft to palpation and nontender Auscultation: normal bowel sounds General: Yes no CVA tenderness Back/Spine/Pelvis Back: no CVA tenderness Cervical Spine: cervical muscular tenderness (bilateral) Thoracic/Lumbar Spine: paraspinal muscle tenderness bilaterally and lumbar spinal tenderness (mild) Skin Rashes: no rashes Extrem General: No clubbing, No cyanosis and Yes edema (1+ bipedal edema) Right upper extremity: wrist Details: tenderness Location: of the volar wrist; Phalen's positive Right lower extremity: foot Details: tenderness Location: of the dorsal foot Left lower extremity: foot Details: tenderness Location: of the dorsal foot Results Reviewed Results Reviewed: Laboratory Tests 04/20/24 04/20/24 08:45 08:51 WBC 6.8 Hgb 11.7 L Hct 35.1 L Plt Count 269 Sodium 140 Potassium 4.1 Creatinine 0.86 Estimated GFR > 60 Fasting Glucose 104 H Calcium 9.2 AST 17 ALT 13 Triglycerides 84 Cholesterol 183 LDL Cholesterol, Calc 117 H HDL Cholesterol 50 Vitamin B12 213 25-OH Vitamin D Total 19.8 L Ur Specific Blair 1.025 Urine Protein Trace Urine Glucose (UA) Negative Urine Blood Negative Urine Nitrite Negative Ur Leukocyte Esterase Small (1+) H Assessment and Plan Assessment & Plan (1) Pain in both feet: Code(s): M79.671 - Pain in right foot; M79.672 - Pain in left foot Plan: Will send her for x-rays of both feet for further evaluation Will consider referring her to podiatry for further evaluation and management but will wait and see how her x-rays come out first (2) Pure hypercholesterolemia: Code(s): E78.00 - Pure hypercholesterolemia, unspecified Plan: Results of her labs done last week reviewed and discussed with patient Reinforced low cholesterol diet Continue Atorvastatin 80 mg QD Will recheck her labs and fasting lipids in 4 months for follow-up (3) Elevated blood pressure reading: Code(s): R03.0 - Elevated blood-pressure reading, without diagnosis of hypertension Plan: Her BP today remains well-controlled Reinforced low sodium diet Patient is reminded to continue monitoring her BP regularly (4) Asthma: Comment: As per spirometry. There is no significant obstructive disorder, So it seems that she has only mild intermittent bronchial asthma. Explained to her through the detective captain and she understands well. TX : No need to use Flovent. Use ProAir 2 puffs Q 4-6 hours p.r.n., but avoid to use every day. Code(s): J45.909 - Unspecified asthma, uncomplicated Qualifiers: Asthma severity: moderate Asthma persistence: persistent Asthma complication type: with acute exacerbation Qualified Code(s): J45.41 - Moderate persistent asthma with (acute) exacerbation Plan: Continue Flovent HFA Aerosol 220 MCG/ACT 2 Inhalations BID and Ventolin HFA 108 (90 Base) MCG/ACT, 2 puffs every 6 hrs as needed She has been follow up with pulmonary (Dr. Grey) regularly for her asthma but has not been seen since late 2021 She is again advised to try contacting Dr. Grey's office to schedule a follow up appt with him ALFRED (5) Obstructive sleep apnea: Code(s): G47.33 - Obstructive sleep apnea (adult) (pediatric) Plan: Has not been able to use her CPAP device for a while now due to poor mask fit Follow up with Sleep Medicine as scheduled (6) 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 - goes to the Coumadin clinic for PT/I NR monitoring Code(s): I80.209 - Phlebitis and thrombophlebitis of unspecified deep vessels of unspecified lower extremity Qualifiers: Laterality: unspecified laterality Qualified Code(s): I80.209 - Phlebitis and thrombophlebitis of unspecified deep vessels of unspecified lower extremity Plan: Continue Eliquis 5 mg BID Was on Warfarin Sodium Tablet, 5 MG, 2 tablets QD in the past but was switched over to Eliquis 5 mg BID by hematology last year Follow up with hematology as scheduled (7) Stasis edema of both lower extremities: Code(s): I87.303 - Chronic venous hypertension (idiopathic) without complications of bilateral lower extremity Plan: She is encouraged to continue to keep her legs elevated as often as she can throughout the day to help minimize her edema She was provided with Rx for compression stockings (pantyhose style) previously and has been encouraged to continue using these as often as she can to also help control her symptoms of edema (8) Fibromyalgia: Code(s): M79.7 - Fibromyalgia Plan: Continue Tizanidine HCl Tablet, 4 MG, 1 tablet, Orally, Three times a day as needed for muscle pains and Tylenol Tablet, 325 MG, 2 tablets Orally every 12 hrs as needed as well as Gabapentin 600 mg TID for pain control/management - Rx refilled She is again encouraged to try to stay active and exercise regularly to help manage her fibromyalgia symptoms. (9) Neuropathy: Code(s): G62.9 - Polyneuropathy, unspecified Plan: Continue Gabapentin 600 MG 1 tablet 3 times a day Will consider repeating NCV if symptoms persist/worsen (10) Carpal tunnel syndrome of right wrist: Code(s): G56.01 - Carpal tunnel syndrome, right upper limb Plan: (+) Hx of median nerve release a few years ago but symptoms appear to have recurred since and has gotten worse lately Offered to send her for repeat MCV & EMG but patient declined - states that she still remembers how painful the procedure was a few years ago and prefers not to get it done again if she can avoid it She was referred back to Dr. Fregoso for further management and consideration for repeat CTS surgery (11) Vitamin B12 deficiency: Code(s): E53.8 - Deficiency of other specified B group vitamins Plan: She is advised that her Vitamin B12 level is still low on her recent labs and it appears to be slowly declining further Patient admits that she often forgets to take her Vitamin supplements Continue Vitamin B12 1000 mcg QD Will recheck her Vitamin B12 level in 4 months for follow up (12) Vitamin D deficiency: Code(s): E55.9 - Vitamin D deficiency, unspecified Plan: She is advised that her Vitamin D level is still low on her recent labs Continue Vitamin D2 19699 units once a week (13) Insomnia: Code(s): G47.00 - Insomnia, unspecified Qualifiers: Insomnia type: unspecified Qualified Code(s): G47.00 - Insomnia, unspecified Plan: Sleep hygiene reinforced Continue Zolpidem 10 mg Q HS PRN (14) Anxiety: Code(s): F41.9 - Anxiety disorder, unspecified Plan: Continue Lorazepam 0.5 mg QD PRN (15) Depression: Comment: Recurrent MDD Code(s): F32.9 - Major depressive disorder, single episode, unspecified Qualifiers: Depression Type: major depressive disorder Major depression recurrence: recurrent Active/Remission status: currently active Major depression episode severity: unspecified Qualified Code(s): F33.9 - Major depressive disorder, recurrent, unspecified Plan: Continue Venlafaxine ER 150 mg QD, Latuda 40 mg Q HS and [place] ER 450 mg BID Follow up with psychiatry as scheduled (16) Obesity (BMI 30-39.9): Comment: She is actually morbidly obese with BMI of 41. Again stressed about losing weight, she is not able to do any active exercise. Trying to decrease her calories intake as much as she can, Code(s): E66.9 - Obesity, unspecified Plan: Reinforced diet/exercise as tolerated/lose weight Plan Follow up in 4 months Orders: Orders Vitamin D 25-OH Total 4 Months E55.9 - Vitamin D deficiency, unspecified Vitamin B12 and Folate 4 Months E53.8 - Deficiency of other specified B group vitamins Comprehensive Spring. Panel Fast 4 Months E78.00 - Pure hypercholesterolemia, unspecified Complete Blood Count Auto Diff 4 Months D64.9 - Anemia, unspecified [place] 4 Months Z51.81 - Encounter for therapeutic drug level monitoring XR foot RT min 3V Today M79.671 - Pain in right foot, M79.672 - Pain in left foot XR foot LT min 3V Today M79.671 - Pain in right foot, M79.672 - Pain in left foot Lipid Panel 4 Months E78.00 - Pure hypercholesterolemia, unspecified UA CC w/rflx Micro + Cult 4 Months R30.0 - Dysuria TSH reflex Free T4 4 Months E78.00 - Pure hypercholesterolemia, unspecified Coding Level of Care Code Est Pt Level 4 (58571) Complex EM visit Add On G2211 Diagnoses Pain in both feet M79.671; M79.672 Pure hypercholesterolemia E78.00 Elevated blood pressure reading R03.0 Moderate persistent asthma with acute exacerbation J45.41 Asthma severity: moderate Asthma persistence: persistent Asthma complication type: with acute exacerbation Obstructive sleep apnea G47.33 Phlegmasia cerulea dolens, unspecified laterality I80.209 Laterality: unspecified laterality Stasis edema of both lower extremities I87.303 Fibromyalgia M79.7 Neuropathy G62.9 Carpal tunnel syndrome of right wrist G56.01 Vitamin B12 deficiency E53.8 Vitamin D deficiency E55.9 Insomnia, unspecified type G47.00 Insomnia type: unspecified Anxiety F41.9 Episode of recurrent major depressive disorder, unspecified depression episode severity F33.9 Depression Type: major depressive disorder Major depression recurrence: recurrent Active/Remission status: currently active Major depression episode severity: unspecified Obesity (BMI 30-39.9) E66.9
== END 2024-04-26 10:31 | disposition home or self-care (01) ==
PROVIDERS: PCP Internal Medicine; Visit Provider Internal Medicine
DX: M79.671 Pain in right foot (principal); M79.672 Pain in left foot; I80.209 Phlebitis and thrombophlebitis of unspecified deep vessels of unspecified lower extremity; F33.9 Major depressive disorder, recurrent, unspecified; E78.00 Pure hypercholesterolemia, unspecified; R03.0 Elevated blood-pressure reading, without diagnosis of hypertension; J45.41 Moderate persistent asthma with (acute) exacerbation; G47.33 Obstructive sleep apnea (adult) (pediatric); I87.303 Chronic venous hypertension (idiopathic) without complications of bilateral lower extremity; M79.7 Fibromyalgia; G62.9 Polyneuropathy, unspecified; E53.8 Deficiency of other specified B group vitamins
CPT/HCPCS: 99214; G2211

== ENCOUNTER 2024-04-26 10:41 | Outpatient (REF) | payer OTHER, SELFPAY ==
--- NOTE | ~2024-04-26 | XR_ITS ---
EXAMINATION: XR FOOT, LEFT CLINICAL INFORMATION: Pain in right foot No trauma Bunion COMPARISON: None available. TECHNIQUE: AP, lateral, and oblique views of the left foot. FINDINGS: The bones are intact. There is soft tissue swelling of the forefoot. No fracture. There is mild varus angulation of the third through fifth toes. There is mild degenerative change of the PIP and DIP joints of the second through fifth toes. The DIP joint of the little toe is fused. There is mild narrowing of the first metatarsophalangeal joint consistent with mild degenerative change. Moderate sized posterior plantar calcaneal spur is seen. Tiny Achilles enthesophyte is noted Arterial vascular calcifications are seen in the ankle and foot. XR/XR foot LT min 3V IMPRESSION: 1. No acute bony abnormality. 2. Mild degenerative changes. 3. Moderate sized posterior plantar calcaneal spur.
--- NOTE | ~2024-04-26 | XR_ITS ---
EXAMINATION: XR FOOT, RIGHT CLINICAL INFORMATION: Pain in right foot No trauma Bunion COMPARISON: None available. TECHNIQUE: AP, lateral, and oblique views of the right foot. FINDINGS: The bones are intact. There is soft tissue fullness medial to the first metatarsophalangeal joint. No fracture. There is mild varus angulation of the second through fifth toes. There is mild degenerative change of the PIP and DIP joints of the second through fifth toes. There is mild narrowing of the first metatarsophalangeal joint consistent with mild degenerative change Moderate sized posterior plantar calcaneal spur is seen. Arterial vascular calcification is also noted in the region of the ankle and foot. Tiny Achilles enthesophyte. XR/XR foot RT min 3V IMPRESSION: 1. No acute bony abnormality. 2. Mild degenerative changes. 3. Moderate sized posterior plantar calcaneal spur. 4. Soft tissue fullness medial to the first metatarsophalangeal joint.
== END 2024-04-26 10:42 | disposition home or self-care (01) ==
LOC: HO.XRAY 10:41
PROVIDERS: PCP Internal Medicine; Visit Provider Internal Medicine
DX: M79.671 Pain in right foot (principal); M79.672 Pain in left foot
CPT/HCPCS: 73630

== ENCOUNTER 2024-05-13 12:49 | Emergency (ER) | payer OTHER, SELFPAY ==
--- NOTE | ~2024-05-13 | XR_ITS ---
EXAMINATION: XR CHEST CLINICAL INFORMATION: Cough COMPARISON: Previous chest x-ray June 2023 TECHNIQUE: Frontal view of the chest was obtained. FINDINGS: No significant abnormality is noted involving the heart, lungs, mediastinum, bony thorax or soft tissues. XR/XR chest 1V IMPRESSION: Unremarkable examination.
--- NOTE | 2024-05-13 12:54 | ECG_ITS ---
Test Reason : CHEST PAIN Blood Pressure : / mmHG Vent. Rate : 065 BPM Atrial Rate : 065 BPM P-R Int : 148 ms QRS Dur : 080 ms QT Int : 414 ms P-R-T Axes : 060 001 009 degrees QTc Int : 430 ms Normal sinus rhythm Normal ECG When compared with ECG of 09-AUG-2023 10:15, No significant change was found Referred By: Cesar José Electronically Signed By:BESS JOHNSON MD
[2024-05-13 13:15] VITALS: BP 139/80; PULSE 71; RESP 16; TEMP 37.1; O2SAT 98; BMI 42.5
--- NOTE | 2024-05-13 13:29 | ED.GENADULT ---
HPI - General Adult General Chief complaint: Upper Respiratory Symptoms Stated complaint: chest pain, cough Time Seen by Provider: 05/13/24 13:29 Source: patient and top stitcher Mode of arrival: ambulatory Limitations: language barrier History of Present Illness ED Provider: Brooke BERTRAND HPI narrative: 63-year-old female with a history of DVT on Eliquis, asthma, glaucoma presents the ER with complaints of 1 week of cough, congestion, sore throat, chest wall pain with coughing. No shortness of breath, leg swelling, leg pain, abdominal pain, diarrhea, vomiting, skin rash, neck pain, neck stiffness, fevers, chills. No recent travel or sick contacts Related Data Home Medications ?Medication ?Instructions ?Recorded ?Confirmed zolpidem 10 mg tablet (Ambien) 10 mg PO BEDTIME Sleep 09/09/20 04/26/24 acetaminophen 325 mg tablet 325 mg PO DAILY PRN Pain (Scale 01/21/22 04/26/24 Score 4-6) lithium carbonate 450 mg 450 mg PO BID 01/21/22 04/26/24 tablet,extended release omeprazole 20 mg capsule,delayed 20 mg PO DAILY PRN Acid Reflux 09/14/22 04/26/24 release lurasidone 40 mg tablet (Latuda) 40 mg PO BEDTIME 10/11/22 04/26/24 venlafaxine 150 mg 150 mg PO QPM 10/11/22 04/26/24 capsule,extended release 24 hr dorzolamide 22.3 mg-timolol 6.8 1 drp ophthalmic (eye) DAILY 01/20/23 04/26/24 mg/mL eye drops albuterol sulfate 2.5 mg/3 mL 2.5 mg inhalation QID PRN 08/09/23 04/26/24 (0.083 %) solution for nebulization shortness of breath or wheezing latanoprost 0.005 % eye drops 1 drp ophthalmic (eye) BEDTIME 08/09/23 04/26/24 lorazepam 0.5 mg tablet 0.5 mg PO QAM PRN Anxiety 08/09/23 04/26/24 Previous Rx's ?Medication ?Instructions ?Recorded albuterol sulfate 90 mcg/actuation 2 puff inhalation Q6H PRN 09/06/22 aerosol inhaler (Ventolin HFA) shortness of breath or wheezing 30 days #8.5 grams COMPRESSION STOCKINGS (pantyhose) #2 ea 09/21/22 Flovent HFA 220 mcg/actuation 2 puff inhalation BID 30 days #12 09/25/22 aerosol inhaler (fluticasone grams propionate) terconazole 0.8 % vaginal cream 1 appful vaginal BEDTIME 3 days 09/05/23 #20 grams gabapentin 600 mg tablet 600 mg PO TID #90 tabs 09/28/23 cyanocobalamin (vitamin B-12) 1,000 mcg PO DAILY 90 days #90 tabs 10/20/23 1,000 mcg tablet ergocalciferol (vitamin D2) 1,250 1,250 mcg PO QWEEK 3 months #13 12/27/23 mcg (50,000 unit) capsule caps nitrofurantoin 100 mg PO BID 7 days #14 caps 12/27/23 monohydrate/macrocrystals 100 mg capsule (Macrobid) atorvastatin 80 mg tablet 80 mg PO DAILY 90 days #90 tabs 01/24/24 apixaban 5 mg tablet (Eliquis) 5 mg PO BID #60 tabs 03/25/24 tramadol 50 mg tablet 50 mg PO BID PRN pain 30 days #60 04/25/24 tabs rollator walker with seat #1 ea 05/07/24 benzonatate 200 mg capsule 200 mg PO TID PRN cough #20 caps 05/13/24 prednisone 20 mg tablet 40 mg (2 x 20 mg) PO DAILY #10 tabs 05/13/24 Allergies Allergy/AdvReac Type Severity Reaction Status Date / Time No Known Allergies Allergy Verified 05/13/24 13:22 Review of Systems Review of Systems: Yes all other systems are reviewed and are negative Constitutional: Constitutional: Reports no additional constitutional complaints, Denies body ache(s), Denies chills, Denies fever(s), Denies headache(s) and Denies weakness Eyes: Eyes: Reports no additional eye complaints and Denies change in vision ENT: Reports system reviewed and no additional complaints, except as documented, Denies dizziness, Denies headache(s), Reports nasal congestion, Denies nasal discharge, Denies neck pain and Reports sore throat Cardiovascular: Cardiovascular: Reports no additional cardiovascular complaints, Reports chest pain, Denies leg edema and Denies dyspnea Respiratory: Respiratory: Reports no additional respiratory complaints, Reports cough and Denies dyspnea Gastrointestinal: Gastrointestinal: Reports no additional gastrointestinal complaints, Denies abdominal pain, Denies diarrhea, Denies nausea and Denies vomiting Genitourinary: Genitourinary: Reports no additional female genitourinary complaints and Denies urinary incontinence Musculoskeletal: Musculoskeletal: Reports no additional musculoskeletal complaints, Denies back pain, Denies arthralgias, Denies joint swelling, Denies neck pain, Denies numbness and Denies tingling Integumentary/Breasts: Skin/Breast: Reports system reviewed and no additional complaints, except as docu and Denies rash Neurologic: Reports system reviewed and no additional complaints, except as documented, Denies Abnormal speech present, Denies dizziness, Denies headache(s), Denies numbness, Denies tingling and Denies weakness PMFSH Past Medical History Attestation statement: The following information was validated with the patient. Source: old records reviewed and nursing notes reviewed Medical History Morbid obesity with BMI of 40.0-44.9, adult Pure hypercholesterolemia Exertional dyspnea Fatigue Cough Lumbar degenerative disc disease Phlegmasia cerulea dolens Obstructive sleep apnea COVID-19 Hyperthyroidism Anxiety Insomnia Obstructive sleep apnea Condyloma acuminata Vitamin B12 deficiency Lung granuloma Phlegmasia cerulea dolens Chronic low back pain Vitamin D deficiency Obesity (BMI 30-39.9) Fibromyalgia Depression Neuropathy DVT (deep venous thrombosis) Asthma DDD (degenerative disc disease) Surgical History S/P laparoscopic appendectomy History of embolectomy Benign neoplasm of neck History of colonoscopy History of bilateral tubal ligation History of carpal tunnel release History of bilateral oophorectomy S/P IVC filter Family History Family History Father Liver cirrhosis Cancer Mother Heart attack Coronary artery disease Asthma Diabetes mellitus Brother No problems noted. Sister No problems noted. Sister No problems noted. Sister No problems noted. Sister No problems noted. Sister No problems noted. Sister No problems noted. Sister No problems noted. Sister No problems noted. Sister No problems noted. Sister No problems noted. Sister No problems noted. Sister No problems noted. Sister No problems noted. Paternal Aunt Colon cancer Son Histiocytosis Son No problems noted. Son No problems noted. Social History Social History Household Members: Children Housing: Apartment Do you presently have visiting nurse or other home services: Yes ([employer]) Alcohol intake: former Patient Tobacco Use Status: Never used Tobacco e-Cigarette/Vaping Use: Never Used Second Hand Smoke Exposure: No Advance Directives: Yes Advance Directives on File: Yes Advance Directives Date on File: 08/15/23 Do you have a plan to hurt others: No Plan service: No Current occupational status: disabled Current occupation: right hand Cognitive needs: Yes (cane) Hearing needs: No Vision needs: Yes Physical Exam ED Vital Signs: Vital Signs - 24 hr 05/13/24 13:15 05/13/24 15:45 Temperature 98.7 F 98.7 F Pulse Rate 71 78 Respiratory Rate 16 18 Blood Pressure 139/80 180/80 H Pulse Oximetry 98 98 Oxygen Delivery Method Room Air Room Air BMI result Body Mass Index 42.5 Const General: cooperative, healthy appearing, comfortable and no acute distress Orientation/consciousness: patient oriented x3 Limitations: no limitations HENMT Head: Yes normal to inspection Ears: hearing grossly normal bilaterally, TM normal on the right, mastoids normal, no periauricular adenopathy and TM abnormal erythematous on the left General nose exam: Normal external nose present Face and sinus: Yes normal facial exam Mouth: Normal oral and palatal mucosa present Throat: Yes posterior oropharynx normal, Yes tonsils normal and Yes uvula midline Eyes General: appearance normal, both eyes and all related structures Pupils: Equal, round and reactive pupils present Neck Neck: Yes normal visual inspection, Yes full ROM, Yes no lymphadenopathy and Yes no meningeal signs Chest Chest palpation & inspection: normal inspection of the chest Resp Effort & Inspection: normal respiratory effort Auscultation: clear to auscultation bilaterally Cardio Rate: regular rate Rhythm: regular rhythm Peripheral pulses: Peripheral pulses 2+ throughout GI Inspection: Yes normal to inspection Palpation (GI): Soft to palpation and nontender Auscultation: normal bowel sounds Back/Spine/Pelvis Thoracic/Lumbar Spine: thoracic and lumbar spine normal to inspection Skin General skin exam: no rashes or lesions noted Neuro General: patient oriented x3, no meningeal signs, no focal motor deficits and normal sensation to monofilament Cranial nerves: Yes Equal, round and reactive pupils present Cognition (Neuro): normal cognition Speech: No Abnormal speech present Gait exam (Neuro): Normal gait present Motor exam (neuro): 5/5 motor strength present throughout Extrem General: Yes normal to inspection, Yes no pedal edema and Yes no calf tenderness Course Course Course Narrative: RME: Done by KAVYA Tavares. 63-year-old female presents to ED for 1 week of coughing, sore throat, nasal congestion, body aches, chills, chest pain only when she coughs. Patient denies any lower extremity swelling, recent long travel, pleurisy, or shortness of breath. X-ray swabs EKG ordered Reevaluation(s) Reevaluation #1: EKG is nonischemic. Chest x-ray shows no acute finding. Viral testing is negative. Patient has left otitis media on exam. She does have some URI symptoms with a frequent dry cough with a slight wheeze. I will also prescribe prednisone and Tessalon. Amoxicillin for her otitis media. Reviewed worrisome signs and symptoms of when to return to the emergency room. Comfortable plan for discharge home. Reevaluation #2: on discharge patient reports she has been on amoxicillin for an infected tooth since 05/07. She has a 10 day course which I recommended she continue. Medical Decision Making Medical Decision Making [facility] Narrative: 63-year-old female with a history of DVT on Eliquis, asthma, glaucoma presents the ER with complaints of 1 week of cough, congestion, sore throat, chest wall pain with coughing. No shortness of breath, leg swelling, leg pain, abdominal pain, diarrhea, vomiting, skin rash, neck pain, neck stiffness, fevers, chills. No recent travel or sick contacts left AOM, exam otherwise benign. Vitals stable. Will send viral testing, obtain chest x-ray and EKG Differential Diagnosis Differential Diagnoses: The differential diagnosis associated with the presentation includes viral syndrome, influenza, otitis media, strep pharyngitis, pneumonia Low suspicion for PE at patient is med compliant with anticoagulation Admission/Observation Consideration of admission/observation: Escalation of care including admission/observation considered Lab Data [facility] Lab Attestation statement: I reviewed the patient's lab results. Labs: Lab Results 05/13/24 Range/Units 13:36 Influenza Type A (PCR) NEGATIVE (Negative) Influenza Type B (PCR) NEGATIVE (Negative) RSV RNA Qual (PCR) NEGATIVE (Negative) SARS-CoV-2 RNA (RT-PCR) NEGATIVE (Negative) S. pyogenes GrpA LAILA Negative (Negative) Independent Interpretation I performed an independent interpretation of an: EKG and Plain X-Ray Interpretation: I independently reviewed the chest x-ray and agree with the radiology report I independently reviewed the EKG which shows normal sinus rhythm with a rate of 65, normal AK, normal QRS, normal QT Radiology Impression Discussion of test interpretation with radiology: I have reviewed the radiologist's reading. Radiologist Impression: [address] [address] XRay Report Signed Patient: Nato Goodman MR#: [id number] : 1960 Acct:[id number] Age/Sex: 63 / F ADM Date: 05/13/24 Loc: .ED Attending Dr: Ordering Physician: Cesar José Date of Service: 05/13/24 Procedure(s): XR chest 1V Accession Number(s): [id number] cc: Glynn Greco MD; Cesar Joés~ EXAMINATION: XR CHEST CLINICAL INFORMATION: Cough COMPARISON: Previous chest x-ray June 2023 TECHNIQUE: Frontal view of the chest was obtained. FINDINGS: No significant abnormality is noted involving the heart, lungs, mediastinum, bony thorax or soft tissues. XR/XR chest 1V IMPRESSION: Unremarkable examination. Discharge Plan Discharge Clinical Impression: Otitis media, Upper respiratory infection Patient Disposition: Home, Self-Care Instructions: Ear Infection (ED), Upper Respiratory Infection (ED) Additional Instructions: Testing for flu, covid are negative EKG is normal Chest x-ray shows no signs of infection Prescriptions: New prednisone 20 mg tablet 40 mg PO DAILY Qty: 10 0RF benzonatate 200 mg capsule 200 mg PO TID PRN (Reason: cough) Qty: 20 0RF No Action (DME) COMPRESSION STOCKINGS (pantyhose) MID-compression See Rx Instructions .Route .MEDSUPPLY Qty: 2 1RF Rx Instructions: As directed Flovent HFA 220 mcg/actuation HFA aerosol inhaler 2 puff inhalation BID 30 Days Qty: 12 5RF gabapentin 600 mg tablet 600 mg PO TID Qty: 90 5RF cyanocobalamin (vitamin B-12) 1,000 mcg tablet 1,000 mcg PO DAILY 90 Days Qty: 90 1RF atorvastatin 80 mg tablet 80 mg PO DAILY 90 Days Qty: 90 1RF tramadol 50 mg tablet 50 mg PO BID PRN (Reason: pain) 30 Days Qty: 60 0RF Rx Instructions: Take 1 tablet orally 2 times a day ONLY as needed (DME) rollator walker with seat See Rx Instructions .Route .MEDSUPPLY Qty: 1 0RF Rx Instructions: As directed Eliquis 5 mg Tablet 5 mg PO BID Qty: 60 3RF latanoprost 0.005 % drops 1 drp ophthalmic (eye) BEDTIME lorazepam 0.5 mg tablet 0.5 mg PO QAM PRN (Reason: Anxiety) albuterol sulfate 2.5 mg /3 mL (0.083 %) solution for nebulization 2.5 mg inhalation QID PRN (Reason: shortness of breath or wheezing) albuterol sulfate [Ventolin HFA] 90 mcg/actuation HFA aerosol inhaler 2 puff inhalation Q6H PRN (Reason: shortness of breath or wheezing) 30 Days Qty: 8.5 12RF Rx Instructions: 2 puffs Inhalation every 6 hrs as needed nitrofurantoin monohyd/m-cryst [Macrobid] 100 mg capsule 100 mg PO BID 7 Days Qty: 14 0RF Rx Instructions: must administer with a meal/food ergocalciferol (vitamin D2) 1,250 mcg (50,000 unit) capsule 1,250 mcg PO QWEEK 90 Days Qty: 13 3RF zolpidem [Ambien] 10 mg tablet 10 mg PO BEDTIME venlafaxine 150 mg capsule,extended release 24hr 150 mg PO QPM Latuda 40 mg tablet 40 mg PO BEDTIME acetaminophen 325 mg tablet 325 mg PO DAILY PRN (Reason: Pain (Scale Score 4-6)) lithium carbonate 450 mg tablet extended release 450 mg PO BID omeprazole 20 mg capsule,delayed release(DR/EC) 20 mg PO DAILY PRN (Reason: Acid Reflux) dorzolamide-timolol 22.3-6.8 mg/mL drops 1 drp ophthalmic (eye) DAILY terconazole 0.8 % cream 1 appful vaginal BEDTIME 3 Days Qty: 20 0RF Referrals: Glynn Greco MD [Primary Care Provider] - 1 week Interventions: ED Discharge Assessment Last Done: 05/13/24 15:45 Discharge Date/Time: 05/13/24 15:46 Print Language: Armenian
[2024-05-13 14:09] LABS: IDNOW Serial# 08D9AD1C; Strep A Nucleic Acid Negative (Negative)
[2024-05-13 14:21] LABS: Influenza A PCR NEGATIVE (Negative); Influenza B PCR NEGATIVE (Negative); Resp Syncy Virus RNA Qual PCR NEGATIVE (Negative); SARS COV2 PCR INHOUSE NEGATIVE (Negative)
[2024-05-13 15:45] VITALS: BP 180/80; PULSE 78; RESP 18; TEMP 37.1; O2SAT 98
== END 2024-05-13 15:46 | disposition home or self-care (01) ==
PROVIDERS: Physician Assistant; Emergency Provider Emergency Medicine; PCP Internal Medicine
DX: H66.90 Otitis media, unspecified, unspecified ear (principal); J06.9 Acute upper respiratory infection, unspecified; R07.9 Chest pain, unspecified; R05.9 Cough, unspecified; J02.9 Acute pharyngitis, unspecified; R09.81 Nasal congestion; I82.409 Acute embolism and thrombosis of unspecified deep veins of unspecified lower extremity; R07.89 Other chest pain; Z79.899 Other long term (current) drug therapy
CPT/HCPCS: 0241U; 71045; 87651; 93005; 99283

== ENCOUNTER → 2024-05-13 12:54 | Outpatient (BNV) | payer OTHER, SELFPAY | PROVIDERS: Emergency Provider Emergency Medicine; PCP Internal Medicine; Visit Provider Internal Medicine Cardiovascular Disease | DX: R07.9 Chest pain, unspecified (principal) | CPT/HCPCS: 93010 ==

== ENCOUNTER 2024-06-19 09:14 | Outpatient (REF) | payer OTHER, SELFPAY | END 2024-06-19 09:15 | disposition home or self-care (01) | LOC: HO.LAB 09:14 | PROVIDERS: PCP Internal Medicine; Visit Provider Advanced Practice Midwife | DX: Z01.419 Encounter for gynecological examination (general) (routine) without abnormal findings (principal); R30.0 Dysuria; R39.89 Other symptoms and signs involving the genitourinary system | CPT/HCPCS: 81003; 87086 ==

== ENCOUNTER 2024-06-19 09:14 | Outpatient (AMB) | payer OTHER, SELFPAY ==
--- NOTE | 2024-06-19 09:30 | MHC.OFFVIS ---
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 She is doing well with concerns: pain to urinate x 5 months, finished amoxicillin 3 days ago for a tooth infection. Had Dermatology consult and treatment this year for vulvar lesions she reports were benign, no records found today of consult and findings. Attempting to eat a healthy diet with calcium and vitamin D, she uses a treadmill at home. Currently not sexually active x4yrs. Denies any vaginal dryness or irritation. STI testing offered; she declined. Last pap smear; 2019. Last mammogram; 2023. Colonoscopy is UTD. Denies any family history of breast, ovarian cancer. FH colon cancer. [facility] Medical History Morbid obesity with BMI of 40.0-44.9, adult Pure hypercholesterolemia Exertional dyspnea Fatigue Cough Lumbar degenerative disc disease Phlegmasia cerulea dolens Obstructive sleep apnea COVID-19 Hyperthyroidism Anxiety Insomnia Obstructive sleep apnea Condyloma acuminata Vitamin B12 deficiency Lung granuloma Phlegmasia cerulea dolens Chronic low back pain Vitamin D deficiency Obesity (BMI 30-39.9) Fibromyalgia Depression Neuropathy DVT (deep venous thrombosis) Asthma DDD (degenerative disc disease) Surgical History S/P laparoscopic appendectomy History of embolectomy Benign neoplasm of neck History of colonoscopy History of bilateral tubal ligation History of carpal tunnel release History of bilateral oophorectomy S/P IVC filter Family History Father Liver cirrhosis Cancer Mother Heart attack Coronary artery disease Asthma Diabetes mellitus Brother No problems noted. Sister No problems noted. Sister No problems noted. Sister No problems noted. Sister No problems noted. Sister No problems noted. Sister No problems noted. Sister No problems noted. Sister No problems noted. Sister No problems noted. Sister No problems noted. Sister No problems noted. Sister No problems noted. Sister No problems noted. Paternal Aunt Colon cancer Son Histiocytosis Son No problems noted. Son No problems noted. Social History Household Members: Children Housing: Apartment Do you presently have visiting nurse or other home services: Yes ([employer]) Alcohol intake: former Patient Tobacco Use Status: Never used Tobacco e-Cigarette/Vaping Use: Never Used Second Hand Smoke Exposure: No Advance Directives Date on File: 08/15/23 service: No Current occupational status: disabled Current occupation: right hand Cognitive needs: Yes (cane) Hearing needs: No Vision needs: Yes Female Reproductive History Menstrual Total pregnancies: 3 Full term: 3 Number of Living Children: 3 Date of last pap smear: 06/15/23 (neg pap and hpv) Date of Mammogram: 03/09/24 (Birad 1) Review of Systems Const All systems reviewed & are unremarkable except as noted in HPI and below Reports as per HPI Eyes Reports no additional complaints ENT Reports no additional complaints Card Reports no additional complaints Resp Reports no additional complaints GI Reports as per HPI and Reports no additional complaints Reports as per HPI Musc Reports no additional complaints Skin/Breast Reports as per HPI Neuro Reports no additional complaints Psych Reports no additional complaints Endo Reports no additional complaints Thony/Lymph Reports no additional complaints Aller/Immun Reports no additional complaints Physical Exam Vital Signs: Last Vital Signs BP 100/62 06/19/24 09:33 BMI result Body Mass Index 39.1 Const General: cooperative, healthy appearing, no acute distress, well developed and alert Orientation/consciousness: patient oriented x3 HEENT Head: Yes normal to inspection Eyes General: appearance normal, both eyes and all related structures Neck Neck: Yes normal visual inspection Thyroid: Thyroid normal Chest Chest palpation & inspection: normal inspection of the chest and other (no puckering, dimpling, peau de orange, retraction, discharge, masses) Breast/axilla inspection: normal inspection of the breasts Breast/axilla palpation: normal palpation of the breasts Resp Effort & Inspection: normal respiratory effort GI Inspection: Yes normal to inspection Palpation (GI): Soft to palpation Rectal Exam - Female: deferred Other: Dark brown lesions with scarring centrally on the mons area General: Yes bladder normal to palpation External Female Exam: normal external appearance and normal appearance of the urethra Speculum Exam - Vagina: normal appearance of the vagina, normal palpation, normal vaginal discharge and vagina atrophic Speculum Exam - Cervix: normal appearance of the cervix and normal palpation Bimanual exam- vagina & uterus: normal bimanual exam, normal palpation, uterine size normal, bladder normal to palpation, normal palpation and non-tender Bimanual Exam- Adnexa, other: no masses Skin General skin exam: no rashes or lesions noted Rashes: no rashes Neuro General: patient oriented x3 Cognition (Neuro): normal cognition Extrem General: Yes normal to inspection Psych Attitude: cooperative Thought process: Normal thought process present Results AMB Urinalysis, Automated UA Leukoctes 2 Porfirio/uL Last Edit by JUANITA Cortes on 06/19/24 09:44 UA Nitrite Negative Last Edit by JUANITA Cortes on 06/19/24 09:44 UA Urobilinogen 0 mg/dL Last Edit by JUANITA Cortes on 06/19/24 09:44 UA Protein 0.5 mg/dL Last Edit by JUANITA Cortes on 06/19/24 09:44 UA pH 5.5 Last Edit by JUANITA Cortes on 06/19/24 09:44 UA Blood 0.5 Hector/uL Last Edit by JUANITA Cortes on 06/19/24 09:44 UA Specific [place] 1.020 Last Edit by JUANITA Cortes on 06/19/24 09:44 UA Ketone Negative Last Edit by JUANITA Cortes on 06/19/24 09:44 UA Bilirubin 0 mg/dL Last Edit by JUANITA Cortes on 06/19/24 09:44 UA Glucose 0 mg/dL Last Edit by JUANITA Cortes on 06/19/24 09:44 Assessment & Plan Assessment & Plan (1) Encounter for well woman exam with routine gynecological exam: Code(s): Z01.419 - Encounter for gynecological examination (general) (routine) without abnormal findings Category: Medical (2) Dysuria: Code(s): R30.0 - Dysuria (3) Bladder pain: Code(s): R39.89 - Other symptoms and signs involving the genitourinary system Plan Discussed: Current recommendations for pap smears per ASCCP guidelines. Breast awareness, periodic self breast exams and yearly mammogram. Maintain a healthy lifestyle, well balanced diet including Calcium 1,200 mg and Vitamin D 600 IU daily, and regular exercise. Sign a release for dermatology records. Referral for Urology sent due to chronic bladder pain. Rx for Macrobid today until culture is back. Contact the office with any postmenopausal bleeding. Patient verbalizes understanding and agrees to the plan of care. She was given opportunity to ask questions and all questions were answered to the best of my ability. RTO in 1 year for annual zipper setter exam. This note is constructed using voice recognition software. While every effort has been made to ensure accuracy, quarryman errors may have been included. Orders: Orders Urine Culture Today R30.0 - Dysuria AMB Urinalysis Automated Today R30.0 - Dysuria Referrals Urology Referral R30.0 - Dysuria, R39.89 - Other symptoms and signs involving the genitourinary system Medications: New nitrofurantoin monohyd/m-cryst 100 mg (Macrobid) must administer with a meal/food 100 mg PO BID 5 days 10 caps 0RF UTI Discontinued nitrofurantoin monohyd/m-cryst 100 mg (Macrobid) must administer with a meal/food Discontinued Reason: No Longer Medically Relevant 100 mg PO BID 7 days 14 caps 0RF Coding Level of Care Code Est Pt Prev Care >65y(45914) Diagnoses Encounter for well woman exam with routine gynecological exam Z01.419 Dysuria R30.0 Bladder pain R39.89
[2024-06-19 09:33] VITALS: BP 100/62; BMI 39.1
== END 2024-06-19 10:19 | disposition home or self-care (01) ==
LOC: HO.HWS 09:14
PROVIDERS: PCP Internal Medicine; Visit Provider Advanced Practice Midwife
DX: Z01.419 Encounter for gynecological examination (general) (routine) without abnormal findings (principal); R30.0 Dysuria; R39.89 Other symptoms and signs involving the genitourinary system
CPT/HCPCS: 99397

== ENCOUNTER 2024-08-13 08:55 | Outpatient (REF) | payer OTHER, SELFPAY ==
[2024-08-13 17:06] LABS: Urine Cytology See Pathology rpt
== END 2024-08-13 08:56 | disposition home or self-care (01) ==
LOC: HO.LNP 08:55
PROVIDERS: PCP Internal Medicine; Visit Provider Nurse Practitioner Family
DX: R31.0 Gross hematuria (principal); R39.89 Other symptoms and signs involving the genitourinary system; R10.9 Unspecified abdominal pain; Z87.898 Personal history of other specified conditions
CPT/HCPCS: 51798; 81003; 88112; 99202

== ENCOUNTER 2024-08-13 08:55 | Outpatient (AMB) | payer OTHER, SELFPAY ==
--- NOTE | 2024-08-13 09:03 | A.OFFVIS_ITS ---
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 Accompanied by: Unknown Allergies No Known Allergies Allergy (Verified 08/13/24 09:25) Medication List - Last Reconciled 08/13/24 by LOLITA Shah acetaminophen 325 mg PO DAILY PRN albuterol sulfate 2.5 mg inhalation QID PRN albuterol sulfate 90 mcg/actuation (Ventolin HFA) 2 puffs inhalation Q6H PRN 30 days apixaban (Eliquis) 5 mg PO BID atorvastatin 80 mg PO DAILY 90 days budesonide 180 mcg/actuation (Pulmicort Flexhaler) 1 inh inhalation BID [COMPRESSION STOCKINGS (pantyhose) As directed] cyanocobalamin (vitamin B-12) 1,000 mcg PO DAILY 90 days dorzolamide-timolol 22.3-6.8 mg/mL 1 drp ophthalmic (eye) DAILY ergocalciferol (vitamin D2) 1,250 mcg PO QWEEK 3 months Flovent HFA 220 mcg/actuation (fluticasone propionate) 2 puffs inhalation BID 30 days NS fluticasone furoate 100 mcg/actuation (Arnuity Ellipta) 1 inh inhalation DAILY gabapentin 600 mg PO TID latanoprost 0.005% 1 drp ophthalmic (eye) BEDTIME lithium carbonate ER 450 mg PO BID lorazepam 0.5 mg PO QAM PRN lurasidone (Latuda) 40 mg PO BEDTIME omeprazole 20 mg PO DAILY PRN [rollator walker with seat As directed] terconazole 0.8% 1 appful vaginal BEDTIME 3 days tramadol 50 mg PO BID PRN 30 days venlafaxine ER 150 mg PO QPM zolpidem (Ambien) 10 mg PO BEDTIME HPI Comments Details: Nato is a pleasant 63-year-old Slovenian-speaking female patient of Dr. Greco who was accompanied by her family member at today's office visit. She has a past medical history of obesity, hypercholesteremia, obstructive sleep apnea, anxiety, insomnia, vitamin B12 deficiency, fibromyalgia, depression, neuropathy, DVT, asthma, and degenerative disc disease. She presents to the office today as a new patient for gross hematuria. In discussion with the patient today she reports noting episodes of gross hematuria over the last year. She reports having followed up with her PCP for ongoing hematuria and dysuria she has been experiencing at which time referral was made to Urology for further assessment evaluation. In office urinalysis results reviewed with the patient today no hematuria noted. PVR 0 mL. In review of patient's chart it appears urine cultures 05/13, 01/14, 04/13, and 06/13 noted no bacterial growth. When asked she denies any previous history of nicotine dependence and or workplace chemical exposure. She reports noting over the last 2 weeks to be having ongoing left- sided flank pain that radiates to her lower abdominal area. We discussed at length potential causes of gross hematuria as well as further workup to include CT urogram and in office cystoscopy. She currently denies any bothersome urinary issues however does report episodes of dysuria in the past. When asked she denies urinary urgency, urinary frequency, incontinence, nocturia, foul s melling urine, changes to urinary stream, flank pain, fever, and or chills. She is happy with her current voiding parameters. She otherwise offers no other issues or concerns at this time [facility] Medical History Morbid obesity with BMI of 40.0-44.9, adult Pure hypercholesterolemia Exertional dyspnea Fatigue Cough Lumbar degenerative disc disease Phlegmasia cerulea dolens Obstructive sleep apnea COVID-19 Hyperthyroidism Anxiety Insomnia Obstructive sleep apnea Condyloma acuminata Vitamin B12 deficiency Lung granuloma Phlegmasia cerulea dolens Chronic low back pain Vitamin D deficiency Obesity (BMI 30-39.9) Fibromyalgia Depression Neuropathy DVT (deep venous thrombosis) Asthma DDD (degenerative disc disease) Surgical History S/P laparoscopic appendectomy History of embolectomy Benign neoplasm of neck History of colonoscopy History of bilateral tubal ligation History of carpal tunnel release History of bilateral oophorectomy S/P IVC filter Family History Father Liver cirrhosis Cancer Mother Heart attack Coronary artery disease Asthma Diabetes mellitus Brother No problems noted. Sister No problems noted. Sister No problems noted. Sister No problems noted. Sister No problems noted. Sister No problems noted. Sister No problems noted. Sister No problems noted. Sister No problems noted. Sister No problems noted. Sister No problems noted. Sister No problems noted. Sister No problems noted. Sister No problems noted. Paternal Aunt Colon cancer Son Histiocytosis Son No problems noted. Son No problems noted. 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) Alcohol intake: former Patient Tobacco Use Status: Never used Tobacco e-Cigarette/Vaping Use: Never Used Second Hand Smoke Exposure: No Advance Directives Date on File: 08/15/23 service: No Current occupational status: disabled Current occupation: right hand Cognitive needs: Yes (cane) Hearing needs: No Vision needs: Yes Review of Systems Eyes Reports no additional complaints ENT Reports no additional complaints Card Reports as per HPI Resp Reports as per HPI GI Reports no additional complaints Reports as per HPI Musc Reports as per HPI Neuro Reports as per HPI Psych Reports as per HPI Endo Reports no additional complaints Thony/Lymph Reports no additional complaints Aller/Immun Reports no additional complaints Physical Exam Const General: cooperative, healthy appearing, comfortable, no acute distress, well developed, alert and awake Nutritional Appearance: overweight Orientation/consciousness: patient oriented x3 Limitations: no limitations HEENT Head: Yes normal to inspection, Yes normocephalic and Yes atraumatic Ears: hearing grossly normal bilaterally Eyes General: appearance normal, both eyes and all related structures Neck Neck: Yes normal visual inspection and Yes trachea midline Chest Chest palpation & inspection: normal inspection of the chest Resp Effort & Inspection: normal respiratory effort and able to speak in complete sen tences Cardio Rate: regular rate GI Inspection: Yes normal to inspection General: Yes no CVA tenderness Back/Spine/Pelvis Back: no CVA tenderness Skin General skin exam: no rashes or lesions noted Neuro General: patient oriented x3 Extrem General: Yes normal to inspection Psych Appearance: grossly normal and well kempt Mental Status: mental status grossly normal Speech and movement: Normal speech and movement present and Clear speech present Affect: normal affect Attitude: cooperative Thought process: Normal thought process present Thought content: Normal thought content present Insight: Fair insight present (Psych) Judgement: Fair judgement present (Psych) Office Procedures Post Void Residual Post Residual Void Post Void Residual (PVR): 0 11304-Qhjt Void Residual by ultrasound Results AMB Urinalysis, Automated UA Leukoctes 0 Porfirio/uL Last Edit by Rolando Bland on 08/13/24 09:21 UA Nitrite Last Edit by Rolando Bland on 08/13/24 09:21 UA Urobilinogen 0.2 mg/dL Last Edit by Rolando Bland on 08/13/24 09:21 UA Protein 0 mg/dL Last Edit by Rolando Bland on 08/13/24 09:21 UA pH 6.0 Last Edit by Rolando Bland on 08/13/24 09:21 UA Blood 0 Hector/uL Last Edit by Rolando Bland on 08/13/24 09:21 UA Specific Donna 1.010 Last Edit by Rolando Bland on 08/13/24 09:21 UA Ketone Negative Last Edit by Rolando Bland on 08/13/24 09:21 UA Bilirubin 0 mg/dL Last Edit by Rolando Bland on 08/13/24 09:21 UA Glucose 0 mg/dL Last Edit by Rolando Bland on 08/13/24 09:21 Results Reviewed Results Reviewed: Laboratory Last Values Urine pH (Auto) 6.0 08/13/24 09:09 Specific Donna (Auto) 1.010 08/13/24 09:09 Urine Protein (Auto) 0 mg/dL 08/13/24 09:09 Glucose (UA)(Auto) 0 mg/dL 08/13/24 09:09 Urine Ketones (Auto) Negative 08/13/24 09:09 Urine Blood (Auto) 0 Hector/uL 08/13/24 09:09 Urine Bilirubin (Auto) 0 mg/dL 08/13/24 09:09 Urine Urobilinogen (Auto) 0.2 mg/dL 08/13/24 09:09 Leukocyte Esterase (Auto) 0 Porfirio/uL 08/13/24 09:09 Assessment & Plan Assessment & Plan (1) Gross hematuria: Code(s): R31.0 - Gross hematuria Category: Medical (2) History of dysuria: Code(s): Z87.898 - Personal history of other specified conditions Category: Medical (3) Flank pain: Code(s): R10.9 - Unspecified abdominal pain Category: Medical Plan In office urinalysis results reviewed with the patient today; as noted above; will send for urine cytology. Will obtain CT urogram for further assessment evaluation. BUN and creatinine ordered for imaging. Patient currently denies any bothersome urinary issues. She reports be happy with current voiding parameters. Discussed at length potential causes of gross hematuria as well as further workup in risks and benefits of these interventions. Follow-up in office cystoscopy with imaging and labs to be completed prior; or sooner with any issues, concerns, and or questions. Orders: Orders AMB Post Void Residual by ultrasound Today R39.89 - Other symptoms and signs involving the genitourinary system Urine Cytology Today R31.0 - Gross hematuria AMB Urinalysis Automated Today Z13.9 - Encounter for screening, unspecified CT urogram Today R31.0 - Gross hematuria Blood Urea Nitrogen Today R31.0 - Gross hematuria Creatinine Today R31.0 - Gross hematuria Patient Instructions: The patient had an opportunity to ask questions regarding the treatment plan. All questions were answered. Physical exam, labs, and imaging were discussed and reviewed in detail. As well as risks, benefits, and discussion of treatment choices. No major barriers to understanding were identified. The patient expressed understanding and agreement with the above treatment plan. The patient was made aware they should contact our office by phone for worsening of their current condition, the appearance of new symptoms, or with any questions or concerns. Compliance is encouraged with any medications and follow up testing that is ordered. It is a privilege to be allowed the opportunity to participate in? your urological care.? Again, if you have any questions or concerns If you have any questions or concerns please do not hesitate to contact me. The office is [phone]. This note is constructed using voice recognition software. While every effort has been made to ensure accuracy auto air conditioning mechanic errors may have been included. Yours sincerely, LOLITA Shah Coding Level of Care Code New Pt Level 3 (29947) Diagnoses Gross hematuria R31.0 History of dysuria Z87.898 Flank pain R10.9 CPT Codes Post Residual Void - PVR CPT Code: 96286-Bnfp Void Residual by ultrasound ([id number])
== END 2024-08-13 09:29 | disposition home or self-care (01) ==
PROVIDERS: PCP Internal Medicine; Visit Provider Nurse Practitioner Family
DX: R31.0 Gross hematuria (principal); Z87.898 Personal history of other specified conditions; R10.9 Unspecified abdominal pain; Z13.9 Encounter for screening, unspecified
CPT/HCPCS: 99203

== ENCOUNTER 2024-08-23 09:18 | Outpatient (AMB) | payer OTHER, SELFPAY ==
--- NOTE | 2024-08-23 09:30 | MHC.OFFWIV ---
Intake Vital Signs 08/23/24 09:32 Height 5 ft 5 in Weight 227 lb BMI 37.8 BP 110/70 Blood Pressure Location Lt brachial Position Sitting Pulse 53 Pulse Source Pulse Oximeter Pulse Oximetry (%) 100 Oxygen Delivery Method Room Air Intake Visit Reasons: EP-rt knee pain Intake Note: Patient here for right knee pain that has been present for about 3-4 days. she has a hx of blood clot in left leg Patient Tobacco Use Status: Never used Tobacco Allergies No Known Allergies Allergy (Verified 08/23/24 09:34) Do you need a note to return to daycare/school/sports/work: No HPI HPI Comments History of Present Illness Details Patient is a 63-year-old Mongolian-speaking female complaining of right knee pain. She states she does have a history of blood clots in her left leg and she was placed on Eliquis which she takes twice a day and has been taking as prescribed. She denies any trauma to the right knee and she does use a cane at baseline but that is for her left leg chronic pain. She has not taken any medications or ice to try to make her knee feel better. Walking makes it worse. Interpretation by JACI Palm in office [facility] Medical History Morbid obesity with BMI of 40.0-44.9, adult Pure hypercholesterolemia Exertional dyspnea Fatigue Cough Lumbar degenerative disc disease Phlegmasia cerulea dolens Obstructive sleep apnea COVID-19 Hyperthyroidism Anxiety Insomnia Obstructive sleep apnea Condyloma acuminata Vitamin B12 deficiency Lung granuloma Phlegmasia cerulea dolens Chronic low back pain Vitamin D deficiency Obesity (BMI 30-39.9) Fibromyalgia Depression Neuropathy DVT (deep venous thrombosis) Asthma DDD (degenerative disc disease) Surgical History S/P laparoscopic appendectomy History of embolectomy Benign neoplasm of neck History of colonoscopy History of bilateral tubal ligation History of carpal tunnel release History of bilateral oophorectomy S/P IVC filter Family History Father Liver cirrhosis Cancer Mother Heart attack Coronary artery disease Asthma Diabetes mellitus Brother No problems noted. Sister No problems noted. Sister No problems noted. Sister No problems noted. Sister No problems noted. Sister No problems noted. Sister No problems noted. Sister No problems noted. Sister No problems noted. Sister No problems noted. Sister No problems noted. Sister No problems noted. Sister No problems noted. Sister No problems noted. Paternal Aunt Colon cancer Son Histiocytosis Son No problems noted. Son No problems noted. 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: former Patient Tobacco Use Status: Never used Tobacco e-Cigarette/Vaping Use: Never Used Second Hand Smoke Exposure: No Advance Directives Date on File: 08/15/23 service: No Current occupational status: disabled Current occupation: right hand Cognitive needs: Yes (cane) Hearing needs: No Vision needs: Yes Review of Systems Const All systems reviewed & are unremarkable except as noted in HPI and below Physical Exam Vital Signs: Last Vital Signs Pulse 53 08/23/24 09:32 BP 110/70 08/23/24 09:32 Pulse Ox 100 08/23/24 09:32 Oxygen Delivery Method Room Air 08/23/24 09:32 BMI result Body Mass Index 37.8 Const General: cooperative, healthy appearing, comfortable and no acute distress Orientation/consciousness: patient oriented x3 Limitations: no limitations HEENT Head: Yes normal to inspection Resp Effort & Inspection: normal respiratory effort and able to speak in complete sentences Neuro General: patient oriented x3 Extrem Right lower extremity: knee Details: normal to inspection, tenderness Location: of the infrapatellar area (medial), normal ROM and knee ligament exam normal; no swelling, no abrasions, no lacerations, no ecchymosis and no unusual warmth Assessment & Plan Assessment & Plan (1) Infrapatellar bursitis of right knee: Code(s): M70.51 - Other bursitis of knee, right knee Plan: Wrapped knee with Shun wrap, recommended using ice and Tylenol as well as resting the knee. If no improvement in her symptoms, she should follow up with her primary care doctor Plan See above Coding Level of Care Code Est Pt Level 3 (01601) Diagnoses Infrapatellar bursitis of right knee M70.51
[2024-08-23 09:32] VITALS: BP 110/70; PULSE 53; O2SAT 100; BMI 37.8
== END 2024-08-23 10:15 | disposition home or self-care (01) ==
PROVIDERS: PCP Internal Medicine; Visit Provider Physician Assistant
DX: M70.51 Other bursitis of knee, right knee (principal)

== ENCOUNTER → 2024-08-23 09:18 | Outpatient (BNVA) | payer OTHER, SELFPAY | PROVIDERS: PCP Internal Medicine | DX: M70.51 Other bursitis of knee, right knee (principal) | CPT/HCPCS: 99212 ==

== ENCOUNTER 2024-08-29 08:06 | Outpatient (REF) | payer OTHER, SELFPAY ==
[2024-08-29 08:28] LABS: MANUAL DIFF FLAG NO
[2024-08-29 08:54] LABS: Basophils Absolute Auto 0.1 X10*3/uL (0.0-0.2); Basophils Percent Auto 0.9 % (0-2); Eosinophils Absolute Auto 0.1 X10*3/uL (0.0-0.4); Eosinophils Percent Auto 1.2 % (0-4); Hematocrit 35.5 % (37.0-47.0); Hemoglobin 11.5 g/dl (12.0-16.0); Imm Gran Abs Auto 0.01 X10*3/uL (0.00-0.03); Imm Gran Pct Auto 0.2 % (0.0-0.4); Lymphocytes Absolute Auto 2.4 X10*3/uL (1.2-4.9); Lymphocytes Percent Auto 40.6 % (20-40); Mean Corpuscular HGB Conc 32.4 g/dl (31.0-35.0); Mean Corpuscular Hemoglobin 27.2 pg (27.0-33.0); Mean Corpuscular Volume 83.9 fL (80.0-98.0); Monocytes Absolute Auto 0.6 X10*3/uL (0.1-1.2); Monocytes Percent Auto 10.1 % (2-11); Neutrophils Absolute Auto 2.8 x10*3/uL (2.0-8.3); Platelet Count 252 X10*3/uL (160-400); Red Blood Count 4.23 X10*6/uL (4.20-5.50); Red Cell Distribution Width 14.6 % (11.0-16.0); White Blood Count 5.9 X10*3/uL (4.8-10.8)
[2024-08-29 09:03] LABS: Appearance Urine Clear; Color Urine Yellow; Glucose Urine UA Negative (Negative); Leukocyte Esterase Urine Small (1+) (Negative); Nitrite Urine Negative (Negative); PH 5.5 (5.0-9.0); UMIC TRIGGER UACC YES; Urine Blood Negative (Negative); Urine Ketones Negative (Negative); Urine Protein Negative (Neg-Trace)
[2024-08-29 09:20] LABS: Bacteria Urine None Seen (None Seen); Hyaline Casts Urine 0-2 /LPF (0-2); RBC Urine 0-2 /HPF (0-2); UACC Culture Trigger YES; WBC Urine 0-5 /HPF (0-5)
[2024-08-29 09:26] LABS: Lithium < 0.10 mmol/L (0.60-1.20)
[2024-08-29 09:44] LABS: Alanine Aminotransferase 15 U/L (0-31); Alkaline Phosphatase 78 U/L (39-117); Anion Gap 12 (12-20); Aspartate Amino Transferase 22 U/L (5-31); Bilirubin Total 0.5 mg/dL (0.0-1.0); Blood Urea Nitrogen 12 mg/dL (9-16); Calcium 9.2 mg/dL (8.4-10.2); Carbon Dioxide 21 mmol/L (22-29); Chloride 112 mmol/L (96-108); Cholesterol 160 mg/dL (<200); Estimated Glomerular Filt Rate > 60; Glucose Fasting 98 mg/dL (60-99); HDL Cholesterol 51 mg/dL (>40); LDL Cholesterol Calculated 93 mg/dL (<100); Potassium 4.1 mmol/L (3.3-5.1); Sodium 141 mmol/L (135-145); Total Protein 7.1 g/dL (6.5-8.0); Triglycerides 81 mg/dL (<150)
[2024-08-29 09:54] LABS: Vitamin D 25-OH Total 20.5 ng/mL (>30)
[2024-08-29 10:04] LABS: Vitamin B12 300 pg/mL (200-900)
[2024-08-29 11:49] LABS: Free T4 (Free Thyroxine) 0.89 ng/dL (0.71-1.85)
== END 2024-08-29 08:07 | disposition home or self-care (01) ==
LOC: HO.LAB 08:06
PROVIDERS: PCP Internal Medicine; Visit Provider Internal Medicine
DX: E53.8 Deficiency of other specified B group vitamins (principal); E78.00 Pure hypercholesterolemia, unspecified; E55.9 Vitamin D deficiency, unspecified; D64.9 Anemia, unspecified; Z51.81 Encounter for therapeutic drug level monitoring; R30.0 Dysuria
CPT/HCPCS: 36415; 80053; 80061; 80178; 81001; 81003; 82306; 82607; 82746; 84439; 84443; 85025; 87086

== ENCOUNTER 2024-08-31 07:31 | Outpatient (REF) | payer OTHER, SELFPAY ==
--- NOTE | ~2024-08-31 | XR_ITS ---
EXAMINATION: XR KNEE, RIGHT CLINICAL INFORMATION: Pain COMPARISON: None available. TECHNIQUE: Four views of the right knee. FINDINGS: Mild narrowing of the medial tibiofemoral compartment with tiny osteophytes, new from prior study. No large effusion. No acute fracture or dislocation. XR/XR knee RT 4V IMPRESSION: Mild degenerative changes of the right knee. No acute fracture or dislocation. Electronically signed by: Shruthi Stevens MD 09/11/2024 08:15 PM EDT
== END 2024-08-31 07:32 | disposition home or self-care (01) ==
LOC: HO.XRAY 07:31
PROVIDERS: PCP Internal Medicine; Visit Provider Internal Medicine
DX: M25.561 Pain in right knee (principal)
CPT/HCPCS: 73564

== ENCOUNTER 2024-09-03 10:49 | Outpatient (AMB) | payer OTHER, MEDICAID, SELFPAY ==
--- NOTE | 2024-09-03 11:08 | MHC.PC.OV ---
Vital Signs 09/03/24 11:09 Height 5 ft 5 in Weight 225 lb 2 oz BMI 37.5 BP 118/76 Blood Pressure Location Lt brachial Position Sitting Pulse 68 Pulse Source Pulse Oximeter Pulse Oximetry (%) 98 Oxygen Delivery Method Room Air Intake Visit Reasons: hyperlipidemia Biomedical Scientist Required: No Accompanied by: Self / Same As Patient Allergies No Known Allergies Allergy (Verified 09/03/24 11:31) Medication List - Last Reconciled 09/03/24 by Glynn Greco MD acetaminophen 325 mg PO DAILY PRN albuterol sulfate 2.5 mg inhalation QID PRN albuterol sulfate 90 mcg/actuation (Ventolin HFA) 2 puffs inhalation Q6H PRN 30 days apixaban (Eliquis) 5 mg PO BID atorvastatin 80 mg PO DAILY 90 days budesonide 180 mcg/actuation (Pulmicort Flexhaler) 1 inh inhalation BID [COMPRESSION STOCKINGS (pantyhose) As directed] cyanocobalamin (vitamin B-12) 1,000 mcg PO DAILY 90 days dorzolamide-timolol 22.3-6.8 mg/mL 1 drp ophthalmic (eye) DAILY ergocalciferol (vitamin D2) 1,250 mcg PO QWEEK 3 months Flovent HFA 220 mcg/actuation (fluticasone propionate) 2 puffs inhalation BID 30 days NS fluticasone furoate 100 mcg/actuation (Arnuity Ellipta) 1 inh inhalation DAILY gabapentin 600 mg PO TID latanoprost 0.005% 1 drp ophthalmic (eye) BEDTIME lithium carbonate ER 450 mg PO BID lorazepam 0.5 mg PO QAM PRN lurasidone (Latuda) 40 mg PO BEDTIME omeprazole 20 mg PO DAILY PRN [rollator walker with seat As directed] terconazole 0.8% 1 appful vaginal BEDTIME 3 days tramadol 50 mg PO BID PRN 30 days venlafaxine ER 150 mg PO QPM zolpidem (Ambien) 10 mg PO BEDTIME Tobacco use date assessed: 09/03/24 Fall risk assessment: 1 Fall in past year Last assessed Fall Risk: 09/03/24 Dental Screening Dental Screen Date: 09/03/24 Did you have a dental visit in the last 12 months?: Yes Did you have a dental problem in the last 6 months where you did not have access to dental care?: No Was dental information given to patient?: Patient has dentist HPI hyperlipidemia HPI Details Patient comes in today for her follow up visit States that she continues to experiencing frequent pain in both of her feet (primarily over the top of her feet) - was seen by podiatry a couple of months ago and was reportedly advised that she has arthritis in both feet and that they can perform surgery to help relieve her pain but the relief would be short-lived as her pain will recur at some point so surgery is not the best recommended solution in her case She has also been experiencing increased pain and swelling in her right knee for a while now and would like to know how her x-rays done a few days ago came out States that she has also been breaking out in painful cold sores on her lips lately and that she has not been sick over the past few weeks She denies any headaches or dizziness lately; denies any fever, sore throat or recent cough/cold symptoms Denies any chest pains, no increased SOB No nausea/vomiting, no abdominal pain No change in bowel habits noted Needs a couple of her Rx refilled She had her follow up labs done a few days ago - to discuss her results Would also like to get her flu shot today [facility] Medical History (Updated 09/03/24 @ 12:28 by Glynn Greco MD) Insomnia Morbid obesity with BMI of 40.0-44.9, adult Pure hypercholesterolemia Exertional dyspnea Fatigue Cough Lumbar degenerative disc disease Phlegmasia cerulea dolens Obstructive sleep apnea COVID-19 Hyperthyroidism Anxiety Obstructive sleep apnea Condyloma acuminata Vitamin B12 deficiency Lung granuloma Phlegmasia cerulea dolens Chronic low back pain Vitamin D deficiency Obesity (BMI 30-39.9) Fibromyalgia Depression Neuropathy DVT (deep venous thrombosis) Asthma DDD (degenerative disc disease) Surgical History S/P laparoscopic appendectomy History of embolectomy Benign neoplasm of neck History of colonoscopy History of bilateral tubal ligation History of carpal tunnel release History of bilateral oophorectomy S/P IVC filter Family History Father Liver cirrhosis Cancer Mother Heart attack Coronary artery disease Asthma Diabetes mellitus Brother No problems noted. Sister No problems noted. Sister No problems noted. Sister No problems noted. Sister No problems noted. Sister No problems noted. Sister No problems noted. Sister No problems noted. Sister No problems noted. Sister No problems noted. Sister No problems noted. Sister No problems noted. Sister No problems noted. Sister No problems noted. Paternal Aunt Colon cancer Son Histiocytosis Son No problems noted. Son No problems noted. Social History Household Members: Children Housing: Apartment Do you presently have visiting nurse or other home services: Yes (LPC) Alcohol intake: former Patient Tobacco Use Status: Never used Tobacco e-Cigarette/Vaping Use: Never Used Second Hand Smoke Exposure: No Advance Directives Date on File: 08/15/23 service: No Current occupational status: disabled Current occupation: right hand Cognitive needs: Yes (cane) Hearing needs: No Vision needs: Yes Questionnaire PHQ-9 Over the last 2 weeks, how often have you been bothered by any of the following problems? 1. Little interest or pleasure in doing things: nearly every day 2. Feeling down, depressed, or hopeless: nearly every day 3. Trouble falling or staying asleep, or sleeping too much: several days 4. Feeling tired or having little energy: nearly every day 5. Poor appetite or overeating: not at all 6. Feeling bad about yourself - or that you are a failure or have let yourself or your family down: not at all 7. Trouble concentrating on things, such as reading the newspaper or watching television: nearly every day 8. Moving or speaking so slowly that other people could have noticed. Or the opposite - being so fidgety or restless that you have been moving around a lot more than usual: not at all 9. Thoughts that you would be better off or of hurting yourself in some way: not at all Total score: 13 Depression Screening Interpretation: Positive Depression Screening Follow-up: Existing condition and In treatment Depression Screening Done: Yes 98556 - PHQ-9 Billing: Yes Source: Developed by Drs. Jamel Hong, Carmen Villanueva, Gilbert Jara and colleagues, with an educational son from [employer]. Thrive Questionnaire Date Thrive assessed: 09/03/24 I am a: Patient What is your living situation today?: I have a steady place to live Within the past 12 months, did the food you bought not last and you didn't have the money to get more?: Never true Within the past 12 months, did you worry whether your food would run out before you got money to buy more?: Never true Do you have trouble paying for medicines?: No Do you have trouble getting transportation to medical appointments?: No Do you have trouble paying your heating and electricity bill?: No Do you have trouble taking care of your child, family member or friend?: No Do you have trouble with day-to-day activities such as bathing, preparing meals, shopping, managing finances, etc.?: No Are you currently unemployed and looking for a job?: No Are you interested in more education?: No Please select the resources that you would like help with: None Currently or been in a relationship where the following occur: No concerns reported THRIVE Score: 0 AUDIT C Alcohol Use Questionnaire (AUDIT-C) 1. How often do you have a drink containing alcohol?: Never 2. How many drinks containing alcohol do you have on a typical day when you are drinking?: 1 or 2 3. How often do you have six or more drinks on one occasion?: Never Total Score: 0 Score Reviewed/Action Taken: Yes FIDELIA-7 AMB Questionnaire FIDELIA-7 Date FIDELIA - 7 assessed: 09/03/24 Feeling nervous, anxious, or on edge: 0 = Not at all Not being able to stop or control worryin = Not at all Worrying too much about different things: 0 = Not at all Trouble relaxin = Not at all Being so restless that it is hard to sit still: 0 = Not at all Becoming easily annoyed or irritable: 0 = Not at all Feeling afraid as if something awful might happen: 0 = Not at all Total FIDELIA-7 score (0-4 normal; 5-9 mild; 10-14 moderate; 15-21 severe): 0 Source: Developed by Drs. Jamel Hong, Carmen Villanueva, Gilbert Jara and colleagues, with an educational son from [employer]. Review of Systems Const Denies chills, Reports fatigue (chronic), Denies fever(s) and Denies headache(s) ENT Details: (+) recurrent painful cold sores on her lips lately Denies dysphagia, Denies dizziness, Denies otalgia, Denies headache(s), Reports neck pain, Denies odynophagia, Denies sinus pain and Denies sore throat Card Denies chest pain, Denies palpitations and Reports dyspnea on exertion (mild; chronic) Resp Denies chest congestion, Reports cough (occasional, non-productive), Reports dyspnea on exertion (mild; chronic) and Denies wheezing GI Denies abdominal pain, Denies constipation, Denies dysphagia, Denies heartburn, Reports loose stools (lately - s/p cholecytectomy; stool sometimes (+)mucus), Denies nausea, Denies odynophagia and Denies vomiting Denies difficulty voiding, Denies nocturia, Denies dysuria (but sometimes c/o bladder pressure ), Reports urinary incontinence, Denies urinary urgency and Denies vaginal discharge Musc Details: increasing pain over the top of both feet lately Reports back pain, Reports arthralgias (involving multiple joints - chronic; in the right knee lately), Reports joint swelling (in the right knee), Reports neck pain and Reports stiffness Skin/Breast Denies rash Neuro Denies dizziness, Denies headache(s) and Reports paresthesias (over the lateral aspect of the right thigh - on and off) Psych Denies anxiety Endo Reports fatigue (chronic) and Denies palpitations Aller/Immun Denies wheezing Physical exam (Primary Care) Vital Signs: Last Vital Signs Pulse 68 09/03/24 11:09 BP 118/76 09/03/24 11:09 Pulse Ox 98 09/03/24 11:09 Oxygen Delivery Method Room Air 09/03/24 11:09 BMI result Body Mass Index 37.5 Tobacco/Smoking Status: Tobacco use Status Tobacco use date assessed 09/03/24 09/03/24 11:10 Patient Tobacco Use Status Never used Tobacco 09/03/24 11:10 e-Cigarette/Vaping Use Never Used 09/03/24 11:10 PHQ-9: PHQ-9 Score PHQ-9: Total score 13 09/03/24 11:26 Depression Screening Interpretation: Positive Depression Screening Follow-up: Existing condition and In treatment Thrive Assessment: Date of Thrive Assessment Date Thrive assessed 09/03/24 09/03/24 11:10 Currently or been in a relationship where the following occur: No concerns reported Const General: no acute distress and alert HENMT Ears: TM's normal bilaterally and EAC's normal Mouth: lip normal (no lesions noted) Throat: Yes posterior oropharynx normal and Yes tonsils normal (no TP congestion) Neck Neck: Yes no lymphadenopathy Thyroid: Thyroid normal Resp Auscultation: clear to auscultation bilaterally, no rales, no wheezes and diminished lung sounds (slightly) bilateral Cardio Rate: regular rate Rhythm: regular rhythm Heart sounds: no murmurs GI Palpation (GI): Soft to palpation and nontender Auscultation: normal bowel sounds General: Yes no CVA tenderness Back/Spine/Pelvis Back: no CVA tenderness Cervical Spine: cervical muscular tenderness (bilateral) Thoracic/Lumbar Spine: paraspinal muscle tenderness bilaterally and lumbar spinal tenderness (mild) Skin Rashes: no rashes Extrem General: No clubbing, No cyanosis and Yes edema (1+ bipedal edema) Right upper extremity: wrist Details: tenderness Location: of the volar wrist; Phalen's positive Right lower extremity: knee Details: tenderness and swelling (mild) Location: of the patella and of the pre-patellar area and foot Details: tenderness Location: of the dorsal foot Left lower extremity: foot Details: tenderness Location: of the dorsal foot Office Procedures Flu Questionnaire Does the patient have a severe egg allergy?: No Does the patient have severe life threatening allergies?: No Does the patient have a fever or illness today?: No Has the patient ever had Guillain-Sanford Syndrome?: No Has the patient ever had any past reaction to a flu shot?: No Immunizations Fluarix Triv [id number] (PF) 45 mcg (15 mcg x 3)/0.5 mL IM syringe Performing Provider: Glynn Greco MD [facility] [place] [facility] Administered by: JUANITA Boyer on 09/03/24 11:25 Dose Route Admin Location Dispensed Lot Number Expiration Date [facility] Rn Ortho 0.5 mL IM Left Deltoid 0.5 mL [id number] 05/20/25 [id number] LogMeIn VIS Given Date VIS Provided VIS Publication Date 09/03/24 Single Vaccine 21 Eligibility Eligibility Date Funding Source Not [facility] Eligible 09/03/24 Private Results Reviewed Results Reviewed: Laboratory Tests 08/29/24 08:26 WBC 5.9 Hgb 11.5 L Hct 35.5 L Plt Count 252 Sodium 141 Potassium 4.1 Creatinine 0.90 Estimated GFR > 60 Fasting Glucose 98 Calcium 9.2 AST 22 ALT 15 Triglycerides 81 Cholesterol 160 LDL Cholesterol, Calc 93 HDL Cholesterol 51 Vitamin B12 300 25-OH Vitamin D Total 20.5 L TSH 5.80 H Free T4 0.89 Ur Specific [place] 1.020 Urine Protein Negative Urine Glucose (UA) Negative Urine Blood Negative Urine Nitrite Negative Ur Leukocyte Esterase Small (1+) H [place] < 0.10 L Coding Level of Care Code Est Pt Level 4 (52448) Diagnoses Pain and swelling of right knee M25.561; M25.461 Pure hypercholesterolemia E78.00 Elevated blood pressure reading R03.0 Moderate persistent asthma with acute exacerbation J45.41 Asthma severity: moderate Asthma persistence: persistent Asthma complication type: with acute exacerbation Obstructive sleep apnea G47.33 Phlegmasia cerulea dolens, unspecified laterality I80.209 Laterality: unspecified laterality Fibromyalgia M79.7 Neuropathy G62.9 Carpal tunnel syndrome of right wrist G56.01 Vitamin B12 deficiency E53.8 Vitamin D deficiency E55.9 Insomnia, unspecified type G47.00 Insomnia type: unspecified Anxiety F41.9 Episode of recurrent major depressive disorder, unspecified depression episode severity F33.9 Depression Type: major depressive disorder Major depression recurrence: recurrent Active/Remission status: currently active Major depression episode severity: unspecified Obesity (BMI 30-39.9) E66.9 Assessment & Plan Assessment & Plan (1) Pain and swelling of right knee: Code(s): M25.561 - Pain in right knee; M25.461 - Effusion, right knee Category: Medical Plan: Have advised patient that the report of her right knee x-rays done a few days ago is not yet available for review at this time Will go ahead and refer her to orthopedics for further evaluation and management (2) Pure hypercholesterolemia: Code(s): E78.00 - Pure hypercholesterolemia, unspecified Category: Medical Plan: Results of her labs done a few days ago reviewed and discussed with patient Reinforced low cholesterol diet Continue Atorvastatin 80 mg QD Will recheck her labs and fasting lipids in 4 months for follow-up (3) Elevated blood pressure reading: Code(s): R03.0 - Elevated blood-pressure reading, without diagnosis of hypertension Category: Medical Plan: Her BP today remains well-controlled Reinforced low sodium diet Patient is reminded to continue monitoring her BP regularly (4) Asthma: Comment: As per spirometry. There is no significant obstructive disorder, So it seems that she has only mild intermittent bronchial asthma. Explained to her through the vocational rehabilitation specialist and she understands well. [place] : No need to use Flovent. Use ProAir 2 puffs Q 4-6 hours p.r.n., but avoid to use every day. Code(s): J45.909 - Unspecified asthma, uncomplicated Category: Medical Qualifiers: Asthma severity: moderate Asthma persistence: persistent Asthma complication type: with acute exacerbation Qualified Code(s): J45.41 - Moderate persistent asthma with (acute) exacerbation Plan: Appears controlled at present Continue Flovent HFA Aerosol 220 MCG/ACT 2 Inhalations BID and Ventolin HFA 108 (90 Base) MCG/ACT, 2 puffs every 6 hrs as needed She has been follow up with pulmonary (Dr. Grey) regularly for her asthma but has not been seen since late 2021 and has been advised to reach out to pulmonary to schedule a follow up appt with them ALFRED (5) Obstructive sleep apnea: Code(s): G47.33 - Obstructive sleep apnea (adult) (pediatric) Category: Medical Plan: She has not been able to use her CPAP device for a while now due to poor mask fit Follow up with Sleep Medicine as scheduled (6) 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 - goes to the Coumadin clinic for PT/INR monitoring Code(s): I80.209 - Phlebitis and thrombophlebitis of unspecified deep vessels of unspecified lower extremity Category: Medical Qualifiers: Laterality: unspecified laterality Qualified Code(s): I80.209 - Phlebitis and thrombophlebitis of unspecified deep vessels of unspecified lower extremity Plan: Continue Eliquis 5 mg BID She was on Warfarin Sodium Tablet, 5 MG, 2 tablets QD in the past but was switched over to Eliquis 5 mg BID by hematology a couple of years ago Follow up with hematology as scheduled (7) Fibromyalgia: Code(s): M79.7 - Fibromyalgia Category: Medical Plan: Continue Tizanidine HCl 4 mg TID PRN for muscle pains and Tylenol Tablet, 325 MG, 2 tablets Orally every 12 hrs as needed as well as Gabapentin 600 mg TID for pain control/management She is again encouraged to try to stay active and exercise regularly to help manage her fibromyalgia symptoms. (8) Neuropathy: Code(s): G62.9 - Polyneuropathy, unspecified Category: Medical Plan: Continue Gabapentin 600 MG 1 tablet 3 times a day Will consider repeating NCV if symptoms persist/worsen (9) Carpal tunnel syndrome of right wrist: Code(s): G56.01 - Carpal tunnel syndrome, right upper limb Category: Medical Plan: (+) Hx of median nerve release a few years ago but symptoms appear to have recurred since and has gotten worse lately Offered to send her for repeat MCV & EMG but patient declined - states that she still remembers how painful the procedure was a few years ago and prefers not to get it done again if she can avoid it She was referred back to Dr. Fregoso for further management and consideration for repeat CTS surgery We have not received any correspondence from Dr. Fregoso so far so am unclear as to whether she was seen or not at this time (10) Vitamin B12 deficiency: Code(s): E53.8 - Deficiency of other specified B group vitamins Category: Medical Plan: Continue Vitamin B12 1000 mcg QD (11) Vitamin D deficiency: Code(s): E55.9 - Vitamin D deficiency, unspecified Category: Medical Plan: Continue Vitamin D2 83292 units once a week (12) Insomnia: Code(s): G47.00 - Insomnia, unspecified Category: Medical Qualifiers: Insomnia type: unspecified Qualified Code(s): G47.00 - Insomnia, unspecified Plan: Sleep hygiene reinforced Continue Zolpidem 10 mg Q HS PRN (13) Anxiety: Code(s): F41.9 - Anxiety disorder, unspecified Category: Medical Plan: Continue Lorazepam 0.5 mg QD PRN (14) Depression: Comment: Recurrent MDD Code(s): F32.9 - Major depressive disorder, single episode, unspecified Category: Medical Qualifiers: Depression Type: major depressive disorder Major depression recurrence: recurrent Active/Remission status: currently active Major depression episode severity: unspecified Qualified Code(s): F33.9 - Major depressive disorder, recurrent, unspecified Plan: Continue Venlafaxine ER 150 mg QD, Latuda 40 mg Q HS and [place] ER 450 mg BID Follow up with psychiatry as scheduled (15) Obesity (BMI 30-39.9): Comment: She is actually morbidly obese with BMI of 41. Again stressed about losing weight, she is not able to do any active exercise. Trying to decrease her calories intake as much as she can, Code(s): E66.9 - Obesity, unspecified Category: Medical Plan: Reinforced diet/exercise as tolerated/lose weight Plan As requested, flu vaccine given to patient today Follow up in 4 months Orders: Orders Vitamin B12 and Folate 4 Months E53.8 - Deficiency of other specified B group vitamins, I80.209 - Phlebitis and thrombophlebitis of unspecified deep vessels of unspecified lower extremity Vitamin D 25-OH Total 4 Months E55.9 - Vitamin D deficiency, unspecified, I80.209 - Phlebitis and thrombophlebitis of unspecified deep vessels of unspecified lower extremity UA CC w/rflx Micro + Cult 4 Months I80.209 - Phlebitis and thrombophlebitis of unspecified deep vessels of unspecified lower extremity, R30.0 - Dysuria Influenza [id number] Immunization Today Z23 - Encounter for immunization Comprehensive [place]. Panel Fast 4 Months E78.00 - Pure hypercholesterolemia, unspecified, I80.209 - Phlebitis and thrombophlebitis of unspecified deep vessels of unspecified lower extremity Complete Blood Count Auto Diff 4 Months D64.9 - Anemia, unspecified, I80.209 - Phlebitis and thrombophlebitis of unspecified deep vessels of unspecified lower extremity Lipid Panel 4 Months E78.00 - Pure hypercholesterolemia, unspecified, I80.209 - Phlebitis and thrombophlebitis of unspecified deep vessels of unspecified lower extremity Thyroid Stimulating Hormone 4 Months E03.9 - Hypothyroidism, unspecified, I80.209 - Phlebitis and thrombophlebitis of unspecified deep vessels of unspecified lower extremity Free T4 (Free Thyroxine) 4 Months E03.9 - Hypothyroidism, unspecified, I80.209 - Phlebitis and thrombophlebitis of unspecified deep vessels of unspecified lower extremity Referrals Orthopedics Referral M25.461 - Effusion, right knee, M25.561 - Pain in right knee Medications: Refilled cyanocobalamin (vitamin B-12) 1,000 mcg PO DAILY 90 days 90 tabs 1RF ergocalciferol (vitamin D2) 1,250 mcg PO QWEEK 3 months 13 caps 3RF
[2024-09-03 11:09] VITALS: BP 118/76; PULSE 68; O2SAT 98; BMI 37.5
== END 2024-09-03 11:59 | disposition home or self-care (01) ==
PROVIDERS: PCP Internal Medicine; Visit Provider Internal Medicine
DX: M25.561 Pain in right knee (principal); I80.209 Phlebitis and thrombophlebitis of unspecified deep vessels of unspecified lower extremity; F33.9 Major depressive disorder, recurrent, unspecified; M25.461 Effusion, right knee; E78.00 Pure hypercholesterolemia, unspecified; R03.0 Elevated blood-pressure reading, without diagnosis of hypertension; J45.41 Moderate persistent asthma with (acute) exacerbation; G47.33 Obstructive sleep apnea (adult) (pediatric); M79.7 Fibromyalgia; G62.9 Polyneuropathy, unspecified; G56.01 Carpal tunnel syndrome, right upper limb; E53.8 Deficiency of other specified B group vitamins

== ENCOUNTER → 2024-09-03 10:49 | Outpatient (BNVA) | payer OTHER, SELFPAY | PROVIDERS: PCP Internal Medicine; Visit Provider Internal Medicine | DX: Z23 Encounter for immunization (principal); M25.561 Pain in right knee; M25.461 Effusion, right knee; E78.00 Pure hypercholesterolemia, unspecified; R03.0 Elevated blood-pressure reading, without diagnosis of hypertension; G47.33 Obstructive sleep apnea (adult) (pediatric); J45.41 Moderate persistent asthma with (acute) exacerbation; E53.8 Deficiency of other specified B group vitamins; E55.9 Vitamin D deficiency, unspecified; G47.00 Insomnia, unspecified; F41.9 Anxiety disorder, unspecified; F33.9 Major depressive disorder, recurrent, unspecified; E66.9 Obesity, unspecified | CPT/HCPCS: 90471; 90656; 96127; 99212 ==

== ENCOUNTER 2024-09-25 07:16 | Outpatient (REF) | payer OTHER, SELFPAY ==
[2024-09-25 08:23] LABS: Appearance Urine Clear; Color Urine Yellow; Glucose Urine UA Negative (Negative); Leukocyte Esterase Urine Trace (Negative); Nitrite Urine Negative (Negative); PH 5.5 (5.0-9.0); Specific Gravity - Urine 1.015 (1.005-1.025); UMIC TRIGGER UACC YES; Urine Blood Negative (Negative); Urine Ketones Negative (Negative); Urine Protein Negative (Neg-Trace)
[2024-09-25 08:26] LABS: Bacteria Urine None Seen (None Seen); Hyaline Casts Urine 0-2 /LPF (0-2); RBC Urine 0-2 /HPF (0-2); Squamous Epithelial Cell Urine 0-2 /HPF (0-2); WBC Urine 0-5 /HPF (0-5)
[2024-09-25 08:57] LABS: Blood Urea Nitrogen 11 mg/dL (9-16); Estimated Glomerular Filt Rate 55
== END 2024-09-25 07:17 | disposition home or self-care (01) ==
LOC: HO.LAB 07:16
PROVIDERS: PCP Internal Medicine; Visit Provider Nurse Practitioner Family
DX: R31.0 Gross hematuria (principal)
CPT/HCPCS: 36415; 81001; 82565; 84520

== ENCOUNTER 2024-09-27 10:20 | Outpatient (AMB) | payer OTHER, SELFPAY ==
--- NOTE | 2024-09-26 18:58 | MHC.OFFVIS ---
Intake Visit Reasons: cysto Intake Note: Patient is present for Cystoscopy Urology Medication: Antibiotic Allergy:NONE Blood Thinner:NATALY Lot:[id number] Exp:09/24/27 Blown Film Extrusion Operator Required: Yes Blown Film Extrusion Operator Services: Blown Film Extrusion Operator Present Blown Film Extrusion Operator Name: Dereck Victoria Information Interpreted: non-clinical & clinical Allergies No Known Allergies Allergy (Verified 09/27/24 11:05) HPI Comments Details: 09/27/24-- here for cystoscopy. Cystoscopy findings: Mild to moderate trabeculations, no suspicious bladder lesions visualized Review of chart CT imaging 08/09/2023 reviewed. Urinary tract within normal limits. Nato has CT urogram pending for next week. Telehealth follow-up with nurse practitioner to review results. Review of chart: 08/13/24--Nato is a pleasant 63-year-old Hungarian-speaking female patient of Dr. Greco who was accompanied by her family member at today's office visit. She has a past medical history of obesity, hypercholesteremia, obstructive sleep apnea, anxiety, insomnia, vitamin B12 deficiency, fibromyalgia, depression, neuropathy, DVT, asthma, and degenerative disc disease. She presents to the office today as a new patient for gross hematuria. In discussion with the patient today she reports noting episodes of gross hematuria over the last year. She reports having followed up with her PCP for ongoing hematuria and dysuria she has been experiencing at which time referral was made to Urology for further assessment evaluation. In office urinalysis results reviewed with the patient today no hematuria noted. PVR 0 mL. In review of patient's chart it appears urine cultures 05/13, 01/14, 04/13, and 06/13 noted no bacterial growth. When asked she denies any previous history of nicotine dependence and or workplace chemical exposure. She reports noting over the last 2 weeks to be having ongoing left-sided flank pain that radiates to her lower abdominal area. We discussed at length potential causes of gross hematuria as well as further workup to include CT urogram and in office cystoscopy. She currently denies any bothersome urinary issues however does report episodes of dysuria in the past. When asked she denies urinary urgency, urinary frequency, incontinence, nocturia, foul smelling urine, changes to urinary stream, flank pain, fever, and or chills. She is happy with her current voiding parameters. She otherwise offers no other issues or concerns at this time PFSH Medical History Insomnia Morbid obesity with BMI of 40.0-44.9, adult Pure hypercholesterolemia Exertional dyspnea Fatigue Cough Lumbar degenerative disc disease Phlegmasia cerulea dolens Obstructive sleep apnea COVID-19 Hyperthyroidism Anxiety Obstructive sleep apnea Condyloma acuminata Vitamin B12 deficiency Lung granuloma Phlegmasia cerulea dolens Chronic low back pain Vitamin D deficiency Obesity (BMI 30-39.9) Fibromyalgia Depression Neuropathy DVT (deep venous thrombosis) Asthma DDD (degenerative disc disease) Surgical History S/P laparoscopic appendectomy History of embolectomy Benign neoplasm of neck History of colonoscopy History of bilateral tubal ligation History of carpal tunnel release History of bilateral oophorectomy S/P IVC filter Family History Father Liver cirrhosis Cancer Mother Heart attack Coronary artery disease Asthma Diabetes mellitus Brother No problems noted. Sister No problems noted. Sister No problems noted. Sister No problems noted. Sister No problems noted. Sister No problems noted. Sister No problems noted. Sister No problems noted. Sister No problems noted. Sister No problems noted. Sister No problems noted. Sister No problems noted. Sister No problems noted. Sister No problems noted. Paternal Aunt Colon cancer Son Histiocytosis Son No problems noted. Son No problems noted. Social History Household Members: Children Housing: Apartment Do you presently have visiting nurse or other home services: Yes (GUEST RELATIONS RECEPTIONIST) Alcohol intake: former Patient Tobacco Use Status: Never used Tobacco e-Cigarette/Vaping Use: Never Used Second Hand Smoke Exposure: No Advance Directives Date on File: 08/15/23 service: No Current occupational status: disabled Current occupation: right hand Cognitive needs: Yes (cane) Hearing needs: No Vision needs: Yes Review of Systems Const All systems reviewed & are unremarkable except as noted in HPI and below Reports no additional complaints Eyes Reports no additional complaints ENT Reports no additional complaints Card Reports no additional complaints Resp Reports no additional complaints GI Reports no additional complaints Reports as per HPI Musc Reports no additional complaints Skin/Breast Reports system reviewed and no additional complaints, except as documented Neuro Reports no additional complaints Psych Reports no additional complaints Endo Reports no additional complaints Thony/Lymph Reports no additional complaints Aller/Immun Reports no additional complaints Office Procedures Cystoscopy Consent Discussed risk and benefit or proposed procedure with the patient. Information consent for procedure given to the patient. Discussed technical aspects, risks, benefits and alternatives in full. Addressed all of the patient's questions and concerns regarding the procedure. The patient demonstrated knowledge and understanding. They wish to proceed with this procedure. Preparation The patient was prepped in the usual manner. A research fellow was present and in the room. Genitalia was prepped with betadine solution in a sterile manner. Lidocaine Jelly 2% was placed into the urethra and 16Fr flexible Olympus cystoscope was inserted into the meatus after adequate lubrication. Procedure Time out per protocol performed. Bladder Inspection Bladder Inspection: The bladder was inspected in its entirety with utilization retroflexion displaying: Tumor(s): no suspicious bladder lesions visualized Trabeculation: Mild to Moderate Mucosal Erthema: NA Orifices: normal shape and position Urethra: normal Cystoscopy findings: Mild to moderate trabeculations, no suspicious bladder lesions visualized [id number] DISPOSABLE SCOPE URO-G FLEXIBLE SCOPE Procedure code (CPT) selection complete Office Meds lidocaine HCl 2 % mucosal jelly in applicator Performing Provider: Bryce Suresh MD [facility] Administered by: Meek Hackett LPN on 09/27/24 11:56 Dose Route Admin Location Dispensed Lot Number Expiration Date [facility] Contract Accountant 10 mL intra-urethral 10 mL naproxen 500 mg tablet Performing Provider: Bryce Suresh MD Performing [facility] Administered by: Meek Hackett LPN on 09/27/24 11:56 Dose Route Admin Location Dispensed Lot Number Expiration Date [place] Contract Accountant 500 mg PO 1 tab ciprofloxacin HCl 500 mg tablet Performing Provider: Bryce Suresh MD Performing [facility] Administered by: Meek Hackett LPN on 09/27/24 11:56 Dose Route Admin Location Dispensed Lot Number Expiration Date [place] Contract Accountant 500 mg PO 1 tab Results AMB Urinalysis, Automated UA Leukoctes 0 Porfirio/uL Last Edit by AMBREEN Summers on 09/27/24 11:23 UA Nitrite Negative Last Edit by Darlin Lugo [facility] on 09/27/24 11:23 UA Urobilinogen 0.2 mg/dL Last Edit [facility] on 09/27/24 11:23 UA Protein 15 mg/dL Last Edit by Darlin Lugo [facility] on 09/27/24 11:23 UA pH 6.0 Last Edit by Darlin Lugo [facility] on 09/27/24 11:23 UA Blood 10 Hector/uL Last Edit by Darlin Lugo [facility] on 09/27/24 11:23 UA Specific [place] 1.025 Last Edit by Darlin Lugo [facility] on 09/27/24 11:23 UA Ketone Negative Last Edit by Darlin Lugo [facility] on 09/27/24 11:23 UA Bilirubin 0 mg/dL Last Edit by Darlin Lugo [facility] on 09/27/24 11:23 UA Glucose 0 mg/dL Last Edit by Darlin Lugo [facility] on 09/27/24 11:23 Results Reviewed Results Reviewed: Laboratory Last Values Urine pH (Auto) 6.0 09/27/24 11:21 Specific [place] (Auto) 1.025 09/27/24 11:21 Urine Protein (Auto) 15 mg/dL 09/27/24 11:21 Glucose (UA)(Auto) 0 mg/dL 09/27/24 11:21 Urine Ketones (Auto) Negative 09/27/24 11:21 Urine Blood (Auto) 10 Hector/uL 09/27/24 11:21 Urine Nitrite (Auto) Negative 09/27/24 11:21 Urine Bilirubin (Auto) 0 mg/dL 09/27/24 11:21 Urine Urobilinogen (Auto) 0.2 mg/dL 09/27/24 11:21 Leukocyte Esterase (Auto) 0 Porfirio/uL 09/27/24 11:21 Date of Service: 08/09/23 CT ABDOMEN AND PELVIS WITH CONTRAST CLINICAL INFORMATION: Right upper quadrant pain COMPARISON: CT of 12/03/2016 and right upper quadrant ultrasound of 08/09/2023 TECHNIQUE: Multidetector volumetric images were obtained from the superior aspect of the liver through the pubic symphysis following administration 85 mL of Omnipaque 350 intravenous contrast. Sagittal and coronal reformatted images were obtained on the technologist's workstation. Oral contrast: No This CT examination was performed using dose optimization techniques as appropriate, variously including the following: *Automated exposure control *Adjustment of mA and/or kV according to patient size (this includes techniques or standardized protocols for targeted exams where dose is matched to indication/reason for exam; i.e. extremities or head) *Use of iterative reconstruction technique DLP: 956 mGy-cm FINDINGS: LUNG BASES: Calcified granuloma is evident at the left lung base. There are coronary artery calcifications. LIVER, GALLBLADDER, AND BILIARY TREE: The liver is normal in size, shape, and attenuation. No focal hepatic lesion or biliary ductal dilatation is present. The gallbladder wall is thickened and pericholecystic edema is evident, with the gallbladder wall measuring up to 5 mm. The calculi visualized on ultrasound are not visualized. PANCREAS: Unremarkable. SPLEEN: Unremarkable. ADRENAL GLANDS: Unremarkable. KIDNEYS AND URETERS: The kidneys are normal in size, shape, and attenuation. No hydronephrosis, hydroureter, or calculi seen. No perinephric stranding. BLADDER: Unremarkable. GASTROINTESTINAL TRACT: The small and large bowel are unremarkable. The appendix is unremarkable. ABDOMINAL WALL: No significant hernia is appreciated. LYMPH NODES: Normal. VASCULAR: There is an IVC filter. No thrombus is detected. PELVIC VISCERA: There are no adnexal masses. There is a small amount of free fluid in the cul-de-sac, greater than expected for age consistent with an intraperitoneal inflammatory process. OSSEOUS STRUCTURES: Unremarkable. IMPRESSION: 1. Distended gallbladder with associated wall thickening and edema. In conjunction with the sonographically detected calculi, the findings are compatible with acute cholecystitis. 2. Fluid in the cul-de-sac, presumably the sequela of the upper abdominal inflammatory process. 3. Left lung base calcified granuloma. 4. The above urgent findings were reported at the time of interpretation on 08/09/2023 at 2:[address] Penaloza. Assessment & Plan Assessment & Plan (1) Gross hematuria: Code(s): R31.0 - Gross hematuria Category: Medical (2) History of dysuria: Code(s): Z87.898 - Personal history of other specified conditions Category: Medical (3) Flank pain: Code(s): R10.9 - Unspecified abdominal pain Category: Medical Plan Cystoscopy findings: Mild to moderate trabeculations, no suspicious bladder lesions visualized Nato has CT urogram pending for next week. Telehealth follow-up with nurse practitioner to review results. Orders: Orders AMB Urinalysis Automated Today Z13.9 - Encounter for screening, unspecified AMB Cystoscopy Today R10.9 - Unspecified abdominal pain, R31.0 - Gross hematuria, Z87.898 - Personal history of other specified conditions Coding Level of Care Code Procedure Only Diagnoses Gross hematuria R31.0 History of dysuria Z87.898 Flank pain R10.9 CPT Codes Cystoscopy - CPT: 82414-[id number] ([id number])
== END 2024-09-27 12:12 | disposition home or self-care (01) ==
LOC: HO.HUSH 10:20
PROVIDERS: PCP Internal Medicine; Visit Provider Urology
DX: R10.9 Unspecified abdominal pain (principal); R31.0 Gross hematuria; Z87.898 Personal history of other specified conditions; Z13.9 Encounter for screening, unspecified
CPT/HCPCS: 52000

== ENCOUNTER → 2024-09-27 10:20 | Outpatient (BNVA) | payer OTHER, SELFPAY | PROVIDERS: PCP Internal Medicine; Visit Provider Urology | DX: R10.11 Right upper quadrant pain (principal); R31.0 Gross hematuria; Z87.898 Personal history of other specified conditions | CPT/HCPCS: 52000; 81003 ==

== ENCOUNTER 2024-10-03 08:23 | Outpatient (AMB) | payer OTHER, SELFPAY ==
--- NOTE | 2024-10-03 08:28 | MHC.OFFVIS ---
Vital Signs 10/03/24 08:48 Height 5 ft 5 in Weight 225 lb BMI 37.4 Intake Visit Reasons: New prob- Right knee pain/effusion Intake Note: Nato a 64 year old female who presents today for an evaluation of right knee. Patient reports intermittent knee pain located at the medial aspect of knee for about 2 months. She was seen at [facility] walk-in and was told having fluid in her knee. She followed up with her PCP and was told having arthritis. No previous tx. She is unsure if she finds relief with Tylenol and is unable to take Motrin due to other medical conditions. Automatic Washer Mechanic Required: Yes Automatic Washer Mechanic Services: Automatic Washer Mechanic Present Automatic Washer Mechanic Name: Nahun ID# [id number] Allergies No Known Allergies Allergy (Verified 10/03/24 08:39) Medication List - Last Reconciled 10/03/24 by Renea Jalloh PA-C acetaminophen 325 mg PO DAILY PRN albuterol sulfate 2.5 mg inhalation QID PRN albuterol sulfate 90 mcg/actuation (Ventolin HFA) 2 puffs inhalation Q6H PRN 30 days apixaban (Eliquis) 5 mg PO BID atorvastatin 80 mg PO DAILY 90 days [COMPRESSION STOCKINGS (pantyhose) As directed] cyanocobalamin (vitamin B-12) 1,000 mcg PO DAILY 90 days dorzolamide-timolol 22.3-6.8 mg/mL 1 drp ophthalmic (eye) DAILY ergocalciferol (vitamin D2) 1,250 mcg PO QWEEK 3 months Flovent HFA 220 mcg/actuation (fluticasone propionate) 2 puffs inhalation BID 30 days NS gabapentin 600 mg PO TID latanoprost 0.005% 1 drp ophthalmic (eye) BEDTIME lithium carbonate ER 450 mg PO BID lorazepam 0.5 mg PO QAM PRN lurasidone (Latuda) 40 mg PO BEDTIME omeprazole 20 mg PO DAILY PRN [rollator walker with seat As directed] terconazole 0.8% 1 appful vaginal BEDTIME 3 days tramadol 50 mg PO BID PRN 30 days venlafaxine ER 150 mg PO QPM zolpidem (Ambien) 10 mg PO BEDTIME HPI HPI New prob- Right knee pain/effusion: Details: 64-year-old female who presents to the office today with an calender operator helper for an evaluation of right knee pain for about 2 months. She has not had any knee injury in the past. She was seen at our walk-in clinic as well as her PCP for her knee. She currently states she has intermittent pain at the medial aspect of her right knee that is aggravated with sitting down and getting up from sitting. She has not had any treatment in the past. She is unsure if she finds relief with Tylenol and she is unable to take Motrin due to other medical conditions. She does not have a history of diabetes. [facility] Medical History Insomnia Morbid obesity with BMI of 40.0-44.9, adult Pure hypercholesterolemia Exertional dyspnea Fatigue Cough Lumbar degenerative disc disease Phlegmasia cerulea dolens Obstructive sleep apnea COVID-19 Hyperthyroidism Anxiety Obstructive sleep apnea Condyloma acuminata Vitamin B12 deficiency Lung granuloma Phlegmasia cerulea dolens Chronic low back pain Vitamin D deficiency Obesity (BMI 30-39.9) Fibromyalgia Depression Neuropathy DVT (deep venous thrombosis) Asthma DDD (degenerative disc disease) Surgical History S/P laparoscopic appendectomy History of embolectomy Benign neoplasm of neck History of colonoscopy History of bilateral tubal ligation History of carpal tunnel release History of bilateral oophorectomy S/P IVC filter Family History Father Liver cirrhosis Cancer Mother Heart attack Coronary artery disease Asthma Diabetes mellitus Brother No problems noted. Sister No problems noted. Sister No problems noted. Sister No problems noted. Sister No problems noted. Sister No problems noted. Sister No problems noted. Sister No problems noted. Sister No problems noted. Sister No problems noted. Sister No problems noted. Sister No problems noted. Sister No problems noted. Sister No problems noted. Paternal Aunt Colon cancer Son Histiocytosis Son No problems noted. Son No problems noted. Social History Household Members: Children Housing: Apartment Do you presently have visiting nurse or other home services: Yes (SUPERINTENDENT MENAGERIE) Alcohol intake: former Patient Tobacco Use Status: Never used Tobacco e-Cigarette/Vaping Use: Never Used Second Hand Smoke Exposure: No Advance Directives Date on File: 08/15/23 service: No Current occupational status: disabled Current occupation: right hand Cognitive needs: Yes (cane) Hearing needs: No Vision needs: Yes Review of Systems Const All systems reviewed & are unremarkable except as noted in HPI and below Physical Exam Vital Signs: BMI result Body Mass Index 37.4 Extrem Other: Right knee: Skin intact, no erythema or joint effusion. Tenderness along the medial and lateral joint line. Full ROM with crepitus. Negative Izzy?s. No ligamentous laxity. NVI. Office Procedures AMB Joint Injection/Aspiration Joint Injection/Aspiration Primary Site: right knee Prep: site was prepped using aseptic technique, ethochloride spray was applied and injection warnings given Injected: 80 mg of, DepoMedrol, with 8 mL of, 1% plain lidocaine and in the joint Approach Used: anterolateral Procedure: The patient tolerated the procedure well and there was some relief with the local anesthesia Coding 29203 - Glenohumeral/Tronchanteric Bursa/Intraarticular Procedure code (CPT) selection complete Results Reviewed Results Reviewed: xrays of the right knee obtained 08/31/24 IMPRESSION: Mild degenerative changes of the right knee. No acute fracture or dislocation. Assessment & Plan Assessment & Plan (1) Osteoarthritis of right knee: Code(s): M17.11 - Unilateral primary osteoarthritis, right knee Category: Medical Plan We discussed options today, which include steroid injection. The patient did consent to move forward with the right knee injection, which was tolerated well. I recommended rest, ice, and elevation and OTC anti-inflammatories as needed for discomfort. She was also referred to a course of physical therapy in the office today. If symptoms persist or worsens over the next 6-8 weeks, patient will contact the office, otherwise follow-up as needed. Orders: Orders PT Evaluation and Treatment Today M17.11 - Unilateral primary osteoarthritis, right knee Patient Instructions: Scribed for Renea Jalloh PA-C, by Jesus Garcia medical aides teacher, on 10/03/2024 at 8:45 AM EST.? I, Renea Jalloh PA-C, have personally reviewed and agree with the information entered by the scribe. Coding Level of Care Code Est Pt Level 3 (32385) Complex EM visit Add On G2211 Diagnoses Osteoarthritis of right knee M17.11 CPT Codes Coding - Joint 7: 91162 - Glenohumeral/Tronchanteric Bursa/Intraarticular ([id number])
[2024-10-03 08:48] VITALS: BMI 37.4
== END 2024-10-03 09:19 | disposition home or self-care (01) ==
PROVIDERS: PCP Internal Medicine; Visit Provider Physician Assistant
DX: M17.11 Unilateral primary osteoarthritis, right knee (principal)
CPT/HCPCS: 20610; 99213

== ENCOUNTER 2024-10-03 10:43 | Outpatient (REF) | payer OTHER, SELFPAY ==
[2024-10-03] MEDS: iohexoL 350 MG/ML 100 ML INFUS..BTL IV (11:44)
== END 2024-10-03 10:44 | disposition home or self-care (01) ==
LOC: HO.CT 10:43
PROVIDERS: PCP Internal Medicine; Visit Provider Nurse Practitioner Family
DX: R31.0 Gross hematuria (principal)
CPT/HCPCS: 20610; 74178; 99212; J1010; J2003; Q9967

== ENCOUNTER → 2024-10-03 10:45 | Outpatient (BNV) | payer OTHER, SELFPAY | PROVIDERS: PCP Internal Medicine; Visit Provider Radiology Diagnostic Radiology | DX: R31.0 Gross hematuria (principal) | CPT/HCPCS: 74178 ==

== ENCOUNTER 2024-10-29 10:12 | Outpatient (REF) | payer OTHER, SELFPAY ==
[2024-10-29 11:58] LABS: Appearance Urine Clear; Color Urine Yellow; Glucose Urine UA Negative (Negative); Leukocyte Esterase Urine Large (3+) (Negative); Nitrite Urine Negative (Negative); PH 5.5 (5.0-9.0); Specific Gravity - Urine <= 1.005 (1.005-1.025); UMIC TRIGGER UA YES; Urine Blood Negative (Negative); Urine Ketones Negative (Negative); Urine Protein Negative (Neg-Trace)
[2024-10-29 12:03] LABS: Bacteria Urine None Seen (None Seen); Hyaline Casts Urine 0-2 /LPF (0-2); RBC Urine 0-2 /HPF (0-2); Squamous Epithelial Cell Urine 0-2 /HPF (0-2); WBC Urine >50 /HPF (0-5)
--- OUTSIDE RECORDS SUMMARY | 2024-10-31 14:23 | XMS_ITS ---
Author Organization [facility] Address [address] [place] [address] [place] [address] Care Team Providers Care Scale Operator Name Role Phone Angus GUSTAFSON, Glynn Primary Care Provider Darin Gonzalez Unavailable [phone] REASON FOR VISIT Seen Sooner Encounters [facility] [address] [facility]/15/[facility] Darin Gastelum Plan Of Treatment No Information Progress Notes * BEEBobAngelaB:[birth year] (64 yo F)Acc No.[id number]:10/15/2024 Progress Notes Patient:?Nato GAMBOA Provider:?Darin Gastelum DPM :1960???Age:64 Y???Sex:Female D ate:10/15/2024 Address: [address] [place], [place] Pcp:Glynn Greco MD Subjective: * Chief Complaints: * ???1. Seen Sooner. * Medical History:? Objective: * Vitals:? Assessment: Plan: * Treatment: * Images: * The named appointment provid er may or may not be the originator of this progress note, and it is not deemed complete until electronically signed by the appointment provider. Sign off status: Pending * Provider:?Darin Gastelum DPM Date:?2023 Generated for Elke garrido/Neftali/eTransmitting on:?10/31/2024 02:23 PM EST
--- OUTSIDE RECORDS SUMMARY | 2024-10-31 14:23 | XMS_ITS ---
Author Organization [facility] Garett shira Santee Address [address] [place] [address] Care Team Providers Care Kinder Teacher Name Role Phone Denise Greco MDh Primary Care Provider Darin Gonzalez Unavailable [phone] Allergies No Known Allergies REASON FOR VISIT Foot pain Medications Medication SIG (Take, Route, Frequency, Duration) Notes Start Date End Date Status Arnuity Ellipta 100 MCG/ACT 1 puff Inhalation Once a day Not-Taking Amoxicillin-Pot Clavulanate 875-125 MG 1 tablet Orally every 12 hrs Not-Taking Chlorhexidine Not-Ta river oxyCODONE HCl 5 MG 1 tablet as needed Orally every 6 hrs Not-Taking LORazepam 2 MG 1 tablet at bedtime as needed Orally Once a day Not-Taking LORazepam 0.5 MG 1 tablet at bedtime as needed Orally Once a day Active Cologne Carbonate ER 450 MG 1 tablet at bedtime Orally Once a day Active Acetaminophen 500 MG 1 capsule as needed Orally every 6 hrs Active Gabapentin 600 MG 1 tablet Orally Once a day Active Albuterol Sulfate HFA 108 (90 Base) MCG/ACT 1 puff as needed Inhalation every 4 hrs Active Omeprazole 20 MG 1 capsule 30 minutes before morning meal Orally Once a day Active Lurasidone HCl 80 MG 1 tablet in the evening with food Orally Once a day Active Zolpidem Tartrate 10 MG 1 tablet at bedt ann-marie as needed Orally Once a day Active Vitamin D2 Active Venlafaxine HCl ER 150 MG 1 capsule with food Orally Once a day Active Vitamin B12 1000 MCG 1 tablet Orally Onc e a day Active Atorvastatin Calcium 80 MG 1 tablet Oral ly Once a day Active eliquis 5 mg Active traMADol HCl 50 MG 1 tablet as needed Orally Once a day Active Rocklatan 0.02-0.005 % 1 drop into affec qiana eye Ophthalmic Once a day Active Ketorolac Tromethamine 0.5 % 1 drop into affected eye as needed Ophthalmic Four times a day Active Benzonatate 200 MG 1 capsule as needed Orally Three times a day Active predniSONE 20 MG 1 tablet Orally Once a day Active Nitrofurantoin Monohyd Macro 100 MG 1 capsule with food Orally every 12 hrs Active Latanoprost 0.005 % 1 drop into affected eye in the evening Ophthalmic Once a day Active Terconazole Active Dorzolamide-Timolol Active Amoxicillin 500 MG 1 capsule Orally yusef ry 8 hrs Active Flovent HFA Active Social History Tobacco Use: Social History Observation Description Date Details (start date - stop date) Never Smoker NA - NA Tobacco Use/Smoking Question Answer Notes Are you a: nonsmoker Additional Findings: Tobacco Non-User Current no n-smoker Alcohol Screen Question Answer Notes Did you have a drink containing alcohol in the p ast year? No Points 0 Interpretation Negative Tobacco use other than smoking: Question Answer Notes Are you an other tobacco user? No Problems Problem Type SNOMED Code ICD Code Onset Dates Problem Status W/U Status Risk Notes Problem Osteoarthritis of midtarsal joint of left foot (1897604235608893 ) Osteoarthritis of midtarsal joint of left foot (M19.072) Active confirmed Problem Osteoarthritis of midtarsal joint of right foot (7873776430670400 ) Osteoarthritis of midtarsal joint of right foot (M19.071) Active confirmed Vital Signs Height 5 ft 2 in in 08/09/2024 Weight 227 lbs 08/09/2024 BMI 41.51 kg/m2 08/09/2024 Encounters Encounter Location Date Provider Diagnosis [facility] [place] [address] [address] 08/09/2024 Darin Oriana Pain in left foot M79.672 ; Pain in left ankle and joints of left foot M25.572 ; Bursitis of left foot M77.52 ; Osteoarthritis of midtarsal joint of left foot M19.072 ; Pain in right foot M79.671 ; Pain in right ankle and joints of right foot M25.571 ; Bursitis of right foot M77.51 and Osteoarthritis of midtarsal joint of right foot M19.071 Assessments Encounter Date Diagnosis (ICD Code) Assessment Notes Treatment Notes Treatment Clinical Notes Section Notes 08/09/2024 Pain in left foot (ICD-10 - M79.672) 08/09/2024 Pain in left ankle and joints of left foot (ICD-10 - M25.572) 08/09/2024 Bursitis of left foot (ICD-10 - M77.52) 08/09/2024 Osteoarthritis of midtarsal joint of left foot (ICD-10 - M19.072) 08/09/2024 Pain in right foot (ICD-10 - M79.671) 08/09/2024 Pain in right ankle and joints of right foot (ICD-10 - M25.571) 08/09/2024 Bursitis of right foot (ICD-10 - M77.51) 08/09/2024 Osteoarthritis of midtarsal joint of right foot (ICD-10 - M19.071) Plan Of Treatment Pending Test Test Name Order Date X ray : Foot, left 3V 08/09/2024 X ray : Foot, right 3V 08/09/2024 Next Appt Details Follow Up: prn, Reason: Progress Notes * Jarocho GAMBOAB:[birth year] (63 yo F)Acc No.[id number]:08/09/2024 Progress Notes Patient:?Nato Gamboa Provider:?Darin Gastelum DPM :1960???Age:63 Y???Sex:Female D ate:08/09/2024 [facility] Pcp:Glynn Greco MD Subjective: * Chief Complaints: * ???Foot pain * HPI: ???Foot Pain:?Nature:?aching , stiffness , swelling , throbbing.?Location:?Top , Midfoot, B/L.?Duration:?several months.?Course:?worse.?Treatments:?rest/alter normal daily activity , medication ( Prednisone, Diaz).? * ROS:?General/Constitutional:?Nausea?denies.?Vomiting?denies.?Hunger Thirst?denies.?Loss appetite?denies.?Chills?denies.?Fatigue?denies.?Fever?denies.?Night Sweats?denies.?Unexplained weight loss?denies.?Unexplained weight gain?denies.?HEENTM:?Dentures?denies.?Dizziness?admits.?Glasses/contacts?admits.?Retinopathy?de nies.?Blurred/double vision?admits.?TMJ?denies.?Discharge/drainage?denies.?Implants?denies.?Sore throat?denies.?Dental implants?denies.?Hard of hearing ?denies.?Difficulty chewing/swallowing/speaking?denies.?Nose bleeds?denies.?Sore mouth?denies.?Respiratory:?On Oxygen?denies.?Pneumonia/pleurisy?denies.?Bronchitis?denies.?Emphysema?denies.?C oughing?denies.?Cough blood?denies.?Shortness of breath?denies.?Wheezing?denies.?Cardiovascular:?Pacemaker?denies.?MVP?denies.?WPW?denies.?CHF?denies.?Heart attack?denies.?Septal defect?denies.?Rapid beat?denies.?Chest pain ?denies.?Atrial Fib.?denies.?Murmur/Palpitations?denies.?Gastrointestinal:?Hemorrhoids?denies.?Stomach/Abdominal pain?admits.?Dark blood stool?denies.?Irritable bowel ?denies.?Constipation?denies.?Diarrhea?denies.?Hematology:?Swelling?denies.?Clots?denies.?Varicose Veins?denies.?Bruising?admits, on anticoagulants.?Bleeding problem?admits, on anticoagulants.?Genitourinary:?Blood urine?denies.?Frequent/Painfu/urination/bladder control?denies.?Kidney stones?denies.?Infection (UTI)?denies.?Nephropathy?denies.?sex trans dis (STD)?denies.?Prostate?denies.?Musculoskeletal:?Hammertoes?denies.?Bunions?denies.?Back Pain?admits.?Muscle Cramps/ Resting?admits.?Muscle cramps / walking?admits.?Generalized aches and pains?denies.?Weakness?denies.?Integ.:?Hall?denies.?Scars?denies.?Corns/calluses?denies.?Ingrown nails?denies.?Painful nails?denies.?Open Sores?denies.?Rashes?denies.?Neurologic:?Difficulty sleeping?admits.?Brain disorder?denies.?Numbness?denies.?Balance trouble?denies.?Confusion?denies.?Fainting/blackouts?denies.?Tingling?denies.?Tr emors?denies.? * Medical History:? * Surgical History:?embolectom y S/P Laparoscopic appendectomy colonoscopy bilateral tubal ligation carpal tunnel release bilateral oopherectomy Benign neoplasm of neck S/P IVC Filter gall bladder tooth extraction * Hospitalization/Major Diagno stic Procedure:?No Hospitalization History. * Family History:?Mother: dece ased, asthma, coronary artery disease, diagnosed with Diabetic - NIDDM, Unspecified essential hypertension, Other specified conditions influencing health status, Family history of arthritis.?Father: , liver cirrhosis, diagnosed with Other specified conditions influencing health status.?Son(s): histiocytosis.?Paternal aunt: colon cancer.? * Social History:?Tobacco Use:?Tobacco Use/Smoking?Are you a:?nonsmoker ?Additional Findings: Tobacco Non-User?Current non-smoker ?Tobacco use other than smoking?Are you an other tobacco user??No ???Drugs/Alcohol:?Drugs?Have you used drugs other than those for medical reasons in the past 12 months??No ?Alcohol Screen?Did you have a drink containing alcohol in the past year??No ?Points?0 ?Interpretation?Negative ???Miscellaneous:?no Caffeine. ?Children: yes, 3. ?no Exercise. ?Marital status: . ?Occupation: disabled. * Medications:?TakingDorzolami de-Timolol Terconazole Flovent HFA Amoxicillin 500 MG Capsule 1 capsule Orally every 8 hrsBenzonatate 200 MG Capsule 1 capsule as needed Orally Three times a dayKetorolac Tromethamine 0.5 % Solution 1 drop into affected eye as needed Ophthalmic Four times a dayLatanoprost 0.005 % Solution 1 drop into affected eye in the evening Ophthalmic Once a dayNitrofurantoin Monohyd Macro 100 MG Capsule 1 capsule with food Orally every 12 hrspredniSONE 20 MG Tablet 1 tablet Orally Once a dayRocklatan 0.02-0.005 % Solution 1 drop into affected eye Ophthalmic Once a daytraMADol HCl 50 MG Tablet 1 tablet as needed Orally Once a dayAtorvastatin Calcium 80 MG Tablet 1 tablet Orally Once a dayVitamin B12 1000 MCG Tablet Extended Release 1 tablet Orally Once a dayeliquis 5 mg Tablet Lurasidone HCl 80 MG Tablet 1 tablet in the evening with food Orally Once a dayOmeprazole 20 MG Capsule Delayed Release 1 capsule 30 minutes before morning meal Orally Once a dayVenlafaxine HCl ER 150 MG Capsule Extended Release 24 Hour 1 capsule with food Orally Once a dayVitamin D2 Zolpidem Tartrate 10 MG Tablet 1 tablet at bedtime as needed Orally Once a dayAcetaminophen 500 MG Capsule 1 capsule as needed Orally every 6 hrsAlbuterol Sulfate HFA 108 (90 Base) MCG/ACT Aerosol Solution 1 puff as needed Inhalation every 4 hrsGabapentin 600 MG Tablet 1 tablet Orally Once a dayLithium Carbonate ER 450 MG Tablet Extended Release 1 tablet at bedtime Orally Once a dayLORazepam 0.5 MG Tablet 1 tablet at bedtime as needed Orally Once a dayTaking Dorzolamide-Timolol Taking Terconazole Taking Flovent HFA Taking Amoxicillin 500 MG Capsule 1 capsule Orally every 8 hrsTaking Benzonatate 200 MG Capsule 1 capsule as needed Orally Three times a dayTaking Ketorolac Tromethamine 0.5 % Solution 1 drop into affected eye as needed Ophthalmic Four times a dayTaking Latanoprost 0.005 % Solution 1 drop into affected eye in the evening Ophthalmic Once a dayTaking Nitrofurantoin Monohyd Macro 100 MG Capsule 1 capsule with food Orally every 12 hrsTaking predniSONE 20 MG Tablet 1 tablet Orally Once a dayTaking Rocklatan 0.02-0.005 % Solution 1 drop into affected eye Ophthalmic Once a dayTaking traMADol HCl 50 MG Tablet 1 tablet as needed Orally Once a dayTaking Atorvastatin Calcium 80 MG Tablet 1 tablet Orally Once a dayTaking Vitamin B12 1000 MCG Tablet Extended Release 1 tablet Orally Once a dayTaking eliquis 5 mg Tablet Taking Lurasidone HCl 80 MG Tablet 1 tablet in the evening with food Orally Once a dayTaking Omeprazole 20 MG Capsule Delayed Release 1 capsule 30 minutes before morning meal Orally Once a dayTaking Venlafaxine HCl ER 150 MG Capsule Extended Release 24 Hour 1 capsule with food Orally Once a dayTaking Vitamin D2 Taking Zolpidem Tartrate 10 MG Tablet 1 tablet at bedtime as needed Orally Once a dayTaking Acetaminophen 500 MG Capsule 1 capsule as needed Orally every 6 hrsTaking Albuterol Sulfate HFA 108 (90 Base) MCG/ACT Aerosol Solution 1 puff as needed Inhalation every 4 hrsTaking Gabapentin 600 MG Tablet 1 tablet Orally Once a dayTaking Cologne Carbonate ER 450 MG Tablet Extended Release 1 tablet at bedtime Orally Once a dayTaking LORazepam 0.5 MG Tablet 1 tablet at bedtime as needed Orally Once a dayNot-Taking/PRNAmoxicillin-Pot Clavulanate 875-125 MG Tablet 1 tablet Orally every 12 hrsArnuity Ellipta 100 MCG/ACT Aerosol Powder Breath Activated 1 puff Inhalation Once a dayChlorhexidine LORazepam 2 MG Tablet 1 tablet at bedtime as needed Orally Once a dayoxyCODONE HCl 5 MG Tablet 1 tablet as needed Orally every 6 hrsMedication List reviewed and reconciled with the patientNot-Taking/PRN Amoxicillin-Pot Clavulanate 875-125 MG Tablet 1 tablet Orally every 12 hrsNot-Taking/PRN Arnuity Ellipta 100 MCG/ACT Aerosol Powder Breath Activated 1 puff Inhalation Once a dayNot-Taking/PRN Chlorhexidine Not-Taking/PRN LORazepam 2 MG Tablet 1 tablet at bedtime as needed Orally Once a dayNot-Taking/PRN oxyCODONE HCl 5 MG Tablet 1 tablet as needed Orally every 6 hrsMedication List reviewed and reconciled with the patient * Allergies:?N.K.D.A.yes[Aller gies Verified] Objective: * Vitals:?Ht: 5 ft 2 in, Wt:22 7, BMI:41.51, Shoe size: 9, Ht-cm: 157.48 cm, Wt-k.97 kg. * Examination: ???Orthopedic: ?MUSCLE STRENGTH:?5/5 all groups in a symmetrical fashion , B/L.?FOOT MORPHOLOGY:?Pes Cavus structure, Prominent, painful 1st Met-Cuneiform joint with inflammation, B/L.?X-Rays - IMAGING REPORT: ?Clinical Indication(s):? Evaluate for Fracture, Evaluate Biomechanical Deformity.?Views:? 3 views of Foot, AP, LAT, LO, B/L.?Findings:?normal bone and soft tissue density consistent for patients age and sex, eburnation dorsal 1st MT/Cun. jt, dorsal degenerative changes of the tarsal joints.?Fracture:?Negative fractures identified.?Neurological: ?SENSORY:?Neurological exam reveals intact sensorium, pain sensation normal, vibration sensation intact, pinprick sensation is normal in the lower extremities, Pt denies, anesthesia, burning, paresthesia, tingling, B/L.?TINEL'S COMPRESSION:? Negative, Medial dorsal cutaneous nerve distribution, Intermediate dorsal cutaneous nerve distribution, Deep peroneal nerve distribution, B/L.?DEEP TENDON REFLEXES:?Achilles, 2/4, B/L.?General Examination: ?GENERAL APPEARANCE:?Reveals a pleasant, alert, well-nourished, well- developed, well hydrated individual, who demonstrates proper attention to hygiene/body habitus, and is in no acute distress, Pt serves as own?historian for office visit today.?ORIENTED:?person, place, and time.?Vascular: ?DP PULSES(B):?1/4 , LEFT , 2/4 , RIGHT.?PT PULSES(B):?2/4 , RIGHT , 1/4 , LEFT.?CAPILLARY FILL TIME:?immediate, all digits, B/L.?TROPHIC CONDITION-TEXTURE/ELASTICITY/TURGOR/HAIR GROWTH(B):?normal, B/L.?TEMPERTURE GRADIENT(C):?warm to cool, proximal to distal, B/L.?PIGMENTATION:?normal, B/L.?EDEMA(C):?absent, B/L.?Dermatologic: ?SKIN FINDINGS:?Skin exam reveals normal texture, elasticity, and turgor. There are no masses. The interspaces are clear.? Assessment: * Assessment: 1.?Pain in left ankle and neelima ints of left foot - M25.572?2.?Pain in left foot - M79.672 (Primary)?3.?Bursitis of left foot - M77.52?4.?Osteoarthritis of midtarsal joint of left foot - M19.072, Dx New problem, Prognosis Uncertain (4),Acute problem, Complicated w/ Multiple Tx Options(4)?5.?Pain in right foot - M79.671?6.?Pain in right ankle and joints of right foot - M25.571?7.?Bursitis of right foot - M77.51?8.?Osteoarthritis of midtarsal joint of right foot - M19.071, Dx New problem, Prognosis Uncertain (4),Acute problem, Complicated w/ Multiple Tx Options(4)? Plan: * Treatment: 2.?Pain in right foot?Imaging: X ray : Foot, right 3V * Procedure Codes:?25778 X-RAY EXAM OF LEFT FOOT 3V, Modifiers: 26 , [id number] X-RAY EXAM OF RIGHT FOOT 3V, Modifiers: 26 , RT * Preventive Medicine:? ??Counseling:?Discussion:?-04: Office or other outpatient visit for the evaluation and management of a new patient, which required a medically appropriate history and/or examination and MODERATE level of DECISION MAKING for: 1 OR MORE CHRONIC PROBLEM(S) THATS WORSENING, 2 STABLE CHRONIC PROBLEMS, A NEWLY DIAGNOSED PROBLEM WITH UNCERTAIN PROGNOSIS, AN ACUTE COMPLICATED INJURY WITH MULTIPLE TREATMENT OPTIONS, OR AN ACUTE PROBLEM WITH ACCOMPANYING SYSTEMIC SYMPTOMS, THAT POSE(S) A MODERATE RISK OF MORBIDITY. THIS CONDITION MAY ALSO INCLUDE RX DRUG MANAGEMENT, OR A DECISON FOR MINOR SURGERY. The visit on the day of the encounter encompassed interpreting the data and educating the patient as to the nature of their condition, treatment options available according to their individual PMH, meds, allergies, and overall health/living conditions, as well as any potential risks or complications that may occur from a failure to adhere to, and participate in, the recommended course of therapy. The discussion included a complete verbal, and/or written explanation of the examination results, any x-rays taken, the proposed diagnosis, and outline of the treatment plan. A schedule for future care needs was also explained. The patient verbalized an understanding of the instructions at this time and agreed to be an active participant in their treatment. If the patient should think of any questions or concerns after the visit, I have encouraged the patient to call the office.?Arthritis:?The patient was counseled on the various etiologies for their Arthritis including genetic, history of injury or trauma, abnormal foot biomechanics leading to excessive joint wear, and use/overuse. We discussed the various treatment options from no treatment, to topical analgesics such as Biofreeze gel, Aspercream, Voltaren gel, Lidoderm patches, CBD oils, THC creams, and Custom-compounded topical cream preparations to natural oral products such as Glucosamine Sulfate/Chondroitin/MSM/Collegen to analgesic Tylenol, to anti-inflammatory medications such as Ibuprofen/Naproxen, and the use of oral steroids if needed. Cardiac, Kidney, and GI issues were discussed RE: potential complications of oral anti-inflammatories. We discussed several other treatment options consisting of accom shoes, supportive innersoles, AFO bracing/support, cortisone injection therapy, and surgical resection of the arthritic joint(s) or fusion reconstruction if necessary. We discussed the advantages and disadvantages of conservative (vs) surgical treamtents including pain relief, improved function/activities of daily life, return to exercise to failure, expense, systemic complications, infection, [id number], prolongued postop course. Patient questions re: the various treatment options available, their successes and potential failures, and usp effects were discussed and the answers were verbally confirmed understood.?Orthotics:?I explained to the patient the benefits of OT use. I explained that orthoses are medically necessary to decrease the foot pain through proper mechanical control, support of their foot.?P.R.I.C.E.:?The patient was counseled on the use of P.R.I.C.E. and NSAIDS (if well tolerated) to aid in the recovery from their painful condition.?Podiatric Surgery Counseling:?Surgical procedures to treat the patients foot problem were discussed. We reviewed the risks of the procedure (described below) vs not having the procedure (persistent pain, deformity, risk for skin ulceration/infection, loss of toe). We discussed the potential procedure complications including, but not limited to: pain, swelling, bleeding, scarring, numbness, infection, delayed/non healing, floppy/unstable/shorthened toe, recurrence, failure of the procedure, overcorrection leading to plantarflexed/downward positioned toe, recurrence, need for further surgery, as well as the possibility for loss of the toe itself. We discussed the use of IV/Local anesthesia, and the usual post-op course for healing. No guarentees were given. The patient verbally indicated a full understanding of the above conversation, and any other of their questions were answered to their satisfaction.?Shoe Gear Counseling:?The patient and I reviewed the types of shoes they should be wearing. My recommendation included obtaining a well-fitted shoe with a good supportive, non-foldable nor twistable sole, plenty of toe/room for the forefoot, and proper arch support. Based on todays examination, I recommended the patient look for new shoes, by having their feet professionally measured. We discussed that generally the best time of the day for a shoe fitting is the afternoon. Different shoes types and brands to best match the patients occupation and vocation were discussed. Specific brand selection will be up to the patient, their individual foot condition/deformities, and fit. The patient and I reviewed the standard new shoe break in period by wearing them for a few hours a day while checking for redness or sores as wear time is increased. The patient verbally confirmed to understanding the information discussed.? * Follow Up:?prn * Images: * Sign off status: Completed true * Provider:?Darin Gastelum DPM Date:?2023 Generated for Elke garrido/Neftali/Cierraitting on:?10/31/2024 02:23 PM EST History and Physical Notes * HPI (History of Present Illness) Category Sub-Category Detail Notes Category Not es Foot Pain Nature: aching , stiffness , swellin g , throbbing Location: Top , Midfoot, B/L Duration: several months Course: worse Treatments: rest/alter normal da christian activity , medication ( Prednisone, Diaz) Examination Category Sub-Category Detail Notes Category Not es Neurological SENSORY: Neurological exa m reveals intact sensorium, pain sensation normal, vibration sensation intact, pinprick sensation is normal in the lower extremities, Pt denies, anesthesia, burning, paresthesia, tingling, B/L TINEL'S COMPRESSION: Negative, Medial do rsal cutaneous nerve distribution, Intermediate dorsal cutaneous nerve distribution, Deep peroneal nerve distribution, B/L DEEP TENDON REFLEXES: Achilles, 2/4, B/L Dermatologic SKIN FINDINGS: Skin exam reveal s normal texture, elasticity, and turgor. There are no masses. The interspaces are clear Orthopedic FOOT MORPHOLOGY: Pes Cavus struc ture, Prominent, painful 1st Met-Cuneiform joint with inflammation, B/L MUSCLE STRENGTH: 5/5 all groups in a symmetrical fashion , B/L General Examination GENERAL APPEARANCE: Reveals a pleasant, alert, well- nourished, well-developed, well hydrated individual, who demonstrates proper attention to hygiene/body habitus, and is in no acute distress, Pt serves as own historian for office visit today ORIENTED: person, place, and t ann-marie Vascular DP PULSES(B): 1/4 , LEFT , 2/4 , RIGHT PT PULSES(B): 2/4 , RIGHT , 1/4 , LEFT CAPILLARY FILL TIME: immediate, all digi ts, B/L TEMPERTURE GRADIENT(C): warm to cool, pr oximal to distal, B/L TROPHIC CONDITION-TEXTURE/ELASTICITY/TURGOR/HAIR GROWTH(B): normal, B/L EDEMA(C): absent, B/L PIGMENTATION: normal, B/L X-Rays - IMAGING REPORT Findings: normal b one and soft tissue density consistent for patients age and sex, eburnation dorsal 1st MT/Cun. jt, dorsal degenerative changes of the tarsal joints Fracture: Negative fractures i dentified Views: 3 views of Foot, AP, LAT, LO, B/L Clinical Indication(s): Evaluate for Fra cture, Evaluate Biomechanical Deformity
--- OUTSIDE RECORDS SUMMARY | 2024-10-31 14:23 | XMS_ITS ---
Author Organization [facility] Address [address] [place] [address] Care Team Providers Care Gradall Operator Name Role Phone Angus GUSTAFSON, [place] Primary Care Provider Unava Darin Cruz Unavailable [phone] REASON FOR VISIT PCP Notes & TOWEL SORTER PP[facility] Entered Encounters Encounter Location Date Provider Diagnosis [facility] [address] [place] [address] 08/07/2024 Darin Gastelum Plan Of Treatment No Information Progress Notes * Jarocho GAMBOAB:[birth year] 56 (63 yo F)Acc No.[id number]:08/07/2024 Patient:?Nato Gamboa :1960???Age:63 Y???Sex:Female Address: [place], [address] * true * Date:? Generated for Herminioi hema/Neftali/eTransmitting on:?10/31/2024 02:23 PM EST
--- OUTSIDE RECORDS SUMMARY | 2024-10-31 14:24 | XMS_ITS | Data Portability ---
Author Organization [facility] abe[facility] PAIN OFFICE Address 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 She is here for a follow up after a ??trial of Lumbar epidural steroid injections under fluroscopic guidance . She reports good pain relief for 3 months. Her pain is slowly coming back. She states she has lower abdominal pain now and that is her worse pain today??. I spoke with Dr. Renee, Her PCP and she will follow up with her draw end hand . She states she had a colonoscopy a few years back which was within normal limits. She can return for a repeat injection after?? seeing the draw end hand. [email or web address] Not available 04/05/2013 10:19:04 12/06/2013 12/06/2013 Nato Goodman is a 53 year old woman with right hip pain. On exam ,she has tenderness in the right trochanteric bursal region . Trial of ??right trochanteric bursal steroid injections under fluroscopic guidance was recommended. The risks and benefits of the procedure?? were discussed in detail. She wishes to proceed. An appointment has been booked for the same. She needs a emergency medical technician/driver on the day of the procedure. She is on coumadin. I have discussed the same with Dr. Renee and she can stop coumadin for 5 days prior to the procedure. She will have INR checked at Dr. Renee's and fax us the results. I have prescribed lidoderm patches for her low back pain. [email or web address] Not available 12/07/2013 09:22:05 12/11/2013 12/11/2013 Nato Goodman is a 53 year old woman with right hip pain. On exam ,she has tenderness in the right trochanteric bursal region . She is here for a trial of ??right trochanteric bursal steroid injections under fluroscopic guidance?? The risks and benefits of the procedure?? were discussed in detail. She wishes to proceed. She has stopped her coumadin. Her INR is 1.2 today. She was advised to restart her coumadin today. She will call Dr. Renee's office for dosing of the coumadin tonight. [email or web address] Not available 12/11/2013 10:58:50 12/27/2016 12/27/2016 Nato Goodman is a 56 year old woman with low back pain radiating into the left lower extremity. On exam ,she has a positive left straight leg raising test. MRI Lumbar spine shows at L5-S1 , there is a mild disc bulge assymetric to the left resulting in mild to moderate left neural foraminal stenosis . Repeat Lumbar epidural steroid injections under fluoroscopic guidance was recommended. The risks and benefits of the procedure were discussed in detail. She wishes to proceed. An appointment has been booked for the same. She needs a emergency medical technician/driver on the day of the procedure. She is on coumadin. She can stop coumadin for 5 days prior to the procedure per her PCP. Her INR needs to be 1.1 or less on the day of the procedure to proceed. She will have it checked at [facility] and fax us the results. [email or web address] Not available 12/27/2016 14:28:14 01/04/2017 01/04/2017 Nato Goodman is a 56 year old woman with low back pain radiating into the left lower extremity. On exam ,she has a positive left straight leg raising test. MRI Lumbar spine shows at L5-S1 , there is a mild disc bulge asymmetric to the left resulting in mild to moderate left neural foraminal stenosis . She is here for a repeat Lumbar epidural steroid injections under fluoroscopic guidance . The risks and benefits of the procedure were discussed in detail. She wishes to proceed. She can restart coumadin tonight and follow dosing per PCP [email or web address] Not available 01/05/2017 14:25:45 Plan of Treatment Reminders Order Date Submit Date Provider Last Modified By Organization Details Last Modified Time Details Appointments None recorded. Lab INR, blood - Patient will be coming in for PT/INR stat on 01/04. Please fax results to [phone] . Thanks. 2016 017 [facility] (Lab), [address], [place], [address], 7 17:12:59 Referral None recorded. Procedures None recorded. Surgeries None recorded. Imaging None recorded. Medication Orders lidocaine 5 % topical patch 2013 014 [id number], [address] [facility], [place], [address], 7 08:58:28 Patient TargetsNo targets recorded. Patient Instructions Encounter Date Encounter Id Patient Instructions Last Modified By Organization Details Last Modified Time 04/04/2013 [id number] She was advised against bed rest lasting longer than four days and to continue activities as tolerated. [email or web address] Not available 04/05/2013 10:16:09 12/06/2013 [id number] She was advised against bed rest lasting longer than four days and to continue activities as tolerated. [email or web address] Not available 12/07/2013 09:19:05 12/11/2013 [id number] She was advised against bed rest lasting longer than four days and to continue activities as tolerated. [email or web address] Not available 12/11/2013 10:55:58 12/27/2016 [id number] She was advised to continue with activities as tolerated. [email or web address] Not available 12/27/2016 14:29:02 01/04/2017 [id number] She was advised to continue with activities as tolerated. [email or web address] Not available 01/05/2017 14:22:12 Reason for Referral None Reported. Results Created Date Observation Date Name Description Value Unit Range Abnormal Flag Note LastModifiedBy Organization Detail LastModifiedTime Result Notes None recorded. Problems Name Problem SNOMED Code Status Onset Date Resolution Date Notes Provider Name and Address Organization Details Recorded Time Spinal stenosis of lumbar region [id number] Riana heard MD [address] [place] [address] , [address], [facility] [place], [address] [facility] [place] [facility] 4 10:58:50 Enthesopathy of hip region [id number] Riana heard, MD [address] , [address], [place], [address], [place] [facility] 4 10:58:50 Lumbosacral radiculitis [id number] Active Sepideh heard MD [address] , [address], [place], [address], [place] [facility] 4 10:58:50 Pseudoclaudi cation syndrome Completed 12/06/2013 Sepideh heard MD [address] , [address], [place], [address], [place] [facility] 4 15:39:47 Problem Notes None recorded. Procedures Surgical History Date Name Laterality Status Provider Name and Address Organization Details Recorded Time 01/04/20 17 Lumbar Epidural steroid injection under fluoroscopic guidance completed Sepideh Kuo MD [address] , [address], [facility] [place], [address], [place] [facility] 01/05/2017 14:24:15 12/11/19 14 Greater Trochanteric Bursa Steroid Injection completed Sepideh Kuo MD [address] , [address], [place], [address], [place] [facility] 12/11/2013 10:58:50 12/04/19 13 Lumbar Epidural steroid injection under fluoroscopic guidance completed Sepideh Kuo MD [address] , [address], [place], [address], [place] [facility] 12/05/2012 15:51:55 08/21/20 12 Lumbar Epidural steroid injection under fluoroscopic guidance completed Sepideh Kuo MD [address] , [address], [place], [address], [place] [facility] 08/23/2012 08:38:37 Carpal tunnel release completed Bettina Zapata [place] - [facility] 12/27/2016 09:01:07 Other completed Bettina Zapata [place] - [facility] 12/27/2016 09:20:46 Other completed Sepideh Kuo MD [address] , [address], [place], [address], [facility] - Pain Management 08/10/2012 14:27:17 Other completed Sepideh Kuo MD [address] [facility] , [address], [facility], [address], [facility] - Pain Management 08/10/2012 14:27:17 Arthroscopic Surgery completed Bettina Zapata [place] - [facility] 12/04/2012 09:39:02 Other completed Bettina Zapata [place] - [facility] 08/10/2012 13:44:34 Imaging Results None recorded. Procedure Notes None recorded. Medical Equipment None Reported. Allergies No known drug allergies Medications Name Sig Start Date Stop Date Status Note LastModified by Organization Details LastModified Time b-12 1000mcg pr tb 60 hm TAKE 1 TABLET EVERY DAY active Not Available Not Available No t Available cyclobenz aprine 10 mg tablet 1 tab at bedtime active Not Available Not Available No t Available atorvasta tin 40 mg tablet TAKE 1 TABLET BY MOUTH EVERY DAY active Not Available Not Available No t Available cyanocoba altaf (vit B-12) ER 1,000 mcg tablet,ex tended release TAKE 1 TABLET EVERY DAY active Not Available Not Available No t Available albuterol sulfate 0.63 mg/3 mL solution for nebulizat ion updraft as needed active Not Available Not Available No t Available prednison e 10 mg tablet TAKE 4 TABS X 3 DAYS, THEN 3 TABLETS X 3 DAYS, THEN 2 TABLETS X 3 DAYS, THEN 1 TABLET X 3 DAYS active Not Available Not Available No t Available venlafaxi ne ER 75 mg capsule,e xtended release 24 hr TAKE 1 CAPSULE BY MOUTH EVERY MORNING active Not Available Not Available No t Available gabapenti n 600 mg tablet TAKE 1 TABLET THREE TIMES DAILY active Not Available Not Available No t Available albuterol sulfate 2.5 mg/3 mL (0.083 %) solution for nebulizat ion INHALE 3 ML CONTINUO US NEBULIZA TION 4 TIMES A DAY NEEDED FOR SHORTNES S OF BREATH OR WHEEZING active Not Available Not Available No t Available prednison e 20 mg tablet TAKE 2 TABLETS BY MOUTH DAILY FOR 2 DAYS, THEN 1 TABLET DAILY FOR 3 DAYS, THEN 1/2 TAB FOR 2 DAYS active Not Available Not Available No t Available gabapenti n 400 mg capsule Take 1 capsule twice a day by oral route. active Not Available Not Available No t Available venlafaxi ne ER 150 mg capsule,e xtended release 24 hr TAKE 1 CAPSULE BY MOUTH EVERY MORNING active Not Available Not Available No t Available tramadol 50 mg tablet TOME INGRIS TABLETA POR V A ORAL DOS VECES AL D A CUANDO SEA NECESARI O FOR PAIN active Not Available Not Available No t Available warfarin 3 mg tablet TOME 3 O 4 TABLETAS POR VIA ORAL TODOS LOS CRAFT active Not Available Not Available No t Available levothyro xine 75 mcg tablet TOME INGRIS TABLETA POR VIA ORAL TODOS LOS CRAFT 12/27 completed Not Available Not Available Not Available oxycodone -acetamin ophen 5 mg-325 mg tablet TOME INGRIS O DOS TABLETAS POR VIA ORAL CADA SEIS HORAS CUANDO SEA NECESARI O 12/27 completed Not Available Not Available Not Available amoxicill in 875 mg tablet TAKE 1 TABLET BY MOUTH TWICE DAILY FOR 10 DAYS active Not Available Not Available No t Available amitripty line 25 mg tablet TAKE 1 TABLET AT BEDTIME active Not Available Not Available No t Available lorazepam 0.5 mg tablet TAKE 1 TABLET BY MOUTH EVERY MORNING active Not Available Not Available No t Available benzonata te 100 mg capsule TOME 1 C PSULA POR V A ORAL DOS VECES AL D A CUANDO SEA NECESARI O active Not Available Not Available No t Available doxycycli ne monohydra te 100 mg capsule TOME 1 C PSULA POR V A ORAL DOS VECES AL D A POR 10 D active Not Available Not Available No t Available cyanocoba altaf (vit B-12) 1,000 mcg/mL injection solution INJECT 1 ML INTRAMUS CULARLY EVERY MONTH 12/27 completed Not Available Not Available Not Available lidocaine 5 % topical patch APPLY 1 PATCH BY TRANSDER MAL ROUTE ONCE DAILY (MAY WEAR UP TO 12HOURS. ) 12/27 completed PA approved . Pt and pharmacy notified Not Available Not Available Not Available warfarin 5 mg tablet TAKE 2 TABLETS BY MOUTH DAILY DIRECTED active Not Available Not Available No t Available gabapenti n 300 mg capsule Take 1 capsule twice a day by oral route. 12/27 completed Not Available Not Available Not Available zolpidem 10 mg tablet TAKE 1 TABLET BY MOUTH AT BEDTIME active Not Available Not Available No t Available methylpre dnisolone 4 mg tablets in a dose pack TAKE 6 TABLETS ON DAY 1 DIRECTED ON PACKAGE AND DECREASE BY 1 TAB EACH DAY FOR A TOTAL OF 6 DAYS 12/27 completed Not Available Not Available Not Available albuterol sulfate HFA 90 mcg/actua tion aerosol inhaler Inhale 2 puffs every 4 hours by inhalati on route. active as needed Not Available Not Available Not Available ondansetr on 4 mg disintegr ating tablet DISSOLVE 1 TABLET BY MOUTH EVERY 8 HOURS NEEDED FOR NAUSEA/V OMITING POR 10 D active Not Available Not Available No t Available amoxicill in 875 mg-potass ium clavulana te 125 mg tablet TOME INGRIS TABLETA DOS VECES AL D A POR 10 D active Not Available Not Available No t Available oxycodone 5 mg tablet active Not Available Not Available Not Available escitalop natasha 10 mg tablet TAKE 1 TABLET BY MOUTH EVERY MORNING active Not Available Not Available No t Available escitalop natasha 20 mg tablet TAKE 1 TABLET BY MOUTH EVERY MORNING active Not Available Not Available No t Available duloxetin e 60 mg capsule,d elayed release TAKE 1 CAPSULE EVERY DAY active Not Available Not Available No t Available melatonin 10 mg at bedtime active Not Available Not Available No t Available oxycodone 2 tabs as needed 12/27 completed Not Available Not Available Not Available Effexor XR at bedtime 12/27 completed Not Available Not Available Not Available zolpidem 1 tab at bedtime 12/27 completed Not Available Not Available Not Available cholecalc iferol (vitamin D3) 1,250 mcg (50,000 unit) capsule TAKE 1 CAPSULE BY MOUTH ONCE A WEEK active Not Available Not Available No t Available Suprep Bowel Prep Kit 17.5 gram-3.13 gram-1.6 gram oral solution TAKE DIRECTED active Not Available Not Available No t Available Vitals Date Recorded Heart rate Oxygen saturation Oxygen saturation in Arterial blood by Pulse oximetry Systolic blood pressure Diastolic blood pressure Systolic blood pressure Diastolic blood pressure Provider Name and Address Organization Details Last Updated DateTime 3 73 /min 99 % 99 % 164 mm[Hg] 104 mm[Hg] 150 mm[Hg] 90 mm[Hg] Bettina Zapata [place] [facility] 3 10:11:32 Date Recorded Body height Body weight Body mass index (BMI) Heart rate Oxygen saturation Oxygen saturation in Arterial blood by Pulse oximetry Systolic blood pressure Diastolic blood pressure Provider Name and Address Organization Details Last Updated DateTime 4 162.56 cm 884912. 2451 g 39.5 kg/m2 56 /min 100 % 100 % 158 mm[Hg] 59 mm[Hg] Bettina Avendañoer JAC[facility] - Pain Management 4 15:20:11 Date Recorded Heart rate Oxygen saturation Oxygen saturation in Arterial blood by Pulse oximetry Systolic blood pressure Diastolic blood pressure Provider Name and Address Organization Details Last Updated DateTime 4 55 /min 99 % 99 % 157 mm[Hg] 956 mm[Hg] Bettina Avendañoer [facility] - [facility] 4 09:31:38 Date Recorded Body height Heart rate Oxygen saturation Oxygen saturation in Arterial blood by Pulse oximetry Systolic blood pressure Diastolic blood pressure Provider Name and Address Organization Details Last Updated DateTime 7 160.02 cm 59 /min 98 % 98 % 167 mm[Hg] 64 mm[Hg] Bettina Avendañoer [facility] - [facility] 7 08:56:22 Date Recorded Body height Heart rate Oxygen saturation Oxygen saturation in Arterial blood by Pulse oximetry Systolic blood pressure Diastolic blood pressure Provider Name and Address Organization Details Last Updated DateTime 7 160.02 cm 61 /min 99 % 99 % 155 mm[Hg] 80 mm[Hg] Bettina Zapata [place] - [facility] 7 15:08:38 Social History Question Answer Notes LastModified by Organizat ion Details LastModified Time Tobacco Smoking Status Never Smoker Not Available [facility] 09/05/2020 03:16:10 What Is Your Level Of Alcohol Consumption? None [id number] Information not available 09/05/2020 Are You Currently Employed? No [id number] Information not available 09/05/2020 Which Illicit Or Recreational Drugs Have You Used? 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 With Others And Child Information not available 08/10/2012 GED Yes Information no t available 08/10/2012 Marital Status [email or web address] Informatio n not available 08/10/2012 Sex: Unknown Functional Status None recorded. Mental Status None recorded. Family History Nothing Reported. Medical History Condition Response Anxiety Disorder Y Neuropathy/Neuralgia Y Headache Y Arthritis Y Hyperthyroidism Y Depression Y Asthma Y Gynecological HistoryNo gynecological history recorded. Obstetrics History GPAL:G 0 P 0 0 0 0 Past Encounters Encounter ID Performer Location Encounter Start Date Encounter Closed Date Diagnosis/Indication Diagnosis SNOMED-CT Code Diagnosis ICD10 Code [id number] Sepideh Kuo MD PAIN OFFICE [address] [facility] [place] [address] 08/10/2012 13:05:06 08/10/2012 15:37:45 [id number] Sepideh Kuo MD [facility] [address] [facility] [place] [address] 08/21/2012 14:40:55 08/21/2012 15:48:27 [id number] Sepideh Kuo MD PAIN OFFICE [address] [facility] [place] [address] 09/21/2012 14:38:42 09/21/2012 14:50:30 [id number] Sepideh Kuo MD [facility] [address] [facility] [place] [address] 12/04/2012 14:43:16 12/04/2012 15:30:05 [id number] Sepideh Kuo MD [facility] [address] [facility] [place] [address] 04/04/2013 09:50:29 04/04/2013 15:31:36 [id number] [facility] [address] [facility] [place] [address] 12/06/2013 14:21:13 12/07/2013 09:23:01 Enthesopathy of hip region 46022292 Lumbosacra l radiculitis 53028651 Spinal charanjit nosis of lumbar region 24559679 [id number] [facility] [address] [facility] [place] [address] 12/11/2013 09:14:36 12/11/2013 10:59:34 Spinal stenosis of lumbar region 74059149 Enthesopat hy of hip region 54018947 Lumbosacra l radiculitis 94172982 [id number] [facility] [address] [facility] [place] [address] 12/27/2016 08:36:45 12/27/2016 14:33:08 Lumbosacral radiculitis 30411664 M54.17 Displaceme nt of lumbar intervertebral disc without myelopathy 00441641 M51.26 Lumbosacra 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 44065493 M47.817 Spinal charanjit nosis of lumbar region 62516618 M48.06 Long-term drug therapy 041730963 Z79.02 [id number] Seipdeh Kuo MD PAIN OFFICE [address] [place] [address] 01/04/2017 14:54:03 01/06/2017 08:36:22 Lumbosacral radiculitis 24794321 M54.17 Displaceme nt of lumbar intervertebral disc without myelopathy 73251673 M51.26 Lumbosacra 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 46817459 M47.817 Spinal charanjit nosis of lumbar region 71818474 M48.06 Long-term drug therapy 312006428 Z79.02 Health Concerns Section Related Observation LastModified by Organization Detai ls LastModified Time None Recorded Concern Status LastModified by Organization Details LastModified Time None Recorded Advance Directives Directive None Recorded Payers Encounter Date Sequence Insurance Name Policy Number Policy Smart Covered Member ID Smart Member ID Guarantor Name 04/04/2013 1 [place] [facility] Nato Goodman [id number] Nato Goodman 12/06/2013 1 [place] [facility] Nato Goodman [id number] Nato Goodman 12/11/2013 1 [place] [facility] Nato Goodman [id number] Nato Goodman 12/27/[address] [facility] (MEDICAID HMO) [id number] Nato Goodman [id number] Nato Goodman 01/04/[address] [facility] (MEDICAID HMO) [id number] Nato Goodman [id number] Nato Goodman Notes Date Note Type Note Provider Name and Address Organization Details Recorded Time 04/04/2013 text/html She is here for a follow up after a lumbar epidural steroid injection under fluroscopic guidance. She reports 80% pain relief after the injection. She is complaining of abdominal pain which is new. The pain is a constant aching pain in the lower abdomen . She reports no fevers or night time pain. She states she has good appetite, no bladder or bowel issues. She has seen her gynaecologist and had an ultrasound . She states the ultrasound is within normal limits. She is looking after her grand daughter who is 2 years old. Sepideh Kuo MD [address] [facility] , [address], [place], [address], [facility] - Pain Management 04/05/2013 14:55:52 12/06/2013 text/html She is here for a follow up. She has been doing well since her last epidural steroid injection until a few weeks ago when she started having right hip pain. She describes the pain as a sharp stabbing pain in the lateral aspect of her right hip and she has a difficult time lying down on the right side. She also has low back pain. She has no history of weakness, bladder or bowel incontinence. Sepideh Kuo MD [address] [facility] , [address], [place], [address], [place] - [facility] 12/12/2013 13:30:10 12/11/2013 text/html She is here for a trial of right trochanteric bursal injection under lfuorscopic guidance. She has stopped her coumadin. INR is 1.2 this morning. Sepideh Kuo MD [address] [facility] , [address], [place], [address], [place] - [facility] 12/12/2013 13:32:15 12/27/2016 text/html Nato Goodman is a 56 year old woman with complaints of low back pain radiating into left lower extremity. She has been having low back pain on and off for may years and had an exacerbation of her pain recently. She describes the pain as a sharp stabbing pain in her low back and radiates into her left lower extremity with numbness and tingling in her left foot. She has had lumbar epdiural steroid injection in the past with good pain benefit. MRI Lumbar spine done in 2013 shows at L5-S1 , there is a mild disc bulge assymetric to the left resulting in mild to moderate left neural foraminal stenosis . Recent X-ray shows levoscoliosis with multilevel degenerative disc disease. She states she uses a walker and a motorized scooter for grocery shopping. Sepideh Kuo MD [address] [facility] [facility] , [address], [place], [address], [facility] Pain Management 12/31/2016 12:00:00 01/04/2017 text/html She is here for a lumbar epidural steroid injection under fluoroscopic guidance. She has stopped coumadin for 5 days and her INR is 1.0 this morning. Sepideh Kuo MD [address] [facility] [facility] , [address], [place], [address], [facility] Pain Management 01/13/2017 16:01:57 OBGyn Episode No OBEpisode recorded.
--- OUTSIDE RECORDS SUMMARY | 2024-10-31 14:24 | XMS_ITS | Patient Health Record ---
[facility] Address [address] [facility] [place] [address] Care Team Providers Care Director Of Sales And Marketing Name Role Phone Denise Greco MDh Primary Care Provider Darin Gonzalez Unavailable [phone] Allergies No Known Allergies Reason For Referral No Information Medications Medication SIG (Take, Route, Frequency, Duration) Notes Start Date End Date Status Ketorolac Tromethamine 0.5 % 1 drop into affected eye as needed Ophthalmic Four times a day Active Benzonatate 200 MG 1 capsule as needed Orally Three times a day Active Terconazole Active LORazepam 0.5 MG 1 tablet at bedtime as needed Orally Once a day Active Dorzolamide-Timolol Active What Cheer Carbonate ER 450 MG 1 tablet at bedtime Orally Once a day Active Amoxicillin 500 MG 1 capsule Orally yusef ry 8 hrs Active Arnuity Ellipta 100 MCG/ACT 1 puff Inhalation Once a day Not-Taking Flovent HFA Active Amoxicillin-Pot Clavulanate 875-125 MG 1 tablet Orally every 12 hrs Not-Taking Acetaminophen 500 MG 1 capsule as needed Orally every 6 hrs Active Zolpidem Tartrate 10 MG 1 tablet at bedt ann-marie as needed Orally Once a day Active Gabapentin 600 MG 1 tablet Orally Once a day Active Albuterol Sulfate HFA 108 (90 Base) MCG/ACT 1 puff as needed Inhalation every 4 hrs Active Vitamin D2 Active Venlafaxine HCl ER 150 MG 1 capsule with food Orally Once a day Active Omeprazole 20 MG 1 capsule 30 minutes before morning meal Orally Once a day Active Vitamin B12 1000 MCG 1 tablet Orally Onc e a day Active Atorvastatin Calcium 80 MG 1 tablet Oral ly Once a day Active Lurasidone HCl 80 MG 1 tablet in the evening with food Orally Once a day Active eliquis 5 mg Active predniSONE 20 MG 1 tablet Orally Once a day Active Nitrofurantoin Monohyd Macro 100 MG 1 capsule with food Orally every 12 hrs Active traMADol HCl 50 MG 1 tablet as needed Orally Once a day Active Rocklatan 0.02-0.005 % 1 drop into affec qiana eye Ophthalmic Once a day Active Chlorhexidine Not-Ta river Latanoprost 0.005 % 1 drop into affected eye in the evening Ophthalmic Once a day Active oxyCODONE HCl 5 MG 1 tablet as needed Orally every 6 hrs Not-Taking LORazepam 2 MG 1 tablet at bedtime as needed Orally Once a day Not-Taking Social History Tobacco Use: Social History Observation [...] Osteoarthritis of midtarsal joint of left foot (2488658429663152 ) Osteoarthritis of midtarsal joint of left foot (M19.072) Active confirmed Problem Osteoarthritis of midtarsal joint of right foot (9394884913364428 ) Osteoarthritis of midtarsal joint of right foot (M19.071) Active confirmed Vital Signs Height 5 ft 2 in in 08/09/2024 Weight 227 lbs 08/09/2024 BMI 41.51 kg/m2 08/09/2024 Encounters Encounter Location Date Provider Diagnosis [facility] [address] [address] 08/09/2024 Darin Oriana Pain in left foot [...] of midtarsal joint of right foot M19.071 [facility] [place] [address] [place] [address] 08/07/2024 Darin Gastelum Assessments Encounter Date Diagnosis (ICD Code) Assessment Notes Treatment Notes Treatment Clinical Notes Section Notes 08/09/2024 Pain in left ankle and joints of left foot (ICD-10 - M25.572) 08/09/2024 Pain in left foot (ICD-10 - M79.672) 08/09/2024 Bursitis of left foot (ICD-10 - [...] X ray : Foot, right 3V 08/09/2024 Insurance Providers Payer Name Payer Address Payer Phone Subscriber Number Group Number Insured Name Patient Relationship to Insured Coverage Start Date Coverage End Date [facility] [employer] Claims [address] [facility] [place] [address] [phone] [id number] Nato Goodman Self - patient is the insured Medical (General) History Medical History History ICD Code Anxiety Arthritis asthma Back,Hip,and Knee pain CAD (Cholesterol) covid-19 Depression Fibromyalgia Gall bladder problems Glaucoma nerve disorder Neuropathy Poor circulation Psychiatric disorder Reflux ( GERD) Sciatica Chicken pox Transfusions Obesity, morbid Hypercholesterolemia dyspnea fatigue cough Lumbar disc disease Obstructive Sleep apnea Phlegmasia Cerulea Dolens Vitamin B12 deficiency Condyloma Acuminata Lung Granuloma DVT, thrombophlebitis Degenerative disc disease Surgical History Surgery Date(Month/Year) embolectomy S/P Laparoscopic appendectomy colonoscopy bilateral tubal ligation carpal tunnel release bilateral oopherectomy Benign neoplasm of neck S/P IVC Filter gall bladder tooth extraction
== END 2024-10-29 10:13 | disposition home or self-care (01) ==
LOC: HO.LAB 10:12
PROVIDERS: PCP Internal Medicine; Visit Provider Nurse Practitioner Family
DX: R10.9 Unspecified abdominal pain (principal); R31.0 Gross hematuria; Z87.898 Personal history of other specified conditions
CPT/HCPCS: 81001; 87086

== ENCOUNTER 2024-11-13 07:29 | Outpatient (AMB) | payer OTHER, SELFPAY ==
--- NOTE | 2024-11-13 07:30 | A.OFFVIS_ITS ---
Intake Visit Reasons: 4w/CT(set) Intake Note: Patient presents today for tele visit follow up on: dysuria and bladder pain Urology Medications: none Blood Thinner: Apixaba Private Branch Exchange Operator Required: Yes Private Branch Exchange Operator Services: Private Branch Exchange Operator Present Private Branch Exchange Operator Name: SHELL JACKSONTIFFANIE Allergies No Known Allergies Allergy (Verified 11/13/24 08:38) Medication List - Last Reconciled 11/13/24 by LOLITA Shah acetaminophen 325 mg PO DAILY PRN albuterol sulfate 2.5 mg inhalation QID PRN albuterol sulfate 90 mcg/actuation (Ventolin HFA) 2 puffs inhalation Q6H PRN 30 days apixaban (Eliquis) 5 mg PO BID atorvastatin 80 mg PO DAILY 90 days [COMPRESSION STOCKINGS (pantyhose) As directed] cyanocobalamin (vitamin B-12) 1,000 mcg PO DAILY 90 days dorzolamide-timolol 22.3-6.8 mg/mL 1 drp ophthalmic (eye) DAILY ergocalciferol (vitamin D2) 1,250 mcg PO QWEEK 3 months Flovent HFA 220 mcg/actuation (fluticasone propionate) 2 puffs inhalation BID 30 days NS gabapentin 600 mg PO TID latanoprost 0.005% 1 drp ophthalmic (eye) BEDTIME lithium carbonate ER 450 mg PO BID lorazepam 0.5 mg PO QAM PRN lurasidone (Latuda) 40 mg PO BEDTIME nitrofurantoin macrocrystal 100 mg PO BID 10 days nitrofurantoin monohyd/m-cryst 100 mg (Macrobid) 100 mg PO BID 10 days omeprazole 20 mg PO DAILY PRN [rollator walker with seat As directed] terconazole 0.8% 1 appful vaginal BEDTIME 3 days tramadol 50 mg PO BID PRN 30 days venlafaxine ER 150 mg PO QPM zolpidem (Ambien) 10 mg PO BEDTIME HPI Comments Details: Nato is a pleasant 64-year-old Maltese-speaking female patient of Dr. Smita calloway. She has a past medical history of obesity, hypercholesteremia, obstructive sleep apnea, anxiety, insomnia, vitamin B12 deficiency, fibromyalgia, depression, neuropathy, DVT, asthma, and degenerative disc disease. She is being followed up on today via telehealth any. Of note, patient was seen approximately three months ago as a new patient for gross hematuria at which time a CT urogram was ordered in recommendations were made for in office cystoscopy. During last office visit patient underwent an office cystoscopy with Dr. Jacobo Schmidt 10/14 that noted mild to moderate trabeculations, no suspicious bladder lesions visualized. At time of last office visit CT urogram remain pending therefore these results reviewed with the patient today. No hydronephrosis, lesions or nephrolithiasis noted bilaterally. The bladder is fluid-filled and contrast filled bladder. Diverticular disease, descending colon/proximal sigmoid colon with questionable non complicated acute to subacute diverticulitis. When asked she denies any other bouts of gross hematuria. She does however continue to report dysuria and pain upon urination. Previous urine culture results are as follows: 05/13 10,000-50,000cfu/ml; mixed bacterial vivi, 12/2409,000 to 50,000 cfu/ml; mixed bacterial vivi, 04/13 no growth, 06/13 no growth, 09/13 10,000- 50,000cfu/ml; mixed bacterial vivi, 11/13 <10,000 cfu/ml We discussed potential causes for lower urinary tract symptoms patient was experiencing. We discussed obtaining Microgen for further assessment evaluation. She otherwise denies urinary urgency, urinary frequency, incontinence, nocturia, foul smelling urine, changes to urinary stream, flank pain, fever, and or chills. She denies any previous history of nicotine dependence and or workplace chemical exposure. She otherwise offers no other issues or concerns at this time. [facility] Medical History Insomnia Morbid obesity with BMI of 40.0-44.9, adult Pure hypercholesterolemia Exertional dyspnea Fatigue Cough Lumbar degenerative disc disease Phlegmasia cerulea dolens Obstructive sleep apnea COVID-19 Hyperthyroidism Anxiety Obstructive sleep apnea Condyloma acuminata Vitamin B12 deficiency Lung granuloma Phlegmasia cerulea dolens Chronic low back pain Vitamin D deficiency Obesity (BMI 30-39.9) Fibromyalgia Depression Neuropathy DVT (deep venous thrombosis) Asthma DDD (degenerative disc disease) Surgical History S/P laparoscopic appendectomy History of embolectomy Benign neoplasm of neck History of colonoscopy History of bilateral tubal ligation History of carpal tunnel release History of bilateral oophorectomy S/P IVC filter Family History Father Liver cirrhosis Cancer Mother Heart attack Coronary artery disease Asthma Diabetes mellitus Brother No problems noted. Sister No problems noted. Sister No problems noted. Sister No problems noted. Sister No problems noted. Sister No problems noted. Sister No problems noted. Sister No problems noted. Sister No problems noted. Sister No problems noted. Sister No problems noted. Sister No problems noted. Sister No problems noted. Sister No problems noted. Paternal Aunt Colon cancer Son Histiocytosis Son No problems noted. Son No problems noted. 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) Alcohol intake: former Patient Tobacco Use Status: Never used Tobacco e-Cigarette/Vaping Use: Never Used Second Hand Smoke Exposure: No Advance Directives Date on File: 08/15/23 service: No Current occupational status: disabled Current occupation: right hand Cognitive needs: Yes (cane) Hearing needs: No Vision needs: Yes Review of Systems Eyes Reports no additional complaints ENT Reports no additional complaints Card Reports as per HPI Resp Reports as per HPI GI Reports no additional complaints Reports as per HPI Musc Reports as per HPI Neuro Reports as per HPI Psych Reports as per HPI Endo Reports no additional complaints Thony/Lymph Reports no additional complaints Aller/Immun Reports no additional complaints Physical Exam Const General: cooperative Orientation/consciousness: patient oriented x3 Resp Effort & Inspection: able to speak in complete sentences Neuro General: patient oriented x3 Psych Speech and movement: Clear speech present Attitude: cooperative Thought content: Normal thought content present Insight: Fair insight present (Psych) Judgement: Fair judgement present (Psych) Telehealth Telehealth Telehealth Platform: [facility] Location of provider rendering services: practice address Location of patient: address on file Patient Identification confirmed using: Name, : Yes Telehealth method: video Patient verbally consented to treatment: Yes Patient verbally consented to billing insurance company: Yes Patient informed of any privacy concerns related to visit: Yes Minutes spent on Phone/Video with Pt.: 15 Results Reviewed Results Reviewed: Date of Service: 10/03/24 EXAMINATION: CT ABDOMEN AND PELVIS WITHOUT AND WITH CONTRAST FINDINGS: Submitted for interpretation on November 07, 2024. LUNG BASES: 2.5 mm calcified pulmonary nodule, left lung base. No acute airspace disease in the included lungs. LIVER, GALLBLADDER, AND BILIARY TREE: Liver measures 17 cm. Punctate calcifications. No focal mass. Portal veins, hepatic veins and intrahepatic portions of the IVC are patent. Status post cholecystectomy, likely laparoscopic. Common bile duct measures 4 mm. PANCREAS: No focal mass. No peripancreatic fluid collections. No main pancreatic ductal dilatation. SPLEEN: 9 cm. No focal mass. ADRENAL GLANDS: No nodular lesions. KIDNEYS AND URETERS: No hydronephrosis. No nephrolithiasis. No gross enhancing lesion within the renal parenchyma. Normal urinary excretion into the collecting system. lobulations, bilaterally.. BLADDER: Fluid-filled and contrast-filled bladder. Tiny intraluminal gas bubble in a nondependent portion. GASTROINTESTINAL TRACT: Numerous diverticula in the left hemicolon mostly in the descending colon with mild pericolonic edema pattern at the descending colon/proximal sigmoid colon junction. No peripheral enhancing fluid collection in the peritoneal cavity. Mesenteric edema pattern prominent mesenteric lymph nodes. No pneumoperitoneum. Abundant stool. No intestinal obstruction pattern. Gas and fluid-filled mildly prominent small bowel loops, nonspecific. Appendix is normal. No pneumatosis intestinalis. . ABDOMINAL WALL: No gross hernia. LYMPH NODES: Prominent lymph nodes in the mesentery. VASCULAR: Status post IVC filter placement. No aneurysm or dissection abdominal aorta. PELVIC VISCERA: Numerous punctate calcifications within the periphery of the uterus parenchyma. Prominent vessels in the adnexa. Fluid-filled tubular structures in the right adnexa and in proximity to the small bowel loops. OSSEUS STRUCTURES: Dextroconvex rotoscoliosis of the lumbar spine apex at L2-3. Multilevel thoracolumbar spondylosis. Grade 1 anterolisthesis L4-5 and L5-S1 the coxofemoral joints are intact with normal alignment.. Multiple partially calcified nodular lesions in the fat planes of the right gluteal region. IMPRESSION: No hydronephrosis or nephrolithiasis. Diverticular disease, descending colon/proximal sigmoid colon with questionable noncomplicated acute to subacute diverticulitis. Hepatomegaly, mild. Questionable hydrosalpinx, right side. Assessment & Plan Assessment & Plan (1) Gross hematuria: Code(s): R31.0 - Gross hematuria Category: Medical (2) Dysuria: Code(s): R30.0 - Dysuria Category: Medical (3) Pain with urination: Code(s): R30.9 - Painful micturition, unspecified Category: Medical Plan Recent CT urogram results reviewed with the patient today; as noted above. We discussed potential causes of diverticulitis; will refer to GI for further assessment evaluation. We discussed potential causes of dysuria and painful urination patient is reporting. Discussed obtaining microgen for further assessment evaluation. Previous urine culture results reviewed with the patient today; as noted above. Discussed, educated, and stressed the importance of adequate hydration in relation to lower urinary tract symptoms as well as overall health and well- being. Follow-up next available nurse visit to obtain microgen for further assessment and evaluation; will await results for potential treatment. Follow up with provider in 1-3 months; or sooner with any issues, concerns, and or questions. Orders: Referrals Gastroenterology Referral K57.92 - Diverticulitis of intestine, part unspecified, without perforation or abscess without bleeding Medications: Discontinued nitrofurantoin macrocrystal must administer with a meal/food Discontinued Reason: Patient Completed Course 100 mg PO BID 10 days 20 caps 0RF N39.0 - Urinary tract infection, site not specified nitrofurantoin monohyd/m-cryst 100 mg (Macrobid) must administer with a meal/food Discontinued Reason: Patient Completed Course 100 mg PO BID 10 days 20 caps 0RF Patient Instructions: The patient had an opportunity to ask questions regarding the treatment plan. All questions were answered. Physical exam, labs, and imaging were discussed and reviewed in detail. As well as risks, benefits, and discussion of treatment choices. No major barriers to understanding were identified. The patient expressed understanding and agreement with the above treatment plan. The patient was made aware they should contact our office by phone for worsening of their current condition, the appearance of new symptoms, or with any questions or concerns. Compliance is encouraged with any medications and follow up testing that is ordered. It is a privilege to be allowed the opportunity to participate in? your urological care.? Again, if you have any questions or concerns If you have any questions or concerns please do not hesitate to contact me. The office is [phone]. This note is constructed using voice recognition software. While every effort has been made to ensure accuracy automobile leasing supervisor errors may have been included. Yours sincerely, LOLITA Shah Coding Level of Care Code Tele Est Pt Level 3 (74349) Complex EM visit Add On G2211 Diagnoses Gross hematuria R31.0 Dysuria R30.0 Pain with urination R30.9
--- OUTSIDE RECORDS SUMMARY | 2024-11-13 07:31 | XMS_ITS ---
Author Organization [facility] Address [address] [place] [address] [place] [address] Care Team Providers Care Tire Changer Name Role Phone Angus GUSTAFSON, Glynn Primary Care Provider Darin Gonzalez Unavailable [phone] REASON FOR VISIT Seen Sooner Encounters En[facility] [address] [facility] Darin Gastelum Plan Of Treatment No Information Progress Notes * BEEBobAngelaB:[birth year] (64 yo F)Acc No.[id number]:10/15/2024 Progress Notes Patient:?Nato GAMBOA Provider:?Darin Gastelum DPM :1960???Age:64 Y???Sex:Female D ate:10/15/2024 Address: [address] [place], [place] Pcp:Glynn Greco MD Subjective: * Chief Complaints: [...] Gastelum DPM Date:?2023 Generated for Elke garrido/Neftali/eTransmitting on:?11/13/2024 07:31 AM EST
--- OUTSIDE RECORDS SUMMARY | 2024-11-13 07:32 | XMS_ITS ---
Author Organization [facility] Address [address] [place] [address] Care Team Providers Care Transition Rn Name Role Phone Denise Greco MDh Primary Care Provider Darin Gonzalez Unavailable [phone] Allergies No Known Allergies REASON FOR VISIT [...] as needed Orally Once a day Active Mazon Carbonate ER 450 MG 1 tablet at [...] Osteoarthritis of midtarsal joint of left foot (9326138529339978 ) Osteoarthritis of midtarsal joint of left foot (M19.072) Active confirmed Problem Osteoarthritis of midtarsal joint of right foot (0811062262620898 ) Osteoarthritis of midtarsal joint of right foot (M19.071) Active confirmed Vital Signs Height 5 ft 2 in in 08/09/2024 Weight 227 lbs 08/09/2024 BMI 41.51 kg/m2 08/09/2024 Encounters Encounter Location Date Provider Diagnosis [facility] [place] [address] [address] 08/09/2024 Darin Oriana Pain in left foot [...] * Jarocho GAMBOAB:[birth year] (63 yo F)Acc No.[id number]:08/09/2024 Progress Notes Patient:?Nato Gamboa Provider:?Darin Gastelum DPM :1960???Age:63 Y???Sex:Female D ate:08/09/2024 [facility] Pcp:Glynn Greco MD Subjective: * Chief Complaints: [...] Tablet 1 tablet Orally Once a dayTaking Mazon Carbonate ER 450 MG Tablet Extended Release [...] ray : Foot, right 3V * Procedure Codes:?55022 X-RAY EXAM OF LEFT FOOT 3V, Modifiers: 26 , [id number] X-RAY EXAM OF RIGHT FOOT 3V, Modifiers: [...] exercise to failure, expense, systemic complications, infection, [id number], prolongued postop course. Patient questions re: the various treatment options available, their successes and potential failures, and care home effects were discussed and the answers were [...] Gastelum DPM Date:?2023 Generated for Elke garrido/Neftali/Cierraitting on:?11/13/2024 07:31 AM EST History and Physical Notes * HPI [...] person, place, and t ann-marie [facility] DP PULSES (B): 1/4 , LEFT , 2/4 , RIGHT PT PULSES (B): 2/4 , RIGHT , 1/4 , LEFT CAPILLARY FILL TIME: immediate, all digi ts, B/L TEMPERTURE GRADIENT (C): warm to cool, p roximal to distal, B/L TROPHIC CONDITION-TEXTURE/ELASTICITY/TURGOR/HAIR GROWTH (B): normal, B/L EDEMA (C): absent, B/L PIGMENTATION: normal, B/L X-Rays - [...]
--- OUTSIDE RECORDS SUMMARY | 2024-11-13 07:32 | XMS_ITS | Data Portability ---
Author Organization [facility] Pain Managem LEWIS abebe PAIN OFFICE Address [address] [facility] [place] [address] Care Team Providers Care Auto Transport Driver Name Role Phone LEDY LOMBARDI Primary Care Provider [phone] Assessment Encounter Date Assessment Date Assessment LastModified [...] and she will follow up with her cold storage superintendent . She states she had a colonoscopy a few years back which was within normal limits. She can return for a repeat injection after?? seeing the cold storage superintendent. [email or web address] Not available 04/05/2013 10:19:04 12/06/2013 12/06/2013 [...] booked for the same. She needs a oil transport driver on the day of the procedure. She [...] booked for the same. She needs a oil transport driver on the day of the procedure. She is on coumadin. She can stop coumadin for 5 days prior to the procedure per her PCP. Her INR needs to be 1.1 or less on the day of the procedure to proceed. She will have it checked at [facility] and fax us the results. [email or web address] Not [...] stat on 01/04. Please fax results to [phone] . Thanks. 2016 017 [facility] (Lab), [address] [facility] [address] [facility], [place], [address], 7 17:12:59 Referral None recorded. Procedures None recorded. Surgeries None recorded. Imaging None recorded. Medication Orders lidocaine 5 % topical patch 2013 014 [id number], [address] [facility] [facility], [place], [address], 7 08:58:28 Patient TargetsNo targets recorded. Patient Instructions Encounter Date Encounter Id Patient Instructions Last Modified By Organization Details Last Modified Time 04/04/2013 [id number] She was advised against bed rest lasting longer than four days and to continue activities as tolerated. [email or web address] Not available 04/05/2013 10:16:09 12/06/2013 [id number] She was advised against bed rest lasting longer than four days and to continue activities as tolerated. [email or web address] Not available 12/07/2013 09:19:05 12/11/2013 [id number] She was advised against bed rest lasting longer than four days and to continue activities as tolerated. [email or web address] Not available 12/11/2013 10:55:58 12/27/2016 [id number] She was advised to continue with activities as tolerated. [email or web address] Not available 12/27/2016 14:29:02 01/04/2017 [id number] She was advised to continue with activities [...] Recorded Time Spinal stenosis of lumbar region [id number] Riana heard MD [address] [place] [address] , [address], [facility] [place], [address] [facility] [place] - [facility] 4 10:58:50 Enthesopathy of hip region [id number] Riana heard, MD [address] , [address], [place], [address], [place] [facility] 4 10:58:50 Lumbosacral radiculitis 49945958 Active Sepideh heard MD [address] , [address], [place], [address], [place] [facility] 4 10:58:50 Pseudoclaudi cation syndrome Completed 12/06/2013 Sepideh heard MD [address] , [address], [facility] [place], [address], [place] [facility] 4 15:39:47 Problem Notes None recorded. Procedures Surgical History Date Name Laterality Status Provider Name and Address Organization Details Recorded Time 01/04/20 17 Lumbar Epidural steroid injection under fluoroscopic guidance completed Sepideh Kuo MD [address] , [address], [facility] [place], [address], [place] [facility] 01/05/2017 14:24:15 12/11/19 14 Greater Trochanteric Bursa Steroid Injection completed Sepideh Kuo MD [address] , [address], [place], [address], [place] [facility] 12/11/2013 10:58:50 12/04/19 13 Lumbar Epidural steroid injection under fluoroscopic guidance completed Sepideh Kuo MD [address] , [address], [place], [address], [place] [facility] 12/05/2012 15:51:55 08/21/20 12 Lumbar Epidural steroid injection under fluoroscopic guidance completed Sepideh Kuo MD [address] , [address], [place], [address], [place] [facility] 08/23/2012 08:38:37 Carpal tunnel release completed Bettina Zapata [place] - [facility] 12/27/2016 09:01:07 Other completed Bettina Zapata [place] - [facility] 12/27/2016 09:20:46 Other completed Sepideh Kuo MD [address] , [address], [place], [address], [facility] - Pain Management 08/10/2012 14:27:17 Other completed Sepideh Kuo MD [address] [facility] , [address], [facility], [address], [facility] - Pain Management 08/10/2012 14:27:17 Arthroscopic Surgery completed Bettina Zapata [place] - [facility] 12/04/2012 09:39:02 Other completed Bettina Zapata [place] - [facility] 08/10/2012 13:44:34 Imaging Results [...] Details Last Updated DateTime 4 162.56 cm 109100. 2451 g 39.5 kg/m2 56 /min 100 [...] Tobacco Smoking Status Never Smoker Not Available [facility] 09/05/2020 03:16:10 What Is Your Level Of Alcohol Consumption? None [id number] Information not available 09/05/2020 Are You Currently Employed? No [id number] Information not available 09/05/2020 Which Illicit Or Recreational Drugs Have You Used? 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 [id number] Information not available 09/05/2020 Live Alone Or [...] Diagnosis/Indication Diagnosis SNOMED-CT Code Diagnosis ICD10 Code 60950 Sepideh Kuo MD PAIN OFFICE [address] [facility] [place] [address] 08/10/2012 13:05:06 08/10/2012 15:37:45 25281 Sepideh Kuo MD [facility] PAIN OFFICE [address] [facility] [place] [address] 08/21/2012 14:40:55 08/21/2012 15:48:27 36770 Sepideh Kuo MD PAIN OFFICE [address] [facility] [place] [address] 09/21/2012 14:38:42 09/21/2012 14:50:30 13927 Sepideh Kuo MD [facility] PAIN OFFICE [address] [facility] [place] [address] 12/04/2012 14:43:16 12/04/2012 15:30:05 31870 Sepideh Kuo MD [facility] PAIN OFFICE [address] [facility] [place] [address] 04/04/2013 09:50:29 04/04/2013 15:31:36 03789 SV PAIN OFFICE [address] [place] [address] 12/06/2013 14:21:13 12/07/2013 09:23:01 Enthesopathy of hip region 46714420 Lumbosacra l radiculitis 33959396 Spinal charanjit nosis of lumbar region 49704690 84129 [facility] PAIN OFFICE [address] [facility] [place] [address] 12/11/2013 09:14:36 12/11/2013 10:59:34 Spinal stenosis of lumbar region 89845648 Enthesopat hy of hip region 59605691 Lumbosacra l radiculitis 57049715 35678 [facility] PAIN OFFICE [email or web address] [place] [address] 12/27/2016 08:36:45 12/27/2016 14:33:08 Lumbosacral radiculitis 58744769 M54.17 Displaceme nt of lumbar intervertebral disc without myelopathy 84142337 M51.26 Lumbosacra 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 08793701 M47.817 Spinal charanjit nosis of lumbar region 87174899 M48.06 Long-term drug therapy 661853245 Z79.02 92270 Sepideh Kuo MD PAIN OFFICE [address] [place] [address] 01/04/2017 14:54:03 01/06/2017 08:36:22 Lumbosacral radiculitis 72838209 M54.17 Displaceme nt of lumbar intervertebral disc without myelopathy 94432534 M51.26 Lumbosacra 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 65771038 M47.817 Spinal charanjit nosis of lumbar region 37573112 M48.06 Long-term drug therapy 498864811 Z79.02 Health Concerns Section Related Observation LastModified by Organization Detai ls LastModified Time None Recorded Concern Status LastModified by Organization Details LastModified Time None Recorded Advance Directives Directive None Recorded Payers Encounter Date Sequence Insurance Name Policy Number Policy Smart Covered Member ID Smart Member ID Guarantor Name 04/04/2013 1 [place] [facility] Nato Goodman [id number] Nato Goodman 12/06/2013 1 [place] [facility] Nato Goodman [id number] Nato Goodman 12/11/2013 1 [place] [facility] Nato Goodman [id number] Nato Goodman 12/27/2016 1 [facility] HE[facility] NET PLAN (MEDICAID HMO) [id number] Nato Goodman [id number] Nato Goodman 01/04/2017 1 [facility] HEALTH NET PLAN (MEDICAID HMO) [id number] Nato Goodman [id number] Nato Goodman Notes Date Note Type Note [...] 1 years old. Sepideh Kuo MD [address] [facility] , [address], [place], [address], [facility] - Pain Management 04/05/2013 14:55:52 [...] or bowel incontinence. Sepideh Kuo MD [address] [facility] , [address], [place], [address], [place] - [facility] Management 12/12/2013 13:30:10 12/11/2013 text/html She is here for a trial of right trochanteric bursal injection under lfuorscopic guidance. She has stopped her coumadin. INR is 1.2 this morning. Sepideh Kuo MD [address] [facility] , [address], [place], [address], [place] - [facility] 12/12/2013 13:32:15 12/27/2016 [...] for grocery shopping. Sepideh Kuo MD [address] [facility] , [address], [place], [address], [facility] Pain Management 12/31/2016 12:00:00 01/04/2017 text/html She is here for a lumbar epidural steroid injection under fluoroscopic guidance. She has stopped coumadin for 5 days and her INR is 1.0 this morning. Sepideh Kuo MD [address] [facility] , [address], [place], [address], [facility] Pain Management 01/13/2017 16:01:57 OBGyn Episode No OBEpisode recorded.
--- OUTSIDE RECORDS SUMMARY | 2024-11-13 07:32 | XMS_ITS | Patient Health Record ---
Author Organization [facility] Address [address] [place] [address] Care Team Providers Care Crew Director Name Role Phone Denise Greco MDh Primary Care Provider Darin Gonzalez Unavailable [phone] Allergies No Known Allergies Reason For Referral [...] Orally Once a day Active Dorzolamide-Timolol Active [place] Carbonate ER 450 MG 1 tablet at [...] Osteoarthritis of midtarsal joint of left foot (2139470949827948 ) Osteoarthritis of midtarsal joint of left foot (M19.072) Active confirmed Problem Osteoarthritis of midtarsal joint of right foot (4914177913844862 ) Osteoarthritis of midtarsal joint of right foot (M19.071) Active confirmed Vital Signs Height 5 ft 2 in in 08/09/2024 Weight 227 lbs 08/09/2024 BMI 41.51 kg/m2 08/09/2024 Encounters Encounter Location Date Provider Diagnosis [facility] [address] [address] [address] 08/09/2024 Darin Oriana Pain in left foot [...] of midtarsal joint of right foot M19.071 [facility] [place] [address] [place] [address] 08/07/2024 Darin Gastelum Assessments Encounter Date Diagnosis [...] Insured Coverage Start Date Coverage End Date [facility] SCO Claims [address] [facility] [place] [address] [phone] [id number] Nato Goodman Self - patient is the [...]
--- OUTSIDE RECORDS SUMMARY | 2024-11-13 07:32 | XMS_ITS ---
Author Organization [facility] Address [address] [place] [address] Care Team Providers Care Demolition Engineer Name Role Phone Angus GUSTAFSON, Icard Primary Care Provider Unava Darin Cruz Unavailable [phone] REASON FOR VISIT PCP Notes & VETERANS SERVICE OFFICER PPWK Entered Encounters Encounter Location Date Provider Diagnosis [facility] [address] [place] [address] 08/07/2024 Darin Gastelum Plan Of Treatment No Information Progress Notes * Jarocho GAMBOAB:[birth year] (63 yo F)Acc No.[id number]:08/07/2024 Patient:?Nato Gamboa :1960???Age:63 Y???Sex:Female Address: [place], [address] * true * Date:? Generated for Printi hema/Neftali/eTransmitting on:?11/13/2024 07:31 AM EST
== END 2024-11-13 09:31 | disposition home or self-care (01) ==
LOC: HO.HUSH 07:29
PROVIDERS: PCP Internal Medicine; Visit Provider Nurse Practitioner Family
DX: R31.0 Gross hematuria (principal); R30.0 Dysuria; R30.9 Painful micturition, unspecified
CPT/HCPCS: 99213; G2211

== ENCOUNTER → 2024-11-13 07:29 | Outpatient (BNVA) | payer OTHER, SELFPAY | PROVIDERS: PCP Internal Medicine; Visit Provider Nurse Practitioner Family ==

== ENCOUNTER 2024-12-31 07:15 | Outpatient (REF) | payer OTHER, SELFPAY ==
--- OUTSIDE RECORDS SUMMARY | 2024-12-31 07:17 | XMS_ITS | Encounter Summary ---
Author Organization [employer] Address [address] [place] [address] 7 [place] [address] Care Team Providers Care Boring Inspector Name Role Phone Unavailable Primary Care Provider Unavailabl e Reason for Visit * Reason Comments EMG Encounter Details Date Type Department Care Team ([facility] st Contact Info) Description 12/05/2024 1:00 PM EST Office Visit [facility] ADULT DENTAL [address] [place] [address] Yuliana Jung DDS [address] [place] [address] Retained dental root (Primary Dx) Social History Tobacco Use Types Packs/Day Years Used Date Smoking Tobacco: Never Smokeless Tobacco: Never Alcohol Use Standard Drinks/Week Comments Never 0 (1 standard drink = 0.6 oz pur e alcohol) Comments Unknown Sex and Gender Information Value Date Recorded Sex Assigned at Female 09/20/2022 10:15 AM EDT Legal Sex Female 10:15 AM EDT Gender Identity Female 09/20/2022 10:15 AM EDT Sexual Orientation Choose not to disclose 2021 10:15 AM EDT documented as of this encounter Progress Notes * Yuliana Jung DDS - 12/05/2024 1:00 PM EST Dental procedures in this visit D9110 - ADJUNCTIVE GENERAL SERVICES - UNCLASSIFIED TREATMENT - PALLIATIVE TREATMENT OF DENTAL PAIN - PER VISIT 14 (Completed) Service provider: Yuliana Jung DDS Billing provider: Yuliana Jung DDS D9450 - ADJUNCTIVE GENERAL SERVICES - PROFESSIONAL VISITS - CASE PRESENTATION, SUBSEQUENT TO DETAILED AND EXTENSIVE TREATMENT PLANNING (Completed) Service provider: Yuliana Jung DDS Billing provider: Yuliana Jung DDS Patient ID: Nato Goodman is a 64 y.o. female. Time Out: Timeout Date: 12/05/24, Timeout Time: 1316 (EMG Upper left side) Location: [facility] Tooth: UL, #14, and #15 Procedure: Emergency Verified the above with patient, processing assistant, and provider. Confirmed via patient's chart, intraorally and by radiographs. Gold Frame Assembler: not applicable Chief Complaint Patient presents with EMG Medical Hx: Vitals: There were no vitals taken for this visit. Past Medical History: Diagnosis Date Angina pectoris (CMS/HCC) Asthma Disease of thyroid gland GERD (gastroesophageal reflux disease) Glaucoma History of blood clots Hx of jail use of blood thinners Medications: Outpatient Encounter Medications as of 12/05/2024 Medication Sig Dispense Refill acetaminophen (Tylenol) 500 MG tablet Take 1 tablet (500 mg) by mouth every 6 (six) hours if neededfor mild pain for up to 20 doses. 20 tablet 0 albuterol (2.5 MG/3ML) 0.083% nebulizer solution INHALE 1 AMPULE USING A NEBULIZER FOUR TIMES DAILYAS NEEDED FOR WHEEZING OR SHORTNESS OF BREATH amitriptyline (Elavil) 25 MG tablet Take 1 tablet by mouth at bedtime. amoxicillin (Amoxil) 500 MG capsule Take 1 capsule (500 mg) by mouth every 8 (eight) hours for 7 days. 21 capsule 0 Arnuity Ellipta 100 MCG/ACT inhaler 1 puff in the morning. atorvastatin (Lipitor) 80 MG tablet Take 80 mg by mouth in the morning. cholecalciferol (Vitamin D-3) 1.25 MG (56251 UT) capsule cholecalciferol (vitamin D3) 1,250 mcg (50,000 unit) capsule TAKE 1 CAPSULE BY MOUTH ONCE A WEEK cyanocobalamin (Vitamin B-12) 1000 MCG tablet Take 1 tablet by mouth Once per day. cyclobenzaprine (Flexeril) 10 MG tablet 1 tab at bedtime DULoxetine (Cymbalta) [address] capsule Take 1 capsule by mouth in the morning. Eliquis 5 MG tablet Take 5 mg by mouth 2 times daily. ergocalciferol (Vitamin D2) 1.25 MG (36187 UT) capsule Take 1 capsule by mouth 1 (one) time per week. escitalopram (Lexapro) 20 MG tablet escitalopram 20 mg tablet TAKE 1 TABLET BY MOUTH EVERY MORNING gabapentin (Neurontin) 400 MG capsule 2 times daily. gabapentin (Neurontin) 600 MG tablet Take 1 tablet by mouth 3 times daily. lithium ER (Eskalith) 450 MG 12 hr tablet TAKE 2 TABLETS BY MOUTH EVERY MORNING DIRECTED LORazepam (Ativan) 2 MG tablet TAKE 1 TABLET BY MOUTH EVERY DAY AT 5 IN THE EVENING Lumigan 0.01 % ophthalmic solution PONGA INGRIS GOTA EN LOS DOS OJOS AL ACOSTARSE lurasidone (Latuda) 80 MG tablet Take 80 mg by mouth at bedtime. methocarbamol (Robaxin) 750 MG tablet TAKE 1 TABLET BY MOUTH EVERY 8 HOURS NEEDED MUSCLE PAIN omeprazole (PriLOSEC) [address] capsule TAKE 1 CAPSULE BY MOUTH EVERY DAY NEEDED FOR HEARTBURN ondansetron ODT (Zofran-ODT) 4 MG disintegrating tablet ondansetron 4 mg disintegrating tablet DISSOLVE 1 TABLET BY MOUTH EVERY 8 HOURS NEEDED FOR NAUSEA/VOMITING POR 10 D oxyCODONE (Roxicodone) 5 MG immediate release tablet Proventil HFA 108 (90 Base) MCG/ACT inhaler INHALE 2 PUFFS EVERY 6 HOURS NEEDED FOR WHEEZING OR SHORTNESS OF BREATH. Rocklatan 0.02-0.005 % solution PONGA INGRIS GOTA EN LOS DOS OJOS TODOS LOS D POR LA NOCHE traMADol (Ultram) 50 MG tablet TOME INGRIS TABLETA POR V A ORAL DOS VECES AL D A CUANDO SEA NECESARIO FOR PAIN venlafaxine XR (Effexor XR) 150 MG 24 hr capsule Take 150 mg by mouth in the evening. warfarin (Coumadin) 3 MG tablet TOME 3 O 4 TABLETAS POR VIA ORAL TODOS LOS CRAFT warfarin (Coumadin) 5 MG tablet TAKE 2 TABLETS BY MOUTH DAILY DIRECTED zolpidem (Ambien) 10 MG tablet Take 10 mg by mouth at bedtime. No facility-administered encounter medications on file as of 12/05/2024. Subjective: Pain: intermittent, moderate Duration: >5 months Objective: Pt in office because of pain on UL side. Pt previously visited the office and was referred for Rct #14 but eventually tooth had to extracted. Later she came back because of pain on the area. A large DO amalgam is present on #13, Dr. Springer referred that she has root tips on the area, but if the pain continues #13 will need RCT or ext. Pt expressed she is very apprehensive of RCT procedure because of the last experience. Pt today with pain on the area again. A new xray is taken and possible MB root tips of #14 and #15 are observed. These extractions were performed at [facility]. Pt refers recurrent pain on the area, today is positive to palpation on B vestibule, negative to percussion and palpation on #13. Advised pt to return to [facility] for the extraction of these root tips and a re- evaluation will be conducted if symptoms persist. Pt agreed, referral given to pt. Medication sent to [facility]. Diagnosis: Root tips #14, #15 Assessment/Plan: Referred for ext [facility] Prescriptions: Amoxicillin 500 mg/tid/7 days 21 caps Pt tolerated procedure well, all questions answered. Dismissed in good condition. Syrup Blender: Shanika Haro Dentist: Yuliana Jung DDS documented in this encounter Plan of Treatment Upcoming Encounters Date Type Department Care Team (Late st Contact Info) Description 01/30/2025 8:00 AM EDT Office Visit [facility] ADULT DENTAL [address] [place] [address] Nona Montanez documented as of this encounter Procedures Procedure Name Priority Date/Time Associated Diagnosis Comments 14 ADJUNCTIVE GENERAL SERVICES - UNCLASSIFIED TREATMENT - PALLIATIVE TREATMENT OF DENTAL PAIN - PER VISIT Routine 12/05/2024 1:00 PM EST Retained dental root ADJUNCTIVE GENERAL SERVICES - PROFESSIONAL VISITS - CASE PRESENTATION, SUBSEQUENT TO DETAILED AND EXTENSIVE TREATMENT PLANNING Routine 12/05/2024 1:00 PM EST Retained dental root documented in this encounter Visit Diagnoses Diagnosis Retained dental root- Primary documented in this encounter
--- OUTSIDE RECORDS SUMMARY | 2024-12-31 07:17 | XMS_ITS | Encounter Summary ---
Author Organization [employer] Address [address] [place] [address] 7[address] [place] [address] Care Team Providers Care Orthotic Fitter Name Role Phone Unavailable Primary Care Provider Unavailabl e Reason for Visit * Reason Onset Date Comments referral to [facility] y 12/28/2024 Encounter Details Date Type Department Care Team ([facility] st Contact Info) Description 12/28/2024 Telephone [facility] ADULT DENTAL [address] [place] [address] Yuliana Jung, DDS [address] [place], [place] [id number] referral to [facility] Social History Tobacco Use Types Packs/Day Years [...] AM EDT documented as of this encounter Miscellaneous Notes * Telephone Encounter - Matilde Montez - 12/28/2024 9:13 AM EST Patient called in stating that needs to have referral faxed over to Maxillof[facility] Surgery in [place]. They state they have not received. Faxed over again today from [facility] ariane CROWLEY documented in this encounter Plan of Treatment Upcoming Encounters Date Type Department Care Team (Late st Contact Info) Description 01/30/2025 8:00 AM EDT Office Visit [facility]ULT [facility] [address] [place] [address] Nona Montanez documented as of this encounter Visit Diagnoses Not on filedocumented in this encounter
--- OUTSIDE RECORDS SUMMARY | 2024-12-31 07:17 | XMS_ITS | Encounter Summary ---
Author Organization [facility] Address [address] [place] [address] 7t [place] [address] Care Team Providers Care Certified Professional Ergonomist Name Role Phone Unavailable Primary Care Provider Unavailabl e Encounter Details Date Type Department Care Team (Latest Contact Info) Description 01/15/2022 Abstract [facility] CONVERSIONS Dental, Provider, DDS Social History Tobacco Use Types Packs/Day Years Used Date Smoking Tobacco: Never Assessed Comments Unknown Sex and Gender Information Value Date Recorded Sex Assigned at Female 09/20/2022 10:15 AM EDT Legal Sex Female 10:15 AM EDT Gender Identity Female 09/20/2022 10:15 AM EDT Sexual Orientation Choose not to disclose 2021 10:15 AM EDT documented as of this encounter Plan of Treatment Upcoming Encounters Date Type Department Care Team (Late st Contact Info) Description 01/30/2025 8:00 AM EDT Office Visit [facility] ADULT DENTAL [address] [place] [address] Nona Montanez documented as of this encounter Visit Diagnoses Not on filedocumented in this encounter
--- OUTSIDE RECORDS SUMMARY | 2024-12-31 07:17 | XMS_ITS | Patient Health Record ---
Author Organization [facility] Address [address] [facility] [place] [address] Care Team Providers Care Highway Construction Inspector Name Role Phone Denise Greco MDh Primary Care Provider Darin Gonzalez Unavailable [phone] Allergies No Known Allergies Reason For Referral [...] Orally Once a day Active Dorzolamide-Timolol Active [place] Carbonate ER 450 MG 1 tablet at [...] Osteoarthritis of midtarsal joint of left foot (5580741033716565 ) Osteoarthritis of midtarsal joint of left foot (M19.072) Active confirmed Problem Osteoarthritis of midtarsal joint of right foot (6668965706650726 ) Osteoarthritis of midtarsal joint of right foot (M19.071) Active confirmed Vital Signs Height 5 ft 2 in in 08/09/2024 Weight 227 lbs 08/09/2024 BMI 41.51 kg/m2 08/09/2024 Encounters Encounter Location Date Provider Diagnosis [facility] [place] [address] [address] 08/09/2024 Darin Oriana Pain in left foot [...] of midtarsal joint of right foot M19.071 [facility] [place] [address] [place] [address] 08/07/2024 Darin Gastelum Assessments Encounter Date Diagnosis [...] Insured Coverage Start Date Coverage End Date [facility] SCO Claims [address] [facility] [place] [address] [phone] [id number] Nato Goodman Self - patient is the [...]
--- OUTSIDE RECORDS SUMMARY | 2024-12-31 07:17 | XMS_ITS | Encounter Summary ---
Author Organization [facility] Address [address] [place] [address] [address] [place] [address] Care Team Providers Care Full Roll Inspector Name Role Phone Unavailable Primary Care Provider Unavailabl e Encounter Details Date Type Department Care Team (Latest Contact Info) Description 05/22/2019 Abstract [facility] CONVERSIONS Dental, Provider, DDS Social History Tobacco [...] Description 01/30/2025 8:00 AM EDT Office Visit [facility] ADULT DENTAL [address] [place] [address] Nona Montanez documented as of this encounter Visit Diagnoses Not on filedocumented in this encounter
--- OUTSIDE RECORDS SUMMARY | 2024-12-31 07:17 | XMS_ITS | Data Portability ---
Author Organization [facility] Address [address] [facility] [place] [address] Care Team Providers Care Crystal Syrup Maker Name Role Phone LEDY LOMBARDI Primary Care Provider Assessment Encounter Date Assessment Date Assessment LastModified by Organization Details LastModified Time 04/04/2013 04/04/2013 51 year old bora n with low back pain radiating into the left lower extremity. She is here for a follow up after a ? ? ?trial of Lumbar epidural steroid injections under fluroscopic guidance . She reports good pain relief for 3 months. Her pain is slowly coming back. She states she has lower abdominal pain now and that is her worse pain today? ? ?. I spoke with Dr. Renee, Her PCP and she will follow up with her manager of patient . She states she had a colonoscopy a few years back which was within normal limits. She can return for a repeat injection after? ? ? seeing the manager of patient. salo Not available 04/05/2013 10:19:04 12/06/2013 12/06/2013 Nato Goodman is a 53 year old woman with right hip pain. On exam ,she has tenderness in the right trochanteric bursal region . Trial of ? ? ?right trochanteric bursal steroid injections under fluroscopic guidance was recommended. The risks and benefits of the procedure? ? ? were discussed in detail. She wishes to proceed. An appointment has been booked for the same. 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 She is on coumadin. I have discussed the same with Dr. Renee and she can stop coumadin for 5 days prior to the procedure. She will have INR checked at Dr. Renee's and fax us the results. I have prescribed lidoderm patches for her low back pain. [email or web address] Not available 12/07/2013 09:22:05 12/11/2013 12/11/2013 Nato Goodman is a 53 year old woman with right hip pain. On exam ,she has tenderness in the right trochanteric bursal region . She is here for a trial of ? ? ?right trochanteric bursal steroid injections under fluroscopic guidance? ? ? The risks and benefits of the procedure? ? ? were discussed in detail. She wishes to [...] booked for the same. 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 She is on coumadin. She can stop coumadin for 5 days prior to the procedure per her PCP. Her INR needs to be 1.1 or less on the day of the procedure to proceed. She will have it checked at [facility] and fax us the results. [...] coumadin tonight and follow dosing per PCP [email or web address] Not available 01/05/2017 14:25:45 Plan of Treatment Reminders Order Date Submit Date Provider Last Modified By Organization Details Last Modified Time Details Appointments None recorded. Lab INR, blood - Patient will be coming in for PT/INR stat on 01/04. Please fax results to [phone] . Thanks. 2016 017 [facility] (Lab), [address], [place], [address], 7 17:12:59 Referral None recorded. Procedures None recorded. Surgeries None recorded. Imaging None recorded. Medication Orders lidocaine 5 % topical patch 2013 014 [id number], [address] [facility], [place], [address], 7 08:58:28 Patient TargetsNo targets recorded. Patient Instructions Encounter Date Encounter Id Patient Instructions Last Modified By Organization Details Last Modified Time 04/04/2013 [id number] She was advised against bed rest lasting longer than four days and to continue activities as tolerated. [email or web address] Not available 04/05/2013 10:16:09 12/06/2013 [id number] She was advised against bed rest lasting longer than four days and to continue activities as tolerated. [email or web address] Not available 12/07/2013 09:19:05 12/11/2013 [id number] She was advised against bed rest lasting longer than four days and to continue activities as tolerated. [email or web address] Not available 12/11/2013 10:55:58 12/27/2016 [id number] She was advised to continue with activities as tolerated. [email or web address] Not available 12/27/2016 14:29:02 01/04/2017 [id number] She was advised to continue with activities [...] Recorded Time Spinal stenosis of lumbar region 57397231 Active Sepideh heard MD [address] [place] [address] , [address], [facility] [place], [address] , [facility] 4 10:58:50 Enthesopathy of hip region 40682729 Active Sepideh heard MD [address] , [address], [place], [address], [place] [facility] 4 10:58:50 Lumbosacral radiculitis 80566644 Active Sepideh heard MD [address] , [address], [place], [address], [place] [facility] 4 10:58:50 Pseudoclaudi cation syndrome Completed 12/06/2013 Sepideh heard MD [address] , [address], [place], [address], [place] [facility] 4 15:39:47 Problem Notes None recorded. Procedures Surgical History Date Name Laterality Status Provider Name and Address Organization Details Recorded Time 01/04/20 17 Lumbar Epidural steroid injection under fluoroscopic guidance completed Sepideh Kuo MD [address] , [address], [place], [address], [place] [facility] 01/05/2017 14:24:15 12/11/19 14 Greater Trochanteric Bursa Steroid Injection completed Sepideh Kuo MD [address] , [address], [place], [address], [place] [facility] 12/11/2013 10:58:50 12/04/19 13 Lumbar Epidural steroid injection under fluoroscopic guidance completed Sepideh Kuo MD [address] , [address], [place], [address], [place] [facility] 12/05/2012 15:51:55 08/21/20 12 Lumbar Epidural steroid injection under fluoroscopic guidance completed Sepideh Kuo MD [address] , [address], [place], [address], [place] [facility] 08/23/2012 08:38:37 Carpal tunnel release completed Bettina Zapata [place] [facility] 12/27/2016 09:01:07 Other completed Bettina Zapata [place] [facility] 12/27/2016 09:20:46 Other completed Sepideh Kuo MD [address] [facility] , [address], [place], [address], [facility] - [facility] 08/10/2012 14:27:17 Other completed Sepideh Kuo MD [address] [facility] , [address], [place], [address], [facility] - Pain Management 08/10/2012 14:27:17 Arthroscopic Surgery completed Bettina Avendañoer MD - Pain Management 12/04/2012 09:39:02 Other completed Bettina Steelezier MD - Pain Management 08/10/2012 13:44:34 Imaging Results [...] Details Last Updated DateTime 4 162.56 cm 270119. 2451 g 39.5 kg/m2 56 /min 100 % 100 % 158 mm[Hg] 59 mm[Hg] Bettina Zapata [place] [facility] 4 15:20:11 Date Recorded Heart rate Oxygen saturation Oxygen saturation in Arterial blood by Pulse oximetry Systolic blood pressure Diastolic blood pressure Provider Name and Address Organization Details Last Updated DateTime 4 55 /min 99 % 99 % 157 mm[Hg] 956 mm[Hg] Bettina Zapata [facility] 4 09:31:38 Date Recorded Body height Heart rate Oxygen saturation Oxygen saturation in Arterial blood by Pulse oximetry Systolic blood pressure Diastolic blood pressure Provider Name and Address Organization Details Last Updated DateTime 7 160.02 cm 59 /min 98 % 98 % 167 mm[Hg] 64 mm[Hg] Bettina Zapata [facility] - [facility] 7 08:56:22 Date Recorded Body height Heart rate Oxygen saturation Oxygen saturation in Arterial blood by Pulse oximetry Systolic blood pressure Diastolic blood pressure Provider Name and Address Organization Details Last Updated DateTime 7 160.02 cm 61 /min 99 % 99 % 155 mm[Hg] 80 mm[Hg] Bettina Zapata [facility] 7 15:08:38 Social History Question Answer Notes LastModified by Organizat ion Details LastModified Time Tobacco Smoking Status Never [facility]oker Not [facility] 09/05/2020 03:16:10 What Is Your Level Of Alcohol Consumption? None [id number] Information not available 09/05/2020 Are You Currently Employed? No [id number] Information not available 09/05/2020 Which Illicit Or Recreational Drugs Have You Used? 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 With Others And Child Information not available 08/10/2012 GED Yes [email or web address] Information no t available 08/10/2012 Marital Status Informatio n not available 08/10/2012 Sex: Unknown Functional Status None recorded. Mental Status None recorded. Family History Nothing Reported. Medical History Condition Response Neuropathy/Neuralgia Y Hyperthyroidism Y Depression Y Anxiety Disorder Y Arthritis Y Asthma Y Headache Y Gynecological HistoryNo gynecological history recorded. Obstetrics History GPAL:G 0 P 0 0 0 0 Past Encounters Encounter ID Performer Location Encounter Start Date Encounter Closed Date Diagnosis/Indication Diagnosis SNOMED-CT Code Diagnosis ICD10 Code Diagnosis Note [id number] Sepideh Kuo MD [facility] [address] [place] [id number] 08/10/2012 13:05:06 08/10/2012 15:37:45 [id number] Sepideh Kuo MD [facility] [address] [place] [id number] 08/21/2012 14:40:55 08/21/2012 15:48:27 [id number] Sepideh Kuo MD [facility] [address] [place] [address] 09/21/2012 14:38:42 09/21/2012 14:50:30 [id number] Sepideh Kuo MD [facility] [address] [place] [id number] 12/04/2012 14:43:16 12/04/2012 15:30:05 [id number] Sepideh Kuo MD [facility] [address] [facility] [place] [address] 04/04/2013 09:50:29 04/04/2013 15:31:36 [id number] [facility] [address] [place] [address] 12/06/2013 14:21:13 12/07/2013 09:23:01 Enthesopathy of hip region 21704603 Lumbosacra l radiculitis 99345578 Spinal charanjit nosis of lumbar region 39087903 [id number] [facility] [address] [place] [id number] 12/11/2013 09:14:36 12/11/2013 10:59:34 Spinal stenosis of lumbar region 22419230 Enthesopat hy of hip region 25315835 Lumbosacra l radiculitis 56098105 [id number] PAIN OFFICE [address] [facility] [place] [address] 12/27/2016 08:36:45 12/27/2016 14:33:08 Lumbosacral radiculitis 80836098 M54.17 Displaceme nt of lumbar intervertebral disc without myelopathy 43593371 M51.26 Lumbosacra 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 58929739 M47.817 Spinal charanjit nosis of lumbar region 24122738 M48.06 Long-term drug therapy 239745301 Z79.02 [id number] Sepideh Kuo MD PAIN OFFICE [address] [facility] [place] [id number] 01/04/2017 14:54:03 01/06/2017 08:36:22 Lumbosacral radiculitis 07334587 M54.17 Displaceme nt of lumbar intervertebral disc without myelopathy 98999848 M51.26 Lumbosacra 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 73787592 M47.817 Spinal charanjit nosis of lumbar region 49011586 M48.06 Long-term drug therapy 647753176 Z79.02 Health Concerns Section Related Observation LastModified by Organization Detai ls LastModified Time None Recorded Concern Status LastModified by Organization Details LastModified Time None Recorded Advance Directives Directive None Recorded Payers Encounter Date Sequence Insurance Name Policy Number Policy Smart Covered Member ID Smart Member ID Guarantor Name 04/04/2013 1 [place] [facility] Nato Goodman [id number] Nato Goodman 12/06/2013 1 [place] [facility] Nato Goodman [id number] Nato Goodman 12/11/2013 1 [place] [facility] Nato Goodman [id number] Nato Goodman 12/27/2016 1 [facility] (MEDICAID HMO) [id number] Nato Goodman [id number] Nato Goodman 01/04/2017 1 [facility] (MEDICAID HMO) [id number] Nato Godoman [id number] Nato Goodman Notes Date Note Type Note [...] 1 years old. Sepideh Kuo MD [address] [facility] , [address], [place], [address], [facility] 04/05/2013 14:55:52 12/06/2013 text/html [...] or bowel incontinence. Sepideh Kuo MD [address] [facility] , [address], [place], [address], [facility] 12/12/2013 13:30:10 12/11/2013 text/html She is here for a trial of right trochanteric bursal injection under lfuorscopic guidance. She has stopped her coumadin. INR is 1.2 this morning. Sepideh Kuo MD [address] [facility] , [address], [place], [address], [facility] 12/12/2013 13:32:15 12/27/2016 text/html [...] for grocery shopping. Sepideh Kuo MD [address] [facility] , [address], [place], [address], [facility] 12/31/2016 12:00:00 01/04/2017 text/html She is here for a lumbar epidural steroid injection under fluoroscopic guidance. She has stopped coumadin for 5 days and her INR is 1.0 this morning. Sepideh Kuo MD [address] [facility] [address], [place], [address], [facility] Pain [facility] 01/13/2017 16:01:57 OBGyn Episode No OBEpisode recorded.
--- OUTSIDE RECORDS SUMMARY | 2024-12-31 07:18 | XMS_ITS | Clinical Summary ---
Author Organization [facility] Address [address] [place] [address] 7[address] [place] [address] Care Team Providers Care Jet Handler Name Role Phone Unavailable Primary Care Provider Unavailabl e Allergies No known active allergies Medications Eliquis 5 MG tablet Take 5 mg by mouth 2 times daily. 11/12/20 22 Active albuterol (2.5 MG/3ML) 0.083% nebulizer solution INHALE 1 AMPULE USING A NEBULIZER FOUR TIMES DAILY NEEDED FOR WHEEZING OR SHORTNESS OF BREATH 12/31/19 23 Active Proventil HFA 108 (90 Base) MCG/ACT inhaler INHALE 2 PUFFS EVERY 6 HOURS NEEDED FOR WHEEZING OR SHORTNESS OF BREATH. 12/31/19 23 Active atorvastatin (Lipitor) 80 MG tablet Take 80 mg by mouth in the morning. 12/31/19 23 Active Lumigan 0.01 % ophthalmic solution PONGA INGRIS GOTA EN LOS DOS OJOS AL ACOSTARSE 02/05/20 22 Active cholecalciferol (Vitamin D-3) 1.25 MG (70403 UT) capsule cholecalciferol (vitamin D3) 1,250 mcg (50,000 unit) capsule TAKE 1 CAPSULE BY MOUTH ONCE A WEEK Active escitalopram (Lexapro) 20 MG tablet escitalopram 20 mg tablet TAKE 1 TABLET BY MOUTH EVERY MORNING Active gabapentin (Neurontin) 400 MG capsule 2 times daily. Acti ve lithium ER (Eskalith) 450 MG 12 hr tablet TAKE 2 TABLETS BY MOUTH EVERY MORNING DIRECTED 12/31/19 23 Active ondansetron ODT (Zofran-ODT) 4 MG disintegrating tablet ondansetron 4 mg disintegrating tablet DISSOLVE 1 TABLET BY MOUTH EVERY 8 HOURS NEEDED FOR NAUSEA/VOMITING POR 10 D Active venlafaxine XR (Effexor XR) 150 MG 24 hr capsule Take 150 mg by mouth in the evening. 12/31/19 23 Active zolpidem (Ambien) 10 MG tablet Take 10 mg by mouth at bedtime. 12/31/19 23 Active warfarin (Coumadin) 3 MG tablet TOME 3 O 4 TABLETAS POR VIA ORAL TODOS LOS CRAFT 07/09/20 16 Active warfarin (Coumadin) 5 MG tablet TAKE 2 TABLETS BY MOUTH DAILY DIRECTED Active traMADol (Ultram) 50 MG tablet TOME INGRIS TABLETA POR V A ORAL DOS VECES AL D A CUANDO SEA NECESARIO FOR PAIN Active oxyCODONE (Roxicodone) 5 MG immediate release tablet Active methocarbamol (Robaxin) 750 MG tablet TAKE 1 TABLET BY MOUTH EVERY 8 HOURS NEEDED MUSCLE PAIN 07/21/20 23 Active gabapentin (Neurontin) 600 MG tablet Take 1 tablet by mouth 3 times daily. 07/09/20 16 Active ergocalciferol (Vitamin D2) 1.25 MG (59181 UT) capsule Take 1 capsule by mouth 1 (one) time per week. 07/29/20 23 Active DULoxetine (Cymbalta) [address] capsule Take 1 capsule by mouth in the morning. Active cyclobenzaprine (Flexeril) 10 MG tablet 1 tab at bedtime 05/02/20 13 Active amitriptyline (Elavil) 25 MG tablet Take 1 tablet by mouth at bedtime. Active acetaminophen (Tylenol) 500 MG tablet Take 1 tablet (500 mg) by mouth every 6 (six) hours if needed for mild pain for up to 20 doses. 20 tablet 09/13/20 24 Active cyanocobalamin (Vitamin B-12) 1000 MCG tablet Take 1 tablet by mouth Once per day. 09/04/20 24 Active LORazepam (Ativan) 2 MG tablet TAKE 1 TABLET BY MOUTH EVERY DAY AT 5 IN THE EVENING 09/25/20 24 Active lurasidone (Latuda) 80 MG tablet Take 80 mg by mouth at bedtime. 09/25/20 24 Active omeprazole (PriLOSEC) [address] capsule TAKE 1 CAPSULE BY MOUTH EVERY DAY NEEDED FOR HEARTBURN 07/05/20 24 Active Arnuity Ellipta 100 MCG/ACT inhaler 1 puff in the morning. Active Rocklatan 0.02-0.005 % solution PONGA INGRIS GOTA EN LOS DOS OJOS TODOS LOS D POR LA NOCHE Active amoxicillin (Amoxil) 500 MG capsule Take 1 capsule (500 mg) by mouth every 8 (eight) hours for 7 days. 21 capsule 12/05/19 25 2024 Active Problems Problem Noted Date Diagnosed Date Lamellar macular hole of right eye 10/31/2024 Enthesopathy of hip region 09/13/2024 Lumbosacral radiculitis 09/13/2024 Osteoarthritis of midtarsal joint of left foot 1 Osteoarthritis of midtarsal joint of right foot 09/13/2024 Severe obesity 09/13/2024 Spinal stenosis of lumbar region 09/13/2024 Dental caries 09/13/2024 Symptomatic irreversible pulpitis 09/13/2024 Dental abscess 01/10/2024 Missing teeth, acquired 01/10/2024 Localized gingival recession 01/10/2024 Dental calculus 01/12/2023 Encounters Date Type Department Care Team Description 12/28/2024 Telephone [facility]ULT D[facility] [address] [place] [address] Yuliana Jung DDS referral to [facility] 12/05/2024 1:00 PM EST Office Visit [facility] [address] [place] [address] Yuliana Jung, TIA Retained dental root (Primary Dx) 10/10/2024 11:00 AM EST Office Visit [facility] OPTOMET[facility] [address] [place] [address] Hiren, Maria A, OD Lamellar macular hole of right eye (Primary Dx); Vitreomacular traction syndrome of right eye; Hypertensive retinopathy of both eyes; Primary open angle glaucoma of both eyes, unspecified glaucoma stage; Combined forms of age-related cataract of both eyes; Presbyopia 10/10/2024 Travel from Last 3 Months Social History Tobacco Use Types Packs/Day Years Used Date Smoking Tobacco: Never Smokeless Tobacco: Never Tobacco Cessation:Counseling Given: Not Answered Alcohol Use Standard Drinks/Week Comments Never 0 (1 standard drink = 0.6 oz pur e alcohol) Comments Unknown Sex and Gender Information Value Date Recorded Sex Assigned at Female 09/20/2022 10:15 AM EDT Legal Sex Female 10:15 AM EDT Gender Identity Female 09/20/2022 10:15 AM EDT Sexual Orientation Choose not to disclose 2021 10:15 AM EDT Last Filed Vital Signs Vital Sign Reading Time Taken Comments Blood Pressure 160/84 09/13/2024 11:24 AM EDT Pulse 74 01/10/2024 10:14 AM EST Temperature - - Respiratory Rate - - Oxygen Saturation - - Inhaled Oxygen Concentration - - Weight - - Height - - Body Mass Index - - Plan of Treatment Upcoming Encounters Date Type Department Care Team (Late st Contact Info) Description 01/30/2025 8:00 AM EDT Office Visit [facility] [address] [place] [address] Nona Montanez Health Maintenance Due Date Last Done Comments CT Colonography 1960 Colonoscopy 1960 Colorectal Cancer Screening 1958 Depression Screening 1958 FIT DNA/Cologuard 1958 FIT 1960 FOBT 1960 Lipid Panel 1960 SDOH Screening 1960 Sigmoidoscopy 1958 Alcohol/Substance Use Screening 1970 Hepatitis C Screening 1976 Mammogram 1998 Zoster Vaccines (1 of 2) 2008 Pneumococcal Vaccine: 50+ Years (2 of 2 - PCV) 11/09/2020 11/09/2019 Dental X-Ray: Full Mouth 03/14/2024 03/13/2021 Dental Oral Exam 07/11/2024 01/10/2024, 11/09/2022 Dental Prophylaxis 07/11/2024 01/10/2024, 01/12/2023 COVID-19 Vaccine ( - 2023-2 5 season) 2024 04/21/2021, 03/25/2021 Dental X-Ray: Bitewings 01/11/2025 01/10/20, 12/14/2022, 11/09/2022 Tobacco Screening 10/29/2025 10/29/2024 DTaP/Tdap/Td Vaccines (3 - T d or Tdap) 08/16/2031 08/16/2021, 06/09/1999 RSV Patients and Patients Aged 60 years or older (1 - 1-dose 75+ series) 2033 Influenza Vaccine Completed 09/03/2024, 09/06/2022 HIB Vaccines Aged Out No longer eligi ble based on patient's age to complete this topic HPV Vaccines Aged Out No longer eligi ble based on patient's age to complete this topic Hepatitis A Vaccines Aged Out No long er eligible based on patient's age to complete this topic Hepatitis B Vaccines Aged Out No long er eligible based on patient's age to complete this topic IPV Vaccines Aged Out No longer eligi ble based on patient's age to complete this topic Meningococcal Vaccine Aged Out No meghan alonso eligible based on patient's age to complete this topic RSV under 20 months Aged Out No longe r eligible based on patient's age to complete this topic Rotavirus Vaccines Aged Out No longer eligible based on patient's age to complete this topic Procedures Procedure Name Priority Date/Time Associated Diagnosis Comments ADJUNCTIVE GENERAL SERVICES - PROFESSIONAL VISITS - CASE PRESENTATION, SUBSEQUENT TO DETAILED AND EXTENSIVE TREATMENT PLANNING Routine 12/05/2024 1:00 PM EST Retained dental root 14 ADJUNCTIVE GENERAL SERVICES - UNCLASSIFIED TREATMENT - PALLIATIVE TREATMENT OF DENTAL PAIN - PER VISIT Routine 12/05/2024 1:00 PM EST Retained dental root OCT, RETINA - OU - BOTH EYES Routine 10/10/2024 11:00 AM EST Lamellar macular hole of right eye Full PROPHYLAXIS - ADULT Routine 024 10:00 AM EST Dental calculus BITEWINGS - 4 RADIOGRAPHIC IMAGES Routine 01/10/2024 10:00 AM EST Dental abscess Dental calculus Missing teeth, acquired Localized gingival recession PERIODIC ORAL EVALUATION - ESTABLISHED PATIENT Routine 01/10/2024 10:00 AM EST from Last 3 Months or Most Recently Relevant to Health Maintenance Insurance [facility]
--- OUTSIDE RECORDS SUMMARY | 2024-12-31 07:18 | XMS_ITS ---
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 Generated for Herminioi hema/Neftali/eTransmitting on:?12/31/2024 07:17 AM EST
--- OUTSIDE RECORDS SUMMARY | 2024-12-31 07:18 | XMS_ITS ---
Author Organization [facility] Garett shira [place] Address [address] [place] [address] Care Team Providers Care Masseur/Masseuse Name Role Phone Denise Greco MDh Primary Care Provider Darin Gonzalez Unavailable [phone] Allergies No Known Allergies REASON FOR VISIT [...] as needed Orally Once a day Active Buckner Carbonate ER 450 MG 1 tablet at [...] Osteoarthritis of midtarsal joint of left foot (4579984015002175 ) Osteoarthritis of midtarsal joint of left foot (M19.072) Active confirmed Problem Osteoarthritis of midtarsal joint of right foot (1334690238552206 ) Osteoarthritis of midtarsal joint of right foot (M19.071) Active confirmed Vital Signs Height 5 ft 2 in in 08/09/2024 Weight 227 lbs 08/09/2024 BMI 41.51 kg/m2 08/09/2024 Encounters Encounter Location Date Provider Diagnosis [facility] [place] [address] [address] 08/09/2024 Darin Oriana Pain in left foot [...] Reason: Progress Notes * Jarocho GAMBOAB:[birth year] (64 yo F)Acc No.[id number]:08/09/2024 Progress Notes Patient:?Nato GAMBOA Provider:?Darin Gastelum DPM :1960???Age:63 Y???Sex:Female D ate:08/09/2024 [facility] Pcp:Glynn Greco MD Subjective: * Chief Complaints: [...] alcohol in the past year??No ?Points?0 ?Interpretation?Negative ???Miscellaneous:?Caffeine: no. ?Children: yes, 3. ?Exercise: no. ?Marital status: . ?Occupation: disabled. * Medications:?TakingDorzolami de-Timolol Terconazole Flovent HFA Amoxicillin 500 MG Capsule 1 capsule Orally every 8 hrs Benzonatate 200 MG Capsule 1 capsule as needed Orally Three times a day Ketorolac Tromethamine 0.5 % Solution 1 drop into affected eye as needed Ophthalmic Four times a day Latanoprost 0.005 % Solution 1 drop into affected eye in the evening Ophthalmic Once a day Nitrofurantoin Monohyd Macro 100 MG Capsule 1 capsule with food Orally every 12 hrs predniSONE 20 MG Tablet 1 tablet Orally Once a day Rocklatan 0.02-0.005 % Solution 1 drop into affected eye Ophthalmic Once a day traMADol HCl 50 MG Tablet 1 tablet as needed Orally Once a day Atorvastatin Calcium 80 MG Tablet 1 tablet Orally Once a day Vitamin B12 1000 MCG Tablet Extended Release 1 tablet Orally Once a day eliquis 5 mg Tablet Lurasidone HCl 80 MG Tablet 1 tablet in the evening with food Orally Once a day Omeprazole 20 MG Capsule Delayed Release 1 capsule 30 minutes before morning meal Orally Once a day Venlafaxine HCl ER 150 MG Capsule Extended Release 24 Hour 1 capsule with food Orally Once a day Vitamin D2 Zolpidem Tartrate 10 MG Tablet 1 tablet at bedtime as needed Orally Once a day Acetaminophen 500 MG Capsule 1 capsule as needed Orally every 6 hrs Albuterol Sulfate HFA 108 (90 Base) MCG/ACT Aerosol Solution 1 puff as needed Inhalation every 4 hrs Gabapentin 600 MG Tablet 1 tablet Orally Once a day Buckner Carbonate ER 450 MG Tablet Extended Release 1 tablet at bedtime Orally Once a day LORazepam 0.5 MG Tablet 1 tablet at bedtime as needed Orally Once a day Taking Dorzolamide-Timolol Taking Terconazole Taking Flovent HFA Taking Amoxicillin 500 MG Capsule 1 capsule Orally every 8 hrs Taking Benzonatate 200 MG Capsule 1 capsule as needed Orally Three times a day Taking Ketorolac Tromethamine 0.5 % Solution 1 drop into affected eye as needed Ophthalmic Four times a day Taking Latanoprost 0.005 % Solution 1 drop into affected eye in the evening Ophthalmic Once a day Taking Nitrofurantoin Monohyd Macro 100 MG Capsule 1 capsule with food Orally every 12 hrs Taking predniSONE 20 MG Tablet 1 tablet Orally Once a day Taking Rocklatan 0.02- 0.005 % Solution 1 drop into affected eye Ophthalmic Once a day Taking traMADol HCl 50 MG Tablet 1 tablet as needed Orally Once a day Taking Atorvastatin Calcium 80 MG Tablet 1 tablet Orally Once a day Taking Vitamin B12 1000 MCG Tablet Extended Release 1 tablet Orally Once a day Taking eliquis 5 mg Tablet Taking Lurasidone HCl 80 MG Tablet 1 tablet in the evening with food Orally Once a day Taking Omeprazole 20 MG Capsule Delayed Release 1 capsule 30 minutes before morning meal Orally Once a day Taking Venlafaxine HCl ER 150 MG Capsule Extended Release 24 Hour 1 capsule with food Orally Once a day Taking Vitamin D2 Taking Zolpidem Tartrate 10 MG Tablet 1 tablet at bedtime as needed Orally Once a day Taking Acetaminophen 500 MG Capsule 1 capsule as needed Orally every 6 hrs Taking Albuterol Sulfate HFA 108 (90 Base) MCG/ACT Aerosol Solution 1 puff as needed Inhalation every 4 hrs Taking Gabapentin 600 MG Tablet 1 tablet Orally Once a day Taking Buckner Carbonate ER 450 MG Tablet Extended Release 1 tablet at bedtime Orally Once a day Taking LORazepam 0.5 MG Tablet 1 tablet at bedtime as needed Orally Once a day Not-Taking/PRNAmoxicillin-Pot Clavulanate 875-125 MG Tablet 1 tablet Orally every 12 hrs Arnuity Ellipta 100 MCG/ACT Aerosol Powder Breath Activated 1 puff Inhalation Once a day Chlorhexidine LORazepam 2 MG Tablet 1 tablet at bedtime as needed Orally Once a day oxyCODONE HCl 5 MG Tablet 1 tablet as needed Orally every 6 hrs Medication List reviewed and reconciled with the patientNot-Taking/PRN Amoxicillin-Pot Clavulanate 875-125 MG Tablet 1 tablet Orally every 12 hrs Not-Taking/PRN Arnuity Ellipta 100 MCG/ACT Aerosol Powder Breath Activated 1 puff Inhalation Once a day Not-Taking/PRN Chlorhexidine Not- Taking/PRN LORazepam 2 MG Tablet 1 tablet at bedtime as needed Orally Once a day Not- Taking/PRN oxyCODONE HCl 5 MG Tablet 1 tablet as needed Orally every 6 hrs Medication List reviewed and reconciled with the patient [...] office visit today.?ORIENTED:?person, place, and time.?Vascular: ?DP PULSES (B):?1/4 , LEFT , 2/4 , RIGHT.?PT PULSES (B):?2/4 , RIGHT , 1/4 , LEFT.?CAPILLARY FILL TIME:?immediate, all digits, B/L.?TROPHIC CONDITION-TEXTURE/ELASTICITY/TURGOR/HAIR GROWTH (B):?normal, B/L.?TEMPERTURE GRADIENT (C):?warm to cool, proximal to distal, B/L.?PIGMENTATION:?normal, B/L.?EDEMA (C):?absent, B/L.?Dermatologic: ?SKIN FINDINGS:?Skin exam reveals normal texture, elasticity, and turgor. There are no masses. The interspaces are clear.? Assessment: * Assessment: 1.?Pain in left ankle and neelima ints of left foot - M25.572???2.?Pain in left foot - M79.672 (Primary)???3.?Bursitis of left foot - M77.52???4.?Osteoarthritis of midtarsal joint of left foot - M19.072???Specify :Dx New problem, Prognosis Uncertain (4),Acute problem, Complicated w/ Multiple Tx Options(4)???5.?Pain in right foot - M79.671???6.?Pain in right ankle and joints of right foot - M25.571???7.?Bursitis of right foot - M77.51? ?8.?Osteoarthritis of midtarsal joint of right foot - M19.071???Specify :Dx New problem, Prognosis Uncertain (4),Acute problem, Complicated w/ Multiple Tx Options(4)??? Plan: * Treatment: 2.?Pain in right foot?Imaging: X ray : Foot, right 3V * Procedure Codes:?75197 X-RAY EXAM OF LEFT FOOT 3V, Modifiers: 26 , [id number] X-RAY EXAM OF RIGHT FOOT 3V, Modifiers: [...] exercise to failure, expense, systemic complications, infection, [id number], prolongued postop course. Patient questions re: the various treatment options available, their successes and potential failures, and intermediate frame tender effects were discussed and the answers were [...] verbally confirmed to understanding the information discussed.? ??Screening/Special Tests:?Fall Risk?Screening:?No falls in the past year ?FALLS: Screening for Future Fall Risk?Have you had any falls with injury in the past year??No * Follow Up:?prn * Images: * Sign off status: Completed true * Provider:?Darin Gastelum DPM Date:?2023 Generated for Elke garrido/Neftali/Kirill on:?12/31/2024 07:18 AM EST History and Physical Notes * [...]
--- OUTSIDE RECORDS SUMMARY | 2024-12-31 07:18 | XMS_ITS | Encounter Summary ---
Author Organization [email or web address] Address [address] [place] [address] [address] [place] [address] Care Team Providers Care Port Engineer Name Role Phone Unavailable Primary Care Provider Unavailabl e Reason for Visit * Reason Onset Date Comments emmanuel HOFF 03/12/2024 Encounter Details Date Type Department Care Team ([facility] st Contact Info) Description 03/12/2024 Telephone [facility] [address] [place], [place] [phone] Anson Ledezma, AZRA [address] [place], [place] [phone] emmanuel PA Social History Tobacco Use Types Packs/Day Years [...] * Telephone Encounter - Matilde Montez - 03/12/2024 9:23 AM EDT Patient states that she spoke to someone in office about a month ago and was told that PA for crownwas to be submitted to see if it would be approved and has not heard back. No PA scanned in chart. Update?? Pls reach out to patient DR documented in this encounter Plan of Treatment Upcoming Encounters Date Type Department Care Team (Late st Contact Info) Description 01/30/2025 8:00 AM EDT Office Visit [facility] [address] [place] [address] Nona Montanez documented as of this encounter Visit Diagnoses Not on filedocumented in this encounter
[2024-12-31 07:29] LABS: MANUAL DIFF FLAG NO
[2024-12-31 07:45] LABS: Basophils Percent Auto 0.5 % (0-2); Eosinophils Absolute Auto 0.1 X10*3/uL (0.0-0.4); Eosinophils Percent Auto 0.8 % (0-4); Hematocrit 36.2 % (37.0-47.0); Hemoglobin 11.6 g/dl (12.0-16.0); Imm Gran Abs Auto 0.02 X10*3/uL (0.00-0.03); Imm Gran Pct Auto 0.3 % (0.0-0.4); Lymphocytes Absolute Auto 3.5 X10*3/uL (1.2-4.9); Lymphocytes Percent Auto 47.9 % (20-40); Mean Corpuscular Hemoglobin 26.9 pg (27.0-33.0); Mean Corpuscular Volume 83.8 fL (80.0-98.0); Mean Platelet Volume 10.1 fL (9.4-12.3); Monocytes Absolute Auto 0.5 X10*3/uL (0.1-1.2); Monocytes Percent Auto 6.8 % (2-11); Neutrophils Absolute Auto 3.2 x10*3/uL (2.0-8.3); Neutrophils Percent Auto 43.7 % (45-73); Platelet Count 292 X10*3/uL (160-400); Red Blood Count 4.32 X10*6/uL (4.20-5.50); Red Cell Distribution Width 14.2 % (11.0-16.0); White Blood Count 7.3 X10*3/uL (4.8-10.8)
[2024-12-31 08:20] LABS: Appearance Urine Clear; Color Urine Yellow; Glucose Urine UA Negative (Negative); Leukocyte Esterase Urine Negative (Negative); Nitrite Urine Negative (Negative); PH 5.5 (5.0-9.0); Specific Gravity - Urine >= 1.030 (1.005-1.025); UMIC TRIGGER UACC YES; Urine Blood Negative (Negative); Urine Ketones Trace mg/dL (Negative); Urine Protein 30 (1+) mg/dL (Neg-Trace)
[2024-12-31 08:22] LABS: Alanine Aminotransferase 23 U/L (0-31); Albumin Level 4.1 g/dL (3.5-5.0); Alkaline Phosphatase 79 U/L (39-117); Anion Gap 13 (12-20); Aspartate Amino Transferase 39 U/L (5-31); Bilirubin Total 0.5 mg/dL (0.0-1.0); Blood Urea Nitrogen 10 mg/dL (9-16); Calcium 9.2 mg/dL (8.4-10.2); Carbon Dioxide 21 mmol/L (22-29); Chloride 111 mmol/L (96-108); Cholesterol 174 mg/dL (<200); Estimated Glomerular Filt Rate > 60; Glucose Fasting 106 mg/dL (60-99); HDL Cholesterol 44 mg/dL (>40); LDL Cholesterol Calculated 107 mg/dL (<100); Potassium 3.7 mmol/L (3.3-5.1); Sodium 141 mmol/L (135-145); Total Protein 7.8 g/dL (6.5-8.0); Triglycerides 119 mg/dL (<150)
[2024-12-31 08:31] LABS: Free T4 (Free Thyroxine) 1.05 ng/dL (0.71-1.85); Thyroid Stimulating Hormone 4.48 uIU/mL (0.32-4.0); Vitamin D 25-OH Total 21.5 ng/mL (>30)
[2024-12-31 08:35] LABS: WBC Urine 0-5 /HPF (0-5)
[2024-12-31 08:36] LABS: Bacteria Urine Trace (None Seen); RBC Urine 0-2 /HPF (0-2)
[2024-12-31 08:37] LABS: Hyaline Casts Urine 0-2 /LPF (0-2)
[2024-12-31 08:44] LABS: Folate 14.2 ng/mL (> or = 4.0); Vitamin B12 295 pg/mL (200-900)
== END 2024-12-31 07:16 | disposition home or self-care (01) ==
LOC: HO.LAB 07:15
PROVIDERS: PCP Internal Medicine; Visit Provider Internal Medicine
DX: I80.209 Phlebitis and thrombophlebitis of unspecified deep vessels of unspecified lower extremity (principal); D64.9 Anemia, unspecified; E78.00 Pure hypercholesterolemia, unspecified; E03.9 Hypothyroidism, unspecified; E53.8 Deficiency of other specified B group vitamins; E55.9 Vitamin D deficiency, unspecified
CPT/HCPCS: 36415; 80053; 80061; 81001; 82306; 82607; 82746; 84439; 84443; 85025

== ENCOUNTER 2025-01-04 10:14 | Outpatient (AMB) | payer OTHER, SELFPAY ==
[2025-01-04 10:51] VITALS: BP 124/68; PULSE 54; TEMP 36.6; O2SAT 98; BMI 36.1
--- NOTE | 2025-01-04 10:51 | A.OFFPC_ITS ---
Vital Signs 01/04/25 10:51 Height 5 ft 5 in Weight 217 lb 4 oz BMI 36.1 BP 124/68 Blood Pressure Location Lt brachial Position Sitting Pulse 54 Pulse Source Pulse Oximeter Temp 97.8 F Temp Source Temporal Artery Scan Pulse Oximetry (%) 98 Oxygen Delivery Method Room Air Intake Visit Reasons: 4mth f/u Enrollment Services Vice President Required: Yes Enrollment Services Vice President Language: Representative Government Relations Name: Cm ([id number]) Information Interpreted: non-clinical & clinical Accompanied by: Self / Same As Patient Allergies No Known Allergies Allergy (Verified 01/04/25 11:29) Medication List - Last Reconciled 01/04/25 by Glynn Greco MD acetaminophen 325 mg PO DAILY PRN albuterol sulfate 2.5 mg inhalation QID PRN albuterol sulfate 90 mcg/actuation (Ventolin HFA) 2 puffs inhalation Q6H PRN 30 days apixaban (Eliquis) 5 mg PO BID atorvastatin 80 mg PO DAILY 90 days [COMPRESSION STOCKINGS (pantyhose) As directed] cyanocobalamin (vitamin B-12) 1,000 mcg PO DAILY 90 days dorzolamide-timolol 22.3-6.8 mg/mL 1 drp ophthalmic (eye) DAILY ergocalciferol (vitamin D2) 1,250 mcg PO QWEEK 3 months Flovent HFA 220 mcg/actuation (fluticasone propionate) 2 puffs inhalation BID 30 days NS fosfomycin tromethamine 3 grams PO Q3D 6 days gabapentin 600 mg PO TID latanoprost 0.005% 1 drp ophthalmic (eye) BEDTIME lithium carbonate ER 450 mg PO BID lorazepam 0.5 mg PO QAM PRN lurasidone (Latuda) 40 mg PO BEDTIME omeprazole 20 mg PO DAILY PRN [rollator walker with seat As directed] terconazole 0.8% 1 appful vaginal BEDTIME 3 days tramadol 50 mg PO BID PRN 30 days venlafaxine ER 150 mg PO QPM zolpidem (Ambien) 10 mg PO BEDTIME Tobacco use date assessed: 01/04/25 Fall risk assessment: No Falls in past year Last assessed Fall Risk: 01/04/25 Dental Screening Dental Screen Date: 01/04/25 Did you have a dental visit in the last 12 months?: Yes Did you have a dental problem in the last 6 months where you did not have access to dental care?: No Was dental information given to patient?: Patient has dentist HPI 4mth f/u HPI Details Patient comes in today for her follow-up visit States that she continues to have trouble sleeping at night even with the current medications - she is currently taking Ambien and also takes Gabapentin around 9 PM before going to bed States that she would still wake up often around 2 AM in the morning and would have a hard time going back to sleep She denies any headaches or dizziness Denies any chest pains, no increased shortness of breath No nausea/vomiting, no abdominal pain No change in bowel habits noted She is still experiencing increased joint pains and states that she recently received some injection into her joint with only temporary relief She had her follow-up labs done a few days ago - to discuss her results [facility] Medical History Insomnia Morbid obesity with BMI of 40.0-44.9, adult Pure hypercholesterolemia Exertional dyspnea Fatigue Cough Lumbar degenerative disc disease Phlegmasia cerulea dolens Obstructive sleep apnea COVID-19 Hyperthyroidism Anxiety Obstructive sleep apnea Condyloma acuminata Vitamin B12 deficiency Lung granuloma Phlegmasia cerulea dolens Chronic low back pain Vitamin D deficiency Obesity (BMI 30-39.9) Fibromyalgia Depression Neuropathy DVT (deep venous thrombosis) Asthma DDD (degenerative disc disease) Surgical History S/P laparoscopic appendectomy History of embolectomy Benign neoplasm of neck History of colonoscopy History of bilateral tubal ligation History of carpal tunnel release History of bilateral oophorectomy S/P IVC filter Family History Father Liver cirrhosis Cancer Mother Heart attack Coronary artery disease Asthma Diabetes mellitus Brother No problems noted. Sister No problems noted. Sister No problems noted. Sister No problems noted. Sister No problems noted. Sister No problems noted. Sister No problems noted. Sister No problems noted. Sister No problems noted. Sister No problems noted. Sister No problems noted. Sister No problems noted. Sister No problems noted. Sister No problems noted. Paternal Aunt Colon cancer Son Histiocytosis Son No problems noted. Son No problems noted. Social History Household Members: Children Housing: Apartment Do you presently have visiting nurse or other home services: Yes ([employer]) Alcohol intake: former Patient Tobacco Use Status: Never used Tobacco e-Cigarette/Vaping Use: Never Used Second Hand Smoke Exposure: No Advance Directives Date on File: 08/15/23 service: No Current occupational status: disabled Current occupation: right hand Cognitive needs: Yes (cane) Hearing needs: No Vision needs: Yes Questionnaire PHQ-9 Over the last 2 weeks, how often have you been bothered by any of the following problems? 1. Little interest or pleasure in doing things: nearly every day 2. Feeling down, depressed, or hopeless: nearly every day 3. Trouble falling or staying asleep, or sleeping too much: several days 4. Feeling tired or having little energy: nearly every day 5. Poor appetite or overeating: not at all 6. Feeling bad about yourself - or that you are a failure or have let yourself or your family down: not at all 7. Trouble concentrating on things, such as reading the newspaper or watching television: nearly every day 8. Moving or speaking so slowly that other people could have noticed. Or the opposite - being so fidgety or restless that you have been moving around a lot more than usual: not at all 9. Thoughts that you would be better off or of hurting yourself in some way: not at all Total score: 13 Depression Screening Interpretation: Positive Depression Screening Follow-up: Existing condition and In treatment Depression Screening Done: Yes 31271 - PHQ-9 Billing: Yes Source: Developed by Drs. Jamel Hong, Carmen Villanueva, Gilbert Jara and colleagues, with an educational son from [employer]. Thrive Questionnaire Date Thrive assessed: 01/04/25 I am a: Patient What is your living situation today?: I have a steady place to live Within the past 12 months, did the food you bought not last and you didn't have the money to get more?: Never true Within the past 12 months, did you worry whether your food would run out before you got money to buy more?: Never true Do you have trouble paying for medicines?: No Do you have trouble getting transportation to medical appointments?: No Do you have trouble paying your heating and electricity bill?: No Do you have trouble taking care of your child, family member or friend?: No Do you have trouble with day-to-day activities such as bathing, preparing meals, shopping, managing finances, etc.?: No Are you currently unemployed and looking for a job?: No Are you interested in more education?: No Please select the resources that you would like help with: None Currently or been in a relationship where the following occur: No concerns reported THRIVE Score: 0 AUDIT C Alcohol Use Questionnaire (AUDIT-C) 1. How often do you have a drink containing alcohol?: Never 2. How many drinks containing alcohol do you have on a typical day when you are drinking?: 1 or 2 3. How often do you have six or more drinks on one occasion?: Never Total Score: 0 Score Reviewed/Action Taken: Yes FIDELIA-7 AMB Questionnaire FIDELIA-7 Date FIDELIA - 7 assessed: 01/04/25 Feeling nervous, anxious, or on edge: 0 = Not at all Not being able to stop or control worryin = Not at all Worrying too much about different things: 0 = Not at all Trouble relaxin = Not at all Being so restless that it is hard to sit still: 0 = Not at all Becoming easily annoyed or irritable: 0 = Not at all Feeling afraid as if something awful might happen: 0 = Not at all Total FIDELIA-7 score (0-4 normal; 5-9 mild; 10-14 moderate; 15-21 severe): 0 Source: Developed by Drs. Jamel Hong, Carmen Villanueva, Gilbert Jara and colleagues, with an educational son from [employer]. Review of Systems Const Denies chills, Reports difficulty sleeping, Reports fatigue (chronic), Denies fever(s) and Denies headache(s) ENT Denies dysphagia, Denies dizziness, Denies otalgia, Denies headache(s), Reports neck pain, Denies odynophagia and Denies sore throat Card Denies chest pain, Denies palpitations and Reports dyspnea on exertion (mild; chronic) Resp Denies chest congestion, Reports cough (occasional, non-productive), Reports dyspnea on exertion (mild; chronic) and Denies wheezing GI Denies abdominal pain, Denies constipation, Denies dysphagia, Denies heartburn, Reports loose stools (lately - s/p cholecytectomy; stool sometimes (+) mucus), Denies nausea, Denies odynophagia and Denies vomiting Denies difficulty voiding, Denies nocturia, Denies dysuria (but sometimes c/o bladder pressure ), Reports urinary incontinence, Denies urinary urgency and Denies vaginal discharge Musc Details: increasing pain over the top of both feet lately Reports back pain, Reports arthralgias (involving multiple joints - chronic; in the right knee lately), Reports joint swelling (in the right knee), Reports neck pain and Reports stiffness Skin/Breast Denies rash Neuro Denies dizziness, Denies headache(s) and Reports paresthesias (over the lateral aspect of the right thigh - on and off) Psych Denies anxiety Endo Reports fatigue (chronic) and Denies palpitations Aller/Immun Denies wheezing Physical exam (Primary Care) Vital Signs: Last Vital Signs Temp 97.8 F 01/04/25 10:51 Pulse 54 01/04/25 10:51 BP 124/68 01/04/25 10:51 Pulse Ox 98 01/04/25 10:51 Oxygen Delivery Method Room Air 01/04/25 10:51 BMI result Body Mass Index 36.1 Tobacco/Smoking Status: Tobacco use Status Tobacco use date assessed 01/04/25 01/04/25 10:53 Patient Tobacco Use Status Never used Tobacco 01/04/25 10:53 e-Cigarette/Vaping Use Never Used 01/04/25 10:53 PHQ-9: PHQ-9 Score PHQ-9: Total score 13 01/04/25 11:30 Depression Screening Interpretation: Positive Depression Screening Follow-up: Existing condition and In treatment Thrive Assessment: Date of Thrive Assessment Date Thrive assessed 01/04/25 01/04/25 10:53 Currently or been in a relationship where the following occur: No concerns reported Const General: no acute distress and alert HENMT Ears: TM's normal bilaterally and EAC's normal Throat: Yes posterior oropharynx normal and Yes tonsils normal (no TP congestion) Neck Neck: No lymphadenopathy Thyroid: Thyroid normal Resp Auscultation: clear to auscultation bilaterally, no rales, no wheezes and diminished lung sounds (slightly) bilateral Cardio Rate: regular rate Rhythm: regular rhythm Heart sounds: no murmurs GI Palpation (GI): Soft to palpation and nontender Auscultation: normal bowel sounds General: Yes no CVA tenderness Back/Spine/Pelvis Back: no CVA tenderness Cervical Spine: cervical muscular tenderness (bilateral) Thoracic/Lumbar Spine: paraspinal muscle tenderness bilaterally and lumbar spinal tenderness (mild) Skin Rashes: no rashes Extrem General: No clubbing, No cyanosis and Yes edema (1+ bipedal edema) Right upper extremity: wrist Details: tenderness Location: of the volar wrist; Phalen's positive Right lower extremity: knee Details: tenderness and swelling (mild) Location: of the patella and of the pre-patellar area Results Reviewed Results Reviewed: Laboratory Tests 12/31/24 12/31/24 07:24 07:27 WBC 7.3 Hgb 11.6 L Hct 36.2 L Plt Count 292 Sodium 141 Potassium 3.7 Creatinine 0.86 Estimated GFR > 60 Fasting Glucose 106 H Calcium 9.2 AST 39 H ALT 23 Triglycerides 119 Cholesterol 174 LDL Cholesterol, Calc 107 H HDL Cholesterol 44 Vitamin B12 295 25-OH Vitamin D Total 21.5 L TSH 4.48 H Free T4 1.05 Ur Specific [place] >= 1.030 H Urine Protein 30 (1+) H Urine Glucose (UA) Negative Urine Blood Negative Urine Nitrite Negative Ur Leukocyte Esterase Negative Coding Level of Care Code Est Pt Level 4 (40687) Diagnoses Pure hypercholesterolemia E78.00 Elevated blood pressure reading R03.0 Moderate persistent asthma with acute exacerbation J45.41 Asthma complication type: with acute exacerbation Asthma persistence: persistent Asthma severity: moderate Obstructive sleep apnea G47.33 Phlegmasia cerulea dolens, unspecified laterality I80.209 Laterality: unspecified laterality Primary osteoarthritis of right knee M17.11 Osteoarthritis type: primary Fibromyalgia M79.7 Neuropathy G62.9 Carpal tunnel syndrome of right wrist G56.01 Vitamin B12 deficiency E53.8 Vitamin D deficiency E55.9 Insomnia, unspecified type G47.00 Insomnia type: unspecified Anxiety F41.9 Episode of recurrent major depressive disorder, unspecified depression episode severity F33.9 Active/Remission status: currently active Depression Type: major depressive disorder Major depression episode severity: unspecified Major depression recurrence: recurrent Obesity (BMI 30-39.9) E66.9 Additional Codes PHQ-9 - 02376 - PHQ-9 Billing: Yes ([id number]) Assessment & Plan Assessment & Plan (1) Pure hypercholesterolemia: Code(s): E78.00 - Pure hypercholesterolemia, unspecified Category: Medical Plan: Results of her labs done a few days ago reviewed and discussed with patient - patient is advised that her cholesterol levels have increased slightly from previous Patient admits to skipping her cholesterol meds at times Reinforced low cholesterol diet Continue Atorvastatin 80 mg QD Will recheck her labs and fasting lipids in 4 months for follow-up (2) Elevated blood pressure reading: Code(s): R03.0 - Elevated blood-pressure reading, without diagnosis of hypertension Category: Medical Plan: Her BP today remains well-controlled Reinforced low sodium diet Patient is reminded to continue monitoring her BP regularly (3) Asthma: Comment: As per spirometry. There is no significant obstructive disorder, So it seems that she has only mild intermittent bronchial asthma. Explained to her through the applied anthropologist and she understands well. TX : No need to use Flovent. Use ProAir 2 puffs Q 4-6 hours p.r.n., but avoid to use every day. Code(s): J45.909 - Unspecified asthma, uncomplicated Category: Medical Qualifiers: Asthma complication type: with acute exacerbation Asthma persistence: persistent Asthma severity: moderate Qualified Code(s): J45.41 - Moderate persistent asthma with (acute) exacerbation Plan: Appears controlled at present Continue Flovent HFA Aerosol 220 MCG/ACT 2 Inhalations BID and Ventolin HFA 108 (90 Base) MCG/ACT, 2 puffs every 6 hrs as needed She has been following up with pulmonary (Dr. Grey) regularly for her asthma but has not been seen since late 2021 and has been advised to reach out to pulmonary to schedule a follow up appt with them ALFRED (4) Obstructive sleep apnea: Code(s): G47.33 - Obstructive sleep apnea (adult) (pediatric) Category: Medical Plan: She has not been able to use her CPAP device for a while now due to poor mask fit Follow up with Sleep Medicine as scheduled (5) 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 - goes to the Coumadin clinic for PT/INR monitoring Code(s): I80.209 - Phlebitis and thrombophlebitis of unspecified deep vessels of unspecified lower extremity Category: Medical Qualifiers: Laterality: unspecified laterality Qualified Code(s): I80.209 - Phlebit is and thrombophlebitis of unspecified deep vessels of unspecified lower extremity Plan: Continue Eliquis 5 mg BID She was on Warfarin Sodium Tablet, 5 MG, 2 tablets QD in the past but was switched over to Eliquis 5 mg BID by hematology a couple of years ago Follow up with hematology as scheduled (6) Osteoarthritis of right knee: Code(s): M17.11 - Unilateral primary osteoarthritis, right knee Category: Medical Qualifiers: Osteoarthritis type: primary Qualified Code(s): M17.11 - Unilateral primary osteoarthritis, right knee Plan: Right knee x-rays done a few months ago in August 2024 revealed (+) mild degenerative changes of the right knee, with no acute fracture or dislocation noted Patient states that she has received some cortisone injection into her knee a few weeks ago with temporary relief of her symptoms Follow-up with orthopedics as scheduled (7) Fibromyalgia: Code(s): M79.7 - Fibromyalgia Category: Medical Plan: Continue Tizanidine HCl 4 mg TID PRN for muscle pains, Tylenol 325 MG, 2 tablets Orally every 12 hrs as needed and Gabapentin 600 mg TID for pain control/management She is again encouraged to try to stay active and exercise regularly to help manage her fibromyalgia symptoms. (8) Neuropathy: Code(s): G62.9 - Polyneuropathy, unspecified Category: Medical Plan: Continue Gabapentin 600 MG 1 tablet 3 times a day Will consider repeating NCV if symptoms persist/worsen (9) Carpal tunnel syndrome of right wrist: Code(s): G56.01 - Carpal tunnel syndrome, right upper limb Category: Medical Plan: (+) Hx of median nerve release a few years ago but symptoms appear to have recurred since and has gotten worse lately Offered to send her for repeat MCV & EMG but patient declined - states that she still remembers how painful the procedure was a few years ago and prefers not to get it done again if she can avoid it She was referred back to Dr. Fregoso for further management and consideration for repeat CTS surgery We have not received any correspondence from Dr. Fregoso so far so am unclear as to whether she was seen or not at this time (10) Vitamin B12 deficiency: Code(s): E53.8 - Deficiency of other specified B group vitamins Category: Medical Plan: Continue Vitamin B12 1000 mcg QD (11) Vitamin D deficiency: Code(s): E55.9 - Vitamin D deficiency, unspecified Category: Medical Plan: Continue Vitamin D2 74766 units once a week (12) Insomnia: Code(s): G47.00 - Insomnia, unspecified Category: Medical Qualifiers: Insomnia type: unspecified Qualified Code(s): G47.00 - Insomnia, unspecified Plan: Sleep hygiene reinforced Continue Zolpidem 10 mg Q HS PRN Have advised patient that she can try taking OTC Melatonin up to 10 mg Q HS in addition to her Zolpidem to see if this will help her get to sleep better She declined offer to start her additionally on Trazodone - states that she has tried this in the past without any success If this continues to persist, may need to have her go to get her sleep apnea reassessed as well (13) Anxiety: Code(s): F41.9 - Anxiety disorder, unspecified Category: Medical Plan: Continue Lorazepam 0.5 mg QD PRN (14) Depression: Comment: Recurrent MDD Code(s): F32.9 - Major depressive disorder, single episode, unspecified Category: Medical Qualifiers: Active/Remission status: currently active Depression Type: major depressive disorder Major depression episode severity: unspecified Major depression recurrence: recurrent Qualified Code(s): F33.9 - Major depressive disorder, recurrent, unspecified Plan: Continue Venlafaxine ER 150 mg QD, Latuda 40 mg Q HS and [place] ER 450 mg BID Follow up with psychiatry as scheduled (15) Obesity (BMI 30-39.9): Comment: She is actually morbidly obese with BMI of 41. Again stressed about losing weight, she is not able to do any active exercise. Trying to decrease her calories intake as much as she can, Code(s): E66.9 - Obesity, unspecified Category: Medical Plan: Reinforced diet/exercise as tolerated/lose weight Plan Follow up in 4 months Orders: Orders Lipid Panel 4 Months E78.00 - Pure hypercholesterolemia, unspecified TSH reflex Free T4 4 Months E78.00 - Pure hypercholesterolemia, unspecified UA CC w/rflx Micro + Cult 4 Months R30.0 - Dysuria Vitamin B12 and Folate 4 Months E53.8 - Deficiency of other specified B group vitamins Complete Blood Count Auto Diff 4 Months D64.9 - Anemia, unspecified Comprehensive [place]. Panel Fast 4 Months E78.00 - Pure hypercholesterolemia, un specified Vitamin D 25-OH Total 4 Months E55.9 - Vitamin D deficiency, unspecified Referrals Pulmonology Referral J45.41 - Moderate persistent asthma with (acute) exacerbation
--- OUTSIDE RECORDS SUMMARY | 2025-01-04 11:05 | XMS_ITS | Patient Health Record ---
[facility] Address [address] [facility] [place] [address] Care Team Providers Care Office Machine Service Supervisor Name Role Phone Denise Greco MDh Primary Care Provider Darin Gonzalez Unavailable [phone] Allergies No Known Allergies Reason For Referral [...] Orally Once a day Active Dorzolamide-Timolol Active [place] Carbonate ER 450 MG 1 tablet at [...] Osteoarthritis of midtarsal joint of left foot ([id number] ) Osteoarthritis of midtarsal joint of left foot (M19.072) Active confirmed Problem Osteoarthritis of midtarsal joint of right foot ([id number] ) Osteoarthritis of midtarsal joint of right foot (M19.071) Active confirmed Vital Signs Height 5 ft 2 in in 08/09/2024 Weight 227 lbs 08/09/2024 BMI 41.51 kg/m2 08/09/2024 Encounters Encounter Location Date Provider Diagnosis [facility] [place] [address] [address] 08/09/2024 Darin Oriana Pain in left foot [...] of midtarsal joint of right foot M19.071 [facility] [place] [address] [place] [address] 08/07/2024 Darin Gastelum Assessments Encounter Date Diagnosis [...] Insured Coverage Start Date Coverage End Date [facility] [employer] Claims [address] [facility] [place] [address] [phone] [id number] Nato Goodman Self - patient is the [...]
--- OUTSIDE RECORDS SUMMARY | 2025-01-04 11:05 | XMS_ITS | Encounter Summary ---
Author Organization [employer] Address [address] [place] [address] [address] [place] [address] Care Team Providers Care Horticultural Worker Name Role Phone Unavailable Primary Care Provider Unavailabl e Reason for Visit * Reason Onset Date Comments referral to [place] [facility] y 12/28/2024 Encounter Details Date Type Department Care Team ([facility] st Contact Info) Description 12/28/2024 Telephone [facility] [address] [place] [address] Yuliana Jung, DDS [address], [place] [id number] referral to [place] [facility] Social History Tobacco Use Types [...] referral faxed over to [facility] in [place]. They state they have not received. Faxed over again today from [facility] ariane CROWLEY documented in this encounter Plan of Treatment Upcoming Encounters Date Type Department Care Team (Late st Contact Info) Description 01/30/2025 8:00 AM EDT Office Visit [facility] [address] [place] [address] Nona Montanez documented as of this encounter Visit Diagnoses Not on filedocumented in this encounter
--- OUTSIDE RECORDS SUMMARY | 2025-01-04 11:05 | XMS_ITS ---
Author Organization [facility] Address [address] [place] [address] Care Team Providers Care Truck Driver Instructor Name Role Phone Angus GUSTAFSON, [place] Primary Care Provider Unava Darin Cruz Unavailable [phone] REASON FOR VISIT PCP Notes & MENU PLANNER PPWK Entered Encounters Encounter Location Date Provider Diagnosis [facility] [address] [place] [address] 08/07/2024 Darin Gastelum Plan Of Treatment No Information Progress Notes * Jarocho GAMBOAB:[birth year] (63 yo F)Acc No.[id number]:08/07/2024 Patient:?Nato Gamboa :1960???Age:63 Y???Sex:Female [address]: [place], [address] * true * Date:? Generated for Herminioi hema/Neftali/eTransmitting on:?01/04/2025 11:05 AM EST
--- OUTSIDE RECORDS SUMMARY | 2025-01-04 11:05 | XMS_ITS | Encounter Summary ---
Author Organization [employer] [facility] Address [address] [place] [address] [address] [place] [address] Care Team Providers Care Greenskeeper Supervisor Name Role Phone Unavailable Primary Care Provider Unavailabl e Encounter Details Date Type Department Care Team (Latest Contact Info) Description 01/15/[address] [facility] CONVERSIONS Dental, Provider, DDS Social History [...] Description 01/30/2025 8:00 AM EDT Office [address] [facility] [address] [place] [address] Nona Montanez documented as of this encounter Visit Diagnoses Not on filedocumented in this encounter
--- OUTSIDE RECORDS SUMMARY | 2025-01-04 11:05 | XMS_ITS ---
Author Organization [facility] [place] Address [address] [place] [address] Care Team Providers Care Automotive Service Cashier Name Role Phone Denise Greco MDh Primary Care Provider Darin Gonzalez Unavailable [phone] Allergies No Known Allergies REASON FOR VISIT [...] as needed Orally Once a day Active [place] Carbonate ER 450 MG 1 tablet at [...] Osteoarthritis of midtarsal joint of left foot (4087350371453984 ) Osteoarthritis of midtarsal joint of left foot (M19.072) Active confirmed Problem Osteoarthritis of midtarsal joint of right foot (0739159823163911 ) Osteoarthritis of midtarsal joint of right foot (M19.071) Active confirmed Vital Signs Height 5 ft 2 in in 08/09/2024 Weight 227 lbs 08/09/2024 BMI 41.51 kg/m2 08/09/2024 Encounters Encounter Location Date Provider Diagnosis [facility] [address] [address] 08/09/2024 Darin Oriana Pain in left foot [...] * Jarocho GAMBOAB:[birth year] (64 yo F)Acc No.[id number]:08/09/2024 Progress Notes Patient:?Nato GAMBOA Provider:?Darin Gastelum DPM :1960???Age:63 Y???Sex:Female D ate:08/09/2024 [facility] Pcp:Glynn Greco MD Subjective: * Chief Complaints: [...] Tablet 1 tablet Orally Once a day [place] Carbonate ER 450 MG Tablet Extended Release [...] 1 tablet Orally Once a day Taking [place] Carbonate ER 450 MG Tablet Extended Release [...] ray : Foot, right 3V * Procedure Codes:?92049 X-RAY EXAM OF LEFT FOOT 3V, Modifiers: 26 , KL41269 X-RAY EXAM OF RIGHT FOOT 3V, Modifiers: [...] exercise to failure, expense, systemic complications, infection, [id number], prolongued postop course. Patient questions re: the various treatment options available, their successes and potential failures, and intermediate accountant effects were discussed and the answers were [...] Gastelum DPM Date:?2023 Generated for Elke garrido/Neftali/Kirill on:?01/04/2025 11:05 AM EST History and Physical Notes * [...]
--- OUTSIDE RECORDS SUMMARY | 2025-01-04 11:05 | XMS_ITS | Data Portability ---
Author Organization [facility] PAIN OFFICE Address [address] [facility] [place] [address] Care Team Providers Care Service Attendant Name Role Phone LEDY LOMBARDI Primary Care [...] and she will follow up with her product safety administrator . She states she had a colonoscopy a few years back which was within normal limits. She can return for a repeat injection after? ? ? seeing the product safety administrator. salo Not available 04/05/2013 10:19:04 12/06/2013 12/06/2013 [...] booked for the same. She needs a motor coach driver on the day of the procedure. [...] booked for the same. She needs a motor coach driver on the day of the procedure. She is on coumadin. She can stop coumadin for 5 days prior to the procedure per her PCP. Her INR needs to be 1.1 or less on the day of the procedure to proceed. She will have it checked at [facility] and fax us the results. [...] stat on 01/04. Please fax results to [phone] . Thanks. 2016 017 [facility] (Lab), [address], [place], [address], 7 17:12:59 Referral None recorded. Procedures None recorded. Surgeries None recorded. Imaging None recorded. Medication Orders lidocaine 5 % topical patch 2013 014 [id number], [address] [facility], [place], [address], 7 08:58:28 Patient TargetsNo targets recorded. Patient Instructions Encounter Date Encounter Id Patient Instructions Last Modified By Organization Details Last Modified Time 04/04/2013 [id number] She was advised against bed rest lasting longer than four days and to continue activities as tolerated. [email or web address] Not available 04/05/2013 10:16:09 12/06/2013 [id number] She was advised against bed rest lasting longer than four days and to continue activities as tolerated. [email or web address] Not available 12/07/2013 09:19:05 12/11/2013 [id number] She was advised against bed rest lasting longer than four days and to continue activities as tolerated. [email or web address] Not available 12/11/2013 10:55:58 12/27/2016 [id number] She was advised to continue with activities as tolerated. [email or web address] Not available 12/27/2016 14:29:02 01/04/2017 [id number] She was advised to continue with activities [...] Recorded Time Spinal stenosis of lumbar region 90436223 Active Sepideh heard MD [address] [place] [address] , [address], [facility] [place], [address] , [facility] 4 10:58:50 Enthesopathy of hip region 56257599 Active Sepideh heard MD [address] , [address], [place], [address], [place] [facility] 4 10:58:50 Lumbosacral radiculitis 78859952 Active Sepideh heard MD [address] , [address], [place], [address], [place] [facility] 4 10:58:50 Pseudoclaudi cation syndrome Completed 12/06/2013 Sepideh heard MD [address] , [address], [place], [address], [place] [facility] 4 15:39:47 Problem Notes None recorded. Procedures Surgical History Date Name Laterality Status Provider Name and Address Organization Details Recorded Time 01/04/20 17 Lumbar Epidural steroid injection under fluoroscopic guidance completed Sepideh Kuo MD [address] , [address], [place], [address], [place] [facility] 01/05/2017 14:24:15 12/11/19 14 Greater Trochanteric Bursa Steroid Injection completed Sepideh Kuo MD [address] , [address], [place], [address], [place] [facility] 12/11/2013 10:58:50 12/04/19 13 Lumbar Epidural steroid injection under fluoroscopic guidance completed Sepideh Kuo MD [address] , [address], [place], [address], [place] [facility] 12/05/2012 15:51:55 08/21/20 12 Lumbar Epidural steroid injection under fluoroscopic guidance completed Sepideh Kuo MD [address] , [address], [place], [address], [place] [facility] 08/23/2012 08:38:37 Carpal tunnel release completed Bettina Zapata [place] [facility] 12/27/2016 09:01:07 Other completed Bettina Zapata [place] [facility] 12/27/2016 09:20:46 Other completed Sepideh Kuo MD [address] [facility] , [address], [place], [address], [facility] - [facility] 08/10/2012 14:27:17 Other completed Sepideh Kuo MD [address] [facility] , [address], [place], [address], [facility] - [facility] 08/10/2012 14:27:17 Arthroscopic Surgery completed Bettina Avendañoer [place] - [facility] 12/04/2012 09:39:02 Other completed Bettina Steelezier [place] - [facility] 08/10/2012 13:44:34 Imaging Results [...] Details Last Updated DateTime 4 162.56 cm 063009. 2451 g 39.5 kg/m2 56 /min 100 [...] Tobacco Smoking Status Never Smoker Not Available [facility] 09/05/2020 03:16:10 What Is Your Level Of Alcohol Consumption? None [id number] Information not available 09/05/2020 Are You Currently Employed? No [id number] Information not available 09/05/2020 Which Illicit Or Recreational Drugs Have You Used? 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 [id number] Information not available 09/05/2020 Live Alone Or [...] SNOMED-CT Code Diagnosis ICD10 Code Diagnosis Note [id number] Sepideh Kuo MD [facility] [address] [place] [address] 08/10/2012 13:05:06 08/10/2012 15:37:45 94258 Sepideh Kuo MD [facility] [address] [place] [address] 08/21/2012 14:40:55 08/21/2012 15:48:27 53985 Sepideh Kuo MD [facility] [address] [place] [address] 09/21/2012 14:38:42 09/21/2012 14:50:30 24534 Sepideh Kuo MD [facility] [address] [place] [address] 12/04/2012 14:43:16 12/04/2012 15:30:05 66447 Sepideh Kuo MD [facility] [address] [place] [address] 04/04/2013 09:50:29 04/04/2013 15:31:36 87659 [facility] [address] [place] [address] 12/06/2013 14:21:13 12/07/2013 09:23:01 Enthesopathy of hip region 82644320 Lumbosacra l radiculitis 07360364 Spinal charanjit nosis of lumbar region 38549884 85045 [facility] [address] [place] [address] 12/11/2013 09:14:36 12/11/2013 10:59:34 Spinal stenosis of lumbar region 85510425 Enthesopat hy of hip region 81258859 Lumbosacra l radiculitis 45484917 20191 PAIN OFFICE [address] [place] [address] 12/27/2016 08:36:45 12/27/2016 14:33:08 Lumbosacral radiculitis 60723298 M54.17 Displaceme nt of lumbar intervertebral disc without myelopathy 70450200 M51.26 Lumbosacra 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 05813090 M47.817 Spinal charanjit nosis of lumbar region 96845290 M48.06 Long-term drug therapy 685848643 Z79.02 31996 Sepideh Kuo MD PAIN OFFICE [address] [place] [address] 01/04/2017 14:54:03 01/06/2017 08:36:22 Lumbosacral radiculitis 21609192 M54.17 Displaceme nt of lumbar intervertebral disc without myelopathy 98044632 M51.26 Lumbosacra 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 38342614 M47.817 Spinal charanjit nosis of lumbar region 53881539 M48.06 Long-term drug therapy 173512582 Z79.02 Health Concerns Section Related Observation LastModified by Organization Detai ls LastModified Time None Recorded Concern Status LastModified by Organization Details LastModified Time None Recorded Advance Directives Directive None Recorded Payers Encounter Date Sequence Insurance Name Policy Number Policy Smart Covered Member ID Smart Member ID Guarantor Name 04/04/2013 1 [place] [facility] Nato Goodman [id number] Nato Goodman 12/06/2013 1 [place] [facility] Nato Goodman [id number] Nato Goodman 12/11/2013 1 [place] [facility] Nato Goodman [id number] Nato Goodman 12/27/2016 1 [facility] HEALTH NET PLAN (MEDICAID HMO) [id number] Nato Goodman [id number] Nato Goodman 01/04/2017 1 [facility] HEALTH NET PLAN (MEDICAID HMO) [id number] Nato Goodman [id number] Nato Goodman Notes Date Note Type Note [...] 1 years old. Sepideh Kuo MD [address] [facility] , [address], [place], [address], [address] - [facility] 04/05/2013 14:55:52 12/06/2013 text/html [...] bowel incontinence. Sepideh Kuo MD [address] [facility] , [address], [place], [address], [address] - [facility] 12/12/2013 13:30:10 12/11/2013 text/html She is here for a trial of right trochanteric bursal injection under lfuorscopic guidance. She has stopped her coumadin. INR is 1.2 this morning. Sepideh Kuo MD [address] [facility] , [address], [place], [address], [address] - [facility] 12/12/2013 13:32:15 12/27/2016 text/html [...] for grocery shopping. Sepideh Kuo MD [address] [facility] , [address], [place], [address], [facility] Pain Management 12/31/2016 12:00:00 01/04/2017 text/html She is here for a lumbar epidural steroid injection under fluoroscopic guidance. She has stopped coumadin for 5 days and her INR is 1.0 this morning. Sepideh Ku[facility] MD [address] [facility] , [address], [place], [address], [facility] Pain Management 01/13/2017 16:01:57 OBGyn Episode No OBEpisode recorded.
--- OUTSIDE RECORDS SUMMARY | 2025-01-04 11:05 | XMS_ITS ---
Author Organization [facility] Address [address] [place] [address] [place] [address] Care Team Providers Care Drone Pilot Name Role Phone Angus GUSTAFSON, Glynn Primary Care Provider Darin Gonzalez Unavailable [phone] REASON FOR VISIT Seen Sooner Encounters En[facility] [address] 10/15/2024 Darin Gastelum Plan Of Treatment No Information Progress Notes * BEEBobAngelaB:[birth year] (64 yo F)Acc No.[id number]:10/15/2024 Progress Notes Patient:?Nato GAMBOA Provider:?Darin Gastelum DPM :1960???Age:64 Y???Sex:Female D ate:10/15/2024 Address: [address] [place], [place] Pcp:Glynn Greco MD Subjective: * Chief Complaints: [...] Provider:?Darin Gastelum DPM Date:?2023 Generated for Elke garrido/Neftali/eTshanekasmitting on:?01/04/2025 11:04 AM EST
--- OUTSIDE RECORDS SUMMARY | 2025-01-04 11:05 | XMS_ITS | Clinical Summary ---
Author Organization [employer] Address [address] [place] [address] [address] [place] [address] Care Team Providers Care Garden Tractor Mechanic Name Role Phone Unavailable Primary Care Provider [...] 22 Active cholecalciferol (Vitamin D-3) 1.25 MG (31265 UT) capsule cholecalciferol (vitamin D3) 1,250 mcg [...] 16 Active ergocalciferol (Vitamin D2) 1.25 MG (10189 UT) capsule Take 1 capsule by mouth [...] Type Department Care Team Description 12/28/2024 Telephone [facility] ADULT DENTAL [address] [place] [address] Yuliana Jung DDS referral to [facility] 12/05/2024 1:00 PM EST Office Visit [facility] ADULT D[facility] [address] [place] [address] Yuliana Jung, TIA Retained dental root (Primary Dx) 10/10/2024 11:00 AM EST Office Visit [facility] OPTOMETRY [address] [place] [address] Hiren, Maria A, OD Lamellar macular hole [...] Description 01/30/2025 8:00 AM EDT Office Visit [facility] ADULT D[facility] [address] [place] [address] Nona Montanez Health Maintenance Due Date Last [...] Procedure Name Priority Date/Time Associated Diagnosis Comments CASE PRESENTATION, DETAILED AND EXTENSIVE TREATMENT PLANNING Routine 12/05/2024 1:00 PM EST Retained dental root 14 PALLIATIVE (EMERGENCY) TREATMENT OF DENTAL PAIN - MINOR PROCEDURE Routine 12/05/2024 1:00 PM EST Retained dental [...] Most Recently Relevant to Health Maintenance Insurance [facility]
--- OUTSIDE RECORDS SUMMARY | 2025-01-04 11:05 | XMS_ITS | Encounter Summary ---
Author Organization [employer] Address [address] [place] [address] 7 [place] [address] Care Team Providers Care Ship Rigger Name Role Phone Unavailable Primary Care Provider Unavailabl e Reason for Visit * Reason Comments EMG Encounter Details Date Type Department Care Team ([facility] st Contact Info) Description 12/05/2024 1:00 PM EST Office Visit [facility] ADULT DENTAL [address] [place] [address] Yuliana Jung DDS [address] [place] [address] Retained dental root (Primary Dx) Social History [...] provider: Yuliana Jung DDS Billing provider: Yuliana Jugn DDS [id number] - [employer] - PROFESSIONAL VISITS - CASE PRESENTATION, SUBSEQUENT TO DETAILED AND EXTENSIVE TREATMENT PLANNING (Completed) Service provider: Yuliana Jung DDS Billing provider: Yuliana Jung DDS Patient ID: Nato Goodman is a 64 y.o. female. Time Out: Timeout Date: 12/05/24, Timeout Time: 1316 (EMG Upper left side) Location: [facility] Tooth: UL, #14, and #15 Procedure: Emergency Verified the above with patient, carpenter assistant installer, and provider. Confirmed via patient's chart, intraorally and by radiographs. Railroad Car Checker: not applicable Chief Complaint Patient presents with EMG Medical Hx: Vitals: There were no vitals taken for this visit. Past Medical History: Diagnosis Date Angina pectoris (CMS/HCC) Asthma Disease of thyroid gland GERD (gastroesophageal reflux disease) Glaucoma History of blood clots Hx of care home use of blood thinners Medications: Outpatient Encounter [...] the morning. cholecalciferol (Vitamin D-3) 1.25 MG (06738 UT) capsule cholecalciferol (vitamin D3) 1,250 mcg [...] times daily. ergocalciferol (Vitamin D2) 1.25 MG (11384 UT) capsule Take 1 capsule by mouth [...] are observed. These extractions were performed at [facility]. Pt refers recurrent pain on the area, today is positive to palpation on B vestibule, negative to percussion and palpation on #13. Advised pt to return to [facility] for the extraction of these root tips and a re- evaluation will be conducted if symptoms persist. Pt agreed, referral given to pt. Medication sent to [facility]. Diagnosis: Root tips #14, #15 Assessment/Plan: Referred for ext [facility] Prescriptions: Amoxicillin 500 mg/tid/7 days 21 caps Pt tolerated procedure well, all questions answered. Dismissed in good condition. Pnp: Shanika Hrao Dentist: Yuliana Jung DDS documented in this encounter Plan of Treatment Upcoming Encounters Date Type Department Care Team (Late st Contact Info) Description 01/30/2025 8:00 AM EDT Office Visit [facility] ADULT DENTAL [address] [place] [address] Nona Montanez documented as of this encounter Procedures Procedure Name Priority Date/Time Associated Diagnosis Comments 14 PALLIATIVE (EMERGENCY) TREATMENT OF DENTAL PAIN - MINOR PROCEDURE Routine 12/05/2024 1:00 PM EST Retained dental root CASE PRESENTATION, DETAILED AND EXTENSIVE TREATMENT PLANNING Routine 12/05/2024 1:00 PM EST Retained dental root documented in this encounter Visit Diagnoses Diagnosis Retained dental root- Primary documented in this encounter
--- OUTSIDE RECORDS SUMMARY | 2025-01-04 11:05 | XMS_ITS | Encounter Summary ---
Author Organization [employer] [facility] Address [address] [place] [address] 7t [place] [address] Care Team Providers Care Front End Engineer Name Role Phone Unavailable Primary Care Provider Unavailabl e Encounter Details Date Type Department Care Team (Latest Contact Info) Description 05/22/2019 Abstract [facility] CONVERSIONS Dental, Provider, DDS Social History Tobacco [...] Description 01/30/2025 8:00 AM EDT Office Visit [facility] ADULT DENTAL [address] [place] [address] Nona Montanez documented as of this encounter Visit Diagnoses Not on filedocumented in this encounter
--- OUTSIDE RECORDS SUMMARY | 2025-01-04 11:05 | XMS_ITS | Encounter Summary ---
Author Organization [employer] Address [address] [place] [address] 7[address] [place] [address] Care Team Providers Care Hazardous Waste Technician Name Role Phone Unavailable Primary Care Provider Unavailabl e Reason for Visit * Reason Onset Date Comments emmanuel HOFF 03/12/2024 Encounter Details Date Type Department Care Team ([facility] st Contact Info) Description 03/12/2024 Telephone [facility] ADULT DENTAL [address] [place], [place] [address] Anson Ledezma, AZRA [address] [place], [place] [phone] emmanuel PA Social History Tobacco Use Types [...] Description 01/30/2025 8:00 AM EDT Office Visit [facility] ADULT DENTAL [address] [place] [address] Nona Montanez documented as of this encounter Visit Diagnoses Not on filedocumented in this encounter
== END 2025-01-04 11:40 | disposition home or self-care (01) ==
PROVIDERS: PCP Internal Medicine; Visit Provider Internal Medicine
DX: E78.00 Pure hypercholesterolemia, unspecified (principal); R03.0 Elevated blood-pressure reading, without diagnosis of hypertension; J45.41 Moderate persistent asthma with (acute) exacerbation; G47.33 Obstructive sleep apnea (adult) (pediatric); I80.209 Phlebitis and thrombophlebitis of unspecified deep vessels of unspecified lower extremity; M17.11 Unilateral primary osteoarthritis, right knee; M79.7 Fibromyalgia; G62.9 Polyneuropathy, unspecified; G56.01 Carpal tunnel syndrome, right upper limb; E53.8 Deficiency of other specified B group vitamins; E55.9 Vitamin D deficiency, unspecified; F33.9 Major depressive disorder, recurrent, unspecified; G47.00 Insomnia, unspecified; F41.9 Anxiety disorder, unspecified; E66.9 Obesity, unspecified

== ENCOUNTER → 2025-01-04 10:14 | Outpatient (BNVA) | payer OTHER, SELFPAY | PROVIDERS: PCP Internal Medicine; Visit Provider Internal Medicine | DX: E78.00 Pure hypercholesterolemia, unspecified (principal); R03.0 Elevated blood-pressure reading, without diagnosis of hypertension; J45.41 Moderate persistent asthma with (acute) exacerbation; G47.33 Obstructive sleep apnea (adult) (pediatric); M17.11 Unilateral primary osteoarthritis, right knee; M79.7 Fibromyalgia; G62.9 Polyneuropathy, unspecified; G56.01 Carpal tunnel syndrome, right upper limb; E53.8 Deficiency of other specified B group vitamins; E55.9 Vitamin D deficiency, unspecified; F41.9 Anxiety disorder, unspecified; F33.9 Major depressive disorder, recurrent, unspecified; E66.9 Obesity, unspecified | CPT/HCPCS: 96127; 99212 ==

== ENCOUNTER 2025-03-15 10:09 | Outpatient (REF) | payer OTHER, SELFPAY ==
--- OUTSIDE RECORDS SUMMARY | 2025-03-15 10:34 | XMS_ITS ---
Author Organization [facility] Address [address] [place] [address] Care Team Providers Care Aluminizer Name Role Phone Angus GUSTAFSON, [place] Primary Care Provider Unava Darin Cruz Unavailable [phone] REASON FOR VISIT PCP Notes & EVALUATOR PPWK Entered Encounters Encounter Location Date Provider Diagnosis [facility] [address] [place] [address] 08/07/2024 Darin Gastelum Plan Of Treatment No Information Progress Notes * Jarocho GAMBOAB:[birth year] 56 (63 yo F)Acc No.[id number]:08/07/2024 Patient:?Nato Gamboa :1960???Age:63 Y???Sex:Female Address: [place], [address] * true * Date:? Generated for Printi ng/Mollyg/eTransmitting on:?03/15/2025 10:34 AM EDT
--- OUTSIDE RECORDS SUMMARY | 2025-03-15 10:34 | XMS_ITS ---
Author Organization [facility] Address [address] [place] [address] Care Team Providers Care Copy Lathe Tender Name Role Phone Glynn Greco MD Primary Care Provider Darin Gonzalez Unavailable [phone] REASON FOR VISIT Seen Sooner Encounters Encounter Location Date Provider Diagnosis [address] [address] 10/15/2024 Darin Gastelum Plan Of Treatment No Information Progress Notes * BEEBobAngelaB:[birth year] (64 yo F)Acc No.[id number]:10/15/2024 Progress Notes Patient:?Nato GAMBOA Provider:?Darin Gastelum DPM :1960???Age:64 Y???Sex:Female D ate:10/15/2024 Address: [address] [place], [place] Pcp:Glynn Greco MD Subjective: * Chief Complaints: [...] Gastelum DPM Date:?2023 Generated for Elke garrido/Neftali/eTransmitting on:?03/15/2025 10:34 AM EDT
--- OUTSIDE RECORDS SUMMARY | 2025-03-15 10:34 | XMS_ITS | Data Portability ---
Author Organization [facility] Pain Managem LEWIS abebe PAIN OFFICE Address [address] [facility],[address] [place] [address] Care Team Providers Care Cable Repairer Name Role Phone LEDY LOMBARDI Primary Care [...] and she will follow up with her director of neighborhood service center . She states she had a colonoscopy a few years back which was within normal limits. She can return for a repeat injection after?? seeing the director of neighborhood service center. [email or web address] Not available 04/05/2013 10:19:04 12/06/2013 12/06/2013 [...] booked for the same. She needs a guard driver on the day of the procedure. [...] booked for the same. She needs a guard driver on the day of the procedure. She is on coumadin. She can stop coumadin for 5 days prior to the procedure per her PCP. Her INR needs to be 1.1 or less on the day of the procedure to proceed. She will have it checked at [facility] and fax us the results. [email or web address] [...] stat on 01/04. Please fax results to [phone] . Thanks. 2016 017 [facility] (Lab), [address], [place], [address], 7 17:12:59 Referral None recorded. Procedures None recorded. Surgeries None recorded. Imaging None recorded. Medication Orders lidocaine 5 % topical patch 2013 014 [id number], [address], [place], [address], 7 08:58:28 Patient TargetsNo targets recorded. Patient Instructions Encounter Date Encounter Id Patient Instructions Last Modified By Organization Details Last Modified Time 04/04/2013 [id number] She was advised against bed rest lasting longer than four days and to continue activities as tolerated. [email or web address] Not available 04/05/2013 10:16:09 12/06/2013 [id number] She was advised against bed rest lasting longer than four days and to continue activities as tolerated. [email or web address] Not available 12/07/2013 09:19:05 12/11/2013 [id number] She was advised against bed rest lasting longer than four days and to continue activities as tolerated. [email or web address] Not available 12/11/2013 10:55:58 12/27/2016 [id number] She was advised to continue with activities as tolerated. [email or web address] Not available 12/27/2016 14:29:02 01/04/2017 [id number] She was advised to continue with activities [...] Recorded Time Spinal stenosis of lumbar region [id number] Riana heard MD [address] [place] [address] , [address], [facility] [place], [address] [facility] [place] [facility] 4 10:58:50 Enthesopathy of hip region 93464790 Riana heard, MD [address] , [address], [place], [address], [place] [facility] 4 10:58:50 Lumbosacral radiculitis 84156100 Active Sepideh heard MD [address] , [address], [place], [address], [place] [facility] 4 10:58:50 Pseudoclaudi cation syndrome Completed 12/06/2013 Sepideh heard MD [address] , [address], [facility] [place] [place], [address], [place] [facility] 4 15:39:47 Problem Notes None recorded. Procedures Surgical History Date Name Laterality Status Provider Name and Address Organization Details Recorded Time 01/04/20 17 Lumbar Epidural steroid injection under fluoroscopic guidance completed Sepideh Kuo MD [address] , [address], [facility] [place], [address], [place] [facility] 01/05/2017 14:24:15 12/11/19 14 Greater Trochanteric Bursa Steroid Injection completed Sepideh Kuo MD [address] , [address], [place], [address], [place] [facility] 12/11/2013 10:58:50 12/04/19 13 Lumbar Epidural steroid injection under fluoroscopic guidance completed Sepideh Kuo MD [address] , [address], [place], [address], [place] [facility] 12/05/2012 15:51:55 08/21/20 12 Lumbar Epidural steroid injection under fluoroscopic guidance completed Sepideh Kuo MD [address] , [address], [place], [address], [place] [facility] 08/23/2012 08:38:37 Carpal tunnel release completed Bettina Zapata [place] - [facility] 12/27/2016 09:01:07 Other completed Bettina Zapata [place] - [facility] 12/27/2016 09:20:46 Other completed Sepideh Kuo MD [address] , [address], [place], [address], [facility] - Pain Management 08/10/2012 14:27:17 Other completed Sepideh Kuo MD [address] , [address], [facility] [place], [address], [facility] - Pain Management 08/10/2012 14:27:17 Arthroscopic Surgery completed Bettina Zapata [place] - Pain Management 12/04/2012 09:39:02 Other completed Bettina Zapata [place] - Pain Management 08/10/2012 13:44:34 Imaging Results [...] Details Last Updated DateTime 4 162.56 cm 914660. 2451 g 39.5 kg/m2 56 /min 100 [...] Tobacco Smoking Status Never Smoker Not Available [facility] 09/05/2020 03:16:10 What Is Your Level Of Alcohol Consumption? None [id number] Information not available 09/05/2020 Are You Currently Employed? No [id number] Information not available 09/05/2020 Which Illicit Or Recreational Drugs Have You Used? 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 [id number] Information not available 09/05/2020 Live Alone Or [...] SNOMED-CT Code Diagnosis ICD10 Code Diagnosis Note [id number] Sepideh Kuo MD PAIN OFFICE [address] [facility] [place] [address] 08/10/2012 13:05:06 08/10/2012 15:37:45 46434 Sepideh Kuo MD PAIN OFFICE [address] [place] [address] 08/21/2012 14:40:55 08/21/2012 15:48:27 75077 Sepideh Kuo MD PAIN OFFICE [address] [facility] [place] [address] 09/21/2012 14:38:42 09/21/2012 14:50:30 69760 Sepideh Kuo MD [facility] PAIN OFFICE [address] [facility] [place] [address] 12/04/2012 14:43:16 12/04/2012 15:30:05 65655 Sepideh Kuo MD PAIN OFFICE [address] [facility] [place] [address] 04/04/2013 09:50:29 04/04/2013 15:31:36 54372 SV PAIN OFFICE [address] [facility] [place] [address] 12/06/2013 14:21:13 12/07/2013 09:23:01 Enthesopathy of hip region 86840488 Lumbosacra l radiculitis 26921073 Spinal charanjit nosis of lumbar region 96804668 00270 PAIN OFFICE [address] [facility] [place] [address] 12/11/2013 09:14:36 12/11/2013 10:59:34 Spinal stenosis of lumbar region 32874321 Enthesopat hy of hip region 01606589 Lumbosacra l radiculitis 94633493 63917 SV PAIN OFFICE [address] [place] [address] 12/27/2016 08:36:45 12/27/2016 14:33:08 Lumbosacral radiculitis 19806992 M54.17 Displaceme nt of lumbar intervertebral disc without myelopathy 73634364 M51.26 Lumbosacra 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 16760656 M47.817 Spinal charanjit nosis of lumbar region 85654368 M48.06 Long-term drug therapy 098647343 Z79.02 79025 Sepideh Kuo MD PAIN OFFICE [address] [place] [address] 01/04/2017 14:54:03 01/06/2017 08:36:22 Lumbosacral radiculitis 16293469 M54.17 Displaceme nt of lumbar intervertebral disc without myelopathy 34676270 M51.26 Lumbosacra 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 05263678 M47.817 Spinal charanjit nosis of lumbar region 38636059 M48.06 Long-term drug therapy 877124155 Z79.02 Health Concerns Section Related Observation LastModified by Organization Detai ls LastModified Time None Recorded Concern Status LastModified by Organization Details LastModified Time None Recorded Advance Directives Directive None Recorded Payers Encounter Date Sequence Insurance Name Policy Number Policy Smart Covered Member ID Smart Member ID Guarantor Name 04/04/2013 1 [place] [facility] Nato Goodman [id number] Nato Goodman 12/06/2013 1 [place] [facility] Nato Goodman [id number] Nato Goodman 12/11/2013 1 [place] [facility] Nato Goodman [id number] Nato Goodman 12/27/2016 1 [facility] PLAN (MEDICAID HMO) [id number] Nato Goodman [id number] Nato Goodman 01/04/2017 1 [facility] PLAN (MEDICAID HMO) [id number] Nato Goodman [id number] Nato Goodman Notes Date Note Type Note [...] 1 years old. Sepideh Kuo MD [address] , [address], [place], [address], [facility] - Pain Management 04/05/2013 14:55:52 12/06/2013 [...] bowel incontinence. Sepideh Kuo MD [address] [facility] , [address], [place], [address], [employer] - Pain Management 12/12/2013 13:30:10 12/11/2013 text/html She is here for a trial of right trochanteric bursal injection under lfuorscopic guidance. She has stopped her coumadin. INR is 1.2 this morning. Sepideh Kuo MD [address] , [address], [place], [address], [facility] - Pain Management 12/12/2013 13:32:15 12/27/2016 text/html [...] for grocery shopping. Sepideh Kuo MD [address] [facility] [address], [place], [address], [facility] Pain Management 12/31/2016 12:00:00 01/04/2017 text/html She is here for a lumbar epidural steroid injection under fluoroscopic guidance. She has stopped coumadin for 5 days and her INR is 1.0 this morning. Sepideh Kuo MD [address] [facility] [address] , [address], [place], [address], [facility] Pain Management 01/13/2017 16:01:57 OBGyn Episode No OBEpisode recorded.
--- OUTSIDE RECORDS SUMMARY | 2025-03-15 10:34 | XMS_ITS | Patient Health Record ---
Author Organization [facility] Address [address] [place] [address] Care Team Providers Care Sas Administrator Name Role Phone Denise Greco MDh Primary Care Provider Darin Gonzalez Unavailable [phone] Allergies No Known Allergies Reason For Referral [...] Orally Once a day Active Dorzolamide-Timolol Active [place] Carbonate ER 450 MG 1 tablet at [...] Osteoarthritis of midtarsal joint of left foot (3148401029915560 ) Osteoarthritis of midtarsal joint of left foot (M19.072) Active confirmed Problem Osteoarthritis of midtarsal joint of right foot (9945679845907627 ) Osteoarthritis of midtarsal joint of right foot (M19.071) Active confirmed Vital Signs Height 5 ft 2 in in 08/09/2024 Weight 227 lbs 08/09/2024 BMI 41.51 kg/m2 08/09/2024 Encounters Encounter Location Date Provider Diagnosis [facility] [place] [address] [address] 08/09/2024 Darin Oriana Pain in left foot [...] of midtarsal joint of right foot M19.071 [facility] [place] [address] [place] [address] 08/07/2024 Darin Gastelum Assessments Encounter Date Diagnosis [...] Insured Coverage Start Date Coverage End Date [facility] [employer] Claims [address] [facility] [place] [address] [phone] [id number] Nato Goodman Self - patient is the [...]
--- OUTSIDE RECORDS SUMMARY | 2025-03-15 10:35 | XMS_ITS ---
Author Organization [facility] Address [address] [facility] [place] [address] Care Team Providers Care Instructional Material Director Name Role Phone Denise Greco MDh Primary Care Provider Darin Gonzalez Unavailable [phone] Allergies No Known Allergies REASON FOR VISIT [...] as needed Orally Once a day Active [place] Carbonate ER 450 MG 1 tablet at [...] Osteoarthritis of midtarsal joint of left foot (4583265859833611 ) Osteoarthritis of midtarsal joint of left foot (M19.072) Active confirmed Problem Osteoarthritis of midtarsal joint of right foot (4820340175296584 ) Osteoarthritis of midtarsal joint of right foot (M19.071) Active confirmed Vital Signs Height 5 ft 2 in in 08/09/2024 Weight 227 lbs 08/09/2024 BMI 41.51 kg/m2 08/09/2024 Encounters Encounter Location Date Provider Diagnosis [facility] [place] [address] [address] 08/09/2024 Darin Oriana Pain in left foot [...] * Jarocho GAMBOAB:[birth year] (64 yo F)Acc No.[id number]:08/09/2024 Progress Notes Patient:?Nato GAMBOA Provider:?Darin Gastelum DPM :1960???Age:63 Y???Sex:Female D ate:08/09/2024 [facility] Pcp:Glynn Greco MD Subjective: * Chief Complaints: [...] Cramps/ Resting?admits.?Muscle cramps / walking?admits.?Generalized aches and pains?denies.?Weakness?denies.?Integ.:?Ahll?denies.?Scars?denies.?Corns/calluses?denies.?Ingrown nails?denies.?Painful nails?denies.?Open Sores?denies.?Rashes?denies.?Neurologic:?Difficulty sleeping?admits.?Brain disorder?denies.?Numbness?denies.?Balance trouble?denies.?Confusion?denies.?Fainting/blackouts?denies.?Tingling?denies.?Tr emors?denies.? [...] Tablet 1 tablet Orally Once a day [place] Carbonate ER 450 MG Tablet Extended Release [...] 1 tablet Orally Once a day Taking [place] Carbonate ER 450 MG Tablet Extended Release [...] ray : Foot, right 3V * Procedure Codes:?56114 X-RAY EXAM OF LEFT FOOT 3V, Modifiers: 26 , HN19361 X-RAY EXAM OF RIGHT FOOT 3V, Modifiers: [...] exercise to failure, expense, systemic complications, infection, [id number], prolongued postop course. Patient questions re: the various treatment options available, their successes and potential failures, and [place] [facility] effects were discussed and the answers were [...] Gastelum DPM Date:?2023 Generated for Elke garrido/Neftali/Kirill on:?03/15/2025 10:34 AM EDT History and Physical Notes * HPI (History [...]
== END 2025-03-15 10:10 | disposition home or self-care (01) ==
LOC: HO.MAMMO 10:09
PROVIDERS: PCP Internal Medicine; Visit Provider Internal Medicine
DX: Z12.31 Encounter for screening mammogram for malignant neoplasm of breast (principal)
CPT/HCPCS: 77063; 77067

== ENCOUNTER → 2025-03-15 10:30 | Outpatient (BNV) | payer OTHER, SELFPAY | PROVIDERS: PCP Internal Medicine; Visit Provider Internal Medicine | DX: Z12.31 Encounter for screening mammogram for malignant neoplasm of breast (principal) | CPT/HCPCS: 77063; 77067 ==

== ENCOUNTER 2025-03-18 11:10 | Outpatient (AMB) | payer OTHER, SELFPAY ==
[2025-03-18 11:14] VITALS: BP 145/71; PULSE 64; BMI 35.6
--- NOTE | 2025-03-18 11:14 | MHC.OFFVIS ---
Vital Signs 03/18/25 11:14 Height 5 ft 5 in Weight 213 lb 13.574 oz BMI 35.6 BP 145/71 H Blood Pressure Location Lt brachial Position Sitting Pulse 64 Intake Visit Reasons: Diverticulitis Intake Note: Nato presents in the office as a new patient for diverticulitis. CC: She states that she is having pains in the LUQ ever since that she had her procedure. Gall bladder was removed Production Lapping Machine Operator Required: Yes Allergies No Known Allergies Allergy (Verified 03/18/25 11:17) HPI Comments Details: 64 y.o F with PMH of who was referred here for abnormal CT urogram that coincidentally showed sigmoid diverticulitis. Patient accompanied by her son. Seen with the help of online conference interpreter. Patient reports intermittent left lower quadrant pain and cramping for almost a year. This is associated with changes in bowel habits fluctuating between soft to hard pellets. Patient was seeing urology for hematuria and dysuria who ordered CT urogram. During those days, patient was having chills as well as L sided pain but attributed this to urinary complaints. She otherwise has not had any rectal bleeding. No family history of colon cancer first-degree relatives. Currently no acute gastrointestinal complaints. Last colonoscopy 2019 (Dr. Triplett): Hemorrhoids. No polyps. Diverticulosis in sigmoid colon. CT urogram 09/2024: GASTROINTESTINAL TRACT: Numerous diverticula in the left hemicolon mostly in the descending colon with mild pericolonic edema pattern at the descending colon/proximal sigmoid colon junction. No peripheral enhancing fluid collection in the peritoneal cavity. Mesenteric edema pattern prominent mesenteric lymph nodes. No pneumoperitoneum. Abundant stool. No intestinal obstruction pattern. Gas and fluid-filled mildly prominent small bowel loops, nonspecific. Appendix is normal. No pneumatosis intestinalis. [facility] Medical History (Updated 03/18/25 @ 15:43 by Daiana Crouch MD) Insomnia Morbid obesity with BMI of 40.0-44.9, adult Pure hypercholesterolemia Exertional dyspnea Fatigue Cough Lumbar degenerative disc disease Phlegmasia cerulea dolens Obstructive sleep apnea COVID-19 Hyperthyroidism Anxiety Obstructive sleep apnea Condyloma acuminata Vitamin B12 deficiency Lung granuloma Phlegmasia cerulea dolens Chronic low back pain Vitamin D deficiency Obesity (BMI 30-39.9) Fibromyalgia Depression Neuropathy DVT (deep venous thrombosis) Asthma DDD (degenerative disc disease) Surgical History (Updated 03/18/25 @ 11:20 by JUANITA Law) Hx of cholecystectomy History of esophagogastroduodenoscopy (EGD) S/P laparoscopic appendectomy History of embolectomy Benign neoplasm of neck History of colonoscopy History of bilateral tubal ligation History of carpal tunnel release History of bilateral oophorectomy S/P IVC filter Family History Father Liver cirrhosis Cancer Mother Heart attack Coronary artery disease Asthma Diabetes mellitus Brother No problems noted. Sister No problems noted. Sister No problems noted. Sister No problems noted. Sister No problems noted. Sister No problems noted. Sister No problems noted. Sister No problems noted. Sister No problems noted. Sister No problems noted. Sister No problems noted. Sister No problems noted. Sister No problems noted. Sister No problems noted. Paternal Aunt Colon cancer Son Histiocytosis Son No problems noted. Son No problems noted. Social History Household Members: Children Housing: Apartment Do you presently have visiting nurse or other home services: Yes ([employer]) Alcohol intake: former Patient Tobacco Use Status: Never used Tobacco e-Cigarette/Vaping Use: Never Used Second Hand Smoke Exposure: No Advance Directives Date on File: 08/15/23 service: No Current occupational status: disabled Current occupation: right hand Cognitive needs: Yes (cane) Hearing needs: No Vision needs: Yes Review of Systems Const All systems reviewed & are unremarkable except as noted in HPI and below Physical Exam Vital Signs: Last Vital Signs Pulse 64 03/18/25 11:14 BP 145/71 H 03/18/25 11:14 BMI result Body Mass Index 35.6 No apparent distress Nonicteric Abdomen soft, nondistended Alert and oriented x3, normal gait Assessment & Plan Assessment & Plan (1) Diverticulitis: Code(s): K57.92 - Diverticulitis of intestine, part unspecified, without perforation or abscess without bleeding Category: Medical (2) Diverticulosis: Code(s): K57.90 - Diverticulosis of intestine, part unspecified, without perforation or abscess without bleeding Category: Medical Plan Based on previously known history, CT findings likely secondary to acute uncomplicated diverticulitis. However, will need to rule out underlying mass mimicking as diverticulitis given last colonoscopy was more than 3 years ago. Plan: -colonoscopy will be booked -MiraLax/Gatorade prep prescribed. -instructions were reviewed with the help of lang interpreter and handout provided as well. Follow-up after colonoscopy as needed Medications: New polyethylene glycol 3350 (Miralax) mix in 64 oz of gatorade for colonoscopy prep 238 grams PO ONCE 238 grams 0RF Discontinued Flovent HFA 220 mcg/actuation (fluticasone propionate) Discontinued Reason: Duplicate 2 puffs inhalation BID 30 days 12 grams 5RF NS Coding Level of Care Code New Pt Level 4 (60587) Diagnoses Diverticulitis K57.92 Diverticulosis K57.90
--- OUTSIDE RECORDS SUMMARY | 2025-03-18 13:26 | XMS_ITS ---
Author Organization [facility] Address [address] [facility] [place] [address] Care Team Providers Care Etcher Photoengraving Name Role Phone Glynn Greco MD Primary Care Provider Darin Gonzalez Unavailable [phone] REASON FOR VISIT Seen Sooner Encounters Encounter Location Date Provider Diagnosis [address] [address] 10/15/2024 Darin Gastelum Plan Of Treatment No Information Progress Notes * BEEBobAngelaB:[birth year] 56 (64 yo F)Acc No.[id number]:10/15/2024 Progress Notes Patient:?Nato GAMBOA Provider:?Darin Gastelum DPM :1960???Age:64 Y???Sex:Female D ate:10/15/2024 Address: [address] [place] [place], [place] Pcp:Glynn Greco MD Subjective: * Chief Complaints: [...] Gastelum DPM Date:?2023 Generated for Elke garrido/Neftali/eTransmitting on:?03/18/2025 01:26 PM EDT
--- OUTSIDE RECORDS SUMMARY | 2025-03-18 13:26 | XMS_ITS | Encounter Summary ---
Author Organization [email or web address] Address [address] [place] [address] [address] [place] [address] Care Team Providers Care Mediation Commissioner Name Role Phone Unavailable Primary Care Provider Unavailabl e Reason for Visit * Reason Onset Date Comments referral to [facility] y 12/28/2024 Encounter Details Date Type Department Care Team ([facility] st Contact Info) Description 12/28/2024 Telephone [facility] [address] [place] [address] Yuliana Jung, DDS [address] [place], [place] [id number] referral to [facility] Social History Tobacco Use Types [...] referral faxed over to [facility] in [place]. They state they have not received. Faxed over again today from [facility] ariane CROWLEY documented in this encounter Plan of Treatment Upcoming Encounters Date Type Department Care Team (Late st Contact Info) Description 08/05/2025 8:00 AM EDT Office Visit [facility] [address] [place] [address] Nona Montanez documented as of this encounter Visit Diagnoses Not on filedocumented in this encounter
--- OUTSIDE RECORDS SUMMARY | 2025-03-18 13:26 | XMS_ITS | Patient Health Record ---
Author Organization [facility] Address [address] [facility] [place] [address] Care Team Providers Care Bacteriologist Dairy Name Role Phone Denise Greco MDh Primary Care Provider Darin Gonzalez Unavailable [phone] Allergies No Known Allergies Reason For Referral [...] Orally Once a day Active Dorzolamide-Timolol Active [place] Carbonate ER 450 MG 1 tablet at [...] Osteoarthritis of midtarsal joint of left foot (5330813988725712 ) Osteoarthritis of midtarsal joint of left foot (M19.072) Active confirmed Problem Osteoarthritis of midtarsal joint of right foot (6445432163366071 ) Osteoarthritis of midtarsal joint of right foot (M19.071) Active confirmed Vital Signs Height 5 ft 2 in in 08/09/2024 Weight 227 lbs 08/09/2024 BMI 41.51 kg/m2 08/09/2024 Encounters Encounter Location Date Provider Diagnosis [facility] [place] [address] [address] 08/09/2024 Darin Oriana Pain in left foot [...] of midtarsal joint of right foot M19.071 [facility] [place] [address] [place] [address] 08/07/2024 Darin Gastelum Assessments Encounter Date Diagnosis [...] Start Date Coverage End Date [facility] SCO Claims [address] [facility] [place] [address] [phone] [id number] Nato Goodman Self - patient is the [...]
--- OUTSIDE RECORDS SUMMARY | 2025-03-18 13:26 | XMS_ITS | Encounter Summary ---
Author Organization [employer] [facility] Address [address] [place] [address] 7t [place] [address] Care Team Providers Care Success Coach Name Role Phone Unavailable Primary Care Provider Unavailabl e Encounter Details Date Type Department Care Team (Latest Contact Info) Description 01/15/2022 Abstract [facility] CONVERSIONS Dental, Provider, DDS Social [...] Description 08/05/2025 8:00 AM EDT Office Visit [facility]ULT [facility] [address] [place] [address] Nona Montanez documented as of this encounter Visit Diagnoses Not on filedocumented in this encounter
--- OUTSIDE RECORDS SUMMARY | 2025-03-18 13:27 | XMS_ITS ---
Author Organization [facility] Address [address] [place] [address] Care Team Providers Care Bench Precision Assembler Name Role Phone Deinse Greco MDh Primary Care Provider Darin Gonzalez Unavailable [phone] Allergies No Known Allergies REASON FOR VISIT [...] as needed Orally Once a day Active [place] Carbonate ER 450 MG 1 tablet at [...] Osteoarthritis of midtarsal joint of left foot (5280043008687755 ) Osteoarthritis of midtarsal joint of left foot (M19.072) Active confirmed Problem Osteoarthritis of midtarsal joint of right foot (7367588722078288 ) Osteoarthritis of midtarsal joint of right foot (M19.071) Active confirmed Vital Signs Height 5 ft 2 in in 08/09/2024 Weight 227 lbs 08/09/2024 BMI 41.51 kg/m2 08/09/2024 Encounters Encounter Location Date Provider Diagnosis [facility] [address] [address] 08/09/2024 Darin Oriana Pain in left foot [...] * Jarocho GAMBOAB:[birth year] (64 yo F)Acc No.[id number]:08/09/2024 Progress Notes Patient:?Nato GAMBOA Provider:?Darin Gastelum DPM :1960???Age:63 Y???Sex:Female D ate:08/09/2024 [facility] Pcp:Glynn Greco MD Subjective: * Chief Complaints: [...] Tablet 1 tablet Orally Once a day [place] Carbonate ER 450 MG Tablet Extended Release [...] 1 tablet Orally Once a day Taking [place] Carbonate ER 450 MG Tablet Extended Release [...] ray : Foot, right 3V * Procedure Codes:?59206 X-RAY EXAM OF LEFT FOOT 3V, Modifiers: 26 , GS36282 X-RAY EXAM OF RIGHT FOOT 3V, Modifiers: [...] exercise to failure, expense, systemic complications, infection, [id number], prolongued postop course. Patient questions re: the various treatment options available, their successes and potential failures, and mcc effects were discussed and the answers were [...] Gastelum DPM Date:?2023 Generated for Elke garrido/Neftali/Kirill on:?03/18/2025 01:27 PM EDT History and Physical Notes * HPI [...]
--- OUTSIDE RECORDS SUMMARY | 2025-03-18 13:27 | XMS_ITS | Encounter Summary ---
Author Organization [employer] Address [address] [place] [address] [address] [place] [address] Care Team Providers Care Hearing Aid Assembly Supervisor Name Role Phone Unavailable Primary Care Provider Unavailabl e Reason for Visit * Reason Onset Date Comments emmanuel PA 03/12/2024 Encounter Details Date Type Department Care Team ([facility] st Contact Info) Description 03/12/2024 Telephone [facility]ULT [facility] [address] [place], [place] [id number] Anson Ledezma, AZRA [address] [place], [place] [id number] emmanuel PA Social History Tobacco Use Types [...] Description 08/05/2025 8:00 AM EDT Office Visit [facility] [address] [place] [address] Nona Montanez documented as of this encounter Visit Diagnoses Not on filedocumented in this encounter
--- OUTSIDE RECORDS SUMMARY | 2025-03-18 13:27 | XMS_ITS | Data Portability ---
Author Organization [facility] Address [address] [facility] [place] [address] Care Team Providers Care Chief Deputy Name Role Phone LEDY LOMBARDI Primary Care [...] and she will follow up with her reflow operator . She states she had a colonoscopy a few years back which was within normal limits. She can return for a repeat injection after? ? ? seeing the reflow operator. salo Not available 04/05/2013 10:19:04 12/06/2013 12/06/2013 [...] for the same. She needs a otr company truck driver on the day of the [...] for the same. She needs a otr company truck driver on the day of the procedure. She is on coumadin. She can stop coumadin for 5 days prior to the procedure per her PCP. Her INR needs to be 1.1 or less on the day of the procedure to proceed. She will have it checked at [facility] and fax us the results. [email or web address] [...] stat on 01/04. Please fax results to [phone] . Thanks. 2016 017 [facility] (Lab), [address] [facility], [place], [address], 7 17:12:59 Referral None recorded. Procedures None recorded. Surgeries None recorded. Imaging None recorded. Medication Orders lidocaine 5 % topical patch 2013 014 [id number], [address] [facility], [place], [address], 7 08:58:28 Patient TargetsNo targets recorded. Patient Instructions Encounter Date Encounter Id Patient Instructions Last Modified By Organization Details Last Modified Time 04/04/2013 [id number] She was advised against bed rest lasting longer than four days and to continue activities as tolerated. [email or web address] Not available 04/05/2013 10:16:09 12/06/2013 [id number] She was advised against bed rest lasting longer than four days and to continue activities as tolerated. [email or web address] Not available 12/07/2013 09:19:05 12/11/2013 [id number] She was advised against bed rest lasting longer than four days and to continue activities as tolerated. [email or web address] Not available 12/11/2013 10:55:58 12/27/2016 [id number] She was advised to continue with activities as tolerated. [email or web address] Not available 12/27/2016 14:29:02 01/04/2017 [id number] She was advised to continue with activities [...] Recorded Time Spinal stenosis of lumbar region 49668968 Active Sepideh heard MD [address] [place] [address] , [address], [facility] [place], [address] , [facility] 4 10:58:50 Enthesopathy of hip region 06013426 Active Sepideh heard MD [address] [employer] , [address], [place], [address], [place] [facility] 4 10:58:50 Lumbosacral radiculitis 91666727 Active Sepideh heard MD [address] , [address], [place], [address], [place] [facility] 4 10:58:50 Pseudoclaudi cation syndrome Completed 12/06/2013 Sepideh heard MD [address] , [address], [place], [address], [place] [facility] 4 15:39:47 Problem Notes None recorded. Procedures Surgical History Date Name Laterality Status Provider Name and Address Organization Details Recorded Time 01/04/20 17 Lumbar Epidural steroid injection under fluoroscopic guidance completed Sepideh Kuo MD [address] , [address], [place], [address], [place] [facility] 01/05/2017 14:24:15 12/11/19 14 Greater Trochanteric Bursa Steroid Injection completed Sepideh Kuo MD [address] , [address], [place], [address], [place] [facility] 12/11/2013 10:58:50 12/04/19 13 Lumbar Epidural steroid injection under fluoroscopic guidance completed Sepideh Kuo MD [address] , [address], [place], [address], [place] [facility] 12/05/2012 15:51:55 08/21/20 12 Lumbar Epidural steroid injection under fluoroscopic guidance completed Sepideh Kuo MD [address] , [address], [place], [address], [place] [facility] 08/23/2012 08:38:37 Carpal tunnel release completed Bettina Zapata [place] [facility] 12/27/2016 09:01:07 Other completed Bettina Zapata [place] [facility] 12/27/2016 09:20:46 Other completed Sepideh uKo MD [address] [facility] , [address], [place], [address], [facility] - Pain [facility] 08/10/2012 14:27:17 Other completed Sepideh Kuo MD [address] [facility] , [address], [place], [address], [facility] - Pain Management 08/10/2012 14:27:17 Arthroscopic Surgery completed Bettina Avendañoer [place] - [facility] 12/04/2012 09:39:02 Other completed Bettina Steelezier [place] - [facility] 08/10/2012 13:44:34 Imaging [...] Details Last Updated DateTime 4 162.56 cm 677613. 2451 g 39.5 kg/m2 56 /min 100 [...] Tobacco Smoking Status [facility]oker [facility] 09/05/2020 03:16:10 What Is Your Level Of Alcohol Consumption? None [id number] Information not available 09/05/2020 Are You Currently Employed? No [id number] Information not available 09/05/2020 Which Illicit Or Recreational Drugs Have You Used? 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 [id number] Information not available 09/05/2020 Live Alone Or [...] SNOMED-CT Code Diagnosis ICD10 Code Diagnosis Note [id number] Sepideh Kuo MD [facility] [address] [place] [address] 08/10/2012 13:05:06 08/10/2012 15:37:45 40472 Sepideh Kuo MD [facility] [address] [place] [address] 08/21/2012 14:40:55 08/21/2012 15:48:27 51601 Sepideh Kuo MD [facility] [address] [place] [address] 09/21/2012 14:38:42 09/21/2012 14:50:30 89940 Sepideh Kuo MD [facility] [address] [place] [address] 12/04/2012 14:43:16 12/04/2012 15:30:05 25111 Sepideh Kuo MD [facility] [address] [facility] [place] [address] 04/04/2013 09:50:29 04/04/2013 15:31:36 69929 [facility] [address] [employer] [place] [address] 12/06/2013 14:21:13 12/07/2013 09:23:01 Enthesopathy of hip region 95281056 Lumbosacra l radiculitis 96366740 Spinal charanjit nosis of lumbar region 49474148 53003 [facility] [address] [place] [address] 12/11/2013 09:14:36 12/11/2013 10:59:34 Spinal stenosis of lumbar region 27878731 Enthesopat hy of hip region 15973132 Lumbosacra l radiculitis 16852180 58865 PAIN OFFICE [address] [facility] [place] [address] 12/27/2016 08:36:45 12/27/2016 14:33:08 Lumbosacral radiculitis 70515849 M54.17 Displaceme nt of lumbar intervertebral disc without myelopathy 32195243 M51.26 Lumbosacra 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 14471735 M47.817 Spinal charanjit nosis of lumbar region 89187284 M48.06 Long-term drug therapy 363101080 Z79.02 38692 Sepideh Kuo MD PAIN OFFICE [address] [facility] [place] [address] 01/04/2017 14:54:03 01/06/2017 08:36:22 Lumbosacral radiculitis 61753024 M54.17 Displaceme nt of lumbar intervertebral disc without myelopathy 64888976 M51.26 Lumbosacra 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 04497377 M47.817 Spinal charanjit nosis of lumbar region 35893442 M48.06 Long-term drug therapy 974133680 Z79.02 Health Concerns Section Related Observation LastModified by Organization Detai ls LastModified Time None Recorded Concern Status LastModified by Organization Details LastModified Time None Recorded Advance Directives Directive None Recorded Payers Encounter Date Sequence Insurance Name Policy Number Policy Smart Covered Member ID Smart Member ID Guarantor Name 04/04/2013 1 [place] [facility] Nato Goodman [id number] Nato Goodman 12/06/2013 1 [place] [facility] Nato Goodman [id number] Nato Goodman 12/11/2013 1 [place] [facility] Nato Goodman [id number] Nato Goodman 12/27/2016 1 [facility] PL[facility] (MEDICAID HMO) [id number] Nato Goodman [id number] Nato Goodman 01/04/2017 1 [employer] (MEDICAID HMO) [id number] Nato Goodman [id number] Nato Goodman Notes Date Note Type Note [...] 1 years old. Sepideh Kuo MD [address] [facility] , [address], [place], [address], [facility] - Pain Management 04/05/2013 14:55:52 12/06/2013 text/html [...] bowel incontinence. Sepideh Kuo MD [address] [facility] , [address], [place], [address], [facility] - Pain Management 12/12/2013 13:30:10 12/11/2013 text/html She is here for a trial of right trochanteric bursal injection under lfuorscopic guidance. She has stopped her coumadin. INR is 1.2 this morning. Sep[facility]h Ku[facility] MD [address] [facility] [address] [facility] [address], [place], [address], [facility] - Pain Management 12/12/2013 13:32:15 12/27/2016 text/html [...] for grocery shopping. Sepideh Kuo MD [address] [employer] , [address], [place], [address], [facility] Pain Management 12/31/2016 12:00:00 01/04/2017 text/html She is here for a lumbar epidural steroid injection under fluoroscopic guidance. She has stopped coumadin for 5 days and her INR is 1.0 this morning. Sepideh Kuo MD [address] [facility], [place], [address], [facility] Pain Management 01/13/2017 16:01:57 OBGyn Episode No OBEpisode recorded.
--- OUTSIDE RECORDS SUMMARY | 2025-03-18 13:27 | XMS_ITS ---
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 Generated for Printi ng/Mollyg/eTransmitting on:?03/18/2025 01:27 PM EDT
--- OUTSIDE RECORDS SUMMARY | 2025-03-18 13:27 | XMS_ITS | Encounter Summary ---
Author Organization [employer] [facility] Address [address] [place] [address] 7[address] [place] [address] Care Team Providers Care Adjunct Instructor Name Role Phone Unavailable Primary Care Provider [...] Description 08/05/2025 8:00 AM EDT Office Visit [facility] [address] [place] [address] Nona Montanez documented as of this encounter Visit Diagnoses Not on filedocumented in this encounter
--- OUTSIDE RECORDS SUMMARY | 2025-03-18 13:27 | XMS_ITS | Clinical Summary ---
Author Organization [employer] Address [address] [place] [address] 7t [place] [address] Care Team Providers Care Sanitation Associate Name Role Phone Unavailable Primary Care Provider [...] 22 Active cholecalciferol (Vitamin D-3) 1.25 MG (22296 UT) capsule cholecalciferol (vitamin D3) 1,250 mcg [...] 16 Active ergocalciferol (Vitamin D2) 1.25 MG (65662 UT) capsule Take 1 capsule by mouth [...] [place] Active amoxicillin-clavu lanate (Augmentin) 875-125 MG tablet Take 1 tablet by mouth 2 times daily. 06/25/20 Active chlorhexidine (Peridex) 0.12 % solution RINSE MOUTH WITH 15 ML (1 CAPFUL) FOR 30 SECONDS TWICE DAILY IN THE MORNING AND IN THE EVENING AFTER BRUSHING TEETH, SPIT OUT EXCESS AFTER RINSE, DO NOT SWALLOW 12/24/19 Active eszopiclone (Lunesta) 3 MG tablet Take 3 mg by mouth at bedtime. 01/14/20 Active fosfomycin (Monurol) 3 g packet USE 1 SACHET POR V A ORAL EVERY 3 DAYS FOR 6 DAYS 12/05/19 Active ibuprofen 600 MG tablet take 1 tablet by mouth every 6 to 8 hours as needed 06/25/20 Active Active Problems Problem Noted Date Diagnosed Date [...] Encounters Date Type Department Care Team Description 02/26/2025 1:30 PM EDT Office Visit [facility]ULT [facility] [address] [place] [address] Yuliana Jung DDS 01/30/2025 8:00 AM EDT Office Visit [facility] [address] [place] [address] Nona Montanez Dental calculus (Primary Dx); Encounter for dental examination; Localized gingival recession 12/28/2024 Telephone [facility] [address] [place] [address] Yuliana Jung DDS referral to [facility] from Last 3 Months Social History Tobacco [...] Sign Reading Time Taken Comments Blood Pressure 122/76 02/26/2025 1:35 PM EDT Pulse 74 01/10/2024 10:14 AM EST Temperature - - Respiratory Rate - - Oxygen Saturation - - Inhaled Oxygen Concentration - - Weight - - Height - - Body Mass Index - - Plan of Treatment Upcoming Encounters Date Type Department Care Team (Late st Contact Info) Description 08/05/2025 8:00 AM EDT Office Visit [facility] [address] [place] [address] Nona Montanez Health Maintenance Due Date Last Done Comments CT Colonography 1960 Colonoscopy 1960 Colorectal Cancer Screening 1960 Depression Screening 1960 FIT DNA/Cologuard 1960 FIT 1960 FOBT 1960 Lipid Panel 1960 SDOH Screening 1960 Sigmoidoscopy 1958 Alcohol/Substance Use Screening 1970 Hepatitis C Screening 1976 Mammogram 1998 Zoster Vaccines (1 of 2) 2008 Pneumococcal Vaccine: 50+ Years (2 of 2 - PCV) 11/09/2020 11/09/2019 COVID-19 Vaccine ( - season) 2024 04/21/2021, 03/25/2021 Dental Oral Exam 08/03/2025 01/30/2025, , 11/09/2022 Dental Prophylaxis 08/03/2025 01/30/2025, 0 01/10/2024, 01/12/2023 Dental X-Ray: Bitewings 01/31/2026 01/31/20, 01/10/2024, 12/14/2022, Additional history exists Tobacco Screening 02/26/2026 02/26/2025 Dental X-Ray: Full Mouth 02/01/2028 01/30/2025, 02/20 DTaP/Tdap/Td Vaccines (3 - Td or Tdap) 08/16/2031 08/16/2021, 06/09/1999 RSV Patients [...] Procedure Name Priority Date/Time Associated Diagnosis Comments NO CHARGE PROCEDURE Routine 02/26/2025 1 :30 PM EDT COMPREHENSIVE PERIODONTAL EVALUATION - NEW OR ESTABLISHED PATIENT Routine 01/30/2025 8:00 AM EDT Dental calculus Encounter for dental examination Localized gingival recession PERIODIC ORAL EVALUATION - ESTABLISHED PATIENT Routine 01/30/2025 8:00 AM EDT Dental calculus Encounter for dental examination Localized gingival recession ORAL HYGIENE INSTRUCTIONS Routine 2024 8:00 AM EDT Dental calculus INTRAORAL - COMPLETE SERIES OF RADIOGRAPHIC IMAGES Routine 01/30/2025 8:00 AM EDT PROPHYLAXIS - ADULT Routine 01/30/2025 8 :00 AM EDT Dental calculus CASE PRESENTATION, DETAILED AND EXTENSIVE TREATMENT PLANNING Routine 01/30/2025 8:00 AM EDT from Last 3 Months Insurance [facility] < 65 [facility]
== END 2025-03-18 12:06 | disposition home or self-care (01) ==
LOC: HO.HGI 11:10
PROVIDERS: PCP Internal Medicine; Visit Provider Internal Medicine
DX: K57.92 Diverticulitis of intestine, part unspecified, without perforation or abscess without bleeding (principal); K57.90 Diverticulosis of intestine, part unspecified, without perforation or abscess without bleeding
CPT/HCPCS: 99204

== ENCOUNTER → 2025-03-18 11:10 | Outpatient (BNVA) | payer OTHER, SELFPAY | PROVIDERS: PCP Internal Medicine; Visit Provider Internal Medicine | DX: K57.90 Diverticulosis of intestine, part unspecified, without perforation or abscess without bleeding (principal); Z90.49 Acquired absence of other specified parts of digestive tract; Z87.19 Personal history of other diseases of the digestive system | CPT/HCPCS: 99202 ==

== ENCOUNTER 2025-03-27 10:44 | Outpatient (AMB) | payer OTHER, SELFPAY ==
--- NOTE | 2025-03-27 10:54 | MHC.OFFVIS ---
Vital Signs 03/27/25 10:58 Height 5 ft 5 in Weight 220 lb 7.396 oz BMI 36.7 BP 120/76 Blood Pressure Location Lt brachial Position Sitting Pulse 80 Pulse Source Pulse Oximeter Pulse Oximetry (%) 99 Oxygen Delivery Method Room Air Intake Visit Reasons: moderate asthma Allergies No Known Allergies Allergy (Verified 03/27/25 10:58) HPI Comments Details: The patient is here for pulmonary evaluation. The patient is a 64 year woman with a known history of ROBERTO CARLOS in addition to asthma. The patient states that she has had significant daytime drowsiness for many years. Her [place] score is significantly elevated at 12/24. She was initially diagnosed with sleep apnea back in 2019. She had a REM related sleep disorder. She was placed on CPAP but she has struggled to tolerated. She has seen multiple specialists with no significant improvement in her tolerability of her CPAP. She has been noticing that she had been having increased palpitations. She does have a watch on now through her [employer] insurance that demonstrated that she is having some runs of tachyarrhythmia. I do not have the details. Will have her get an EKG today. She had been evaluated by Cardiology in the past. The patient also has a history of asthma. Seems to be stable on the current medications. She does not use her rescue inhaler more than 2 times a week. The patient is currently on Eliquis for history of DVT. Will go ahead and try the patient a new mask and she had some difficulties tolerating a fullface mask. We did have an N30 I air touch mask that she can try. When she connects the machine I will be able to decrease the pressures as well as her average pressure typically runs around 7 cm water. And a maximum pressure 10 cm water. Her AHI was less than 1 when she was using her CPAP therapy. [facility] still providing supplies. The patient is aware she needs to use it because of her cardiovascular health unknown worsening disease and significant daytime drowsiness. She is going to continue with respiratory therapy as prescribed. She will return in 3 months and will reassess since her response to the new mask. We did talk about also other alternative therapies such as the hypoglossal nerve stimulators a good option for if she is not able to tolerate PAP therapy. [facility] Medical History (Updated 03/27/25 @ 22:39 by Evelio Haro MD) ROBERTO CARLOS on CPAP Insomnia Morbid obesity with BMI of 40.0-44.9, adult Pure hypercholesterolemia Exertional dyspnea Fatigue Cough Lumbar degenerative disc disease Phlegmasia cerulea dolens Obstructive sleep apnea COVID-19 Hyperthyroidism Anxiety Obstructive sleep apnea Condyloma acuminata Vitamin B12 deficiency Lung granuloma Phlegmasia cerulea dolens Chronic low back pain Vitamin D deficiency Obesity (BMI 30-39.9) Fibromyalgia Depression Neuropathy DVT (deep venous thrombosis) Asthma DDD (degenerative disc disease) Surgical History (Updated 03/18/25 @ 11:20 by JUANITA Law) Hx of cholecystectomy History of esophagogastroduodenoscopy (EGD) S/P laparoscopic appendectomy History of embolectomy Benign neoplasm of neck History of colonoscopy History of bilateral tubal ligation History of carpal tunnel release History of bilateral oophorectomy S/P IVC filter Family History Father Liver cirrhosis Cancer Mother Heart attack Coronary artery disease Asthma Diabetes mellitus Brother No problems noted. Sister No problems noted. Sister No problems noted. Sister No problems noted. Sister No problems noted. Sister No problems noted. Sister No problems noted. Sister No problems noted. Sister No problems noted. Sister No problems noted. Sister No problems noted. Sister No problems noted. Sister No problems noted. Sister No problems noted. Paternal Aunt Colon cancer Son Histiocytosis Son No problems noted. Son No problems noted. Social History Household Members: Children Housing: Apartment Do you presently have visiting nurse or other home services: Yes (STEAM TENDER) Alcohol intake: former Patient Tobacco Use Status: Never used Tobacco e-Cigarette/Vaping Use: Never Used Second Hand Smoke Exposure: No Advance Directives Date on File: 08/15/23 service: No Current occupational status: disabled Current occupation: right hand Cognitive needs: Yes (cane) Hearing needs: No Vision needs: Yes Review of Systems Const Denies chills, Reports daytime sleepiness, Reports difficulty sleeping, Reports fatigue, Denies fever(s), Denies poor appetite, Reports snoring, Denies stops breathing during sleep, Denies weakness, Denies weight gain and Denies weight loss Eyes Denies loss of vision ENT Denies dizziness and Denies hearing loss Card Denies chest pain, Denies irregular heart rhythm, Denies claudication, Denies leg edema, Denies lightheadedness, Reports palpitations, Reports dyspnea on exertion and Denies orthopnea Resp Reports cough, Denies excessive phlegm production, Reports dyspnea on exertion, Reports snoring and Denies wheezing GI Denies abdominal pain, Denies hematochezia, Denies change in bowel habits, Denies nausea and Denies vomiting Denies urinary frequency and Denies dysuria Musc Details: increasing pain over the top of both feet lately Denies arthralgias, Denies muscle weakness, Denies numbness and Denies other Skin/Breast Denies nail changes and Denies rash Neuro Denies Abnormal speech present, Denies dizziness, Denies loss of vision, Denies memory loss, Denies numbness and Denies weakness Psych Denies depression and Denies memory loss Endo Reports fatigue and Reports palpitations Thony/Lymph Denies easy bruising Aller/Immun Denies wheezing Physical Exam Vital Signs: Last Vital Signs Pulse 80 03/27/25 10:58 BP 120/76 03/27/25 10:58 Pulse Ox 99 03/27/25 10:58 Oxygen Delivery Method Room Air 03/27/25 10:58 BMI result Body Mass Index 36.7 Const General: comfortable HEENT Head: Yes normocephalic Neck Neck: Yes supple Chest Chest palpation & inspection: normal inspection of the chest Resp Effort & Inspection: normal respiratory effort Auscultation: clear to auscultation bilaterally Cardio Heart sounds: S1 normal heart sound present and S2 normal heart sound present GI Palpation (GI): Soft to palpation Skin General skin exam: no rashes or lesions noted Neuro Speech: No Abnormal speech present Extrem General: Yes no clubbing, cyanosis or edema Assessment & Plan Assessment & Plan (1) ROBERTO CARLOS on CPAP: Code(s): G47.33 - Obstructive sleep apnea (adult) (pediatric) Category: Medical (2) Asthma: Comment: As per spirometry. There is no significant obstructive disorder, So it seems that she has only mild intermittent bronchial asthma. Explained to her through the wood boat builder supervisor and she understands well. TX : No need to use Flovent. Use ProAir 2 puffs Q 4-6 hours p.r.n., but avoid to use every day. Code(s): J45.909 - Unspecified asthma, uncomplicated Category: Medical Qualifiers: Asthma severity: moderate Asthma persistence: persistent Asthma complication type: with acute exacerbation Qualified Code(s): J45.41 - Moderate persistent asthma with (acute) exacerbation (3) Palpitations: Code(s): R00.2 - Palpitations Category: Medical Plan EKG Restart using APAP, Adjusted 5-20 to 4-8. Trial N30i (needs chinstrap). [facility] as needed F/U 3 months Orders: Orders ECG 12 lead EKG Today J44.9 - Chronic obstructive pulmonary disease, unspecified Coding Level of Care Code New Pt Level 4 (82977) Diagnoses ROBERTO CARLOS on CPAP G47.33 Moderate persistent asthma with acute exacerbation J45.41 Asthma severity: moderate Asthma persistence: persistent Asthma complication type: with acute exacerbation Palpitations R00.2 Time Spent (min) 40
[2025-03-27 10:58] VITALS: BP 120/76; PULSE 80; O2SAT 99; BMI 36.7
--- OUTSIDE RECORDS SUMMARY | 2025-03-27 12:02 | XMS_ITS | Encounter Summary ---
Author Organization [employer] Address [address] [place] [address] 7[address] [place] [address] Care Team Providers Care Quality Worker Name Role Phone Unavailable Primary Care Provider Unavailabl e Reason for Visit * Reason Onset Date Comments referral to [place] [facility] y 12/28/2024 Encounter Details Date Type Department Care Team ([facility] st Contact Info) Description 12/28/2024 Telephone [facility] [address] [place] [address] Yuliana Jung, DDS [address] [place], [place] [id number] referral to [place] [facility] Social History Tobacco Use Types [...] referral faxed over to [facility] in [place]. They state they have not received. Faxed over again today from [facility] ariane CROWLEY documented in this encounter Plan of Treatment Upcoming Encounters Date Type Department Care Team (Late st Contact Info) Description 08/05/2025 8:00 AM EDT Office Visit [facility] [address] [place] [address] Nona Montanez documented as of this encounter Visit Diagnoses Not on filedocumented in this encounter
--- OUTSIDE RECORDS SUMMARY | 2025-03-27 12:02 | XMS_ITS | Patient Health Record ---
Author Organization [facility] Address [address] [facility] [place] [address] Care Team Providers Care Stock Hanger Name Role Phone Denise Greco MDh Primary Care Provider Darin Gonzalez Unavailable [phone] Allergies No Known Allergies Reason For Referral [...] Orally Once a day Active Dorzolamide-Timolol Active [place] Carbonate ER 450 MG 1 tablet at [...] Osteoarthritis of midtarsal joint of left foot (0257273205595424 ) Osteoarthritis of midtarsal joint of left foot (M19.072) Active confirmed Problem Osteoarthritis of midtarsal joint of right foot (5128308464451406 ) Osteoarthritis of midtarsal joint of right foot (M19.071) Active confirmed Vital Signs Height 5 ft 2 in in 08/09/2024 Weight 227 lbs 08/09/2024 BMI 41.51 kg/m2 08/09/2024 Encounters Encounter Location Date Provider Diagnosis [facility] [place] [address] [address] 08/09/2024 Darin Oriana Pain in left foot [...] of midtarsal joint of right foot M19.071 [facility] [place] [address] [place] [address] 08/07/2024 Darin Gastelum Assessments Encounter Date Diagnosis [...] Insured Coverage Start Date Coverage End Date [facility] [employer] Claims [address] [facility] [place] [address] [phone] [id number] Nato Goodman Self - patient is the [...]
--- OUTSIDE RECORDS SUMMARY | 2025-03-27 12:02 | XMS_ITS | Encounter Summary ---
Author Organization [employer] Address [address] [place] [address] 7t [place] [address] Care Team Providers Care Clinical Studies Specialist Name Role Phone Unavailable Primary Care Provider [...] [facility] [address] [place] [address] Nona Montanez documented as of this encounter Visit Diagnoses Not on filedocumented in this encounter
--- OUTSIDE RECORDS SUMMARY | 2025-03-27 12:02 | XMS_ITS | Encounter Summary ---
Author Organization [employer] Address [address] [place] [address] [address] [place] [address] Care Team Providers Care Tea Taster Name Role Phone Unavailable Primary Care Provider Unavailabl e Encounter Details Date Type Department Care Team (Latest Contact Info) Description 05/22/2019 Abstract [facility] CONVERSIONS Dental, Provider, DDS Social History [...] Description 08/05/2025 8:00 AM EDT Office Visit [facility] [address] [place] [address] Nona Montanez documented as of this encounter Visit Diagnoses Not on filedocumented in this encounter
--- OUTSIDE RECORDS SUMMARY | 2025-03-27 12:02 | XMS_ITS | Encounter Summary ---
Author Organization [employer] Address [address] [place] [address] 7t [place] [address] Care Team Providers Care County Nurse Name Role Phone Unavailable Primary Care Provider Unavailabl e Reason for Visit * Reason Onset Date Comments crown PA 03/12/2024 Encounter Details Date Type Department Care Team ([facility] st Contact Info) Description 03/12/2024 Telephone [facility] [address] [place] [address] Anson Ledezma, DMD [address] [place] [address] crown [place] Social History Tobacco Use Types Packs/Day [...] Description 08/05/2025 8:00 AM EDT Office Visit [facility] [address] [place] [address] Nona Montanez documented as of this encounter Visit Diagnoses Not on filedocumented in this encounter
--- OUTSIDE RECORDS SUMMARY | 2025-03-27 12:02 | XMS_ITS | Data Portability ---
Author Organization [facility] Address [address] [facility] [place] [address] Care Team Providers Care Throw Out Clerk Name Role Phone LEDY LOMBARDI Primary Care [...] and she will follow up with her soft water mechanic . She states she had a colonoscopy a few years back which was within normal limits. She can return for a repeat injection after? ? ? seeing the soft water mechanic. salo Not available 04/05/2013 10:19:04 12/06/2013 12/06/2013 [...] booked for the same. She needs a dumpster driver on the day of the procedure. [...] booked for the same. She needs a dumpster driver on the day of the procedure. She is on coumadin. She can stop coumadin for 5 days prior to the procedure per her PCP. Her INR needs to be 1.1 or less on the day of the procedure to proceed. She will have it checked at [facility] and fax us the results. [email or web address] [...] stat on 01/04. Please fax results to [phone] . Thanks. 2016 017 [facility] (Lab), [address] [facility], [place], [address], 7 17:12:59 Referral None recorded. Procedures None recorded. Surgeries None recorded. Imaging None recorded. Medication Orders lidocaine 5 % topical patch 2013 014 [id number], [address] [facility], [place], [address], 7 08:58:28 Patient TargetsNo targets recorded. Patient Instructions Encounter Date Encounter Id Patient Instructions Last Modified By Organization Details Last Modified Time 04/04/2013 [id number] She was advised against bed rest lasting longer than four days and to continue activities as tolerated. [email or web address] Not available 04/05/2013 10:16:09 12/06/2013 [id number] She was advised against bed rest lasting longer than four days and to continue activities as tolerated. [email or web address] Not available 12/07/2013 09:19:05 12/11/2013 [id number] She was advised against bed rest lasting longer than four days and to continue activities as tolerated. [email or web address] Not available 12/11/2013 10:55:58 12/27/2016 [id number] She was advised to continue with activities as tolerated. [email or web address] Not available 12/27/2016 14:29:02 01/04/2017 [id number] She was advised to continue with activities [...] Recorded Time Spinal stenosis of lumbar region 00426506 Active Sepideh heard MD [address] [place] [address] , [address], [facility] [place], [address] , [facility] 4 10:58:50 Enthesopathy of hip region 78828099 Active Sepideh heard MD [address] , [address], [place], [address], [place] [facility] 4 10:58:50 Lumbosacral radiculitis 56149519 Active Sepideh heard MD [address] , [address], [place], [address], [place] [facility] 4 10:58:50 Pseudoclaudi cation syndrome Completed 12/06/2013 Sepideh heard MD [address] , [address], [place], [address], [place] [facility] 4 15:39:47 Problem Notes None recorded. Procedures Surgical History Date Name Laterality Status Provider Name and Address Organization Details Recorded Time 01/04/20 17 Lumbar Epidural steroid injection under fluoroscopic guidance completed Sepideh Kuo MD [address] , [address], [place], [address], [place] [facility] 01/05/2017 14:24:15 12/11/19 14 Greater Trochanteric Bursa Steroid Injection completed Sepideh Kuo MD [address] , [address], [place], [address], [place] [facility] 12/11/2013 10:58:50 12/04/19 13 Lumbar Epidural steroid injection under fluoroscopic guidance completed Sepideh Kuo MD [address] , [address], [place], [address], [place] [facility] 12/05/2012 15:51:55 08/21/20 12 Lumbar Epidural steroid injection under fluoroscopic guidance completed Sepideh Kuo MD [address] , [address], [place], [address], [place] [facility] 08/23/2012 08:38:37 Carpal tunnel release completed Bettina Zapata [place] [facility] 12/27/2016 09:01:07 Other completed Bettina Zapata [place] [facility] 12/27/2016 09:20:46 Other completed Sepideh Kuo MD [address] [facility] , [address], [place], [address], [facility] - [facility] 08/10/2012 14:27:17 Other completed Sepideh Kuo MD [address] [facility] , [address], [place], [address], [facility] - Pain Management 08/10/2012 14:27:17 Arthroscopic Surgery completed Bettina Avendañoer [place] - [facility] 12/04/2012 09:39:02 Other completed Bettina Steelezier [place] - [facility] 08/10/2012 13:44:34 Imaging Results [...] Details Last Updated DateTime 4 162.56 cm 689767. 2451 g 39.5 kg/m2 56 /min 100 [...] Is Your Level Of Alcohol Consumption? None [id number] Information not available 09/05/2020 Are You Currently Employed? No [id number] Information not available 09/05/2020 Which Illicit Or Recreational Drugs Have You Used? 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 With Others And Child Information not available 08/10/2012 GED Yes [email or web address] Information no t available 08/10/2012 Marital Status Informatio n not available 08/10/2012 Sex: Unknown Functional Status None recorded. Mental Status None recorded. Family History Nothing Reported. Medical History Condition Response Neuropathy/Neuralgia Y Hyperthyroidism Y Depression Y Anxiety Disorder Y Arthritis Y Headache Y Asthma Y Gynecological HistoryNo gynecological history recorded. Obstetrics History GPAL:G 0 P 0 0 0 0 Past Encounters Encounter ID Performer Location Encounter Start Date Encounter Closed Date Diagnosis/Indication Diagnosis SNOMED-CT Code Diagnosis ICD10 Code Diagnosis Note [id number] Sepideh Kuo MD [facility] [address] [place] [address] 08/10/2012 13:05:06 08/10/2012 15:37:45 [id number] Sepideh Kuo MD [facility] [address] [facility] [place] [address] 08/21/2012 14:40:55 08/21/2012 15:48:27 [id number] Sepideh Kuo MD PAIN OFFICE [address] [facility] [place] [address] 09/21/2012 14:38:42 09/21/2012 14:50:30 [id number] Sepideh Kuo MD [facility] [address] [facility] [place] [address] 12/04/2012 14:43:16 12/04/2012 15:30:05 [id number] Sepideh Kuo MD PAIN OFFICE [address] [facility] [place] [address] 04/04/2013 09:50:29 04/04/2013 15:31:36 [id number] Sepideh Kuo MD [facility] [address] [facility] [place] [address] 12/06/2013 14:21:13 12/07/2013 09:23:01 Enthesopathy of hip region 98751965 Lumbosacra l radiculitis 97459940 Spinal charanjit nosis of lumbar region 57640881 [id number] Sepideh Kuo MD PAIN OFFICE [address] [facility] [place] [id number] 12/11/2013 09:14:36 12/11/2013 10:59:34 Spinal stenosis of lumbar region 01688607 Enthesopat hy of hip region 65700119 Lumbosacra l radiculitis 45934064 [id number] Sepideh Kuo MD PAIN OFFICE [address] [place] [address] 12/27/2016 08:36:45 12/27/2016 14:33:08 Lumbosacral radiculitis 74213828 M54.17 Displaceme nt of lumbar intervertebral disc without myelopathy 30911058 M51.26 Lumbosacra 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 27501235 M47.817 Spinal charanjit nosis of lumbar region 24950121 M48.06 Long-term drug therapy 263631760 Z79.02 [id number] Sepideh Kuo MD PAIN OFFICE [address] [place] [address] 01/04/2017 14:54:03 01/06/2017 08:36:22 Lumbosacral radiculitis 87181243 M54.17 Displaceme nt of lumbar intervertebral disc without myelopathy 59460179 M51.26 Lumbosacra 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 08111446 M47.817 Spinal charanjit nosis of lumbar region 24745177 M48.06 Long-term drug therapy 699706602 Z79.02 Health Concerns Section Related Observation LastModified by Organization Detai ls LastModified Time None Recorded Concern Status LastModified by Organization Details LastModified Time None Recorded Advance Directives Directive None Recorded Payers Encounter Date Sequence Insurance Name Policy Number Policy Smart Covered Member ID Smatr Member ID Guarantor Name 04/04/2013 1 [place] [facility] Nato Goodman [id number] Nato Goodman 12/06/2013 1 [place] [facility] Nato Goodman [id number] Nato Goodman 12/11/2013 1 [place] [facility] Nato Goodman [id number] Nato Goodman 12/27/2016 1 [facility] PLAN (MEDICAID HMO) [id number] Nato Goodman [id number] Nato Goodman 01/04/2017 1 [facility] PLAN (MEDICAID HMO) [id number] Nato Goodman [id number] Nato Goodman Notes Date Note Type Note [...] 1 years old. Sepideh Kuo MD [address] [facility] , [address], [place], [address], [facility] 04/05/2013 14:55:52 12/06/2013 text/html She [...] or bowel incontinence. Sepideh Kuo MD [address] [facility] , [address], [place], [address], [facility] 12/12/2013 13:30:10 12/11/2013 text/html She is here for a trial of right trochanteric bursal injection under lfuorscopic guidance. She has stopped her coumadin. INR is 1.2 this morning. Sepideh Kuo MD [address] [facility] , [address], [place], [address], [facility] 12/12/2013 13:32:15 12/27/2016 text/html Nato [...] and a motorized scooter for grocery shopping. Sepdieh Kuo MD [address] [facility] , [address], [place], [address], [facility] 12/31/2016 12:00:00 01/04/2017 text/html She is here for a lumbar epidural steroid injection under fluoroscopic guidance. She has stopped coumadin for 5 days and her INR is 1.0 this morning. Sepideh Kuo MD [address] [facility] , [address], [place], [address], [facility] 01/13/2017 16:01:57 OBGyn Episode No OBEpisode recorded.
--- OUTSIDE RECORDS SUMMARY | 2025-03-27 12:02 | XMS_ITS ---
Author Organization [facility] Address [address] [place] [address] Care Team Providers Care Clarifier Name Role Phone Angus GUSTAFSON, [place] Primary Care Provider Unava ilDarin Downs Unavailable [phone] REASON FOR VISIT PCP Notes & FIELD TRAFFIC INVESTIGATOR PPWK Entered Encounters Encounter Location Date Provider Diagnosis [facility] [address] [place] [address] 08/07/2024 Darin Gastelum Plan Of Treatment No Information Progress Notes * Jarocho GAMBOAB:[birth year] (63 yo F)Acc No.[id number]:08/07/2024 Patient:?Nato Gamboa :1960???Age:63 Y???Sex:Female Address: [place], [address] * true * Date:? Generated for Printi hema/Neftali/eTransmitting on:?03/27/2025 12:02 PM EDT
--- OUTSIDE RECORDS SUMMARY | 2025-03-27 12:02 | XMS_ITS ---
Author Organization [facility] Address [address] [place] [address] Care Team Providers Care Polishing Machine Operator Name Role Phone Glynn Greco MD Primary Care Provider Darin Gonzalez Unavailable [phone] REASON FOR VISIT Seen Sooner Encounters Encounter Location Date Provider Diagnosis [address] [address] 10/15/2024 Darin Gastelum Plan Of Treatment No Information Progress Notes * BEEBobAngelaB:09[birth year] (64 yo F)Acc No.[id number]:10/15/2024 Progress Notes Patient:?Nato GAMBOA Provider:?Darin Gastelum DPM :1960???Age:64 Y???Sex:Female D ate:10/15/2024 Address: [address] [place] [place], [place] Pcp:Glynn Greco MD Subjective: * Chief Complaints: [...] Gastelum DPM Date:?2023 Generated for Elke garrido/Neftali/eTransmitting on:?03/27/2025 12:02 PM EDT
--- OUTSIDE RECORDS SUMMARY | 2025-03-27 12:03 | XMS_ITS ---
Author Organization [facility] [place] Address [address] [place] [address] Care Team Providers Care Bus Boy Name Role Phone Denise Greco MDh Primary Care Provider Darin Gonzalez Unavailable [phone] Allergies No Known Allergies REASON FOR VISIT [...] as needed Orally Once a day Active Vienna Carbonate ER 450 MG 1 tablet at [...] Osteoarthritis of midtarsal joint of left foot (4374482024613804 ) Osteoarthritis of midtarsal joint of left foot (M19.072) Active confirmed Problem Osteoarthritis of midtarsal joint of right foot (2990301028528567 ) Osteoarthritis of midtarsal joint of right foot (M19.071) Active confirmed Vital Signs Height 5 ft 2 in in 08/09/2024 Weight 227 lbs 08/09/2024 BMI 41.51 kg/m2 08/09/2024 Encounters Encounter Location Date Provider Diagnosis [facility] [place] [address] [address] 08/09/2024 Darin Oriana Pain in left foot [...] * Jarocho GAMBOAB:[birth year] 56 (64 yo F)Acc No.[id number]:08/09/2024 Progress Notes Patient:?Nato GAMBOA Provider:?Darin Gastelum DPM :1960???Age:63 Y???Sex:Female D ate:08/09/2024 [facility] Pcp:Glynn Greco MD Subjective: * Chief Complaints: [...] Tablet 1 tablet Orally Once a day Vienna Carbonate ER 450 MG Tablet Extended Release [...] 1 tablet Orally Once a day Taking Vienna Carbonate ER 450 MG Tablet Extended Release [...] ray : Foot, right 3V * Procedure Codes:?14422 X-RAY EXAM OF LEFT FOOT 3V, Modifiers: 26 , CH14273 X-RAY EXAM OF RIGHT FOOT 3V, Modifiers: [...] exercise to failure, expense, systemic complications, infection, [id number], prolongued postop course. Patient questions re: the various treatment options available, their successes and potential failures, and filler leaf cutter long effects were discussed and the answers were [...] Gastelum DPM Date:?2023 Generated for Elke garrido/Neftali/Kirill on:?03/27/2025 12:02 PM EDT History and Physical Notes * [...]
--- OUTSIDE RECORDS SUMMARY | 2025-03-27 12:03 | XMS_ITS | Clinical Summary ---
Author Organization [employer] Address [address] [place] [address] 7t [place] [address] Care Team Providers Care Diet Aid Name Role Phone Unavailable Primary Care Provider [...] 22 Active cholecalciferol (Vitamin D-3) 1.25 MG (90473 UT) capsule cholecalciferol (vitamin D3) 1,250 mcg [...] 16 Active ergocalciferol (Vitamin D2) 1.25 MG (85387 UT) capsule Take 1 capsule by mouth [...] Description 02/26/2025 1:30 PM EDT Office Visit [facility] [address] [place] [address] Yuliana Jung DDS 01/30/2025 8:00 AM EDT Office Visit [facility] [address] [place] [address] Nona Montanez Dental calculus (Primary Dx); Encounter for dental examination; Localized gingival recession 12/28/2024 Telephone [facility] [address] [place], [place] [phone] Yuliana Jung DDS referral to [place] [facility] from Last 3 Months Social [...] Office Visit [facility] [address] [place] [address] Nona Montanez Health Maintenance Due Date Last [...] 2 - PCV) 11/09/2020 11/09/2019 COVID-19 Vaccine (3 - season) 2024 04/21/2021, 03/25/2021 Dental Oral [...] AM EDT from Last 3 Months Insurance [facility] < 65 [facility]
== END 2025-03-27 11:37 | disposition home or self-care (01) ==
LOC: HO.HPS 10:44
PROVIDERS: PCP Internal Medicine; Visit Provider Hospitalist
DX: G47.33 Obstructive sleep apnea (adult) (pediatric) (principal); J45.41 Moderate persistent asthma with (acute) exacerbation; R00.2 Palpitations
CPT/HCPCS: 99204

== ENCOUNTER → 2025-03-27 10:44 | Outpatient (REF) | payer OTHER, SELFPAY ==
--- NOTE | 2025-03-27 11:43 | ECG_ITS ---
Test Reason : COPD Blood Pressure : */* mmHG Vent. Rate : 56 BPM Atrial Rate : 56 BPM P-R Int : 142 ms QRS Dur : 82 ms QT Int : 428 ms P-R-T Axes : 33 16 21 degrees QTcB Int : 413 ms Sinus bradycardia Otherwise normal ECG When compared with ECG of 13-May-2024 12:56, No significant change was found Referred By: Evelio Haro Electronically Signed By: KITA RIVERS
--- OUTSIDE RECORDS SUMMARY | 2025-03-27 13:05 | XMS_ITS | Encounter Summary ---
Author Organization [employer] Address [address] [place] [address] 7t [place] [address] Care Team Providers Care Digital Media Representative Name Role Phone Unavailable Primary Care Provider Unavailabl e Encounter Details Date Type Department Care Team (Latest Contact Info) Description 01/15/2022 Abstract [facility] CONVERSIONS Dental, Provider, DDS Social [...] Description 08/05/2025 8:00 AM EDT Office Visit [facility] [address] [place] [address] Nona Montanez documented as of this encounter Visit Diagnoses Not on filedocumented in this encounter
--- OUTSIDE RECORDS SUMMARY | 2025-03-27 13:05 | XMS_ITS | Encounter Summary ---
Author Organization [employer] Address [address] [place] [address] 7t [place] [address] Care Team Providers Care Retail Leasing Agent Name Role Phone Unavailable Primary Care Provider Unavailabl e Reason for Visit * Reason Onset Date Comments referral to [place] [facility] y 12/28/2024 Encounter Details Date Type Department Care Team ([facility] st Contact Info) Description 12/28/2024 Telephone [facility] [address] [place] [address] Yuliana Jung, DDS [address] [place], [place] [phone] referral to [place] [facility] Social History Tobacco Use Types [...] referral faxed over to [facility] in [place]. They state they have not received. Faxed over again today from [facility] ariane CROWLEY documented in this encounter Plan of Treatment Upcoming Encounters Date Type Department Care Team (Late st Contact Info) Description 08/05/2025 8:00 AM EDT Office Visit [facility] [address] [place] [address] Nona Montanez documented as of this encounter Visit Diagnoses Not on filedocumented in this encounter
--- OUTSIDE RECORDS SUMMARY | 2025-03-27 13:05 | XMS_ITS | Encounter Summary ---
Author Organization [employer] Address [address] [place] [address] 7t [place] [address] Care Team Providers Care Registration Scheduling Specialist Name Role Phone Unavailable Primary Care Provider Unavailabl e Reason for Visit * Reason Onset Date Comments crown PA 03/12/2024 Encounter Details Date Type Department Care Team ([facility] st Contact Info) Description 03/12/2024 Telephone [facility] [address] [place] [address] Anson Ledezma, DMD [address] [place] [address] crown PA Social History Tobacco Use Types [...] Description 08/05/2025 8:00 AM EDT Office Visit [facility] [address] [place] [address] Nona Montanez documented as of this encounter Visit Diagnoses Not on filedocumented in this encounter
--- OUTSIDE RECORDS SUMMARY | 2025-03-27 13:05 | XMS_ITS | Clinical Summary ---
Author Organization [employer] Address [address] [place] [address] 7t [place] [address] Care Team Providers Care Cartridge Loading Operator Name Role Phone Unavailable Primary Care Provider [...] 22 Active cholecalciferol (Vitamin D-3) 1.25 MG (23032 UT) capsule cholecalciferol (vitamin D3) 1,250 mcg [...] 16 Active ergocalciferol (Vitamin D2) 1.25 MG (83333 UT) capsule Take 1 capsule by mouth [...] Description 02/26/2025 1:30 PM EDT Office Visit [facility] [address] [place] [address] Yuliana Jung DDS 01/30/2025 8:00 AM EDT Office Visit [facility] [address] [place] [address] Nona Montanez Dental calculus (Primary Dx); Encounter for dental examination; Localized gingival recession 12/28/2024 Telephone [facility] [address] [place], [place] [phone] Yuliana Jung DDS referral to [place] [facility] from Last 3 Months Social [...] Description 08/05/2025 8:00 AM EDT Office Visit [facility] [address] [place] [address] Nona Montanez Health Maintenance Due Date Last [...] AM EDT from Last 3 Months Insurance [facility] ONE [facility] < 65 [facility]
--- OUTSIDE RECORDS SUMMARY | 2025-03-27 13:05 | XMS_ITS | Encounter Summary ---
Author Organization [employer] Address [address] [place] [address] 7t [place] [address] Care Team Providers Care Overhead Garage Door Hanger Name Role Phone Unavailable Primary Care Provider Unavailabl e Encounter Details Date Type Department Care Team (Latest Contact Info) Description 05/22/2019 Abstract [facility] CONVERSIONS Dental, Provider, DDS Social History Tobacco [...] Office Visit [facility] [address] [place] [address] Nona Montanez documented as of this encounter Visit Diagnoses Not on filedocumented in this encounter
== END ==
LOC: HO.CARD 10:44
PROVIDERS: PCP Internal Medicine; Visit Provider Hospitalist
DX: J44.9 Chronic obstructive pulmonary disease, unspecified (principal); G47.33 Obstructive sleep apnea (adult) (pediatric); J45.41 Moderate persistent asthma with (acute) exacerbation; R00.2 Palpitations
CPT/HCPCS: 93005; 99202

== ENCOUNTER → 2025-03-27 11:43 | Outpatient (BNV) | payer OTHER, SELFPAY | PROVIDERS: PCP Internal Medicine; Visit Provider Internal Medicine | DX: R00.1 Bradycardia, unspecified (principal) | CPT/HCPCS: 93010 ==

== ENCOUNTER 2025-05-23 08:35 | Outpatient (REF) | payer OTHER, SELFPAY ==
--- OUTSIDE RECORDS SUMMARY | 2024-10-15 06:00 | XMS_ITS ---
Author Organization [facility] Address [address] [place] [address] Care Team Providers Care Diamond Powder Technician Name Role Phone Angus GUSTAFSON, Glynn Primary Care Provider Darin Gonzalez Unavailable [phone] REASON FOR VISIT Seen Sooner Encounters Encounter Location Date Provider Diagnosis [address] [address] 10/15/2024 Darin Gastelum Plan Of Treatment No Information Progress Notes * Jarocho GAMBOAB:[birth year] (64 yo F)Acc No.[id number]:10/15/2024 Progress Notes Patient: Nato BAIN Provider: Shanna Gastelum DPM :1960 A ge:64 Y S ex:Female Date:10/15/2024 Address: [address] [place], [place] Pcp:Glynn Greco MD Subjective: * Chief Complaints: [...] 12/15/2023 Generated for Printi ng/Faxing/eTransmitting on: 0 05/23/2025 08:42 AM EDT
--- OUTSIDE RECORDS SUMMARY | 2025-05-23 08:43 | XMS_ITS | Data Portability ---
Author Organization [facility] Address [address] [facility] [place] [address] Care Team Providers Care Wetlands Technician Name Role Phone LEDY LOMBARDI Primary Care Provider [phone] Assessment Encounter Date Assessment Date Assessment LastModified by Organization Details LastModified Time 04/04/2013 04/04/2013 51 year old bora n with low back pain radiating into the left lower extremity. She is here for a follow up after a trial of Lumbar epidural steroid injections under fluroscopic guidance . She reports good pain relief for 3 months. Her pain is slowly coming back. She states she has lower abdominal pain now and that is her worse pain today. I spoke with Dr. Renee, Her PCP and she will follow up with her disability case manager . She states she had a colonoscopy a few years back which was within normal limits. She can return for a repeat injection after seeing the disability case manager. [email or web address] Not available 04/05/2013 10:19:04 12/06/2013 12/06/2013 Nato Goodman is a 53 year old woman with right hip pain. On exam ,she has tenderness in the right trochanteric bursal region . Trial of right trochanteric bursal steroid injections under fluroscopic guidance was recommended. The risks and benefits of the procedure were discussed in detail. She wishes to proceed. An appointment has been booked for the same. She needs a lokie driver on the day of the procedure. [...] for a trial of right trochanteric bursal steroid injections under fluroscopic guidance The risks and benefits of the procedure were discussed in detail. She wishes to proceed. She has stopped her coumadin. Her INR is 1.2 today. She was advised to restart her coumadin today. She will call Dr. Renee's office for dosing of the coumadin tonight. [email or web address] Not available 12/11/2013 10:58:50 12/27/2016 12/27/2016 Nato [...] booked for the same. She needs a lokie driver on the day of the procedure. She is on coumadin. She can stop coumadin for 5 days prior to the procedure per her PCP. Her INR needs to be 1.1 or less on the day of the procedure to proceed. She will have it checked at [facility] and fax us the results. [email or web address] Not available 12/27/2016 14:28:14 01/04/2017 01/04/2017 Nato [...] stat on 01/04. Please fax results to [phone] . Thanks. 2016 017 [facility] ([facility]), [address] [facility], [place], [address], 7 17:12:59 Referral None recorded. Procedures None recorded. Surgeries None recorded. Imaging None recorded. Medication Orders lidocaine 5 % topical patch 2013 014 [facility]armacy #[id number], [address] [facility], [place], [address], 7 08:58:28 Patient TargetsNo targets recorded. Patient Instructions Encounter Date Encounter Id Patient Instructions Last Modified By Organization Details Last Modified Time 04/04/2013 [id number] She was advised against bed rest lasting longer than four days and to continue activities as tolerated. [email or web address] Not available 04/05/2013 10:16:09 12/06/2013 [id number] She was advised against bed rest lasting longer than four days and to continue activities as tolerated. [email or web address] Not available 12/07/2013 09:19:05 12/11/2013 [id number] She was advised against bed rest lasting longer than four days and to continue activities as tolerated. [email or web address] Not available 12/11/2013 10:55:58 12/27/2016 [id number] She was advised to continue with activities as tolerated. [email or web address] Not available 12/27/2016 14:29:02 01/04/2017 [id number] She was advised to continue with activities [...] Recorded Time Spinal stenosis of lumbar region 20435390 Active Sepideh heard MD [address] [facility] , [address], [place], [address], [place] [facility] 4 10:58:50 Enthesopathy of hip region 05370719 Active Sepideh heard MD [address] [facility] [address] , [address], [place], [address], [place] [facility] 4 10:58:50 Lumbosacral radiculitis 91501097 Active Sepideh heard MD [address] , [address], [facility] [place], [address], [place] [facility] 4 10:58:50 Pseudoclaudi cation syndrome Completed 12/06/2013 Sepideh heard MD [address] , [address], [facility] [place], [address], [place] [facility] 4 15:39:47 Problem Notes None recorded. Procedures Surgical History Date Name Laterality Status Provider Name and Address Organization Details Recorded Time 01/04/20 17 Lumbar Epidural steroid injection under fluoroscopic guidance completed Sepideh Kuo MD [address] , [address], [place], [address], [place] [facility] 01/05/2017 14:24:15 12/11/19 14 Greater Trochanteric Bursa Steroid Injection completed Sepideh Kuo MD [address] , [address], [place], [address], [place] [facility] 12/11/2013 10:58:50 12/04/19 13 Lumbar Epidural steroid injection under fluoroscopic guidance completed Sepideh Kuo MD [address] , [address], [place], [address], [place] [facility] 12/05/2012 15:51:55 08/21/20 12 Lumbar Epidural steroid injection under fluoroscopic guidance completed Sepideh Kuo MD [address] , [address], [place], [address], [place] [facility] 08/23/2012 08:38:37 Carpal tunnel release completed Bettina Zapata [place] [facility] 12/27/2016 09:01:07 Other completed Bettina Zapata [place] [facility] 12/27/2016 09:20:46 Other completed Sepideh Kuo MD [address] , [address], [place], [address], [place] [facility] 08/10/2012 14:27:17 Other completed Sepideh Kuo MD [address] [facility] , [address], [place], [address], [place] [facility] 08/10/2012 14:27:17 Arthroscopic Surgery completed Bettina Zapata [place] - [facility] 12/04/2012 09:39:02 Other completed Bettina Zapata [place] [facility] 08/10/2012 13:44:34 Imaging Results None [...] Available No t Available Vitals Date Recorded Body height Body weight Body mass index (BMI) Heart rate Oxygen saturation Oxygen saturation in Arterial blood by Pulse oximetry Systolic And Diastolic Provider Name and Address Organization Details Last Updated DateTime 4 162.56 cm 358279. 2451 g 39.5 kg/m2 56 /min 100 % 100 % 158/59 mm[Hg] Bettina Zapata [place] [facility] 4 15:20:11 Date Recorded Heart rate Oxygen saturation Oxygen saturation in Arterial blood by Pulse oximetry Systolic And Diastolic Provider Name and Address Organization Details Last Updated DateTime 12/11/2013 55 /min 99 % 99 % 157/956 mm[Hg] Bettina Zapata [place] - [facility] 4 09:31:38 Date Recorded Body height Heart rate Oxygen saturation Oxygen saturation in Arterial blood by Pulse oximetry Systolic And Diastolic Provider Name and Address Organization Details Last Updated DateTime 7 160.02 cm 59 /min 98 % 98 % 167/64 mm[Hg] Bettina Zapata [place] - [facility] 7 08:56:22 Date Recorded Body height Heart rate Oxygen saturation Oxygen saturation in Arterial blood by Pulse oximetry Systolic And Diastolic Provider Name and Address Organization Details Last Updated DateTime 7 160.02 cm 61 /min 99 % 99 % 155/80 mm[Hg] Bettina Zapata [place] - [facility] 7 15:08:38 Date Recorded Heart rate Oxygen saturation Oxygen saturation in Arterial blood by Pulse oximetry Systolic And Diastolic Systolic And Diastolic Provider Name and Address Organization Details Last Updated DateTime 3 73 /min 99 % 99 % 164/104 mm[Hg] 150/90 mm[Hg] Bettina Zapata [place] - [facility] 3 10:11:32 Social History Question Answer Notes LastModified by Organizat ion Details LastModified Time Tobacco Smoking Status Never Smoker Not Available [facility] 09/05/2020 03:16:10 Which Illicit Or Recreational Drugs Have You Used? No [id number] Information not available 09/05/2020 Live Alone Or With Others? With Others And Child [email or web address] Information not available 08/10/2012 GED Yes [email or web address] Information no t available 08/10/2012 Marital Status [email or web address] Informatio n not available 08/10/2012 Sex: Unknown Functional Status Question Answer Note LastModified by Organizat ion Details LastModified Time What is your level of alcohol consumption? None [id number] Information not available 09/05/2020 Are you currently employed? 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 Family History Nothing Reported. Medical History Condition Response Neuropathy/Neuralgia Y Hyperthyroidism Y Depression Y Anxiety Disorder Y Arthritis Y Headache Y Asthma Y Gynecological HistoryNo gynecological history recorded. Obstetrics History GPAL:G 0 P 0 0 0 0 Past Encounters Encounter ID Performer Location Encounter Start Date Encounter Closed Date Diagnosis/Indication Diagnosis SNOMED-CT Code Diagnosis ICD10 Code Diagnosis Note [id number] Sepideh Kuo MD PAIN OFFICE [address] [place] [address] 08/10/2012 13:05:06 08/10/2012 15:37:45 [id number] Sepideh Kuo MD PAIN OFFICE [address] [place] [address] 08/21/2012 14:40:55 08/21/2012 15:48:27 [id number] Sepideh Kuo MD PAIN OFFICE [address] [place] [id number] 09/21/2012 14:38:42 09/21/2012 14:50:30 [id number] Sepideh Kuo MD PAIN OFFICE [address] [place] [address] 12/04/2012 14:43:16 12/04/2012 15:30:05 [id number] Sepideh Kuo MD PAIN OFFICE [address] [place] [address] 04/04/2013 09:50:29 04/04/2013 15:31:36 [id number] Sepideh Kuo MD PAIN OFFICE [address] [facility] [place] [address] 12/06/2013 14:21:13 12/07/2013 09:23:01 Enthesopathy of hip region 07626509 Lumbosacra l radiculitis 18659178 Spinal charanjit nosis of lumbar region 55110332 [id number] Sepideh Kuo MD PAIN OFFICE [address] [place] [address] 12/11/2013 09:14:36 12/11/2013 10:59:34 Spinal stenosis of lumbar region 97119012 Enthesopat hy of hip region 41031247 Lumbosacra l radiculitis 96209355 [id number] Sepideh Kuo MD PAIN OFFICE [address] [place] [id number] 12/27/2016 08:36:45 12/27/2016 14:33:08 Lumbosacral radiculitis 32021772 M54.17 Displaceme nt of lumbar intervertebral disc without myelopathy 49335882 M51.26 Lumbosacra 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 50410684 M47.817 Spinal charanjit nosis of lumbar region 43432041 M48.06 Long-term drug therapy 258901385 Z79.02 [id number] Sepideh Kuo MD PAIN OFFICE [address] [place] [address] 01/04/2017 14:54:03 01/06/2017 08:36:22 Lumbosacral radiculitis 47630357 M54.17 Displaceme nt of lumbar intervertebral disc without myelopathy 69666613 M51.26 Lumbosacra 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 04731061 M47.817 Spinal charanjit nosis of lumbar region 41501568 M48.06 Long-term drug therapy 657656574 Z79.02 Health Concerns Section Related Observation LastModified by Organization Detai ls LastModified Time None Recorded Concern Status LastModified by Organization Details LastModified Time None Recorded Advance Directives Directive None Recorded Payers Insurance Date Sequence Insurance Name Policy Number Policy Smart Covered Member ID Smart Member ID Guarantor Name 12/20/2016 1 [place] [facility] Nato Goodman [id number] Nato Goodman 02/23/2021 1 [facility] NET PLAN (MEDICAID HMO) [id number] Nato Goodman [id number] Nato Goodman Notes Date Note Type Note [...] 1 years old. Sepideh Kuo MD [address] , [address], [place], [address], [facility] - Pain Management 04/05/2013 14:55:52 [...] bowel incontinence. Sepideh Kuo MD [address] [facility] , [address], [place], [address], [facility] - Pain Management 12/12/2013 13:30:10 12/11/2013 text/html She is here for a trial of right trochanteric bursal injection under lfuorscopic guidance. She has stopped her coumadin. INR is 1.2 this morning. Sepideh Kuo MD [address] , [address], [place], [address], [facility] - Pain Management 12/12/2013 13:32:15 [...] grocery shopping. Sepideh Kuo MD [address] [facility] , [address], [place], [address], [facility] - Pain Management 12/31/2016 12:00:00 01/04/2017 text/html She is here for a lumbar epidural steroid injection under fluoroscopic guidance. She has stopped coumadin for 5 days and her INR is 1.0 this morning. Sepideh Kuo MD [address] [place] [address] , [address], [place], [address], [place] [facility] 01/13/2017 16:01:57 OBGyn Episode No OBEpisode recorded.
--- OUTSIDE RECORDS SUMMARY | 2025-05-23 08:43 | XMS_ITS | Encounter Summary ---
Author Organization [employer] Address [address] [place] [address] 7 [place] [address] Care Team Providers Care Stenographic Court Reporter Name Role Phone Unavailable Primary Care Provider Unavailabl e Reason for Visit * Reason Onset Date Comments referral to [place] [facility] y 12/28/2024 Encounter Details Date Type Department Care Team (Late st Contact Info) Description 12/28/2024 Telephone [facility] [address] [place] [address] Yuliana Jung, DDS [address] [place], [place] [phone] referral to [place] [facility] Social History Tobacco Use Types [...] referral faxed over to [facility] Surgery in [place]. They state they have not received. Faxed over again today from [facility] ariane CROWLEY documented in this encounter Plan of Treatment Upcoming Encounters Date Type Department Care Team (Late st Contact Info) Description 08/05/2025 8:00 AM EDT Office Visit [facility] [address] [place] [address] Nona Montanez documented as of this encounter Visit Diagnoses Not on filedocumented in this encounter
[2025-05-23 08:54] LABS: MANUAL DIFF FLAG NO
[2025-05-23 09:39] LABS: Hematocrit 34.5 % (37.0-47.0); Hemoglobin 11.3 g/dl (12.0-16.0); Imm Gran Abs Auto 0.02 X10*3/uL (0.00-0.03); Imm Gran Pct Auto 0.3 % (0.0-0.4); Lymphocytes Absolute Auto 2.6 X10*3/uL (1.2-4.9); Mean Corpuscular HGB Conc 32.8 g/dl (31.0-35.0); Mean Corpuscular Hemoglobin 27.0 pg (27.0-33.0); Mean Corpuscular Volume 82.3 fL (80.0-98.0); NRBC Abs Auto 0.000 X10*3/uL (0.0-0.012); NRBC Pct Auto 0.0 /100WBC (0.0-0.2); Platelet Count 246 X10*3/uL (160-400); Red Blood Count 4.19 X10*6/uL (4.20-5.50); White Blood Count 6.6 X10*3/uL (4.8-10.8)
[2025-05-23 10:16] LABS: Alanine Aminotransferase 12 U/L (0-31); Albumin Level 4.2 g/dL (3.5-5.0); Alkaline Phosphatase 80 U/L (39-117); Anion Gap 11 (12-20); Aspartate Amino Transferase 28 U/L (5-31); Blood Urea Nitrogen 15 mg/dL (9-16); Calcium 8.9 mg/dL (8.4-10.2); Carbon Dioxide 24 mmol/L (22-29); Chloride 109 mmol/L (96-108); Cholesterol 190 mg/dL (<200); Estimated Glomerular Filt Rate 60; HDL Cholesterol 57 mg/dL (>40); Potassium 3.9 mmol/L (3.3-5.1); Sodium 140 mmol/L (135-145); Total Protein 7.2 g/dL (6.5-8.0); Triglycerides 87 mg/dL (<150)
[2025-05-23 10:21] LABS: Appearance Urine Clear; Glucose Urine UA Negative (Negative); PH 5.5 (5.0-9.0); Specific Gravity - Urine 1.015 (1.005-1.025)
[2025-05-23 11:24] LABS: Folate 12.5 ng/mL (> or = 4.0); Vitamin B12 346 pg/mL (200-900)
[2025-05-23 11:42] LABS: Free T4 (Free Thyroxine) 0.91 ng/dL (0.71-1.85)
== END 2025-05-23 08:36 | disposition home or self-care (01) ==
LOC: HO.LAB 08:35
PROVIDERS: PCP Internal Medicine; Visit Provider Internal Medicine
DX: D64.9 Anemia, unspecified (principal); E78.00 Pure hypercholesterolemia, unspecified; R30.0 Dysuria; E53.8 Deficiency of other specified B group vitamins; E55.9 Vitamin D deficiency, unspecified
CPT/HCPCS: 36415; 80053; 80061; 81003; 82306; 82607; 82746; 84439; 84443; 85025

== ENCOUNTER 2025-05-28 09:52 | Outpatient (AMB) | payer OTHER, SELFPAY ==
--- OUTSIDE RECORDS SUMMARY | 2024-10-15 06:00 | XMS_ITS ---
Author Organization [facility] Address [address] [place] [address] Care Team Providers Care Policy Value Calculator Name Role Phone Angus GUSTAFSON, Glynn Primary Care Provider Darin Gonzalez Unavailable [phone] REASON FOR VISIT Seen Sooner Encounters Encounter Location Date Provider Diagnosis [address] [address] 10/15/2024 Darin Gastelum Plan Of Treatment No Information Progress Notes * Jarocho GAMBOAB:[birth year] (64 yo F)Acc No.[id number]:10/15/2024 Progress Notes Patient: Nato BAIN Provider: Shanna Gastelum DPM :1960 A ge:64 Y S ex:Female Date:10/15/2024 Address: [address] [place], [place] Pcp:Glynn Greco MD Subjective: * Chief Complaints: [...] 12/15/2023 Generated for Printi ng/Faxing/eTransmitting on: 0 05/28/2025 10:32 AM EDT
--- NOTE | 2025-05-28 09:56 | A.OFFPC_ITS ---
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 Accompanied by: Self / Same As Patient Allergies No Known Allergies Allergy (Verified 05/28/25 10:38) Medication List - Last Reconciled 05/28/25 by Glynn Greco MD acetaminophen 325 mg PO DAILY PRN albuterol sulfate 2.5 mg inhalation QID PRN albuterol sulfate 90 mcg/actuation (Ventolin HFA) 2 puffs inhalation Q6H PRN 30 days apixaban (Eliquis) 5 mg PO BID atorvastatin 80 mg PO DAILY 90 days [COMPRESSION STOCKINGS (pantyhose) As directed] cyanocobalamin (vitamin B-12) 1,000 mcg PO DAILY 90 days dorzolamide-timolol 22.3-6.8 mg/mL 1 drp ophthalmic (eye) DAILY ergocalciferol (vitamin D2) 1,250 mcg PO QWEEK 3 months fluticasone furoate 100 mcg/actuation (Arnuity Ellipta) inhalation DAILY fosfomycin tromethamine 3 grams PO Q3D 6 days gabapentin 600 mg PO TID latanoprost 0.005% 1 drp ophthalmic (eye) BEDTIME lithium carbonate ER 450 mg PO BID lorazepam 0.5 mg PO QAM PRN lurasidone 80 mg PO DAILY omeprazole 20 mg PO DAILY PRN polyethylene glycol 3350 (Miralax) 238 grams PO ONCE [rollator walker with seat As directed] terconazole 0.8% 1 appful vaginal BEDTIME 3 days tramadol 50 mg PO BID PRN 30 days venlafaxine ER 150 mg PO QPM Tobacco use date assessed: 05/28/25 Fall risk assessment: No Falls in past year Last assessed Fall Risk: 05/28/25 Dental Screening Dental Screen Date: 05/28/25 Did you have a dental visit in the last 12 months?: Yes Did you have a dental problem in the last 6 months where you did not have access to dental care?: No Was dental information given to patient?: Patient has dentist HPI 4mt f/u HPI Details Patient comes in today for her follow-up visit States that she feels okay She denies any headaches or dizziness Denies any chest pains, no increased shortness of breath No nausea/vomiting, no abdominal pain No change in bowel habits noted She is still experiencing increased joint pains - relates that she experienced only some temporary relief of her joint pain from some injections from orthopedics previously SHe has been experiencing frequent pain in her right wrist and on and off numbness in her right hand lately - states that this is the wrist that she had surgery done on by Dr. Fregoso years ago for carpal tunnel and it is starting to bother her again She recalls being sent for NCV months ago but she did not go for the procedure and now wants to have it ordered again She still has trouble sleeping at night at times - was taking Ambien in the past but was taken off this Rx by psychiatry and started on some other unrecalled Rx, which she states helps somewhat Adds that Dr. Haro referred her to cardiology at her last pulmonary follow up visit a couple of months ago for further evaluation of some possible irregular heartbeats that he noticed on her file Needs her Gabapentin Rx refilled She had her follow-up labs done a few days ago - to discuss her results FOR[facility], [facility] Medical History (Updated 05/28/25 @ 10:48 by Glynn Greco MD) Bradycardia ROBERTO CARLOS on CPAP Insomnia Morbid obesity with BMI of 40.0-44.9, adult Pure hypercholesterolemia Exertional dyspnea Fatigue Cough Lumbar degenerative disc disease Phlegmasia cerulea dolens Obstructive sleep apnea COVID-19 Hyperthyroidism Anxiety Obstructive sleep apnea Condyloma acuminata Vitamin B12 deficiency Lung granuloma Phlegmasia cerulea dolens Chronic low back pain Vitamin D deficiency Obesity (BMI 30-39.9) Fibromyalgia Depression Neuropathy DVT (deep venous thrombosis) Asthma DDD (degenerative disc disease) Surgical History Hx of cholecystectomy History of esophagogastroduodenoscopy (EGD) S/P laparoscopic appendectomy History of embolectomy Benign neoplasm of neck History of colonoscopy History of bilateral tubal ligation History of carpal tunnel release History of bilateral oophorectomy S/P IVC filter Family History Father Liver cirrhosis Cancer Mother Heart attack Coronary artery disease Asthma Diabetes mellitus Brother No problems noted. Sister No problems noted. Sister No problems noted. Sister No problems noted. Sister No problems noted. Sister No problems noted. Sister No problems noted. Sister No problems noted. Sister No problems noted. Sister No problems noted. Sister No problems noted. Sister No problems noted. Sister No problems noted. Sister No problems noted. Paternal Aunt Colon cancer Son Histiocytosis Son No problems noted. Son No problems noted. 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 1. Little interest or pleasure in doing things: several days 2. Feeling down, depressed, or hopeless: several days 3. Trouble falling or staying asleep, or sleeping too much: more than half the days 4. Feeling tired or having little energy: more than half the days 5. Poor appetite or overeating: several days 6. Feeling bad about yourself - or that you are a failure or have let yourself or your family down: not at all 7. Trouble concentrating on things, such as reading the newspaper or watching television: several days 8. Moving or speaking so slowly that other people could have noticed. Or the opposite - being so fidgety or restless that you have been moving around a lot more than usual: not at all 9. Thoughts that you would be better off or of hurting yourself in some way: not at all Total score: 8 Depression Screening Interpretation: Positive Depression Screening Follow-up: Existing condition and In treatment Depression Screening Done: Yes 04300 - PHQ-9 Billing: Yes Source: Developed by Drs. Jamel Hong, Carmen Villanueva, Gilbert Jara and colleagues, with an educational son from [employer]. Thrive Questionnaire Date Thrive assessed: 05/28/25 I am a: Patient What is your living situation today?: I have a steady place to live Within the past 12 months, did the food you bought not last and you didn't have the money to get more?: I choose not to answer this question Within the past 12 months, did you worry whether your food would run out before you got money to buy more?: Never true Do you have trouble paying for medicines?: No Do you have trouble getting transportation to medical appointments?: No Do you have trouble paying your heating and electricity bill?: No Do you have trouble taking care of your child, family member or friend?: I choose not to answer this question Do you have trouble with day-to-day activities such as bathing, preparing meals, shopping, managing finances, etc.?: Yes Are you currently unemployed and looking for a job?: No Are you interested in more education?: No Please select the resources that you would like help with: None Currently or been in a relationship where the following occur: No concerns reported THRIVE Score: 0 AUDIT C Alcohol Use Questionnaire (AUDIT-C) 1. How often do you have a drink containing alcohol?: Never 3. How often do you have six or more drinks on one occasion?: Never Total Score: 0 Score Reviewed/Action Taken: Yes FIDELIA-7 AMB Questionnaire FIDELIA-7 Date FIDELIA - 7 assessed: 05/28/25 Feeling nervous, anxious, or on edge: 0 = Not at all Not being able to stop or control worryin = Not at all Worrying too much about different things: 0 = Not at all Trouble relaxin = Not at all Being so restless that it is hard to sit still: 0 = Not at all Becoming easily annoyed or irritable: 0 = Not at all Feeling afraid as if something awful might happen: 0 = Not at all Total FIDELIA-7 score (0-4 normal; 5-9 mild; 10-14 moderate; 15-21 severe): 0 Source: Developed by Drs. Jamel Hong, Carmen Villanueva, Gilbert Jara and colleagues, with an educational son from [employer]. Review of Systems Const Denies chills, Reports difficulty sleeping, Reports fatigue (chronic), Denies fever(s) and Denies headache(s) ENT Denies dysphagia, Denies dizziness, Denies otalgia, Denies headache(s), Reports neck pain, Denies odynophagia and Denies sore throat Card Denies chest pain, Denies palpitations and Reports dyspnea on exertion (mild; chronic) Resp Denies chest congestion, Denies cough and Reports dyspnea on exertion (mild; chronic) GI Denies abdominal pain, Denies constipation, Denies dysphagia, Denies heartburn, Reports loose stools (at times - s/p cholecytectomy; stool sometimes with (+) mucus), Denies nausea, Denies odynophagia and Denies vomiting Denies difficulty voiding, Denies nocturia, Denies dysuria (but sometimes c/o bladder pressure ), Reports urinary incontinence, Denies urinary urgency and Denies vaginal discharge Musc Reports back pain, Reports arthralgias (involving multiple joints - chronic), Denies joint swelling, Reports neck pain and Reports stiffness Skin/Breast Denies rash Neuro Denies dizziness, Denies headache(s) and Reports paresthesias (over the lateral aspect of the right thigh - on and off) Psych Denies anxiety Endo Reports fatigue (chronic) and Denies palpitations Physical exam (Primary Care) Vital Signs: Last Vital Signs Pulse 54 05/28/25 09:57 BP 122/80 05/28/25 09:57 Pulse Ox 99 05/28/25 09:57 Oxygen Delivery Method Room Air 05/28/25 09:57 BMI result Body Mass Index 36.0 Tobacco/Smoking Status: Tobacco use Status Tobacco use date assessed 05/28/25 05/28/25 10:05 Patient Tobacco Use Status Never used Tobacco 05/28/25 10:05 e-Cigarette/Vaping Use Never Used 05/28/25 10:05 PHQ-9: PHQ-9 Score PHQ-9: Total score 8 05/28/25 10:41 Depression Screening Interpretation: Positive Depression Screening Follow-up: Existing condition and In treatment Thrive Assessment: Date of Thrive Assessment Date Thrive assessed 05/28/25 05/28/25 10:05 Currently or been in a relationship where the following occur: No concerns reported Const General: no acute distress and alert HENMT Ears: TM's normal bilaterally and EAC's normal Throat: Yes posterior oropharynx normal and Yes tonsils normal (no TP congestion) Neck Neck: No lymphadenopathy Thyroid: Thyroid normal Resp Auscultation: clear to auscultation bilaterally, no rales, no wheezes and diminished lung sounds (slightly) bilateral Cardio Rate: regular rate Rhythm: regular rhythm Heart sounds: no murmurs GI Palpation (GI): Soft to palpation and nontender Auscultation: normal bowel sounds General: Yes no CVA tenderness Back/Spine/Pelvis Back: no CVA tenderness Cervical Spine: cervical muscular tenderness (bilateral) Thoracic/Lumbar Spine: paraspinal muscle tenderness bilaterally and lumbar spinal tenderness (mild) Skin Rashes: no rashes Extrem General: No clubbing, No cyanosis and Yes edema (1+ bipedal edema) Right upper extremity: wrist Details: tenderness Location: of the volar wrist; Phalen's positive Results Reviewed Results Reviewed: Laboratory Tests 05/23/25 05/23/25 08:52 08:53 WBC 6.6 Hgb 11.3 L Hct 34.5 L Plt Count 246 Sodium 140 Potassium 3.9 Creatinine 0.94 Estimated GFR 60 Fasting Glucose 93 Calcium 8.9 AST 28 ALT 12 Triglycerides 87 Cholesterol 190 LDL Cholesterol, Calc 116 H HDL Cholesterol 57 Vitamin B12 346 25-OH Vitamin D Total 16.9 L TSH 4.36 H Free T4 0.91 Ur Specific [place] 1.015 Urine Protein Negative Urine Glucose (UA) Negative Urine Blood Negative Urine Nitrite Negative Ur Leukocyte Esterase Negative Coding Level of Care Code Est Pt Level 4 (39749) Complex EM visit Add On G2211 Diagnoses Pure hypercholesterolemia E78.00 Elevated blood pressure reading R03.0 Moderate persistent asthma with acute exacerbation J45.41 Asthma severity: moderate Asthma persistence: persistent Asthma complication type: with acute exacerbation Obstructive sleep apnea G47.33 Phlegmasia cerulea dolens, unspecified laterality I80.209 Laterality: unspecified laterality Primary osteoarthritis of right knee M17.11 Osteoarthritis type: primary Fibromyalgia M79.7 Neuropathy G62.9 Carpal tunnel syndrome of right wrist G56.01 Vitamin B12 deficiency E53.8 Vitamin D deficiency E55.9 Insomnia, unspecified type G47.00 Insomnia type: unspecified Anxiety F41.9 Episode of recurrent major depressive disorder, unspecified depression episode severity F33.9 Depression Type: major depressive disorder Major depression recurrence: recurrent Active/Remission status: currently active Major depression episode severity: unspecified Obesity (BMI 30-39.9) E66.9 Additional Codes PHQ-9 - 17536 - PHQ-9 Billing: Yes ([id number]) Assessment & Plan Assessment & Plan (1) Pure hypercholesterolemia: Code(s): E78.00 - Pure hypercholesterolemia, unspecified Category: Medical Plan: Results of her labs done a few days ago reviewed and discussed with patient - she is advised that her cholesterol levels have increased again slightly from previous Reinforced low cholesterol diet Continue Atorvastatin 80 mg QD Will recheck her labs and fasting lipids in 4 months for follow-up (2) Elevated blood pressure reading: Code(s): R03.0 - Elevated blood-pressure reading, without diagnosis of hypertension Category: Medical Plan: Her BP today remains well-controlled Reinforced low sodium diet Patient is reminded to continue monitoring her BP regularly (3) Asthma: Comment: As per spirometry. There is no significant obstructive disorder, So it seems that she has only mild intermittent bronchial asthma. 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 [place] : No need to use Flovent. Use ProAir 2 puffs Q 4-6 hours p.r.n., but avoid to use every day. Code(s): J45.909 - Unspecified asthma, uncomplicated Category: Medical Qualifiers: Asthma severity: moderate Asthma persistence: persistent Asthma complication type: with acute exacerbation Qualified Code(s): J45.41 - Moderate persistent asthma with (acute) exacerbation Plan: This appears controlled at present Continue Arnuity Ellipta 100 mcg 1 inhalation QD and Ventolin HFA 108 (90 Base) MCG/ACT, 2 puffs every 6 hrs as needed Follow up with [facility] Pulmonary as scheduled (4) Obstructive sleep apnea: Code(s): G47.33 - Obstructive sleep apnea (adult) (pediatric) Category: Medical Plan: She has not been able to use her CPAP device for a while now due to poor mask fit Follow up with Sleep Medicine as scheduled (5) 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 - goes to the Coumadin clinic for PT/INR monitoring Code(s): I80.209 - Phlebitis and thrombophlebitis of unspecified deep vessels of unspecified lower extremity Category: Medical Qualifiers: Laterality: unspecified laterality Qualified Code(s): I80.209 - Phlebitis and thrombophlebitis of unspecified deep vessels of unspecified lower extremity Plan: Continue Eliquis 5 mg BID She was on Warfarin Sodium Tablet, 5 MG, 2 tablets QD in the past but was switched over to Eliquis 5 mg BID by hematology a couple of years ago Follow up with hematology as scheduled (6) Osteoarthritis of right knee: Code(s): M17.11 - Unilateral primary osteoarthritis, right knee Category: Medical Qualifiers: Osteoarthritis type: primary Qualified Code(s): M17.11 - Unilateral primary osteoarthritis, right knee Plan: Right knee x-rays done back in August 2024 revealed (+) mild degenerative changes of the right knee, with no acute fracture or dislocation noted Patient states that she has received some cortisone injection into her knee in the past with temporary relief of her symptoms Follow-up with orthopedics as scheduled (7) Fibromyalgia: Code(s): M79.7 - Fibromyalgia Category: Medical Plan: Continue Tizanidine HCl 4 mg TID PRN for muscle pains, Tylenol 325 MG, 2 tablets Orally every 12 hrs as needed and Gabapentin 600 mg TID for pain control/management She is again encouraged to try to stay active and exercise regularly to help manage her fibromyalgia symptoms. (8) Neuropathy: Code(s): G62.9 - Polyneuropathy, unspecified Category: Medical Plan: Continue Gabapentin 600 MG 1 tablet 3 times a day - Rx refilled Will consider repeating NCV if symptoms persist/worsen (9) Carpal tunnel syndrome of right wrist: Code(s): G56.01 - Carpal tunnel syndrome, right upper limb Category: Medical Plan: (+) Hx of median nerve release a few years ago but symptoms appear to have recurred since and has gotten worse lately Patient previously declined offer to send her for repeat MCV & EMG as she reportedly still remembers how painful the procedure was a few years ago but would now like to have this ordered again as her wrist / hand symptoms have been gettting worse lately She was referred back to Dr. Fregoso for further management and consideration for repeat CTS surgery in the past Will wait for her NCV first and can refer her back to Dr. Fregoso when appropriate once her repeat testing is done (10) Vitamin B12 deficiency: Code(s): E53.8 - Deficiency of other specified B group vitamins Category: Medical Plan: Continue Vitamin B12 1000 mcg QD (11) Vitamin D deficiency: Code(s): E55.9 - Vitamin D deficiency, unspecified Category: Medical Plan: Continue Vitamin D2 82386 units once a week (12) Insomnia: Code(s): G47.00 - Insomnia, unspecified Category: Medical Qualifiers: Insomnia type: unspecified Qualified Code(s): G47.00 - Insomnia, unspecified Plan: Sleep hygiene reinforced She was taking Zolpidem 10 mg Q HS PRN previously but states that she was taken off this by her psychiatrist and started on an unrecalled Rx, which she thinks is helping somewhat (13) Anxiety: Code(s): F41.9 - Anxiety disorder, unspecified Category: Medical Plan: Continue Lorazepam 0.5 mg QD PRN (14) Depression: Comment: Recurrent MDD Code(s): F32.9 - Major depressive disorder, single episode, unspecified Category: Medical Qualifiers: Depression Type: major depressive disorder Major depression recurrence: recurrent Active/Remission status: currently active Major depression episode severity: unspecified Qualified Code(s): F33.9 - Major depressive disorder, recurrent, unspecified Plan: Continue Venlafaxine ER 150 mg QD, Latuda 80 mg Q HS and [place] ER 450 mg BID Follow up with psychiatry as scheduled (15) Obesity (BMI 30-39.9): Comment: She is actually morbidly obese with BMI of 41. Again stressed about losing weight, she is not able to do any active exercise. Trying to decrease her calories intake as much as she can, Code(s): E66.9 - Obesity, unspecified Category: Medical Plan: Reinforced diet/exercise as tolerated/lose weight Plan Follow up in 4 months Orders: Orders NE nerve conduction velocity Today M25.531 - Pain in right wrist, R20.2 - Paresthesia of skin Comprehensive [place]. Panel Fast 4 Months E78.00 - Pure hypercholesterolemia, unspecified Lipid Panel 4 Months E78.00 - Pure hypercholesterolemia, unspecified NE electromyogram (EMG) Today M25.531 - Pain in right wrist, R20.2 - Paresthesia of skin Complete Blood Count Auto Diff 4 Months D64.9 - Anemia, unspecified TSH reflex Free T4 4 Months E78.00 - Pure hypercholesterolemia, unspecified UA CC w/rflx Micro + Cult 4 Months R30.0 - Dysuria Vitamin D 25-OH Total 4 Months E55.9 - Vitamin D deficiency, unspecified Medications: Refilled gabapentin 600 mg PO TID 90 tabs 5RF
[2025-05-28 09:57] VITALS: BP 122/80; PULSE 54; O2SAT 99; BMI 36.0
--- OUTSIDE RECORDS SUMMARY | 2025-05-28 10:32 | XMS_ITS | Encounter Summary ---
Author Organization [employer] Address [address] [place] [address] [address] [place] [address] Care Team Providers Care Steel Pourer Name Role Phone Unavailable Primary Care Provider Unavailabl e Reason for Visit * Reason Onset Date Comments referral to [place] [facility] y 12/28/2024 Encounter Details Date Type Department Care Team (Late st Contact Info) Description 12/28/2024 Telephone [facility] [address] [place] [address] Yuliana Jung, DDS [address], [place] [phone] referral to [place] [facility] Social History Tobacco Use Types [...] referral faxed over to [facility] in [place]. They state they have not received. Faxed over again today from [facility] ariane CROWLEY documented in this encounter Plan of Treatment Upcoming Encounters Date Type Department Care Team (Late st Contact Info) Description 08/05/2025 8:00 AM EDT Office Visit [facility] [address] [place] [address] Nona Montanez documented as of this encounter Visit Diagnoses Not on filedocumented in this encounter
--- OUTSIDE RECORDS SUMMARY | 2025-05-28 10:32 | XMS_ITS | Data Portability ---
Author Organization [facility] PAIN OFFICE Address [address] [place] [address] Care Team Providers Care Upset Welding Machine Operator Name Role Phone LEDY LOMBARDI Primary Care [...] and she will follow up with her development scientist . She states she had a colonoscopy a few years back which was within normal limits. She can return for a repeat injection after seeing the development scientist. [email or web address] Not available 04/05/2013 10:19:04 12/06/2013 12/06/2013 [...] booked for the same. She needs a recycler forklift driver truck driver on the day of the [...] booked for the same. She needs a recycler forklift driver truck driver on the day of the procedure. She is on coumadin. She can stop coumadin for 5 days prior to the procedure per her PCP. Her INR needs to be 1.1 or less on the day of the procedure to proceed. She will have it checked at [facility] and fax us the results. [email or web address] [...] stat on 01/04. Please fax results to [phone] . Thanks. 2016 017 [facility] (Lab), [address], [place], [address], 7 17:12:59 Referral None recorded. Procedures None recorded. Surgeries None recorded. Imaging None recorded. Medication Orders lidocaine 5 % topical patch 2013 014 [facility] #[id number], [address], [place], [address], 7 08:58:28 Patient TargetsNo targets recorded. Patient Instructions Encounter Date Encounter Id Patient Instructions Last Modified By Organization Details Last Modified Time 04/04/2013 [id number] She was advised against bed rest lasting longer than four days and to continue activities as tolerated. [email or web address] Not available 04/05/2013 10:16:09 12/06/2013 [id number] She was advised against bed rest lasting longer than four days and to continue activities as tolerated. [email or web address] Not available 12/07/2013 09:19:05 12/11/2013 [id number] She was advised against bed rest lasting longer than four days and to continue activities as tolerated. [email or web address] Not available 12/11/2013 10:55:58 12/27/2016 [id number] She was advised to continue with activities as tolerated. [email or web address] Not available 12/27/2016 14:29:02 01/04/2017 [id number] She was advised to continue with activities [...] Recorded Time Spinal stenosis of lumbar region 12145538 Active Sepideh heard MD [address] [facility] , [address], [place], [address], [place] [facility] 4 10:58:50 Enthesopathy of hip region 38771702 Active Sepideh heard MD [address] , [address], [place], [address], [place] [facility] 4 10:58:50 Lumbosacral radiculitis 75391931 Active Sepideh heard MD [address] , [address], [facility] [place], [address], [place] [facility] 4 10:58:50 Pseudoclaudi cation syndrome Completed 12/06/2013 Sepideh heard MD [address] , [address], [facility] [place], [address], [place] [facility] 4 15:39:47 Problem Notes None recorded. Procedures Surgical History Date Name Laterality Status Provider Name and Address Organization Details Recorded Time 01/04/20 17 Lumbar Epidural steroid injection under fluoroscopic guidance completed Sepideh Kuo MD [address] , [address], [place], [address], [place] [facility] 01/05/2017 14:24:15 12/11/19 14 Greater Trochanteric Bursa Steroid Injection completed Sepideh Kuo MD [address] , [address], [place], [address], [place] [facility] 12/11/2013 10:58:50 12/04/19 13 Lumbar Epidural steroid injection under fluoroscopic guidance completed Sepideh Kuo MD [address] , [address], [place], [address], [place] [facility] 12/05/2012 15:51:55 08/21/20 12 Lumbar Epidural steroid injection under fluoroscopic guidance completed Sepideh Kuo MD [address] , [address], [place], [address], [place] [facility] 08/23/2012 08:38:37 Carpal tunnel release completed Bettina Zapata [place] - [facility] 12/27/2016 09:01:07 Other completed Bettina Zapata [place] [facility] 12/27/2016 09:20:46 Other completed Sepideh Kuo MD [address] , [address], [place], [address], [place] [facility] 08/10/2012 14:27:17 Other completed Sepideh Kuo MD [address] [facility] , [address], [place], [address], [place] [facility] 08/10/2012 14:27:17 Arthroscopic Surgery completed Bettina Zapata [place] - [facility] 12/04/2012 09:39:02 Other completed Bettina Zapata [place] [facility] 08/10/2012 13:44:34 Imaging [...] Details Last Updated DateTime 4 162.56 cm 191006. 2451 g 39.5 kg/m2 56 /min 100 [...] Tobacco Smoking Status Never Smoker Not Available [facility] 09/05/2020 03:16:10 Which Illicit Or Recreational Drugs Have You Used? No [id number] Information not available 09/05/2020 Live Alone Or With Others? With Others And Child [email or web address] Information not available 08/10/2012 GED Yes [email or web address] Information no t available 08/10/2012 Marital Status [email or web address] Informatio n not available 08/10/2012 Sex: Unknown Functional Status Question Answer Note LastModified by Organizat ion Details LastModified Time What is your level of alcohol consumption? None [id number] Information not available 09/05/2020 Are you currently employed? 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 [id number] Information not available 09/05/2020 Mental Status None [...] SNOMED-CT Code Diagnosis ICD10 Code Diagnosis Note [id number] Sepideh Kuo MD PAIN OFFICE [address] [place] [address] 08/10/2012 13:05:06 08/10/2012 15:37:45 [id number] Sepideh Kuo MD [facility] [address] [place] [address] 08/21/2012 14:40:55 08/21/2012 15:48:27 [id number] Sepideh Kuo MD PAIN OFFICE [address] [place] [address] 09/21/2012 14:38:42 09/21/2012 14:50:30 [id number] Sepideh Kuo MD PAIN OFFICE [address] [place] [address] 12/04/2012 14:43:16 12/04/2012 15:30:05 [id number] Sepideh Kuo MD [facility] PAIN OFFICE [address] [place] [address] 04/04/2013 09:50:29 04/04/2013 15:31:36 [id number] Sepideh Kuo MD PAIN OFFICE [address] [place] [address] 12/06/2013 14:21:13 12/07/2013 09:23:01 Enthesopathy of hip region 27579848 Lumbosacra l radiculitis 27003894 Spinal charanjit nosis of lumbar region 07924952 21343 Sepideh Kuo MD PAIN OFFICE [address] [place] [address] 12/11/2013 09:14:36 12/11/2013 10:59:34 Spinal stenosis of lumbar region 02293703 Enthesopat hy of hip region 99317724 Lumbosacra l radiculitis 27517944 85890 Sepideh Kuo MD PAIN OFFICE [address] [place] [address] 12/27/2016 08:36:45 12/27/2016 14:33:08 Lumbosacral radiculitis 49469906 M54.17 Displaceme nt of lumbar intervertebral disc without myelopathy 28339308 M51.26 Lumbosacra 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 87516615 M47.817 Spinal charanjit nosis of lumbar region 84155715 M48.06 Long-term drug therapy 734503851 Z79.02 [id number] Sepideh Kuo MD PAIN OFFICE [address] [place] [address] 01/04/2017 14:54:03 01/06/2017 08:36:22 Lumbosacral radiculitis 80893999 M54.17 Displaceme nt of lumbar intervertebral disc without myelopathy 80759354 M51.26 Lumbosacra 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 66136706 M47.817 Spinal charanjit nosis of lumbar region 46735980 M48.06 Long-term drug therapy 169476701 Z79.02 Health Concerns Section Related Observation LastModified by Organization Detai ls LastModified Time None Recorded Concern Status LastModified by Organization Details LastModified Time None Recorded Advance Directives Directive None Recorded Payers Insurance Date Sequence Insurance Name Policy Number Policy Smart Covered Member ID Smart Member ID Guarantor Name 12/20/2016 1 [place] [facility] Nato Goodman [id number] Nato Goodman 02/23/2021 1 [facility] HEALTH NET PLAN (MEDICAID HMO) [id number] Nato Goodman [id number] Nato Goodman Notes Date Note Type Note [...] 1 years old. Sepideh Kuo MD [address] , [address], [place], [address], [facility] - [facility] Management 04/05/2013 14:55:52 12/06/2013 text/html [...] of weakness, bladder or bowel incontinence. Sepideh uKo MD [address] [facility] , [address], [place], [address], [facility] - Pain Management 12/12/2013 13:30:10 12/11/2013 text/html She is here for a trial of right trochanteric bursal injection under lfuorscopic guidance. She has stopped her coumadin. INR is 1.2 this morning. Sepideh Kuo MD [address] , [address], [place], [address], [facility] - Pain Management 12/12/2013 13:32:15 12/27/2016 text/html [...] grocery shopping. Sepideh Kuo MD [address] [facility] , [address], [place], [address], [facility] - [facility] Management 12/31/2016 12:00:00 01/04/2017 text/html She is here for a lumbar epidural steroid injection under fluoroscopic guidance. She has stopped coumadin for 5 days and her INR is 1.0 this morning. Sepideh Kuo MD [address] [place] [address] , [address], [place], [address], [place] [facility] 01/13/2017 16:01:57 OBGyn Episode No OBEpisode recorded.
== END 2025-05-28 10:52 | disposition home or self-care (01) ==
LOC: HO.HMCH 09:53
PROVIDERS: PCP Internal Medicine; Visit Provider Internal Medicine
DX: E78.00 Pure hypercholesterolemia, unspecified (principal); I80.209 Phlebitis and thrombophlebitis of unspecified deep vessels of unspecified lower extremity; R03.0 Elevated blood-pressure reading, without diagnosis of hypertension; J45.41 Moderate persistent asthma with (acute) exacerbation; G47.33 Obstructive sleep apnea (adult) (pediatric); M17.11 Unilateral primary osteoarthritis, right knee; M79.7 Fibromyalgia; G62.9 Polyneuropathy, unspecified; G56.01 Carpal tunnel syndrome, right upper limb; E53.8 Deficiency of other specified B group vitamins; E55.9 Vitamin D deficiency, unspecified

== ENCOUNTER → 2025-05-28 09:52 | Outpatient (BNVA) | payer OTHER, SELFPAY | PROVIDERS: PCP Internal Medicine; Visit Provider Internal Medicine | DX: R03.0 Elevated blood-pressure reading, without diagnosis of hypertension (principal); E78.00 Pure hypercholesterolemia, unspecified; J45.41 Moderate persistent asthma with (acute) exacerbation; G47.33 Obstructive sleep apnea (adult) (pediatric); I80.209 Phlebitis and thrombophlebitis of unspecified deep vessels of unspecified lower extremity; M17.11 Unilateral primary osteoarthritis, right knee; M79.7 Fibromyalgia; G62.9 Polyneuropathy, unspecified; G56.01 Carpal tunnel syndrome, right upper limb; E53.8 Deficiency of other specified B group vitamins; E55.9 Vitamin D deficiency, unspecified; G47.00 Insomnia, unspecified; F41.9 Anxiety disorder, unspecified; F33.9 Major depressive disorder, recurrent, unspecified; E66.9 Obesity, unspecified | CPT/HCPCS: 96127; 99212 ==

== ENCOUNTER 2025-06-26 10:34 | Outpatient (AMB) | payer OTHER, SELFPAY ==
--- OUTSIDE RECORDS SUMMARY | 2024-10-15 06:00 | XMS_ITS ---
Author Organization [facility] Address [address] [place] [address] Care Team Providers Care Alliances Consultant Name Role Phone Angus GUSTAFSON, Glynn Primary Care Provider Darin Gonzalez Unavailable [phone] REASON FOR VISIT Seen Sooner Encounters Encounter Location Date Provider Diagnosis [address] [address] 10/15/2024 Darin Gastelum Plan Of Treatment No Information Progress Notes * Jarocho GAMBOAB:[birth year] (64 yo F)Acc No.[id number]:10/15/2024 Progress Notes Patient: Nato BAIN Provider: Shanna Gastelum DPM :1960 A ge:64 Y S ex:Female Date:10/15/2024 Address: [address] [place], [place] Pcp:Glynn Greco MD Subjective: * Chief Complaints: [...] Shanna Gastelum DPM Date: 12/15/2023 Generated for Printi ng/Faxing/eTransmitting on: 0 06/26/2025 11:15 AM EDT
[2025-06-26 10:46] VITALS: BP 140/74; PULSE 68; O2SAT 99; BMI 36.9
--- NOTE | 2025-06-26 10:46 | A.OFFVIS_ITS ---
Vital Signs 06/26/25 10:46 Height 5 ft 5 in Weight 221 lb 9.033 oz BMI 36.9 BP 140/74 H Blood Pressure Location Lt brachial Position Sitting Pulse 68 Pulse Source Pulse Oximeter Pulse Oximetry (%) 99 Oxygen Delivery Method Room Air Intake Visit Reasons: Asthma Allergies No Known Allergies Allergy (Verified 06/26/25 10:49) HPI Comments Details: The patient is a 64 year woman with a known history of ROBERTO CARLOS in addition to asthma. The patient states that she has had significant daytime drowsiness for many years. Her Springfield score is significantly elevated at 12/24. She was initially diagnosed with sleep apnea back in 2019. She had a REM related sleep disorder. She was placed on CPAP but she has struggled to tolerated. She has seen multiple specialists with no significant improvement in her tolerability of her CPAP. She has been noticing that she had been having increased palpitations. She does have a watch on now through her [employer] insurance that demonstrated that she is having some runs of tachyarrhythmia. I do not have the details. Will have her get an EKG today. She had been evaluated by Cardiology in the past. The patient also has a history of asthma. Seems to be stable on the current medications. She does not use her rescue inhaler more than 2 times a week. The patient is currently on Eliquis for history of DVT. Will go ahead and try the patient a new mask and she had some difficulties tolerating a fullface mask. We did have an N30 I air touch mask that she can try. When she connects the machine I will be able to decrease the pressures as well as her average pressure typically runs around 7 cm water. And a maximum pressure 10 cm water. Her AHI was less than 1 when she was using her CPAP therapy. Regional still providing supplies. The patient is aware she needs to use it because of her cardiovascular health unknown worsening disease and significant daytime drowsiness. She is going to continue with respiratory therapy as prescribed. She will return in 3 months and will reassess since her response to the new mask. We did talk about also other alternative therapies such as the hypoglossal nerve stimulators a good option for if she is not able to tolerate PAP therapy. 06/26/2025 the patient is here for pulmonary follow-up visit. Overall the patient has been doing okay. She has been very stressed with her family situation has not been able to use his CPAP regularly. Also she has not find a mask that fits her well except that she had been in the hospital and in the hospital she had a Respironics mask fullface that fit her very well. I will go ahead and request that from her DME company, [facility]. The patient also may benefit from a mask clinic where she can try different mask and try to find a good fitting mask that she could tolerate. She understands she needs use it. Springfield score is elevated 11/24. As from a respiratory status she is doing well. She has not required her rescue inhaler. Will plan to follow-up in 4-6 months. The patient will hopefully follow-up with her [employer] company regarding the mask fitting. [facility] Medical History (Updated 06/26/25 @ 22:20 by Evelio Haro MD) Bradycardia ROBERTO CARLOS on CPAP Insomnia Morbid obesity with BMI of 40.0-44.9, adult Pure hypercholesterolemia Exertional dyspnea Fatigue Cough Lumbar degenerative disc disease Phlegmasia cerulea dolens Obstructive sleep apnea COVID-19 Hyperthyroidism Anxiety Obstructive sleep apnea Condyloma acuminata Vitamin B12 deficiency Lung granuloma Phlegmasia cerulea dolens Chronic low back pain Vitamin D deficiency Obesity (BMI 30-39.9) Fibromyalgia Depression Neuropathy DVT (deep venous thrombosis) Asthma DDD (degenerative disc disease) Surgical History Hx of cholecystectomy History of esophagogastroduodenoscopy (EGD) S/P laparoscopic appendectomy History of embolectomy Benign neoplasm of neck History of colonoscopy History of bilateral tubal ligation History of carpal tunnel release History of bilateral oophorectomy S/P IVC filter Family History Father Liver cirrhosis Cancer Mother Heart attack Coronary artery disease Asthma Diabetes mellitus Brother No problems noted. Sister No problems noted. Sister No problems noted. Sister No problems noted. Sister No problems noted. Sister No problems noted. Sister No problems noted. Sister No problems noted. Sister No problems noted. Sister No problems noted. Sister No problems noted. Sister No problems noted. Sister No problems noted. Sister No problems noted. Paternal Aunt Colon cancer Son Histiocytosis Son No problems noted. Son No problems noted. 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) Alcohol intake: former Patient Tobacco Use Status: Never used Tobacco e-Cigarette/Vaping Use: Never Used Second Hand Smoke Exposure: No Advance Directives Date on File: 08/15/23 service: No Current occupational status: disabled Current occupation: right hand Current occupational exposures/hazards: No Cognitive needs: Yes (cane) Hearing needs: No Vision needs: Yes Review of Systems Const Denies chills, Reports daytime sleepiness, Reports difficulty sleeping, Reports fatigue, Denies fever(s), Denies poor appetite, Reports snoring, Denies stops breathing during sleep, Denies weakness, Denies weight gain and Denies weight loss Eyes Denies loss of vision ENT Denies dizziness and Denies hearing loss Card Denies chest pain, Denies irregular heart rhythm, Denies claudication, Denies leg edema, Denies lightheadedness, Reports palpitations, Reports dyspnea on exertion and Denies orthopnea Resp Reports cough, Denies excessive phlegm production, Reports dyspnea on exertion, Reports snoring and Denies wheezing GI Denies abdominal pain, Denies hematochezia, Denies change in bowel habits, Denies nausea and Denies vomiting Denies urinary frequency and Denies dysuria Musc Details: increasing pain over the top of both feet lately Denies arthralgias, Denies muscle weakness, Denies numbness and Denies other Skin/Breast Denies nail changes and Denies rash Neuro Denies Abnormal speech present, Denies dizziness, Denies loss of vision, Denies memory loss, Denies numbness and Denies weakness Psych Denies depression and Denies memory loss Endo Reports fatigue and Reports palpitations Thony/Lymph Denies easy bruising Aller/Immun Denies wheezing Physical Exam Vital Signs: Last Vital Signs Pulse 68 06/26/25 10:46 BP 140/74 H 06/26/25 10:46 Pulse Ox 99 06/26/25 10:46 Oxygen Delivery Method Room Air 06/26/25 10:46 BMI result Body Mass Index 36.9 Const General: comfortable HEENT Head: Yes normocephalic Neck Neck: Yes supple Chest Chest palpation & inspection: normal inspection of the chest Resp Effort & Inspection: normal respiratory effort Auscultation: clear to auscultation bilaterally Cardio Heart sounds: S1 normal heart sound present and S2 normal heart sound present GI Palpation (GI): Soft to palpation Skin General skin exam: no rashes or lesions noted Neuro Speech: No Abnormal speech present Extrem General: Yes no clubbing, cyanosis or edema Assessment & Plan Assessment & Plan (1) ROBERTO CARLOS on CPAP: Code(s): G47.33 - Obstructive sleep apnea (adult) (pediatric) Category: Medical (2) Asthma: Code(s): J45.909 - Unspecified asthma, uncomplicated Category: Medical Qualifiers: Asthma complication type: with acute exacerbation Asthma persistence: persistent Asthma severity: moderate Qualified Code(s): J45.41 - Moderate persistent asthma with (acute) exacerbation (3) Palpitations: Code(s): R00.2 - Palpitations Category: Medical Plan Restart using APAP, Adjusted 5-20 to 4-8. Requesting mask clinic, requesting Respironic FM. [facility] as needed F/U 3 months Coding Level of Care Code Est Pt Level 4 (30658) Complex EM visit Add On G2211 Diagnoses ROBERTO CARLOS on CPAP G47.33 Moderate persistent asthma with acute exacerbation J45.41 Asthma complication type: with acute exacerbation Asthma persistence: persistent Asthma severity: moderate Palpitations R00.2 Time Spent (min) 17
--- OUTSIDE RECORDS SUMMARY | 2025-06-26 11:16 | XMS_ITS | Encounter Summary ---
Author Organization [facility] Address [address] [place] [address] 7 [place] [address] Care Team Providers Care Log Yard Manager Name Role Phone Unavailable Primary Care Provider Unavailabl e Reason for Visit * Reason Onset Date Comments referral to [place] [facility] y 12/28/2024 Encounter Details Date Type Department Care Team (Late st Contact Info) Description 12/28/2024 Telephone [facility] [address] [place] [address] Yuliana Jung, DDS [address] [place], [place] [phone] referral to [place] [facility] Social History Tobacco Use Types [...] referral faxed over to [facility] in [place]. They state they have not received. Faxed over again today from [facility] ariane CROWLEY documented in this encounter Plan of Treatment Upcoming Encounters Date Type Department Care Team (Late st Contact Info) Description 08/05/2025 8:00 AM EDT Office Visit [facility] [address] [place] [address] Nona Montanez documented as of this encounter Visit Diagnoses Not on filedocumented in this encounter
== END 2025-06-26 11:21 | disposition home or self-care (01) ==
LOC: HO.HPS 10:35
PROVIDERS: PCP Internal Medicine; Visit Provider Hospitalist
DX: G47.33 Obstructive sleep apnea (adult) (pediatric) (principal); J45.41 Moderate persistent asthma with (acute) exacerbation; R00.2 Palpitations
CPT/HCPCS: 99214; G2211

== ENCOUNTER → 2025-06-26 10:34 | Outpatient (BNVA) | payer OTHER, SELFPAY | PROVIDERS: PCP Internal Medicine; Visit Provider Hospitalist | DX: G47.33 Obstructive sleep apnea (adult) (pediatric) (principal); J45.41 Moderate persistent asthma with (acute) exacerbation; R00.2 Palpitations | CPT/HCPCS: 99212 ==

== ENCOUNTER 2025-06-27 08:52 | Outpatient (REF) | payer OTHER, SELFPAY ==
--- OUTSIDE RECORDS SUMMARY | 2024-10-15 06:00 | XMS_ITS ---
Author Organization [facility] Address [address] [place] [address] Care Team Providers Care Endoscopy Support Specialist Name Role Phone Angus GUSTAFSON, Glynn Primary Care Provider Darin Gonzalez Unavailable [phone] REASON FOR VISIT Seen Sooner Encounters Encounter Location Date Provider Diagnosis [address] [address] 10/15/2024 Darin Gastelum Plan Of Treatment No Information Progress Notes * Jarocho GAMBOAB:[birth year] (64 yo F)Acc No.[id number]:10/15/2024 Progress Notes Patient: Nato BAIN Provider: Shanna Gastelum DPM :1960 A ge:64 Y S ex:Female Date:10/15/2024 Address: [address] [place], [place] Pcp:Glynn Greco MD Subjective: * Chief Complaints: [...] 12/15/2023 Generated for Printi ng/Faxing/eTransmitting on: 0 06/27/2025 09:12 AM EDT
--- OUTSIDE RECORDS SUMMARY | 2025-06-27 09:12 | XMS_ITS | Clinical Summary ---
Author Organization [facility] Address [address] [address] Phone Care Team Providers Care Shaping Machine Operator Name Role Phone Unavailable Primary Care Provider Unavailabl e Allergies No known active allergies Social History Tobacco Use Types Packs/Day Years Used Date Smoking Tobacco: Never Assessed Education Answer Date Recorded Are you interested in more education? Not on faizan e 03/20/2023 Are you concerned about learning? Not on file 03/20/2023 No 03/20/2023 No 03/20/2023 Digital Access Answer Date Recorded No 04/17/2023 No 04/17/2023 No 04/17/2023 Reliable internet access at home? Not on file 04/17/2023 Device with a working camera? Not on file Comments Unknown Sex and Gender Information Value Date Recorded Sex Assigned at Not on file Legal Sex Female 5:17 PM EST Gender Identity Not on file Sexual Orientation Not on file Plan of Treatment Health Maintenance Due Date Last Done Comments LIPID PANEL 1958 DEPRESSION SCREENING 1970 SMOKING Hx and SMOKELESS TOB ACCO SCREENING 1971 HEPATITIS C SCREENING 1976 MAMMOGRAM 1998 COLOGUARD 2003 FIT TEST 2003 FOBT 2003 SIGMOIDOSCOPY 2003 VIRTUAL COLONOSCOPY 2003 ZOSTER VACCINES (1 of 2) 2008 Adult Td,Tdap Booster 06/09/2009 06/09/1999 PNEUMOCOCCAL VACCINES (50+ y ears) (2 of 2 - PCV) 11/09/2020 11/09/2019 OSTEOPOROSIS SCREENING INITI AL (ONE-TIME) 2023 COVID-19 VACCINE (2 - 2023-2 5 season) 2024 03/25/2021 COLONOSCOPY 10/15/2029 10/15/2019 COLORECTAL CANCER SCREENING 10/15/2029 RSV VACCINE (1 - 1-dose 75+ series) 2033 HEPATITIS A VACCINES Aged Out No long er eligible based on patient's age to complete this topic HIB VACCINES Aged Out No longer eligi ble based on patient's age to complete this topic MENINGOCOCCAL VACCINES (ACWY) Aged Out No longer eligible based on patient's age to complete this topic MENINGOCOCCAL VACCINES (B) Aged Out N o longer eligible based on patient's age to complete this topic Medical Devices Not on file Procedures Procedure Name Priority Date/Time Associated Diagnosis Comments COLONOSCOPY FOR RESULT ENTRY ONLY Routine 10/15/2019 from Last 3 Months or Most Recently Relevant to Health Maintenance Results * COLONOSCOPY FOR RESULT ENTRY ONLY (10/15/2019) Chaparro Stone MD HEALTH MAINTENANCE Final Result from Last 3 Months or Most Recently Relevant to Health Maintenance Additional Source Comments The information contained in this document represents components of the legal health record. It is not the complete legal health record.[facility]
--- OUTSIDE RECORDS SUMMARY | 2025-06-27 09:12 | XMS_ITS | Encounter Summary ---
Author Organization [facility] Address [address] [place] [address] 7 [place] [address] Care Team Providers Care Cover Machine Operator Name Role Phone Unavailable Primary Care Provider Unavailabl e Reason for Visit * Reason Onset Date Comments referral to [place] [facility] y 12/28/2024 Encounter Details Date Type Department Care Team (Late st Contact Info) Description 12/28/2024 Telephone [facility] [address] [place] [address] Yuliana Jung, DDS [address] [place], [place] [phone] referral to [place] [facility] Social History Tobacco Use Types [...] referral faxed over to [facility] in [place]. They state they have not received. Faxed over again today from [facility] ariane CROWLEY documented in this encounter Plan of Treatment Upcoming Encounters Date Type Department Care Team (Late st Contact Info) Description 08/05/2025 8:00 AM EDT Office Visit [facility] [address] [place] [address] Nona Montanez documented as of this encounter Visit Diagnoses Not on filedocumented in this encounter
[2025-06-27 09:58] LABS: Appearance Urine Cloudy; Glucose Urine UA Negative (Negative); PH 5.5 (5.0-9.0); Specific Gravity - Urine 1.020 (1.005-1.025); UMIC TRIGGER UACC YES
[2025-06-27 10:05] LABS: UACC Culture Trigger YES
== END 2025-06-27 08:53 | disposition home or self-care (01) ==
LOC: HO.LAB 08:52
PROVIDERS: PCP Internal Medicine; Visit Provider Internal Medicine
DX: R30.0 Dysuria (principal); I80.209 Phlebitis and thrombophlebitis of unspecified deep vessels of unspecified lower extremity
CPT/HCPCS: 81001; 87086; 87088; 87186

== ENCOUNTER 2025-07-02 08:45 | Outpatient (REF) | payer OTHER, SELFPAY ==
--- NOTE | 2025-07-02 08:49 | EMG_ITS ---
Right median and ulnar motor and sensory studies were performed right radial sensory study was performed and EMG needle examination was performed. Impression: Mild right ulnar neuropathy across elbow MTDD
--- OUTSIDE RECORDS SUMMARY | 2025-07-02 09:03 | XMS_ITS | Patient Health Record ---
[facility] Address [address] [facility] [place] [address] Care Team Providers Care Watcher Lookout Tower Name Role Phone Denise Greco MDh Primary Care Provider Darin Gonzalez Unavailable [phone] Allergies No Known Allergies Reason For Referral [...] Orally Once a day Active Dorzolamide-Timolol Active [place] Carbonate ER 450 MG 1 tablet at [...] Osteoarthritis of midtarsal joint of left foot (0682490676843275 ) Osteoarthritis of midtarsal joint of left foot (M19.072) Active confirmed Problem Osteoarthritis of midtarsal joint of right foot (7844270446704006 ) Osteoarthritis of midtarsal joint of right foot (M19.071) Active confirmed Vital Signs Height 5 ft 2 in in 08/09/2024 Weight 227 lbs 08/09/2024 BMI 41.51 kg/m2 08/09/2024 Encounters Encounter Location Date Provider Diagnosis [facility] [place] [address] [address] 08/09/2024 Darin Oriana Pain in left foot [...] of midtarsal joint of right foot M19.071 [facility] [place] [address] [place] [address] 08/07/2024 Darin Gastelum Assessments Encounter Date Diagnosis [...] Insured Coverage Start Date Coverage End Date [facility] SCO Claims [address] [facility] [place] [address] [phone] [id number] Nato Goodman Self - patient is the [...]
--- OUTSIDE RECORDS SUMMARY | 2025-07-02 09:03 | XMS_ITS | Clinical Summary ---
Author Organization [facility] Address [address] [address] Phone Care Team Providers Care Body Technician/Painter Name Role Phone Unavailable Primary Care Provider [...] It is not the complete legal health record.[facility]
== END 2025-07-02 08:46 | disposition home or self-care (01) ==
LOC: HO.NEURO 08:45
PROVIDERS: PCP Internal Medicine; Visit Provider Internal Medicine
DX: R20.2 Paresthesia of skin (principal); M25.531 Pain in right wrist
CPT/HCPCS: 95886; 95909

== ENCOUNTER → 2025-07-02 08:49 | Outpatient (BNV) | payer OTHER, SELFPAY | PROVIDERS: PCP Internal Medicine; Visit Provider Psychiatry & Neurology Neurology | DX: G56.21 Lesion of ulnar nerve, right upper limb (principal) | CPT/HCPCS: 95886; 95909 ==

== ENCOUNTER 2025-08-19 13:08 | Outpatient (AMB) | payer OTHER, SELFPAY ==
--- OUTSIDE RECORDS SUMMARY | 2024-10-15 06:00 | XMS_ITS ---
Author Organization [facility] Address [address] [facility] [place] [address] Care Team Providers Care Wide Area Network Engineer Name Role Phone Angus GUSTAFSON, Glynn Primary Care Provider Darin Gonzalez Unavailable [phone] REASON FOR VISIT Seen Sooner Encounters Encounter Location Date Provider Diagnosis [address] [address] 10/15/2024 Darin Gastelum Plan Of Treatment No Information Progress Notes * Jarocho GAMBOAB:[birth year] (64 yo F)Acc No.[id number]:10/15/2024 Progress Notes Patient: Nato BAIN Provider: Shanna Gastelum DPM :1960 A ge:64 Y S ex:Female Date:10/15/2024 Address: [address] [facility] Pcp:Glynn Greco MD Subjective: * Chief Complaints: [...] Pending * Provider: Shanna Gastelum DPM Date: 1 12/15/2023 Generated for Printi ng/Faxing/eTransmitting on: 0 08/19/2025 02:26 PM EDT
[2025-08-19 13:11] VITALS: BP 124/78; PULSE 78; BMI 37.6
--- NOTE | 2025-08-19 13:11 | MHC.OFFVIS ---
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/bradycardia [facility] Name: bryce solorzano [phone] Accompanied by: Self / Same As Patient Allergies No Known Allergies Allergy (Verified 08/19/25 13:15) Medication List - Last Reconciled 08/19/25 by Jorge Dunn MD acetaminophen 325 mg PO DAILY PRN albuterol sulfate 2.5 mg inhalation QID PRN albuterol sulfate 90 mcg/actuation (Ventolin HFA) 2 puffs inhalation Q6H PRN 30 days apixaban (Eliquis) 5 mg PO BID atorvastatin 80 mg PO DAILY 90 days [COMPRESSION STOCKINGS (pantyhose) As directed] cyanocobalamin (vitamin B-12) 1,000 mcg PO DAILY 90 days dorzolamide-timolol 22.3-6.8 mg/mL 1 drp ophthalmic (eye) DAILY ergocalciferol (vitamin D2) 1,250 mcg PO QWEEK 3 months fosfomycin tromethamine 3 grams PO Q3D 6 days gabapentin 600 mg PO TID lithium carbonate ER 450 mg PO BID lorazepam 0.5 mg PO QAM PRN lurasidone 80 mg PO DAILY nitrofurantoin monohyd/m-cryst 100 mg (Macrobid) 100 mg PO Q12H 7 days omeprazole 20 mg PO DAILY PRN polyethylene glycol 3350 (Miralax) 238 grams PO ONCE [rollator walker with seat As directed] terconazole 0.8% 1 appful vaginal BEDTIME 3 days tramadol 50 mg PO BID PRN 30 days HPI Comments Details: The patient is a 64-year-old female presenting with chest pain and palpitations. The patient reports experiencing chest pain primarily when sitting or standing still, with the pain located in the center of the chest. She denies any history of myocardial infarction but experiences palpitations almost daily, which she attributes to anxiety. She also reports dyspnea, particularly at night, and has a history of asthma and COVID-19 infection. The patient does not use a CPAP machine regularly for sleep apnea. The patient has a history of blood clots in her legs, having experienced two episodes over the past 22 years, for which she has been on anticoagulation therapy. [facility] Medical History (Updated 08/07/25 @ 17:33 by Glynn Greco MD) Bradycardia ROBERTO CARLOS on CPAP Insomnia Morbid obesity with BMI of 40.0-44.9, adult Pure hypercholesterolemia Exertional dyspnea Fatigue Cough Lumbar degenerative disc disease Phlegmasia cerulea dolens Obstructive sleep apnea COVID-19 Hyperthyroidism Anxiety Obstructive sleep apnea Condyloma acuminata Vitamin B12 deficiency Lung granuloma Phlegmasia cerulea dolens Chronic low back pain Vitamin D deficiency Obesity (BMI 30-39.9) Fibromyalgia Depression Neuropathy DVT (deep venous thrombosis) Asthma DDD (degenerative disc disease) Surgical History Hx of cholecystectomy History of esophagogastroduodenoscopy (EGD) S/P laparoscopic appendectomy History of embolectomy Benign neoplasm of neck History of colonoscopy History of bilateral tubal ligation History of carpal tunnel release History of bilateral oophorectomy S/P IVC filter Family History Father Liver cirrhosis Cancer Mother Heart attack Coronary artery disease Asthma Diabetes mellitus Brother No problems noted. Sister No problems noted. Sister No problems noted. Sister No problems noted. Sister No problems noted. Sister No problems noted. Sister No problems noted. Sister No problems noted. Sister No problems noted. Sister No problems noted. Sister No problems noted. Sister No problems noted. Sister No problems noted. Sister No problems noted. Paternal Aunt Colon cancer Son Histiocytosis Son No problems noted. Son No problems noted. 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) Alcohol intake: former Patient Tobacco Use Status: Never used Tobacco e-Cigarette/Vaping Use: Never Used Second Hand Smoke Exposure: No Advance Directives Date on File: 08/15/23 service: No Current occupational status: disabled Current occupation: right hand Current occupational exposures/hazards: No Cognitive needs: Yes (cane) Hearing needs: No Vision needs: Yes Review of Systems Const Denies daytime sleepiness, Denies difficulty sleeping, Denies snoring, Denies stops breathing during sleep and Denies weakness Card Denies chest pain, Denies rapid heart rate, Denies irregular heart rhythm, Denies claudication, Denies leg edema, Denies lightheadedness, Denies palpitations, Reports dyspnea, Reports dyspnea on exertion, Denies orthopnea, Denies paroxysmal nocturnal dyspnea and Denies slow heart rate Resp Denies cough, Reports dyspnea, Reports dyspnea on exertion and Denies snoring GI Reports no additional complaints, Denies hematochezia, Denies change in stool character and Denies dyspepsia Musc Denies abnormal gait, Denies muscle weakness and Denies numbness Neuro Denies abnormal gait, Denies numbness and Denies weakness Endo Denies palpitations Physical Exam Vital Signs: Last Vital Signs Pulse 78 08/19/25 13:11 BP 124/78 08/19/25 13:11 BMI result Body Mass Index 37.6 Const General: comfortable and no acute distress Orientation/consciousness: patient oriented x3 HEENT Other: Unremarkable Head: Yes normal to inspection Neck Neck: Yes normal visual inspection Chest Chest palpation & inspection: normal inspection of the chest Resp Auscultation: clear to auscultation bilaterally Cardio Palpation: normal PMI Heart sounds: S1 normal heart sound present, S2 normal heart sound present, no gallops, no murmurs and no rubs GI Palpation (GI): Soft to palpation Back/Spine/Pelvis Other: unremarkable Skin General skin exam: no rashes or lesions noted Neuro General: patient oriented x3 Extrem General: Yes normal to inspection Psych Mental Status: mental status grossly normal Assessment & Plan Assessment & Plan (1) Exertional dyspnea: Code(s): R06.00 - Dyspnea, unspecified Category: Medical Plan: Per Pulmonary notes, she has asthma which might be the etiology for the shortness of breath. We will get an echocardiogram for cardiac function assessment. The random chest pains are noncardiac per description. Per chest CTA in 2022, reported normal and no pulmonary embolus. But chest x-ray 2023, unremarkable lung abraham. No recent BNP but previous levels are all normal. (2) Palpitations: Code(s): R00.2 - Palpitations Category: Medical Plan: Baseline EKG shows mild sinus bradycardia at 56/Min and otherwise unremarkable. Normal [place] and corrected QT. About 10 or so prior EKGs were reviewed and they are also unremarkable. The palpitations could be just subjective but we will obtain a baseline Holter to look for any atrial arrhythmias like atrial fibrillation as she also has a history of obstructive sleep apnea and noncompliance with CPAP. Orders: Orders CA echo transthoracic complete Today R06.00 - Dyspnea, unspecified ECG 3 day holter monitor Today R00.1 - Bradycardia, unspecified, R00.2 - Palpitations Coding Level of Care Code New Pt Level 3 (02305) Diagnoses Exertional dyspnea R06.00 Palpitations R00.2
--- OUTSIDE RECORDS SUMMARY | 2025-08-19 14:26 | XMS_ITS | Patient Health Record ---
[facility] Address [address] [place] [address] Care Team Providers Care Machine Operator Packaging Name Role Phone Denise Greco MDh Primary Care Provider Darin Gonzalez Unavailable [phone] Allergies No Known Allergies Reason For Referral [...] Once a day Active Dorzolamide-Timolol Active [place] Carbonate ER 450 MG 1 tablet at [...] Osteoarthritis of midtarsal joint of left foot ([id number] ) Osteoarthritis of midtarsal joint of left foot (M19.072) Active confirmed Problem Osteoarthritis of midtarsal joint of right foot (6702614931580622 ) Osteoarthritis of midtarsal joint of right foot (M19.071) Active confirmed Plan Of Treatment Pending Test Test Name Order Date X ray : Foot, left 3V 08/09/2024 X ray : Foot, right 3V 08/09/2024 Insurance Providers Payer Name Payer Address Payer Phone Subscriber Number Group Number Insured Name Patient Relationship to Insured Coverage Start Date Coverage End Date [facility] SCO Claims [address] [place] [address] [phone] [id number] aNto Goodman Self - patient is the insured [...]
--- OUTSIDE RECORDS SUMMARY | 2025-08-19 14:26 | XMS_ITS | Continuity of Care Document ---
Author Name [facility] Address [address] [place] [id number] Organization Unknown Address [address] [place], [place] [address] Medications No known medications Problems No known problems
--- OUTSIDE RECORDS SUMMARY | 2025-08-19 14:26 | XMS_ITS | Encounter Summary ---
Author Organization [facility] Address [address] [place] [address] Encounters * CPT with Medical [facility] at [employer] on 2025-08-12 Member called CRU c/o severe fatigue, chills and x 3 days. Member reports occasional chest pain. Denies sob, n/v, diarrhea or any other sx's. Member states she has normal appetite. She states she haspoor fluid intake, per her norm. PMH includes, fibromyalgia, neuropathy, MDD, DVT, Asthma, Bipolar,FIDELIA, HTN. Member was able to speak in full sentences without pauses or breaks. { reasonForRequest : weakness , patientReports : , den ies :[], chiefComplaints : Weakness , pmh : Anxiety Disorder, Hypertension, Depression, Deep Vein Thrombosis, Asthma, Bipolar Disorder, Fibromyalgia ,&quot ;allergies : No Known Drug Allergies , otherAllergies : , p ainAssessment : , visitOutcome : , additionalComments": HPI reviewed } ME08 dispatched to the address listed above for the report of a female constitution party with weakness. Arrivalon scene, patient found inside apartment seated in chair alert and oriented x4, patent airway, breathing non labored speaking in complete sentences, skin WPD in no obvious distress. +/= Chest rise. +SOB, +CP, +Nausea/vomiting, -diarrhea, -trauma, -fever. GCS 15. lung sounds clear in all abraham. abdomen soft, non tender, and non distended. No signs of pitting edema or fluid overload noted. FASTED - 0. Patient reports that she has been experiencing a variety of symptoms over the past 2 weeks including intermittent shortness of breath upon exertion and relieved by rest with hx of asthma, dizziness upon exertion also relieved by rest with history of vertigo and feels the room is spinning, increased weakness and fatigue, nausea and 1 episode of vomiting this past Tuesday. Patient reports no blood or black vomit or stool. Patient additionally reports a reproducible left sided chest pain described as pressure with no radiation x5 days, patient reports no past cardiac history aside from low heart rate. Patient denies taking any diuretics or history of CHF, reports history of asthma but does not have an inhaler. Patient reports reduced food/fluid intake and has been medication compliant. Patient denies any recent trauma, denies fever/chills, denies abdominal pain. Patient vital signs obtained as noted. 12 Lead EKG performed as noted and uploaded to [employer] for remote interpretation, computer interpretation indicated sinus bradycardia with no additional findings. [facility] consulted, providedorders for BMP and to consult again. Blood draw completed via 23 gauge butterfly needle in the lefthand, bleeding controlled with gauze. ISTAT BMP performed as noted and uploaded to [employer]. [facility] consulted again, advised to follow up with patient PCP/Chrome Plater. Red flags discussed with patient, advised to call 911 if her condition worsens. SC08 Clear. ORAL_MEDICATION, WOUND_CARE Written by [facility] on 2025-08-12
== END 2025-08-19 13:40 | disposition home or self-care (01) ==
LOC: HO.HCS 13:09
PROVIDERS: PCP Internal Medicine; Visit Provider Internal Medicine
DX: R06.00 Dyspnea, unspecified (principal); R00.2 Palpitations
CPT/HCPCS: 99213

== ENCOUNTER → 2025-08-19 13:08 | Outpatient (BNVA) | payer OTHER, SELFPAY | PROVIDERS: PCP Internal Medicine; Visit Provider Internal Medicine | DX: R00.2 Palpitations (principal); R06.00 Dyspnea, unspecified | CPT/HCPCS: 99212 ==

== ENCOUNTER 2025-09-06 08:51 | Outpatient (AMB) | payer OTHER, SELFPAY ==
--- OUTSIDE RECORDS SUMMARY | 2024-10-15 06:00 | XMS_ITS ---
Author Organization [facility] Address [address] [place] [address] Care Team Providers Care Medical Delivery Driver Name Role Phone Glynn Greco MD Primary Care Provider Darin Gonzalez Unavailable [phone] REASON FOR VISIT Seen Sooner Encounters Encounter Location Date Provider Diagnosis [address] [address] 10/15/2024 Darin Gastelum Plan Of Treatment No Information Progress Notes * Jarocho GAMBOAB:[birth year] (64 yo F)Acc No.[id number]:10/15/2024 Progress Notes Patient: Nato BAIN Provider: Shanna Gastelum DPM :1960 A ge:64 Y S ex:Female Date:10/15/2024 Address: [address] [place], [place] Pcp:Glynn Greco MD Subjective: * Chief Complaints: [...] Date: 12/15/2023 Generated for Printi ng/Faxing/eTransmitting on: 09:24 AM EDT
--- NOTE | 2025-09-06 08:54 | A.OFFVIS_ITS ---
Vital Signs 09/06/25 09:00 Height 5 ft 5 in Weight 225 lb BMI 37.4 Handedness Right Intake Visit Reasons: NewProb-Mild Right Ulnar Neuropathy, EMG done Intake Note: Nato is a 64 year old right hand dominant female who presents today in office for a new problem visit for evaluation of right ulnar neuropathy. Patient reports numbness and tingling that is daily in the right hand. Express she has dropped things from her right hand, she does not have the same strength as before. When she does activities such as mixing a pot of rice she says she has to let go of the spoon due to a sharp shooting tingling feeling radiating up into the right elbow. She says she has also had to switch the side she uses her cane because applying pressure to the palmar aspect of the hand sends the same symptoms up her right wrist to elbow. She would like to discuss treatment options today. Patient is taking Eliquis PO twice a day, one in the AM and once in PM. EMG/NCS done on 07/02/25 - Impression: Mild right ulnar neuropathy across elbow Manager Oracle Database Required: Yes Manager Oracle Database Language: Medical Van Driver Services: Manager Oracle Database Present (ipad) Manager Oracle Database Name: [id number] Allergies No Known Allergies Allergy (Verified 09/06/25 09:03) HPI HPI NewProb-Mild Right Ulnar Neuropathy, EMG done: Details: Nato is a 64 year old right hand dominant female who presents today in office for a new problem visit for evaluation of right ulnar neuropathy. Patient reports numbness and tingling that is daily in the right hand. Express she has dropped things from her right hand, she does not have the same strength as before. When she does activities such as mixing a pot of rice she says she has to let go of the spoon due to a sharp shooting tingling feeling radiating up into the right elbow. She says she has also had to switch the side she uses her cane because applying pressure to the palmar aspect of the hand sends the same symptoms up her right wrist to elbow. She would like to discuss treatment options today. Patient is taking Eliquis PO twice a day, one in the AM and once in PM. EMG/NCS done on 07/02/25 - Impression: Mild right ulnar neuropathy across elbow [facility] Medical History Bradycardia ROBERTO CARLOS on CPAP Insomnia Morbid obesity with BMI of 40.0-44.9, adult Pure hypercholesterolemia Exertional dyspnea Fatigue Cough Lumbar degenerative disc disease Phlegmasia cerulea dolens Obstructive sleep apnea COVID-19 Hyperthyroidism Anxiety Obstructive sleep apnea Condyloma acuminata Vitamin B12 deficiency Lung granuloma Phlegmasia cerulea dolens Chronic low back pain Vitamin D deficiency Obesity (BMI 30-39.9) Fibromyalgia Depression Neuropathy DVT (deep venous thrombosis) Asthma DDD (degenerative disc disease) Surgical History Hx of cholecystectomy History of esophagogastroduodenoscopy (EGD) S/P laparoscopic appendectomy History of embolectomy Benign neoplasm of neck History of colonoscopy History of bilateral tubal ligation History of carpal tunnel release History of bilateral oophorectomy S/P IVC filter Family History Father Liver cirrhosis Cancer Mother Heart attack Coronary artery disease Asthma Diabetes mellitus Brother No problems noted. Sister No problems noted. Sister No problems noted. Sister No problems noted. Sister No problems noted. Sister No problems noted. Sister No problems noted. Sister No problems noted. Sister No problems noted. Sister No problems noted. Sister No problems noted. Sister No problems noted. Sister No problems noted. Sister No problems noted. Paternal Aunt Colon cancer Son Histiocytosis Son No problems noted. Son No problems noted. 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) Alcohol intake: former Patient Tobacco Use Status: Never used Tobacco e-Cigarette/Vaping Use: Never Used Second Hand Smoke Exposure: No Advance Directives Date on File: 08/15/23 service: No Current occupational status: disabled Current occupation: right hand Current occupational exposures/hazards: No Cognitive needs: Yes (cane) Hearing needs: No Vision needs: Yes Review of Systems Const All systems reviewed & are unremarkable except as noted in HPI and below Physical Exam Vital Signs: BMI result Body Mass Index 37.4 Extrem Other: Neuro: Normal sensation of the tips of all digits of the right hand in the office today No thenar or intrinsic wasting. Good APB muscle firing and good finger cross. Vascular: Capillary refill brisk. ROM: Patient can make a fist and extend all their digits. Skin: No lacerations or abrasions noted. General: No ecchymosis. No erythema or evidence of infection. Assessment & Plan Assessment & Plan (1) Ulnar neuropathy at elbow of right upper extremity: Code(s): G56.21 - Lesion of ulnar nerve, right upper limb Category: Medical Plan 1. Right cubital tunnel syndrome Symptoms intermittent, daily, worse at night I educated the patient about the condition. I discussed both operative and nonoperative treatment options. The patient would like to proceed with surgery. The risks and benefits of operative treatment were discussed with the patient and the patient wishes to proceed with surgery. These risks include, but are not limited to, risk of damage to blood vessels, nerves, tendons, infection, recurrence, incomplete relief of preoperative symptoms, persistent pain, possible need for further surgery, and the risks associated with regional blocks and/or anesthesia. Plan is to take the patient to the operating room at some point in the next few weeks for the following procedures: 1. Right cubital tunnel release under general anesthesia All of the preoperative paperwork including the consent was discussed today. All of the patient's questions were answered in the clinic today. The patient understands that they will be in contact with our surgical physician assistant to discuss scheduling their procedure. Patient denies diabetes asthma, heart issues, lung issues, kidney issues, or current smoking. Must hold Eliquis for at least 2 days prior to surgery Coding Level of Care Code Est Pt Level 4 (62216) Diagnoses Ulnar neuropathy at elbow of right upper extremity G56.21
[2025-09-06 09:00] VITALS: BMI 37.4
--- OUTSIDE RECORDS SUMMARY | 2025-09-06 09:25 | XMS_ITS | Clinical Summary ---
Author Organization [employer] Address [address] [place] [address] [address] [place] [address] Care Team Providers Care Area Forester Name Role Phone Unavailable Primary Care Provider [...] 22 Active cholecalciferol (Vitamin D-3) 1.25 MG (49240 UT) capsule cholecalciferol (vitamin D3) 1,250 mcg [...] 16 Active ergocalciferol (Vitamin D2) 1.25 MG (15373 UT) capsule Take 1 capsule by mouth [...] joint of right foot 09/13/2024 Severe obesity (CMS/HCC) 09/13/2024 Spinal stenosis of lumbar region 09/13/2024 Dental caries 09/13/2024 Symptomatic irreversible pulpitis 09/13/2024 Dental abscess 01/10/2024 Missing teeth, acquired 01/10/2024 Localized gingival recession 01/10/2024 Dental calculus 01/12/2023 Encounters Date Type Department Care Team Description 08/05/2025 8:00 AM EDT Office Visit [facility] [address] [place] [address] Nona Montanez Dental calculus (Primary Dx); Encounter for dental examination; Localized gingival recession; Dental plaque 08/05/2025 Telephone [facility] [address] [place] [address] Yuliana Jung DDS from Last 3 Months Social History Tobacco [...] Sign Reading Time Taken Comments Blood Pressure 124/84 08/05/2025 8:11 AM EDT Pulse 74 01/10/2024 10:14 AM EST Temperature - - Respiratory Rate - - Oxygen Saturation - - Inhaled Oxygen Concentration - - Weight - - Height - - Body Mass Index - - Plan of Treatment Upcoming Encounters Date Type Department Care Team (Late st Contact Info) Description 10/30/2025 9:00 AM EST Office Visit [facility] [address] [place] [address] Hiren, Maria A, OD [address] [place] [address] 02/05/2026 8:00 AM EDT Office Visit [facility] [address] [place] [address] Nona Montanez Health Maintenance Due Date Last [...] - PCV) 11/09/2020 11/09/2019 COVID-19 Vaccine ( season) 2025 04/21/2021, 03/25/2021 Influenza Vaccine (#1) 2025 09/03/2024, 2021 Dental X-Ray: Bitewings 01/31/2026 01/31/20, 01/10/2024, 12/14/2022, Additional history exists Dental Oral Exam 02/03/2026 08/05/2025, 10/2025, 01/10/2024, Additional history exists Dental Prophylaxis 02/03/2026 08/05/2025, 0 01/30/2025, 01/10/2024, Additional history exists Tobacco Screening 08/05/2026 08/05/2025 Dental X-Ray: Full Mouth 02/01/2028 01/30/2025, 02/20 DTaP/Tdap/Td Vaccines (3 - Td or Tdap) 08/16/2031 08/16/2021, 06/09/1999 RSV Patients and Patients Aged 60 years or older (1 - 1-dose 75+ series) 2033 HIB Vaccines Aged Out No longer eligi [...] patient's age to complete this topic Meningococcal B Vaccine Aged Out No l onger eligible based on patient's age to complete [...] Procedure Name Priority Date/Time Associated Diagnosis Comments PERIODIC ORAL EVALUATION - ESTABLISHED PATIENT Routine 08/05/2025 8:00 AM EDT Dental calculus Encounter for dental examination Localized gingival recession Dental plaque CASE PRESENTATION, DETAILED AND EXTENSIVE TREATMENT PLANNING Routine 08/05/2025 8:00 AM EDT ORAL HYGIENE INSTRUCTIONS Routine 08/05/2025 8:00 AM EDT Dental calculus Encounter for dental examination Localized gingival recession Dental plaque PROPHYLAXIS - ADULT Routine 08/05/2025 8 :00 AM EDT Dental calculus Encounter for dental examination Localized gingival recession Dental plaque INTRAORAL - PERIAPICAL FIRST RADIOGRAPHIC IMAGE Routine 08/05/2025 8:00 AM EDT INTRAORAL - COMPLETE SERIES OF RADIOGRAPHIC IMAGES Routine 01/30/2025 8:00 AM EDT from Last 3 Months or Most Recently Relevant to Health Maintenance Insurance [place] [id number] [place] [id number] [facility]
--- OUTSIDE RECORDS SUMMARY | 2025-09-06 09:25 | XMS_ITS | Encounter Summary ---
Author Organization [employer] Address [address] [place] [address] 7 [place] [address] Care Team Providers Care Or Rn Name Role Phone Unavailable Primary Care Provider Unavailabl e Encounter Details Date Type Department Care Team (Latest Contact Info) Description 01/15/2022 Abstract [facility] CONVERSIONS Dental, Provider, DDS Social History [...] Description 10/30/2025 9:00 AM EST Office Visit [facility] OPTOMETRY [address] [place] [address] Hiren, Maria A, OD [address] [place] [address] 02/05/2026 8:00 AM EDT Office Visit [facility] ADULT DENTAL [address] [place] [address] Nona Montanez documented as of this encounter Visit Diagnoses Not on filedocumented in this encounter
--- OUTSIDE RECORDS SUMMARY | 2025-09-06 09:25 | XMS_ITS | Encounter Summary ---
Author Organization [employer] Address [address] [place] [address] 7 [place] [address] Care Team Providers Care Senior Drafter Name Role Phone Unavailable Primary Care Provider Unavailabl e Encounter Details Date Type Department Care Team (Latest Contact Info) Description 05/22/2019 Abstract [facility] CONVERSIONS Dental, Provider, DDS Social History Tobacco [...] Description 10/30/2025 9:00 AM EST Office Visit [facility] OPTOMETRY [address] [place] [address] Hiren, Maria A, OD [address] [place] [address] 02/05/2026 8:00 AM EDT Office Visit [facility] ADULT DENTAL [address] [place] [address] Nona Montanez documented as of this encounter Visit Diagnoses Not on filedocumented in this encounter
--- OUTSIDE RECORDS SUMMARY | 2025-09-06 09:25 | XMS_ITS | Encounter Summary ---
Author Organization [employer] Address [address] [place] [address] 7 [place] [address] Care Team Providers Care Sock Lining Examiner Name Role Phone Unavailable Primary Care Provider Unavailabl e Reason for Visit * Reason Onset Date Comments emmanuel PA 03/12/2024 Encounter Details Date Type Department Care Team ([facility] st Contact Info) Description 03/12/2024 Telephone [facility] ADULT DENTAL [address] [place] [address] Anson Ledezma, AZRA [address] [place] [address] emmanuel PA Social History Tobacco Use Types [...] Description 10/30/2025 9:00 AM EST Office Visit [facility] OPTOMETRY [address] [place] [address] Maria A Maradiaga, OD 230 [place] [address] 02/05/2026 8:00 AM EDT Office Visit [facility] ADULT DENTAL [address] [place] [address] Nona Montanez documented as of this encounter Visit Diagnoses Not on filedocumented in this encounter
--- OUTSIDE RECORDS SUMMARY | 2025-09-06 09:25 | XMS_ITS | Clinical Summary ---
Author Organization [facility] Address [address] [address] Phone Care Team Providers Care Software Project Engineer Name Role Phone Unavailable Primary Care [...] 11/09/2019 OSTEOPOROSIS SCREENING INITI AL (ONE-TIME) 2023 INFLUENZA VACCINE (#1) 2025 COVID-19 VACCINE (2 - 2024-2 6 season) 2025 03/25/2021 COLONOSCOPY 10/15/2029 10/15/2019 COLORECTAL CANCER SCREENING [...] It is not the complete legal health record.[facility]
--- OUTSIDE RECORDS SUMMARY | 2025-09-06 09:25 | XMS_ITS | Encounter Summary ---
Author Organization [employer] Address [address] [place] [address] 7 [place] [address] Care Team Providers Care School Crossing Guard Name Role Phone Unavailable Primary Care Provider Unavailabl e Reason for Visit * Reason Onset Date Comments referral to [place] [facility] y 12/28/2024 Encounter Details Date Type Department Care Team (Late st Contact Info) Description 12/28/2024 Telephone [facility] ADULT DENTAL [address] [place] [address] Yuliana Jung, DDS [address] [place], [place] [id number] referral to [place] [facility] Social History Tobacco Use Types [...] referral faxed over to [facility] in [place]. They state they have not received. Faxed over again today from [facility] ariane CROWLEY documented in this encounter Plan of Treatment Upcoming Encounters Date Type Department Care Team (Late st Contact Info) Description 10/30/2025 9:00 AM EST Office Visit [facility] OPTOMETRY [address] [place] [address] Maria A Maradiaga, OD [address] [place] [address] 02/05/2026 8:00 AM EDT Office Visit [facility] ADULT DENTAL [address] [place] [address] Nona Montanez documented as of this encounter Visit Diagnoses Not on filedocumented in this encounter
--- OUTSIDE RECORDS SUMMARY | 2025-09-06 09:25 | XMS_ITS | Patient Health Record ---
Author Organization [facility] Address [address] [facility] [place] [address] Care Team Providers Care Industrial Gas Fitter Name Role Phone Denise Greco MDh Primary Care Provider Darin Gonzalez Unavailable [phone] Allergies No Known Allergies Reason For Referral [...] Orally Once a day Active Dorzolamide-Timolol Active [place] Carbonate ER 450 MG 1 tablet [...] Osteoarthritis of midtarsal joint of left foot (4536576995740110 ) Osteoarthritis of midtarsal joint of left foot (M19.072) Active confirmed Problem Osteoarthritis of midtarsal joint of right foot (8723320540035645 ) Osteoarthritis of midtarsal joint of right foot (M19.071) Active confirmed Plan Of Treatment Pending Test Test Name Order Date X ray : Foot, left 3V 08/09/2024 X ray : Foot, right 3V 08/09/2024 Insurance Providers Payer Name Payer Address Payer Phone Subscriber Number Group Number Insured Name Patient Relationship to Insured Coverage Start Date Coverage End Date [facility] SCO Claims [address] [place] [address] [id number] Nato Goodman Self - patient is the [...]
== END 2025-09-06 09:25 | disposition home or self-care (01) ==
LOC: HO.HOS 08:52
PROVIDERS: PCP Internal Medicine
DX: G56.21 Lesion of ulnar nerve, right upper limb (principal)
CPT/HCPCS: 99214

== ENCOUNTER → 2025-09-06 08:51 | Outpatient (BNVA) | payer OTHER, SELFPAY | PROVIDERS: PCP Internal Medicine | DX: G56.21 Lesion of ulnar nerve, right upper limb (principal) | CPT/HCPCS: 99212 ==

== ENCOUNTER → 2025-09-24 08:43 | Outpatient (REF) | payer OTHER, SELFPAY ==
--- OUTSIDE RECORDS SUMMARY | 2024-10-15 05:00 | XMS_ITS ---
Author Organization [facility] Address [address] [facility] [place] [address] Care Team Providers Care Chief Relay Tester Name Role Phone Glynn Greco MD Primary Care Provider Darin Gonzalez Unavailable [phone] REASON FOR VISIT Seen Sooner Encounters Encounter Location Date Provider Diagnosis [address] [address] 10/15/2024 Darin Gastelum Plan Of Treatment No Information Progress Notes * Jarocho GAMBOAB:[birth year] (64 yo F)Acc No.[id number]:10/15/2024 Progress Notes Patient: Nato BAIN Provider: Shanna Gastelum DPM :1960 A ge:64 Y S ex:Female Date:10/15/2024 Address: [address] [place], [place] Pcp:Glynn Greco MD Subjective: * Chief Complaints: [...] 12/15/2023 Generated for Herminioi ng/Famark anthonyg/eTransmitting on: 11/24/2024 09:10 AM EST
--- NOTE | 2025-09-24 08:48 | HM_ITS ---
Conclusion: 1. Patient was monitored for total period of 3 days 2. Baseline was normal sinus rhythm with average heart of 61 beats per minute 3. Rare PACs noted 4. No significant pauses noted but frequent sinus bradycardia noted with 59% of the time heart rate below 60 beats per minute 5. No patient reported events MTDD
--- NOTE | 2025-09-24 08:48 | CA_ITS ---
Transthoracic Echocardiogram Patient (Last, First, Middle): Nato Goodman, Gender: F Date of : 1960 Age: 64 Procedure Date: 09/24/2025 Procedure Type: Transthoracic Echocardiogram Location: OP Height: 157.48 cm Weight: 99.79 kg BSA: 1.99 m2 Heart Rate: bpm BP: 122 / 60 mmHg Astrophysics Professor: Referring MD: Jorge Dunn MD Symptoms: R06.00 - Dyspnea, unspecified Study Quality: Adequate ECG Rhythm: Sinus Conclusions: - The left ventricular systolic function is low normal. The calculated ejection fraction is 54% by biplane method. - No obvious valvular pathology seen on this study. Findings Left Ventricle Normal left ventricular cavity size. There is normal left ventricular wall thickness. The left ventricular systolic function is low normal. The calculated ejection fraction is 54% by biplane method. There is no evidence of regional wall motion abnormalities. Diastolic function is normal for age. Right Ventricle Normal right ventricular cavity size and systolic function. Atria Both atria are normal in size. Aortic Valve There is a normal trileaflet aortic valve. There is no aortic valve stenosis. There is no aortic valve regurgitation. Mitral Valve The mitral valve appears normal. There is no mitral valve regurgitation. There is no mitral valve stenosis. Pulmonic Valve The pulmonic valve is likely normal. Tricuspid Valve Normal tricuspid valve structure. There is trace tricuspid valve regurgitation. There is no evidence of pulmonary hypertension. Great Vessels The asc aorta is normal in size. Venous The inferior vena cava is normal in size and collapses greater than 50% with inspiration. Pericardium/Pleural There is no evidence of pericardial effusion. Prior Study Comparison No significant change compared to prior study dated: 07/04/2020. Recommendations, Care & Conclusions No obvious valvular pathology seen on this study. Measurements 2D Linear Measurements IVSd: 1.03 0.6-0.9/0.6-1.0 cm LVIDd: 4.19 3.9-5.3/4.2-5.9 cm LVIDd Index: 2.11 2.4-3.2/2.2-3.1 cm/m2 LVIDs: 2.65 2.0-3.6 cm LVPWd: 1.00 0.7-1.1 cm Ao Root: 2.90 2.1-3.5 cm LV Mass: 173.77 67-162/88-224 g LV Mass Index: 87.32 43-95/49-115 g/m2 LVOT Diam: 2.00 3.0+(-)1.3 cm 2D Systolic Function EF 4C: 55.50 >55% EF 2C: 54.60 >55% EF BiP: 53.90 >55% Mitral Valve MV Pk E: 0.74 MV PK A: 0.86 MV Decel Time: 276.00 E/A: 0.90 E'Lateral: 9.68 E'Medial: 4.57 E/E' Med: 16.20 E/E' Lat: 7.70 PHT: 81.00 MVA PHT: 2.72 Decel Kidder: 2.69 Aortic Valve AoV Pk Yohannes: 1.22 AoV Mn Yohannes: 0.78 AoV VTI: 0.30 AoV Pk Grad: 6.00 Aov Mn Grad: 3.00 HERNAN Cont.VTI: 2.25 LVOT LVOT Pk Yohannes: 0.94 LVOT Mn Yohannes: 0.60 LVOT VTI: 0.21 LVOT Pk Grad: 4.00 LVOT Mn Grad: 2.00 LVOT Diam: 2.00 LVOT Area: 3.14 Diastolic Function MV Pk E: 0.74 MV Pk A: 0.86 E/A: 0.90 E'Medial: 4.57 E/E' Med: 16.20 E' Laterial: 9.68 E/E' Lat: 7.70 Right Ventricle TAPSE (mm): 26.00 TVS' Yohannes: 9.00 Tricuspid Valve TR Pk Yohannes: 2.14 TR Pk Grad: 18.00 RA Press: 3.00 RVSP: 21.00 Great Vessels Aorta Ao Root-2D: 2.90 2.0-3.7 cm Ao Asc: 3.30 2.1-3.4 cm Pulmonary Valve PV Pk Yohannes: 0.84 Peak PV Grad: 3.00 Updated in Other Vendor System with Status of Final Jorge Dunn MD electronically signed on 09/24/2025 2:56:13 PM with status of Final
--- OUTSIDE RECORDS SUMMARY | 2025-09-24 09:10 | XMS_ITS | Encounter Summary ---
Author Organization [employer] Address [address] [place] [address] 7 [place] [address] Care Team Providers Care Lugger Name Role Phone Unavailable Primary Care Provider Unavailabl e Reason for Visit * Reason Onset Date Comments emmanuel PA 03/12/2024 Encounter Details Date Type Department Care Team ([facility] st Contact Info) Description 03/12/2024 Telephone [facility] ADULT DENTAL [address] [place] [address] Anson Ledezma, AZRA [address] [place] [address] emmanuel PA Social History Tobacco Use Types [...] Description 10/30/2025 9:00 AM EST Office Visit [facility] OPTOMETRY [address] [place] [address] Maria A Maradiaga, OD [address] [place] [address] 02/07/2026 8:00 AM EDT Office Visit [facility] ADULT DENTAL [address] [place] [address] Nona Montanez documented as of this encounter Visit Diagnoses Not on filedocumented in this encounter
--- OUTSIDE RECORDS SUMMARY | 2025-09-24 09:10 | XMS_ITS | Encounter Summary ---
Author Organization [employer] Address [address] [place] [address] 7 [place] [address] Care Team Providers Care Combustion Analyst Name Role Phone Unavailable Primary Care Provider Unavailabl e Reason for Visit * Reason Onset Date Comments referral to [place] [facility] y 12/28/2024 Encounter Details Date Type Department Care Team (Late st Contact Info) Description 12/28/2024 Telephone [facility] ADULT DENTAL [address] [place] [address] Yuliana Jung, DDS [address] [place], [place] [phone] referral to [place] [facility] Social History Tobacco Use Types [...] referral faxed over to [facility] in [place]. They state they have not received. Faxed over again today from [facility] ariane CROWLEY documented in this encounter Plan of Treatment Upcoming Encounters Date Type Department Care Team (Late st Contact Info) Description 10/30/2025 9:00 AM EST Office Visit [facility] OPTOMETRY [address] [place] [address] Maria A Maradiaga, OD [address] [place] [address] 02/07/2026 8:00 AM EDT Office Visit [facility] ADULT DENTAL [address] [place] [address] Nona Montanez documented as of this encounter Visit Diagnoses Not on filedocumented in this encounter
--- OUTSIDE RECORDS SUMMARY | 2025-09-24 09:10 | XMS_ITS | Patient Health Record ---
Author [facility] Address [address] [facility] [place] [address] Care Team Providers Care Art Installer Name Role Phone Denise Greco MDh Primary Care Provider Darin Gonzalez Unavailable [phone] Allergies No Known Allergies Reason For Referral [...] Orally Once a day Active Dorzolamide-Timolol Active [place] Carbonate ER 450 MG 1 tablet at [...] Osteoarthritis of midtarsal joint of left foot (9258806836413164 ) Osteoarthritis of midtarsal joint of left foot (M19.072) Active confirmed Problem Osteoarthritis of midtarsal joint of right foot (1257345321076803 ) Osteoarthritis of midtarsal joint of right foot (M19.071) Active confirmed Plan Of Treatment Pending Test Test Name Order Date X ray : Foot, left 3V 08/09/2024 X ray : Foot, right 3V 08/09/2024 Insurance Providers Payer Name Payer Address Payer Phone Subscriber Number Group Number Insured Name Patient Relationship to Insured Coverage Start Date Coverage End Date [facility] SCO Claims [address] [place] [address] [id number] Nato Goodman Self - patient is the [...]
--- OUTSIDE RECORDS SUMMARY | 2025-09-24 09:10 | XMS_ITS | Encounter Summary ---
Author Organization [employer] Address [address] [place] [address] [address] [place] [address] Care Team Providers Care Management Trainee Marketing Name Role Phone Unavailable Primary Care Provider Unavailabl e Encounter Details Date Type Department Care Team (Latest Contact Info) Description 05/22/2019 Abstract [facility] CONVERSIONS Dental, Provider, DDS Social [...] Description 10/30/2025 9:00 AM EST Office Visit [facility] OPTOMETRY [address] [place] [address] Hiren, Maria A, OD [address] [place] [address] 02/07/2026 8:00 AM EDT Office Visit [facility] ADULT DENTAL [address] [place] [address] Nona Montanez documented as of this encounter Visit Diagnoses Not on filedocumented in this encounter
--- OUTSIDE RECORDS SUMMARY | 2025-09-24 09:10 | XMS_ITS | Encounter Summary ---
Author Organization [employer] Address [address] [place] [address] [address] [place] [address] Care Team Providers Care Fire Prevention Forester Name Role Phone Unavailable Primary Care Provider Unavailabl e Encounter Details Date Type Department Care Team (Latest Contact Info) Description 01/15/2022 Abstract [facility] CONVERSIONS Dental, Provider, DDS Social History [...] Description 10/30/2025 9:00 AM EST Office Visit [facility] OPTOMETRY [address] [place] [address] Hiren, Maria A, OD [address] [place] [address] 02/07/2026 8:00 AM EDT Office Visit [facility] ADULT DENTAL [address] [place] [address] Nona Montanez documented as of this encounter Visit Diagnoses Not on filedocumented in this encounter
--- OUTSIDE RECORDS SUMMARY | 2025-09-24 09:12 | XMS_ITS | Clinical Summary ---
Author Organization [employer] Address [address] [place] [address] [address] [place] [address] Care Team Providers Care Legal Consultant Name Role Phone Unavailable Primary Care Provider [...] 22 Active cholecalciferol (Vitamin D-3) 1.25 MG (03285 UT) capsule cholecalciferol (vitamin D3) 1,250 mcg [...] 16 Active ergocalciferol (Vitamin D2) 1.25 MG (52941 UT) capsule Take 1 capsule by mouth [...] Description 08/05/2025 8:00 AM EDT Office Visit [facility] ADULT DENTAL [address] [place] [address] Nona Montanez Dental calculus (Primary Dx); Encounter for dental examination; Localized gingival recession; Dental plaque 08/05/2025 Telephone [facility] ADULT DENTAL [address] [place] [address] Yuliana Jung DDS from Last [...] Description 10/30/2025 9:00 AM EST Office Visit [facility] OPTOMETRY [address] [place] [address] Hiren, Maria A, OD [address] [place] [address] 02/07/2026 8:00 AM EDT Office Visit [facility] ADULT DENTAL [address] [place] [address] Nona Montanez Health Maintenance Due Date Last [...] Most Recently Relevant to Health Maintenance Insurance [place] [id number] [id number] [id number] [facility] Member Subscriber Plan / Payer (Ef fective 2023-Present) Name:Nato Goodman Relation to Subscriber:Self Name:Nato Goodman Payer ID:Not on file Group ID:[id number] Type:Not on file Address: [address] [address]
--- OUTSIDE RECORDS SUMMARY | 2025-09-24 09:12 | XMS_ITS | Clinical Summary ---
Author Organization [facility] Address [address] [facility] [address] [place] [address] Phone Care Team Providers Care Secondary School Teacher Librarian Name Role Phone Unavailable Primary Care Provider [...] It is not the complete legal health record.[facility]
== END ==
LOC: HO.CARD 08:43
PROVIDERS: PCP Internal Medicine; Visit Provider Internal Medicine
DX: R06.00 Dyspnea, unspecified (principal); R00.2 Palpitations; R00.1 Bradycardia, unspecified
CPT/HCPCS: 93242; 93306

== ENCOUNTER → 2025-09-24 08:48 | Outpatient (BNV) | payer OTHER, SELFPAY | PROVIDERS: PCP Internal Medicine; Visit Provider Internal Medicine | DX: R06.00 Dyspnea, unspecified (principal); R00.2 Palpitations | CPT/HCPCS: 93306 ==

== ENCOUNTER 2025-10-03 07:57 | Outpatient (REF) | payer OTHER, SELFPAY ==
--- OUTSIDE RECORDS SUMMARY | 2024-10-15 05:00 | XMS_ITS ---
Author Organization [facility] Address [address] [place] [address] Care Team Providers Care Engineering Writer Name Role Phone Glynn Greco MD Primary Care Provider Darin Gonzalez Unavailable [phone] REASON FOR VISIT Seen Sooner Encounters Encounter Location Date Provider Diagnosis [address] [address] 10/15/2024 Darin Gastelum Plan Of Treatment No Information Progress Notes * Jarocho GAMBOAB:[birth year] (65 yo F)Acc No.[id number]:10/15/2024 Progress Notes Patient: Nato BAIN Provider: Shanna Gastelum DPM :1960 A ge:64 Y S ex:Female Date:10/15/2024 Address: [address] [place], [place] Pcp:Glynn Greco MD Subjective: * Chief Complaints: * 1 . Seen Sooner. * Medical History: Objective: * Vitals: Assessment: Plan: * Treatment: * Images: * The named appointment provid er may or may not be the originator of this progress note, and it is not deemed complete until electronically signed by the appointment provider. Sign off status: Pending * Provider: Shanna Gastelum DPM Date: 12/15/2023 Generated for Herminioi ng/Famark anthonyg/eTransmitting on: 12/03/2024 08:00 AM EST
--- OUTSIDE RECORDS SUMMARY | 2025-10-03 08:00 | XMS_ITS | Data Portability ---
Author Organization [facility] Pain Managem mis PAIN OFFICE Address [address] [facility] [place] [address] Care Team Providers Care News Director Name Role Phone LEDY LOMBARDI Primary Care [...] and she will follow up with her car clerk pullman . She states she had a colonoscopy a few years back which was within normal limits. She can return for a repeat injection after seeing the car clerk pullman. [email or web address] Not available 04/05/2013 10:19:04 12/06/2013 12/06/2013 [...] booked for the same. She needs a logging truck driver on the day of the [...] booked for the same. She needs a logging truck driver on the day of the procedure. She is on coumadin. She can stop coumadin for 5 days prior to the procedure per her PCP. Her INR needs to be 1.1 or less on the day of the procedure to proceed. She will have it checked at [facility] and fax us the results. [email or web address] [...] stat on 01/04. Please fax results to [phone] . Thanks. 2016 017 [facility] (Lab), [address], [place], [address], 7 17:12:59 Referral None recorded. Procedures None recorded. Surgeries None recorded. Imaging None recorded. Medication Orders lidocaine 5 % topical patch 2013 014 [facility]armacy #[id number], [address], [place], [address], 7 08:58:28 Patient TargetsNo targets recorded. Patient Instructions Encounter Date Encounter Id Patient Instructions Last Modified By Organization Details Last Modified Time 04/04/2013 [id number] She was advised against bed rest lasting longer than four days and to continue activities as tolerated. [email or web address] Not available 04/05/2013 10:16:09 12/06/2013 [id number] She was advised against bed rest lasting longer than four days and to continue activities as tolerated. [email or web address] Not available 12/07/2013 09:19:05 12/11/2013 [id number] She was advised against bed rest lasting longer than four days and to continue activities as tolerated. [email or web address] Not available 12/11/2013 10:55:58 12/27/2016 [id number] She was advised to continue with activities as tolerated. [email or web address] Not available 12/27/2016 14:29:02 01/04/2017 [id number] She was advised to continue with activities [...] Recorded Time Spinal stenosis of lumbar region 50947239 Active Sepideh heard MD [address] [facility] , [address], [place], [address], [place] [facility] 4 10:58:50 Enthesopathy of hip region 32382428 Active Sepideh heard MD [address] , [address], [place], [address], [place] [facility] 4 10:58:50 Lumbosacral radiculitis 74929965 Active Sepideh heard MD [address] , [address], [facility] [place], [address], [place] [facility] 4 10:58:50 Pseudoclaudi cation syndrome Completed 12/06/2013 Sepideh heard MD [address] , [address], [facility] [place], [address], [place] [facility] 4 15:39:47 Problem Notes None recorded. Procedures Surgical History Date Name Laterality Status Provider Name and Address Organization Details Recorded Time 01/04/20 17 Lumbar Epidural steroid injection under fluoroscopic guidance completed Sepideh Kuo MD [address] , [address], [place], [address], [place] [facility] 01/05/2017 14:24:15 12/11/19 14 Greater Trochanteric Bursa Steroid Injection completed Sepideh Kuo MD [address] , [address], [place], [address], [place] [facility] 12/11/2013 10:58:50 12/04/19 13 Lumbar Epidural steroid injection under fluoroscopic guidance completed Sepideh Kuo MD [address] , [address], [place], [address], [place] [facility] 12/05/2012 15:51:55 08/21/20 12 Lumbar Epidural steroid injection under fluoroscopic guidance completed Sepideh Kuo MD [address] , [address], [place], [address], [place] [facility] 08/23/2012 08:38:37 Carpal tunnel release completed Bettina Zapata [place] [facility] 12/27/2016 09:01:07 Other completed Bettina Zapata [place] [facility] 12/27/2016 09:20:46 Other completed Sepideh Kuo MD [address] , [address], [place], [address], [place] [facility] 08/10/2012 14:27:17 Other completed Sepideh Kuo MD [address] [facility] , [address], [place], [address], [place] [facility] 08/10/2012 14:27:17 Arthroscopic Surgery completed Bettina Zapata [place] [facility] 12/04/2012 09:39:02 Other completed Bettina Zapata [place] [facility] 08/10/2012 13:44:34 Imaging [...] Details Last Updated DateTime 4 162.56 cm 512594. 2451 g 39.5 kg/m2 56 /min 100 [...] Tobacco Smoking Status Never [facility]oker Not [facility] 09/[facility]/2020 03:16:10 Which Illicit Or Recreational Drugs Have You Used? No [id number] Information not available 09/05/2020 Live Alone Or With Others? With Others And Child [email or web address] Information not available 08/10/2012 GED Yes [email or web address] Information no t available 08/10/2012 Marital Status Informatio n not available 08/10/2012 Sex: Unknown Functional Status Question Answer Note LastModified by Organizat ion Details LastModified Time What is your level of alcohol consumption? None [id number] Information not available 09/05/2020 Are you currently employed? 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 Family History Nothing Reported. Medical History Condition Response Anxiety Disorder Y Neuropathy/Neuralgia Y Headache Y Arthritis Y Hyperthyroidism Y Depression Y Asthma Y Gynecological HistoryNo gynecological history recorded. Obstetrics History GPAL:G 0 P 0 0 0 0 Past Encounters Encounter ID Performer Location Encounter Start Date Encounter Closed Date Diagnosis/Indication Diagnosis SNOMED-CT Code Diagnosis ICD10 Code Diagnosis IMO Codes Diagnosis Note [id number] Sepideh Kuo MD PAIN OFFICE [address] [place] [id number] 08/10/2012 13:05:06 08/10/2012 15:37:45 [id number] Sepideh Kuo MD PAIN OFFICE [address] [place] [id number] 08/21/2012 14:40:55 08/21/2012 15:48:27 [id number] Sepideh Kuo MD PAIN OFFICE [address] [place] [id number] 09/21/2012 14:38:42 09/21/2012 14:50:30 [id number] Sepideh Kuo MD [facility] PAIN OFFICE [address] [facility] [address] 12/04/2012 14:43:16 12/04/2012 15:30:05 [id number] Sepideh Kuo MD [facility] PAIN OFFICE [address] [facility] [place] [address] 04/04/2013 09:50:29 04/04/2013 15:31:36 [id number] Sepideh Kuo MD PAIN OFFICE [address] [facility] [place] [address] 12/06/2013 14:21:13 12/07/2013 09:23:01 Enthesopathy of hip region 43118302 Lumbosacra l radiculitis 38480824 Spinal charanjit nosis of lumbar region 77288006 [id number] Sepideh Kuo MD [facility] PAIN OFFICE [address] [place] [address] 12/11/2013 09:14:36 12/11/2013 10:59:34 Spinal stenosis of lumbar region 03278359 Enthesopat hy of hip region 39762041 Lumbosacra l radiculitis 23680647 06248 Sepideh Kuo MD PAIN OFFICE [address] [place] [id number] 12/27/2016 08:36:45 12/27/2016 14:33:08 Lumbosacral radiculitis 43387458 M54.17 Displaceme nt of lumbar intervertebral disc without myelopathy 31365638 M51.26 Lumbosacra 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 15418404 M47.817 Spinal charanjit nosis of lumbar region 50785394 M48.06 Long-term drug therapy 883380038 Z79.02 [id number] Sepideh Kuo MD PAIN OFFICE [address] [place] [id number] 01/04/2017 14:54:03 01/06/2017 08:36:22 Lumbosacral radiculitis 44988034 M54.17 Displaceme nt of lumbar intervertebral disc without myelopathy 06859711 M51.26 Lumbosacra 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 26283739 M47.817 Spinal charanjit nosis of lumbar region 07977366 M48.06 Long-term drug therapy 125820472 Z79.02 Health Concerns Section Related Observation LastModified by Organization Detai ls LastModified Time None Recorded Concern Status LastModified by Organization Details LastModified Time None Recorded Advance Directives Directive None Recorded Payers Insurance Date Sequence Insurance Name Policy Number Policy Smart Covered Member ID Smart Member ID Guarantor Name 12/20/2016 1 [place] [facility] Nato Goodman [id number] Nato Goodman 02/23/[address] [facility] NET PLAN (MEDICAID HMO) [id number] Nato Goodman [id number] Nato Goodman Notes Date Note Type Note [...] years old. Sepideh Kuo MD [address] [facility] , [address], [place], [address], [facility] - Pain Management 04/05/2013 14:55:52 [...] bowel incontinence. Sepideh Kuo MD [address] [facility] , [address], [place], [address], [facility] - Pain Management 12/12/2013 13:30:10 12/11/2013 text/html She is here for a trial of right trochanteric bursal injection under lfuorscopic guidance. She has stopped her coumadin. INR is 1.2 this morning. Sepideh Kuo MD [address] [facility] , [address], [place], [address], [facility] - Pain Management 12/12/2013 13:32:15 [...] grocery shopping. Sepideh Kuo MD [address] [facility] , [address], [place], [address], [facility] - Pain Management 12/31/2016 12:00:00 01/04/2017 text/html She is here for a lumbar epidural steroid injection under fluoroscopic guidance. She has stopped coumadin for 5 days and her INR is 1.0 this morning. Sepideh Kuo MD [address] [place] [address] , [address], [place], [address], [place] [facility] 01/13/2017 16:01:57 OBGyn Episode No OBEpisode recorded.
--- OUTSIDE RECORDS SUMMARY | 2025-10-03 08:00 | XMS_ITS | Encounter Summary ---
Author Organization [email or web address] Address [address] [place] [address] 7 [place] [address] Care Team Providers Care Auto Specialty Services Manager Name Role Phone Unavailable Primary Care Provider Unavailabl e Encounter Details Date Type Department Care Team (Latest Contact Info) Description 05/22/2019 Abstract [facility] Dental, Provider, DDS Social History Tobacco [...] 9:00 AM EST Office Visit [facility] [address] [place] [address] Hiren, Maria A, OD [address] [place] [address] 02/07/2026 8:00 AM EDT Office Visit [facility] ADULT DENTAL [address] [place] [address] Nona Montanez documented as of this encounter Visit Diagnoses Not on filedocumented in this encounter
--- OUTSIDE RECORDS SUMMARY | 2025-10-03 08:00 | XMS_ITS | Encounter Summary ---
Author Organization [employer] Address [address] [place] [address] 7 [place] [address] Care Team Providers Care Grinder Set Up Operator Name Role Phone Unavailable Primary Care Provider Unavailabl e Reason for Visit * Reason Onset Date Comments emmanuel PA 03/12/2024 Encounter Details Date Type Department Care Team ([facility] st Contact Info) Description 03/12/2024 Telephone [facility] ADULT DENT[facility] [address] [place] [address] Anson Ledezma, AZRA [address] [place] [address] emmanuel PA Social History Tobacco Use Types [...] Description 10/30/2025 9:00 AM EST Office Visit [facility] OPT[facility] [address] [place] [address] Maria A Maradiaga, OD [address] [place] [address] 02/07/2026 8:00 AM EDT Office Visit [facility] [address] [place] [address] Nona Montanez documented as of this encounter Visit Diagnoses Not on filedocumented in this encounter
--- OUTSIDE RECORDS SUMMARY | 2025-10-03 08:00 | XMS_ITS | Patient Health Record ---
Author Organization [facility] Address [address] [facility] [place] [address] Care Team Providers Care Regional Director Name Role Phone Denise Greco MDh Primary Care Provider Darin Gonzalez Unavailable [phone] Allergies No Known Allergies Reason For Referral [...] Orally Once a day Active Dorzolamide-Timolol Active Hannibal Carbonate ER 450 MG 1 tablet at [...] Osteoarthritis of midtarsal joint of left foot (9134552490206529 ) Osteoarthritis of midtarsal joint of left foot (M19.072) Active confirmed Problem Osteoarthritis of midtarsal joint of right foot (7121746175614387 ) Osteoarthritis of midtarsal joint of right foot (M19.071) Active confirmed Plan Of Treatment Pending Test Test Name Order Date X ray : Foot, left 3V 08/09/2024 X ray : Foot, right 3V 08/09/2024 Insurance Providers Payer Name Payer Address Payer Phone Subscriber Number Group Number Insured Name Patient Relationship to Insured Coverage Start Date Coverage End Date [facility] [employer] Claims [address] [place] [address] [id number] Nato Goodman Self - patient is the [...]
--- OUTSIDE RECORDS SUMMARY | 2025-10-03 08:00 | XMS_ITS | Encounter Summary ---
Author Organization [employer] Address [address] [place] [address] 7 [place] [address] Care Team Providers Care Hot Plate Plywood Press Laborer Name Role Phone Unavailable Primary Care Provider Unavailabl e Encounter Details Date Type Department Care Team (Latest Contact Info) Description 01/15/2022 Abstract [facility] CONVERSION[facility] Dental, Provider, DDS Social History [...] Description 10/30/2025 9:00 AM EST Office Visit [facility] OPTOMETRY [address] [place] [address] Hiren, Maria A, OD [address] [place] [address] 02/07/2026 8:00 AM EDT Office Visit [facility] ADULT DENTAL [address] [place] [address] Nona Montanez documented as of this encounter Visit Diagnoses Not on filedocumented in this encounter
--- OUTSIDE RECORDS SUMMARY | 2025-10-03 08:00 | XMS_ITS | Clinical Summary ---
Author Organization [facility] Address [address] [facility] [address] [place] [address] Phone Care Team Providers Care Manager Storage Name Role Phone Unavailable Primary Care Provider [...] patient's age to complete this topic IPV VACCINES Aged Out No longer eligi ble [...] It is not the complete legal health record.[facility]
--- OUTSIDE RECORDS SUMMARY | 2025-10-03 08:00 | XMS_ITS | Encounter Summary ---
Author Organization [employer] Address [address] [place] [address] 7 [place] [address] Care Team Providers Care Tire Service Technician Name Role Phone Unavailable Primary Care Provider Unavailabl e Reason for Visit * Reason Onset Date Comments referral to [place] [facility] y 12/28/2024 Encounter Details Date Type Department Care Team (Late st Contact Info) Description 12/28/2024 Telephone [facility] ADULT D[facility] [address] [place] [address] Yuliana Jung, DDS [address] [place], [place] [phone] referral to [facility] Social History Tobacco Use Types [...] referral faxed over to [facility] in [place]. They state they have not received. Faxed over again today from [facility] ariane CROWLEY documented in this encounter Plan of Treatment Upcoming Encounters Date Type Department Care Team (Late st Contact Info) Description 10/30/2025 9:00 AM EST Office Visit [facility] OPT[facility] [address] [place] [address] Maria A Maradiaga, OD [address] [place] [address] 02/07/2026 8:00 AM EDT Office Visit [facility] ADULT [facility] [address] [place] [address] Nona Montanez documented as of this encounter Visit Diagnoses Not on filedocumented in this encounter
--- OUTSIDE RECORDS SUMMARY | 2025-10-03 08:01 | XMS_ITS | Data Portability ---
Author Organization [facility], [facility] Address [address] [place] [address] Care Team Providers Care Sleeve Ironer Name Role Phone HIM CCA OTHER Assessment Encounter Date Assessment Date Assessment LastModified by Organization Details LastModified Time 08/12/2025 08/12/2025 I provided real -time medical direction via phone for this encounter and was available for additional phone-based assistance as needed. I have reviewed and agree with the Assessment and Plan as documented by the Behavioral Health Associate. Patient given the opportunity to ask questions. Our service contacted for an assessment of: 2+ weeks of fatigue As per above, patient with above complaints. Recently saw her party plan sales agent in f/u for bradycardia which is not new. No medication changes were made. Per investigative research specialist on the scene, VSS, HR in the upper 50's and low 60's Please read the investigative research specialist note for their exam findings. Impression: Fatigue - chronic and more than 2 weeks + in duration. Chronic bradycardia. Plan: close f/u with PCP, cardiology. Bradycardia is not causing hypotension and there is concerning finding on BMP to explain chronic/subacute issue of fatigue. Red flags discussed. Allergies: Reviewed PCP f/u: Could use in-person visit for fatigue management. We discussed the diagnostic uncertainty of home visits and the risk associated with this. In this case, the patient and I felt this to be an acceptable and reasonable amount of risk given the benefit of avoiding an ED visit. We discussed the need to seek care urgently/emergentl y in the setting of any new or worsening serious symptoms, particularly fever chills lightheadedness altered mental status [email or web address] Not available 08/12/2025 15:23:26 Plan of Treatment Reminders Order Date Submit Date Provider Last Modified By Organization Details Last Modified Time Details Appointments None recorded. Lab BMP, serum or plasma 2024 025 [email or web address] [facility], [address] [place] [address], [phone] 16:24:31 Referral None recorded. Procedures None recorded. Surgeries None recorded. Imaging electrocard iogram 2024 025 [email or web address] [facility], [address] [place] [address], [phone] 14:40:17 Medication Orders None recorded. Patient TargetsNo targets recorded. Patient InstructionsNo instructions recorded. Reason for Referral None Reported. Results Created Date Observation Date Name Description Value Unit Range Abnormal Flag Note LastModifiedBy Organization Detail LastModifiedTime 08/12/2008/12/2025 elect yuan diogr am No observ ation record ed. [email or web address] [address], [phone] 08/12/2025 16:24:48 Result Notes None recorded. Medical Equipment None Reported. Allergies No known drug allergies Medications Name Sig Start Date Stop Date Status Note LastModified by Organization Details LastModified Time amoxicillin 500 mg capsule TAKE 1 CAPSULE BY MOUTH EVERY 8 HOURS FOR 7 DAYS 08/12 completed Not Available Not Available Not Available latanoprost 0.005 % eye drops PONGA INGRIS GOTA EN LOS DOS OJOS TODOS LOS D POR LA NOCHE active Not Available Not Available No t Available atorvastati n 80 mg tablet TAKE 1 TABLET BY MOUTH ONCE DAILY active Not Available Not Available No t Available gabapentin 600 mg tablet TAKE 1 TABLET BY MOUTH THREE TIMES DAILY active Not Available Not Available No t Available fosfomycin tromethamin e 3 gram oral packet USE 1 SACHET POR V A ORAL EVERY 3 DAYS FOR 6 DAYS 08/12 completed Not Available Not Available Not Available venlafaxine ER 150 mg capsule,ext ended release 24 hr TAKE 1 CAPSULE BY MOUTH EVERY EVENING active Not Available Not Available No t Available cyanocobala min (vit B-12) 1,000 mcg tablet TAKE 1 TABLET BY MOUTH EVERY DAY active Not Available Not Available No t Available tramadol 50 mg tablet TOME INGRIS TABLETA POR V A ORAL DOS VECES AL D A ONLY NEEDED FOR PAIN active Not Available Not Available No t Available acetaminoph en 500 mg tablet TAKE 1 TABLET BY MOUTH EVERY 4 TO 6 HOURS NEEDED active Not Available Not Available No t Available lithium carbonate ER 450 mg tablet,exte nded release TAKE 3 TABLETS BY MOUTH EVERY MORNING DIRECTED active Not Available Not Available No t Available lorazepam 0.5 mg tablet TAKE 1 TABLET BY MOUTH EVERY MORNING NEEDED active Not Available Not Available No t Available lorazepam 2 mg tablet TAKE 1 TABLET BY MOUTH AT 5 pm active Not Available Not Available No t Available brimonidine 0.2 % eye drops PONGA INGRIS GOTA EN LOS DOS OJOS DOS VECES AL D A active Not Available Not Available No t Available omeprazole 20 mg capsule,del ayed release TAKE 1 CAPSULE BY MOUTH EVERY DAY NEEDED FOR GASTRIC ACIDITY active Not Available Not Available No t Available ergocalcife rol (vitamin D2) 1,250 mcg (50,000 unit) capsule TAKE 1 CAPSULE BY MOUTH ONCE A WEEK active Not Available Not Available No t Available ibuprofen 600 mg tablet TAKE 1 TABLET BY MOUTH EVERY 6 TO 8 HOURS NEEDED active Not Available Not Available No t Available zolpidem 10 mg tablet TAKE 1 TABLET BY MOUTH AT BEDTIME active Not Available Not Available No t Available albuterol sulfate HFA 90 mcg/actuati on aerosol inhaler INHALE 2 PUFFS EVERY 6 HOURS NEEDED FOR WHEEZING OR SHORTNESS OF BREATH FOR 30 DAYS. active Not Available Not Available No t Available oxycodone 5 mg tablet TAKE 1 TABLET BY MOUTH EVERY 6 HOURS NEEDED FOR BREAKTHRO UGH PAIN active Not Available Not Available No t Available nitrofurant oin monohydrate /macrocryst als 100 mg capsule TOME 1 C PSULA POR V A ORAL DOS VECES AL D A POR 10 D CON ALIMENTO 08/12 completed Not Available Not Available Not Available eszopiclone 3 mg tablet TAKE 1 TABLET BY MOUTH EVERY DAY AT BEDTIME active Not Available Not Available No t Available chlorhexidi ne gluconate 0.12 % mouthwash SWISH 15 ML IN THE MOUTH OR THROAT FOR 30 SECONDS THEN SPIT OUT TWICE DAILY IN THE MORNING AND IN THE EVENING AFTER BRUSHING TEETH DO NOT SWALLOW active Not Available Not Available No t Available Gavilax 17 gram/dose oral powder MIX IN 64 OZ OF GATORADE FOR COLONOSCO PY PREP active Not Available Not Available No t Available lurasidone 80 mg tablet TAKE 1 TABLET BY MOUTH AT BEDTIME active Not Available Not Available No t Available Eliquis 5 mg tablet TAKE 1 TABLET BY MOUTH TWICE DAILY active Not Available Not Available No t Available Belsomra 20 mg tablet TAKE 1 TABLET BY MOUTH AT BEDTIME active Not Available Not Available No t Available Arnuity Ellipta 100 mcg/actuati on powder for inhalation INHALE 1 PUFF BY MOUTH EVERY DAY AT THE SAME TIME active Not Available Not Available No t Available Rocklatan 0.02 %-0.005 % eye drops PONGA INGRIS GOTA EN LOS DOS OJOS TODOS LOS D POR LA NOCHE active Not Available Not Available No t Available Dayvigo 10 mg tablet TAKE 1 TABLET BY MOUTH AT BEDTIME active Not Available Not Available No t Available Vitals None Recorded Social History None recorded. Functional Status None recorded. Mental Status None recorded. Family History Nothing Reported. Medical History No medical history recorded. Gynecological HistoryNo gynecological history recorded. Obstetrics History GPAL:G 0 P 0 0 0 0 Past Encounters Encounter ID Performer Location Encounter Start Date Encounter Closed Date Diagnosis/Indication Diagnosis SNOMED-CT Code Diagnosis ICD10 Code Diagnosis IMO Codes Diagnosis Note [id number] Zakia Ruff MD [facility] ED Medical [address] [phone] 08/12/2025 14:23:53 08/13/2025 00:15:50 Bradycardia 03435384 R00.1 81853 Health Concerns Section Related Observation LastModified by Organization Detai ls LastModified Time None Recorded Concern Status LastModified by Organization Details LastModified Time None Recorded Advance Directives Directive None Recorded Payers Insurance Date Sequence Insurance Name Policy Number Policy Smart Covered Member ID Smart Member ID Guarantor Name 08/12/2025 1 [facility] - DOS ON OR AFTER 2023 - DUAL ELIGIBLE - SNF OPTIONS AND ONE CARE (MEDICARE REPLACEMENT/ADV ANTAGE - HMO) Nato Goodman [id number] Nato Goodman Notes Date Note Type Note Provider Name and Address Organization Details Recorded Time 08/12/2025 text/html HPI: Member called CRU c/o severe fatigue, chills and x 3 days. Member reports occasional chest pain. Denies sob, n/v, diarrhea or any other sx's. Member states she has normal appetite. She states she has poor fluid intake, per her norm. PMH includes, fibromyalgia, neuropathy, MDD, DVT, Asthma, Bipolar, FIDELIA, HTN. Member was able to speak in full sentences without pauses or breaks. .................... .................... .................... .................... .................... .................... .................... . [facility] Nurse Triage Notes (Katiuska Berrios): Reason For Request: weakness Chief Complaints: Weakness PMH: Anxiety Disorder, Hypertension, Depression, Deep Vein Thrombosis, Asthma, Bipolar Disorder, Fibromyalgia PMH Reviewed at 08/12/2025 Allergies Reviewed at 08/12/2025 Comments: HPI reviewed Behavioral Health Associate Organization Information for Jamie Quinones Business Legal Name: [employer]. Address: [address] [place] [address], Supervisor In Charge: Hernesto Pitts MD CLIA No.: [id number] Behavioral Health Associate POC Test Results from Jamie Quinones EKG (14:11:19) EKG test performed. Attachments uploaded as part of this test result can be found under Documents section. iSTAT Chem8+ (14:42:19) Na: 140mEq/L K: 4.3mEq/L Cl: 104mEq/L iCa: 1.13mmol/L TCO2: 22mmol/L Glu: 113mg/dL BUN: 13mg/dL Crea: 1.0mg/dL Hct: 37% Hb: 12.6g/dL Ammol/L Cartridge Number: --- Attachments uploaded as part of this test result can be found under Documents section. .................... .................... .................... .................... .................... .................... .................... . Behavioral Health Associate Note From Jamie Quinones: SC08 dispatched to the address listed above for the report of a female libertarian with weakness. Arrival on scene, patient found inside apartment seated in [...] EKG performed as noted and uploaded to [employer] for remote interpretation, computer interpretation indicated sinus bradycardia with no additional findings. [facility] [place], provided orders for BMP and to consult again. Blood draw completed via 23 gauge butterfly needle in the left hand, bleeding controlled with gauze. ISTAT BMP performed as noted and uploaded to [facility] [facility]. [facility] [place], advised to follow up with patient PCP/Sticker On. Red flags discussed with patient, advised to call 911 if her condition worsens. [facility] Clear. [facility] [place] Orders: electrocardiogram: Performed BMP, serum or plasma: Performed .................... .................... .................... .................... .................... .................... .................... . [facility] [place] Consulted: Zakia Ruff .................... .................... .................... .................... .................... .................... .................... . Disposition: Fulfilled Zakia Ruff MD [address] [facility],[address] [facility], [place], [phone], OFELIA DUNCAN 08/12/2025 16:07:01 OBGyn Episode No OBEpisode recorded.
--- OUTSIDE RECORDS SUMMARY | 2025-10-03 08:01 | XMS_ITS | Clinical Summary ---
Author Organization [employer] Address [address] [place] [address] [address] [place] [address] Care Team Providers Care Call Center Coordinator Name Role Phone Unavailable Primary Care Provider [...] 22 Active cholecalciferol (Vitamin D-3) 1.25 MG (24817 UT) capsule cholecalciferol (vitamin D3) 1,250 mcg [...] 16 Active ergocalciferol (Vitamin D2) 1.25 MG (92972 UT) capsule Take 1 capsule by mouth [...] Description 08/05/2025 8:00 AM EDT Office Visit [facility] [address] [place] [address] Nona Montanez Dental calculus (Primary Dx); Encounter for dental examination; Localized gingival recession; Dental plaque 08/05/2025 Telephone [facility] [address] [place] [address] Yuliana Jung DDS from Last [...] Description 10/30/2025 9:00 AM EST Office Visit [facility] [address] [place] [address] Hiren, Maria A, OD [address] [place] [address] 02/07/2026 8:00 AM EDT Office Visit [facility] [address] [place] [address] Nona Montanez Health Maintenance Due Date Last [...] Most Recently Relevant to Health Maintenance Insurance [place] [id number] [facility]
[2025-10-03 08:11] LABS: MANUAL DIFF FLAG NO
[2025-10-03 08:39] LABS: Hematocrit 36.4 % (37.0-47.0); Hemoglobin 11.4 g/dl (12.0-16.0); Imm Gran Abs Auto 0.02 X10*3/uL (0.00-0.03); Imm Gran Pct Auto 0.3 % (0.0-0.4); Lymphocytes Absolute Auto 2.6 X10*3/uL (1.2-4.9); Mean Corpuscular HGB Conc 31.3 g/dl (31.0-35.0); Mean Corpuscular Hemoglobin 26.8 pg (27.0-33.0); Mean Corpuscular Volume 85.4 fL (80.0-98.0); NRBC Abs Auto 0.000 X10*3/uL (0.0-0.012); NRBC Pct Auto 0.0 /100WBC (0.0-0.2); Platelet Count 244 X10*3/uL (160-400); Red Blood Count 4.26 X10*6/uL (4.20-5.50); White Blood Count 6.7 X10*3/uL (4.8-10.8)
[2025-10-03 09:30] LABS: Alanine Aminotransferase 13 U/L (0-31); Albumin Level 4.1 g/dL (3.5-5.0); Alkaline Phosphatase 82 U/L (39-117); Anion Gap 13 (12-20); Aspartate Amino Transferase 28 U/L (5-31); Blood Urea Nitrogen 21 mg/dL (9-16); Calcium 8.8 mg/dL (8.4-10.2); Carbon Dioxide 21 mmol/L (22-29); Chloride 110 mmol/L (96-108); Cholesterol 181 mg/dL (<200); Estimated Glomerular Filt Rate 57; HDL Cholesterol 55 mg/dL (>40); Potassium 4.2 mmol/L (3.3-5.1); Sodium 140 mmol/L (135-145); Total Protein 7.1 g/dL (6.5-8.0); Triglycerides 113 mg/dL (<150)
[2025-10-03 09:40] LABS: Appearance Urine Clear; Glucose Urine UA Negative (Negative); PH 6.0 (5.0-9.0); Specific Gravity - Urine >= 1.030 (1.005-1.025)
[2025-10-03 10:13] LABS: Free T4 (Free Thyroxine) 0.87 ng/dL (0.71-1.85)
== END 2025-10-03 07:58 | disposition home or self-care (01) ==
LOC: HO.LAB 07:57
PROVIDERS: PCP Internal Medicine; Visit Provider Internal Medicine
DX: R30.0 Dysuria (principal); E78.00 Pure hypercholesterolemia, unspecified; J45.41 Moderate persistent asthma with (acute) exacerbation; G47.33 Obstructive sleep apnea (adult) (pediatric); I80.209 Phlebitis and thrombophlebitis of unspecified deep vessels of unspecified lower extremity; M17.11 Unilateral primary osteoarthritis, right knee; M79.7 Fibromyalgia; G62.9 Polyneuropathy, unspecified; G56.01 Carpal tunnel syndrome, right upper limb; E53.8 Deficiency of other specified B group vitamins; M54.50 Low back pain, unspecified; E55.9 Vitamin D deficiency, unspecified; G47.00 Insomnia, unspecified; F41.9 Anxiety disorder, unspecified; F33.9 Major depressive disorder, recurrent, unspecified; E66.9 Obesity, unspecified; D64.9 Anemia, unspecified; R03.0 Elevated blood-pressure reading, without diagnosis of hypertension
CPT/HCPCS: 36415; 80053; 80061; 81003; 82306; 84439; 84443; 85025; 96127; 99212

== ENCOUNTER 2025-10-03 08:46 | Outpatient (AMB) | payer OTHER, SELFPAY ==
[2025-10-03 08:47] VITALS: BP 116/78; PULSE 68; O2SAT 98; BMI 38.6
--- NOTE | 2025-10-03 08:47 | A.OFFPC_ITS ---
Vital Signs 10/03/25 08:47 Height 5 ft 5 in Weight 232 lb BMI 38.6 BP 116/78 Blood Pressure Location Lt brachial Position Sitting Pulse 68 Pulse Source Pulse Oximeter Pulse Oximetry (%) 98 Oxygen Delivery Method Room Air Intake Visit Reasons: 4 mnth f/u Production Technologist Required: Yes Production Technologist Name: [id number] Leslie Erik Information Interpreted: non-clinical & clinical User Interface Engineer: Not Required per policy Accompanied by: Self / Same As Patient Allergies No Known Allergies Allergy (Verified 10/03/25 09:19) Medication List - Last Reconciled 10/03/25 by Glynn Greco MD acetaminophen 325 mg PO DAILY PRN albuterol sulfate 2.5 mg inhalation QID PRN albuterol sulfate 90 mcg/actuation (Ventolin HFA) 2 puffs inhalation Q6H PRN 30 days apixaban (Eliquis) 5 mg PO BID atorvastatin 80 mg PO DAILY 90 days [COMPRESSION STOCKINGS (pantyhose) As directed] cyanocobalamin (vitamin B-12) 1,000 mcg PO DAILY 90 days dorzolamide-timolol 22.3-6.8 mg/mL 1 drp ophthalmic (eye) DAILY ergocalciferol (vitamin D2) 1,250 mcg PO QWEEK 3 months fosfomycin tromethamine 3 grams PO Q3D 6 days gabapentin 600 mg PO TID lithium carbonate ER 450 mg PO BID lorazepam 0.5 mg PO QAM PRN lurasidone 80 mg PO DAILY omeprazole 20 mg PO DAILY PRN polyethylene glycol 3350 (Miralax) 238 grams PO ONCE [rollator walker with seat As directed] terconazole 0.8% 1 appful vaginal BEDTIME 3 days tramadol 50 mg PO BID PRN 30 days Tobacco use date assessed: 10/03/25 Fall risk assessment: No Falls in past year Last assessed Fall Risk: 10/03/25 Dental Screening Dental Screen Date: 10/03/25 Did you have a dental visit in the last 12 months?: Yes Did you have a dental problem in the last 6 months where you did not have access to dental care?: No Was dental information given to patient?: Patient has dentist HPI 4 mnth f/u HPI Details Patient comes in today for her follow-up visit States that she feels okay She denies any headaches or dizziness Denies any chest pains, still has mild shortness of breath especially with exertion No nausea/vomiting, no abdominal pain No change in bowel habits noted She continues to experience multiple joint pains as well as recurrent numbness/tingling sensation in her right hand She was seen by orthopedics recently and is now being scheduled for right cubital tunnel release surgery, pending completion of her cardiology evaluation She just had an echocardiogram done last week, which showed a low normal LVEF at 54% but no valvular pathology She currently still has a Holter monitor on Feels that her low back pain has been getting worse lately and she would like to get a referral to see a back specialist to help with her pain States that she is also interested in getting on a GLP-1 if possible to help her lose some weight as she believes that losing some weight will help with a lot of her increasing pain in her lower back and her other joints Needs her Tramadol Rx refilled She had her follow up labs done earlier this morning - to discuss her results [facility] Medical History (Updated 10/03/25 @ 10:21 by Glynn Greco MD) Low back pain Bradycardia ROBERTO CARLOS on CPAP Insomnia Morbid obesity with BMI of 40.0-44.9, adult Pure hypercholesterolemia Exertional dyspnea Fatigue Cough Lumbar degenerative disc disease Phlegmasia cerulea dolens Obstructive sleep apnea COVID-19 Hyperthyroidism Anxiety Obstructive sleep apnea Condyloma acuminata Vitamin B12 deficiency Lung granuloma Phlegmasia cerulea dolens Chronic low back pain Vitamin D deficiency Obesity (BMI 30-39.9) Fibromyalgia Depression Neuropathy DVT (deep venous thrombosis) Asthma DDD (degenerative disc disease) Surgical History Hx of cholecystectomy History of esophagogastroduodenoscopy (EGD) S/P laparoscopic appendectomy History of embolectomy Benign neoplasm of neck History of colonoscopy History of bilateral tubal ligation History of carpal tunnel release History of bilateral oophorectomy S/P IVC filter Family History Father Liver cirrhosis Cancer Mother Heart attack Coronary artery disease Asthma Diabetes mellitus Brother No problems noted. Sister No problems noted. Sister No problems noted. Sister No problems noted. Sister No problems noted. Sister No problems noted. Sister No problems noted. Sister No problems noted. Sister No problems noted. Sister No problems noted. Sister No problems noted. Sister No problems noted. Sister No problems noted. Sister No problems noted. Paternal Aunt Colon cancer Son Histiocytosis Son No problems noted. Son No problems noted. Social History Household Members: Children Housing: Apartment Do you presently have visiting nurse or other home services: Yes ([employer]) Alcohol intake: former Patient Tobacco Use Status: Never used Tobacco e-Cigarette/Vaping Use: Never Used Second Hand Smoke Exposure: No Advance Directives Date on File: 08/15/23 service: No Current occupational status: disabled Current occupation: right hand Current occupational exposures/hazards: No Cognitive needs: Yes (cane) Hearing needs: No Vision needs: Yes Questionnaire PHQ-9 Over the last 2 weeks, how often have you been bothered by any of the following problems? 1. Little interest or pleasure in doing things: several days 2. Feeling down, depressed, or hopeless: several days 3. Trouble falling or staying asleep, or sleeping too much: more than half the days 4. Feeling tired or having little energy: more than half the days 5. Poor appetite or overeating: several days 6. Feeling bad about yourself - or that you are a failure or have let yourself or your family down: not at all 7. Trouble concentrating on things, such as reading the newspaper or watching television: several days 8. Moving or speaking so slowly that other people could have noticed. Or the opposite - being so fidgety or restless that you have been moving around a lot more than usual: not at all 9. Thoughts that you would be better off or of hurting yourself in some way: not at all Total score: 8 Depression Screening Interpretation: Positive Depression Screening Follow-up: Existing condition and In treatment Depression Screening Done: Yes 50211 - PHQ-9 Billing: Yes Source: Developed by Drs. Jamel Hong, Carmen Villanueva, Gilbert Jara and colleagues, with an educational son from [employer]. Thrive Questionnaire Date Thrive assessed: 10/03/25 I am a: Patient What is your living situation today?: I have a steady place to live Within the past 12 months, did the food you bought not last and you didn't have the money to get more?: I choose not to answer this question Within the past 12 months, did you worry whether your food would run out before you got money to buy more?: Never true Do you have trouble paying for medicines?: No Do you have trouble getting transportation to medical appointments?: No Do you have trouble paying your heating and electricity bill?: No Do you have trouble taking care of your child, family member or friend?: I choose not to answer this question Do you have trouble with day-to-day activities such as bathing, preparing meals, shopping, managing finances, etc.?: Yes Are you currently unemployed and looking for a job?: No Are you interested in more education?: No Please select the resources that you would like help with: None Currently or been in a relationship where the following occur: I choose not to answer THRIVE Score: 0 AUDIT C Alcohol Use Questionnaire (AUDIT-C) 1. How often do you have a drink containing alcohol?: Never 3. How often do you have six or more drinks on one occasion?: Never Total Score: 0 Score Reviewed/Action Taken: Yes FIDELIA-7 AMB Questionnaire FIDELIA-7 Date FIDELIA - 7 assessed: 10/03/25 Feeling nervous, anxious, or on edge: 0 = Not at all Not being able to stop or control worryin = Not at all Worrying too much about different things: 3 = Nearly every day Trouble relaxin = Nearly every day Being so restless that it is hard to sit still: 3 = Nearly every day Becoming easily annoyed or irritable: 2 = More than half the days Feeling afraid as if something awful might happen: 1 = Several days Total FIDELIA-7 score (0-4 normal; 5-9 mild; 10-14 moderate; 15-21 severe): 12 Source: Developed by Drs. Jamel Hong, Carmen Villanueva, Gilbert Jara and colleagues, with an educational son from [employer]. Review of Systems Const Denies chills, Reports difficulty sleeping, Reports fatigue (chronic), Denies fever(s) and Denies headache(s) ENT Denies dysphagia, Denies dizziness, Denies otalgia, Denies headache(s), Reports neck pain, Denies odynophagia and Denies sore throat Card Denies chest pain, Denies palpitations and Reports dyspnea on exertion (mild; chronic) Resp Denies chest congestion, Denies cough and Reports dyspnea on exertion (mild; chronic) GI Denies abdominal pain, Denies constipation, Denies dysphagia, Denies heartburn, Reports loose stools (at times - s/p cholecytectomy; stool sometimes with (+) mucus), Denies nausea, Denies odynophagia and Denies vomiting Denies difficulty voiding, Denies nocturia, Denies dysuria (but sometimes c/o bladder pressure ), Reports urinary incontinence, Denies urinary urgency and Denies vaginal discharge Musc Reports back pain (over the lower back - chronic; increasing lately), Reports arthralgias (involving multiple joints - chronic), Denies joint swelling, Reports neck pain, Reports numbness (on and off in the right hand) and Reports stiffness Skin/Breast Denies rash Neuro Denies dizziness, Denies headache(s), Reports numbness (on and off in the right hand) and Reports paresthesias (over the lateral aspect of the right thigh - on and off) Psych Denies anxiety Endo Reports fatigue (chronic) and Denies palpitations Physical exam (Primary Care) Vital Signs: Last Vital Signs Pulse 68 10/03/25 08:47 BP 116/78 10/03/25 08:47 Pulse Ox 98 10/03/25 08:47 Oxygen Delivery Method Room Air 10/03/25 08:47 BMI result Body Mass Index 38.6 Tobacco/Smoking Status: Tobacco use Status Tobacco use date assessed 10/03/25 10/03/25 08:55 Patient Tobacco Use Status Never used Tobacco 10/03/25 08:55 e-Cigarette/Vaping Use Never Used 10/03/25 08:55 PHQ-9: PHQ-9 Score PHQ-9: Total score 8 10/03/25 08:55 Depression Screening Interpretation: Positive Depression Screening Follow-up: Existing condition and In treatment Thrive Assessment: Date of Thrive Assessment Date Thrive assessed 10/03/25 10/03/25 08:55 Currently or been in a relationship where the following occur: I choose not to answer Const General: no acute distress and alert HENMT Ears: TM's normal bilaterally and EAC's normal Throat: Yes posterior oropharynx normal and Yes tonsils normal (no TP congestion) Neck Neck: No lymphadenopathy Thyroid: Thyroid normal Resp Auscultation: clear to auscultation bilaterally, no crackles, no rales and no wheezes Cardio Rate: regular rate Rhythm: regular rhythm Heart sounds: no murmurs GI Palpation (GI): Soft to palpation and nontender Auscultation: normal bowel sounds General: Yes no CVA tenderness Back/Spine/Pelvis Back: no CVA tenderness Cervical Spine: cervical muscular tenderness (bilateral) Thoracic/Lumbar Spine: paraspinal muscle tenderness bilaterally and lumbar spinal tenderness Skin Rashes: no rashes Extrem General: No clubbing, No cyanosis and Yes edema (1+ bipedal edema) Right upper extremity: wrist Details: tenderness Location: of the volar wrist; Phalen's positive Results Reviewed Results Reviewed: Laboratory Tests 10/03/25 08:09 WBC 6.7 Hgb 11.4 L Hct 36.4 L Plt Count 244 Sodium 140 Potassium 4.2 Creatinine 0.97 Estimated GFR 57 Fasting Glucose 100 H Calcium 8.8 AST 28 ALT 13 Triglycerides 113 Cholesterol 181 LDL Cholesterol, Calc 104 H HDL Cholesterol 55 Coding Level of Care Code Est Pt Level 4 (93355) Diagnoses Pure hypercholesterolemia E78.00 Elevated blood pressure reading R03.0 Moderate persistent asthma with acute exacerbation J45.41 Asthma severity: moderate Asthma persistence: persistent Asthma complication type: with acute exacerbation Obstructive sleep apnea G47.33 Phlegmasia cerulea dolens, unspecified laterality I80.209 Laterality: unspecified laterality Primary osteoarthritis of right knee M17.11 Osteoarthritis type: primary Fibromyalgia M79.7 Neuropathy G62.9 Carpal tunnel syndrome of right wrist G56.01 Midline low back pain without sciatica, unspecified chronicity M54.50 Chronicity: unspecified Back pain laterality: midline Sciatica presence: without sciatica Vitamin B12 deficiency E53.8 Vitamin D deficiency E55.9 Insomnia, unspecified type G47.00 Insomnia type: unspecified Anxiety F41.9 Episode of recurrent major depressive disorder, unspecified depression episode severity F33.9 Depression Type: major depressive disorder Major depression recurrence: recurrent Active/Remission status: currently active Major depression episode severity: unspecified Obesity (BMI 30-39.9) E66.9 Additional Codes PHQ-9 - 92507 - PHQ-9 Billing: Yes ([id number]) Assessment & Plan Assessment & Plan (1) Pure hypercholesterolemia: Code(s): E78.00 - Pure hypercholesterolemia, unspecified Category: Medical Plan: Results of her labs done earlier this morning reviewed and discussed with patient - her cholesterol levels have improved slightly from previous Reinforced low cholesterol diet Continue Atorvastatin 80 mg QD Will recheck her labs and fasting lipids in 4 months for follow-up (2) Elevated blood pressure reading: Code(s): R03.0 - Elevated blood-pressure reading, without diagnosis of hypertension Category: Medical Plan: Her BP today remains well-controlled Reinforced low sodium diet Patient is reminded to continue monitoring her BP regularly (3) Asthma: Code(s): J45.909 - Unspecified asthma, uncomplicated Category: Medical Qualifiers: Asthma severity: moderate Asthma persistence: persistent Asthma complication type: with acute exacerbation Qualified Code(s): J45.41 - Moderate persistent asthma with (acute) exacerbation Plan: Controlled at present Continue Arnuity Ellipta 100 mcg 1 inhalation QD and Ventolin HFA 108 (90 Base) MCG/ACT, 2 puffs every 6 hrs as needed Follow up with [facility] Pulmonary as scheduled (4) Obstructive sleep apnea: Code(s): G47.33 - Obstructive sleep apnea (adult) (pediatric) Category: Medical Plan: She has not been able to use her CPAP device for a while now due to poor mask fit Follow up with Sleep Medicine as scheduled (5) 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 - goes to the Coumadin clinic for PT/INR monitoring Code(s): I80.209 - Phlebitis and thrombophlebitis of unspecified deep vessels of unspecified lower extremity Category: Medical Qualifiers: Laterality: unspecified laterality Qualified Code(s): I80.209 - Phlebitis and thrombophlebitis of unspecified deep vessels of unspecified lower extremity Plan: Continue Eliquis 5 mg BID She was on Warfarin Sodium Tablet, 5 MG, 2 tablets QD in the past but was switched over to Eliquis 5 mg BID by hematology a couple of years ago Follow up with hematology as scheduled (6) Osteoarthritis of right knee: Code(s): M17.11 - Unilateral primary osteoarthritis, right knee Category: Medical Qualifiers: Osteoarthritis type: primary Qualified Code(s): M17.11 - Unilateral primary osteoarthritis, right knee Plan: Right knee x-rays done back in August 2024 revealed (+) mild degenerative changes of the right knee, with no acute fracture or dislocation noted Patient states that she has received some cortisone injection into her knee in the past with temporary relief of her symptoms Follow-up with orthopedics as scheduled (7) Fibromyalgia: Code(s): M79.7 - Fibromyalgia Category: Medical Plan: Continue Tizanidine HCl 4 mg TID PRN for muscle pains, Tylenol 325 MG, 2 tablets Orally every 12 hrs as needed and Gabapentin 600 mg TID for pain control/management Continue Tramadol 50 mg TID PRN for pain - Rx refilled She is again encouraged to try to stay active and exercise regularly to help manage her fibromyalgia symptoms. (8) Neuropathy: Code(s): G62.9 - Polyneuropathy, unspecified Category: Medical Plan: Continue Gabapentin 600 MG 1 tablet 3 times a day Will consider repeating NCV if symptoms persist/worsen (9) Carpal tunnel syndrome of right wrist: Code(s): G56.01 - Carpal tunnel syndrome, right upper limb Category: Medical Plan: (+) Hx of median nerve release a few years ago but symptoms have recurred and have gotten worse Patient previously declined offer to send her for repeat NCV & EMG as she report edly still remembers how painful the procedure was a few years ago but agreed to go for the test again a few months ago as her wrist / hand symptoms have gotten worse lately Tests done in June 2025 revealed (+) mild right ulnar neuropathy across elbow She was seen by orthopedics last month and was recommended to undergo right cubital tunnel release surgery but they are waiting on patient to complete her cardiology evaluation before scheduling her for surgery (10) Low back pain: Code(s): M54.50 - Low back pain, unspecified Category: Medical Qualifiers: Chronicity: unspecified Back pain laterality: midline Sciatica presence: without sciatica Qualified Code(s): M54.50 - Low back pain, unspecified Plan: Reinforced activity and weight-lifting restrictions Lumbar spine and SI joint x-rays done back in 2020 revealed (+) mild degenerative disc disease at L1-L2 and T11-T12 with degenerative endplate spurring and mild loss of disc space height. The sacroiliac joint spaces are maintained without significant degenerative changes Will have patient go and get some updated lumbar spine x-rays and per request, refer her to pain management for her increasing low back pain (11) Vitamin B12 deficiency: Code(s): E53.8 - Deficiency of other specified B group vitamins Category: Medical Plan: Continue Vitamin B12 1000 mcg QD (12) Vitamin D deficiency: Code(s): E55.9 - Vitamin D deficiency, unspecified Category: Medical Plan: Continue Vitamin D2 57793 units once a week (13) Insomnia: Code(s): G47.00 - Insomnia, unspecified Category: Medical Qualifiers: Insomnia type: unspecified Qualified Code(s): G47.00 - Insomnia, unspecified Plan: Sleep hygiene reinforced She was taking Zolpidem 10 mg Q HS PRN previously but states that she was taken off this by her psychiatrist and started on an unrecalled Rx, which she thinks is helping somewhat (14) Anxiety: Code(s): F41.9 - Anxiety disorder, unspecified Category: Medical Plan: Continue Lorazepam 0.5 mg QD PRN (15) Depression: Comment: Recurrent MDD Code(s): F32.9 - Major depressive disorder, single episode, unspecified Category: Medical Qualifiers: Depression Type: major depressive disorder Major depression recurrence: recurrent Active/Remission status: currently active Major depression episode severity: unspecified Qualified Code(s): F33.9 - Major depressive disorder, recurrent, unspecified Plan: Continue Latuda 80 mg Q HS and [place] ER 450 mg BID She was previously also on Venlafaxine ER 150 mg QD but does not seem to be taking this anymore - unclear if this was discontinued by psychiatry or not Follow up with psychiatry as scheduled (16) Obesity (BMI 30-39.9): Comment: She is actually morbidly obese with BMI of 41. Again stressed about losing weight, she is not able to do any active exercise. Trying to decrease her calories intake as much as she can, Code(s): E66.9 - Obesity, unspecified Category: Medical Plan: Reinforced diet; exercising is impractical given patient's multiple physical issues She is interested in being tried on a GLP-1 injection to help her lose weight Have advised patient to at least wait until her cardiology evaluation is completed Have also advised patient that her health insurance plan may not cover any of the GLP-1s for weight loss and she may have to go to weight management later on to be able to get on these if appropriate Plan Follow up in 4 months Orders: Orders Comprehensive [place]. Panel Fast 4 Months E78.00 - Pure hypercholesterolemia, unspecified Lipid Panel 4 Months E78.00 - Pure hypercholesterolemia, unspecified UA CC w/rflx Micro + Cult 4 Months R30.0 - Dysuria Complete Blood Count Auto Diff 4 Months D64.9 - Anemia, unspecified TSH reflex Free T4 4 Months E78.00 - Pure hypercholesterolemia, unspecified XR lumbar spine 2-3V Today M54.50 - Low back pain, unspecified Referrals Pain Management Referral M54.50 - Low back pain, unspecified Medications: Refilled tramadol Take 1 tablet orally 2 times a day ONLY as needed 50 mg PO BID PRN 60 tabs 0RF pain 30 days
== END 2025-10-03 09:45 | disposition home or self-care (01) ==
LOC: HO.HMCH 08:47
PROVIDERS: PCP Internal Medicine; Visit Provider Internal Medicine
DX: E78.00 Pure hypercholesterolemia, unspecified (principal); R03.0 Elevated blood-pressure reading, without diagnosis of hypertension; J45.41 Moderate persistent asthma with (acute) exacerbation; G47.33 Obstructive sleep apnea (adult) (pediatric); I80.209 Phlebitis and thrombophlebitis of unspecified deep vessels of unspecified lower extremity; M17.11 Unilateral primary osteoarthritis, right knee; M79.7 Fibromyalgia; G62.9 Polyneuropathy, unspecified; G56.01 Carpal tunnel syndrome, right upper limb; M54.50 Low back pain, unspecified; E53.8 Deficiency of other specified B group vitamins; E55.9 Vitamin D deficiency, unspecified; G47.00 Insomnia, unspecified; F41.9 Anxiety disorder, unspecified; F33.9 Major depressive disorder, recurrent, unspecified; E66.9 Obesity, unspecified

== ENCOUNTER 2025-10-24 10:45 | Outpatient (AMB) | payer OTHER, SELFPAY ==
--- NOTE | 2025-10-24 10:54 | MHC.OFFVIS ---
Vital Signs 10/24/25 11:02 Height 5 ft 5 in Weight 230 lb 2 oz BMI 38.3 BP 124/72 Blood Pressure Location Rt brachial Position Sitting Pulse 80 Pulse Source Pulse Oximeter Intake Visit Reasons: Low back pain, unspecified Intake Note: Pain today 3/10 Cupola Charger Insulation Required: Yes Cupola Charger Insulation Language: Food Service Assistant Name: Ben #[id number] Allergies No Known Allergies Allergy (Verified 10/24/25 11:18) HPI Comments Details: The patient is a 65-year-old female presenting with acute right-sided sciatica pain that began about three weeks ago. She reports the pain started spontaneously without any specific injury or fall. The patient describes the pain as constant, pulsing, and aching, which worsens with standing or walking and is relieved by lying down or changing positions. Her pain is currently a 3/10 but can increase to a 6-8/10 by the end of the day and negatively impacts her daily activities, movement, and sleep. She experienced a particularly severe episode of pain while sitting on Tuesday that caused her to scream. The patient's past medical history is significant for chronic low back pain, lumbar degenerative disc disease, fibromyalgia, and some neuropathy. She has a history of DVT in her right leg, has an IVC filter, and takes Eliquis. She also has a history of sleep apnea, for which she has a CPAP machine but is non-adherent with its use. For her back pain, she uses Tylenol, tramadol, and gabapentin. She tried physical therapy in 2020 but did not like it and has not started it again for this current episode. She has received pain injections in the past from another pain clinic which were helpful, as well as an injection in her knee. She has not had an MRI of her back. - Onset: Approximately 3 weeks ago, with spontaneous onset. - Location: Right-sided sciatica pain. - Quality: Described as constant, pulsing, and aching. - Severity: Rated as 3/10 at present, increasing to 6-8/10 by the end of the day. - Exacerbating factors: Standing, walking, climbing stairs, cold weather and bending forward. - Alleviating factors: Lying down, sitting, and changing positions. Traadol, gabapentin and Tylenol. - Impact on function: Pain affects daily activities, walking, movements, and sleep. - Analgesia: The patient is currently taking Tylenol and tramadol for her back pain. - She also takes gabapentin. - Her current pain level is 3/10, which can increase to 6-8/10 by the end of the day. - Activities of Daily Living: Pain interferes with daily activities, walking, movements, and sleep. - Affect: The patient reported a pain episode so severe she had to scream. Oswestry Low Back Pain Disability Score=22 [facility] Medical History Low back pain Bradycardia ROBERTO CARLOS on CPAP Insomnia Morbid obesity with BMI of 40.0-44.9, adult Pure hypercholesterolemia Exertional dyspnea Fatigue Cough Lumbar degenerative disc disease Phlegmasia cerulea dolens Obstructive sleep apnea COVID-19 Hyperthyroidism Anxiety Obstructive sleep apnea Condyloma acuminata Vitamin B12 deficiency Lung granuloma Phlegmasia cerulea dolens Chronic low back pain Vitamin D deficiency Obesity (BMI 30-39.9) Fibromyalgia Depression Neuropathy DVT (deep venous thrombosis) Asthma DDD (degenerative disc disease) Surgical History Hx of cholecystectomy History of esophagogastroduodenoscopy (EGD) S/P laparoscopic appendectomy History of embolectomy Benign neoplasm of neck History of colonoscopy History of bilateral tubal ligation History of carpal tunnel release History of bilateral oophorectomy S/P IVC filter Family History Father Liver cirrhosis Cancer Mother Heart attack Coronary artery disease Asthma Diabetes mellitus Brother No problems noted. Sister No problems noted. Sister No problems noted. Sister No problems noted. Sister No problems noted. Sister No problems noted. Sister No problems noted. Sister No problems noted. Sister No problems noted. Sister No problems noted. Sister No problems noted. Sister No problems noted. Sister No problems noted. Sister No problems noted. Paternal Aunt Colon cancer Son Histiocytosis Son No problems noted. Son No problems noted. Social History Household Members: Children Housing: Apartment Do you presently have visiting nurse or other home services: Yes ([employer]) Alcohol intake: former Patient Tobacco Use Status: Never used Tobacco e-Cigarette/Vaping Use: Never Used Second Hand Smoke Exposure: No Advance Directives Date on File: 08/15/23 service: No Current occupational status: disabled Current occupation: right hand Current occupational exposures/hazards: No Cognitive needs: Yes (cane) Hearing needs: No Vision needs: Yes Review of Systems Const Details: - Musculoskeletal: Reports chronic low back pain, fibromyalgia, and recent onset of right-sided sciatica for 3 weeks. - Neurological: Reports some neuropathy, denies bladder or bowel dysfunction or saddle anesthesia. - Sleep: Reports pain affects her ability to sleep. All systems reviewed & are unremarkable except as noted in HPI and below Physical Exam Vital Signs: Last Vital Signs Pulse 80 10/24/25 11:02 BP 124/72 10/24/25 11:02 BMI result Body Mass Index 38.3 General: Appears afebrile. Alert and oriented. Mood and affect appropriate. Follows and participates in conversation appropriately. Respiratory effort is unlabored. No cough. Able to transition from sit to stand unassisted. Uses cane with ambulation. Ambulates with bilaterally normal heel strike and toe off, mildly antalgic gait. General: Yes no CVA tenderness Back/Spine/Pelvis Other: Limited lumbar ROM due to pain. Lumbar extension and flexion reproduces mild to moderate pain. No midline TTP in [id number]-[id number] regions. Demonstrates 5/5 strength of quadriceps bilaterally as well as flexion/dorsiflexion of bilateral feet against resistance. 2+ pedal pulses bilaterally. Straight leg rise with dorsiflexion positive on the right. +1 patellar and +1 achilles reflexes bilaterally. Facet loading test positive bilaterally. Donald sign, Hi?s, Gaenslen, Pelvic compression and Stinchfield tests are positive bilaterally, right>left. No groin pain with I/E hip rotations. Valsalva maneuver negative. Back: no CVA tenderness Cervical Spine: cervical ROM normal, cervical muscular tenderness, No Cervical spine scars present and No Cervical spine tenderness Thoracic/Lumbar Spine: thoracic and lumbar spine normal to inspection, No Thoracic/lumbar spine scar(s), Lasegue's sign positive on the right and diffuse, pain with thoraco-lumbar ROM, paraspinal muscle tenderness on the right greater than left, thoraco-lumbar ROM limited, No thoracic spinal tenderness and lumbar spinal tenderness at L4 and at L5 Sacroiliac joints: bilaterally tender to palpation Extrem General: Yes capillary refill normal, Yes no clubbing, cyanosis or edema and Yes no calf tenderness Results Reviewed Results Reviewed: XR hip RT min 2V, XR lumbar spine 2-3V, XR sacroiliac joint 1-2V 11/17/21 CLINICAL INFORMATION: Reason for Exam M54.41 - Lumbago with sciatica, right side COMPARISON: Left hip radiographs 08/17/2013 TECHNIQUE: 3 views of the lumbar spine, 3 views of the sacroiliac joints and 2 views of the right hip FINDINGS/IMPRESSION: 5 nonrib-bearing lumbar-type vertebral bodies. Vertebral body heights are maintained. Alignment is maintained. Mild degenerative disc disease at L1-L2 and T11-T12 with degenerative endplate spurring and mild loss of disc space height. Sacroiliac joint spaces are maintained without significant degenerative change. Right hip joint space is maintained without significant degenerative change. No acute fracture or dislocation. IVC filter tip terminates at the level of L2. Multiple calcified phleboliths in the pelvis. Few nonspecific calcifications in the soft tissues lateral to the hip, possibly reflective of areas of fat necrosis given some demonstrate central lucency Assessment & Plan Assessment & Plan (1) Lumbar degenerative disc disease: Code(s): M51.36 - Other intervertebral disc degeneration, lumbar region Category: Medical (2) Right-sided low back pain with sciatica: Code(s): M54.41 - Lumbago with sciatica, right side Category: Medical Qualifiers: Chronicity: acute Sciatica laterality: sciatica of right side Qualified Code(s): M54.41 - Lumbago with sciatica, right side (3) Low back pain: Code(s): M54.50 - Low back pain, unspecified Category: Medical Qualifiers: Back pain laterality: midline Chronicity: unspecified Sciatica presence: without sciatica Qualified Code(s): M54.50 - Low back pain, unspecified Plan For the patient's acute flare of low back pain with radiculopathy and sacroiliac joint pain, a Medrol Dosepak will be prescribed to address acute symptoms. A referral will be placed for physical therapy at [facility]. An MRI of the lumbar spine will be considered if her symptoms do not improve after approximately 6-8 weeks of conservative treatment, including physical therapy. If physical therapy and medications are ineffective, interventional pain management options, such as injections, will be offered, which the patient reports were helpful in the past. All questions and concerns have been answered and patient agreed with the treatment plan. Follow up after PT and sooner as needed. Patient was informed and verbally consented to the use of an ambient scribe for clinic note documentation during this visit. Orders: Orders PT Evaluation and Treatment 10/24/25 M51.36 - Other intervertebral disc degeneration, lumbar region, M54.41 - Lumbago with sciatica, right side, M54.50 - Low back pain, unspecified Medications: New methylprednisolone (Medrol (Ry)) PO PER PKG DIR 21 ea 0RF pain M51.36 - Other intervertebral disc degeneration, lumbar region, M54.41 - Lumbago with sciatica, right side, M54.50 - Low back pain, unspecified Coding Level of Care Code New Pt Level 4 (64646) Diagnoses Lumbar degenerative disc disease M51.36 Acute right-sided low back pain with right-sided sciatica M54.41 Chronicity: acute Sciatica laterality: sciatica of right side Midline low back pain without sciatica, unspecified chronicity M54.50 Back pain laterality: midline Chronicity: unspecified Sciatica presence: without sciatica
[2025-10-24 11:02] VITALS: BP 124/72; PULSE 80; BMI 38.3
== END 2025-10-24 11:33 | disposition home or self-care (01) ==
LOC: HO.PMC 10:46
PROVIDERS: PCP Internal Medicine; Visit Provider Nurse Practitioner Family
DX: M51.369 Other intervertebral disc degeneration, lumbar region without mention of lumbar back pain or lower extremity pain (principal); M54.41 Lumbago with sciatica, right side; M54.50 Low back pain, unspecified
CPT/HCPCS: 99204

== ENCOUNTER → 2025-10-24 10:45 | Outpatient (BNVA) | payer OTHER, SELFPAY | PROVIDERS: PCP Internal Medicine; Visit Provider Nurse Practitioner Family | DX: M51.360 Other intervertebral disc degeneration, lumbar region with discogenic back pain only (principal); M54.41 Lumbago with sciatica, right side; G89.29 Other chronic pain; Z79.891 Long term (current) use of opiate analgesic; Z79.899 Other long term (current) drug therapy | CPT/HCPCS: 99202 ==

== ENCOUNTER 2025-11-15 13:19 | Outpatient (REF) | payer OTHER, SELFPAY ==
--- NOTE | ~2025-11-15 | XR_ITS ---
EXAMINATION: XR CHEST 2 VIEWS HISTORY: R05.9 - Cough, unspecified COMPARISON: Comparison is made with the prior examination dated 05/13/2024. FINDINGS: PA and lateral views of the chest are submitted. Again seen is a calcified granuloma in the left lower lobe. The lungs are otherwise clear. There is no pleural effusion, pneumothorax, or pulmonary vascular congestion. The heart is normal in size. There is degenerative disc disease of the spine. A portion of an IVC filter is seen in the upper abdomen. XR/XR chest 2V IMPRESSION: No acute cardiopulmonary abnormality. Electronically signed by: Jamel Sanz MD 11/15/2025 03:03 PM [facility]
--- OUTSIDE RECORDS SUMMARY | 2025-11-15 14:36 | XMS_ITS | Encounter Summary ---
Author Organization [employer] Address [address] [place] [address] [address] [place] [address] Care Team Providers Care Lead Front End Developer Name Role Phone Unavailable Primary Care Provider Unavailabl e Reason for Visit * Reason Onset Date Comments referral to [place] [facility] y 12/28/2024 Encounter Details Date Type Department Care Team (Late st Contact Info) Description 12/28/2024 Telephone [facility] ADULT D[facility] [address] [place] [address] Yuliana Jung, DDS [address] [place], [place] [id number] referral to [place] [facility] Social History Tobacco Use Types [...] referral faxed over to [facility] in [place]. They state they have not received. Faxed over again today from [facility] ariane CROWLEY documented in this encounter Plan of Treatment Upcoming Encounters Date Type Department Care Team (Late st Contact Info) Description 02/07/2026 8:00 AM EDT Office Visit [facility] [address] [place] [address] Nona Montanez documented as of this encounter Visit Diagnoses Not on filedocumented in this encounter
--- OUTSIDE RECORDS SUMMARY | 2025-11-15 14:36 | XMS_ITS | Encounter Summary ---
Author Organization [facility] [facility] Address [address] [place] [address] [address] [place] [address] Care Team Providers Care Wound Care Physician Name Role Phone Unavailable Primary Care Provider Unavailabl e Encounter Details Date Type Department Care Team (Latest Contact Info) Description 01/15/2022 Abstract [facility] CONVERSIONS Dental, Provider, DDS Social [...] Description 02/07/2026 8:00 AM EDT Office Visit [facility] ADULT DENTAL [address] [place] [address] Nona Montanez documented as of this encounter Visit Diagnoses Not on filedocumented in this encounter
--- OUTSIDE RECORDS SUMMARY | 2025-11-15 14:36 | XMS_ITS | Encounter Summary ---
Author Organization [facility] [facility] Address [address] [place] [address] [address] [place] [address] Care Team Providers Care Financial Analyst Accountant Name Role Phone Unavailable Primary Care Provider Unavailabl e Encounter Details Date Type Department Care Team (Latest Contact Info) Description 05/22/2019 Abstract [facility] CONVERSIONS Dental, Provider, DDS Social History Tobacco [...] Description 02/07/2026 8:00 AM EDT Office Visit [facility] ADULT [facility] [address] [place] [address] Nona Montanez documented as of this encounter Visit Diagnoses Not on filedocumented in this encounter
--- OUTSIDE RECORDS SUMMARY | 2025-11-15 14:36 | XMS_ITS | Clinical Summary ---
Author Organization [employer] Address [address] [place] [address] [address] [place] [address] Care Team Providers Care Medical Superintendent Name Role Phone Unavailable Primary Care Provider [...] 22 Active cholecalciferol (Vitamin D-3) 1.25 MG (16896 UT) capsule cholecalciferol (vitamin D3) 1,250 mcg [...] 16 Active ergocalciferol (Vitamin D2) 1.25 MG (33774 UT) capsule Take 1 capsule by mouth [...] Localized gingival recession 01/10/2024 Dental calculus 01/12/2023 Social History Tobacco Use Types Packs/Day Years [...] Description 02/07/2026 8:00 AM EDT Office Visit [facility]ULT [facility] [address] [place] [address] Nona Montanez Health Maintenance Due Date Last [...] PCV) 11/09/2020 11/09/2019 COVID-19 Vaccine (3 - 2024- season) 2025 04/21/2021, 03/25/2021 Influenza Vaccine (#1) 2025 09/03/2024, 2021 Dental X-Ray: Bitewings 01/31/2026 01/31/20, 01/10/2024, 12/14/2022, Additional history exists Dental Oral Exam 02/03/2026 08/05/2025, 10/2025, 01/10/2024, Additional history exists Dental Prophylaxis 02/03/2026 08/05/2025, 0 01/30/2025, 01/10/2024, Additional history exists Tobacco Screening 08/05/2026 08/05/2025 Dental X-Ray: Full Mouth 02/01/2028 01/30/2025, 04/2 01/2021 DTaP/Tdap/Td Vaccines (3 - Td or Tdap) [...] Procedure Name Priority Date/Time Associated Diagnosis Comments PROPHYLAXIS - ADULT Routine 08/05/2025 8 :00 AM EDT Dental calculus Encounter for dental examination Localized gingival recession Dental plaque PERIODIC ORAL EVALUATION - ESTABLISHED PATIENT Routine 08/05/2025 8:00 AM EDT Dental calculus Encounter for dental examination Localized gingival recession Dental plaque INTRAORAL - COMPLETE SERIES OF RADIOGRAPHIC IMAGES Routine 01/30/2025 8:00 AM EDT from Last 3 Months or Most Recently Relevant to Health [place] [address] [facility] < 63 KAVYA MCCORMICK [id number] [facility]
--- OUTSIDE RECORDS SUMMARY | 2025-11-15 14:36 | XMS_ITS | Encounter Summary ---
Author Organization [employer] Address [address] [place] [address] [address] [place] [address] Care Team Providers Care Senior Software Engineer Analytics Name Role Phone Unavailable Primary Care Provider Unavailabl e Reason for Visit * Reason Onset Date Comments emmanuel PA 03/12/2024 Encounter Details Date Type Department Care Team ([facility] st Contact Info) Description 03/12/2024 Telephone [facility] ADULT DENTAL [address] [place] [address] Anson Ledezma, AZRA [address] [place] [address] emmanuel PA Social History Tobacco Use Types [...] Description 02/07/2026 8:00 AM EDT Office Visit [facility] ADULT D[facility] [address] [place] [address] Nona Montanez documented as of this encounter Visit Diagnoses Not on filedocumented in this encounter
[2025-11-15 15:26] LABS: Resp Syncy Virus RNA Qual PCR NEGATIVE (Negative); SARS COV2 PCR INHOUSE NEGATIVE (Negative)
== END 2025-11-15 13:20 | disposition home or self-care (01) ==
LOC: HO.LAB 13:19
PROVIDERS: PCP Internal Medicine; Visit Provider Student in an Organized Health Care Education/Training Program
DX: R05.3 Chronic cough (principal); R50.9 Fever, unspecified; N39.0 Urinary tract infection, site not specified; M51.360 Other intervertebral disc degeneration, lumbar region with discogenic back pain only; M54.41 Lumbago with sciatica, right side
CPT/HCPCS: 71046; 87637; 99212

== ENCOUNTER → 2025-11-15 14:45 | Outpatient (BNV) | payer OTHER, SELFPAY | PROVIDERS: PCP Internal Medicine; Visit Provider Radiology Diagnostic Radiology | DX: R05.9 Cough, unspecified (principal) | CPT/HCPCS: 71046 ==